=== PATIENT | male | born 1950 | race Caucasian/White ===

== ENCOUNTER → 2017-06-02 15:33 | Outpatient (CLI) | payer OTHER, SELFPAY ==
--- NOTE | 2017-06-02 15:41 | XR_ITS ---
XR shoulder LT min 2V HISTORY: ITS.REASON: LEFT SHOULDER PAIN ORDERING PHYSICIAN: Maurilio Hi MD PATIENT AGE: 66 years COMPARISON: None FINDINGS: Moderate osteoarthritic changes of the acromioclavicular joint bony hypertrophy and subacromial stenosis. Osteoarthritic changes also involve the glenohumeral joint. Subcortical lucency and sclerosis noted at the greater tuberosity which may be seen with rotator cuff disease. No fracture or dislocation. There is a well-circumscribed lucency along the superior glenoid and could be due to an old injury or accessory center of ossification. 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
--- NOTE | 2017-06-02 15:41 | XR_ITS ---
EXAM: XR cervical spine 4V HISTORY: ITS.REASON: NECK PAIN ORDERING PHYSICIAN: Maurilio Hi MD PATIENT AGE: 66 years COMPARISON: None FINDINGS: There is normal alignment. There is slight decrease in the disc spaces from C2 to C7 worse at the C6-C7 level. Small anterior osteophytes are present and are more prominent at C5-C6 and C6-C7. There is mild foraminal narrowing on the right at C6-C7 and on the left at 4 and C4-C5. Facet hypertrophic changes are present C4-C7. No lytic or blastic change. IMPRESSION: Cervical spondylosis with multilevel degenerative disc disease worse at C5-C6 and C6-C7 with mild facet arthritic changes and mild bilateral foraminal narrowing as described above
== END ==
PROVIDERS: PCP Internal Medicine Adolescent Medicine; Visit Provider Internal Medicine Adolescent Medicine
DX: M54.2 Cervicalgia (principal); M25.512 Pain in left shoulder
CPT/HCPCS: 72050; 73030

== ENCOUNTER 2017-06-10 11:20 | Outpatient (RCR) | payer OTHER, SELFPAY | END 2017-06-10 11:21 | disposition home or self-care (01) | LOC: PT 11:20 | PROVIDERS: PCP Internal Medicine Adolescent Medicine; Visit Provider Internal Medicine Adolescent Medicine | DX: M54.2 Cervicalgia (principal); M25.512 Pain in left shoulder ==

== ENCOUNTER → 2017-06-22 14:33 | Outpatient (POV) | payer OTHER, SELFPAY | PROVIDERS: PCP Internal Medicine Adolescent Medicine; Visit Provider Internal Medicine | DX: Z00.00 Encounter for general adult medical examination without abnormal findings (principal) ==

== ENCOUNTER → 2017-07-06 07:44 | Outpatient (CLI) | payer OTHER, SELFPAY ==
--- NOTE | 2017-07-06 07:48 | CT_ITS ---
CT chest wo con HISTORY: ITS.REASON: MULTIPLE LUNG NODULES ORDERING PHYSICIAN: Naresh Kidd MD PATIENT AGE: 66 years Technique: Axial images obtained. Sagittal and coronal reformatted images are also generated and reviewed. All CT scans at the facility use one or more dose reduction, viz: automated exposure control; ma/kV adjustment per patient size (including targeted exams where dose is matched to indication; i.e. head); or iterative reconstruction technique. CONTRAST: None COMPARISON: FINDINGS: There is moderate enlargement of the right lobe of the thyroid gland which may be better evaluated with ultrasound if clinically warranted to exclude an underlying thyroid nodule. There are few scattered small lymph nodes within the mediastinum which are 1 cm or less in short axis. No dominant adenopathy evident. Small hilar lymph nodes are present as well. There are coronary artery calcifications. There is normal heart size. No obvious pericardial effusion. No evidence of aortic aneurysm. 5 mm noncalcified nodule right upper lobe laterally. 3 mm nodule right upper lobe laterally which may contain a small focus of calcification. 8 mm noncalcified nodule in the mid aspect of the major fissure on the right. 4 mm noncalcified nodule left upper lobe centrally. 5 mm noncalcified nodule left lung base medially. No lobar consolidation or collapse. No effusions apparent. There is ankylosis of the thoracic spine. There are old left rib fractures. Upper abdominal images show a large calcified gallstone 2.7 cm. IMPRESSION: 1. Multiple small bilateral pulmonary nodules largest of which is 8 mm in the right lower lung zone. Probably benign nodules. Recommend 6 month follow-up to confirm stability. 2. Cholelithiasis
--- NOTE | 2017-07-06 08:00 | CI_ITS ---
Cerebrovascular Exam Indications: 785.9 Bruit. IMPRESSIONS 1. The bilateral vertebral arteries are patent with normal antegrade flow. 2. Study suggests less than 20% stenosis involving the right internal carotid artery. 3. Study suggests 20-49%(lower end of scale)stenosis involving the left internal carotid artery. Technically difficult exam secondary to body habitus History: Risk factors: Hypertension. Carotid duplex study. Complete study and Doppler flow study including spectral analysis, color and brown scale imaging. Height: Height: 170.2cm. Height: 67in. Weight: Weight: 104.3kg. Weight: 229.5lb. Body mass index: BMI: 36kg/m^2. Body surface area: BSA: 2.26m^2. Location: Vascular laboratory. Patient status: Outpatient. Tables: Arterial flow: + +--------+--------+ Location V sys V ed + +--------+--------+ Right CCA - proximal 99cm/s 22cm/s + +--------+--------+ Right CCA - distal 70.7cm/s 21.2cm/s + +--------+--------+ Right ECA 66cm/s -------- + +--------+--------+ Right ICA - proximal 70.7cm/s 21.2cm/s + +--------+--------+ Right ICA - mid 63.2cm/s 21.7cm/s + +--------+--------+ Right ICA - distal 79.8cm/s 22.3cm/s + +--------+--------+ Right vertebral 18.1cm/s -------- + +--------+--------+ Left CCA - proximal 105cm/s 29.9cm/s + +--------+--------+ Left CCA - distal 88cm/s 21.2cm/s + +--------+--------+ Left ECA 88.8cm/s -------- + +--------+--------+ Left ICA - proximal 71.5cm/s 25.9cm/s + +--------+--------+ Left ICA - mid 53.5cm/s 16cm/s + +--------+--------+ Left ICA - distal 70.8cm/s 21.4cm/s + +--------+--------+ Left vertebral 46.4cm/s -------- + +--------+--------+ Velocity ratios: + + + + + + Right, V sys Right, V ed Left, V sys Left, V ed + + + + + + Max ICA/dist CCA 1.13 1.05 0.81 1.22 + + + + + + (Report amended ) Electronically signed by: Kermit Conway [id number]
--- NOTE | 2017-07-06 08:00 | CA_ITS ---
PROCEDURE: 2-D M-mode and color Doppler study INDICATIONS FOR THE TEST: Chest painX COPD Heart Murmur Tobacco SmokingEX Palpitations Fatigue Syncope Edema HypertensionXDiabetes Mellitus Rheumatic Fever SOBXDOEXObesityXHyperlipidemia Family History HD Additional History PATIENT INFORMATION HEIGHT: 67 WEIGHT:230 GENDER: Male B/P:141/88 2-D/M-MODE INTERPRETATION: 2-D MEASUREMENTS OBSERVED VALUES IN CMS Right Ventricular Dimension (RVDd) 2.8 Interventricular Septum (Thickness)(IVsd) 1.2 Left Ventricular Internal Dimensions(LVIDd) 5.7 Left Ventricular Posterior Wall (Thickness)(LVPWd) 1.1 Aortic Root 3.6 Aortic Cusp Separation 1.2 Left Atrial Dimensions (LAD) 4.1 2D 1. Left atrium is mildly enlarged, left ventricle is normal size, mild concentric left ventricular hypertrophy, visually estimated ejection fraction 55% with no obvious regional wall motion abnormality. 2. The right atrium and right ventricle are normal size and contractility. 3. The aortic valve is thickened and calcified with mild restriction the leaflet mobility. 4. The mitral and tricuspid valve are grossly normal. 5. The pulmonic valve is poorly visualized. 6. No significant pericardial effusion noted. DOPPLER INTERROGATION: 1. The maximum aortic out flow velocity recorded study is 2.7 m/s, resulting in a mean gradient across valve of 16 mmHg, this represents mild aortic stenosis, there is mild aortic insufficiency present. 2. The mitral inflow velocity within normal range, there is no mitral stenosis, there is mild mitral regurgitation, grade 1 diastolic dysfunction seen without tissue Doppler evidence of raised left atrial pressure. 3. Mild tricuspid regurgitation, tricuspid and jet velocity insufficient for calculation of the right ventricular systolic pressure. CONCLUSION: 1. Mildly enlarged left atrium, normal left ventricular size, mild concentric left ventricular hypertrophy, visually estimated ejection fraction 55% with no obvious regional wall motion abnormality, grade 1 diastolic dysfunction seen without tissue Doppler evidence of raised left atrial pressure. 2. Thickened and calcified aortic valve with mean gradient across valve of 16 mmHg represents mild aortic stenosis, there is mild aortic insufficiency. 3. Mild mitral and tricuspid addition 4. No significant pericardial effusion noted.
== END ==
PROVIDERS: PCP Internal Medicine Adolescent Medicine; Visit Provider Internal Medicine
DX: R91.8 Other nonspecific abnormal finding of lung field (principal); R06.09 Other forms of dyspnea; R09.89 Other specified symptoms and signs involving the circulatory and respiratory systems; I51.9 Heart disease, unspecified
CPT/HCPCS: 71250; 93306; 93880

== ENCOUNTER → 2017-07-10 09:58 | Outpatient (CLI) | payer OTHER, SELFPAY ==
[2017-07-10 10:12] LABS: Basophils # 0.2 K/mm3 (0-0.2); Basophils % 1.7 % (0.1-2.0); Eosinophils # 0.4 K/mm3 (0.0-0.4); Eosinophils % 4.6 % (0.1-12.0); Hematocrit 45.8 % (42.0-52.0); Hemoglobin 16.1 g/dL (14.1-18.0); Lymphocytes # 3.9 K/mm3 (0.7-4.5); Lymphocytes % 41.7 K/mm3 (10-50); Mean Corpuscular HGB Conc 35.1 g/dL (31.8-35.4); Mean Corpuscular Hemoglobin 34.6 pg (27.0-31.2); Mean Corpuscular Volume 98.7 fl (80-94); Mean Platelet Volume 8.8 fl (7.4-10.4); Monocytes # 0.8 K/mm3 (0.1-1.0); Monocytes % 8.7 % (1.7-9.3); Neutrophils # 4.1 K/mm3 (1.8-7.8); Neutrophils % 43.4 % (37.0-80.0); Platelet Count 487 K/mm3 (142-424); Red Blood Count 4.64 M/mm3 (4.60-6.20); Red Cell Distribution Width 13.9 % (11.5-17.5); White Blood Count 9.5 K/mm3 (4.8-10.8)
[2017-07-10 11:03] LABS: Alanine Aminotransferase 28 U/L (12-78); Albumin Level 4.4 gm/dL (3.4-5.0); Albumin/Globulin Ratio 1.3 (1.1-1.8); Alkaline Phosphatase 99 U/L (46-116); Aspartate Amino Transferase 23 U/L (15-37); Bilirubin,Total 1.1 mg/dL (0.2-1.0); Blood Urea Nitrogen 12 mg/dL (7-18); Calcium 9.8 mg/dL (8.5-10.1); Carbon Dioxide 27 mmol/L (21.0-32.0); Chloride 104 mmol/L (98-107); Chol/HDL Ratio 3.6 (1-3.5); Cholesterol 196 mg/dL (140-200); Creatinine,Serum 1.25 mg/dL (0.70-1.30); Estimated Glomerular Filt Rate 58 ml/min (>60); Free Thyroxine Index 2.1 ug/dL (5.93-13.13); GFR (African American) 70 ML/MIN (>60); Globulin 3.4 gm/dl (1.3-3.2); Glucose 94 mg/dL (74-106); HDL Cholesterol 54 mg/dL (27-67); LDL Cholesterol 123 mg/dL (0-130); Sodium 141 mmol/L (136-145); T4 (Thyroxine) 6.6 ug/dl (4.7-13.3); Thyroid Stimulating Hormone 3.36 uIU/ml (0.358-3.740); Total Protein,Serum 7.8 gm/dL (6.4-8.2); Triglycerides 95 mg/dL (30-200); Triiodothryronine (T3) Uptake 32 % (31-39); VLDL Cholesterol 19 mg/dL (0-40)
== END ==
PROVIDERS: PCP Internal Medicine Adolescent Medicine; Visit Provider Internal Medicine Adolescent Medicine
DX: E04.9 Nontoxic goiter, unspecified (principal); R53.83 Other fatigue; R53.81 Other malaise
CPT/HCPCS: 36415; 80053; 80061; 84436; 84443; 84479; 85025

== ENCOUNTER → 2017-07-22 09:57 | Outpatient (CLI) | payer OTHER, SELFPAY ==
--- NOTE | 2017-07-22 | XR_ITS ---
XR chest 2V HISTORY: ITS.REASON: SOB..NATI ORDERING PHYSICIAN: Naresh Kidd MD PATIENT AGE: 66 years COMPARISON: 01/02/2016 FINDINGS: There is cardiomegaly with mild pulmonary venous redistribution suggesting mild CHF. No lobar consolidation collapse or pulmonary edema evident. No lobar consolidation or collapse. There is ankylosis of the thoracic spine. IMPRESSION: Mild CHF
--- NOTE | 2017-07-22 10:04 | NM_ITS ---
NM pul vent and perfuse CLINICAL INDICATION: ITS.REASON: DYSPNEA ON EXERTION,MASSIVE PULMONARY EMBOLISM,FATIGUE ORDERING PHYSICIAN: Naresh Kidd MD PATIENT AGE: 66 years DOSE: 35.6 mCi technetium DTPA inhaled. 7.9 mCi technetium MAA IV COMPARISON is made to chest x-ray of the same day FINDINGS: Mismatching defect present involving the lateral segment of the right middle lobe. No other mismatches defects are evident. No radiographic abnormality evident in this region. IMPRESSION: Intermediate probability for pulmonary embolus. This requires correlation with clinical findings
== END ==
PROVIDERS: PCP Internal Medicine Adolescent Medicine; Visit Provider Internal Medicine
DX: R06.02 Shortness of breath (principal); R53.83 Other fatigue; I26.99 Other pulmonary embolism without acute cor pulmonale
CPT/HCPCS: 71046; 78582; A9540; A9567

== ENCOUNTER → 2017-09-23 10:05 | Outpatient (POV) | payer MEDICARE, OTHER, SELFPAY | PROVIDERS: Visit Provider Dermatology | DX: Z00.00 Encounter for general adult medical examination without abnormal findings (principal) ==

== ENCOUNTER → 2017-10-19 14:13 | Outpatient (POV) | payer MEDICARE, OTHER, SELFPAY | PROVIDERS: Visit Provider Internal Medicine | DX: Z00.00 Encounter for general adult medical examination without abnormal findings (principal) ==

== ENCOUNTER → 2017-10-28 11:21 | Outpatient (CLI) | payer MEDICARE, OTHER, SELFPAY ==
--- NOTE | 2017-10-28 11:24 | NM_ITS ---
History and Indications: History of IN, obesity, hypertension, hyperlipidemia, chest pain, shortness of breath fatigued Procedure: Patient received a 0.4 mg of Lexiscan, resting heart rate was 63 beats resting blood pressure 145/82, with Lexiscan maximum heart rate achieved was 87 bpm which is less than 85% of the maximum predicted heart rate and a blood pressure was 151/79. With Lexiscan patient denied any complained of chest pain. Electrocardiogram: Resting electrocardiogram showed sinus bradycardia, nonspecific ST-T changes, with Lexiscan there is less than 1.[address] segment depression noted from the baseline EKG. The EKG portion of the Lexiscan Myoview is nondiagnostic. Cardiac stress and resting SPECT images: Cardiac stress and rest SPECT images were obtained using technetium 99 Myoview 30.7 mCi at stress than 10.1 mCi at rest. Gated SPECT further analysis of segmental wall motion and calculation of the ejection fraction also done. Cardiac stress and rest SPECT images show a fixed defect involving the inferior and posterobasal wall consistent with area of prior myocardial scarring, no significant jose r-infarct ischemia seen, computer derived ejection fraction is 38% with inferior and posterobasal wall hypokinesis. Conclusion: 1. The EKG portion of the Lexiscan Myoview is nondiagnostic. 2. Scintigraphic evidence of prior myocardial scarring involving the inferior and posterobasal wall, computer derived ejection fraction is 38% with segmental wall motion abnormality described above, right ventricle is normal size and contractility. 3. Abnormal Lexiscan Myoview study.
--- NOTE | 2017-10-28 13:38 | CA_ITS ---
PROCEDURE: 2-D M-mode and color Doppler study INDICATIONS FOR THE TEST: Chest pain X COPD Heart Murmur Tobacco SmokingEX Palpitations Fatigue Syncope Edema Hypertension Diabetes Mellitus Rheumatic Fever SOBXDOEXObesityXHyperlipidemia Family History HD Additional History ABN EKG PATIENT INFORMATION HEIGHT: 68 WEIGHT:235 GENDER: Male B/P:164/89 2-D/M-MODE INTERPRETATION: 2-D MEASUREMENTS OBSERVED VALUES IN CMS Right Ventricular Dimension (RVDd) 2.5 Interventricular Septum (Thickness)(IVsd) 1.6 Left Ventricular Internal Dimensions(LVIDd) 5.8 Left Ventricular Posterior Wall (Thickness)(LVPWd) .7 Aortic Root 3.7 Aortic Cusp Separation 1.1 Left Atrial Dimensions (LAD) 5.0 2D 1. Left atrium is moderately enlarged, left ventricle is normal size, mild concentric left ventricular hypertrophy, visually estimated ejection fraction 55% with no obvious regional wall motion abnormality. 2. The right atrium and right ventricle are normal size and contractility. 3. The aortic valve is thickened and calcified with restriction the leaflet mobility. 4. The mitral and tricuspid valve leaflets are minimally thickened. 5. The pulmonic valve is poorly visualized. 6. No significant pericardial effusion noted. DOPPLER INTERROGATION: 1. The maximum aortic out flow velocity contrast study 3 m/s, resulting in a mean gradient across valve of 17 mmHg, valve area is not accurately calculated, this represents mild aortic stenosis, there is mild aortic insufficiency present. 2. The mitral inflow velocity within normal range, there is no mitral stenosis, there is mild mitral regurgitation. Doppler evidence of impaired LV relaxation seen, there is no tissue Doppler performed. 3. Mild tricuspid regurgitation, tricuspid and enteric velocity insufficient for acquisition of the right ventricular systolic pressure. CONCLUSION: 1. Moderately enlarged left atrium, normal left ventricular size, mild concentric left ventricular hypertrophy, visually estimated ejection fraction 55% with no obvious regional wall motion abnormality, Doppler evidence of impaired LV relaxation seen, there is no tissue Doppler performed. 2. Thickened and calcified aortic valve, mean gradient across valve of 17 mmHg represents mild aortic stenosis, there is mild aortic insufficiency. 3. Mild mitral and tricuspid regurgitation 4. No significant pericardial effusion noted.
--- NOTE | 2017-10-28 14:21 | HMH.ITSHM ---
amlodipine asa bisoprolol citalopram loratadine memantine tiotropium
== END ==
PROVIDERS: PCP Internal Medicine; Visit Provider Internal Medicine
DX: R07.9 Chest pain, unspecified (principal); R94.31 Abnormal electrocardiogram [ECG] [EKG]
CPT/HCPCS: 78452; 93017; 93306; A9502; J2785

== ENCOUNTER → 2018-01-18 09:21 | Outpatient (CLI) | payer MEDICARE, OTHER, SELFPAY ==
[2018-01-18 10:02] LABS: Anion Gap 12.6 mEq/L (5-15); Blood Urea Nitrogen 22 mg/dL (7-18); Calcium 9.7 mg/dL (8.5-10.1); Carbon Dioxide 30 mmol/L (21.0-32.0); Chloride 101 mmol/L (98-107); Creatinine,Serum 1.32 mg/dL (0.70-1.30); Estimated Glomerular Filt Rate 54 ml/min (>60); GFR (African American) 66 ML/MIN (>60); Glucose 92 mg/dL (74-106); Potassium 4.6 mmoL/L (3.5-5.1); Sodium 139 mmol/L (136-145)
== END ==
PROVIDERS: Visit Provider Urology
DX: G47.33 Obstructive sleep apnea (adult) (pediatric) (principal); I10 Essential (primary) hypertension; I35.0 Nonrheumatic aortic (valve) stenosis; I82.409 Acute embolism and thrombosis of unspecified deep veins of unspecified lower extremity; R06.09 Other forms of dyspnea; R53.83 Other fatigue; R94.30 Abnormal result of cardiovascular function study, unspecified; Z86.711 Personal history of pulmonary embolism; Z99.89 Dependence on other enabling machines and devices
CPT/HCPCS: 36415; 80048

== ENCOUNTER → 2018-01-25 09:30 | Outpatient (CLI) | payer MEDICARE, OTHER, SELFPAY ==
--- NOTE | 2018-01-25 09:34 | XR_ITS ---
XR chest 2V HISTORY: Cough and congestion, ex-smoker ITS.REASON: z ORDERING PHYSICIAN: Edel Norman PATIENT AGE: 67 years COMPARISON: 07/22/2017 FINDINGS: There is cardiomegaly without failure. Patchy density is present in the left lower lobe overlying the left heart suspicious for an area of infiltrate. There are some chronic changes with some coarsening of the bronchovascular markings. No acute bony anomalies. IMPRESSION: Chronic changes with patchy infiltrate in the left lower lung zone
== END ==
PROVIDERS: PCP Internal Medicine Adolescent Medicine; Visit Provider Urology
DX: R06.00 Dyspnea, unspecified (principal)
CPT/HCPCS: 71046

== ENCOUNTER → 2018-01-28 10:14 | Outpatient (CLI) | payer MEDICARE, OTHER, SELFPAY ==
[2018-01-28 12:40] LABS: Blood Urea Nitrogen 27 mg/dL (7-18); Calcium 9.9 mg/dL (8.5-10.1); Carbon Dioxide 29 mmol/L (21.0-32.0); Chloride 102 mmol/L (98-107); Creatinine,Serum 1.33 mg/dL (0.70-1.30); Estimated Glomerular Filt Rate 54 ml/min (>60); GFR (African American) 65 ML/MIN (>60); Glucose 76 mg/dL (74-106); Sodium 142 mmol/L (136-145)
== END ==
PROVIDERS: Visit Provider Urology
DX: R06.00 Dyspnea, unspecified (principal)
CPT/HCPCS: 36415; 80048

== ENCOUNTER → 2018-02-15 11:36 | Outpatient (POV) | payer MEDICARE, OTHER, SELFPAY | PROVIDERS: Visit Provider Internal Medicine | DX: Z00.00 Encounter for general adult medical examination without abnormal findings (principal) ==

== ENCOUNTER → 2018-05-10 10:54 | Outpatient (POV) | payer MEDICARE, OTHER, SELFPAY | PROVIDERS: Visit Provider Internal Medicine | DX: Z00.00 Encounter for general adult medical examination without abnormal findings (principal) ==

== ENCOUNTER → 2018-06-08 10:06 | Outpatient (CLI) | payer MEDICARE, OTHER, SELFPAY ==
[2018-06-08 10:55] LABS: Basophils # 0.1 K/mm3 (0-0.2); Eosinophils # 0.4 K/mm3 (0.0-0.4); Eosinophils % 3.3 % (0.1-12.0); Hematocrit 44.2 % (42.0-52.0); Hemoglobin 15.3 g/dL (14.1-18.0); Lymphocytes # 4.2 K/mm3 (0.7-4.5); Lymphocytes % 31.6 % (10-50); Mean Corpuscular HGB Conc 34.7 g/dL (31.8-35.4); Mean Corpuscular Hemoglobin 34.2 pg (27.0-31.2); Mean Corpuscular Volume 98.6 fl (80-94); Mean Platelet Volume 8.2 fl (7.4-10.4); Monocytes # 0.8 K/mm3 (0.1-1.0); Monocytes % 6.1 % (1.7-9.3); Neutrophils # 7.8 K/mm3 (1.8-7.8); Platelet Count 576 K/mm3 (142-424); Red Blood Count 4.48 M/mm3 (4.60-6.20); White Blood Count 13.4 K/mm3 (4.8-10.8)
[2018-06-08 11:31] LABS: Alanine Aminotransferase 27 U/L (12-78); Alkaline Phosphatase 88 U/L (46-116); Aspartate Amino Transferase 14 U/L (15-37); Bilirubin,Direct 0.2 mg/dL (0.0-0.2); Bilirubin,Indirect 0.6 mg/dL (0.0-0.9); Bilirubin,Total 0.8 mg/dL (0.2-1.0); Chol/HDL Ratio 3.3 (1-3.5); Cholesterol 165 mg/dL (140-200); HDL Cholesterol 50 mg/dL (27-67); LDL Cholesterol 88 mg/dL (0-130); Total Protein,Serum 7.5 gm/dL (6.4-8.2); Triglycerides 134 mg/dL (30-200); VLDL Cholesterol 27 mg/dL (0-40)
== END ==
PROVIDERS: Internal Medicine Medical Oncology; Visit Provider Urology
DX: I25.10 Atherosclerotic heart disease of native coronary artery without angina pectoris (principal); I11.9 Hypertensive heart disease without heart failure
CPT/HCPCS: 36415; 80061; 80076; 85025

== ENCOUNTER → 2018-06-28 20:01 | Outpatient (CLI) | payer MEDICARE, OTHER, SELFPAY | PROVIDERS: PCP Internal Medicine Adolescent Medicine; Visit Provider Nurse Practitioner Family | DX: G47.33 Obstructive sleep apnea (adult) (pediatric) (principal) | CPT/HCPCS: 95811 ==

== ENCOUNTER → 2018-08-16 12:38 | Outpatient (POV) | payer MEDICARE, OTHER, SELFPAY | PROVIDERS: Visit Provider Internal Medicine | DX: Z00.00 Encounter for general adult medical examination without abnormal findings (principal) ==

== ENCOUNTER → 2018-09-13 11:09 | Outpatient (CLI) | payer MEDICARE, OTHER, SELFPAY ==
--- NOTE | 2018-09-13 11:13 | XR_ITS ---
XR knee LT 4V HISTORY: ITS.REASON: bilateral knee pain ORDERING PHYSICIAN: George Merrill MD PATIENT AGE: 67 years COMPARISON: None FINDINGS: No fracture or dislocation. No lytic or blastic change. Normal mineralization. There is a prosthesis at the medial femoral condyle medial tibial plateau. Alignment appears normal. There is at least mild narrowing of the medial aspect of the patellofemoral joint space and there is a 2 mm corticated ossific density adjacent to the medial posterior cortex of the patella on the sunrise view. There is also spur at the anterior superior patella at the quadriceps tendon attachment. There are some posterior vascular calcified plaques. No other significant findings IMPRESSION: No acute process. Mild degenerative change at the patellofemoral joint medially. Knee prosthesis. Possible small loose ossific body at the medial aspect of the patellofemoral joint. This could be sequela from an old injury or degenerative.
--- NOTE | 2018-09-13 11:13 | XR_ITS ---
XR knee RT 4V HISTORY: ITS.REASON: bilateral knee pain ORDERING PHYSICIAN: George Merrill MD PATIENT AGE: 67 years COMPARISON: None FINDINGS: No fracture or dislocation. No lytic or blastic change. Normal mineralization. There is moderate narrowing of the patellofemoral joint space. There is a knee prosthesis at the level of the medial femoral condyle and medial tibial plateau. There is thickening of the cortex at the proximal shaft of the fibula likely sequela from old healed fracture. There are soft tissue vascular calcified plaques. No other significant findings IMPRESSION: Knee prosthesis. No acute process. Arthritic change at the patellofemoral joint.
== END ==
PROVIDERS: PCP Internal Medicine Adolescent Medicine; Visit Provider Orthopaedic Surgery
DX: M25.562 Pain in left knee (principal); M25.561 Pain in right knee
CPT/HCPCS: 73564

== ENCOUNTER → 2018-09-20 08:25 | Outpatient (CLI) | payer MEDICARE, OTHER, SELFPAY ==
[2018-09-20 10:31] LABS: Anion Gap 14.5 mEq/L (5-15); Blood Urea Nitrogen 32 mg/dL (7-18); Calcium 10.1 mg/dL (8.5-10.1); Carbon Dioxide 29 mmol/L (21.0-32.0); Chloride 102 mmol/L (98-107); Creatinine,Serum 1.28 mg/dL (0.70-1.30); Estimated Glomerular Filt Rate 56 ml/min (>60); GFR (African American) 68 ML/MIN (>60); Glucose 93 mg/dL (74-106); Sodium 139 mmol/L (136-145)
[2018-09-20 10:36] LABS: Potassium 6.5 mmoL/L (3.5-5.1)
== END ==
PROVIDERS: Visit Provider Internal Medicine
DX: E66.9 Obesity, unspecified (principal); E78.5 Hyperlipidemia, unspecified; G47.33 Obstructive sleep apnea (adult) (pediatric); I10 Essential (primary) hypertension; I25.10 Atherosclerotic heart disease of native coronary artery without angina pectoris; I35.0 Nonrheumatic aortic (valve) stenosis; I50.9 Heart failure, unspecified; R06.00 Dyspnea, unspecified
CPT/HCPCS: 36415; 80048

== ENCOUNTER → 2018-09-28 14:25 | Outpatient (CLI) | payer MEDICARE, OTHER, SELFPAY ==
[2018-09-28 14:50] LABS: Basophils # 0.1 K/mm3 (0-0.2); Basophils % 0.5 % (0.1-2.0); Eosinophils # 0.3 K/mm3 (0.0-0.4); Eosinophils % 1.7 % (0.1-12.0); Hematocrit 47.9 % (42.0-52.0); Hemoglobin 15.8 g/dL (14.1-18.0); Lymphocytes # 3.4 K/mm3 (0.7-4.5); Lymphocytes % 18.8 % (10-50); Mean Corpuscular Hemoglobin 34.9 pg (27.0-31.2); Mean Corpuscular Volume 105.7 fl (80-94); Mean Platelet Volume 9.5 fl (7.4-10.4); Monocytes # 0.8 K/mm3 (0.1-1.0); Monocytes % 4.7 % (1.7-9.3); Neutrophils # 13.3 K/mm3 (1.8-7.8); Neutrophils % 74.3 % (37.0-80.0); Platelet Count 472 K/mm3 (142-424); Red Blood Count 4.53 M/mm3 (4.60-6.20); Red Cell Distribution Width 14.1 % (11.5-17.5); White Blood Count 17.9 K/mm3 (4.8-10.8)
[2018-09-28 14:58] LABS: MANUAL DIFFERENTIAL MANUAL DIFFERENTIAL (MANUAL DIFF)
[2018-09-28 15:53] LABS: C-Reactive Protein < 0.2 mg/L (0.0-0.9)
[2018-09-28 17:23] LABS: Erythrocyte Sedimentation Rate 20 mm/hr (0-20)
[2018-09-28 19:09] LABS: Lymphocytes % 23 % (10-50); Monocytes % 7 % (2-9); Neutrophils % 69 % (42-76); Total Cells Counted 100
[2018-09-28 19:11] LABS: Hypochromasia 2+; Platelet Estimate Clumped
[2018-10-07 17:43] LABS: Interleukin-6, Serum 2.2 pg/mL (0.0-15.5)
== END ==
PROVIDERS: Visit Provider Orthopaedic Surgery
DX: B99.9 Unspecified infectious disease (principal); Z96.651 Presence of right artificial knee joint; R20.8 Other disturbances of skin sensation; M25.561 Pain in right knee
CPT/HCPCS: 36415; 83520; 85007; 85025; 85651; 86140

== ENCOUNTER 2018-09-29 08:59 | Outpatient (RCR) | payer MEDICARE, OTHER, SELFPAY | END 2018-12-12 13:55 | disposition home or self-care (01) | LOC: PT 08:59 | PROVIDERS: Visit Provider Specialist | DX: I50.33 Acute on chronic diastolic (congestive) heart failure (principal); I35.0 Nonrheumatic aortic (valve) stenosis; R06.02 Shortness of breath | CPT/HCPCS: 93798 ==

== ENCOUNTER → 2018-12-27 14:09 | Outpatient (CLI) | payer MEDICARE, OTHER, SELFPAY ==
[2018-12-27 15:55] LABS: Anion Gap 13.6 mEq/L (5-15); Blood Urea Nitrogen 21 mg/dL (7-18); Calcium 9.5 mg/dL (8.5-10.1); Carbon Dioxide 30 mmol/L (21.0-32.0); Chloride 101 mmol/L (98-107); Creatinine,Serum 1.37 mg/dL (0.70-1.30); Estimated Glomerular Filt Rate 52 ml/min (>60); Free T4 (Free Thyroxine) 0.66 ng/dl (0.76-1.46); GFR (African American) 63 ML/MIN (>60); Glucose 91 mg/dL (74-106); Potassium 5.6 mmoL/L (3.5-5.1); Sodium 139 mmol/L (136-145); Thyroid Stimulating Hormone 3.13 uIU/ml (0.358-3.740)
== END ==
PROVIDERS: Visit Provider Nurse Practitioner Family
DX: E78.5 Hyperlipidemia, unspecified (principal); I11.9 Hypertensive heart disease without heart failure; I25.10 Atherosclerotic heart disease of native coronary artery without angina pectoris; I27.20 Pulmonary hypertension, unspecified; I50.9 Heart failure, unspecified
CPT/HCPCS: 36415; 80048; 84439; 84443

== ENCOUNTER → 2019-01-02 12:50 | Outpatient (CLI) | payer MEDICARE, OTHER, SELFPAY ==
--- NOTE | 2019-01-02 12:52 | CA_ITS ---
APPROVED REPORT EXAM: Comprehensive 2D, Doppler, and color-flow Echocardiogram Guest Service Host: Amanda Cavanaugh RVT Ht: 5 ft 7 in Wt: 247lbs BSA: 2.21 BP: 121/67 mmHg Indications: COPD, Shortness of Breath, CAD, Hyperlipidemia, Hypertension,ISAAC, MILD ,HOME O2 2D Dimensions LVOT 1.10 cm (M/F) 1.5-2.5 M-Mode Dimensions LA Diam 3.90 cm (1.9-4.0) LVDd 6.50 cm (3.5-5.7) Ao Diam 3.50 cm (2.0-3.7) LVDs 4.50 cm (3.5-5.7) AV Cusp 0.80 cm (1.5-2.6) IVSd 1.30 cm (0.6-1.1) PWd 1.70 cm (0.6-1.1) EF (Teich) 57.20% FS 30.80% EDV (Teich) 216.00 mL ESV (Teich) 92.40 mL LV Diastology E/A Ratio 0.7 MED E' 5.26 (< 7 cm/sec) E'/MED E' Ratio 9.70 (>14) LAT E' 7.02 (<10 cm/sec) E/LAT E' Ratio 7.20 (>14) Aortic Valve LVOT Max 254.00 (70-110 cm/s) LVOT VTI 58.50 cm AoV Peak Srinivas. 288.00 (50-130 cm/s) AI PHT 1235.00 ms AO Peak GR. 33.00 mmHg AO Mean GR. 16.00 (<5 mmHg) AO VTI 59.70 (18-25 cm) GUIDO (VTI) 0.93 (2.5-4.5 cm2) Mitral Valve MV E Max Srinivas. 50.80 (40-130 cm/s) MVA VTI 1.73 (4.0-6.0 cm2) MV A Velocity 74.00 (40-130 cm/s) E/A Ratio 0.70 MV Mean Gr. 1.00 (<2mmHg) MV PHT 73.00 ms MVA PHT 3.0 cm2 Pulmonary Valve PA Accel Time 134.00 (>120 msec) Left Ventricle Left atrium is mildly enlarged, left ventricle is normal size, mild concentric left ventricular hypertrophy, visually estimated ejection fraction of 55% with no regional wall motion abnormality. Grade 1 diastolic dysfunction seen without tissue Doppler evidence of raise left atrial pressure. Right Ventricle Right atrium and right ventricle mildly enlarged with normal contractility. Aortic Valve Aortic valve is thickened and calcified with restriction to leaflet mobility, the maximum aortic outflow velocity is 2.9 m/s, resulting in a mean gradient across valve of 16 mmHg, this represents mild aortic stenosis, there is mild aortic insufficiency. Mitral Valve Mitral inflow velocities within normal range, there is no mitral stenosis, there is mild mitral regurgitation. Tricuspid Valve Tricuspid valve leaflets are minimally thickened, there is mild tricuspid regurgitation, tricuspid regurgitation jet velocity is inadequate for calculation of the right ventricular systolic pressure. Pulmonic Valve Pulmonic valve is poorly visualized. Great Vessels Aortic root is normal size. Pericardium No significant pericardial effusion noted. Conclusion 1. Mildly enlarged left atrium, normal left ventricular size, mild concentric left ventricular hypertrophy, visually estimated ejection fraction 55% with no regional wall motion abnormality, grade 1 diastolic dysfunction seen without tissue Doppler evidence of raise left atrial pressure. 2. Mildly enlarged right ventricle with normal contractility. 3. Thickened and calcified aortic valve, however the mean gradient across valve is 16 mmHg, represents mild aortic stenosis, there is mild aortic insufficiency. 4. Mild mitral and tricuspid regurgitation 5. No significant pericardial effusion noted. Electronically signed by : John Wild, 01/03/2019 05:48:59
== END ==
PROVIDERS: PCP Internal Medicine Adolescent Medicine; Visit Provider Nurse Practitioner Family
DX: E78.5 Hyperlipidemia, unspecified (principal); I11.9 Hypertensive heart disease without heart failure; I25.10 Atherosclerotic heart disease of native coronary artery without angina pectoris; I26.99 Other pulmonary embolism without acute cor pulmonale; I27.20 Pulmonary hypertension, unspecified; I50.9 Heart failure, unspecified
CPT/HCPCS: 93306

== ENCOUNTER → 2019-01-10 09:34 | Outpatient (POV) | payer MEDICARE, OTHER, SELFPAY | PROVIDERS: Visit Provider Internal Medicine | DX: Z00.00 Encounter for general adult medical examination without abnormal findings (principal) ==

== ENCOUNTER → 2019-04-10 17:11 | Outpatient (CLI) | payer MEDICARE, OTHER, SELFPAY ==
[2019-04-10 17:25] LABS: Basophils # 0.2 K/mm3 (0-0.2); Basophils % 1.4 % (0.1-2.0); Eosinophils # 0.5 K/mm3 (0.0-0.4); Eosinophils % 3.7 % (0.1-12.0); Hematocrit 44.1 % (42.0-52.0); Hemoglobin 15.2 g/dL (14.1-18.0); Lymphocytes # 5.2 K/mm3 (0.7-4.5); Lymphocytes % 38.8 % (10-50); Mean Corpuscular HGB Conc 34.5 g/dL (31.8-35.4); Mean Corpuscular Hemoglobin 32.9 pg (27.0-31.2); Mean Corpuscular Volume 95.3 fl (80-94); Mean Platelet Volume 9.5 fl (7.4-10.4); Monocytes # 1.1 K/mm3 (0.1-1.0); Monocytes % 8.2 % (1.7-9.3); Neutrophils # 6.4 K/mm3 (1.8-7.8); Neutrophils % 47.9 % (37.0-80.0); Platelet Count 441 K/mm3 (142-424); Red Blood Count 4.62 M/mm3 (4.60-6.20); White Blood Count 13.3 K/mm3 (4.8-10.8)
[2019-04-10 18:51] LABS: Alanine Aminotransferase 31 U/L (12-78); Albumin Level 3.9 gm/dL (3.4-5.0); Albumin/Globulin Ratio 1.3 (1.1-1.8); Alkaline Phosphatase 88 U/L (46-116); Anion Gap 12.6 mEq/L (5-15); Aspartate Amino Transferase 15 U/L (15-37); Bilirubin,Total 0.6 mg/dL (0.2-1.0); Blood Urea Nitrogen 23 mg/dL (7-18); Calcium 9.4 mg/dL (8.5-10.1); Carbon Dioxide 29 mmol/L (21.0-32.0); Chloride 102 mmol/L (98-107); Creatinine,Serum 1.46 mg/dL (0.70-1.30); Estimated Glomerular Filt Rate 48 ml/min (>60); Free Thyroxine Index 2.3 ug/dL (5.93-13.13); GFR (African American) 58 ML/MIN (>60); Globulin 3.1 gm/dl (1.3-3.2); Glucose 90 mg/dL (74-106); Potassium 4.6 mmoL/L (3.5-5.1); Sodium 139 mmol/L (136-145); T4 (Thyroxine) 7.2 ug/dl (4.7-13.3); Thyroid Stimulating Hormone 5.14 uIU/ml (0.358-3.740); Triiodothryronine (T3) Uptake 32 % (31-39)
== END ==
PROVIDERS: Visit Provider Internal Medicine Adolescent Medicine
DX: I50.30 Unspecified diastolic (congestive) heart failure (principal)
CPT/HCPCS: 36415; 80053; 84436; 84443; 84479; 85025

== ENCOUNTER → 2019-07-10 15:38 | Outpatient (CLI) | payer MEDICARE, OTHER, SELFPAY ==
--- NOTE | 2019-07-10 15:43 | XR_ITS ---
PROCEDURE: XR CHEST 2V CLINICAL HISTORY: CHRONIC COUGH,COPD Cough, COPD COMPARISON: CXR2V XR chest 2V from 07/22/2017 CXR2V XR chest 2V from 01/25/2018 CXR2V XR chest 2V from 04/21/[address] angio chest from 04/21/2018 FINDINGS: There is cardiomegaly without failure. The lungs are clear without infiltrates, suspicious nodules, or pleural effusions. Degenerative changes thoracic spine IMPRESSION: Cardiomegaly otherwise negative Dictated by: Kermit Conway MD 07/10/2019 16:28 Electronically signed by Kermit Conway MD in [facility] 07/10/2019 16:28
[2019-07-10 16:49] LABS: Chloride 98 mmol/L (98-107); Potassium 4.8 mmoL/L (3.5-5.1); Sodium 138 mmol/L (136-145)
[2019-07-10 16:52] LABS: Anion Gap 14.8 mEq/L (5-15); Blood Urea Nitrogen 30 mg/dl (9-20); Calcium 10.2 mg/dl (8.4-10.2); Carbon Dioxide 30 mmol/L (22.0-30.0); Estimated Glomerular Filt Rate 43 ml/min (>60); GFR (African American) 53 ML/MIN (>60); Glucose 88 mg/dl (74-100)
[2019-07-10 17:01] LABS: NT Pro Brain Natriuretic Pep. 240 pg/mL (0-125)
== END ==
PROVIDERS: PCP Nurse Practitioner Family; Visit Provider Nurse Practitioner Family
DX: R06.02 Shortness of breath; R42 Dizziness and giddiness; R94.31 Abnormal electrocardiogram [ECG] [EKG]; E78.2 Mixed hyperlipidemia; I11.0 Hypertensive heart disease with heart failure; I25.10 Atherosclerotic heart disease of native coronary artery without angina pectoris; I27.20 Pulmonary hypertension, unspecified; I35.0 Nonrheumatic aortic (valve) stenosis; I50.32 Chronic diastolic (congestive) heart failure
CPT/HCPCS: 36415; 71046; 80048; 83880

== ENCOUNTER → 2019-10-16 12:12 | Outpatient (CLI) | payer MEDICARE, OTHER, SELFPAY ==
--- NOTE | 2019-10-16 12:32 | XR_ITS ---
PROCEDURE: XR KNEE LT 4V CLINICAL INDICATION: left knee pain COMPARISON: No exams were available for comparison FINDINGS: Prior medial hemiarthroplasty with good alignment of the prosthesis. Minimal osteoarthritic changes are present at the lateral compartment and patellofemoral joint with knee joint effusion noted. No acute fracture or dislocation. IMPRESSION: Postsurgical changes as described above Dictated by: Kermit Conway MD 10/16/2019 22:26 Electronically signed by Kermit Conway MD in [facility] 10/16/2019 22:26
[2019-10-16 13:08] LABS: Basophils # 0.3 K/mm3 (0-0.2); Basophils % 1.3 % (0.1-2.0); Eosinophils # 0.5 K/mm3 (0.0-0.4); Eosinophils % 2.4 % (0.1-12.0); Hematocrit 42.8 % (42.0-52.0); Lymphocytes # 7.2 K/mm3 (0.7-4.5); Lymphocytes % 35.3 % (10-50); Mean Corpuscular HGB Conc 37.3 g/dL (31.8-35.4); Mean Corpuscular Hemoglobin 35.9 pg (27.0-31.2); Mean Corpuscular Volume 96.2 fl (80-94); Mean Platelet Volume 9.3 fl (7.4-10.4); Monocytes # 1.1 K/mm3 (0.1-1.0); Monocytes % 5.5 % (1.7-9.3); Neutrophils # 11.4 K/mm3 (1.8-7.8); Neutrophils % 55.5 % (37.0-80.0); Platelet Count 520 K/mm3 (142-424); Red Blood Count 4.45 M/mm3 (4.60-6.20); Red Cell Distribution Width 15.1 % (11.5-17.5); White Blood Count 20.5 K/mm3 (4.8-10.8)
[2019-10-16 13:16] LABS: MANUAL DIFFERENTIAL MANUAL DIFFERENTIAL (MANUAL DIFF)
[2019-10-16 14:04] LABS: C-Reactive Protein 21.5 mg/L (0-4)
[2019-10-16 14:57] LABS: Erythrocyte Sedimentation Rate 35 mm/hr (0-20)
[2019-10-16 16:25] LABS: Lymphocytes % 39 % (10-50); Monocytes % 5 % (2-9); Neutrophils % 56 % (42-76); Platelet Estimate Slight Increase; RBC Morphology Normal; Total Cells Counted 100
== END ==
PROVIDERS: PCP Internal Medicine Adolescent Medicine; Visit Provider Orthopaedic Surgery
DX: M25.562 Pain in left knee (principal); M25.062 Hemarthrosis, left knee
CPT/HCPCS: 36415; 73564; 85007; 85025; 85651; 86140; 87070; 87205

== ENCOUNTER → 2019-10-17 14:13 | Outpatient (CLI) | payer MEDICARE, OTHER, SELFPAY | PROVIDERS: PCP Internal Medicine Adolescent Medicine; Visit Provider Specialist | DX: G47.33 Obstructive sleep apnea (adult) (pediatric) (principal); G47.34 Idiopathic sleep related nonobstructive alveolar hypoventilation; Z68.39 Body mass index [BMI] 39.0-39.9, adult | CPT/HCPCS: 94762 ==

== ENCOUNTER → 2019-10-20 12:49 | Outpatient (CLI) | payer MEDICARE, OTHER, SELFPAY ==
[2019-10-20 13:54] LABS: Chloride 97 mmol/L (98-107); Sodium 139 mmol/L (136-145)
[2019-10-20 13:55] LABS: Potassium 5.5 mmoL/L (3.5-5.1)
[2019-10-20 13:58] LABS: Anion Gap 17.5 mEq/L (5-15); Blood Urea Nitrogen 22 mg/dl (9-20); Calcium 10.2 mg/dl (8.4-10.2); Carbon Dioxide 30 mmol/L (22.0-30.0); Estimated Glomerular Filt Rate 43 ml/min (>60); GFR (African American) 52 ML/MIN (>60); Glucose 143 mg/dl (74-100)
[2019-10-20 14:03] LABS: NT Pro Brain Natriuretic Pep. 163 pg/mL (0-125)
== END ==
PROVIDERS: Visit Provider Nurse Practitioner Family
DX: E78.5 Hyperlipidemia, unspecified (principal); G47.33 Obstructive sleep apnea (adult) (pediatric); I25.10 Atherosclerotic heart disease of native coronary artery without angina pectoris; I27.20 Pulmonary hypertension, unspecified; I35.0 Nonrheumatic aortic (valve) stenosis; I50.9 Heart failure, unspecified; R06.02 Shortness of breath; Z86.718 Personal history of other venous thrombosis and embolism; Z99.89 Dependence on other enabling machines and devices; I11.0 Hypertensive heart disease with heart failure
CPT/HCPCS: 36415; 80048; 83880

== ENCOUNTER → 2019-11-23 10:24 | Outpatient (CLI) | payer MEDICARE, OTHER, SELFPAY ==
[2019-11-23 13:11] LABS: Coronavirus 19 IgG Antibody Negative (Negative); Coronavirus 19 IgM Antibody Negative (Negative)
== END ==
PROVIDERS: PCP Internal Medicine Adolescent Medicine; Visit Provider Nurse Practitioner Family
DX: Z01.818 Encounter for other preprocedural examination (principal); G47.33 Obstructive sleep apnea (adult) (pediatric); G47.36 Sleep related hypoventilation in conditions classified elsewhere; I10 Essential (primary) hypertension; R40.0 Somnolence
CPT/HCPCS: 36415; 86328; 95811

== ENCOUNTER → 2019-12-21 10:21 | Outpatient (POV) | payer MEDICARE, OTHER, SELFPAY | PROVIDERS: Visit Provider Audiologist | DX: Z00.00 Encounter for general adult medical examination without abnormal findings (principal) ==

== ENCOUNTER → 2019-12-28 09:40 | Outpatient (POV) | payer MEDICARE, OTHER, SELFPAY | PROVIDERS: Visit Provider Audiologist | DX: Z00.00 Encounter for general adult medical examination without abnormal findings (principal) ==

== ENCOUNTER → 2020-01-05 11:12 | Outpatient (CLI) | payer MEDICARE, OTHER, SELFPAY | PROVIDERS: PCP Internal Medicine Adolescent Medicine; Visit Provider Nurse Practitioner Family | DX: G47.33 Obstructive sleep apnea (adult) (pediatric) (principal); G47.34 Idiopathic sleep related nonobstructive alveolar hypoventilation; Z68.39 Body mass index [BMI] 39.0-39.9, adult | CPT/HCPCS: 94762 ==

== ENCOUNTER → 2020-01-11 09:05 | Outpatient (POV) | payer MEDICARE, OTHER, SELFPAY | PROVIDERS: Visit Provider Audiologist | DX: Z00.00 Encounter for general adult medical examination without abnormal findings (principal) ==

== ENCOUNTER → 2020-01-11 09:21 | Outpatient (CLI) | payer MEDICARE, OTHER, SELFPAY ==
[2020-01-11 09:37] LABS: ABG Base Excess -2.6 mmol/L (-2.4-2.3); ABG HCO3 21.7 mmhg (22.0-26.0); ABG Oxygen Saturation 95 % (90-100); ABG PCO2 33.8 mmhg (35.0-45.0); ABG PH 7.43 mmol/L (7.35-7.45); ABG PO2 73.9 mmhg (80-100); ABG TCO2 22.8 mmhg (23-27)
[2020-01-11 09:40] LABS: Allen's Test Acceptable; Oxygen 21% %; Source Right Radial
== END ==
PROVIDERS: PCP Internal Medicine Adolescent Medicine; Visit Provider Internal Medicine Pulmonary Disease
DX: I27.20 Pulmonary hypertension, unspecified (principal)
CPT/HCPCS: 82803

== ENCOUNTER → 2020-01-24 14:26 | Outpatient (CLI) | payer MEDICARE, OTHER, SELFPAY ==
[2020-01-24 15:25] VITALS: PULSE 74; PULSE 80
== END ==
PROVIDERS: PCP Internal Medicine Adolescent Medicine; Visit Provider Internal Medicine Pulmonary Disease
DX: J44.9 Chronic obstructive pulmonary disease, unspecified (principal)
CPT/HCPCS: 94060; 94618; 94640; 94726; 94729

== ENCOUNTER → 2020-02-05 13:32 | Outpatient (CLI) | payer MEDICARE, OTHER, SELFPAY | PROVIDERS: PCP Internal Medicine Adolescent Medicine; Visit Provider Specialist | DX: G47.33 Obstructive sleep apnea (adult) (pediatric) (principal); G47.34 Idiopathic sleep related nonobstructive alveolar hypoventilation; Z99.89 Dependence on other enabling machines and devices | CPT/HCPCS: 94762 ==

== ENCOUNTER → 2020-02-08 09:55 | Outpatient (POV) | payer MEDICARE, OTHER, SELFPAY | PROVIDERS: Visit Provider Audiologist | DX: Z00.00 Encounter for general adult medical examination without abnormal findings (principal) ==

== ENCOUNTER 2020-02-11 10:27 | Emergency (ER) | payer MEDICARE, OTHER, SELFPAY ==
[2020-02-11 10:28] VITALS: BP 125/50; PULSE 66; RESP 24; TEMP 36.6; O2SAT 92; BMI 39.4
--- NOTE | 2020-02-11 10:54 | XR_ITS ---
PROCEDURE: XR KNEE LT 3V Referring Doctor: Kareem Brown Patient Age:69Y CLINICAL INDICATION: PAIN, SWELLING knee pain swelling COMPARISON: CR XR KNEE LT 4V from 10/16/2019 FINDINGS: Left knee 3 view AP lateral and oblique nonweightbearing . No acute fracture nor dislocation evident. The patient has had a hemiarthroplasty of the medial compartment of the left knee. The components here appear stable and similar to the 10/16/2019exam exam with no no fracture or loosening evident.. Most evident on the oblique view today there is a subtle lucent area just beneath the medial tibial spine and just off the lateral margin of the prosthesis. This is of questionable and somewhat doubtful significance but but is noted as is it is a subtle change. Orthopedic follow-up suggested I would note on the lateral view there is a prominent ovoid density extending up into the suprapatellar bursa which likely does reflect a joint effusion although somewhat unusual appearing for such and. [place] that does not displace other structures more so The lateral compartment appears well maintained intact and stable. Stable flabella posterior aspect of knee I would also note the patient seems to have lost a significant decreased girth girth of the leg since October 15 on the AP view. In this projection the decreased girth is mainly is due to the early decreased amount of subcutaneous adipose. However the lateral view shows a similar size of the leg which is somewhat confusing. Thus clinical correlation required.. IMPRESSION: 1.. Appears to be a Large Joint Effusion at suprapatellar bursa 2...Hemiarthroplasty Medial Compartment. No fracture or loosening evident. Components evident appear stable since 10/16/2019. Otherwise note small small new area lucency in the proximal tibia-just beneath the medial tibial spine; and just lateral to the margin of the medial tibial plateau prosthesis.. May merely be a small subchondral cyst/degenerative cyst but noted 3. The AP view suggests significant decreased girth of the leg since 10/16/2019, suggesting interval weight loss-but this is not evident on the lateral view. Correlation required.. Dictated by: Cesar Jordan MD 02/11/2020 17:54 Cesar Jordan MD in [facility] 02/11/2020 17:54
--- NOTE | 2020-02-11 11:09 | HMH.EDGENADL ---
ED Disposition Clinical Impression: Hemarthrosis of knee Qualifiers: Laterality: left Qualified Code(s): M25.062 - Hemarthrosis, left knee Leukocytosis Qualifiers: Leukocytosis type: unspecified Qualified Code(s): D72.829 - Elevated white blood cell count, unspecified Disposition: Home, Self-Care Condition on Discharge: Good Additional Instructions: Continue current treatment of knee swelling. Call Dr. Hi tomorrow to arrange follow-up and to obtain luminary culture result. Call Dr. Hi if temperature greater than 100.4 degrees. Referrals: Maurilio Hi MD [Primary Care Provider] - - Critical Care Critical Care Time: No Attestation: On 02/11/20, the high probability of a clinically significant, sudden or life threatening deterioration of the following system(s) required my full and direct attention, intervention and personal management. The time I documented below is in addition to time spent performing reported procedures but includes the following listed in this critical care notation. Medical Decision Making - Medical Records Medical records reviewed: Yes: I reviewed the patient's medical records. MR Comment: Visit to Dr. Walter on 10/16/2019. Arthrocentesis was negative on culture, less than 10 WBCs, but gram-positive diplococci on Gram stain. White blood cell count was 20,000. - Win Inquiry Pt receiving controlled substance: No Vital Signs: 02/11/20 10:28 02/11/20 12:22 02/11/20 13:10 Temperature 98 F 98 F Temperature Source Oral Oral Pulse Rate 74 Pulse Rate [Radial] 66 63 Respiratory Rate 24 18 16 Blood Pressure 123/74 Blood Pressure [Right Arm] 125/50 L 110/52 L Blood Pressure Mean [Right Arm] 75 71 Blood Pressure Position Sitting Blood Pressure Position [Right Arm] Sitting Sitting 02 Sat by Pulse Oximetry 92 L 93 L Oxygen Delivery Method Room Air Room Air Room Air - Lab Data Lab results reviewed: Yes: I reviewed the patient's lab results. Lab Results 02/11/20 11:25: WBC 18.4 H, RBC 4.76, Hgb 16.7, Hct 45.7, MCV 96.1 H, MCH 35.0 H, MCHC 36.5 H, RDW 15.1, Plt Count 568 H, MPV 9.1, Neut % (Auto) 55.6, Lymph % (Auto) 33.9, Dubois % (Auto) 6.2, Eos % (Auto) 2.8, Baso % (Auto) 1.5, Neut # (Auto) 10.3 H, Lymph # (Auto) 6.3 H, Dubois # (Auto) 1.1 H, Eos # (Auto) 0.5 H, Baso # (Auto) 0.3 H, Total Counted 100, Neutrophils % (Manual) 50, Lymphocytes % (Manual) 45, Monocytes % (Manual) 3, Eosinophils % (Manual) 2, Platelet Estimate Moderate increase, RBC Morphology Normal 02/11/20 11:25: Sodium 141, Potassium 3.8, Chloride 101, Carbon Dioxide 31 H, Anion Gap 12.8, BUN 22 H, Creatinine 1.40 H, Estimated Creat Clear 85, Estimated GFR 51 L, Est GFR ( Amer) 61, Glucose 121 H, Calcium 9.9, Total Bilirubin 1.1, AST 29, ALT 25, Alkaline Phosphatase 107, Total Protein 8.2, Albumin 4.5, Globulin 3.7 H, Albumin/Globulin Ratio 1.2 02/11/20 12:00: Lactate 1.2 Result diagrams: 02/11/20 11:25 02/11/20 11:25 Orders (Tests/Meds): ED MEDICATIONS Discontinued Medications Generic Name Dose Route Start Last Admin Trade Name Marie PRN Reason Stop Dose Admin Lidocaine/Epinephrine 10 ml 02/11/20 11:26 02/11/20 11:34 Lidocaine 2% W/Epi 1:100,000 20ml Vial IJ 02/11/20 11:27 5 cc ONCE ONE Administration ORDERS Category Date Time Status Blood Culture Stat Micro 02/11/20 12:00 Received Body Fluid Cult & Gram Stain Stat Micro 02/11/20 11:50 Results - Physician Consults Physician Consulted: Dr. Hi Time: 12:20 Reason -: Pt condition Comment/Response: He states that arthrocentesis on Wednesday also yielded just a couple of cc of thick blood as did arthrocentesis here. He states that he will follow up the culture results and patient should call there tomorrow to his office to get results. I advised to call Dr. Hi if fever greater than 100.5. Discussed elevated white blood cell count on October 15 and today as well. He will follow-up. Medical Decision Matthew
[2020-02-11 11:35] LABS: Basophils # 0.3 K/mm3 (0-0.2); Basophils % 1.5 % (0.1-2.0); Chloride 101 mmol/L (98-107); Eosinophils # 0.5 K/mm3 (0.0-0.4); Eosinophils % 2.8 % (0.1-12.0); Hematocrit 45.7 % (42.0-52.0); Hemoglobin 16.7 g/dL (14.1-18.0); Lymphocytes # 6.3 K/mm3 (0.7-4.5); Lymphocytes % 33.9 % (10-50); Mean Corpuscular HGB Conc 36.5 g/dL (31.8-35.4); Mean Corpuscular Volume 96.1 fl (80-94); Mean Platelet Volume 9.1 fl (7.4-10.4); Monocytes # 1.1 K/mm3 (0.1-1.0); Monocytes % 6.2 % (1.7-9.3); Neutrophils # 10.3 K/mm3 (1.8-7.8); Neutrophils % 55.6 % (37.0-80.0); Platelet Count 568 K/mm3 (142-424); Red Blood Count 4.76 M/mm3 (4.60-6.20); Red Cell Distribution Width 15.1 % (11.5-17.5); Sodium 141 mmol/L (136-145); White Blood Count 18.4 K/mm3 (4.8-10.8)
[2020-02-11 11:37] LABS: Blood Urea Nitrogen 22 mg/dl (9-20); Creatinine Clearance Estimated 85 mL/min (50-200); Estimated Glomerular Filt Rate 51 ml/min (>60); GFR (African American) 61 ML/MIN (>60)
[2020-02-11 11:38] LABS: Alanine Aminotransferase 25 U/L (12-78); Albumin Level 4.5 g/dl (3.5-5.0); Albumin/Globulin Ratio 1.2 (1.1-1.8); Alkaline Phosphatase 107 U/L (38-126); Aspartate Amino Transferase 29 U/L (17-59); Bilirubin,Total 1.1 mg/dl (0.2-1.3); Calcium 9.9 mg/dl (8.4-10.2); Carbon Dioxide 31 mmol/L (22.0-30.0); Globulin 3.7 g/dL (1.3-3.2); Glucose 121 mg/dl (74-100); MANUAL DIFFERENTIAL MANUAL DIFFERENTIAL (MANUAL DIFF); Total Protein,Serum 8.2 g/dl (6.3-8.2)
[2020-02-11 11:41] LABS: Anion Gap 12.8 mEq/L (5-15); Potassium 3.8 mmoL/L (3.5-5.1)
[2020-02-11 11:45] LABS: Eosinophils % 2 % (0-3); Lymphocytes % 45 % (10-50); Monocytes % 3 % (2-9); Neutrophils % 50 % (42-76); Platelet Estimate Moderate Increase; RBC Morphology Normal; Total Cells Counted 100
[2020-02-11 12:22] VITALS: BP 110/52; PULSE 63; RESP 18; O2SAT 93
[2020-02-11 12:42] LABS: Lactic Acid 1.2 mmol/L (0.7-2.1)
[2020-02-11 13:10] VITALS: BP 123/74; PULSE 74; RESP 16; TEMP 36.6; O2SAT 98
== END 2020-02-11 13:14 | disposition home or self-care (01) ==
PROVIDERS: Emergency Provider Emergency Medicine; PCP Internal Medicine Adolescent Medicine
DX: M25.062 Hemarthrosis, left knee (principal); D72.829 Elevated white blood cell count, unspecified; I25.10 Atherosclerotic heart disease of native coronary artery without angina pectoris; F03.90 Unspecified dementia, unspecified severity, without behavioral disturbance, psychotic disturbance, mood disturbance, and anxiety; I10 Essential (primary) hypertension; E78.5 Hyperlipidemia, unspecified; F33.1 Major depressive disorder, recurrent, moderate; E03.9 Hypothyroidism, unspecified; Z87.891 Personal history of nicotine dependence
CPT/HCPCS: 20610; 73562; 80053; 83605; 85007; 85025; 87040; 87070; 87205; 99284

== ENCOUNTER → 2020-02-14 11:30 | Outpatient (CLI) | payer MEDICARE, OTHER, SELFPAY | PROVIDERS: PCP Internal Medicine Adolescent Medicine; Visit Provider Specialist | DX: G47.33 Obstructive sleep apnea (adult) (pediatric) (principal); G47.34 Idiopathic sleep related nonobstructive alveolar hypoventilation; Z99.89 Dependence on other enabling machines and devices | CPT/HCPCS: 94762 ==

== ENCOUNTER 2020-02-26 13:30 | Outpatient (CLI) | payer MEDICARE, OTHER, SELFPAY ==
[2020-02-26 14:22] LABS: PHA INR Fingerstick 1.2 (0.9-1.1)
== END 2020-02-26 14:24 | disposition home or self-care (01) ==
LOC: ACC 13:31
PROVIDERS: PCP Internal Medicine Adolescent Medicine; Visit Provider Internal Medicine Adolescent Medicine
DX: Z51.81 Encounter for therapeutic drug level monitoring (principal); Z79.01 Long term (current) use of anticoagulants
CPT/HCPCS: 85610; 99211; G0463

== ENCOUNTER 2020-03-04 10:33 | Outpatient (CLI) | payer MEDICARE, OTHER, SELFPAY ==
[2020-03-04 15:26] LABS: PHA INR Fingerstick 2.4 (0.9-1.1)
== END 2020-03-04 15:32 | disposition home or self-care (01) ==
LOC: ACC 10:35
PROVIDERS: PCP Internal Medicine Adolescent Medicine; Visit Provider Internal Medicine Adolescent Medicine
DX: Z79.01 Long term (current) use of anticoagulants (principal)
CPT/HCPCS: 85610; 99211; G0463

== ENCOUNTER → 2020-03-04 11:09 | Outpatient (CLI) | payer MEDICARE, OTHER, SELFPAY ==
[2020-03-04 11:36] LABS: Basophils # 0.2 K/mm3 (0-0.2); Basophils % 1.3 % (0.1-2.0); Eosinophils # 0.5 K/mm3 (0.0-0.4); Eosinophils % 2.8 % (0.1-12.0); Hematocrit 47.7 % (42.0-52.0); Hemoglobin 16.8 g/dL (14.1-18.0); Lymphocytes # 6.2 K/mm3 (0.7-4.5); Mean Corpuscular HGB Conc 35.1 g/dL (31.8-35.4); Mean Corpuscular Hemoglobin 34.2 pg (27.0-31.2); Mean Corpuscular Volume 97.3 fl (80-94); Mean Platelet Volume 9.7 fl (7.4-10.4); Monocytes # 1.3 K/mm3 (0.1-1.0); Monocytes % 7.4 % (1.7-9.3); Neutrophils # 8.7 K/mm3 (1.8-7.8); Neutrophils % 51.5 % (37.0-80.0); Platelet Count 496 K/mm3 (142-424); Red Cell Distribution Width 15.1 % (11.5-17.5); White Blood Count 16.8 K/mm3 (4.8-10.8)
[2020-03-04 11:41] LABS: MANUAL DIFFERENTIAL MANUAL DIFFERENTIAL (MANUAL DIFF)
[2020-03-04 12:10] LABS: Chloride 100 mmol/L (98-107); Potassium 5.1 mmoL/L (3.5-5.1); Sodium 141 mmol/L (136-145)
[2020-03-04 12:12] LABS: Blood Urea Nitrogen 26 mg/dl (9-20); Estimated Glomerular Filt Rate 47 ml/min (>60); GFR (African American) 56 ML/MIN (>60)
[2020-03-04 12:13] LABS: Alanine Aminotransferase 30 U/L (12-78); Albumin Level 4.9 g/dl (3.5-5.0); Albumin/Globulin Ratio 1.4 (1.1-1.8); Alkaline Phosphatase 119 U/L (38-126); Anion Gap 15.1 mEq/L (5-15); Aspartate Amino Transferase 32 U/L (17-59); Calcium 10.1 mg/dl (8.4-10.2); Carbon Dioxide 31 mmol/L (22.0-30.0); Globulin 3.6 g/dL (1.3-3.2); Glucose 101 mg/dl (74-100); Total Protein,Serum 8.5 g/dl (6.3-8.2)
[2020-03-04 12:43] LABS: Thyroid Stimulating Hormone 2.21 uIU/mL (0.465-4.68)
[2020-03-04 12:45] LABS: Prothrombin Time 23.7 seconds (9.4-11.8)
[2020-03-04 15:06] LABS: Eosinophils % 2 % (0-3); Lymphocytes % 17 % (10-50); Monocytes % 13 % (2-9); Neutrophils % 68 % (42-76); RBC Morphology Normal; Total Cells Counted 100
[2020-03-04 15:07] LABS: Platelet Estimate Slight Increase
== END ==
PROVIDERS: Visit Provider Internal Medicine Adolescent Medicine
DX: I35.0 Nonrheumatic aortic (valve) stenosis (principal); E03.9 Hypothyroidism, unspecified
CPT/HCPCS: 36415; 80053; 84443; 85007; 85025; 85610; 99211; G0463

== ENCOUNTER 2020-03-19 11:06 | Outpatient (CLI) | payer MEDICARE, OTHER, SELFPAY ==
[2020-03-19 12:01] LABS: PHA INR Fingerstick 2.3 (0.9-1.1)
== END 2020-03-19 12:03 | disposition home or self-care (01) ==
LOC: ACC 11:08
PROVIDERS: PCP Internal Medicine Adolescent Medicine; Visit Provider Internal Medicine Adolescent Medicine
DX: Z51.81 Encounter for therapeutic drug level monitoring (principal); Z79.01 Long term (current) use of anticoagulants
CPT/HCPCS: 85610; 99211; G0463

== ENCOUNTER 2020-04-04 10:00 | Outpatient (RCR) | payer MEDICARE, OTHER, SELFPAY | END 2020-04-04 10:05 | disposition home or self-care (01) | LOC: PT 10:00 | PROVIDERS: PCP Internal Medicine Adolescent Medicine; Visit Provider Orthopaedic Surgery | DX: M25.562 Pain in left knee (principal) | CPT/HCPCS: 97010; 97014; 97110; 97163; 97164; G0283 ==

== ENCOUNTER 2020-04-16 11:01 | Outpatient (CLI) | payer MEDICARE, OTHER, SELFPAY ==
[2020-04-16 13:28] LABS: PHA INR Fingerstick 1.8 (0.9-1.1)
== END 2020-04-16 15:20 | disposition home or self-care (01) ==
LOC: ACC 11:02
PROVIDERS: PCP Internal Medicine Adolescent Medicine; Visit Provider Internal Medicine Adolescent Medicine
DX: Z51.81 Encounter for therapeutic drug level monitoring (principal); Z79.01 Long term (current) use of anticoagulants
CPT/HCPCS: 85610; 99211; G0463

== ENCOUNTER 2020-05-03 10:11 | Outpatient (RCR) | payer MEDICARE, OTHER, SELFPAY | END 2020-06-06 08:10 | disposition home or self-care (01) | LOC: PT 10:11 | PROVIDERS: Visit Provider Internal Medicine Pulmonary Disease | DX: J44.9 Chronic obstructive pulmonary disease, unspecified (principal) | CPT/HCPCS: G0424 ==

== ENCOUNTER 2020-05-14 10:23 | Outpatient (CLI) | payer MEDICARE, OTHER, SELFPAY ==
[2020-05-14 16:34] LABS: PHA INR Fingerstick 1.9 (0.9-1.1)
== END 2020-05-14 16:35 | disposition home or self-care (01) ==
LOC: ACC 10:25
PROVIDERS: PCP Internal Medicine Adolescent Medicine; Visit Provider Internal Medicine Adolescent Medicine
DX: Z51.81 Encounter for therapeutic drug level monitoring (principal); Z79.01 Long term (current) use of anticoagulants
CPT/HCPCS: 85610; 99211; G0463

== ENCOUNTER → 2020-05-27 13:11 | Outpatient (CLI) | payer MEDICARE, OTHER, SELFPAY ==
[2020-05-27 13:40] VITALS: PULSE 60; PULSE 64
== END ==
PROVIDERS: PCP Internal Medicine Adolescent Medicine; Visit Provider Internal Medicine Pulmonary Disease
DX: R06.02 Shortness of breath (principal); R06.00 Dyspnea, unspecified; I27.20 Pulmonary hypertension, unspecified
CPT/HCPCS: 94060; 94618; 94640; 94727; 94729

== ENCOUNTER 2020-06-11 11:28 | Outpatient (CLI) | payer MEDICARE, OTHER, SELFPAY ==
[2020-06-11 13:17] LABS: PHA INR Fingerstick 1.7 (0.9-1.1)
== END 2020-06-11 13:29 | disposition home or self-care (01) ==
LOC: ACC 11:29
PROVIDERS: PCP Internal Medicine Adolescent Medicine; Visit Provider Internal Medicine Adolescent Medicine
DX: Z51.81 Encounter for therapeutic drug level monitoring (principal); Z79.01 Long term (current) use of anticoagulants
CPT/HCPCS: 85610; 99211; G0463

== ENCOUNTER 2020-06-18 10:00 | Outpatient (RCR) | payer MEDICARE, OTHER, SELFPAY | END 2020-10-02 14:47 | disposition home or self-care (01) | LOC: PT 10:00 | PROVIDERS: PCP Internal Medicine Adolescent Medicine; Visit Provider Orthopaedic Surgery | DX: M25.562 Pain in left knee | CPT/HCPCS: 97010; 97014; 97110; 97163; G0283 ==

== ENCOUNTER 2020-07-09 11:17 | Outpatient (CLI) | payer MEDICARE, OTHER, SELFPAY ==
[2020-07-09 16:07] LABS: PHA INR Fingerstick 1.5 (0.9-1.1)
== END 2020-07-09 16:10 | disposition home or self-care (01) ==
LOC: ACC 11:18
PROVIDERS: PCP Internal Medicine Adolescent Medicine; Visit Provider Internal Medicine Adolescent Medicine
DX: Z51.81 Encounter for therapeutic drug level monitoring (principal); Z79.01 Long term (current) use of anticoagulants
CPT/HCPCS: 85610; 99211; G0463

== ENCOUNTER 2020-07-30 10:49 | Outpatient (CLI) | payer MEDICARE, OTHER, SELFPAY ==
[2020-07-30 11:23] LABS: PHA INR Fingerstick 2.5 (0.9-1.1)
== END 2020-07-30 11:24 | disposition home or self-care (01) ==
LOC: ACC 10:50
PROVIDERS: PCP Internal Medicine Adolescent Medicine; Visit Provider Internal Medicine Adolescent Medicine
DX: Z51.81 Encounter for therapeutic drug level monitoring (principal); Z79.01 Long term (current) use of anticoagulants
CPT/HCPCS: 85610; 99211; G0463

== ENCOUNTER 2020-08-27 10:35 | Outpatient (CLI) | payer MEDICARE, OTHER, SELFPAY ==
[2020-08-27 11:18] LABS: Basophils # 0.2 K/mm3 (0-0.2); Basophils % 1.5 % (0.1-2.0); Eosinophils # 0.5 K/mm3 (0.0-0.4); Eosinophils % 3.6 % (0.1-12.0); Hematocrit 45.8 % (42.0-52.0); Hemoglobin 15.9 g/dL (14.1-18.0); Lymphocytes # 4.7 K/mm3 (0.7-4.5); Lymphocytes % 36.5 % (10-50); Mean Corpuscular HGB Conc 34.8 g/dL (31.8-35.4); Mean Corpuscular Hemoglobin 33.4 pg (27.0-31.2); Mean Corpuscular Volume 96.1 fl (80-94); Mean Platelet Volume 9.9 fl (7.4-10.4); Monocytes # 0.9 K/mm3 (0.1-1.0); Monocytes % 7.4 % (1.7-9.3); Neutrophils # 6.5 K/mm3 (1.8-7.8); Platelet Count 429 K/mm3 (142-424); Red Blood Count 4.76 M/mm3 (4.60-6.20); Red Cell Distribution Width 14.4 % (11.5-17.5); White Blood Count 12.8 K/mm3 (4.8-10.8)
[2020-08-27 11:24] LABS: Prothrombin Time 13.2 seconds (10.1-12.5)
[2020-08-27 11:26] LABS: INR 1.13 (0.9-1.1)
[2020-08-27 11:40] LABS: PHA INR Fingerstick 1.3 (0.9-1.1)
== END 2020-08-27 11:44 | disposition home or self-care (01) ==
PROVIDERS: Internal Medicine Medical Oncology; PCP Internal Medicine Adolescent Medicine; Visit Provider Internal Medicine Adolescent Medicine
DX: Z51.81 Encounter for therapeutic drug level monitoring (principal); Z79.01 Long term (current) use of anticoagulants
CPT/HCPCS: 36415; 85025; 85610; 99211; G0463

== ENCOUNTER 2020-09-10 10:36 | Outpatient (CLI) | payer MEDICARE, OTHER, SELFPAY ==
[2020-09-10 14:49] LABS: PHA INR Fingerstick 2.2 (0.9-1.1)
== END 2020-09-10 15:09 | disposition home or self-care (01) ==
LOC: ACC 10:38
PROVIDERS: PCP Internal Medicine Adolescent Medicine; Visit Provider Internal Medicine Adolescent Medicine
DX: Z51.81 Encounter for therapeutic drug level monitoring (principal); Z79.01 Long term (current) use of anticoagulants
CPT/HCPCS: 85610; 99211; G0463

== ENCOUNTER 2020-10-15 11:02 | Outpatient (CLI) | payer MEDICARE, OTHER, SELFPAY | END 2020-10-15 16:46 | disposition home or self-care (01) | LOC: ACC 11:03 | PROVIDERS: PCP Internal Medicine Adolescent Medicine; Visit Provider Internal Medicine Adolescent Medicine | DX: Z51.81 Encounter for therapeutic drug level monitoring (principal); Z79.01 Long term (current) use of anticoagulants | CPT/HCPCS: 85610; 99211; G0463 ==

== ENCOUNTER 2020-11-26 10:47 | Outpatient (CLI) | payer MEDICARE, OTHER, SELFPAY ==
[2020-11-26 16:06] LABS: PHA INR Fingerstick 1.7 (0.9-1.1)
== END 2020-11-26 16:18 | disposition home or self-care (01) ==
LOC: ACC 10:49
PROVIDERS: PCP Internal Medicine Adolescent Medicine; Visit Provider Internal Medicine Adolescent Medicine
DX: Z51.81 Encounter for therapeutic drug level monitoring (principal); Z79.01 Long term (current) use of anticoagulants
CPT/HCPCS: 85610; 99211; G0463

== ENCOUNTER → 2020-12-26 11:51 | Outpatient (CLI) | payer MEDICARE, OTHER, SELFPAY ==
[2020-12-26 12:06] LABS: Basophils # 0.2 K/mm3 (0-0.2); Basophils % 1.4 % (0.1-2.0); Eosinophils # 0.6 K/mm3 (0.0-0.4); Eosinophils % 4.4 % (0.1-12.0); Hematocrit 46.6 % (42.0-52.0); Hemoglobin 16.4 g/dL (14.1-18.0); Lymphocytes # 5.5 K/mm3 (0.7-4.5); Lymphocytes % 38.4 % (10-50); Mean Corpuscular HGB Conc 35.3 g/dL (31.8-35.4); Mean Corpuscular Hemoglobin 34.6 pg (27.0-31.2); Mean Platelet Volume 10.5 fl (7.4-10.4); Monocytes % 7.3 % (1.7-9.3); Neutrophils # 6.9 K/mm3 (1.8-7.8); Neutrophils % 48.5 % (37.0-80.0); Platelet Count 463 K/mm3 (142-424); Red Blood Count 4.75 M/mm3 (4.60-6.20); Red Cell Distribution Width 15.1 % (11.5-17.5); White Blood Count 14.3 K/mm3 (4.8-10.8)
[2020-12-26 12:50] LABS: Chloride 101 mmol/L (98-107); Sodium 140 mmol/L (136-145)
[2020-12-26 12:51] LABS: Potassium 4.7 mmoL/L (3.5-5.1)
[2020-12-26 12:53] LABS: Alanine Aminotransferase 17 U/L (12-78); Albumin Level 4.2 g/dl (3.5-5.0); Albumin/Globulin Ratio 1.5 (1.1-1.8); Alkaline Phosphatase 103 U/L (38-126); Anion Gap 11.7 mEq/L (5-15); Aspartate Amino Transferase 25 U/L (17-59); Bilirubin,Total 0.9 mg/dl (0.2-1.3); Blood Urea Nitrogen 18 mg/dl (9-20); Carbon Dioxide 32 mmol/L (22.0-30.0); Cholesterol 144 mg/dl (140-200); Estimated Glomerular Filt Rate 67 ml/min (>60); GFR (African American) 81 ML/MIN (>60); Globulin 2.8 g/dL (1.3-3.2); Triglycerides 133 mg/dl (30-150); VLDL Cholesterol 27 mg/dL (0-40)
[2020-12-26 12:54] LABS: Calcium 9.4 mg/dl (8.4-10.2); Chol/HDL Ratio 3.6 (1-3.5); Glucose 90 mg/dl (74-100); HDL Cholesterol 40 mg/dl (40-60)
[2020-12-26 13:05] LABS: Direct LDL Cholesterol 77.73 mg/dL (100-129)
== END ==
PROVIDERS: Visit Provider Internal Medicine Adolescent Medicine
DX: I50.30 Unspecified diastolic (congestive) heart failure (principal); I11.0 Hypertensive heart disease with heart failure; G47.33 Obstructive sleep apnea (adult) (pediatric)
CPT/HCPCS: 36415; 80053; 80061; 84443; 85025

== ENCOUNTER 2020-12-31 11:04 | Outpatient (CLI) | payer MEDICARE, OTHER, SELFPAY ==
[2020-12-31 15:54] LABS: PHA INR Fingerstick 2.5 (0.9-1.1)
== END 2020-12-31 16:06 | disposition home or self-care (01) ==
LOC: ACC 11:05
PROVIDERS: PCP Internal Medicine Adolescent Medicine; Visit Provider Internal Medicine Adolescent Medicine
DX: Z51.81 Encounter for therapeutic drug level monitoring (principal); Z79.01 Long term (current) use of anticoagulants
CPT/HCPCS: 85610; 99211; G0463

== ENCOUNTER 2021-01-01 10:00 | Outpatient (RCR) | payer MEDICARE, OTHER, SELFPAY | END 2021-01-01 10:05 | disposition home or self-care (01) | LOC: PT 10:00 | PROVIDERS: Visit Provider Orthopaedic Surgery | DX: M25.562 Pain in left knee (principal) | CPT/HCPCS: 97014; 97016; 97033; 97110; 97163; G0283 ==

== ENCOUNTER 2021-02-11 10:35 | Outpatient (CLI) | payer MEDICARE, OTHER, SELFPAY ==
[2021-02-11 11:18] LABS: PHA INR Fingerstick 1.7 (0.9-1.1)
== END 2021-02-11 12:01 | disposition home or self-care (01) ==
LOC: ACC 10:36
PROVIDERS: PCP Internal Medicine Adolescent Medicine; Visit Provider Internal Medicine Adolescent Medicine
DX: Z51.81 Encounter for therapeutic drug level monitoring (principal); Z79.01 Long term (current) use of anticoagulants
CPT/HCPCS: 85610; 99211; G0463

== ENCOUNTER → 2021-02-25 10:56 | Outpatient (CLI) | payer MEDICARE, OTHER, SELFPAY ==
[2021-02-25 11:48] LABS: Anion Gap 10.9 mEq/L (5-15); Blood Urea Nitrogen 23 mg/dl (9-20); Calcium 9.9 mg/dl (8.4-10.2); Carbon Dioxide 32 mmol/L (22.0-30.0); Chloride 101 mmol/L (98-107); Estimated Glomerular Filt Rate 50 ml/min (>60); GFR (African American) 61 ML/MIN (>60); Glucose 95 mg/dl (74-100); Potassium 4.9 mmoL/L (3.5-5.1); Sodium 139 mmol/L (136-145)
[2021-02-25 11:59] LABS: NT Pro Brain Natriuretic Pep. 356 pg/mL (0-125)
== END ==
PROVIDERS: Visit Provider Urology
DX: G47.33 Obstructive sleep apnea (adult) (pediatric) (principal); G47.34 Idiopathic sleep related nonobstructive alveolar hypoventilation; I25.10 Atherosclerotic heart disease of native coronary artery without angina pectoris; I27.20 Pulmonary hypertension, unspecified; I50.9 Heart failure, unspecified; J44.9 Chronic obstructive pulmonary disease, unspecified; R06.02 Shortness of breath; Z86.718 Personal history of other venous thrombosis and embolism
CPT/HCPCS: 36415; 80048; 83880

== ENCOUNTER → 2021-03-03 14:08 | Outpatient (CLI) | payer MEDICARE, OTHER, SELFPAY ==
[2021-03-03 16:44] LABS: Blood Urea Nitrogen 19 mg/dl (9-20); Calcium 9.8 mg/dl (8.4-10.2); Carbon Dioxide 30 mmol/L (22.0-30.0); Chloride 99 mmol/L (98-107); Estimated Glomerular Filt Rate 55 ml/min (>60); GFR (African American) 66 ML/MIN (>60); Glucose 87 mg/dl (74-100); Sodium 138 mmol/L (136-145)
== END ==
PROVIDERS: Visit Provider Urology
DX: E78.5 Hyperlipidemia, unspecified (principal); I25.10 Atherosclerotic heart disease of native coronary artery without angina pectoris; I27.20 Pulmonary hypertension, unspecified; I35.0 Nonrheumatic aortic (valve) stenosis; I50.9 Heart failure, unspecified; I65.29 Occlusion and stenosis of unspecified carotid artery; R06.00 Dyspnea, unspecified; Z86.711 Personal history of pulmonary embolism; Z86.718 Personal history of other venous thrombosis and embolism; I11.0 Hypertensive heart disease with heart failure
CPT/HCPCS: 36415; 80048

== ENCOUNTER → 2021-03-07 13:54 | Outpatient (CLI) | payer MEDICARE, OTHER, SELFPAY ==
--- NOTE | 2021-03-07 13:55 | CA_ITS ---
APPROVED REPORT Occupational Therapy Aides Teacher: Amanda Cavanaugh RVT Laterality: Bilateral Study Quality: Adequate Indications: alon Risk Factors Hypertension: Hyperlipidemia Doppler Spectral Velocity Analysis ECA (R) 144.40/8.60 cm/s ECA (L) 163.00/9.70 cm/s dICA (R) 55.60/9.60 cm/s dICA (L) 87.70/12.50 cm/s Jen (R) 73.80/10.70 cm/s Jen (L) 82.20/8.40 cm/s pICA (R) 132.60/13.90 cm/s pICA (L) 98.90/11.10 cm/s dCCA (R) 103.70/15.00 cm/s dCCA (L) 199.20/13.90 cm/s pCCA (R) 109.10/9.60 cm/s pCCA (L) 214.50/19.50 cm/s Vert (R) 43.40/6.00 cm/s Vert (L) 34.80/9.70 cm/s ICA/CCA 1.28 ICA/CCA 0.50 Findings Study suggests 20-49% stenosis of the right internal cartoid artery. Study suggests 20-49% stenosis of the left internal cartoid artery. Antegrade flow seen bilateral vertebral arteries. Conclusion Study suggests 20-49% stenosis of the right internal cartoid artery. Study suggests 20-49% stenosis of the left internal cartoid artery. Antegrade flow seen bilateral vertebral arteries. Electronically signed by : Kermit Conway MD 03/07/2021 16:59:00
--- NOTE | 2021-03-07 13:55 | CA_ITS ---
APPROVED REPORT EXAM: Comprehensive 2D, Doppler, and color-flow Echocardiogram Supervisor [place] Repair: Petrona Ravi CRT Ht: 5 ft 8 in Wt: 251lbs BSA: 2.25 BP: 124/84 mmHg Indications: COPD, Shortness of Breath, Obesity, CAD, Hyperlipidemia, Hypertension/HDD, ISAAC, CPAP, HOME O2, 2D Dimensions LVOT 2.13 cm (M/F) 1.5-2.5 LA Volume 61.70 mL LA Volume Index 27.40 mL/m2 (M/F) 16-34 M-Mode Dimensions RVDd 2.86 cm (0.9-2.6) LA Diam 5.16 cm (1.9-4.0) LVDd 5.57 cm (3.5-5.7) Ao Diam 3.91 cm (2.0-3.7) LVDs 3.26 cm (3.5-5.7) IVSd 1.99 cm (0.6-1.1) PWd 1.33 cm (0.6-1.1) EF (Teich) 71.80% FS 41.50% EDV (Teich) 151.80 mL TAPSE 2.53 (<1.7) ESV (Teich) 42.80 mL LV Diastology E Decel Time 233.00 (160-240 msec) E/A Ratio 0.69 MED E' 4.70 (< 7 cm/sec) MED A' 10.60 cm/s E'/MED E' Ratio 12.96 (>14) LAT E' 5.80 (<10 cm/sec) LAT A' 10.90 cm/s E/LAT E' Ratio 10.50 (>14) Aortic Valve LVOT Max 142.00 (70-110 cm/s) LVOT VTI 35.33 cm AoV Peak Srinivas. 333.00 (50-130 cm/s) AI PHT 455.00 ms AO Peak GR. 44.30 mmHg AO Mean GR. 28.70 (<5 mmHg) AO VTI 68.51 (18-25 cm) GUIDO (VTI) 1.84 (2.5-4.5 cm2) Mitral Valve MV E Max Srinivas. 61.00 (40-130 cm/s) MV A Velocity 88.00 (40-130 cm/s) E/A Ratio 0.69 MV Decel. Time 233.00 (160-240 ms) MV PHT 68.00 ms Pulmonary Valve PV Peak Velocity 83.00 (50-150 cm/s) Tricuspid Valve TR P. Velocity 232.00 cm/s RAP Estimate 10.00 mmHg RVSP 31.50 mmHg Left Ventricle Left atrium is mildly enlarged, left ventricle is normal size, mild concentric left ventricular hypertrophy, visually estimated ejection fraction 55% with no regional wall motion abnormality, grade 1 diastolic dysfunction seen without tissue Doppler evidence of raise left atrial pressure. Right Ventricle Right atrium and right ventricle are mildly enlarged with normal contractility. Aortic Valve Aortic valve is thickened and calcified, mean gradient across aortic valve is 28 mmHg which represents moderate aortic stenosis, there is mild aortic insufficiency, aortic valve area is not accurately calculated in the study. Mitral Valve Mitral valve leaflets are minimally thickened, there is mild mitral regurgitation. Tricuspid Valve Tricuspid valve grossly normal, there is mild tricuspid regurgitation, tricuspid regurgitation jet velocity is inadequate for calculation of the right ventricular systolic pressure. Pulmonic Valve Pulmonic valve is poorly visualized. Great Vessels Aortic root is normal size. Inferior vena cava is normal size with normal inspiratory collapse. Pericardium No significant pericardial effusion noted. Conclusion 1. Mildly enlarged left atrium, normal left ventricular size, mild concentric left ventricular hypertrophy, visually estimated ejection fraction 55% with no regional wall motion abnormality, grade 1 diastolic dysfunction seen without tissue Doppler evidence of raise left atrial pressure. 2. Thickened and calcified aortic valve with at least moderate aortic stenosis, there is mild aortic insufficiency, the aortic valve area is not accurately calculated in the study. 3. Mild mitral and tricuspid regurgitation. 4. No significant pericardial effusion noted 5. Inferior vena cava normal size with normal inspiratory collapse. Electronically signed by : John Wild MD 03/10/2021 20:22:08
== END ==
PROVIDERS: PCP Internal Medicine Adolescent Medicine; Visit Provider Urology
DX: G47.33 Obstructive sleep apnea (adult) (pediatric) (principal); G47.34 Idiopathic sleep related nonobstructive alveolar hypoventilation; I25.10 Atherosclerotic heart disease of native coronary artery without angina pectoris; I27.20 Pulmonary hypertension, unspecified; I50.9 Heart failure, unspecified; J44.9 Chronic obstructive pulmonary disease, unspecified; Z86.718 Personal history of other venous thrombosis and embolism; I65.23 Occlusion and stenosis of bilateral carotid arteries
CPT/HCPCS: 93306; 93880

== ENCOUNTER 2021-03-25 10:29 | Outpatient (CLI) | payer MEDICARE, OTHER, SELFPAY ==
[2021-03-25 14:35] LABS: PHA INR Fingerstick 1.7 (0.9-1.1)
== END 2021-03-25 15:02 | disposition home or self-care (01) ==
LOC: ACC 10:31
PROVIDERS: PCP Internal Medicine Adolescent Medicine; Visit Provider Internal Medicine Adolescent Medicine
DX: Z51.81 Encounter for therapeutic drug level monitoring (principal); Z79.01 Long term (current) use of anticoagulants
CPT/HCPCS: 85610; 99211; G0463

== ENCOUNTER 2021-04-16 14:00 | Outpatient (RCR) | payer MEDICARE, OTHER, SELFPAY | END 2021-04-16 14:05 | disposition home or self-care (01) | LOC: PT 14:00 | PROVIDERS: PCP Internal Medicine Adolescent Medicine; Visit Provider Physician Assistant | DX: M25.562 Pain in left knee (principal) | CPT/HCPCS: 97010; 97014; 97110; 97163; G0283 ==

== ENCOUNTER 2021-04-28 10:32 | Outpatient (CLI) | payer MEDICARE, OTHER, SELFPAY ==
[2021-04-28 11:08] LABS: PHA INR Fingerstick 1.6 (0.9-1.1)
== END 2021-04-28 11:35 | disposition home or self-care (01) ==
LOC: ACC 10:33
PROVIDERS: PCP Internal Medicine Adolescent Medicine; Visit Provider Internal Medicine Adolescent Medicine
DX: Z51.81 Encounter for therapeutic drug level monitoring (principal); Z79.01 Long term (current) use of anticoagulants
CPT/HCPCS: 85610; 99211; G0463

== ENCOUNTER 2021-05-19 10:42 | Outpatient (CLI) | payer MEDICARE, OTHER, SELFPAY ==
[2021-05-19 11:45] LABS: PHA INR Fingerstick 2.5 (0.9-1.1)
== END 2021-05-19 12:03 | disposition home or self-care (01) ==
LOC: ACC 10:43
PROVIDERS: PCP Internal Medicine Adolescent Medicine; Visit Provider Internal Medicine Adolescent Medicine
DX: Z51.81 Encounter for therapeutic drug level monitoring (principal); Z79.01 Long term (current) use of anticoagulants
CPT/HCPCS: 85610; 99211; G0463

== ENCOUNTER → 2021-05-27 10:57 | Outpatient (CLI) | payer MEDICARE, OTHER, SELFPAY | PROVIDERS: PCP Internal Medicine Adolescent Medicine; Visit Provider Physician Assistant | DX: E78.5 Hyperlipidemia, unspecified (principal); G47.33 Obstructive sleep apnea (adult) (pediatric); I25.10 Atherosclerotic heart disease of native coronary artery without angina pectoris; I27.20 Pulmonary hypertension, unspecified; I35.0 Nonrheumatic aortic (valve) stenosis; I50.9 Heart failure, unspecified; R06.02 Shortness of breath; R94.31 Abnormal electrocardiogram [ECG] [EKG]; Z86.718 Personal history of other venous thrombosis and embolism; Z99.89 Dependence on other enabling machines and devices; I11.0 Hypertensive heart disease with heart failure | CPT/HCPCS: 93306 ==

== ENCOUNTER → 2021-05-30 08:42 | Outpatient (CLI) | payer MEDICARE, OTHER, SELFPAY ==
[2021-05-30 10:00] LABS: Alanine Aminotransferase 22 U/L (12-78); Albumin Level 4.2 g/dl (3.5-5.0); Alkaline Phosphatase 82 U/L (38-126); Anion Gap 9.9 mEq/L (5-15); Aspartate Amino Transferase 23 U/L (17-59); Bilirubin,Direct 0.1 mg/dl (0.0-0.4); Bilirubin,Total 1.1 mg/dl (0.2-1.3); Blood Urea Nitrogen 21 mg/dl (9-20); Calcium 9.1 mg/dl (8.4-10.2); Carbon Dioxide 29 mmol/L (22.0-30.0); Chloride 102 mmol/L (98-107); Chol/HDL Ratio 4.4 (1-3.5); Cholesterol 144 mg/dl (140-200); Estimated Glomerular Filt Rate 55 ml/min (>60); GFR (African American) 66 ML/MIN (>60); Glucose 104 mg/dl (74-100); HDL Cholesterol 33 mg/dl (40-60); Potassium 4.9 mmoL/L (3.5-5.1); Sodium 136 mmol/L (136-145); Total Protein,Serum 6.9 g/dl (6.3-8.2); Triglycerides 132 mg/dl (30-150); VLDL Cholesterol 26 mg/dL (0-40)
[2021-05-30 10:11] LABS: Direct LDL Cholesterol 79.29 mg/dL (100-129)
== END ==
PROVIDERS: Visit Provider Physician Assistant
DX: E78.5 Hyperlipidemia, unspecified (principal); R06.00 Dyspnea, unspecified; I65.29 Occlusion and stenosis of unspecified carotid artery
CPT/HCPCS: 36415; 80048; 80061; 80076

== ENCOUNTER 2021-06-16 09:58 | Outpatient (CLI) | payer MEDICARE, OTHER, SELFPAY ==
[2021-06-16 13:43] LABS: PHA INR Fingerstick 2.6 (0.9-1.1)
== END 2021-06-16 13:45 | disposition home or self-care (01) ==
LOC: ACC 09:59
PROVIDERS: PCP Internal Medicine Adolescent Medicine; Visit Provider Internal Medicine Adolescent Medicine
DX: Z51.81 Encounter for therapeutic drug level monitoring (principal); Z79.01 Long term (current) use of anticoagulants
CPT/HCPCS: 85610; 99211; G0463

== ENCOUNTER → 2021-07-17 14:52 | Outpatient (CLI) | payer MEDICARE, OTHER, SELFPAY | PROVIDERS: PCP Internal Medicine Adolescent Medicine; Visit Provider Internal Medicine Adolescent Medicine | DX: Z51.81 Encounter for therapeutic drug level monitoring (principal); Z79.01 Long term (current) use of anticoagulants ==

== ENCOUNTER 2021-07-28 09:30 | Outpatient (CLI) | payer MEDICARE, OTHER, SELFPAY | END 2021-07-28 09:50 | disposition home or self-care (01) | LOC: ACC 09:32 | PROVIDERS: PCP Internal Medicine Adolescent Medicine; Visit Provider Internal Medicine Adolescent Medicine | DX: Z51.81 Encounter for therapeutic drug level monitoring (principal); Z79.01 Long term (current) use of anticoagulants | CPT/HCPCS: 85610; 99211; G0463 ==

== ENCOUNTER 2021-08-25 10:01 | Outpatient (CLI) | payer MEDICARE, OTHER, SELFPAY ==
[2021-08-25 13:58] LABS: PHA INR Fingerstick 2.6 (0.9-1.1)
== END 2021-08-25 14:42 | disposition home or self-care (01) ==
LOC: ACC 10:02
PROVIDERS: PCP Internal Medicine Adolescent Medicine; Visit Provider Internal Medicine Adolescent Medicine
DX: Z51.81 Encounter for therapeutic drug level monitoring (principal); Z79.01 Long term (current) use of anticoagulants
CPT/HCPCS: 85610; 99211; G0463

== ENCOUNTER → 2021-09-03 07:16 | Outpatient (CLI) | payer MEDICARE, OTHER, SELFPAY ==
--- NOTE | 2021-09-03 | CA_ITS ---
APPROVED REPORT Exam: Pharmacologic Technologist: Connie Mueller Ht: 5 ft 8 in Wt: 270 lbs BSA: 2.32 m2 HR: 51 bpm BP: 118/68 mmHg Medical History Medications: Amlodipine,,,,, Levothyroxine,,,,, Warfarin,,,,, Pantoprazole,,,,, Atorvastatin,,,,, Citalopram,,,,, FOLIC ACID,,,,, Albuterol,,,,, Vit C,,,,, LoraTADINE,,,,, BisOPROLOL,,,,, MeMANTINE,,,,, Stress Test Details Test: LEXISCAN HR Resting HR: 52 bpm Max Heart Rate (APMHR): 152.039019 bpm Max HR Achieved: 80 bpm Target HR (85% APMHR): 129.370044 bpm % of APMHR: 52.63 Recovery HR: 62 bpm BP Resting BP: 118.0/68.0 mmHg Max BP: 151.0/71.0 mmHg Recovery BP: 127.0/60.0 mmHg ECG Resting ECG: Sinus bradycardia PVCs, First degree AV block, NS T wave abnormalities inferiorly and laterally, slow R wave progression. Clinical Exercise duration: 04:04 min Highest Stage Achieved: Exercise capacity: 1.0 METs Stress ECG Conclusion Symptoms: None Arrhythmias/Ectopy: Occassional isolated PVC ST-T Changes: No significant changes. Conclusion: Unremarkable Lexiscan stress. Myoview images reported separately. Electronically signed by : John Wild MD 09/03/2021 17:06:07
--- NOTE | 2021-09-03 07:17 | NM_ITS ---
APPROVED REPORT Exam: Nuclear Stress Test Indication: SOB, Abnormal EKG, High cholesterol, Family history, CHF Patient Location: Outpatient Stress Tech: Connie Mueller PR Tech:Caterina Raymundo, ARRT, RT (R)(N) Ht: 5 ft 8 in Wt: 255 lbs HR: 52 bpm BP: 118/68 mmHg BSA: 2.27 m2 TID: 1.43 BMI: 38.7 History: SOB, Abnormal EKG, High cholesterol, Family history, CHF Procedure: Patient received a 0.4 mg of intravenous Lexiscan, resting heart rate 52 bpm, resting blood pressure 118/68 mmHg, with Lexiscan maximum heart rate achived was 80 bpm which is Less than 85 % of the maximum predicted heart rate and blood pressure was 151/71 mmHg. With Lexiscan, patient denied any complaint of chest pain. Electrocardiogram Resting electrocardiogram showed sinus rhythm right ventricular conduction delay, with Lexiscan there is less than 1.[address] segment depression noted from the baseline EKG. The EKG portion of the Lexiscan is nondiagnostic. Cardiac Stress and Resting SPECT Images: Cardiac Stress and Resting SPECT images were obtained using technetium 99m Myoview 29.6 mCi stress and 9.99 mCi at rest. Patient too SOB to do prone images. Gated SPECT for analysis of segmental wall motion and calculation of the ejection fraction also done. Cardiac stress and resting SPECT images show small area of fixed defect in the inferior wall consistent with area of transmural myocardial scarring, no significant reversible ischemia seen, however there is transient ischemic dilatation of the left ventricle seen, raising the concerns for presence of multivessel coronary artery disease. Computer generated ejection fraction is 51% with mild inferior wall hypokinesis. Right ventricle is mildly enlarged with normal contractility. Conclusion: 1. The EKG portion of the Lexiscan is nondiagnostic. 2. Scintigraphic evidence of small area of transmural myocardial scarring involving the inferior wall, there is transient ischemic dilatation of the left ventricle seen, raising the concerns for presence of multivessel coronary artery disease. Computer derived ejection fraction is 51% with segmental wall motion abnormality described above, right ventricle is mildly enlarged with normal contractility. 3. Abnormal Lexiscan Myoview study. Electronically signed by : John Wild MD 09/03/2021 17:10:03
--- NOTE | 2021-09-03 07:24 | CA_ITS ---
APPROVED REPORT EXAM: Comprehensive 2D, Doppler, and color-flow Echocardiogram Scraper Tender: Amanda Cavanaugh RVT Ht: 5 ft 8 in Wt: 270lbs BSA: 2.32 BP: 106/63 mmHg Indications: SOA,PHTN,MOD ,ABN EKG,CHF,ISAAC,CAD,HOME 02,HTN,COPD,EX SMOKER,HLD TDS-BODY HABITUS 2D Dimensions LVOT 2.62 cm (M/F) 1.5-2.5 LA Volume 95.60 mL LA Volume Index 41.20 mL/m2 (M/F) 16-34 M-Mode Dimensions RVDd 2.19 cm (0.9-2.6) LA Diam 5.76 cm (1.9-4.0) LVDd 7.73 cm (3.5-5.7) Ao Diam 3.60 cm (2.0-3.7) LVDs 4.91 cm (3.5-5.7) IVSd 0.73 cm (0.6-1.1) PWd 1.04 cm (0.6-1.1) EF (Teich) 64.50% FS 36.50% EDV (Teich) 319.20 mL TAPSE 2.64 (<1.7) ESV (Teich) 113.40 mL LV Diastology E Decel Time 223.00 (160-240 msec) E/A Ratio 1.0 MED E' 5.60 (< 7 cm/sec) E'/MED E' Ratio 11.71 (>14) LAT E' 7.80 (<10 cm/sec) E/LAT E' Ratio 8.41 (>14) Aortic Valve LVOT Max 95.00 (70-110 cm/s) LVOT VTI 23.33 cm AoV Peak Srinivas. 314.00 (50-130 cm/s) AI PHT 2095.00 ms AO Peak GR. 39.40 mmHg AO Mean GR. 22.30 (<5 mmHg) AO VTI 75.46 (18-25 cm) GUIDO (VTI) 1.67 (2.5-4.5 cm2) Mitral Valve MV E Max Srinivas. 66.00 (40-130 cm/s) MV A Velocity 65.00 (40-130 cm/s) E/A Ratio 1.01 MV Decel. Time 223.00 (160-240 ms) MV PHT 65.00 ms Pulmonary Valve PV Peak Velocity 85.00 (50-150 cm/s) Tricuspid Valve TR P. Velocity 192.00 cm/s RAP Estimate 10.00 mmHg RVSP 24.80 mmHg Left Ventricle Left atrium is mildly enlarged, left ventricle normal size, mild concentric left ventricular hypertrophy, estimated ejection fraction 55% with no regional wall motion abnormality, grade 1 diastolic dysfunction seen without tissue Doppler evidence of raise left atrial pressure. Right Ventricle Right atrium and right ventricle are qualitatively mildly enlarged with normal contractility. Aortic Valve Aortic valve is thickened and calcified with restriction to leaflet mobility, the mean gradient across aortic valve is 20 mmHg in this study, valve area is calculated to be at 1.6 cm represents mild aortic stenosis, morphologically there is at least moderate aortic stenosis, there is mild aortic insufficiency. Mitral Valve Mitral valve leaflets are minimally thickened, there is mild mitral regurgitation. Tricuspid Valve Tricuspid valve grossly normal, there is mild tricuspid regurgitation, tricuspid rotation jet velocity is inadequate for calculation of the right ventricular systolic pressure. Pulmonic Valve Pulmonic valve is poorly visualized. Great Vessels Aortic root is normal size. Inferior vena cava is poorly visualized. Pericardium No significant pericardial effusion noted. Conclusion 1. Mild biatrial enlargement, normal left ventricular size, mild concentric left ventricular hypertrophy, estimated ejection fraction 55% with no regional wall motion abnormality, grade 1 diastolic dysfunction seen without tissue Doppler evidence of raise left atrial pressure. 2. Mildly enlarged right ventricle with normal Contractility. 3. Thickened and calcified aortic valve mean gradient across aortic valve in the study only 20 mmHg, valve area is 1.6 cm??? which represents mild aortic stenosis, morphologically there is at least moderate aortic stenosis. There is mild aortic insufficiency. 4. Mild mitral and tricuspid regurgitation. 5. No significant pericardial effusion noted. 6. Inferior vena cava is poorly visualized. Electronically signed by : John Wild MD 09/03/2021 16:27:55
--- NOTE | 2021-09-03 08:56 | HMH.ITSHM ---
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 []WARFARIN SPIRONOLACTONE PANTOPRAZOLE MULTIVITAMIN MEMANTINE LORATADINE LEVOTHYROXINE FUROSEMIDE CITALOPRAM BISOPROLOL ATORVASTATIN VITAMIN C AMLODIPINE ALBUTEROL FOLIC ACID
== END ==
PROVIDERS: PCP Internal Medicine Adolescent Medicine; Visit Provider Nurse Practitioner
DX: E78.2 Mixed hyperlipidemia (principal); G47.33 Obstructive sleep apnea (adult) (pediatric); I11.0 Hypertensive heart disease with heart failure; I25.10 Atherosclerotic heart disease of native coronary artery without angina pectoris; I27.20 Pulmonary hypertension, unspecified; I35.0 Nonrheumatic aortic (valve) stenosis; I50.32 Chronic diastolic (congestive) heart failure; R06.02 Shortness of breath; R94.31 Abnormal electrocardiogram [ECG] [EKG]; Z86.718 Personal history of other venous thrombosis and embolism; Z99.89 Dependence on other enabling machines and devices
CPT/HCPCS: 78452; 93017; 93306; A9502; J2785

== ENCOUNTER → 2021-09-10 12:02 | Outpatient (CLI) | payer MEDICARE, OTHER, SELFPAY ==
[2021-09-10 12:31] LABS: Basophils # 0.5 K/mm3 (0-0.2); Eosinophils # 0.6 K/mm3 (0.0-0.4); Eosinophils % 4.1 % (0.1-12.0); Hematocrit 48.6 % (42.0-52.0); Hemoglobin 16.6 g/dL (14.1-18.0); Lymphocytes % 39.7 % (10-50); Mean Corpuscular HGB Conc 34.2 g/dL (31.8-35.4); Mean Corpuscular Hemoglobin 34.3 pg (27.0-31.2); Mean Corpuscular Volume 100.3 fl (80-94); Mean Platelet Volume 10.4 fl (7.4-10.4); Monocytes # 1.1 K/mm3 (0.1-1.0); Monocytes % 7.3 % (1.7-9.3); Neutrophils # 6.9 K/mm3 (1.8-7.8); Neutrophils % 45.9 % (37.0-80.0); Platelet Count 470 K/mm3 (142-424); Red Blood Count 4.84 M/mm3 (4.60-6.20); Red Cell Distribution Width 14.4 % (11.5-17.5)
[2021-09-10 12:33] LABS: MANUAL DIFFERENTIAL MANUAL DIFFERENTIAL (MANUAL DIFF)
[2021-09-10 13:26] LABS: Chloride 99 mmol/L (98-107); Potassium 5.1 mmoL/L (3.5-5.1); Sodium 137 mmol/L (136-145)
[2021-09-10 13:29] LABS: Anion Gap 13.1 mEq/L (5-15); Blood Urea Nitrogen 20 mg/dl (9-20); Carbon Dioxide 30 mmol/L (22.0-30.0); Estimated Glomerular Filt Rate 47 ml/min (>60); GFR (African American) 56 ML/MIN (>60); Glucose 112 mg/dl (74-100)
[2021-09-10 15:03] LABS: Eosinophils % 2 % (0-3); Lymphocytes % 41 % (10-50); Monocytes % 6 % (2-9); Neutrophils % 49 % (42-76); Total Cells Counted 100
[2021-09-10 15:04] LABS: Macrocytosis 1+; Platelet Estimate Slight Increase
== END ==
PROVIDERS: PCP Internal Medicine Adolescent Medicine; Visit Provider Nurse Practitioner
DX: E78.2 Mixed hyperlipidemia (principal); I11.0 Hypertensive heart disease with heart failure; I25.10 Atherosclerotic heart disease of native coronary artery without angina pectoris; I27.20 Pulmonary hypertension, unspecified; I35.0 Nonrheumatic aortic (valve) stenosis; I50.32 Chronic diastolic (congestive) heart failure; I65.23 Occlusion and stenosis of bilateral carotid arteries; R06.02 Shortness of breath; R55 Syncope and collapse; R94.30 Abnormal result of cardiovascular function study, unspecified; Z86.711 Personal history of pulmonary embolism; Z86.718 Personal history of other venous thrombosis and embolism; Z01.812 Encounter for preprocedural laboratory examination; Z20.822 Contact with and (suspected) exposure to COVID-19
CPT/HCPCS: 36415; 80048; 85007; 85025; C9803; U0003; U0005

== ENCOUNTER 2021-09-11 08:31 | Day surgery (SDC) | payer MEDICARE, OTHER, SELFPAY ==
[2021-09-11] VITALS (15 sets, daily range): BP systolic 108–140; BP diastolic 55–78; PULSE 50–58; RESP 18–19; TEMP 36.8; O2SAT 91–98; BMI 39.4
--- NOTE | 2021-09-11 07:07 | IR_ITS ---
APPROVED REPORT Patient Location: Outpatient Kitchen Helper: CARLEY Mcclure RT (R) PROCEDURES Left heart catheterization Left ventriculogram Selective coronary angiogram INDICATION Angina pectoris, Abnormal Myoview Informed consent was obtained prior to the procedure. COMPLICATIONS None Estimated Blood Loss: Less than 10 mls TECHNIQUE One percent lidocaine used to anesthetize the right anterior aspect of the wrist. The right radial artery was accessed via the Seldinger technique. A 6 Serbian sheath was placed in the right radial artery. 2.5 mg of verapamil, 800 mcg of nitroglycerin, 1mg Lidocaine were given through the arterial sheath. The papa catheter was also used to perform left heart catheterization, left ventriculogram and selective coronary angiogram. At the end of the procedure the sheath was removed good hemostasis was achieved using Traclet band, patient was transferred to the postop holding area in stable condition. ANGIOGRAPHIC RESULTS The left main artery Normal The left anterior descending artery Has a proximal concentric 30% stenosis with mild mid vessel 10 to 20% stenoses The circumflex artery Large dominant normal The right coronary artery Nondominant normal The WOODS ventriculogram reveals Slight left ventricular dilatation with ejection fraction of 50% The left ventricular end-diastolic pressure Moderate to severely elevated at 35 mmHg IMPRESSION Mild nonflow limiting coronary disease Dilated ventricle with ejection fraction of 50% accompanied by moderate to severely elevated LVEDP which is the etiology for patient's symptoms PLAN 1. Treat diastolic dysfunction 2. Risk factor modification 3. LDL less than 55 to be achieved with high intensity statin 4. Will liberalize loop diuretics Electronically signed by : Rodrigo Martinez MD 09/11/2021 11:21:24
[2021-09-11 09:26] LABS: INR 2.85 (0.9-1.1); Prothrombin Time 29.8 seconds (10.1-12.5)
== END 2021-09-11 14:54 | disposition home or self-care (01) ==
LOC: CATHLAB 08:32
PROVIDERS: PCP Internal Medicine Adolescent Medicine; Visit Provider Internal Medicine
DX: E78.2 Mixed hyperlipidemia (principal); I11.0 Hypertensive heart disease with heart failure; I25.10 Atherosclerotic heart disease of native coronary artery without angina pectoris; I27.20 Pulmonary hypertension, unspecified; I35.0 Nonrheumatic aortic (valve) stenosis; I50.33 Acute on chronic diastolic (congestive) heart failure; I65.23 Occlusion and stenosis of bilateral carotid arteries; R06.02 Shortness of breath; R55 Syncope and collapse; R94.30 Abnormal result of cardiovascular function study, unspecified; Z86.711 Personal history of pulmonary embolism; Z86.718 Personal history of other venous thrombosis and embolism; Z79.899 Other long term (current) drug therapy; Z99.81 Dependence on supplemental oxygen
CPT/HCPCS: 85610; 93458; 99152; C1725; C1760; C1769; J1644; Q9967

== ENCOUNTER 2021-10-06 11:50 | Outpatient (CLI) | payer MEDICARE, OTHER, SELFPAY ==
[2021-10-06 14:41] LABS: PHA INR Fingerstick 1.7 (0.9-1.1)
== END 2021-10-06 14:47 | disposition home or self-care (01) ==
LOC: ACC 11:52
PROVIDERS: PCP Internal Medicine Adolescent Medicine; Visit Provider Internal Medicine Adolescent Medicine
DX: Z51.81 Encounter for therapeutic drug level monitoring (principal); Z79.01 Long term (current) use of anticoagulants
CPT/HCPCS: 85610; 99211; G0463

== ENCOUNTER → 2021-10-08 09:49 | Outpatient (CLI) | payer MEDICARE, OTHER, SELFPAY ==
[2021-10-08 10:44] LABS: Basophils # 0.3 K/mm3 (0-0.2); Basophils % 1.8 % (0.1-2.0); Eosinophils # 0.7 K/mm3 (0.0-0.4); Eosinophils % 4.3 % (0.1-12.0); Hematocrit 43.7 % (42.0-52.0); Hemoglobin 15.9 g/dL (14.1-18.0); Lymphocytes % 32.6 % (10-50); Mean Corpuscular HGB Conc 36.2 g/dL (31.8-35.4); Mean Corpuscular Hemoglobin 34.2 pg (27.0-31.2); Mean Corpuscular Volume 94.5 fl (80-94); Mean Platelet Volume 9.6 fl (7.4-10.4); Monocytes # 1.2 K/mm3 (0.1-1.0); Monocytes % 7.4 % (1.7-9.3); Neutrophils # 8.3 K/mm3 (1.8-7.8); Neutrophils % 53.9 % (37.0-80.0); Platelet Count 472 K/mm3 (142-424); Red Blood Count 4.63 M/mm3 (4.60-6.20); Red Cell Distribution Width 14.5 % (11.5-17.5); White Blood Count 15.5 K/mm3 (4.8-10.8)
[2021-10-08 10:56] LABS: MANUAL DIFFERENTIAL MANUAL DIFFERENTIAL (MANUAL DIFF)
[2021-10-08 10:57] LABS: Alanine Aminotransferase 30 U/L (12-78); Albumin Level 4.2 g/dl (3.5-5.0); Albumin/Globulin Ratio 1.4 (1.1-1.8); Alkaline Phosphatase 108 U/L (38-126); Anion Gap 12.9 mEq/L (5-15); Aspartate Amino Transferase 34 U/L (17-59); Bilirubin,Total 0.6 mg/dl (0.2-1.3); Blood Urea Nitrogen 27 mg/dl (9-20); Calcium 9.7 mg/dl (8.4-10.2); Carbon Dioxide 28 mmol/L (22.0-30.0); Chloride 99 mmol/L (98-107); Estimated Glomerular Filt Rate 50 ml/min (>60); GFR (African American) 61 ML/MIN (>60); Glucose 101 mg/dl (74-100); Potassium 4.9 mmoL/L (3.5-5.1); Sodium 135 mmol/L (136-145); Total Protein,Serum 7.2 g/dl (6.3-8.2)
[2021-10-08 12:46] LABS: Eosinophils % 5 % (0-3); Lymphocytes % 38 % (10-50); Monocytes % 4 % (2-9); Neutrophils % 53 % (42-76); Platelet Estimate Slight Increase; RBC Morphology Normal; Total Cells Counted 100
== END ==
PROVIDERS: PCP Internal Medicine Adolescent Medicine; Visit Provider Internal Medicine Medical Oncology
DX: D61.9 Aplastic anemia, unspecified (principal)
CPT/HCPCS: 36415; 80053; 85007; 85025

== ENCOUNTER → 2021-10-14 14:00 | Outpatient (CLI) | payer MEDICARE, OTHER, SELFPAY ==
[2021-10-14 14:45] VITALS: BMI 39.5
== END ==
PROVIDERS: PCP Internal Medicine; Visit Provider Internal Medicine Pulmonary Disease
DX: Z71.3 Dietary counseling and surveillance (principal); E11.9 Type 2 diabetes mellitus without complications
CPT/HCPCS: 97802

== ENCOUNTER 2021-11-03 12:28 | Outpatient (CLI) | payer MEDICARE, OTHER, SELFPAY | END 2021-11-03 12:45 | disposition home or self-care (01) | LOC: ACC 12:28 | PROVIDERS: PCP Internal Medicine Adolescent Medicine; Visit Provider Internal Medicine Adolescent Medicine | DX: Z51.81 Encounter for therapeutic drug level monitoring (principal); Z79.01 Long term (current) use of anticoagulants | CPT/HCPCS: 85610; 99211; G0463 ==

== ENCOUNTER 2021-12-15 12:12 | Outpatient (CLI) | payer MEDICARE, OTHER, SELFPAY ==
[2021-12-15 13:33] LABS: PHA INR Fingerstick 1.8 (0.9-1.1)
== END 2021-12-15 13:37 ==
LOC: ACC 12:13
PROVIDERS: PCP Internal Medicine Adolescent Medicine; Visit Provider Internal Medicine Adolescent Medicine
DX: Z51.81 Encounter for therapeutic drug level monitoring (principal); Z79.01 Long term (current) use of anticoagulants
CPT/HCPCS: 85610; 99211; G0463

== ENCOUNTER 2022-01-07 11:22 | Outpatient (CLI) | payer MEDICARE, OTHER, SELFPAY ==
[2022-01-07 15:24] LABS: PHA INR Fingerstick 2.1 (0.9-1.1)
== END 2022-01-07 15:27 ==
LOC: ACC 11:23
PROVIDERS: PCP Internal Medicine Adolescent Medicine; Visit Provider Internal Medicine Adolescent Medicine
DX: Z51.81 Encounter for therapeutic drug level monitoring (principal); Z79.01 Long term (current) use of anticoagulants
CPT/HCPCS: 85610; 99211; G0463

== ENCOUNTER → 2022-02-17 11:16 | Outpatient (CLI) | payer MEDICARE, OTHER, SELFPAY ==
--- NOTE | 2022-02-17 11:21 | MR_ITS ---
FINAL REPORT TECHNIQUE: Multiplanar MR without contrast CLINICAL HISTORY: LUMBAR SPINE PAIN left leg pain COMPARISON: July 2016 FINDINGS: Sagittal images show normal vertebral height. Alignment is normal. Marrow signal pattern is unremarkable. T12-L1: Small central disc protrusion with mild facet overgrowth. L1-2: Moderate annular disc bulge with mild facet overgrowth. Moderate central canal stenosis. Stable since prior. L2-3: Moderate annular disc bulge with mild facet overgrowth. Moderate central canal stenosis. Stable since prior. L3-4: Moderate annular disc bulge asymmetric to the right. Severe facet overgrowth and ligamentum flavum hypertrophy. Advanced central canal stenosis with compression of the thecal sac, slightly worse. Presumed synovial cyst in the posterior epidural spinal canal has increased slightly to 10 mm and was 8 mm. L4-5: Laminectomy change. No central canal stenosis. Moderate right bony neural foraminal narrowing, unchanged. L5-S1: Postoperative change from fusion. Mild left bony neural foraminal narrowing, stable. IMPRESSION: Degenerative changes as above most pronounced at L3-L4 with advanced central canal stenosis, worse. Reviewed, Interpreted and Dictated by Juan Alberto Overton MD Transcribed by Johnnie Ashford Authenticated and [facility]
== END ==
PROVIDERS: PCP Internal Medicine Adolescent Medicine; Visit Provider Orthopaedic Surgery
DX: M54.50 Low back pain, unspecified (principal)
CPT/HCPCS: 72148; 76376

== ENCOUNTER 2022-02-18 11:13 | Outpatient (CLI) | payer MEDICARE, OTHER, SELFPAY ==
[2022-02-18 14:08] LABS: PHA INR Fingerstick 3.3 (0.9-1.1)
== END 2022-02-18 14:12 ==
LOC: ACC 11:14
PROVIDERS: PCP Internal Medicine Adolescent Medicine; Visit Provider Internal Medicine Adolescent Medicine
DX: Z51.81 Encounter for therapeutic drug level monitoring (principal); Z79.01 Long term (current) use of anticoagulants
CPT/HCPCS: 85610; 99211; G0463

== ENCOUNTER 2022-03-17 11:05 | Outpatient (CLI) | payer MEDICARE, OTHER, SELFPAY ==
[2022-03-17 12:37] LABS: PHA INR Fingerstick 4.2 (0.9-1.1)
== END 2022-03-17 12:54 ==
LOC: ACC 11:07
PROVIDERS: PCP Internal Medicine Adolescent Medicine; Visit Provider Internal Medicine Adolescent Medicine
DX: Z51.81 Encounter for therapeutic drug level monitoring (principal); Z79.01 Long term (current) use of anticoagulants
CPT/HCPCS: 85610; 99211; G0463

== ENCOUNTER 2022-04-01 10:54 | Outpatient (CLI) | payer MEDICARE, OTHER, SELFPAY | END 2022-04-01 14:07 | LOC: ACC 10:55 | PROVIDERS: PCP Internal Medicine Adolescent Medicine; Visit Provider Internal Medicine Adolescent Medicine | DX: Z51.81 Encounter for therapeutic drug level monitoring (principal); Z79.01 Long term (current) use of anticoagulants | CPT/HCPCS: 99211; G0463 ==

== ENCOUNTER → 2022-04-07 12:08 | Outpatient (CLI) | payer MEDICARE, OTHER, SELFPAY ==
--- NOTE | 2022-04-07 13:32 | PC.NURSE ---
PFT and 6 Minute Walk Test completed without incident. Albuterol 0.083% given via HHN, per protocol, Pt tolerated tx well.
== END ==
PROVIDERS: PCP Internal Medicine Adolescent Medicine; Visit Provider Internal Medicine Pulmonary Disease
DX: R06.09 Other forms of dyspnea
CPT/HCPCS: 94060; 94618

== ENCOUNTER → 2022-04-22 15:08 | Outpatient (CLI) | payer MEDICARE, OTHER, SELFPAY ==
--- NOTE | 2022-04-22 15:13 | XR_ITS ---
FINAL REPORT CLINICAL HISTORY: PAIN FINDINGS: Right shoulder Three views were obtained. There is no acute fracture or dislocation. The joint spaces appear normal. No soft tissue abnormality is identified. IMPRESSION: No acute process. Reviewed, Interpreted and Dictated by Elbert Blank III, MD Transcribed by Aleena Caruso Authenticated and . [facility]
== END ==
PROVIDERS: PCP Internal Medicine Adolescent Medicine; Visit Provider Internal Medicine Adolescent Medicine
DX: M25.511 Pain in right shoulder (principal)
CPT/HCPCS: 73030

== ENCOUNTER 2022-04-28 10:26 | Outpatient (CLI) | payer MEDICARE, OTHER, SELFPAY ==
[2022-04-28 15:05] LABS: PHA INR Fingerstick 2.2 (0.9-1.1)
== END 2022-04-28 15:16 ==
LOC: ACC 10:27
PROVIDERS: PCP Internal Medicine Adolescent Medicine; Visit Provider Internal Medicine Adolescent Medicine
DX: Z51.81 Encounter for therapeutic drug level monitoring (principal); Z79.01 Long term (current) use of anticoagulants
CPT/HCPCS: 85610; 99211; G0463

== ENCOUNTER 2022-05-19 09:12 | Outpatient (RCR) | payer MEDICARE, OTHER, SELFPAY | END 2022-07-09 11:00 | disposition home or self-care (01) | LOC: PT 09:12 | PROVIDERS: Visit Provider Internal Medicine Pulmonary Disease | DX: J44.9 Chronic obstructive pulmonary disease, unspecified (principal) | CPT/HCPCS: 94626 ==

== ENCOUNTER → 2022-05-22 13:38 | Outpatient (CLI) | payer MEDICARE, OTHER, SELFPAY ==
--- NOTE | 2022-05-22 13:39 | MR_ITS ---
FINAL REPORT TECHNIQUE: Multiplanar and multisequence imaging of the shoulder was obtained without contrast. CLINICAL HISTORY: right shoulder pain x 1 month limited rom best images possible due to patient moving and instructed patient not to move , both shoulders and back hurting during scan COMPARISON: none FINDINGS: Motion artifact limits exam. Bones and joints: There is no acute fracture, edema, or pathologic marrow replacement. Acromioclavicular joint degenerative disease is present and there is osteophytosis which narrows the supraspinatus outlet. There is fluid at the acromioclavicular joint as well. Rotator cuff: There is supraspinatus and infraspinatus tendinopathy with a partial-thickness articular sided tear of the posterior supraspinatus tendon. The subscapularis is intact. There is no fatty atrophy of the rotator cuff muscles. Labrum: The biceps labral complex is intact. There is irregularity of the superior labrum extending posteriorly, possibly related to SLAP tear but exam is limited. The inferior glenohumeral ligament is intact. The biceps tendon is within normal limits. No biceps tendon tear is identified. Other: There is a small joint effusion. There is fluid in the subdeltoid bursa. Remaining soft tissues are within normal limits. IMPRESSION: Partial thickness articular sided supraspinatus tear. Degenerative joint disease. Probable SLAP tear, exam limited due to motion. Reviewed, Interpreted and Dictated by Samina Matthews MD Transcribed by Danay Smith Authenticated and [facility]
== END ==
PROVIDERS: PCP Internal Medicine Adolescent Medicine; Visit Provider Orthopaedic Surgery
DX: M75.41 Impingement syndrome of right shoulder (principal); M25.511 Pain in right shoulder
CPT/HCPCS: 73221

== ENCOUNTER 2022-06-09 10:11 | Outpatient (CLI) | payer MEDICARE, OTHER, SELFPAY ==
[2022-06-09 12:01] LABS: PHA INR Fingerstick 2.4 (0.9-1.1)
== END 2022-06-09 12:07 ==
LOC: ACC 10:11
PROVIDERS: PCP Internal Medicine Adolescent Medicine; Visit Provider Internal Medicine Adolescent Medicine
DX: Z51.81 Encounter for therapeutic drug level monitoring (principal); Z79.01 Long term (current) use of anticoagulants
CPT/HCPCS: 85610; 99211; G0463

== ENCOUNTER → 2022-06-16 13:56 | Outpatient (CLI) | payer MEDICARE, OTHER, SELFPAY ==
[2022-06-16 14:35] LABS: Basophils # 0.2 K/mm3 (0-0.2); Basophils % 1.2 % (0.1-2.0); Eosinophils # 0.4 K/mm3 (0.0-0.4); Eosinophils % 2.7 % (0.1-12.0); Hematocrit 48.4 % (42.0-52.0); Hemoglobin 16.5 g/dL (14.1-18.0); Lymphocytes # 4.3 K/mm3 (0.7-4.5); Lymphocytes % 26.3 % (10-50); Mean Corpuscular HGB Conc 34.1 g/dL (31.8-35.4); Mean Corpuscular Hemoglobin 33.1 pg (27.0-31.2); Mean Corpuscular Volume 97.1 fl (80-94); Mean Platelet Volume 10.5 fl (7.4-10.4); Neutrophils # 10.3 K/mm3 (1.8-7.8); Neutrophils % 63.8 % (37.0-80.0); Platelet Count 341 K/mm3 (142-424); Red Blood Count 4.99 M/mm3 (4.60-6.20); Red Cell Distribution Width 14.7 % (11.5-17.5); White Blood Count 16.2 K/mm3 (4.8-10.8)
[2022-06-16 14:41] LABS: Chloride 103 mmol/L (98-107); Potassium 5.2 mmoL/L (3.5-5.1); Sodium 139 mmol/L (136-145)
[2022-06-16 14:43] LABS: Blood Urea Nitrogen 27 mg/dl (9-20); Estimated Glomerular Filt Rate 46 ml/min (>60); GFR (African American) 56 ML/MIN (>60)
[2022-06-16 14:44] LABS: Alanine Aminotransferase 24 U/L (12-78); Albumin Level 4.4 g/dl (3.5-5.0); Albumin/Globulin Ratio 1.5 (1.1-1.8); Alkaline Phosphatase 78 U/L (38-126); Anion Gap 8.2 mEq/L (5-15); Aspartate Amino Transferase 23 U/L (17-59); Bilirubin,Total 1.5 mg/dl (0.2-1.3); Carbon Dioxide 33 mmol/L (22.0-30.0); Total Protein,Serum 7.4 g/dl (6.3-8.2)
[2022-06-16 14:45] LABS: Calcium 9.2 mg/dl (8.4-10.2); Glucose 89 mg/dl (74-100)
[2022-06-16 14:47] LABS: MANUAL DIFFERENTIAL MANUAL DIFFERENTIAL (MANUAL DIFF)
[2022-06-16 15:34] LABS: Lymphocytes % 24 % (10-50); Monocytes % 7 % (2-9); Neutrophils % 69 % (42-76); Platelet Estimate Normal; RBC Morphology Normal; Total Cells Counted 100
== END ==
PROVIDERS: PCP Nurse Practitioner Family; Visit Provider Nurse Practitioner Family
DX: I10 Essential (primary) hypertension (principal); D72.829 Elevated white blood cell count, unspecified
CPT/HCPCS: 36415; 80053; 85007; 85025

== ENCOUNTER → 2022-07-16 12:32 | Outpatient (CLI) | payer MEDICARE, OTHER, SELFPAY ==
[2022-07-16 13:02] LABS: Basophils # 0.2 K/mm3 (0-0.2); Basophils % 1.1 % (0.1-2.0); Eosinophils # 0.4 K/mm3 (0.0-0.4); Eosinophils % 2.3 % (0.1-12.0); Hematocrit 45.7 % (42.0-52.0); Lymphocytes # 5.8 K/mm3 (0.7-4.5); Lymphocytes % 37.2 % (10-50); Mean Corpuscular Hemoglobin 33.6 pg (27.0-31.2); Mean Corpuscular Volume 96.1 fl (80-94); Mean Platelet Volume 10.4 fl (7.4-10.4); Monocytes % 6.5 % (1.7-9.3); Neutrophils # 8.3 K/mm3 (1.8-7.8); Neutrophils % 52.8 % (37.0-80.0); Platelet Count 360 K/mm3 (142-424); Red Blood Count 4.75 M/mm3 (4.60-6.20); Red Cell Distribution Width 14.8 % (11.5-17.5); White Blood Count 15.7 K/mm3 (4.8-10.8)
[2022-07-16 13:07] LABS: MANUAL DIFFERENTIAL MANUAL DIFFERENTIAL (MANUAL DIFF)
[2022-07-16 13:18] LABS: Lymphocytes % 35 % (10-50); Monocytes % 10 % (2-9); Neutrophils % 55 % (42-76); Platelet Estimate Normal; RBC Morphology Normal; Total Cells Counted 100
== END ==
PROVIDERS: PCP Internal Medicine Adolescent Medicine; Visit Provider Internal Medicine Medical Oncology
DX: D72.829 Elevated white blood cell count, unspecified (principal)
CPT/HCPCS: 36415; 85007; 85025

== ENCOUNTER 2022-07-21 10:21 | Outpatient (CLI) | payer MEDICARE, OTHER, SELFPAY ==
[2022-07-21 11:09] LABS: PHA INR Fingerstick 2.1 (0.9-1.1)
== END 2022-07-21 12:03 ==
LOC: ACC 10:22
PROVIDERS: PCP Internal Medicine Adolescent Medicine; Visit Provider Internal Medicine Adolescent Medicine
DX: Z51.81 Encounter for therapeutic drug level monitoring (principal); Z79.01 Long term (current) use of anticoagulants
CPT/HCPCS: 85610; 99211; G0463

== ENCOUNTER 2022-09-08 10:31 | Outpatient (CLI) | payer MEDICARE, OTHER, SELFPAY ==
[2022-09-08 12:47] LABS: PHA INR Fingerstick 2.6 (0.9-1.1)
== END 2022-09-08 13:32 ==
LOC: ACC 10:32
PROVIDERS: PCP Internal Medicine Adolescent Medicine; Visit Provider Internal Medicine Adolescent Medicine
DX: Z51.81 Encounter for therapeutic drug level monitoring (principal); Z79.01 Long term (current) use of anticoagulants
CPT/HCPCS: 85610; 99211; G0463

== ENCOUNTER → 2022-10-08 11:33 | Outpatient (CLI) | payer MEDICARE, OTHER, SELFPAY ==
[2022-10-08 13:28] LABS: Alanine Aminotransferase 33 U/L (12-78); Albumin Level 4.3 g/dl (3.5-5.0); Alkaline Phosphatase 102 U/L (38-126); Anion Gap 14.3 mEq/L (5-15); Aspartate Amino Transferase 27 U/L (17-59); Bilirubin,Indirect 1.3 mg/dL (0.0-0.9); Bilirubin,Total 1.3 mg/dl (0.2-1.3); Bilirubin,Unconjugated 1.3 mg/dL (0.0-1.1); Blood Urea Nitrogen 28 mg/dl (9-20); Calcium 9.6 mg/dl (8.4-10.2); Carbon Dioxide 30 mmol/L (22.0-30.0); Chloride 101 mmol/L (98-107); Chol/HDL Ratio 3.6 (1-3.5); Cholesterol 204 mg/dl (140-200); Estimated Glomerular Filt Rate 50 ml/min (>60); GFR (African American) 61 ML/MIN (>60); Glucose 89 mg/dl (74-100); HDL Cholesterol 56 mg/dl (40-60); Potassium 5.3 mmoL/L (3.5-5.1); Sodium 140 mmol/L (136-145); Total Protein,Serum 7.1 g/dl (6.3-8.2); Triglycerides 168 mg/dl (30-150); VLDL Cholesterol 34 mg/dL (0-40)
[2022-10-08 13:46] LABS: Free T4 (Free Thyroxine) 1.13 ng/dl (0.78-2.19)
[2022-10-08 13:51] LABS: Direct LDL Cholesterol 119.95 mg/dL (100-129)
[2022-10-08 14:02] LABS: Thyroid Stimulating Hormone 2.09 uIU/mL (0.465-4.68)
[2022-10-08 16:28] LABS: Basophils # 0.1 K/mm3 (0-0.2); Basophils % 0.6 % (0.1-2.0); Eosinophils # 0.4 K/mm3 (0.0-0.4); Eosinophils % 2.7 % (0.1-12.0); Hemoglobin 16.1 g/dL (14.1-18.0); Lymphocytes # 3.9 K/mm3 (0.7-4.5); Mean Corpuscular HGB Conc 34.3 g/dL (31.8-35.4); Mean Corpuscular Hemoglobin 34.1 pg (27.0-31.2); Mean Corpuscular Volume 99.3 fl (80-94); Mean Platelet Volume 10.5 fl (7.4-10.4); Monocytes # 0.9 K/mm3 (0.1-1.0); Monocytes % 5.7 % (1.7-9.3); Neutrophils # 9.7 K/mm3 (1.8-7.8); Platelet Count 405 K/mm3 (142-424); Red Blood Count 4.74 M/mm3 (4.60-6.20); Red Cell Distribution Width 14.7 % (11.5-17.5); White Blood Count 14.9 K/mm3 (4.8-10.8)
== END ==
PROVIDERS: PCP Internal Medicine Adolescent Medicine; Visit Provider Nurse Practitioner Family
DX: E78.5 Hyperlipidemia, unspecified (principal); I11.9 Hypertensive heart disease without heart failure; I25.10 Atherosclerotic heart disease of native coronary artery without angina pectoris; I27.20 Pulmonary hypertension, unspecified; I35.0 Nonrheumatic aortic (valve) stenosis; I50.9 Heart failure, unspecified; I65.29 Occlusion and stenosis of unspecified carotid artery; R06.00 Dyspnea, unspecified; R53.83 Other fatigue; R94.31 Abnormal electrocardiogram [ECG] [EKG]; Z86.711 Personal history of pulmonary embolism; Z86.718 Personal history of other venous thrombosis and embolism; I63.9 Cerebral infarction, unspecified; E11.9 Type 2 diabetes mellitus without complications
CPT/HCPCS: 36415; 80048; 80061; 80076; 84439; 84443; 85025

== ENCOUNTER → 2022-10-19 08:46 | Outpatient (CLI) | payer MEDICARE, OTHER, SELFPAY ==
[2022-10-19 11:08] LABS: Blood Urea Nitrogen 25 mg/dl (9-20); Calcium 9.7 mg/dl (8.4-10.2); Carbon Dioxide 29 mmol/L (22.0-30.0); Chloride 102 mmol/L (98-107); Estimated Glomerular Filt Rate 55 ml/min (>60); GFR (African American) 66 ML/MIN (>60); Glucose 102 mg/dl (74-100); Sodium 138 mmol/L (136-145)
== END ==
PROVIDERS: PCP Internal Medicine Adolescent Medicine; Visit Provider Nurse Practitioner Family
DX: I10 Essential (primary) hypertension (principal); R06.02 Shortness of breath; R94.31 Abnormal electrocardiogram [ECG] [EKG]
CPT/HCPCS: 36415; 80048

== ENCOUNTER 2022-10-20 10:12 | Outpatient (CLI) | payer MEDICARE, OTHER, SELFPAY ==
[2022-10-20 11:53] LABS: Prothrombin Time 74.5 seconds (10.1-12.5)
[2022-10-20 13:52] LABS: PHA INR Fingerstick 5.9 (0.9-1.1)
== END 2022-10-20 13:53 ==
PROVIDERS: PCP Internal Medicine Adolescent Medicine; Visit Provider Internal Medicine Adolescent Medicine
DX: Z79.01 Long term (current) use of anticoagulants (principal); Z51.81 Encounter for therapeutic drug level monitoring
CPT/HCPCS: 36415; 85610; 99211; G0463

== ENCOUNTER → 2022-10-22 07:48 | Outpatient (CLI) | payer MEDICARE, OTHER, SELFPAY ==
--- NOTE | 2022-10-22 07:50 | CA_ITS ---
APPROVED REPORT EXAM: Comprehensive 2D, Doppler, and color-flow Echocardiogram Paralegals: Petrona Ravi CRT Ht: 5 ft 8 in Wt: 265lbs BSA: 2.30 BP: 112/81 mmHg Indications: ISAAC, PHTN, MOD , CAD, CHF, COPD, HOME O2, HTN, HLD, TDE D/T BODY HABITUS AND SOB 2D Dimensions LVOT 1.60 cm (M/F) 1.5-2.5 LA Volume 60.50 mL LA Volume Index 25.60 mL/m2 (M/F) 16-34 M-Mode Dimensions RVDd 2.81 cm (0.9-2.6) LA Diam 4.05 cm (1.9-4.0) LVDd 5.53 cm (3.5-5.7) Ao Diam 4.26 cm (2.0-3.7) LVDs 3.32 cm (3.5-5.7) IVSd 1.87 cm (0.6-1.1) PWd 1.87 cm (0.6-1.1) EF (Teich) 70.00% FS 40.00% EDV (Teich) 149.30 mL TAPSE 1.65 (<1.7) ESV (Teich) 44.80 mL LV Diastology E Decel Time 280.00 (160-240 msec) E/A Ratio 0.49 MED E' 5.30 (< 7 cm/sec) MED A' 11.00 cm/s E'/MED E' Ratio 7.49 (>14) LAT E' 5.10 (<10 cm/sec) LAT A' 8.40 cm/s E/LAT E' Ratio 7.78 (>14) Aortic Valve LVOT Max 121.00 (70-110 cm/s) LVOT VTI 29.24 cm AoV Peak Srinivas. 312.00 (50-130 cm/s) AI PHT 492.00 ms AO Peak GR. 39.10 mmHg AO Mean GR. 24.20 (<5 mmHg) AO VTI 60.37 (18-25 cm) GUIDO (VTI) 0.97 (2.5-4.5 cm2) Mitral Valve MV E Max Srinivas. 40.00 (40-130 cm/s) MV A Velocity 81.00 (40-130 cm/s) E/A Ratio 0.49 MV Decel. Time 280.00 (160-240 ms) MV PHT 82.00 ms Pulmonary Valve PV Peak Velocity 150.00 (50-150 cm/s) Tricuspid Valve TR P. Velocity 174.00 cm/s RAP Estimate 10.00 mmHg RVSP 22.20 mmHg Left Ventricle The left ventricle is normal size. The left ventricular systolic function is normal. The left ventricular ejection fraction is within the normal range. There is increased LV wall thickness. There is normal LV segmental wall motion. Transmitral Doppler flow pattern suggests impaired LV relaxation. LVEF is 60%. Right Ventricle The right ventricle is normal size. The right ventricular systolic function is normal. Atria The left atrium size is normal. The right atrium size is normal. Aortic Valve The aortic valve is moderately thickened. There is moderate to severe aortic stenosis. AV area by continuity equation is 0.8 cm2. Peak velocity 3.1 m/s. Mean AV gradient 24 mmHg. Peak AV gradient is 39 mmHg. Mild aortic regurgitation. Mitral Valve The mitral valve is mildly thickened. No evidence of mitral valve stenosis. Trace mitral regurgitation. Tricuspid Valve The tricuspid valve leaflets are thin and pliable. Trace tricuspid regurgitation. RVSP = 10 mmHg + RA pressure Pulmonic Valve The pulmonary valve is normal in structure. Trace pulmonic regurgitation. Great Vessels The aortic root is normal in size. The IVC is not well visualized. Pericardium There is no pericardial effusion. Other Information Study Quality: Fair Conclusion Normal biventricular systolic function. Moderate to severe aortic stenosis Mild AI Electronically signed by : Yara Delatorre, 10/23/2022 11:10:21
== END ==
PROVIDERS: PCP Internal Medicine Adolescent Medicine; Visit Provider Nurse Practitioner Family
DX: E78.5 Hyperlipidemia, unspecified (principal); I11.9 Hypertensive heart disease without heart failure; I25.10 Atherosclerotic heart disease of native coronary artery without angina pectoris; I27.20 Pulmonary hypertension, unspecified; I35.0 Nonrheumatic aortic (valve) stenosis; R06.00 Dyspnea, unspecified; R53.83 Other fatigue; R94.31 Abnormal electrocardiogram [ECG] [EKG]; Z86.711 Personal history of pulmonary embolism; Z86.718 Personal history of other venous thrombosis and embolism; I65.23 Occlusion and stenosis of bilateral carotid arteries
CPT/HCPCS: 93306

== ENCOUNTER 2022-10-23 10:14 | Outpatient (CLI) | payer MEDICARE, OTHER, SELFPAY ==
[2022-10-23 13:58] LABS: PHA INR Fingerstick 1.5 (0.9-1.1)
== END 2022-10-23 14:03 ==
LOC: ACC 10:15
PROVIDERS: PCP Internal Medicine Adolescent Medicine; Visit Provider Internal Medicine Adolescent Medicine
DX: Z79.01 Long term (current) use of anticoagulants (principal); Z51.81 Encounter for therapeutic drug level monitoring
CPT/HCPCS: 85610; 99211; G0463

== ENCOUNTER 2022-11-11 10:40 | Outpatient (CLI) | payer MEDICARE, OTHER, SELFPAY ==
[2022-11-11 11:00] LABS: PHA INR Fingerstick 3.8 (0.9-1.1)
== END 2022-11-11 11:06 ==
PROVIDERS: PCP Internal Medicine Adolescent Medicine; Visit Provider Internal Medicine Adolescent Medicine
DX: Z79.01 Long term (current) use of anticoagulants (principal); Z51.81 Encounter for therapeutic drug level monitoring
CPT/HCPCS: 85610; 99211; G0463

== ENCOUNTER 2022-11-25 11:28 | Outpatient (CLI) | payer MEDICARE, OTHER, SELFPAY ==
[2022-11-25 14:05] LABS: PHA INR Fingerstick 2.8 (0.9-1.1)
== END 2022-11-25 15:51 ==
PROVIDERS: PCP Internal Medicine Adolescent Medicine; Visit Provider Internal Medicine Adolescent Medicine
DX: Z79.01 Long term (current) use of anticoagulants (principal); Z51.81 Encounter for therapeutic drug level monitoring
CPT/HCPCS: 85610; 99211; G0463

== ENCOUNTER → 2022-12-14 11:10 | Outpatient (CLI) | payer MEDICARE, OTHER, SELFPAY ==
[2022-12-14 18:39] LABS: Basophils # 0.2 K/mm3 (0-0.2); Basophils % 1.2 % (0.1-2.0); Eosinophils # 0.3 K/mm3 (0.0-0.4); Eosinophils % 2.2 % (0.1-12.0); Hematocrit 52.2 % (42.0-52.0); Hemoglobin 17.2 g/dL (14.1-18.0); Mean Corpuscular Hemoglobin 34.3 pg (27.0-31.2); Mean Platelet Volume 12.7 fl (7.4-10.4); Monocytes % 6.2 % (1.7-9.3); Neutrophils # 9.1 K/mm3 (1.8-7.8); Neutrophils % 58.5 % (37.0-80.0); Platelet Count 509 K/mm3 (142-424); Red Blood Count 5.02 M/mm3 (4.60-6.20); Red Cell Distribution Width 15.2 % (11.5-17.5); White Blood Count 15.6 K/mm3 (4.8-10.8)
[2022-12-14 18:47] LABS: MANUAL DIFFERENTIAL MANUAL DIFFERENTIAL (MANUAL DIFF)
[2022-12-14 18:55] LABS: Alanine Aminotransferase 34 U/L (12-78); Albumin Level 4.6 g/dl (3.5-5.0); Albumin/Globulin Ratio 1.4 (1.1-1.8); Alkaline Phosphatase 100 U/L (38-126); Anion Gap 13.9 mEq/L (5-15); Aspartate Amino Transferase 36 U/L (17-59); Bilirubin,Total 1.3 mg/dl (0.2-1.3); Blood Urea Nitrogen 25 mg/dl (9-20); Calcium 9.8 mg/dl (8.4-10.2); Carbon Dioxide 31 mmol/L (22.0-30.0); Chloride 101 mmol/L (98-107); Chol/HDL Ratio 3.4 (1-3.5); Cholesterol 145 mg/dl (140-200); Estimated Glomerular Filt Rate 55 ml/min (>60); GFR (African American) 66 ML/MIN (>60); Globulin 3.3 g/dL (1.3-3.2); Glucose 106 mg/dl (74-100); HDL Cholesterol 43 mg/dl (40-60); Potassium 4.9 mmoL/L (3.5-5.1); Sodium 141 mmol/L (136-145); Total Protein,Serum 7.9 g/dl (6.3-8.2); Triglycerides 132 mg/dl (30-150); VLDL Cholesterol 26 mg/dL (0-40)
[2022-12-14 19:06] LABS: Direct LDL Cholesterol 76.13 mg/dL (100-129)
[2022-12-14 19:09] LABS: Eosinophils % 1 % (0-3); Lymphocytes % 24 % (10-50); Monocytes % 13 % (2-9); Neutrophils % 59 % (42-76); Total Cells Counted 100
[2022-12-14 19:12] LABS: Howell-Jolly Bodies 1+; Macrocytosis 1+
[2022-12-14 19:13] LABS: Platelet Estimate Slight Increase
[2022-12-14 19:14] LABS: 25-OH Vitamin D, Total 30.8 ng/mL (30-100); Free T4 (Free Thyroxine) 1.25 ng/dl (0.78-2.19)
[2022-12-14 19:25] LABS: Thyroid Stimulating Hormone 1.62 uIU/mL (0.465-4.68)
[2022-12-14 20:01] LABS: Vitamin B12 582 pg/mL (239-931)
== END ==
PROVIDERS: PCP Student in an Organized Health Care Education/Training Program; Visit Provider Student in an Organized Health Care Education/Training Program
DX: I10 Essential (primary) hypertension (principal); R53.83 Other fatigue; I25.10 Atherosclerotic heart disease of native coronary artery without angina pectoris; E03.9 Hypothyroidism, unspecified; E66.9 Obesity, unspecified; Z68.41 Body mass index [BMI] 40.0-44.9, adult
CPT/HCPCS: 80053; 80061; 82306; 82607; 82746; 84439; 84443; 85007; 85025

== ENCOUNTER → 2022-12-16 12:31 | Outpatient (CLI) | payer MEDICARE, OTHER, SELFPAY ==
[2022-12-16 12:40] LABS: Microscopic, Urine URINE MICROSCOPIC (MICROSCOPIC)
[2022-12-16 13:21] LABS: Appearance,Urine CLEAR (Clear); Bilirubin,Urine Negative (Negative); Blood, Urine Negative (Negative); Color,Urine YELLOW (Yellow); Glucose,Urine (UA) Negative (Negative); Ketones,Urine Negative (Negative); Leukocyte Esterase,Urine Negative (Negative); Nitrate,Urine Negative (Negative); Protein,Urine Negative (Negative); Urobilinogen,Urine 0.2 EU/dl (0.2)
[2022-12-16 13:32] LABS: Creatinine,Urine Random 112 mg/dL (Not Estab.)
[2022-12-16 13:33] LABS: Microalbumin/Creatinine Ratio 24.2
[2022-12-16 13:38] LABS: Squamous Epithelial Cell,Urine Occasional #/hpf (0-5); WBC,Urine Occasional #/hpf (0-3)
[2022-12-16 13:39] LABS: Bacteria,Urine Trace /lpf
== END ==
PROVIDERS: PCP Student in an Organized Health Care Education/Training Program; Visit Provider Student in an Organized Health Care Education/Training Program
DX: N18.30 Chronic kidney disease, stage 3 unspecified (principal)
CPT/HCPCS: 81001; 82043; 82570

== ENCOUNTER 2022-12-23 09:59 | Outpatient (CLI) | payer MEDICARE, OTHER, SELFPAY | END 2022-12-23 14:51 | LOC: ACC 10:00 | PROVIDERS: Visit Provider Internal Medicine Adolescent Medicine | DX: Z79.01 Long term (current) use of anticoagulants (principal); Z51.81 Encounter for therapeutic drug level monitoring | CPT/HCPCS: 85610; 99211; G0463 ==

== ENCOUNTER → 2022-12-25 08:25 | Outpatient (CLI) | payer MEDICARE, OTHER, SELFPAY ==
[2022-12-25 13:52] LABS: Microscopic, Urine URINE MICROSCOPIC (MICROSCOPIC)
[2022-12-25 14:36] LABS: Appearance,Urine CLEAR (Clear); Bilirubin,Urine Negative (Negative); Blood, Urine Negative (Negative); Color,Urine YELLOW (Yellow); Glucose,Urine (UA) 3+ (Negative); Ketones,Urine Negative (Negative); Leukocyte Esterase,Urine Negative (Negative); Nitrate,Urine Negative (Negative); Protein,Urine Negative (Negative); Urobilinogen,Urine 0.2 EU/dl (0.2)
[2022-12-25 15:05] LABS: Squamous Epithelial Cell,Urine Occasional #/hpf (0-5)
== END ==
PROVIDERS: PCP Internal Medicine; Visit Provider Internal Medicine
DX: N18.30 Chronic kidney disease, stage 3 unspecified (principal)
CPT/HCPCS: 81001

== ENCOUNTER → 2022-12-31 09:15 | Outpatient (CLI) | payer MEDICARE, OTHER, SELFPAY ==
--- NOTE | 2022-12-31 09:16 | US_ITS ---
FINAL REPORT TECHNIQUE: Ultrasound images of the kidneys and bladder were obtained. CLINICAL HISTORY: .dec renal function FINDINGS: The right kidney measures 8.9 cm in length. It is normal in echogenicity. There is no hydronephrosis. The left kidney measures 10.8 cm in length. It is normal in echogenicity. There is no hydronephrosis. The urinary bladder is unremarkable. IMPRESSION: No hydronephrosis. Reviewed, Interpreted and Dictated by Elbert Blank III, MD Transcribed by Hannah Bhat Authenticated and [facility]
== END ==
PROVIDERS: PCP Student in an Organized Health Care Education/Training Program; Visit Provider Student in an Organized Health Care Education/Training Program
DX: N18.30 Chronic kidney disease, stage 3 unspecified (principal)
CPT/HCPCS: 76770

== ENCOUNTER 2023-01-11 14:54 | Outpatient (RCR) | payer MEDICARE, OTHER, SELFPAY ==
--- NOTE | 2023-01-11 16:16 | HMH.PTOPEV ---
PT Outpatient Evaluation Rehab PT Outpatient Evaluation Start: 01/11/23 14:57 Freq: Status: Active Protocol: Document 01/11/23 14:57 AILIN (Rec: 01/11/23 16:14 AILIN [id number]) E-signed By Alix Fox, PT Outpatient Therapy Subjective History Subjective History Pt is a 72 y/o male who reports chronic low back pain that has led to balance deficits. Pt denies recent falls or injuries. Pt reports history of 2 back surgeries in 1978 including a laminectomy of L4-5 and a fusion of L5-S1. Pt reports worsening of left- sided low back pain and LLE numbness/tingling from his posterior hip to the knee ~2-3 years ago. Pt reports occasionally n/t extends to his ankle and foot. Pt reports since increased back pain, he has noticed unsteadiness on his feet and incontinence with urination. Pt denies saddle anesthesia. Pt denies LUE symptoms. Pt reports he leans forward when he walks due to inability to stand up straight because of low back pain. Pt also reports he feels unsteady on his feet when he over exerts himself. Pt states he does not have an AD to use. Pt reports he gets SOA with activity easily and does use 3L of oxygen only at night time. Pt reports he gets dizzy when he changes positions such as with supine to sit or sit to stand but denies dizziness while walking . Medical History: COPD, Restrictive Lung Disease, Pulmonary Hypertension, HTN, HLD, CHF, CAD, allerginic rhinitis, sleep apnea, aortic valve stenosis, dyspnea on exertion, laminectomy L4-5 and fusion of L5-S1, [facility] testing: negative myoclonus, negative tromners Slump test: positive on L 5x sit to stand: 26 from elevated table height, no UE support New diagnosis of cancer in past 12 No months? Chief Complaint Pain,Paresthesia,Weakness, Decreased Coordination Symptom Type Ache,Sharp,Dull,Numbness, Tingling Symptoms Relieved By Rest/Positioning Symptoms Aggravated By Standing,Bending/Stooping, Physical Activity,Walking, Sneeze/Coughing Prior Functional Limitations None Symptom Description Constant but Variable Level of pain today (0-10) 5 Pain scale - at its best (0-10) 3 Pain scale - at its worst (0-10) 9 Lumbopelvic Eval Posture Lumbar Spine Posture Standing Position Decreased Lordosis,Flexed Assistive device Assistive Devices None / NA Gait Observation General Gait Pattern Observation Wide Based Gait,Shuffling Step ,Hips Posterior to NARINDER Palapation tenderness bilateral lumbar spinal tenderness Yes paraspinal tenderness Yes buttock tenderness Yes Lumbar/Sacral Palpation Findings Tenderness Accessory Movement L-spine Vertebrae Accessory Movements Central P/A [place] that Elicit Symptoms L2 bilateral L3 bilateral L5 bilateral S1 bilateral Range of Motion Lumbar Spine Active Flexion Range of 25 Motion (degrees) Lumbar Spine Active Extension Range of 5 Motion (degrees) Left Lumbar Spine Lateral Flexion Active 12 Range of Motion (degrees) Right Lumbar Spine Lateral Flexion 8 Active Range of Motion (degrees) Manual Muscle Test Right Knee Extension Strength Grade 5 Normal Knee Flexion Strength Grade 5 Normal Hip Flexion Strength Grade 4 Good Hip Abduction Strength Grade 4 Good Hip Adduction Strength Grade 4 Good Ankle Dorsiflexion Strength Grade 5 Normal Left Knee Extension Strength Grade 4 Good Knee Flexion Strength Grade 4 Good Hip Flexion Strength Grade 4- Good- Hip Abduction Strength Grade 4- Good- Hip Adduction Strength Grade 4- Good- Gastronemius/Soleus Strength Grade 5 Normal DTR Rt Patellar 0 Lt Patellar 2+ Altered Sensation Bilateral Comment equal and intact to light touch sensation bilaterally Special Tests Unilateral Straight Leg Raise (Lasegue) Positive Left Test Balance Eval Oculomotor Gaze Oculomotor Gaze Nml: Vergence Smooth Pursuit Saccades VOR Cancellation Cover/Uncover Cross Cover [place] Feet Together/Eyes open/Stable Surface pass Feet Together/Eyes Closed/Stable Surface pass Feet Together/Eyes open/Unstable Surface fail Feet Together/Eyes Closed/Unstable fail Surface Outpatient Therapy Assessment Impairments Problems/Impairmments Palpation Tenderness,Impaired Range of Motion,Impaired Strength,Impaired Gait Pattern ,Impaired Walking,Impaired Standing,Impaired Sitting, Impaired Household Care, Impaired Bending,Impaired Balance,Subjective C/O Pain, Impaired Self Care/Self Management Prognosis Rehab Potential Good Comment barriers to progress include chronicity of LBP with surgical history as well as an extensive medical history Clinical Impression Consistent with Diagnosis Yes Consistent with also lumbar radiculopathy, rec MRI Short Term Goals Number of Weeks 3 Increase Range of Motion Yes: Improve lumbar flexion AROM to at least 40 Increase Strength Yes: Improve LLE MMT by half grade to assist with functional activities Improve Gait Pattern with Assistive Yes: demonstrate proper gait Device mechanics with SPC to decrease fall risk Improve Balance Yes: FT EC on unstable surface 30 without LOB to dec fall risk Decrease Subjective C/O Pain Yes: Improve pain at worst to 7/10 to improve overall QOL Improve Self Care/Self Management Yes Senior Living Goals Number of Weeks 6 Increase Range of Motion Yes: Improve lumbar flexion AROM to at least 50-60 and ext to 10 Increase Strength Yes: Improve LLE MMT to 4+/5 to assist with functional activities Increase Endurance Yes: NuStep x5-10' with RPE 5/ 10 or less Improve Transfers Yes: 5x sit to stand 15 or less to decrease fall risk Decrease Subjective C/O Pain Yes: Improve pain at worst to 5/10 to improve overall QOL Patient to be Ind w/ HEP Yes Outpatient Therapy Plan of Care Treatment Plan May Include Therapeutic Exercise Including Home Yes Exercise Program Manual Therapy Techniques Yes Neuromuscular Re-education Yes Therapeutic Activities to Return to Yes Previous Functional/Work Level Gait Training Yes ADL/Self Care Education Yes Dry Needling Yes Thermal Modalities Yes Electrical Stimulation Yes Ultrasound/Phonophoresis Yes Iontophoresis Yes Massage Yes Group Therapy for Medicare Yes Eval/Re-Eval Yes Frequency Times per week 2 Duration Number of Weeks 4-6 Addendums This patient is a candidate for social No or vocational rehab? Patient/Guardian verbally acknowledges Yes understanding of treatment program and consents to further treatment? Patient/Guardian verbally acknowledges Yes understanding of diagnosis, prognosis and goals for treatment? Eval Complexity PT Charges 16610 - Moderate Complexity Shoulder/Elbow Eval Shoulder Objective Measurements Elbow Objective Measurements PHYSICIAN CERTIFICATION: I certify the specified therapy services for Reji Carrillo are required, authorized, and reviewed every 30 days.
== END 2023-01-11 15:55 | disposition home or self-care (01) ==
LOC: PT 14:54
PROVIDERS: PCP Student in an Organized Health Care Education/Training Program; Visit Provider Student in an Organized Health Care Education/Training Program
DX: R27.8 Other lack of coordination (principal); R26.89 Other abnormalities of gait and mobility
CPT/HCPCS: 97163

== ENCOUNTER 2023-01-20 10:46 | Outpatient (CLI) | payer MEDICARE, OTHER, SELFPAY ==
[2023-01-20 11:44] LABS: PHA INR Fingerstick 1.6 (0.9-1.1)
== END 2023-01-20 11:48 ==
LOC: ACC 10:48
PROVIDERS: PCP Student in an Organized Health Care Education/Training Program; Visit Provider Student in an Organized Health Care Education/Training Program
DX: Z79.01 Long term (current) use of anticoagulants (principal); Z51.81 Encounter for therapeutic drug level monitoring
CPT/HCPCS: 85610; 99211; G0463

== ENCOUNTER → 2023-01-28 08:05 | Outpatient (CLI) | payer MEDICARE, OTHER, SELFPAY ==
--- NOTE | 2023-01-28 08:05 | US_ITS ---
FINAL REPORT CLINICAL HISTORY: h/o tobacco use, screen for AAA FINDINGS: ULTRASOUND ABDOMINAL AORTA, SCREENING Limited sonographic images were obtained of the abdomen to evaluate the abdominal aorta and iliac arteries. The abdominal aorta measures up to 2.0 cm in greatest dimension. The iliac arteries are within normal limits. IMPRESSION: No evidence of abdominal aortic aneurysm. Reviewed, Interpreted and Dictated by Samina Matthews MD Transcribed by Mariella Johnston Authenticated and [facility]
== END ==
PROVIDERS: PCP Student in an Organized Health Care Education/Training Program; Visit Provider Student in an Organized Health Care Education/Training Program
DX: Z13.6 Encounter for screening for cardiovascular disorders (principal)
CPT/HCPCS: 76705

== ENCOUNTER 2023-02-10 13:37 | Outpatient (CLI) | payer MEDICARE, OTHER, SELFPAY ==
[2023-02-10 14:31] LABS: PHA INR Fingerstick 1.4 (0.9-1.1)
== END 2023-02-10 14:45 ==
LOC: ACC 13:39
PROVIDERS: PCP Student in an Organized Health Care Education/Training Program; Visit Provider Student in an Organized Health Care Education/Training Program
DX: Z79.01 Long term (current) use of anticoagulants (principal); Z51.81 Encounter for therapeutic drug level monitoring
CPT/HCPCS: 85610; 99211; G0463

== ENCOUNTER 2023-03-10 12:30 | Outpatient (CLI) | payer MEDICARE, OTHER, SELFPAY ==
[2023-03-10 13:51] LABS: PHA INR Fingerstick 1.7 (0.9-1.1)
== END 2023-03-10 14:12 ==
LOC: ACC 12:31
PROVIDERS: PCP Student in an Organized Health Care Education/Training Program; Visit Provider Student in an Organized Health Care Education/Training Program
DX: Z79.01 Long term (current) use of anticoagulants (principal); Z51.81 Encounter for therapeutic drug level monitoring
CPT/HCPCS: 85610; 99211; G0463

== ENCOUNTER → 2023-03-18 14:02 | Outpatient (CLI) | payer MEDICARE, OTHER, SELFPAY ==
[2023-03-18 14:47] LABS: Hemoglobin A1C 4.9 % (4.0-6.0)
[2023-03-18 14:58] LABS: NT Pro Brain Natriuretic Pep. 279 pg/mL (0-125)
== END ==
LOC: LAB 14:04
PROVIDERS: PCP Student in an Organized Health Care Education/Training Program; Visit Provider Family Medicine
DX: I11.0 Hypertensive heart disease with heart failure (principal); I50.33 Acute on chronic diastolic (congestive) heart failure; Z00.00 Encounter for general adult medical examination without abnormal findings; E11.9 Type 2 diabetes mellitus without complications; Z79.84 Long term (current) use of oral hypoglycemic drugs; Z87.891 Personal history of nicotine dependence
CPT/HCPCS: 36415; 83036; 83880

== ENCOUNTER 2023-04-07 11:20 | Outpatient (CLI) | payer MEDICARE, OTHER, SELFPAY ==
[2023-04-07 12:54] LABS: PHA INR Fingerstick 1.9 (0.9-1.1)
== END 2023-04-07 12:57 ==
LOC: ACC 11:21
PROVIDERS: PCP Student in an Organized Health Care Education/Training Program; Visit Provider Student in an Organized Health Care Education/Training Program
DX: Z79.01 Long term (current) use of anticoagulants (principal); Z51.81 Encounter for therapeutic drug level monitoring
CPT/HCPCS: 85610; 99211; G0463

== ENCOUNTER 2023-04-12 11:50 | Outpatient (CLI) | payer MEDICARE, OTHER, SELFPAY ==
--- NOTE | 2023-04-12 12:12 | CT_ITS ---
FINAL REPORT TECHNIQUE: Multiple axial CT sections were performed from the foramen magnum to the vertex. Coronal reformatted images were also obtained. Precontrast and postcontrast injection images were obtained. This study was performed with technique to keep radiation doses as low as reasonably achievable, (ALARA). Individualized dose reduction techniques using automated exposure control or adjustment of mA and/or kV according to the patient size were employed. CLINICAL HISTORY: double vision FINDINGS: There is moderate cortical atrophy. The ventricles are normal in size for degree of atrophy. There is decreased attenuation throughout the deep white matter consistent with chronic microvascular ischemic change. There is no evidence of hemorrhage. No masses are identified. No extra-axial fluid collection is seen. The sinuses are normal. No osseous abnormality is seen on the bone window images. Postcontrast images demonstrate no abnormal enhancement. IMPRESSION: Atrophy and chronic microvascular ischemic change. Otherwise, unremarkable CT of the head with and without contrast. Reviewed, Interpreted and Dictated by Juan F Posadas MD Transcribed by Hannah Bhat Authenticated and [facility]
[2023-04-12 12:33] LABS: Blood Urea Nitrogen 24 mg/dl (9-20); Estimated Glomerular Filt Rate 50 ml/min (>60); GFR (African American) 61 ML/MIN (>60)
[2023-04-12] MEDS: IOPAMIDOL-300 (61%) 100ML VIAL 100 ML IV (13:02)
== END 2023-04-12 23:59 ==
LOC: RAD 11:50
PROVIDERS: PCP Student in an Organized Health Care Education/Training Program; Visit Provider Family Medicine
DX: H53.2 Diplopia (principal)
CPT/HCPCS: 36415; 70470; 82565; 84520; Q9967

== ENCOUNTER 2023-04-22 14:25 | Outpatient (CLI) | payer MEDICARE, OTHER, SELFPAY ==
--- NOTE | 2023-04-22 14:38 | CT_ITS ---
FINAL REPORT CLINICAL HISTORY: R06.09 - Other forms of dyspnea, shortness of breath FINDINGS: CT CHEST without contrast , high resolution protocol COMPARISON: None . TECHNIQUE: Axial CT without IV contrast administration. Study included routine imaging as well as high-resolution images. FINDINGS: There is no evidence of diffuse interstitial lung disease. No bronchiectasis is seen.. No pleural or pericardial effusion is seen . Multifocal mild mediastinal adenopathy is present. Favor reactive. Images of the upper abdomen show a dominant large gallstone.. IMPRESSION: 1. No evidence of interstitial lung disease 2. No evidence of edema or pneumonia 3. Mild nonspecific mediastinal adenopathy 4. Dominant large gallstone This study was performed using automated techniques to achieve radiation exposure as low as reasonably achievable Authenticated and [facility]
[2023-04-22 15:50] VITALS: PULSE 81
[2023-04-22] MEDS: ALBUTEROL 0.083% 2.5 MG/3 ML NEB IH (15:50)
== END 2023-04-22 23:59 ==
LOC: RAD 14:26
PROVIDERS: PCP Student in an Organized Health Care Education/Training Program; Visit Provider Internal Medicine Pulmonary Disease
DX: R06.09 Other forms of dyspnea (principal)
CPT/HCPCS: 71250; 94060; 94618; 94640; 94726; 94729

== ENCOUNTER 2023-04-23 13:25 | Outpatient (CLI) | payer MEDICARE, OTHER, SELFPAY ==
--- NOTE | 2023-04-23 13:26 | CA_ITS ---
APPROVED REPORT EXAM: Comprehensive 2D, Doppler, and color-flow Echocardiogram Linoleum Tile Floor Layer: PARESH Larry, RVS Ht: 5 ft 6 in Wt: 265lbs BSA: 2.25 BP: 112/81 mmHg Indications: COPD, ex-smoker, SOA, O2 dependent at night, , PHTN,CHF, CAD Echo Enhancing Agent Comments: Extremely limited windows with poor acoustics throughout exam 2D Dimensions Left Atrium 4.32 cm M: 3.0 - 4.0 LA Volume 40.20 mL LA Volume Index 17.79 mL/m2 (M/F) 16-34 EF AP4 38.60 % GL Strain 0.6 % M-Mode Dimensions RVDd 2.06 cm (0.9-2.6) LA Diam 4.52 cm (1.9-4.0) LVDd 6.28 cm (3.5-5.7) LVDs 3.89 cm (3.5-5.7) IVSd 1.31 cm (0.6-1.1) PWd 1.41 cm (0.6-1.1) EF (Teich) 67.20% EPSs 0.75 cm FS 38.10% EDV (Teich) 199.70 mL TAPSE 1.65 (<1.7) ESV (Teich) 65.50 mL LV Diastology E Decel Time 77 (160-240 msec) E/A Ratio 0.55 MED A' 11.10 cm/s LAT A' 10.00 cm/s Aortic Valve GUIDO Index 0.43 cm2/m2 AoV Peak Srinivas. 249.0 (50-130 cm/s) AI PHT 418.00 ms AO Peak GR. 24.90 mmHg AO Mean GR. 12.30 (<5 mmHg) AO VTI 46.1 (18-25 cm) GUIDO (VTI) 1.02 (2.5-4.5 cm2) Mitral Valve MV A Velocity 78.0 (40-130 cm/s) E/A Ratio 0.55 Tricuspid Valve TR P. Velocity 199.00 cm/s RAP Estimate 10.00 mmHg RVSP 25.90 mmHg Left Ventricle The left ventricle is normal size. The left ventricular systolic function is normal. The left ventricular ejection fraction is within the normal range. There is increased LV wall thickness. There is normal LV segmental wall motion. The left ventricular diastolic function is normal. LVEF is 60%. Right Ventricle The right ventricle is normal size. The right ventricular systolic function is normal. Atria The left atrium size is normal. The right atrium size is normal. Color Doppler demonstrates possible left to right interatrial shunt. Lipomatous hypertrophy of the interatrial septum is present. Aortic Valve The aortic valve is moderately thickened. Moderate aortic stenosis. GUIDO by continuity equation is 1.2 cm2. Peak velocity 2.7 m/s. Mean AV gradient is 12 mmHg. Max AV gradient is 25 mmHg. DI=0.32. Mild aortic regurgitation. Mitral Valve The mitral valve leaflets are mildly thickened. No evidence of mitral valve stenosis. Trace mitral regurgitation. Tricuspid Valve The tricuspid valve leaflets are thin and pliable. Mild tricuspid regurgitation. RVSP is 20-25 mmHg. Pulmonic Valve The pulmonary valve is normal in structure. Trace pulmonic regurgitation. Great Vessels The aortic root is normal in size. The ascending aorta is not well visualized. IVC is normal in size and collapses >50% with inspiration. Pericardium There is no pericardial effusion. Other Information Study Quality: Technically Difficult Conclusion Technically difficult study due to poor accoustic windows. Normal biventricular systolic function. Moderate (GUIDO by continuity equation is 1.2 cm2. Peak velocity 2.7 m/s. Mean AV gradient is 12 mmHg. Max AV gradient is 25 mmHg. DI=0.32). Mild TR. Color Doppler demonstrates possible left to right interatrial shunt. Lipomatous hypertrophy of the interatrial septum is present. In the setting of absence hemodynamic consequences, age, and normal RV size/function, no additional assessemt for the interatrial shunt is needed. Serial assessment of the moderate is recommended. Electronically signed by : Yara Delatorre MD 04/30/2023 17:51:49
== END 2023-04-23 23:59 ==
LOC: RT 13:26
PROVIDERS: PCP Student in an Organized Health Care Education/Training Program; Visit Provider Physician Assistant
DX: I35.0 Nonrheumatic aortic (valve) stenosis (principal); I65.29 Occlusion and stenosis of unspecified carotid artery; R06.09 Other forms of dyspnea; R94.31 Abnormal electrocardiogram [ECG] [EKG]
CPT/HCPCS: 93306

== ENCOUNTER 2023-04-28 11:17 | Outpatient (CLI) | payer MEDICARE, OTHER, SELFPAY ==
[2023-04-28 12:11] LABS: PHA INR Fingerstick 2.3 (0.9-1.1)
== END 2023-04-28 12:13 ==
PROVIDERS: PCP Student in an Organized Health Care Education/Training Program; Visit Provider Student in an Organized Health Care Education/Training Program
DX: Z79.01 Long term (current) use of anticoagulants (principal); I82.409 Acute embolism and thrombosis of unspecified deep veins of unspecified lower extremity
CPT/HCPCS: 85610; 99211; G0463

== ENCOUNTER 2023-05-12 15:39 | Outpatient (CLI) | payer MEDICARE, OTHER, SELFPAY ==
[2023-05-12 17:26] LABS: Free T4 (Free Thyroxine) 0.88 ng/dl (0.78-2.19)
[2023-05-12 17:39] LABS: Thyroid Stimulating Hormone 3.22 uIU/mL (0.465-4.68)
[2023-05-12 17:58] LABS: Vitamin B12 372 pg/mL (239-931)
[2023-05-13 09:47] LABS: Triiodothyronine (T3) Free 1.9 pg/mL (2.0-4.4)
[2023-05-14 07:51] LABS: Thyroid Stimulating Immunoglob <0.10 IU/L (0.00-0.55)
[2023-05-17 09:10] LABS: AChR Modulating Ab 0 % (0-45)
[2023-05-18 18:09] LABS: Voltage-gated Ca Antibody <1.0 pmol/L (0.0-30.0)
[2023-05-18 22:12] LABS: MuSK Antibodies <1.0
[2023-05-18 22:13] LABS: AChR Binding Abs 0.04
[2023-05-18 22:15] LABS: AChR Blocking Abs 13
== END 2023-05-12 23:59 ==
LOC: LAB 15:40
PROVIDERS: PCP Student in an Organized Health Care Education/Training Program; Visit Provider Specialist
DX: H53.2 Diplopia (principal); E03.8 Other specified hypothyroidism
CPT/HCPCS: 36415; 82607; 83519; 84439; 84443; 84445; 84481; 86255; 86596

== ENCOUNTER 2023-05-26 12:01 | Outpatient (CLI) | payer MEDICARE, OTHER, SELFPAY ==
[2023-05-26 13:56] LABS: PHA INR Fingerstick 1.1 (0.9-1.1)
== END 2023-05-26 14:32 ==
LOC: ACC 12:02
PROVIDERS: PCP Student in an Organized Health Care Education/Training Program; Visit Provider Student in an Organized Health Care Education/Training Program
DX: Z79.01 Long term (current) use of anticoagulants (principal); Z51.81 Encounter for therapeutic drug level monitoring
CPT/HCPCS: 85610; 99211; G0463

== ENCOUNTER 2023-05-27 10:20 | Outpatient (CLI) | payer MEDICARE, OTHER, SELFPAY ==
[2023-05-27 10:44] LABS: Basophils # 0.2 K/mm3 (0-0.2); Basophils % 1.3 % (0.1-2.0); Eosinophils # 0.3 K/mm3 (0.0-0.4); Eosinophils % 1.7 % (0.1-12.0); Hematocrit 52.9 % (42.0-52.0); Lymphocytes # 4.2 K/mm3 (0.7-4.5); Lymphocytes % 26.3 % (10-50); Mean Corpuscular HGB Conc 35.2 g/dL (31.8-35.4); Mean Corpuscular Hemoglobin 34.2 pg (27.0-31.2); Mean Corpuscular Volume 97.1 fl (80-94); Mean Platelet Volume 9.4 fl (7.4-10.4); Monocytes % 6.3 % (1.7-9.3); Neutrophils # 10.2 K/mm3 (1.8-7.8); Neutrophils % 64.4 % (37.0-80.0); Platelet Count 340 K/mm3 (142-424); Red Blood Count 5.45 M/mm3 (4.60-6.20); Red Cell Distribution Width 15.2 % (11.5-17.5); White Blood Count 15.9 K/mm3 (4.8-10.8)
[2023-05-27 10:50] LABS: MANUAL DIFFERENTIAL MANUAL DIFFERENTIAL (MANUAL DIFF)
[2023-05-27 11:01] LABS: Alanine Aminotransferase 29 U/L (12-78); Albumin Level 4.5 g/dl (3.5-5.0); Albumin/Globulin Ratio 1.7 (1.1-1.8); Alkaline Phosphatase 97 U/L (38-126); Anion Gap 10.9 mEq/L (5-15); Aspartate Amino Transferase 28 U/L (17-59); Bilirubin,Total 1.4 mg/dl (0.2-1.3); Blood Urea Nitrogen 30 mg/dl (9-20); Calcium 9.7 mg/dl (8.4-10.2); Carbon Dioxide 34 mmol/L (22.0-30.0); Chloride 99 mmol/L (98-107); Estimated Glomerular Filt Rate 60 ml/min (>60); GFR (African American) 72 ML/MIN (>60); Globulin 2.6 g/dL (1.3-3.2); Glucose 98 mg/dl (74-100); Potassium 3.9 mmoL/L (3.5-5.1); Sodium 140 mmol/L (136-145); Total Protein,Serum 7.1 g/dl (6.3-8.2)
[2023-05-27 11:06] LABS: D-Dimer 0.41 ug/mL (0.0-0.5)
[2023-05-27 11:11] LABS: NT Pro Brain Natriuretic Pep. 373 pg/mL (0-125)
[2023-05-27 11:17] LABS: Lymphocytes % 25 % (10-50); Monocytes % 10 % (2-9); Neutrophils % 65 % (42-76); RBC Morphology Normal; Total Cells Counted 100
[2023-05-27 11:18] LABS: Platelet Estimate Normal
[2023-05-27 11:21] LABS: Hemoglobin 18.6 g/dL (14.1-18.0)
== END 2023-05-27 23:59 ==
LOC: LAB 10:21
PROVIDERS: PCP Student in an Organized Health Care Education/Training Program; Visit Provider Student in an Organized Health Care Education/Training Program
DX: R06.00 Dyspnea, unspecified (principal); Z86.718 Personal history of other venous thrombosis and embolism; R79.1 Abnormal coagulation profile
CPT/HCPCS: 36415; 80053; 83880; 85007; 85025; 85378

== ENCOUNTER 2023-06-03 08:03 | Outpatient (CLI) | payer MEDICARE, OTHER, SELFPAY ==
--- NOTE | 2023-06-03 08:12 | US_ITS ---
FINAL REPORT CLINICAL HISTORY: gallstone FINDINGS: RIGHT UPPER QUADRANT ULTRASOUND Sonographic images of the right upper quadrant were obtained. The pancreas is partially obscured.The liver has an unremarkable appearance. There is a 27 mm gallstone in the gallbladder. Probable other gallstones are identified. The common duct measures 3 mm. Limited images of the right kidney are normal. IMPRESSION: Cholelithiasis. Reviewed, Interpreted and Dictated by Elbert Blank III, MD Transcribed by Aleena Caruso Authenticated and [facility][1]
--- NOTE | 2023-06-03 12:38 | MR_ITS ---
FINAL REPORT CLINICAL HISTORY: Diplopia, memory loss COMPARISON: Prior CT 04/12/2023 FINDINGS: Multiplanar MR imaging of the brain was performed without and with contrast. There is moderate to severe age-appropriate atrophy. Scattered foci of increased T2 signal are seen in the cerebral white matter that have a nonspecific appearance but likely represent moderate to severe chronic ischemic/gliotic changes. There is no evidence of intracranial hemorrhage or mass. No abnormal ventricular dilatation is identified. There is no evidence of shift of the midline structures. No abnormal extra-axial fluid collection is seen. No area of abnormal restricted diffusion is identified. 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 No abnormal contrast enhancement is seen. Normal major vessel vascular flow voids are seen. IMPRESSION: Moderate to severe atrophy and chronic ischemic/gliotic changes. No acute intracranial abnormality. Reviewed, Interpreted and Dictated by Elbert Blank III, MD Transcribed by Martha Calzada Authenticated and [facility]
[2023-06-03] MEDS: GADOTERIDOL INJ 17ML SYRINGE 22 ML IV (13:48)
[2023-06-03] MEDS: SODIUM CHLORIDE 0.9% 10ML SYR (RAD ONLY) 10 ML IV (13:48)
== END 2023-06-03 23:59 ==
LOC: RAD 08:04
PROVIDERS: PCP Student in an Organized Health Care Education/Training Program; Visit Provider Specialist
DX: K80.20 Calculus of gallbladder without cholecystitis without obstruction (principal); H53.2 Diplopia; R41.3 Other amnesia
CPT/HCPCS: 70553; 76705; A9576

== ENCOUNTER 2023-06-09 13:20 | Outpatient (CLI) | payer MEDICARE, OTHER, SELFPAY ==
[2023-06-09 14:44] LABS: PHA INR Fingerstick 1.5 (0.9-1.1)
== END 2023-06-09 14:52 ==
LOC: ACC 13:21
PROVIDERS: PCP Student in an Organized Health Care Education/Training Program; Visit Provider Student in an Organized Health Care Education/Training Program
DX: Z51.81 Encounter for therapeutic drug level monitoring (principal); Z79.01 Long term (current) use of anticoagulants
CPT/HCPCS: 85610; 99211; G0463

== ENCOUNTER 2023-06-17 11:32 | Outpatient (CLI) | payer MEDICARE, OTHER, SELFPAY ==
--- NOTE | 2023-06-17 11:37 | XR_ITS ---
FINAL REPORT CLINICAL HISTORY: LUE pain after fall COMPARISON: None FINDINGS: LEFT WRIST Three views demonstrate no acute fracture or dislocation. The visualized joint spaces are normally aligned. The soft tissues are unremarkable. There is mild heterotrophic change of the basilar joint. There is a degenerative cyst present in the distal radius, lateral aspect. IMPRESSION: No acute bony abnormality. Reviewed, Interpreted and Dictated by Juan F Posadas MD Transcribed by Martha Calzada Authenticated and . [facility]
--- NOTE | 2023-06-17 11:37 | XR_ITS ---
FINAL REPORT CLINICAL HISTORY: LUE pain after fall COMPARISON: None FINDINGS: 2 views of the left forearm were obtained. There is no acute fracture or dislocation. The joints are intact. There are no soft tissue abnormalities. IMPRESSION: No acute process. Reviewed, Interpreted and Dictated by Juan F Posadas MD Transcribed by Martha Calzada Authenticated and [facility]
--- NOTE | 2023-06-17 11:37 | XR_ITS ---
FINAL REPORT CLINICAL HISTORY: LUE pain after fall COMPARISON: None FINDINGS: LEFT HAND Three views demonstrate no acute fracture or dislocation. The visualized joint spaces are normally aligned. The soft tissues are unremarkable. There is mild heterotrophic change of the basilar joint. There is joint space narrowing consistent with osteoarthritis primarily involving the third DIP and second PIP joints. There are tendon anchors on either side of the second PIP joint. IMPRESSION: No acute process. 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 Reviewed, Interpreted and Dictated by Juan F Posadas MD Transcribed by Martha Calzada Authenticated and [facility]
== END 2023-06-17 23:59 | disposition home or self-care (01) ==
PROVIDERS: PCP Student in an Organized Health Care Education/Training Program; Visit Provider Student in an Organized Health Care Education/Training Program
DX: M25.532 Pain in left wrist; M79.642 Pain in left hand; W19.XXXA Unspecified fall, initial encounter
CPT/HCPCS: 73090; 73110; 73130

== ENCOUNTER 2023-06-18 12:31 | Outpatient (CLI) | payer MEDICARE, OTHER, SELFPAY ==
[2023-06-18 13:08] LABS: Basophils # 0.3 K/mm3 (0-0.2); Basophils % 1.8 % (0.1-2.0); Eosinophils # 0.2 K/mm3 (0.0-0.4); Eosinophils % 1.4 % (0.1-12.0); Hematocrit 49.2 % (42.0-52.0); Hemoglobin 17.2 g/dL (14.1-18.0); Lymphocytes # 3.8 K/mm3 (0.7-4.5); Lymphocytes % 24.5 % (10-50); Mean Corpuscular Hemoglobin 33.7 pg (27.0-31.2); Mean Corpuscular Volume 96.5 fl (80-94); Mean Platelet Volume 9.8 fl (7.4-10.4); Monocytes # 1.2 K/mm3 (0.1-1.0); Monocytes % 7.8 % (1.7-9.3); Neutrophils % 64.5 % (37.0-80.0); Platelet Count 430 K/mm3 (142-424); Red Cell Distribution Width 15.7 % (11.5-17.5); White Blood Count 15.5 K/mm3 (4.8-10.8)
[2023-06-18 13:16] LABS: Hemoglobin A1C 5.4 % (4.0-6.0)
[2023-06-18 13:21] LABS: MANUAL DIFFERENTIAL MANUAL DIFFERENTIAL (MANUAL DIFF)
[2023-06-18 13:25] LABS: Alanine Aminotransferase 28 U/L (12-78); Albumin Level 4.1 g/dl (3.5-5.0); Albumin/Globulin Ratio 1.5 (1.1-1.8); Alkaline Phosphatase 82 U/L (38-126); Anion Gap 8.8 mEq/L (5-15); Aspartate Amino Transferase 27 U/L (17-59); Bilirubin,Total 1.2 mg/dl (0.2-1.3); Blood Urea Nitrogen 23 mg/dl (9-20); Calcium 9.5 mg/dl (8.4-10.2); Carbon Dioxide 34 mmol/L (22.0-30.0); Chloride 99 mmol/L (98-107); Estimated Glomerular Filt Rate 66 ml/min (>60); GFR (African American) 80 ML/MIN (>60); Globulin 2.7 g/dL (1.3-3.2); Glucose 112 mg/dl (74-100); Potassium 3.8 mmoL/L (3.5-5.1); Sodium 138 mmol/L (136-145); Total Protein,Serum 6.8 g/dl (6.3-8.2)
[2023-06-18 13:56] LABS: Prostate Specific Ag Screen 3.7 ng/ml (0.0-4.0)
[2023-06-18 14:07] LABS: Lymphocytes % 26 % (10-50); Monocytes % 7 % (2-9); Neutrophils % 61 % (42-76); Promyelocytes % 1 %; Total Cells Counted 100
[2023-06-18 14:17] LABS: RBC Morphology Normal
[2023-06-18 14:18] LABS: Platelet Estimate Slight Increase
[2023-06-18 15:51] LABS: Vitamin B12 385 pg/mL (239-931)
== END 2023-06-18 23:59 ==
PROVIDERS: PCP Student in an Organized Health Care Education/Training Program; Visit Provider Family Medicine
DX: E11.9 Type 2 diabetes mellitus without complications (principal); Z12.5 Encounter for screening for malignant neoplasm of prostate; N18.30 Chronic kidney disease, stage 3 unspecified; E66.01 Morbid (severe) obesity due to excess calories; Z68.41 Body mass index [BMI] 40.0-44.9, adult; D75.89 Other specified diseases of blood and blood-forming organs
CPT/HCPCS: 36415; 80053; 82607; 83036; 85007; 85025; G0103

== ENCOUNTER 2023-06-24 16:34 | Emergency (ER) | payer MEDICARE, OTHER, SELFPAY ==
[2023-06-24 16:34] VITALS: BP 143/66; PULSE 104; RESP 18; TEMP 36.7; O2SAT 98; BMI 39.4
--- NOTE | 2023-06-24 16:36 | CT_ITS ---
PROCEDURE INFORMATION: Exam: CT Cervical Spine Without Contrast Exam date and time: 06/24/2023 5:13 PM Age: 72 years old Clinical indication: Injury or trauma; Fall; Blunt trauma; Additional info: Head trauma TECHNIQUE: Imaging protocol: Computed tomography of the cervical spine without contrast. Radiation optimization: All CT scans at this facility use at least one of these dose optimization techniques: automated exposure control; mA and/or kV adjustment per patient size (includes targeted exams where dose is matched to clinical indication); or iterative reconstruction. COMPARISON: CT HEAD/BRAIN WO CON 06/24/2023 5:07 PM FINDINGS: Bones/joints: There is ossification of the nuchal ligament. The cervical spine shows relatively preserved alignment of the vertebral bodies with no evidence of acute fractures or dislocations. However, age-related degenerative changes are observed, including mild disc space narrowing and osteophyte formation at multiple levels. These findings are consistent with age related degenerative disease. Lungs: Lung apices are normal. Vasculature: There are atherosclerotic calcifications of the carotid bulbs bilaterally. Soft tissues: See Bones/joints finding. IMPRESSION: Multilevel degenerative change without acute injury identified.
--- NOTE | 2023-06-24 16:36 | ED_ITS ---
Discharge Plan Disposition Patient Disposition: Home, Self-Care Condition: Good Prescriptions Prescriptions: No Action warfarin 5 mg tablet 5 mg PO MOWEFR ipratropium-albuterol 0.5 mg-3 mg(2.5 mg base)/3 mL solution for nebulization 3 ml IH QID PRN (Reason: shortness of breath or wheezing) 90 Days Qty: 270 3RF thiamine HCl (vitamin B1) 100 mg tablet 100 mg PO DAILY ascorbic acid (vitamin C) 500 mg capsule, extended release 500 mg PO Q12H azelastine 137 mcg (0.1 %) aerosol,spray 1 spray intranasal BID 90 Days Qty: 90 3RF Rx Instructions: administer into each nostril Anoro Ellipta 62.5-25 mcg/actuation blister with device 1 inh inhalation DAILY 90 Days Qty: 180 2RF fluticasone propionate [Flonase Allergy Relief] 50 mcg/actuation spray,suspension 2 spray intranasal DAILY 90 Days Qty: 16 3RF Rx Instructions: administer into each nostril albuterol sulfate [ProAir HFA] 90 mcg/actuation HFA aerosol inhaler 1 inh IH QID PRN (Reason: shortness of breath or wheezing) 90 Days Qty: 8.5 3RF atorvastatin 80 mg tablet See Rx Instructions .ROUTE .COMPLEX Qty: 90 1RF Dose Instruction: Take 1 tablet by mouth once daily Rx Instructions: Take 1 tablet by mouth once daily citalopram 20 mg tablet 20 mg PO DAILY 30 Days Qty: 90 3RF levothyroxine 50 mcg tablet 50 mcg PO DAILY Qty: 90 3RF bumetanide 1 mg tablet 2 mg PO DAILY Qty: 180 3RF amlodipine 5 mg tablet 5 mg PO DAILY Qty: 30 1RF memantine 10 mg tablet 10 mg PO BID 30 Days Qty: 60 1RF Jardiance 10 mg tablet See Rx Instructions .ROUTE .COMPLEX Qty: 30 5RF Dose Instruction: Take 1 tablet by mouth once daily Rx Instructions: Take 1 tablet by mouth once daily warfarin 5 mg Tablet 7.5 mg PO ROSENDO Referrals Follow up/Referrals: Lidya Douglas PA [Primary Care Provider] - See instructions Activity Restrictions/Add. Instructions Additional Instructions/Restrictions: Please return to PCP or emergency department in 5 days for staple removal. Sooner if any redness drainage or any other change in your condition as needed. Clinical Impressions Clinical Impression: Laceration Discharge ED Provider: Johnnie Cope General Adult HPI <TIARRA Carmona - Last Filed: 06/24/23 17:09> General Chief complaint: Fall Stated complaint: Fall Time Seen by Provider: 06/24/23 16:35 History of Present Illness HPI narrative: Patient presents for evaluation of a head laceration. 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 Patient struck the vertex of his head on the corner of a cabinet causing a small laceration and bleeding. Patient did not lose consciousness. Patient denies any other injury or pain. He denies neurologic symptoms nausea vomiting change in sense of taste or smell. Related Data Home Medications Medication Instructions Recorded Confirmed ascorbic acid (vitamin C) 500 mg 500 mg PO Q12H . 09/26/19 06/17/23 capsule,extended release warfarin 5 mg tablet 5 mg PO MOWEFR Blood thinner 06/25/21 06/17/23 warfarin 5 mg tablet 7.5 mg PO SUTUTHSA Blood thinner 12/01/21 06/17/23 thiamine HCl (vitamin B1) 100 mg 100 mg PO DAILY 12/21/22 06/17/23 tablet Previous Rx's Medication Instructions Recorded azelastine 137 mcg (0.1 %) nasal 1 spray intranasal BID 90 days #90 02/17/22 spray aerosol mL albuterol sulfate 90 mcg/actuation 1 inh inhalation QID PRN shortness 08/20/22 aerosol inhaler (ProAir HFA) of breath or wheezing 90 days #8.5 grams fluticasone propionate 50 2 spray intranasal DAILY 90 days 08/20/22 mcg/actuation nasal #16 grams spray,suspension (Flonase Allergy Relief) atorvastatin 80 mg tablet See Rx Instructions .Route 10/29/22 .COMPLEX #90 tabs citalopram 20 mg tablet 20 mg PO DAILY dementia 30 days 12/22/22 #90 tabs levothyroxine 50 mcg tablet 50 mcg PO DAILY . #90 tabs 12/22/22 ipratropium 0.5 mg-albuterol 3 mg 3 ml inhalation QID PRN shortness 02/15/23 (2.5 mg base)/3 mL nebulization of breath or wheezing 90 days #270 soln mL bumetanide 1 mg tablet 2 mg (2 x 1 mg) PO DAILY #180 tabs 04/13/23 amlodipine 5 mg tablet 5 mg PO DAILY . #30 tabs 04/26/23 memantine 10 mg tablet 10 mg PO BID dementia 30 days #60 05/11/23 tabs empagliflozin 10 mg tablet See Rx Instructions .Route 05/31/23 (Jardiance) .COMPLEX #30 tabs umeclidinium 62.5 mcg-vilanterol 1 inh inhalation DAILY 90 days 05/31/23 25 mcg/actuation powdr for #180 ea inhalation (Anoro Ellipta) Allergies Allergy/AdvReac Type Severity Reaction Status Date / Time No Known Allergies Allergy Verified 06/17/23 10:30 PFS <TIARRA Carmona - Last Filed: 06/24/23 17:09> PFS Disclaimer: The information contained in this section may have been updated after the patient was seen, as this information can be updated by other users. Medical History Sleep apnea Gall stone History of sleep apnea COPD exacerbation Allergic rhinitis Restrictive lung disease Allergic rhinitis History of smoking 30 or more pack years Dyspnea on exertion COPD (chronic obstructive pulmonary disease) Dyspnea on exertion Moderate aortic stenosis Mild aortic stenosis Pre-op evaluation HLD (hyperlipidemia) Pulmonary embolism CHF (congestive heart failure) Pulmonary hypertension HHD (hypertensive heart disease) CAD (coronary artery disease) DVT (deep venous thrombosis) Fatigue HTN (hypertension) Aortic valve stenosis Surgical History Status post arthroscopy of hip History of arthroscopic knee surgery Family History Other Stroke Social History Smoking Status: Former smoker tobacco type: cigarettes second hand exposure: No alcohol intake: never substance use type: denies use current occupational status: retired Travel in the last 8 weeks: None household members: significant other housing: house current occupational exposures/hazards: No caffeine: Yes <TIARRA Carmona - Last Filed: 06/24/23 17:09> ROS Obtained: Yes Systems reviewed as appropriate & no additional complaints except as documented Physical Exam <TIARRA Carmona - Last Filed: 06/24/23 17:09> General General appearance: alert and in no apparent distress Head Head exam: other (Patient has a small approximately 2 cm laceration at the vertex of his head that currently is hemostatic. Patient has no bony deformity on palpation.) Eye Eye exam: Present normal appearance, PERRL and EOMI ENT ENT exam: Present normal exam, normal oropharynx and mucous membranes moist Neck Neck exam: Present normal inspection, full ROM and trachea midline; Absent tenderness or meningismus Respiratory Respiratory exam: Present normal lung sounds bilaterally Cardiovascular Cardiovascular exam: Present regular rate and normal rhythm Extremities Exam Extremities exam: Present normal inspection and full ROM Back Exam Back exam: Present normal inspection and full ROM; Absent tenderness Neurological Exam Neurological exam: Present alert, oriented X3 and CN II-XII intact Skin Skin exam: Present warm, dry, normal color and other (2 cm laceration at the vertex of the scalp) Medical Decision Making <TIARRA Carmona - Last Filed: 06/24/23 17:09> Medical Records Medical records reviewed: Yes I reviewed the patient's medical records. Win Inquiry Pt receiving controlled substance: No Vital Signs: 06/24/23 16:34 06/24/23 17:34 Temperature 98.0 F 98 F Temperature Source Oral Pulse Rate 108 H Pulse Rate [Right Radial] 104 H Respiratory Rate 18 20 Blood Pressure 127/79 Blood Pressure [Right Arm] 143/66 H Blood Pressure Mean [Right Arm] 91 Blood Pressure Source [Right Arm] Automatic Cuff Blood Pressure Position [Right Arm] Sitting 02 Sat by Pulse Oximetry 98 Oxygen Delivery Method Room Air Room Air Orders (Tests/Meds): ORDERS Category Date Time Status CT cervical spine wo con Stat Cat Scan 06/24/23 16:[address] head/brain wo con Stat Cat Scan 06/24/23 16:37 Completed Medical Decision Narrative: In summary patient is a 72-year-old male who presents to the emergency department for evaluation of a scalp Laceration. Patient is hemodynamically stable upon arrival, afebrile. Physical exam is remarkable for 2 cm laceration at the vertex of the head that is only minimally tender. There is no bony deformity. Palpation of the C-spine T-spine L-spine shows no acute process no acute bony deformity. Pupils are equal round reactive to light accommodation. Patient has no neurologic deficits.. Differential diagnosis includes simple superficial laceration versus occult bleed versus fracture etc. Initial workup will be conducted with CT scan of the head and neck without contrast. Skin closed with 3 neil. My informal interpretation of his CT scan of the neck and head shows no acute processes or bleed fracture etc. Given this patient is appropriate for discharge home with instructions to return for any change in symptoms redness increasing pain drainage etc. Neil can be removed in 5 days. <Johnnie Cope MD - Last Filed: 06/24/23 20:52> Vital Signs: 06/24/23 16:34 06/24/23 17:34 Temperature 98.0 F 98 F Temperature Source Oral Pulse Rate 108 H Pulse Rate [Right Radial] 104 H Respiratory Rate 18 20 Blood Pressure 127/79 Blood Pressure [Right Arm] 143/66 H Blood Pressure Mean [Right Arm] 91 Blood Pressure Source [Right Arm] Automatic Cuff Blood Pressure Position [Right Arm] Sitting 02 Sat by Pulse Oximetry 98 Oxygen Delivery Method Room Air Room Air Orders (Tests/Meds): ORDERS Category Date Time Status CT cervical spine wo con Stat Cat Scan 06/24/23 16:[address] head/brain wo con Stat Cat Scan 06/24/23 16:37 Completed Medical Decision Narrative: In summary patient is a 72-year-old male who presents to the emergency department for evaluation of a scalp Laceration. Patient is hemodynamically stable upon arrival, afebrile. Physical exam is remarkable for 2 cm laceration at the vertex of the head that is only minimally tender. There is no bony deformity. Palpation of the C-spine T-spine L-spine shows no acute process no acute bony deformity. Pupils are equal round reactive to light accommodation. Patient has no neurologic deficits.. Differential diagnosis includes simple superficial laceration versus occult bleed versus fracture etc. Initial workup will be conducted with CT scan of the head and neck without contrast. Skin dominique sed with 3 enil. My informal interpretation of his CT scan of the neck and head shows no acute processes or bleed fracture etc. Given this patient is appropriate for discharge home with instructions to return for any change in symptoms redness increasing pain drainage etc. Neil can be removed in 5 days. I was consulted by the WANDA, and we discussed the complexity of the problems being addressed. I approved the treatment and management plan for this patient?s care in the Emergency Department, thus performing a substantive portion of the medical decision making. Johnnie Cope MD Procedures <TIARRA Carmona - Last Filed: 06/24/23 17:09> Laceration Laceration 1: Site: scalp Size (cm): 2 Description: linear Depth: simple, single layer Pre-repair: wound explored, irrigated extensively and deep structures intact Skin layer closed with: other ([place]) Number of sutures: 3 Critical Care <TIARRA Carmona - Last Filed: 06/24/23 17:09> Critical Care Time Critical Care Time: No
--- NOTE | 2023-06-24 16:37 | CT_ITS ---
PROCEDURE INFORMATION: Exam: CT Head Without Contrast Exam date and time: 06/24/2023 5:07 PM Age: 72 years old Clinical indication: Injury or trauma; Fall; Blunt trauma (contusions or hematomas); Additional info: Head trauma TECHNIQUE: Imaging protocol: Computed tomography of the head without contrast. Radiation optimization: All CT scans at this facility use at least one of these dose optimization techniques: automated exposure control; mA and/or kV adjustment per patient size (includes targeted exams where dose is matched to clinical indication); or iterative reconstruction. COMPARISON: No relevant prior studies available. FINDINGS: Brain: Central and peripheral atrophy noted. Old infarcts noted in the bilateral cerebellar hemispheres. No acute hemorrhage or obvious acute arterial territorial infarct. Multiple confluent and scattered hypodensities noted in the bilateral deep and periventricular white matter. Atherosclerosis noted in the bilateral cavernous carotid and vertebral arteries. No midline shift. Basal cisterns are patent. Cerebral ventricles: Ventricles are prominent in size, most likely secondary to central atrophy. Paranasal sinuses: Visualized sinuses are unremarkable. No fluid levels. Mastoid air cells: Visualized mastoid air cells are well aerated. Bones/joints: Unremarkable. No acute fracture. Soft tissues: Unremarkable. IMPRESSION: 1. No acute intracranial disease or hemorrhage. 2. No obvious acute infarct. Please note if the patient's symptoms do not improve, or worsen, consider MRI with diffusion imaging. 3. Chronic deep white matter ischemic and atrophic changes noted. Please see above. 4. Chronic bilateral cerebellar infarcts noted
[2023-06-24 17:34] VITALS: BP 127/79; PULSE 108; RESP 20; TEMP 36.6; O2SAT 93
== END 2023-06-24 17:35 | disposition home or self-care (01) ==
PROVIDERS: Emergency Provider Emergency Medicine; PCP Student in an Organized Health Care Education/Training Program
DX: S01.01XA Laceration without foreign body of scalp, initial encounter (principal); J44.9 Chronic obstructive pulmonary disease, unspecified; I11.0 Hypertensive heart disease with heart failure; I50.9 Heart failure, unspecified; I25.10 Atherosclerotic heart disease of native coronary artery without angina pectoris; E78.5 Hyperlipidemia, unspecified; Z79.01 Long term (current) use of anticoagulants; W01.198A Fall on same level from slipping, tripping and stumbling with subsequent striking against other object, initial encounter
CPT/HCPCS: 12001; 70450; 72125; 99285

== ENCOUNTER 2023-07-13 13:23 | Outpatient (CLI) | payer MEDICARE, OTHER, SELFPAY ==
[2023-07-13 13:56] LABS: Basophils # 0.2 K/mm3 (0-0.2); Basophils % 1.3 % (0.1-2.0); Eosinophils # 0.3 K/mm3 (0.0-0.4); Eosinophils % 1.4 % (0.1-12.0); Hematocrit 49.2 % (42.0-52.0); Hemoglobin 17.1 g/dL (14.1-18.0); Lymphocytes # 5.5 K/mm3 (0.7-4.5); Lymphocytes % 30.1 % (10-50); Mean Corpuscular HGB Conc 34.7 g/dL (31.8-35.4); Mean Corpuscular Hemoglobin 33.8 pg (27.0-31.2); Mean Corpuscular Volume 97.4 fl (80-94); Mean Platelet Volume 10.1 fl (7.4-10.4); Monocytes # 1.2 K/mm3 (0.1-1.0); Monocytes % 6.4 % (1.7-9.3); Neutrophils # 11.1 K/mm3 (1.8-7.8); Neutrophils % 60.8 % (37.0-80.0); Platelet Count 391 K/mm3 (142-424); Red Blood Count 5.05 M/mm3 (4.60-6.20); Red Cell Distribution Width 16.2 % (11.5-17.5); White Blood Count 18.2 K/mm3 (4.8-10.8)
[2023-07-13 14:22] LABS: MANUAL DIFFERENTIAL MANUAL DIFFERENTIAL (MANUAL DIFF)
[2023-07-13 15:53] LABS: Eosinophils % 1 % (0-3); Lymphocytes % 41 % (10-50); Monocytes % 4 % (2-9); Neutrophils % 54 % (42-76); Platelet Estimate Normal; RBC Morphology Normal; Total Cells Counted 100
== END 2023-07-13 23:59 | disposition home or self-care (01) ==
LOC: LAB 13:27
PROVIDERS: PCP Student in an Organized Health Care Education/Training Program; Visit Provider Internal Medicine Medical Oncology
DX: Z79.899 Other long term (current) drug therapy (principal)
CPT/HCPCS: 36415; 85007; 85025

== ENCOUNTER 2023-07-14 12:20 | Outpatient (CLI) | payer MEDICARE, OTHER, SELFPAY ==
[2023-07-14 12:48] LABS: PHA INR Fingerstick 1.8 (0.9-1.1)
== END 2023-07-14 12:51 ==
LOC: ACC 12:22
PROVIDERS: PCP Student in an Organized Health Care Education/Training Program; Visit Provider Student in an Organized Health Care Education/Training Program
DX: Z79.01 Long term (current) use of anticoagulants (principal); Z86.711 Personal history of pulmonary embolism; Z51.81 Encounter for therapeutic drug level monitoring
CPT/HCPCS: 85610; 99211; G0463

== ENCOUNTER 2023-08-19 09:40 | Outpatient (CLI) | payer MEDICARE, OTHER, SELFPAY ==
[2023-08-19 14:03] LABS: PHA INR Fingerstick 1.9 (0.9-1.1)
== END 2023-08-19 14:04 ==
LOC: ACC 09:41
PROVIDERS: PCP Student in an Organized Health Care Education/Training Program; Visit Provider Student in an Organized Health Care Education/Training Program
DX: Z79.01 Long term (current) use of anticoagulants (principal); Z51.81 Encounter for therapeutic drug level monitoring
CPT/HCPCS: 85610; 99211; G0463

== ENCOUNTER 2023-09-04 11:20 | Emergency (ER) | payer MEDICARE, SELFPAY ==
[2023-09-04 11:30] VITALS: BP 148/69; PULSE 61; RESP 18; TEMP 36.8; O2SAT 96; BMI 37.8
--- NOTE | 2023-09-04 11:56 | ED_ITS ---
Discharge Plan Disposition Patient Disposition: Home, Self-Care Condition: Good Prescriptions Prescriptions: New methylprednisolone 4 mg Tablets,Dose Pack 4 mg PO DIRECTED 6 Days Qty: 21 0RF Rx Instructions: Take 1 pack as directed for 6 days No Action warfarin 5 mg tablet 5 mg PO MOWEFR ipratropium-albuterol 0.5 mg-3 mg(2.5 mg base)/3 mL solution for nebulization 3 ml IH QID PRN (Reason: shortness of breath or wheezing) 90 Days Qty: 270 3RF thiamine HCl (vitamin B1) 100 mg tablet 100 mg PO DAILY triamcinolone acetonide 0.1 % ointment 1 applic topical BID Qty: 30 0RF azelastine 137 mcg (0.1 %) aerosol,spray 1 spray intranasal BID 90 Days Qty: 90 3RF Rx Instructions: administer into each nostril Anoro Ellipta 62.5-25 mcg/actuation blister with device 1 inh inhalation DAILY 90 Days Qty: 180 2RF clotrimazole 1 % cream 1 applic topical BID 28 Days Qty: 30 0RF fluticasone propionate [Flonase Allergy Relief] 50 mcg/actuation spray,suspension 2 spray intranasal DAILY 90 Days Qty: 16 3RF Rx Instructions: administer into each nostril albuterol sulfate [ProAir HFA] 90 mcg/actuation HFA aerosol inhaler 1 inh IH QID PRN (Reason: shortness of breath or wheezing) 90 Days Qty: 8.5 3RF citalopram 20 mg tablet 20 mg PO DAILY 30 Days Qty: 90 3RF levothyroxine 50 mcg tablet 50 mcg PO DAILY Qty: 90 3RF bumetanide 1 mg tablet 2 mg PO DAILY Qty: 180 3RF amlodipine 5 mg tablet 5 mg PO DAILY Qty: 30 1RF Jardiance 10 mg tablet See Rx Instructions .ROUTE .COMPLEX Qty: 30 5RF Dose Instruction: Take 1 tablet by mouth once daily Rx Instructions: Take 1 tablet by mouth once daily atorvastatin 80 mg tablet See Rx Instructions .ROUTE .COMPLEX Qty: 90 3RF Dose Instruction: Take 1 tablet by mouth once daily Rx Instructions: Take 1 tablet by mouth once daily memantine 10 mg tablet 10 mg PO BID 30 Days Qty: 60 1RF warfarin 5 mg Tablet 7.5 mg PO [facility] Referrals Follow up/Referrals: Lidya Duoglas PA [Primary Care Provider] - See instructions Activity Restrictions/Add. Instructions Additional Instructions/Restrictions: Try to identify and avoid contact with the offending substance. Try to rest with your legs elevated as much time as possible for the next few days. Continue the antibiotics and the topical steroid cream that your primary care physician prescribed. Follow up with your regular doctor. GO TO THE ER FOR ANY WORSENING SYMPTOMS OR CONCERNS Clinical Impressions Clinical Impression: Contact dermatitis, Varicose vein of leg Instructions Patient Instructions: DI for Varicose Veins, DI for Contact Dermatitis [place] [facility] [place] General Stated complaint: bulging vein on R uriostegui Mode of Arrival: Ambulatory Source of Information: Patient Limitations: No Limitations Time Seen by Provider: 09/04/23 11:50 Description of Symptoms (Recalled from Triage Doc. by RN): Pt's symptoms are bulging vein on right lower uriostegui . HEENT Symptoms (Recalled from RN notes): No Resp Symptoms (Recalled from RN notes): No Skin Symptoms (Recalled from RN notes): Yes MS Symptoms (Recalled from RN notes): No Functional Status (Recalled from RN notes): n/a History of Present Illness Provider Complaint: He is here with complaints of having a red rash on his right lower leg and having a varicose vessel that seems to be bulging there. He denies pain or tenderness at the site. He was started on antibiotics and triamcinolone topical cream by his pcp 2 days ago for the leg redness. Related Data Home Medications Medication Instructions Recorded Confirmed warfarin 5 mg tablet 5 mg PO MOWEFR Blood thinner 06/25/21 09/02/23 warfarin 5 mg tablet 7.5 mg PO SUTUTHSA Blood thinner 12/01/21 09/02/23 thiamine HCl (vitamin B1) 100 mg 100 mg PO DAILY 12/21/22 09/02/23 tablet Previous Rx's Medication Instructions Recorded azelastine 137 mcg (0.1 %) nasal 1 spray intranasal BID 90 days #90 02/17/22 spray aerosol mL albuterol sulfate 90 mcg/actuation 1 inh inhalation QID PRN shortness 08/20/22 aerosol inhaler (ProAir HFA) of breath or wheezing 90 days #8.5 grams fluticasone propionate 50 2 spray intranasal DAILY 90 days 08/20/22 mcg/actuation nasal #16 grams spray,suspension (Flonase Allergy Relief) citalopram 20 mg tablet 20 mg PO DAILY dementia 30 days 12/22/22 #90 tabs levothyroxine 50 mcg tablet 50 mcg PO DAILY . #90 tabs 12/22/22 ipratropium 0.5 mg-albuterol 3 mg 3 ml inhalation QID PRN shortness 02/15/23 (2.5 mg base)/3 mL nebulization of breath or wheezing 90 days #270 soln mL bumetanide 1 mg tablet 2 mg (2 x 1 mg) PO DAILY #180 tabs 04/13/23 amlodipine 5 mg tablet 5 mg PO DAILY . #30 tabs 04/26/23 empagliflozin 10 mg tablet See Rx Instructions .Route 05/31/23 (Jardiance) .COMPLEX #30 tabs umeclidinium 62.5 mcg-vilanterol 1 inh inhalation DAILY 90 days 05/31/23 25 mcg/actuation powdr for #180 ea inhalation (Anoro Ellipta) atorvastatin 80 mg tablet See Rx Instructions .Route 07/01/23 .COMPLEX #90 tabs clotrimazole 1 % topical cream 1 applic topical BID 4 weeks #30 08/10/23 grams memantine 10 mg tablet 10 mg PO BID dementia 30 days #60 08/25/23 tabs triamcinolone acetonide 0.1 % 1 applic topical BID #30 grams 09/02/23 topical ointment methylprednisolone 4 mg tablets in 4 mg PO DIRECTED 6 days #21 tabs 09/04/23 a dose pack Allergies Allergy/AdvReac Type Severity Reaction Status Date / Time No Known Allergies Allergy Verified 09/04/23 11:47 Worker's Comp Is this a Worker's Comp case?: No [facility] Disclaimer: The information contained in this section may have been updated after the patient was seen, as this information can be updated by other users. Medical History Sleep apnea Gall stone History of sleep apnea COPD exacerbation Allergic rhinitis Restrictive lung disease Allergic rhinitis History of smoking 30 or more pack years Dyspnea on exertion COPD (chronic obstructive pulmonary disease) Dyspnea on exertion Moderate aortic stenosis Mild aortic stenosis Pre-op evaluation HLD (hyperlipidemia) Pulmonary embolism CHF (congestive heart failure) Pulmonary hypertension HHD (hypertensive heart disease) CAD (coronary artery disease) DVT (deep venous thrombosis) Fatigue HTN (hypertension) Aortic valve stenosis Surgical History Status post arthroscopy of hip History of arthroscopic knee surgery Family History Other Stroke Social History Smoking Status: Former smoker tobacco type: cigarettes second hand exposure: No alcohol intake: never substance use type: denies use current occupational status: retired Travel in the last 8 weeks: None household members: significant other housing: house current occupational exposures/hazards: No caffeine: Yes ROS Obtained: Yes All systems reviewed & no additional complaints except as documented Constitutional Constitutional: Denies chills and Denies fever(s) Eyes Eyes: Denies eye discharge ENT Ears, Nose, Mouth, and Throat: Denies dizziness, Denies otalgia and Denies sore throat Cardiovascular Cardiovascular: Denies chest pain Respiratory Respiratory: Denies shortness of breath, Denies chest congestion, Denies cough, Denies stridor and Denies wheezing Gastrointestinal Gastrointestingal: Denies nausea or vomiting Musculoskeletal Musculoskeletal: Reports system reviewed and no additional complaints, except as documented and Denies arthralgias Integumentary/Breasts Skin/Breast: Denies rash Neurologic Neurologic: Denies dizziness and Denies paresthesias Allergic/Immunologic Allergic/Immunologic: Denies wheezing Physical Exam General General appearance: alert and in no apparent distress Head Head exam: atraumatic, normocephalic and normal inspection Eye Eye exam: Present normal appearance, PERRL and EOMI ENT ENT exam: Present normal exam, normal oropharynx, mucous membranes moist, TM's normal bilaterally and normal external ear exam Neck Neck exam: Present normal inspection, full ROM and trachea midline; Absent meningismus or lymphadenopathy Chest Chest inspection: Present normal inspection and symmetric chest wall rise; Absent tenderness Respiratory Respiratory exam: Present normal lung sounds bilaterally; Absent respiratory distress Cardiovascular Cardiovascular exam: Present regular rate and normal rhythm; Absent JVD Abdominal Exam Abdominal exam: Present soft and normal bowel sounds; Absent distention, tenderness or guarding Extremities Exam Extremities exam: Present normal inspection, full ROM and normal capillary refill; Absent calf tenderness Back Exam Back exam: Present normal inspection; Absent tenderness Neurological Exam Neurological exam: Present alert and oriented X3 Psychiatric Psychiatric exam: Present normal affect and normal mood Skin Skin exam: Present rash (there are maculopapular lesions on the front of his right uriostegui area. no open wound, no drainage, no swelling, no bulging veins noted but there is a varicose vein noted in this area. ) Lymphatic Lymphatic Findings: no adenopathy Medical Decision Making Medical Records Medical records reviewed: No I reviewed the patient's medical records. Win Inquiry Pt receiving controlled substance: No Vital Signs: 09/04/23 11:30 Temperature 98.2 F Temperature Source Oral Pulse Rate [Right Radial] 61 Respiratory Rate 18 Blood Pressure [Right Arm] 148/69 H Blood Pressure Mean [Right Arm] 95 Blood Pressure Source [Right Arm] Automatic Cuff Blood Pressure Position [Right Arm] Sitting 02 Sat by Pulse Oximetry 96 Oxygen Delivery Method Room Air
[2023-09-04 12:28] VITALS: BP 148/69; PULSE 61; RESP 18; TEMP 36.8; O2SAT 95
== END 2023-09-04 12:28 | disposition home or self-care (01) ==
PROVIDERS: Emergency Provider Nurse Practitioner Family; PCP Student in an Organized Health Care Education/Training Program
DX: I83.91 Asymptomatic varicose veins of right lower extremity (principal); L25.9 Unspecified contact dermatitis, unspecified cause
CPT/HCPCS: 99204; 99212; G0463

== ENCOUNTER 2023-09-09 10:33 | Outpatient (CLI) | payer MEDICARE, SELFPAY ==
[2023-09-09 11:33] LABS: PHA INR Fingerstick 2.5 (0.9-1.1)
== END 2023-09-09 11:34 ==
LOC: ACC 10:35
PROVIDERS: PCP Student in an Organized Health Care Education/Training Program; Visit Provider Student in an Organized Health Care Education/Training Program
DX: Z79.01 Long term (current) use of anticoagulants (principal); Z51.81 Encounter for therapeutic drug level monitoring; Z86.711 Personal history of pulmonary embolism
CPT/HCPCS: 85610; 99211; G0463

== ENCOUNTER 2023-09-20 09:51 | Outpatient (CLI) | payer MEDICARE, SELFPAY ==
[2023-09-20 18:48] LABS: Basophils # 0.2 K/mm3 (0-0.2); Basophils % 1.3 % (0.1-2.0); Eosinophils # 0.3 K/mm3 (0.0-0.4); Eosinophils % 2.9 % (0.1-12.0); Hematocrit 49.9 % (42.0-52.0); Hemoglobin 17.2 g/dL (14.1-18.0); Lymphocytes # 3.2 K/mm3 (0.7-4.5); Lymphocytes % 26.7 % (10-50); Mean Corpuscular HGB Conc 34.6 g/dL (31.8-35.4); Mean Corpuscular Volume 98.3 fl (80-94); Mean Platelet Volume 10.5 fl (7.4-10.4); Monocytes # 0.8 K/mm3 (0.1-1.0); Monocytes % 6.8 % (1.7-9.3); Neutrophils # 7.5 K/mm3 (1.8-7.8); Neutrophils % 62.4 % (37.0-80.0); Platelet Count 333 K/mm3 (142-424); Red Blood Count 5.07 M/mm3 (4.60-6.20); Red Cell Distribution Width 15.1 % (11.5-17.5); White Blood Count 11.9 K/mm3 (4.8-10.8)
[2023-09-20 18:56] LABS: Alanine Aminotransferase 30 U/L (12-78); Albumin/Globulin Ratio 1.5 (1.1-1.8); Alkaline Phosphatase 104 U/L (38-126); Anion Gap 13.8 mEq/L (5-15); Aspartate Amino Transferase 33 U/L (17-59); Bilirubin,Total 1.2 mg/dl (0.2-1.3); Blood Urea Nitrogen 27 mg/dl (9-20); Calcium 9.5 mg/dl (8.4-10.2); Carbon Dioxide 30 mmol/L (22.0-30.0); Chloride 99 mmol/L (98-107); Estimated Glomerular Filt Rate 60 ml/min (>60); GFR (African American) 72 ML/MIN (>60); Globulin 2.6 g/dL (1.3-3.2); Glucose 91 mg/dl (74-100); Potassium 3.8 mmoL/L (3.5-5.1); Sodium 139 mmol/L (136-145); Total Protein,Serum 6.6 g/dl (6.3-8.2)
[2023-09-20 19:02] LABS: C-Reactive Protein 10.5 mg/L (0-4)
[2023-09-20 20:04] LABS: Erythrocyte Sedimentation Rate 14 mm/hr (0-20)
[2023-09-22 15:22] LABS: Anti-Centromere B Antibodies <0.2 AI (0.0-0.9); Anti-DNA (DS) Ab Qn 2 IU/mL (0-9); Anti-Jo-1 <0.2 AI (0.0-0.9); Anti-Smith Antibody <0.2 AI (0.0-0.9); Antichromatin Antibodies <0.2 AI (0.0-0.9); Antiscleroderma-70 Antibodies <0.2 AI (0.0-0.9); Sjogren's Anti-SS-A <0.2 AI (0.0-0.9); Sjogren's Anti-SS-B <0.2 AI (0.0-0.9)
== END 2023-09-20 23:59 | disposition home or self-care (01) ==
LOC: LAB.DROPOF 09-21 09:51
PROVIDERS: PCP Student in an Organized Health Care Education/Training Program; Visit Provider Student in an Organized Health Care Education/Training Program
DX: R21 Rash and other nonspecific skin eruption (principal)
CPT/HCPCS: 80053; 85025; 85651; 86140; 86225; 86235

== ENCOUNTER 2023-09-28 13:06 | Outpatient (CLI) | payer MEDICARE, SELFPAY ==
--- NOTE | 2023-09-28 13:06 | US_ITS ---
FINAL REPORT CLINICAL HISTORY: diminished pulses rash x2 weeks FINDINGS: Ankle brachial indices were obtained. The right ARTUR is 1.4. The left ARTUR is 1.4. IMPRESSION: ABIs within normal limits. Reviewed, Interpreted and Dictated by Elbert Blank III, MD Transcribed by Aleena Caruso Authenticated and [facility]
== END 2023-09-28 23:59 | disposition home or self-care (01) ==
LOC: RT 13:06
PROVIDERS: PCP Student in an Organized Health Care Education/Training Program; Visit Provider Student in an Organized Health Care Education/Training Program
DX: R09.89 Other specified symptoms and signs involving the circulatory and respiratory systems (principal)
CPT/HCPCS: 93923

== ENCOUNTER 2023-10-01 11:30 | Outpatient (CLI) | payer MEDICARE, SELFPAY ==
[2023-10-04 14:10] LABS: Anti-Centromere B Antibodies <0.2 AI (0.0-0.9); Anti-DNA (DS) Ab Qn 3 IU/mL (0-9); Anti-Jo-1 <0.2 AI (0.0-0.9); Anti-Smith Antibody <0.2 AI (0.0-0.9); Antichromatin Antibodies <0.2 AI (0.0-0.9); Antiscleroderma-70 Antibodies 0.2 AI (0.0-0.9); Sjogren's Anti-SS-A <0.2 AI (0.0-0.9); Sjogren's Anti-SS-B <0.2 AI (0.0-0.9)
== END 2023-10-01 23:59 | disposition home or self-care (01) ==
LOC: LAB.DROPOF 10-04 11:31
PROVIDERS: PCP Student in an Organized Health Care Education/Training Program; Visit Provider Student in an Organized Health Care Education/Training Program
DX: R76.8 Other specified abnormal immunological findings in serum (principal)
CPT/HCPCS: 86225; 86235

== ENCOUNTER 2023-10-07 11:16 | Outpatient (CLI) | payer MEDICARE, OTHER, SELFPAY ==
[2023-10-07 12:33] LABS: Erythrocyte Sedimentation Rate 20 mm/hr (0-20)
[2023-10-07 12:54] LABS: C-Reactive Protein 7.7 mg/L (0-4)
[2023-10-13 16:43] LABS: Strongyloides IgG Antibody Negative (Negative)
== END 2023-10-07 23:59 | disposition home or self-care (01) ==
LOC: LAB 11:19
PROVIDERS: PCP Student in an Organized Health Care Education/Training Program; Visit Provider Internal Medicine Pulmonary Disease
DX: R06.09 Other forms of dyspnea (principal); D72.10 Eosinophilia, unspecified; J84.9 Interstitial pulmonary disease, unspecified
CPT/HCPCS: 36415; 85651; 86140; 86682

== ENCOUNTER 2023-10-08 06:54 | Outpatient (CLI) | payer MEDICARE, OTHER, SELFPAY ==
--- NOTE | 2023-10-08 07:01 | CT_ITS ---
FINAL REPORT CLINICAL HISTORY: SOB HIGH RESOLUTION CHEST X 3 COMPARISON: April 22, 2023 FINDINGS: HIGH-RESOLUTION CT CHEST TECHNIQUE: Thin section axial CT using high resolution technique. Images were performed prone and supine with inspiration and expiration. Routine imaging was also supplemented with the high-resolution images. FINDINGS: No acute lung disease is present . No bronchiectasis is present. There is no evidence of interstitial lung disease. Atelectasis is seen involving the posterior aspect of the lingula. No pleural or pericardial effusion is seen . Right posterior paratracheal lymphadenopathy measures 15 mm, unchanged. There is azygoesophageal recess lymphadenopathy measuring up to 18 mm, unchanged. Upper abdomen shows a dominant large gallstone. There is significant gynecomastia. IMPRESSION: No evidence of diffuse interstitial lung disease or acute lung disease. This study was performed using automated techniques to achieve radiation exposure as low as reasonably achievable Authenticated and [facility]
== END 2023-10-08 23:59 | disposition home or self-care (01) ==
LOC: RAD 06:55
PROVIDERS: Visit Provider Internal Medicine Pulmonary Disease
DX: J84.9 Interstitial pulmonary disease, unspecified (principal); Z87.891 Personal history of nicotine dependence
CPT/HCPCS: 71250

== ENCOUNTER 2023-10-15 09:55 | Outpatient (CLI) | payer MEDICARE, OTHER, SELFPAY ==
--- NOTE | 2023-10-15 10:00 | CA_ITS ---
APPROVED REPORT EXAM: Comprehensive 2D, Doppler, and color-flow Echocardiogram Communications Equipment Installer: Melissa Paez RDCS Ht: 5 ft 6 in Wt: 265lbs BSA: 2.25 BP: 137/76 mmHg Indications: SOA,,CHF,ABN EKG,CAD 2D Dimensions Left Atrium 4.90 cm M: 3.0 - 4.0 LA Volume 123.50 mL LVOT 2.99 cm (M/F) 1.5-2.5 LA Volume Index 54.65 mL/m2 (M/F) 16-34 M-Mode Dimensions RVDd 1.55 cm (0.9-2.6) LVDd 6.76 cm (3.5-5.7) Ao Diam 3.86 cm (2.0-3.7) LVDs 4.60 cm (3.5-5.7) IVSd 1.41 cm (0.6-1.1) PWd 1.55 cm (0.6-1.1) EF (Teich) 58.80% FS 32.00% EDV (Teich) 236.10 mL TAPSE 1.63 (<1.7) ESV (Teich) 97.30 mL LV Diastology E Decel Time 328 (160-240 msec) E/A Ratio 0.6 MED E' 4.3 (>= 7 cm/sec) E'/MED E' Ratio 9.63 (<= 14) LAT E' 4.5 (>= 10 cm/sec) E/LAT E' Ratio 9.20 (<= 14) Aortic Valve LVOT Max 85.0 (70-110 cm/s) GUIDO Index 0.97 cm2/m2 LVOT VTI 18.00 cm AoV Peak Srinivas. 302.0 (50-130 cm/s) AI PHT 496.00 ms AO Mean GR. 17.90 (<5 mmHg) AO VTI 57.9 (18-25 cm) GUIDO (VTI) 2.18 (2.5-4.5 cm2) Mitral Valve MV E Max Srinivas. 41.0 (40-130 cm/s) MV A Velocity 67.0 (40-130 cm/s) E/A Ratio 0.62 MV Decel. Time 328 (160-240 ms) Left Ventricle The left ventricle is normal size. The left ventricular systolic function is normal. The left ventricular ejection fraction is within the normal range. There is increased LV wall thickness. There is normal LV segmental wall motion. Diastolic function is indeterminate. LVEF is 55%. Right Ventricle The right ventricle is normal size. The right ventricular systolic function is normal. Atria Left atrium is moderately dilated. Right atrium is moderately dilated. There is no Doppler evidence of interatrial shunt. Aortic Valve The aortic valve is moderately thickened. Moderate aortic stenosis. GUIDO by continuity equation is 1.2 cm???. Peak velocity 3.1 m/s. Mean AV gradient 18 mmHg. Max AV gradient 37 mmHg. Mild aortic regurgitation. Mitral Valve The mitral valve leaflets are mildly thickened. Trace mitral regurgitation. No evidence of mitral valve stenosis. Tricuspid Valve The tricuspid valve leaflets are thin and pliable. Trace tricuspid regurgitation. There is insufficient TR jet to estimate RVSP. Pulmonic Valve The pulmonary valve is normal in structure. Trace pulmonic regurgitation. The ascending aorta is not well-visualized. Great Vessels The aortic root is normal in size. IVC is normal in size and collapses >50% with inspiration. Pericardium There is no pericardial effusion. Epicardial fat pad is noted. Other Information Study Quality: Fair Conclusion Normal biventricular systolic function. Biatrial dilation. Moderate (GUIDO by continuity equation is 1.2 cm???. Peak velocity 3.1 m/s. Mean AV gradient 18 mmHg. Max AV gradient 37 mmHg). Mild AI. Compared to prior study from 04/2023, there are overall no significant changes to the severity of AI or . Serial TTE evaluations are recommended. Electronically signed by : Yara Delatorre MD 10/17/2023 23:37:25
== END 2023-10-15 23:59 | disposition home or self-care (01) ==
LOC: RT 09:56
PROVIDERS: Visit Provider Physician Assistant
DX: R06.02 Shortness of breath (principal); J84.9 Interstitial pulmonary disease, unspecified
CPT/HCPCS: 93306

== ENCOUNTER 2023-10-18 09:02 | Outpatient (CLI) | payer MEDICARE, OTHER, SELFPAY ==
--- NOTE | 2023-10-18 09:07 | XR_ITS ---
FINAL REPORT CLINICAL HISTORY: left shoulder pain COMPARISON: None FINDINGS: 2 views of the left shoulder were obtained. There is no prior exam for comparison. There is no fracture or dislocation. Degenerative joint disease is present involving both the acromioclavicular and glenohumeral joints. Soft tissues are normal. IMPRESSION: No acute osseous abnormality of the left shoulder. Degenerative joint disease as described. Reviewed, Interpreted and Dictated by Samina Matthews MD Transcribed by Martha Calzada Authenticated and [facility]
== END 2023-10-18 23:59 | disposition home or self-care (01) ==
LOC: RAD 09:03
PROVIDERS: PCP Student in an Organized Health Care Education/Training Program; Visit Provider Physician Assistant Surgical
DX: M25.512 Pain in left shoulder (principal)
CPT/HCPCS: 73030

== ENCOUNTER 2023-10-21 10:38 | Outpatient (CLI) | payer MEDICARE, SELFPAY ==
[2023-10-21 12:13] LABS: PHA INR Fingerstick 7.7 (0.9-1.1)
== END 2023-10-21 12:16 ==
LOC: ACC 10:41
PROVIDERS: PCP Student in an Organized Health Care Education/Training Program; Visit Provider Student in an Organized Health Care Education/Training Program
DX: Z79.01 Long term (current) use of anticoagulants (principal); Z86.718 Personal history of other venous thrombosis and embolism
CPT/HCPCS: 36415; 85610; 99211; G0463

== ENCOUNTER 2023-10-25 11:22 | Outpatient (CLI) | payer MEDICARE, SELFPAY ==
[2023-10-25 12:38] LABS: PHA INR Fingerstick 1.4 (0.9-1.1)
== END 2023-10-25 12:45 ==
LOC: ACC 11:23
PROVIDERS: PCP Student in an Organized Health Care Education/Training Program; Visit Provider Student in an Organized Health Care Education/Training Program
DX: Z79.01 Long term (current) use of anticoagulants (principal); I48.91 Unspecified atrial fibrillation
CPT/HCPCS: 85610; 99211; G0463

== ENCOUNTER 2023-11-02 09:44 | Outpatient (CLI) | payer MEDICARE, SELFPAY ==
[2023-11-02] MEDS: ALBUTEROL 0.083% 2.5 MG/3 ML NEB IH (10:22)
[2023-11-02 11:00] LABS: 25-OH Vitamin D, Total 22.8 ng/mL (30-100)
--- NOTE | 2023-11-02 15:21 | MR_ITS ---
FINAL REPORT CLINICAL HISTORY: Lt Shoulder Pain COMPARISON: None FINDINGS: Multiplanar MR imaging of the left shoulder was performed without contrast. There is motion on all sequences which severely limits overall image quality. Postoperative changes are noted in the humeral head. There are complete tears of the distal supraspinatus and infraspinatus tendons with retraction to the medial humeral head. There is a moderate full-thickness tear of the superior distal subscapularis tendon. There is superior subluxation of the humeral head, moderate degenerative change of the acromioclavicular joint, and a moderate amount of fluid in the glenohumeral joint and the subacromial/subdeltoid bursa. Mild glenohumeral degenerative changes present. The glenoid labrum is not well-visualized. A posterior labral tear is not excluded. The LHBT is not well-seen but may be torn. There is no evidence of fracture or dislocation. There is severe supraspinatus and moderate infraspinatus and subscapularis muscular atrophy. There is no evidence of soft tissue mass. IMPRESSION: Exam severely limited by motion. Complete tears of the distal supraspinatus and infraspinatus tendons with retraction to the medial humeral head. There is severe supraspinatus and moderate infraspinatus muscular atrophy. There is also a partial full-thickness tear of the superior distal subscapularis tendon, with moderate subscapularis muscular atrophy. Posterior labrum is not well-seen but a posterior labral tear is not excluded. Reviewed, Interpreted and Dictated by Elbert Blank III, MD Transcribed by Martha Calzada Authenticated and [facility]
[2023-11-09 04:41] LABS: PTH Related Peptide < 2.0 pmol/L (.)
== END 2023-11-02 23:59 | disposition home or self-care (01) ==
LOC: RT 09:46
PROVIDERS: Internal Medicine Nephrology; PCP Student in an Organized Health Care Education/Training Program; Visit Provider Internal Medicine Pulmonary Disease
DX: I12.9 Hypertensive chronic kidney disease with stage 1 through stage 4 chronic kidney disease, or unspecified chronic kidney disease (principal); N18.31 Chronic kidney disease, stage 3a; M75.121 Complete rotator cuff tear or rupture of right shoulder, not specified as traumatic; R06.09 Other forms of dyspnea; E66.9 Obesity, unspecified; Z68.37 Body mass index [BMI] 37.0-37.9, adult; Z87.891 Personal history of nicotine dependence
CPT/HCPCS: 36415; 73221; 82306; 82397; 84156; 94060; 94618; J7613

== ENCOUNTER 2023-11-08 09:47 | Outpatient (CLI) | payer MEDICARE, SELFPAY ==
[2023-11-08 10:57] LABS: PHA INR Fingerstick 2.8 (0.9-1.1)
== END 2023-11-08 11:04 ==
LOC: ACC 09:47
PROVIDERS: PCP Student in an Organized Health Care Education/Training Program; Visit Provider Student in an Organized Health Care Education/Training Program
DX: Z79.01 Long term (current) use of anticoagulants (principal); I48.91 Unspecified atrial fibrillation
CPT/HCPCS: 85610; 99211; G0463

== ENCOUNTER 2023-11-10 12:16 | Emergency (ER) | payer MEDICARE, SELFPAY ==
[2023-11-10 12:30] VITALS: BP 157/77; PULSE 71; RESP 20; TEMP 37.1; O2SAT 94; BMI 38.5
--- NOTE | 2023-11-10 12:45 | EXP.UTC ---
Discharge Plan Disposition Patient Disposition: Home, Self-Care Condition: Good Prescriptions Prescriptions: No Action warfarin 5 mg tablet 5 mg PO MOWEFR ipratropium-albuterol 0.5 mg-3 mg(2.5 mg base)/3 mL solution for nebulization 3 ml IH QID PRN (Reason: shortness of breath or wheezing) 90 Days Qty: 270 3RF thiamine HCl (vitamin B1) 100 mg tablet 100 mg PO DAILY Trelegy Ellipta 100-62.5-25 mcg blister with device 1 inh inhalation DAILY 90 Days Qty: 90 2RF prednisone 20 mg tablet See Rx Instructions .Route .COMPLEX Qty: 45 0RF Rx Instructions: Take 40mg (2 tab) oral once daily for 10 days followed by 20mg (1 tabs) oral once daily for 10 days followed by 10mg(half tab) oral once daily for 10 days then stop taking prednisone. triamcinolone acetonide 0.1 % ointment 1 applic topical BID Qty: 30 0RF azelastine 137 mcg (0.1 %) aerosol,spray 1 spray intranasal BID 90 Days Qty: 90 3RF Rx Instructions: administer into each nostril mupirocin 2 % ointment topical Patient Comments: APPLY A SMALL AMOUNT OF OINTMENT TOPICALLY TO AFFECTED AREA TWICE DAILY FOR 10 DAYS levocetirizine 5 mg tablet 5 mg PO DAILY Patient Comments: TAKE 1 TABLET BY MOUTH ONCE DAILY DIRECTED FOR ALLERGIES fluticasone propionate [Flonase Allergy Relief] 50 mcg/actuation spray,suspension 2 spray intranasal DAILY 90 Days Qty: 16 3RF Rx Instructions: administer into each nostril albuterol sulfate [ProAir HFA] 90 mcg/actuation HFA aerosol inhaler 1 inh IH QID PRN (Reason: shortness of breath or wheezing) 90 Days Qty: 8.5 3RF citalopram 20 mg tablet 20 mg PO DAILY 30 Days Qty: 90 3RF levothyroxine 50 mcg tablet 50 mcg PO DAILY Qty: 90 3RF bumetanide 1 mg tablet 2 mg PO DAILY Qty: 180 3RF Jardiance 10 mg tablet See Rx Instructions .ROUTE .COMPLEX Qty: 30 5RF Dose Instruction: Take 1 tablet by mouth once daily Rx Instructions: Take 1 tablet by mouth once daily atorvastatin 80 mg tablet See Rx Instructions .ROUTE .COMPLEX Qty: 90 3RF Dose Instruction: Take 1 tablet by mouth once daily Rx Instructions: Take 1 tablet by mouth once daily nystatin 100,000 unit/gram ointment 1 applic topical BID Qty: 30 1RF clotrimazole 1 % cream 1 applic topical BID 28 Days Qty: 30 0RF memantine 10 mg tablet 10 mg PO BID 30 Days Qty: 60 1RF warfarin 5 mg Tablet 7.5 mg PO BERTHAUTH Referrals Follow up/Referrals: Lidya Douglas PA [Primary Care Provider] - See instructions Activity Restrictions/Add. Instructions Additional Instructions/Restrictions: *Monitor Temp, Over the counter Motrin or Tylenol as directed/as needed Tylenol every 4 hours and Motrin every 6 hours (as long as your family doctor has told you that you can take it) for fever or pain. and straight to ER if unable to lower temp less than 101.0 after medication given *Warm fluids like tea with honey may help to soothe the throat? *Sleep elevated *Humidifier/Vaporizer Follow up IMMEDIATELY for new or worsening symptoms or no Noticeable improvement over the next 48-72 hours. 911 for difficulty breathing or swallowing You were tested for today for COVID19 your test result should be back in the next 24 hours, you may check your results on the [facility] later today and they should be on there Clinical Impressions Clinical Impression: Exposure to COVID-19 virus Instructions Patient Instructions: COVID-19 Viral Test, DI for COVID-19 (Suspected or Confirmed ) Print Language Print Language: Citizen Of [place] Discharge ED Provider: Paradise Aviles [facility] [place] HPI General Stated complaint: covid test/no symptoms Mode of Arrival: Ambulatory Source of Information: Patient Limitations: No Limitations Time Seen by Provider: 11/10/23 12:45 Description of Symptoms (Recalled from Triage Doc. by RN): PATIENT REQUESTING COVID TEST, DENIES SYMPTOMS HEENT Symptoms (Recalled from RN notes): No Resp Symptoms (Recalled from RN notes): No Skin Symptoms (Recalled from RN notes): No MS Symptoms (Recalled from RN notes): No Functional Status (Recalled from RN notes): WNL History of Present Illness Provider Complaint: Patient states that he has been around family member that tested positive for COVID states he isnt having any symptoms but he wanted to get tested Related Data Home Medications ?Medication ?Instructions ?Recorded ?Confirmed warfarin 5 mg tablet 5 mg PO MOWEFR Blood thinner 06/25/21 10/18/23 warfarin 5 mg tablet 7.5 mg PO BERTHAUTHSA Blood thinner 12/01/21 10/18/23 thiamine HCl (vitamin B1) 100 mg 100 mg PO DAILY 12/21/22 10/18/23 tablet levocetirizine 5 mg tablet 5 mg PO DAILY 10/11/23 10/18/23 mupirocin 2 % topical ointment topical 10/11/23 10/18/23 Previous Rx's ?Medication ?Instructions ?Recorded azelastine 137 mcg (0.1 %) nasal 1 spray intranasal BID 90 days #90 02/17/22 spray mL albuterol sulfate 90 mcg/actuation 1 inh inhalation QID PRN shortness 08/20/22 aerosol inhaler (ProAir HFA) of breath or wheezing 90 days #8.5 grams fluticasone propionate 50 2 spray intranasal DAILY 90 days 08/20/22 mcg/actuation nasal #16 grams spray,suspension (Flonase Allergy Relief) citalopram 20 mg tablet 20 mg PO DAILY dementia 30 days 12/22/22 #90 tabs levothyroxine 50 mcg tablet 50 mcg PO DAILY . #90 tabs 12/22/22 ipratropium 0.5 mg-albuterol 3 mg 3 ml inhalation QID PRN shortness 02/15/23 (2.5 mg base)/3 mL nebulization of breath or wheezing 90 days #270 soln mL bumetanide 1 mg tablet 2 mg (2 x 1 mg) PO DAILY #180 tabs 04/13/23 empagliflozin 10 mg tablet See Rx Instructions .Route 05/31/23 (Jardiance) .COMPLEX #30 tabs atorvastatin 80 mg tablet See Rx Instructions .Route 07/01/23 .COMPLEX #90 tabs triamcinolone acetonide 0.1 % 1 applic topical BID #30 grams 09/02/23 topical ointment nystatin 100,000 unit/gram topical 1 applic topical BID #30 grams 09/27/23 ointment fluticasone fur. 100 mcg-umeclid 1 inh inhalation DAILY 90 days #90 10/07/23 62.5 mcg-vilant 25 mcg ea inhalat.powder (Trelegy Ellipta) prednisone 20 mg tablet See Rx Instructions .Route 10/07/23 .COMPLEX #45 tabs clotrimazole 1 % topical cream 1 applic topical BID 4 weeks #30 10/11/23 grams memantine 10 mg tablet 10 mg PO BID dementia 30 days #60 10/29/23 tabs Allergies Allergy/AdvReac Type Severity Reaction Status Date / Time No Known Allergies Allergy Verified 10/18/23 10:01 Worker's Comp Is this a Worker's Comp case?: No [facility] Disclaimer: The information contained in this section may have been updated after the patient was seen, as this information can be updated by other users. Medical History ILD (interstitial lung disease) Sleep apnea Gall stone History of sleep apnea COPD exacerbation Allergic rhinitis Restrictive lung disease Allergic rhinitis History of smoking 30 or more pack years Dyspnea on exertion COPD (chronic obstructive pulmonary disease) Dyspnea on exertion Moderate aortic stenosis Mild aortic stenosis Pre-op evaluation HLD (hyperlipidemia) Pulmonary embolism CHF (congestive heart failure) Pulmonary hypertension HHD (hypertensive heart disease) CAD (coronary artery disease) DVT (deep venous thrombosis) Fatigue HTN (hypertension) Aortic valve stenosis Surgical History Status post arthroscopy of hip History of arthroscopic knee surgery Family History Other Stroke Social History Smoking Status: Former smoker tobacco type: cigarettes second hand exposure: No alcohol intake: never substance use type: denies use current occupational status: retired Travel in the last 8 weeks: None household members: significant other housing: house current occupational exposures/hazards: No caffeine: Yes ROS Obtained: Yes All systems reviewed & no additional complaints except as documented and Yes Systems reviewed as appropriate & no additional complaints except as documented Constitutional Constitutional: Reports system reviewed and no additional complaints, except as documented and Reports as per HPI ENT Ears, Nose, Mouth, and Throat: Reports system reviewed and no additional complaints, except as documented and Reports as per HPI Cardiovascular Cardiovascular: Reports system reviewed and no additional complaints, except as documented and Reports as per HPI Respiratory Respiratory: Reports system reviewed and no additional complaints, except as documented and Reports as per HPI Physical Exam General General appearance: alert and in no apparent distress ENT ENT exam: Present mucous membranes moist Respiratory Respiratory exam: Present normal lung sounds bilaterally; Absent respiratory distress or wheezes Cardiovascular Cardiovascular exam: Present regular rate, normal rhythm and normal heart sounds Neurological Exam Neurological exam: Present alert, oriented X3 and normal gait Medical Decision Making Win Inquiry Pt receiving controlled substance: No Win was queried for this patient: No Vital Signs: 11/10/23 12:30 Temperature 98.7 F Temperature Source Oral Pulse Rate [Left Brachial] 71 Respiratory Rate 20 Blood Pressure [Left Arm] 157/77 H Blood Pressure Mean [Left Arm] 103 02 Sat by Pulse Oximetry 94 L Oxygen Delivery Method Room Air Orders (Tests/Meds): ORDERS Category Date Time Status Covid-19 Nasal PCR ([facility]) Routine Lab 11/10/23 12:29 Received
[2023-11-10 12:55] VITALS: BP 157/77; PULSE 71; RESP 20; TEMP 37.1; O2SAT 94
== END 2023-11-10 12:58 | disposition home or self-care (01) ==
PROVIDERS: Emergency Provider Nurse Practitioner; PCP Student in an Organized Health Care Education/Training Program
DX: Z20.822 Contact with and (suspected) exposure to COVID-19 (principal)
CPT/HCPCS: 87635; 99212; G0463

== ENCOUNTER 2023-11-15 12:34 | Outpatient (CLI) | payer MEDICARE, SELFPAY ==
[2023-11-15 12:43] LABS: Microscopic, Urine URINE MICROSCOPIC (MICROSCOPIC)
[2023-11-15 12:59] LABS: Hematocrit 47.5 % (42.0-52.0); Mean Corpuscular HGB Conc 33.7 g/dL (31.8-35.4); Mean Corpuscular Hemoglobin 33.9 pg (27.0-31.2); Mean Corpuscular Volume 100.5 fl (80-94); Platelet Count 392 K/mm3 (142-424); Red Blood Count 4.72 M/mm3 (4.60-6.20); Red Cell Distribution Width 15.9 % (11.5-17.5); White Blood Count 13.3 K/mm3 (4.8-10.8)
[2023-11-15 13:06] LABS: Albumin Level 4.3 g/dl (3.5-5.0); Appearance,Urine CLEAR (Clear); Bilirubin,Urine Negative (Negative); Blood, Urine Negative (Negative); Chloride 102 mmol/L (98-107); Color,Urine YELLOW (Yellow); Glucose,Urine (UA) Negative (Negative); Ketones,Urine Negative (Negative); Leukocyte Esterase,Urine Negative (Negative); Nitrate,Urine Negative (Negative); Potassium 3.7 mmoL/L (3.5-5.1); Protein,Urine Negative (Negative); Sodium 138 mmol/L (136-145)
[2023-11-15 13:08] LABS: Blood Urea Nitrogen 17 mg/dl (9-20)
[2023-11-15 13:09] LABS: Alanine Aminotransferase 31 U/L (12-78); Albumin/Globulin Ratio 1.4 (1.1-1.8); Alkaline Phosphatase 105 U/L (38-126); Anion Gap 8.7 mEq/L (5-15); Aspartate Amino Transferase 35 U/L (17-59); Bilirubin,Total 1.6 mg/dl (0.2-1.3); Calcium 9.1 mg/dl (8.4-10.2); Carbon Dioxide 31 mmol/L (22.0-30.0); Estimated Glomerular Filt Rate 66 ml/min (>60); GFR (African American) 80 ML/MIN (>60); Globulin 3.1 g/dL (1.3-3.2); Glucose 95 mg/dl (74-100); Total Protein,Serum 7.4 g/dl (6.3-8.2)
[2023-11-15 13:32] LABS: Squamous Epithelial Cell,Urine Occasional #/hpf (0-5)
[2023-11-15 13:40] LABS: Thyroid Stimulating Hormone 1.76 uIU/mL (0.465-4.68)
[2023-11-15 13:44] LABS: Uric Acid 7.9 mg/dl (3.5-8.5)
== END 2023-11-15 23:59 | disposition home or self-care (01) ==
LOC: LAB 12:35
PROVIDERS: PCP Student in an Organized Health Care Education/Training Program; Visit Provider Internal Medicine Nephrology
DX: N18.31 Chronic kidney disease, stage 3a (principal); I12.9 Hypertensive chronic kidney disease with stage 1 through stage 4 chronic kidney disease, or unspecified chronic kidney disease
CPT/HCPCS: 36415; 80053; 81001; 84443; 84550; 85014; 85018; 85048; 85049

== ENCOUNTER 2023-12-01 11:08 | Outpatient (CLI) | payer MEDICARE, SELFPAY ==
[2023-12-01 13:15] LABS: PHA INR Fingerstick 2.5 (0.9-1.1)
== END 2023-12-01 14:07 ==
LOC: ACC 11:09
PROVIDERS: PCP Student in an Organized Health Care Education/Training Program; Visit Provider Student in an Organized Health Care Education/Training Program
DX: Z79.01 Long term (current) use of anticoagulants (principal); Z86.718 Personal history of other venous thrombosis and embolism
CPT/HCPCS: 85610; 99211; G0463

== ENCOUNTER 2023-12-27 08:09 | Day surgery (SDC) | payer MEDICARE, SELFPAY ==
[2023-12-27] VITALS (10 sets, daily range): BP systolic 101–174; BP diastolic 61–81; PULSE 60–80; RESP 18–20; TEMP 36.6; O2SAT 91–99; BMI 39.4
--- NOTE | 2023-12-27 07:06 | IR_ITS ---
APPROVED REPORT Patient Location: Outpatient Laundry Operator Wash Room: CARLEY Mcclure RT (R) PROCEDURES Left heart catheterization Left ventriculogram Selective coronary angiogram INDICATION Abnormal stress test, Preoperative evaluation, Informed consent was obtained prior to the procedure. COMPLICATIONS none Estimated Blood Loss: less than 10ml TECHNIQUE One percent lidocaine used to anesthetize the right anterior aspect of the wrist. The right radial artery was accessed via the Seldinger technique. A 6 Yoruba sheath was placed in the right radial artery. 2.5 mg of Verapamil, 800 mcg of nitroglycerin, 1mg Lidocaine and 5000 U Heparin were given through the arterial sheath. The papa catheter was also used to perform left heart catheterization, left ventriculogram and selective coronary angiogram. At the end of the procedure the sheath was removed good hemostasis was achieved using Traclet band, patient was transferred to the postop holding area in stable condition. ANGIOGRAPHIC RESULTS The left main artery Normal The left anterior descending artery Has proximal tandem 30% stenoses with a mid vessel 10 to 20% stenosis The circumflex artery Is dominant and has diffuse 10% luminal irregularities The right coronary artery Vestigial and normal The WOODS ventriculogram reveals Normal 65% The left ventricular end-diastolic pressure Severely elevated at 35 to 40 mmHg There is a peak to peak 40 mm trans aortic valve gradient IMPRESSION Mild to moderate proximal LAD disease as described above Normal ejection fraction Elevated LVEDP consistent with HFpEF Moderate aortic stenosis PLAN 1. LDL less than 55 to proceed with high intensity statin 2. Patient is an acceptable risk to proceed with shoulder surgery. I would caution the use of heavy perioperative IV fluids 3. Recommend formal echocardiogram to better evaluate aortic stenosis 4. Continue treatment of hypertension and diastolic dysfunction 5. Medical management for coronary disease Electronically signed by : Rodrigo Martinez MD 12/27/2023 12:58:33
[2023-12-27 09:13] LABS: Chloride 101 mmol/L (98-107)
[2023-12-27 09:14] LABS: Basophils # 0.2 K/mm3 (0-0.2); Basophils % 2.3 % (0.1-2.0); Eosinophils # 0.4 K/mm3 (0.0-0.4); Eosinophils % 3.6 % (0.1-12.0); Hematocrit 48.7 % (42.0-52.0); Hemoglobin 17.4 g/dL (14.1-18.0); Lymphocytes # 3.7 K/mm3 (0.7-4.5); Lymphocytes % 34.6 % (10-50); Mean Corpuscular HGB Conc 35.7 g/dL (31.8-35.4); Mean Corpuscular Hemoglobin 34.4 pg (27.0-31.2); Mean Corpuscular Volume 96.4 fl (80-94); Mean Platelet Volume 10.3 fl (7.4-10.4); Monocytes # 0.9 K/mm3 (0.1-1.0); Neutrophils # 5.5 K/mm3 (1.8-7.8); Neutrophils % 51.5 % (37.0-80.0); Platelet Count 368 K/mm3 (142-424); Potassium 3.6 mmoL/L (3.5-5.1); Red Blood Count 5.05 M/mm3 (4.60-6.20); Red Cell Distribution Width 15.7 % (11.5-17.5); Sodium 137 mmol/L (136-145); White Blood Count 10.6 K/mm3 (4.8-10.8)
[2023-12-27 09:16] LABS: Blood Urea Nitrogen 15 mg/dl (9-20); Creatinine Clearance Estimated 87 mL/min (50-200); Estimated Glomerular Filt Rate 54 ml/min (>60); GFR (African American) 66 ML/MIN (>60)
[2023-12-27 09:17] LABS: Anion Gap 10.6 mEq/L (5-15); Calcium 9.7 mg/dl (8.4-10.2); Carbon Dioxide 29 mmol/L (22.0-30.0); Glucose 101 mg/dl (74-100)
[2023-12-27 09:32] LABS: INR 1.61 (0.9-1.1); Prothrombin Time 17.2 seconds (10.1-12.5)
[2023-12-27] MEDS: 0.9 % SODIUM CHLORIDE 500 ML 25 ML IV (12:16)
[2023-12-27] MEDS: HEPARIN 1,000 UNITS/500ML NS (CATH LAB) 3000 UNIT IV (12:16)
[2023-12-27] MEDS: HEPARIN 1,000 UNITS/ML 10ML VIAL (CATH LAB) 10000 UNIT IV (12:17)
[2023-12-27] MEDS: diphenhydrAMINE 50MG/ML VIAL 50 MG IV (12:17)
[2023-12-27] MEDS: NITROGLYCERIN 800MCG/8ML SYR (CATH LAB) 800 MCG IA (12:18)
[2023-12-27] MEDS: VERAPAMIL 2.5MG/ML 2ML VIAL 2.5 MG IV (12:18)
[2023-12-27] MEDS: MIDAZOLAM HCL 1MG/1ML 5ML VIAL 1 MG IV (12:19)
[2023-12-27] MEDS: LIDOCAINE 1% 10ML MDV 20 ML IJ (12:19)
[2023-12-27] MEDS: FENTANYL 100MCG/2ML VIAL 50 MCG IV (12:19)
[2023-12-27] MEDS: IOPAMIDOL-370 (76%);100ML BOTTLE 80 ML IV (15:45)
== END 2023-12-27 15:05 | disposition home or self-care (01) ==
PROVIDERS: PCP Student in an Organized Health Care Education/Training Program; Visit Provider Internal Medicine
DX: R53.83 Other fatigue; I25.10 Atherosclerotic heart disease of native coronary artery without angina pectoris; I11.0 Hypertensive heart disease with heart failure; I50.33 Acute on chronic diastolic (congestive) heart failure; E78.2 Mixed hyperlipidemia; I65.23 Occlusion and stenosis of bilateral carotid arteries; Z79.01 Long term (current) use of anticoagulants; Z79.899 Other long term (current) drug therapy
CPT/HCPCS: 80048; 85025; 85610; 93458; 99152; C1725; C1769; J1200; J1644; J2250; J3010; Q9967

== ENCOUNTER 2024-01-12 11:34 | Outpatient (CLI) | payer MEDICARE, SELFPAY ==
[2024-01-12 14:39] LABS: PHA INR Fingerstick 2.3 (0.9-1.1)
== END 2024-01-12 14:45 ==
LOC: ACC 11:35
PROVIDERS: PCP Student in an Organized Health Care Education/Training Program; Visit Provider Student in an Organized Health Care Education/Training Program
DX: Z79.01 Long term (current) use of anticoagulants (principal); Z86.718 Personal history of other venous thrombosis and embolism
CPT/HCPCS: 85610; 99211; G0463

== ENCOUNTER 2024-02-29 11:18 | Outpatient (CLI) | payer MEDICARE, SELFPAY ==
[2024-02-29 16:00] LABS: PHA INR Fingerstick 1.9 (0.9-1.1)
== END 2024-02-29 16:20 ==
LOC: ACC 11:19
PROVIDERS: PCP Student in an Organized Health Care Education/Training Program; Visit Provider Student in an Organized Health Care Education/Training Program
DX: Z79.01 Long term (current) use of anticoagulants (principal); I48.91 Unspecified atrial fibrillation
CPT/HCPCS: 85610; 99211; G0463

== ENCOUNTER 2024-03-02 13:04 | Outpatient (CLI) | payer MEDICARE, SELFPAY ==
[2024-03-02 18:03] LABS: Coronavirus 19, PCR Not Detected (NotDetected); Influenza A, PCR Not Detected (NotDetected); Influenza B, PCR Not Detected (NotDetected)
== END 2024-03-02 23:59 | disposition home or self-care (01) ==
LOC: LAB.DROPOF 03-03 11:11
PROVIDERS: PCP Student in an Organized Health Care Education/Training Program; Visit Provider Student in an Organized Health Care Education/Training Program
DX: R50.9 Fever, unspecified (principal)
CPT/HCPCS: 87636

== ENCOUNTER 2024-03-07 13:31 | Inpatient (IN) | payer MEDICARE, SELFPAY ==
[2024-03-07] VITALS (13 sets, daily range): BP systolic 129–183; BP diastolic 72–120; PULSE 78–130; RESP 20–22; TEMP 36.6–36.8; O2SAT 85–95; BMI 39.5; BMI 40.6
--- NOTE | 2024-03-07 13:39 | ECG_ITS ---
APPROVED REPORT Exam: Resting ECG HR:88 bpm ECG Measurements Heart Rate 88 AXES IN 172 P 41 QRSd 106 QRS 33 QT 357 T 50 QTc 402 Conclusion SINUS RHYTHM NORMAL ECG Electronically signed by : KALEB TURCIOS, 03/07/2024 15:30:44
--- NOTE | 2024-03-07 13:44 | XR_ITS ---
FINAL REPORT CLINICAL HISTORY: SOA COMPARISON: 07/10/2019 FINDINGS: No acute pulmonary opacity is present. There is no evidence of effusion or pneumothorax. Mediastinum is unremarkable. There is moderate cardiomegaly. IMPRESSION: Cardiomegaly without acute findings. Reviewed, Interpreted and Dictated by Juan Alberto Overton MD Transcribed by Aleena Caruso Authenticated and [facility]
--- NOTE | 2024-03-07 13:55 | [facility].EDCP ---
Discharge Plan Disposition Patient Disposition: Admitted Prescriptions Prescriptions: No Action warfarin 5 mg tablet 5 mg PO MOWEFR ipratropium-albuterol 0.5 mg-3 mg(2.5 mg base)/3 mL solution for nebulization 3 ml IH QID PRN (Reason: shortness of breath or wheezing) 90 Days Qty: 270 3RF Trelegy Ellipta 100-62.5-25 mcg blister with device 1 inh inhalation DAILY 90 Days Qty: 90 2RF ergocalciferol (vitamin D2) 1,250 mcg (50,000 unit) capsule 1,250 mcg PO Q2W Patient Comments: TAKE 1 CAPSULE BY MOUTH EVERY TWO WEEKS Jardiance 10 mg tablet 10 mg PO DAILY mupirocin 2 % ointment 1 ea topical DAILY Patient Comments: APPLY A SMALL AMOUNT OF OINTMENT TOPICALLY TO AFFECTED AREA TWICE DAILY FOR 10 DAYS levocetirizine 5 mg tablet 5 mg PO DAILY Patient Comments: TAKE 1 TABLET BY MOUTH ONCE DAILY DIRECTED FOR ALLERGIES memantine 10 mg tablet 10 mg PO BID 30 Days Qty: 60 5RF thiamine HCl (vitamin B1) 100 mg tablet 100 mg PO DAILY Qty: 30 5RF albuterol sulfate 90 mcg/actuation HFA aerosol inhaler 1 inh IH QID PRN (Reason: shortness of breath or wheezing) 90 Days Qty: 8.5 3RF azelastine 137 mcg (0.1 %) spray,non-aerosol 1 spray intranasal BID 90 Days Qty: 90 3RF Rx Instructions: administer into each nostril fluticasone propionate [Flonase Allergy Relief] 50 mcg/actuation spray,suspension 2 spray intranasal DAILY 90 Days Qty: 16 3RF Rx Instructions: administer into each nostril carvedilol 3.125 mg tablet 3.125 mg PO BID Patient Comments: TAKE 1 TABLET BY MOUTH TWICE DAILY benzonatate 100 mg capsule 100 mg PO BID PRN (Reason: cough) Qty: 20 0RF citalopram 20 mg tablet 20 mg PO DAILY 30 Days Qty: 90 3RF bumetanide 1 mg tablet 2 mg PO DAILY Qty: 180 3RF atorvastatin 80 mg tablet See Rx Instructions .ROUTE .COMPLEX Qty: 90 3RF Dose Instruction: Take 1 tablet by mouth once daily Rx Instructions: Take 1 tablet by mouth once daily levothyroxine 50 mcg tablet 50 mcg PO DAILY Qty: 90 3RF enoxaparin 120 mg/0.8 mL syringe 120 mg SQ Q12H Qty: 16 0RF Rx Instructions: Start one injection every 12 hours 5 days prior to surgery. No injection on the morning of surgery. Resume both lovenox and warfarin after surgery until INR >2.0 then stop lovenox. prednisone 20 mg tablet 20 mg PO BID Qty: 8 0RF cephalexin 500 mg capsule 500 mg PO BID Qty: 20 0RF warfarin 5 mg Tablet 7.5 mg PO SUTUTHSA Referrals Follow up/Referrals: Lidya Douglas PA [Primary Care Provider] - See instructions Clinical Impressions Clinical Impression: Acute hypoxemic respiratory failure, CHF exacerbation, Sepsis, MIGUEL A (acute kidney injury), Neutropenia Print Language Print Language: Tuvaluan Discharge ED Provider: Johnnie Cope HPI <Alix Suresh DO - Last Filed: 03/07/24 15:27> General Chief Complaint: Shortness of Breath/Dyspnea Stated Complaint: soa Time Seen by Provider: 03/07/24 13:32 Mode of Arrival: Ambulatory Source of Information: Patient and Spouse Limitations: No Limitations Description of Symptoms (Recalled from ER Triage Doc. by RN): SOB pt on steriods and ABT tx started on 03/03 no chest pain. productive cough with yellow/green sputum History of Present Illness HPI narrative: This patient is a 73-year-old male with a history of interstitial lung disease, ISAAC with CPAP/home oxygen only at night, hypertension, hyperlipidemia, PE on Coumadin, CHF, pulmonary hypertension, CAD, and aortic valve stenosis presenting to the emergency department for evaluation with concern for cough and shortness of breath. Patient reports over a week of symptoms. He was evaluated in his PCPs office 03/02/2024 for cough, increased butyrin production, and shortness of breath and prescribed steroids and antibiotics. He has been using nebulizer treatments at home, but his symptoms have progressively worsened since then. No associated chest pain, abdominal pain, vomiting, diarrhea, or other concerns. He does have some mild leg swelling with symmetric and bilateral. Related Data Home Medications ?Medication ?Instructions ?Recorded ?Confirmed warfarin 5 mg tablet 5 mg PO MOWEFR Blood thinner 06/25/21 03/02/24 warfarin 5 mg tablet 7.5 mg PO SUTUTHSA Blood thinner 12/01/21 03/02/24 levocetirizine 5 mg tablet 5 mg PO DAILY 10/11/23 03/02/24 mupirocin 2 % topical ointment 1 ea topical DAILY 10/11/23 03/02/24 empagliflozin 10 mg tablet 10 mg PO DAILY 12/20/23 03/02/24 (Jardiance) ergocalciferol (vitamin D2) 1,250 1,250 mcg PO Q2W 12/20/23 03/02/24 mcg (50,000 unit) capsule carvedilol 3.125 mg tablet 3.125 mg PO BID 01/10/24 03/02/24 Previous Rx's ?Medication ?Instructions ?Recorded citalopram 20 mg tablet 20 mg PO DAILY dementia 30 days 12/22/22 #90 tabs ipratropium 0.5 mg-albuterol 3 mg 3 ml inhalation QID PRN shortness 02/15/23 (2.5 mg base)/3 mL nebulization of breath or wheezing 90 days #270 soln mL bumetanide 1 mg tablet 2 mg (2 x 1 mg) PO DAILY #180 tabs 04/13/23 atorvastatin 80 mg tablet See Rx Instructions .Route 07/01/23 .COMPLEX #90 tabs fluticasone fur. 100 mcg-umeclid 1 inh inhalation DAILY 90 days #90 10/07/23 62.5 mcg-vilant 25 mcg ea inhalat.powder (Trelegy Ellipta) albuterol sulfate 90 mcg/actuation 1 inh inhalation QID PRN shortness 12/01/23 aerosol inhaler of breath or wheezing 90 days #8.5 grams azelastine 137 mcg (0.1 %) nasal 1 spray intranasal BID 90 days #90 12/01/23 spray mL fluticasone propionate 50 2 spray intranasal DAILY 90 days 12/01/23 mcg/actuation nasal #16 grams spray,suspension (Flonase Allergy Relief) memantine 10 mg tablet 10 mg PO BID dementia 30 days #60 12/29/23 tabs thiamine HCl (vitamin B1) 100 mg 100 mg PO DAILY #30 tabs 12/29/23 tablet levothyroxine 50 mcg tablet 50 mcg PO DAILY . #90 tabs 01/10/24 enoxaparin 120 mg/0.8 mL 120 mg (0.8 mL) SQ Q12H #16 mL 02/09/24 subcutaneous syringe benzonatate 100 mg capsule 100 mg PO BID PRN cough #20 caps 03/02/24 cephalexin 500 mg capsule 500 mg PO BID #20 caps 03/03/24 prednisone 20 mg tablet 20 mg PO BID #8 tabs 03/03/24 Allergies Allergy/AdvReac Type Severity Reaction Status Date / Time No Known Allergies Allergy Verified 03/02/24 11:09 [facility] <Alix Suresh DO - Last Filed: 03/07/24 15:27> [facility] Disclaimer: The information contained in this section may have been updated after the patient was seen, as this information can be updated by other users. Medical History SNHL (sensorineural hearing loss) ILD (interstitial lung disease) Sleep apnea Gall stone History of sleep apnea COPD exacerbation Allergic rhinitis Restrictive lung disease Allergic rhinitis History of smoking 30 or more pack years Dyspnea on exertion COPD (chronic obstructive pulmonary disease) Dyspnea on exertion Moderate aortic stenosis Mild aortic stenosis Pre-op evaluation HLD (hyperlipidemia) Pulmonary embolism CHF (congestive heart failure) Pulmonary hypertension HHD (hypertensive heart disease) CAD (coronary artery disease) DVT (deep venous thrombosis) Fatigue HTN (hypertension) Aortic valve stenosis Surgical History Status post arthroscopy of hip History of arthroscopic knee surgery Family History Other Stroke Social History Smoking Status: Former smoker tobacco type: cigarettes second hand exposure: No alcohol intake: never substance use type: denies use current occupational status: retired Travel in the last 8 weeks: Inside the [place] household members: significant other housing: house current occupational exposures/hazards: No caffeine: Yes Have you lived/traveled outside [place] in past 30 days?: No Contact w/someone who lives/traveled outside [place] past 30 days?: No Exposure to someone with infectious disease in past 14 days?: No Do you have a fever (greater than 100.4 F or 38 C)?: No Have you tested positive for COVID-19: No Exposed to someone with COVID-19 in past 14 days?: No Do you have a sore throat?: No Do you have a cough?: No Do you have any weakness?: No Do you have any diarrhea?: No Are you experiencing any unusual bleeding?: No Do you have any muscle aches/pain?: No Do you have any abdominal pain?: No Are you experiencing loss of taste or smell?: No Other Medical History Have you received the Flu Vaccine for this season: Yes Have you received the Pneumonia Vaccine: Yes <Alix Suresh DO - Last Filed: 03/07/24 15:27> ROS Obtained: Yes All systems reviewed & no additional complaints except as documented Physical Exam <Alix Suresh DO - Last Filed: 03/07/24 15:27> General General appearance: alert, in distress and obese Comment: Mild respiratory distress Head Head exam: atraumatic and normocephalic Eye Eye exam: Present normal appearance, PERRL and EOMI ENT ENT exam: Present normal exam, normal oropharynx, mucous membranes moist and normal external ear exam Neck Neck exam: Present normal inspection, full ROM and trachea midline; Absent tenderness Chest Chest inspection: Present normal inspection and symmetric chest wall rise; Absent tenderness Respiratory Respiratory exam: Present respiratory distress, wheezes, accessory muscle use, prolonged expiratory phase and other (Diminished breath sounds bilaterally within expiratory wheezing noted. Pursed lip breathing with prolonged expiratory phase. Tachypneic with accessory muscle use. O2 saturation 90% on 2 L); Absent stridor Cardiovascular Cardiovascular exam: Present regular rate and normal rhythm Abdominal Exam Abdominal exam: Present soft, distention and hernia (umbilical, soft and reducible); Absent tenderness or guarding Extremities Exam Extremities exam: Present full ROM, normal capillary refill and edema (symmetric BLE edema); Absent tenderness Back Exam Back exam: Present normal inspection and full ROM; Absent tenderness Neurological Exam Neurological exam: Present alert, oriented X3, CN II-XII intact and normal gait; Absent motor sensory deficit Psychiatric Psychiatric exam: Present normal affect and normal mood Skin Skin exam: Present warm and dry HEART Score <Alix Suresh DO - Last Filed: 03/07/24 15:27> HEART Score HEART Score assessment performed?: Yes History (anamnesis): Moderately suspicious ECG: Non-specific disturbance Age: >65 years Risk factors: Atherosclerosis history Troponin: 1-3x normal limit HEART Score: 7 <Johnnie Cope MD - Last Filed: 03/07/24 16:05> HEART Score HEART Score: 7 Critical Care <Alix Suresh DO - Last Filed: 03/07/24 15:27> Critical Care Time Critical Care Time: Yes Attestation: On 03/07/24, the high probability of a clinically significant, sudden or life threatening deterioration of the following system(s) required my full and direct attention, intervention and personal management. The time I documented below is in addition to time spent performing reported procedures but includes the following listed in this critical care notation. Total Time Total Critical Care Time: 30 <Johnnie Cope MD - Last Filed: 03/07/24 16:05> Critical Care Time Critical Care Time: Yes (respiratory) Total Time Total Critical Care Time: 45 Medical Decision Making <Alix Suresh DO - Last Filed: 03/07/24 15:27> Win Inquiry Pt receiving controlled substance: No Vital Signs Vital Signs: 03/07/24 13:43 03/07/24 14:03 03/07/24 14:30 Temperature 98.3 F Temperature Source Oral Pulse Rate 87 81 Pulse Rate [Right Radial] 96 H Respiratory Rate 22 Blood Pressure 148/92 H 130/73 Blood Pressure [Right Arm] 183/99 H Blood Pressure Mean [Right Arm] 127 02 Sat by Pulse Oximetry 85 L 90 L 91 L Oxygen Delivery Method Room Air Nasal Cannula Nasal Cannula 03/07/24 14:45 03/07/24 15:00 03/07/24 15:31 Temperature Temperature Source Pulse Rate 86 82 130 H Pulse Rate [Right Radial] Respiratory Rate 20 Blood Pressure 136/74 178/95 H Blood Pressure [Right Arm] Blood Pressure Mean [Right Arm] 02 Sat by Pulse Oximetry 92 L 86 L Oxygen Delivery Method Nasal Cannula Nasal Cannula Lab Data Labs: Lab Results 03/07/24 13:35: Urine Color Yellow, Urine Appearance Clear, Urine pH 6.0, Ur Specific [place] 1.010, Urine Protein Trace, Urine Glucose (UA) 3+, Urine Ketones Negative, Urine Blood Negative, Urine Nitrate Negative, Urine Bilirubin Negative, Urine Urobilinogen 0.2, Ur Leukocyte Esterase 1+ A, Urine RBC None, Urine WBC 10-20, Ur Squamous Epith Cells Occasional, Urine Bacteria Trace 03/07/24 13:44: WBC 7.7, RBC 5.25, Hgb 18.0, Hct 50.6, MCV 96.4 H, MCH 34.2 H, MCHC 35.5 H, RDW 15.3, Plt Count 432 H, MPV 10.1, Neut % (Auto) 1.3 L, Lymph % (Auto) 98.4 H, [place] % (Auto) 0.2 L, Eos % (Auto) 0.1, Baso % (Auto) 6.4 H, Neut # (Auto) 0.1 L*, Lymph # (Auto) 7.6 H, [place] # (Auto) 0.0 L, Eos # (Auto) 0.0, Baso # (Auto) 0.5 H, Total Counted 100, Neutrophils % (Manual) 55, Lymphocytes % (Manual) 33, Monocytes % (Manual) 12 H, Platelet Estimate Slight increase, RBC Morphology Normal, Anisocytosis 1+, PT 16.1 H, INR 1.50 H, D-Dimer 0.96 H, Sodium 142, Potassium 3.5, Chloride 105, Carbon Dioxide 27, Anion Gap 13.5, BUN 24 H, Creatinine 1.30 H, Estimated Creat Clear 87, Estimated GFR 54 L, Est GFR ( Amer) 66, Glucose 91, Calcium 9.1, Magnesium 2.1, Total Bilirubin 0.9, AST 47, ALT 56, Alkaline Phosphatase 102, Troponin I 0.03, C-Reactive Protein 2.8, NT-Pro-B Natriuret Pep 1070 H, Total Protein 7.4, Albumin 4.4, Globulin 3.0, Albumin/Globulin Ratio 1.5, Procalcitonin 0.057 03/07/24 13:45: HIV Ag/Ab Combo Qual Negative 03/07/24 13:56: VBG pH 7.34, VBG pCO2 46.3, VBG pO2 46.9 H, VBG HCO3 24.3, VBG Total CO2 25.7, VBG O2 Saturation 82.9 H, VBG Base Excess -1.5, VBG Lactic Acid 4.5 H 03/07/24 13:59: Chlamy pneumoniae PCR Not detected, Adenovirus (PCR) Not detected, B. pertussis DNA (PCR) Not detected, Coronavirus OC43 (PCR) Not detected, Coronavirus HKU1 (PCR) Not detected, Coronavirus 229E (PCR) Not detected, SARS-CoV-2 (PCR) Not detected, Coronavirus NL63 (PCR) Not detected, Human Metapneumovir PCR Not detected, Influenza A (H1) PCR Not detected, Influ A (H1N1/09) PCR Not detected, Influenza A (H3) PCR Not detected, Influenza Type A (PCR) Not detected, Influenza Type B (PCR) Not detected, M. pneumoniae (PCR) Not detected, Parainfluenza 1 (PCR) Not detected, Parainfluenza 2 (PCR) Not detected, Parainfluenza 3 (PCR) Not detected, Parainfluenza 4 (PCR) Not detected, RSV (PCR) Detected A, Entero/Rhino (PCR) Not detected 03/07/24 13:44 03/07/24 13:44 Response Orders (Tests/Meds): ED MEDICATIONS Generic Name Dose Route Start Last Admin Trade Name Freq PRN Reason Stop Dose Admin Vancomycin HCl 2,000 mg/ 250 mls @ 125 mls/hr 03/07/24 14:45 03/07/24 15:13 Sodium Chloride IV 03/07/24 16:44 125 mls/hr ONCE ONE Administration Miscellaneous 1 each 03/07/24 14:45 03/07/24 15:16 Vancomycin Consult Request NOTAPPLIC 04/06/24 14:44 1 each [facility] Administration Sodium Chloride 3 ml 03/07/24 13:44 03/07/24 14:42 Sodium Chloride 3% 15ml [facility] 04/06/24 13:43 3 ml ONCE PRN Administration INDUCE SPUTUM COLLECTION Discontinued Medications Generic Name Dose Route Start Last Admin Trade Name Freq PRN Reason Stop Dose Admin Albuterol/Ipratropium 9 ml 03/07/24 13:44 03/07/24 14:05 Ipratropium/Albuterol 3 Ml Neb 03/07/24 13:45 9 ml ONCE ONE Administration Bumetanide 2 mg 03/07/24 14:36 03/07/24 15:12 Bumetanide 1mg/4ml Vial IV 03/07/24 14:37 2 mg ONCE ONE Administration Magnesium Sulfate 2 gm in 50 mls @ 50 mls/hr 03/07/24 13:44 03/07/24 14:05 Magnesium Sulfate 2gm/50ml Premix IV 03/07/24 14:43 50 mls/hr ONCE ONE Administration Cefepime HCl 2 gm/ Sodium 100 mls @ 200 mls/hr 03/07/24 14:36 03/07/24 15:12 Chloride IV 03/07/24 15:05 200 mls/hr ONCE ONE Administration Iopamidol 80 ml 03/07/24 15:18 03/07/24 15:19 Iopamidol-370 (76%);100ml Bottle IV 03/07/24 15:19 80 ml ONCE ONE Administration Methylprednisolone Sodium Succinate 125 mg 03/07/24 13:44 03/07/24 14:04 Methylprednisolone Sod Succ 125mg Vial IV 03/07/24 13:45 125 mg ONCE ONE Administration Sodium Chloride 10 ml 03/07/24 15:18 03/07/24 15:19 Sodium Chloride 0.9% 10ml Syr (Rad Only) IV 03/07/24 15:19 10 ml ONCE ONE Administration Sodium Chloride 50 ml 03/07/24 15:18 03/07/24 15:19 0.9 % Sodium Chloride 50 Ml Vial IV 03/07/24 15:19 50 ml ONCE ONE Administration ORDERS Category Date Time Status CT angio chest PE protocol Stat Cat Scan 03/07/24 14:36 Completed CXR --portable [XR chest portable] Stat Exams 03/07/24 13:44 Completed BNP [NT Pro Brain Natriuretic Pep.] Stat Lab 03/07/24 13:44 Completed CRP [C-Reactive Protein] Stat Lab 03/07/24 13:44 Completed Complete Blood Count Auto Diff Stat Lab 03/07/24 13:44 Completed Comprehensive Metabolic Panel Stat Lab 03/07/24 13:44 Completed D-Dimer Stat Lab 03/07/24 13:44 Completed Full Resp Panel w/COVID ([facility]) Routine Lab 03/07/24 13:59 Completed HIV Combo Stat Lab 03/07/24 13:45 Completed Hep C Ab with Reflex to RNA Stat Lab 03/07/24 13:45 Received INR [Prothrombin Time INR] Stat Lab 03/07/24 13:44 Completed Magnesium Stat Lab 03/07/24 13:44 Completed Procalcitonin Stat Lab 03/07/24 13:44 Completed Trop I [Troponin I] Stat Lab 03/07/24 13:44 Completed Troponin I Q3H Lab 03/07/24 16:45 Ordered Troponin I Q3H Lab 03/07/24 19:45 Ordered UA [Urinalysis and Microscopic] Stat Lab 03/07/24 13:35 Completed Blood Culture Stat Micro 03/07/24 14:13 Received Sputum Culture & Gram Stain Stat Micro 03/07/24 14:44 Ordered Urine Culture Stat Micro 03/07/24 13:35 Received VBG [Venous Blood Gas] Stat RT 03/07/24 13:56 Completed ECG Data Tracing #1: Attestation: I reviewed this ECG and interpreted as documented below: ECG Narrative: Normal sinus rhythm with a ventricular rate of [address] changes concerning for STEMI. Normal axis and intervals. ECG initial impression date: 03/07/24 ECG initial impression time: 13:40 MDM Narrative Medical Decision Narrative: In summary, this patient is a 73-year-old male presenting to the Emergency Department for evaluation of cough and shortness of breath. Differential diagnoses considered include but are not limited to pneumonia, respiratory failure, COPD exacerbation, CHF exacerbation, sepsis. Ruling out the most morbid conditions drove assessment. It should be noted patient's history includes COPD, obesity, PE, CHF, pulmonary hypertension which are not at goal therapy. This complicates all aspects of care by increasing patient's risk for morbidity. I reviewed patient's past medical records and noted to be evaluated 2 days ago for similar issues and prescriptions for Tessalon Perles, Keflex, prednisone. On exam, the patient is in mild respiratory distress with tachypnea, pursed lip breathing, accessory muscle use. He has diminished breath sounds bilaterally. He is requiring 2 L nasal cannula to maintain O2 saturation of 90% and he does not typically wear oxygen at home. Workup included broad lab evaluation to evaluate for infectious, metabolic, cardiac causes as well as chest x-ray and EKG. EKG is nonischemic. Patient was given DuoNebs x 3, IV methylprednisolone, IV magnesium to assess for improvement in respiratory status. I independently interpreted chest x-ray prior to the radiologist read and noted cardiomegaly, no obvious large pneumonia. Please see their read for final interpretation. Labs were obtained that demonstrated neutropenia. He is subtherapeutic on INR at 1.5. Lactic acid is elevated at 4.5. Kidney function is around the patient's baseline. Urine is concerning for possible infection with white blood cells and bacteria. On reassessment, patient had some improvement after administration of interventions above, but he continues to have increased work of breathing with prolonged expiratory phase and pursed lip breathing. He continues to require nasal cannula to maintain O2 saturation greater than 90% while awake. He was found to have mildly elevated D-dimer in the setting of subtherapeutic anticoagulation with Coumadin. Given this, CT PE protocol was ordered. I also started the patient on broad-spectrum antibiotics given neutropenia and respiratory failure. I ordered vancomycin and cefepime. For cardiomegaly and concerns for volume overload with elevated BNP, I did give him 2 mg of IV Bumex. At this time, patient care signed out to the oncoming provider, Dr. Cope, pending CT and admission for multifactorial respiratory failure. <Johnnie Cope MD - Last Filed: 03/07/24 16:05> Vital Signs Vital Signs: 03/07/24 13:43 03/07/24 14:03 03/07/24 14:30 Temperature 98.3 F Temperature Source Oral Pulse Rate 87 81 Pulse Rate [Right Radial] 96 H Respiratory Rate 22 Blood Pressure 148/92 H 130/73 Blood Pressure [Right Arm] 183/99 H Blood Pressure Mean [Right Arm] 127 02 Sat by Pulse Oximetry 85 L 90 L 91 L Oxygen Delivery Method Room Air Nasal Cannula Nasal Cannula 03/07/24 14:45 03/07/24 15:00 03/07/24 15:31 Temperature Temperature Source Pulse Rate 86 82 130 H Pulse Rate [Right Radial] Respiratory Rate 20 Blood Pressure 136/74 178/95 H Blood Pressure [Right Arm] Blood Pressure Mean [Right Arm] 02 Sat by Pulse Oximetry 92 L 86 L Oxygen Delivery Method Nasal Cannula Nasal Cannula Lab Data Labs: Lab Results 03/07/24 13:35: Urine Color Yellow, Urine Appearance Clear, Urine pH 6.0, Ur Specific [place] 1.010, Urine Protein Trace, Urine Glucose (UA) 3+, Urine Ketones Negative, Urine Blood Negative, Urine Nitrate Negative, Urine Bilirubin Negative, Urine Urobilinogen 0.2, Ur Leukocyte Esterase 1+ A, Urine RBC None, Urine WBC 10-20, Ur Squamous Epith Cells Occasional, Urine Bacteria Trace 03/07/24 13:44: WBC 7.7, RBC 5.25, Hgb 18.0, Hct 50.6, MCV 96.4 H, MCH 34.2 H, MCHC 35.5 H, RDW 15.3, Plt Count 432 H, MPV 10.1, Neut % (Auto) 1.3 L, Lymph % (Auto) 98.4 H, [place] % (Auto) 0.2 L, Eos % (Auto) 0.1, Baso % (Auto) 6.4 H, Neut # (Auto) 0.1 L*, Lymph # (Auto) 7.6 H, [place] # (Auto) 0.0 L, Eos # (Auto) 0.0, Baso # (Auto) 0.5 H, Total Counted 100, Neutrophils % (Manual) 55, Lymphocytes % (Manual) 33, Monocytes % (Manual) 12 H, Platelet Estimate Slight increase, RBC Morphology Normal, Anisocytosis 1+, PT 16.1 H, INR 1.50 H, D-Dimer 0.96 H, Sodium 142, Potassium 3.5, Chloride 105, Carbon Dioxide 27, Anion Gap 13.5, BUN 24 H, Creatinine 1.30 H, Estimated Creat Clear 87, Estimated GFR 54 L, Est GFR ( Amer) 66, Glucose 91, Calcium 9.1, Magnesium 2.1, Total Bilirubin 0.9, AST 47, ALT 56, Alkaline Phosphatase 102, Troponin I 0.03, C-Reactive Protein 2.8, NT-Pro-B Natriuret Pep 1070 H, Total Protein 7.4, Albumin 4.4, Globulin 3.0, Albumin/Globulin Ratio 1.5, Procalcitonin 0.057 03/07/24 13:45: HIV Ag/Ab Combo Qual Negative 03/07/24 13:56: VBG pH 7.34, VBG pCO2 46.3, VBG pO2 46.9 H, VBG HCO3 24.3, VBG Total CO2 25.7, VBG O2 Saturation 82.9 H, VBG Base Excess -1.5, VBG Lactic Acid 4.5 H 03/07/24 13:59: Chlamy pneumoniae PCR Not detected, Adenovirus (PCR) Not detected, B. pertussis DNA (PCR) Not detected, Coronavirus OC43 (PCR) Not detected, Coronavirus HKU1 (PCR) Not detected, Coronavirus 229E (PCR) Not detected, SARS-CoV-2 (PCR) Not detected, Coronavirus NL63 (PCR) Not detected, Human Metapneumovir PCR Not detected, Influenza A (H1) PCR Not detected, Influ A (H1N1/09) PCR Not detected, Influenza A (H3) PCR Not detected, Influenza Type A (PCR) Not detected, Influenza Type B (PCR) Not detected, M. pneumoniae (PCR) Not detected, Parainfluenza 1 (PCR) Not detected, Parainfluenza 2 (PCR) Not detected, Parainfluenza 3 (PCR) Not detected, Parainfluenza 4 (PCR) Not detected, RSV (PCR) Detected A, Entero/Rhino (PCR) Not detected Response Orders (Tests/Meds): ED MEDICATIONS Generic Name Dose Route Start Last Admin Trade Name Freq PRN Reason Stop Dose Admin Vancomycin HCl 2,000 mg/ 250 mls @ 125 mls/hr 03/07/24 14:45 03/07/24 15:13 Sodium Chloride IV 03/07/24 16:44 125 mls/hr ONCE ONE Administration Miscellaneous 1 each 03/07/24 14:45 03/07/24 15:16 Vancomycin Consult Request NOTAPPLIC 04/06/24 14:44 1 each CONSULT [facility]Y [facility] Administration Sodium Chloride 3 ml 03/07/24 13:44 03/07/24 14:42 Sodium Chloride 3% 15ml Neb 04/06/24 13:43 3 ml ONCE PRN Administration INDUCE SPUTUM COLLECTION Discontinued Medications Generic Name Dose Route Start Last Admin Trade Name Freq PRN Reason Stop Dose Admin Albuterol/Ipratropium 9 ml 03/07/24 13:44 03/07/24 14:05 Ipratropium/Albuterol 3 Ml Neb 03/07/24 13:45 9 ml ONCE ONE Administration Bumetanide 2 mg 03/07/24 14:36 03/07/24 15:12 Bumetanide 1mg/4ml Vial IV 03/07/24 14:37 2 mg ONCE ONE Administration Magnesium Sulfate 2 gm in 50 mls @ 50 mls/hr 03/07/24 13:44 03/07/24 14:05 Magnesium Sulfate 2gm/50ml Premix IV 03/07/24 14:43 50 mls/hr ONCE ONE Administration Cefepime HCl 2 gm/ Sodium 100 mls @ 200 mls/hr 03/07/24 14:36 03/07/24 15:12 Chloride IV 03/07/24 15:05 200 mls/hr ONCE ONE Administration Iopamidol 80 ml 03/07/24 15:18 03/07/24 15:19 Iopamidol-370 (76%);100ml Bottle IV 03/07/24 15:19 80 ml ONCE ONE Administration Methylprednisolone Sodium Succinate 125 mg 03/07/24 13:44 03/07/24 14:04 Methylprednisolone Sod Succ 125mg Vial IV 03/07/24 13:45 125 mg ONCE ONE Administration Sodium Chloride 10 ml 03/07/24 15:18 03/07/24 15:19 Sodium Chloride 0.9% 10ml Syr (Rad Only) IV 03/07/24 15:19 10 ml ONCE ONE Administration Sodium Chloride 50 ml 03/07/24 15:18 03/07/24 15:19 0.9 % Sodium Chloride 50 Ml Vial IV 03/07/24 15:19 50 ml ONCE ONE Administration ORDERS Category Date Time Status CT angio chest PE protocol Stat Cat Scan 03/07/24 14:36 Completed CXR --portable [XR chest portable] Stat Exams 03/07/24 13:44 Completed BNP [NT Pro Brain Natriuretic Pep.] Stat Lab 03/07/24 13:44 Completed CRP [C-Reactive Protein] Stat Lab 03/07/24 13:44 Completed Complete Blood Count Auto Diff Stat Lab 03/07/24 13:44 Completed Comprehensive Metabolic Panel Stat Lab 03/07/24 13:44 Completed D-Dimer Stat Lab 03/07/24 13:44 Completed Full Resp Panel w/COVID ([facility]) Routine Lab 03/07/24 13:59 Completed HIV Combo Stat Lab 03/07/24 13:45 Completed Hep C Ab with Reflex to RNA Stat Lab 03/07/24 13:45 Received INR [Prothrombin Time INR] Stat Lab 03/07/24 13:44 Completed Magnesium Stat Lab 03/07/24 13:44 Completed Procalcitonin Stat Lab 03/07/24 13:44 Completed Trop I [Troponin I] Stat Lab 03/07/24 13:44 Completed Troponin I Q3H Lab 03/07/24 16:45 Ordered Troponin I Q3H Lab 03/07/24 19:45 Ordered UA [Urinalysis and Microscopic] Stat Lab 03/07/24 13:35 Completed Blood Culture Stat Micro 03/07/24 14:13 Received Sputum Culture & Gram Stain Stat Micro 03/07/24 14:44 Ordered Urine Culture Stat Micro 03/07/24 13:35 Received VBG [Venous Blood Gas] Stat RT 03/07/24 13:56 Completed MDM Narrative Medical Decision Narrative: In summary, this patient is a 73-year-old male presenting to the Emergency Department for evaluation of cough and shortness of breath. Differential diagnoses considered include but are not limited to pneumonia, respiratory failure, COPD exacerbation, CHF exacerbation, sepsis. Ruling out the most morbid conditions drove assessment. It should be noted patient's history includes COPD, obesity, PE, CHF, pulmonary hypertension which are not at goal therapy. This complicates all aspects of care by increasing patient's risk for morbidity. I reviewed patient's past medical records and noted to be evaluated 2 days ago for similar issues and prescriptions for Tessalon Perles, Keflex, prednisone. On exam, the patient is in mild respiratory distress with tachypnea, pursed lip breathing, accessory muscle use. He has diminished breath sounds bilaterally. He is requiring 2 L nasal cannula to maintain O2 saturation of 90% and he does not typically wear oxygen at home. Workup included broad lab evaluation to evaluate for infectious, metabolic, cardiac causes as well as chest x-ray and EKG. EKG is nonischemic. Patient was given DuoNebs x 3, IV methylprednisolone, IV magnesium to assess for improvement in respiratory status. I independently interpreted chest x-ray prior to the radiologist read and noted cardiomegaly, no obvious large pneumonia. Please see their read for final interpretation. Labs were obtained that demonstrated neutropenia. He is subtherapeutic on INR at 1.5. Lactic acid is elevated at 4.5. Kidney function is around the patient's baseline. Urine is concerning for possible infection with white blood cells and bacteria. On reassessment, patient had some improvement after administration of interventions above, but he continues to have increased work of breathing with prolonged expiratory phase and pursed lip breathing. He continues to require nasal cannula to maintain O2 saturation greater than 90% while awake. He was found to have mildly elevated D-dimer in the setting of subtherapeutic anticoagulation with Coumadin. Given this, CT PE protocol was ordered. I also started the patient on broad-spectrum antibiotics given neutropenia and respiratory failure. I ordered vancomycin and cefepime. For cardiomegaly and concerns for volume overload with elevated BNP, I did give him 2 mg of IV Bumex. At this time, patient care signed out to the oncoming provider, Dr. Cope, pending CT and admission for multifactorial respiratory failure. Anatoliy: I assumed primary responsibility for this patient after signout from previous physician. This is an acutely on chronically ill male with history of COPD, CHF, pulmonary hypertension, ISAAC, PEs despite anticoagulation presenting with concern for acute on chronic respiratory failure. On my evaluation, no acute distress. Patient workup prior to my arrival independently interpreted, normal white count, but severely neutropenic with neutrophils at about 100. Hemoglobin normal at 18, platelets nonactionable 432. Regarding coags, INR 1.5, subtherapeutic. D-dimer elevated nearly 1.0. VBG with lactate of 4.5, normal pH/CO2/oxygen/bicarb. Chemistry with MIGUEL A on CKD with creatinine 1.3/BUN 24. LFTs normal. Patient's initial troponin 0.03 within realm of normal. BNP elevated at 1070. Chest x-ray independently interpreted, cardiomegaly, and left-sided pleural effusion bilateral pulmonary infiltratesConsistent with CHF. CT PE ordered. Patient was taken back to CT. When laying flat, patient desaturated around 80%. Scan was obtained with application of oxygen. On independent interpretation of CT, patient has small left-sided pleural effusion with associated pneumonia. No PE. Cardiomegaly. On reevaluation, patient requiring 5-1/2 L nasal cannula, in no acute respiratory distress. He does have wheezes, but no increased work of breathing. Hospital medicine was contacted and case was discussed for acute respiratory failure in the setting of COPD, CHF, neutropenia and pneumonia. To be admitted.
[2024-03-07 13:58] LABS: VBG Base Excess -1.5 mmol/L (-2.4-2.3); VBG HCO3 24.3 mmol/L (23-30); VBG Oxygen Saturation 82.9 % (50-70); VBG PCO2 46.3 mmol/L (35-51); VBG PH 7.34 mmol/L (7.31-7.41); VBG PO2 46.9 mmol/L (28-40); VBG Total CO2 25.7 mmol/L (23-27)
--- NOTE | 2024-03-07 14:00 | PC.NURSE ---
VBG RESULTS RECEIVED FROM RESPIRATORY, PT NAME AND R/V. DR TURCIOS NOTIFIED
[2024-03-07 14:01] LABS: Basophils # 0.5 K/mm3 (0-0.2); Basophils % 6.4 % (0.1-2.0); Eosinophils % 0.1 % (0.1-12.0); Hematocrit 50.6 % (42.0-52.0); Lymphocytes # 7.6 K/mm3 (0.7-4.5); Lymphocytes % 98.4 % (10-50); Mean Corpuscular HGB Conc 35.5 g/dL (31.8-35.4); Mean Corpuscular Hemoglobin 34.2 pg (27.0-31.2); Mean Corpuscular Volume 96.4 fl (80-94); Mean Platelet Volume 10.1 fl (7.4-10.4); Monocytes % 0.2 % (1.7-9.3); Neutrophils # 0.1 K/mm3 (1.8-7.8); Platelet Count 432 K/mm3 (142-424); Red Blood Count 5.25 M/mm3 (4.60-6.20); Red Cell Distribution Width 15.3 % (11.5-17.5); White Blood Count 7.7 K/mm3 (4.8-10.8)
[2024-03-07 14:02] LABS: Lactate Venous 4.5 mmol/L (0.4-2.0)
[2024-03-07 14:03] LABS: Neutrophils % 1.3 % (37.0-80.0)
[2024-03-07 14:04] LABS: Adenovirus,PCR Not Detected (NotDetected); Bordetella Pertussis Not Detected (NotDetected); Chlamydophila Pneumoniae, PCR Not Detected (NotDetected); Coronavirus 19, PCR Not Detected (NotDetected); Coronavirus 229E Not Detected (NotDetected); Coronavirus NL63 Not Detected (NotDetected); Coronavirus OC43 Not Detected (NotDetected); Coronovirus HKU1,PCR Not Detected (NotDetected); Human Metapneumovirus Not Detected (NotDetected); Influenza A, PCR Not Detected (NotDetected); Influenza AH1, 2009 Not Detected (NotDetected); Influenza AH1, PCR Not Detected (NotDetected); Influenza AH3,PCR Not Detected (NotDetected); Influenza B, PCR Not Detected (NotDetected); Mycoplasma Pneumoniae, PCR Not Detected (NotDetected); Parainfluenza 1, PCR Not Detected (NotDetected); Parainfluenza 2, PCR Not Detected (NotDetected); Parainfluenza 3, PCR Not Detected (NotDetected); Parainfluenza 4, PCR Not Detected (NotDetected); Rhinovirus/Enterovirus Not Detected (NotDetected)
[2024-03-07] MEDS: METHYLPREDNISOLONE SOD SUCC 125MG VIAL 125 MG IV (14:04)
[2024-03-07] MEDS: IPRATROPIUM/ALBUTEROL 3 ML NEB 9 ML IH (14:05)
[2024-03-07] MEDS: MAGNESIUM SULFATE IN WATER 2 GM/50 ML PIGGYBACK IV (14:05)
[2024-03-07 14:06] LABS: Microscopic, Urine URINE MICROSCOPIC (MICROSCOPIC)
[2024-03-07 14:08] LABS: Alanine Aminotransferase 56 U/L (12-78); Albumin Level 4.4 g/dl (3.5-5.0); Albumin/Globulin Ratio 1.5 (1.1-1.8); Alkaline Phosphatase 102 U/L (38-126); Anion Gap 13.5 mEq/L (5-15); Aspartate Amino Transferase 47 U/L (17-59); Bilirubin,Total 0.9 mg/dl (0.2-1.3); Blood Urea Nitrogen 24 mg/dl (9-20); Calcium 9.1 mg/dl (8.4-10.2); Carbon Dioxide 27 mmol/L (22.0-30.0); Chloride 105 mmol/L (98-107); Creatinine Clearance Estimated 87 mL/min (50-200); Estimated Glomerular Filt Rate 54 ml/min (>60); GFR (African American) 66 ML/MIN (>60); Glucose 91 mg/dl (74-100); Magnesium 2.1 mg/dl (1.6-2.3); Potassium 3.5 mmoL/L (3.5-5.1); Sodium 142 mmol/L (136-145); Total Protein,Serum 7.4 g/dl (6.3-8.2)
[2024-03-07 14:09] LABS: Appearance,Urine CLEAR (Clear); Bilirubin,Urine Negative (Negative); Blood, Urine Negative (Negative); Color,Urine YELLOW (Yellow); Glucose,Urine (UA) 3+ (Negative); Ketones,Urine Negative (Negative); Leukocyte Esterase,Urine 1+ (Negative); Nitrate,Urine Negative (Negative); Protein,Urine TRACE (Negative); Urobilinogen,Urine 0.2 EU/dl (0.2)
[2024-03-07 14:09] LABS: Prothrombin Time 16.1 seconds (10.1-12.5)
[2024-03-07 14:10] LABS: MANUAL DIFFERENTIAL MANUAL DIFFERENTIAL (MANUAL DIFF)
[2024-03-07 14:14] LABS: C-Reactive Protein 2.8 mg/L (0-4)
[2024-03-07 14:16] LABS: Lymphocytes % 33 % (10-50); Monocytes % 12 % (2-9); Neutrophils % 55 % (42-76); Total Cells Counted 100
[2024-03-07 14:17] LABS: Anisocytosis 1+; Platelet Estimate Slight Increase; RBC Morphology Normal
[2024-03-07 14:20] LABS: NT Pro Brain Natriuretic Pep. 1070 pg/mL (0-125); Troponin I 0.03 ng/ml (0.00-0.034)
[2024-03-07 14:24] LABS: Procalcitonin 0.057 ng/mL (0.0-2.0)
[2024-03-07 14:27] LABS: D-Dimer 0.96 ug/mL (0.0-0.5)
--- NOTE | 2024-03-07 14:36 | CT_ITS ---
FINAL REPORT TECHNIQUE: Postcontrast axial images of the chest were performed in a CTA protocol. This study was performed with techniques to keep radiation doses as low as reasonably achievable, (ALARA). Individualized dose reduction technique using automated exposure control or adjustment of mA and/or kV according to the patient's size were employed. CLINICAL HISTORY: SOA, h/o PE, elevated dimer FINDINGS: The heart is normal in size. No pleural or pericardial effusion is identified. The thoracic aorta is normal in caliber with no focal aneurysm or dissection identified. There is no filling defect to suggest pulmonary embolism. There are increased markings in the left lower lobe consistent with pneumonia. There are a few scattered sites of adenopathy. There is right paratracheal adenopathy measuring 15 mm, unchanged, borderline prevascular lymph nodes measuring up to 9 mm, unchanged, and stable right hilar adenopathy. There is gynecomastia. Limited imaging of the upper abdomen demonstrates cholelithiasis. IMPRESSION: 1. No evidence for PE on this exam. 2. Mild scattered adenopathy, likely benign reactive. 3. Left lower lobe pneumonia. Reviewed, Interpreted and Dictated by Juan Alberto Overton MD Transcribed by Hannah Bhat Authenticated and [facility]
[2024-03-07] MEDS: SODIUM CHLORIDE 3% 15ML NEB 3 ML IH (14:42)
[2024-03-07 14:47] LABS: Bacteria,Urine Trace /lpf; Squamous Epithelial Cell,Urine Occasional #/hpf (0-5)
[2024-03-07] MEDS: CEFEPIME HCL 2 GM in 0.9 % SODIUM CHLORIDE 100 ML IV (15:12)
[2024-03-07] MEDS: BUMETANIDE 1MG/4ML VIAL 2 MG IV (15:12)
[2024-03-07] MEDS: VANCOMYCIN HCL 2,000 MG in 0.9 % SODIUM CHLORIDE 250 ML 125 MG IV (15:13)
[2024-03-07] MEDS: VANCOMYCIN CONSULT REQUEST 1 EACH NOTAPPLIC (15:16)
[2024-03-07] MEDS: SODIUM CHLORIDE 0.9% 10ML SYR (RAD ONLY) 10 ML IV (15:19)
[2024-03-07] MEDS: IOPAMIDOL-370 (76%);100ML BOTTLE 80 ML IV (15:19)
[2024-03-07] MEDS: 0.9 % SODIUM CHLORIDE 50 ML VIAL IV (15:19)
[2024-03-07 15:23] LABS: HIV Combo NEGATIVE (Negative)
--- NOTE | 2024-03-07 15:23 | PC.NURSE ---
PT ARRIVED BACK TO ROOM VIA WHEELCHAIR FROM CT
[2024-03-07 15:44] LABS: Respiratory Syncytial Virus Detected (NotDetected)
--- NOTE | 2024-03-07 16:03 | PC.NURSE ---
DR ARMSTRONG SPEAKING WITH DR MORA FOR ADMISSION
--- NOTE | 2024-03-07 17:04 | PC.NURSE ---
Patient in room. Needs nothing at this time.
[2024-03-07 18:00] LABS: Reflex Lactic Add Lactic Reflex
--- NOTE | 2024-03-07 18:00 | PC.NURSE ---
report called to benjamin kaye rn
--- NOTE | 2024-03-07 18:17 | PC.NURSE ---
critical troponin of 0.20 reported to Elvia TIRADO 2nd floor, Elvia states that she will notify of results
--- NOTE | 2024-03-07 18:49 | EXP.HP ---
History of Present Illness *Admission Date: 03/07/24 *Reason for visit:: Short of breath, orthopnea *History of present illness: 73-year-old male with significant past medical history of interstitial lung disease, ISAAC on CPAP, home O2 at night, hypertension, hyperlipidemia, chronic anticoagulation with Coumadin, CHF, pulmonary hypertension, and aortic valve stenosis. He presented to the ER with worsening cough and shortness of breath over the past 3 to 4 days. Symptoms have progressed. His primary care prescribed antibiotics 4 days ago for bronchitis/pneumonia. Symptoms are just not improved. He has been using his nebulizer at home. Having a hard time laying flat to sleep. Denies any chest pain, syncope, increased confusion, nausea or vomiting. Has had some increased swelling in his legs. Workup in the ER concerning for increased/worsening respiratory failure and increased volume. Found to have left lower lobe pneumonia on chest imaging. Comprehensive respiratory panel positive for RSV. Necessitating 5 to 6 L to maintain sats above 90%. Medicine was consulted for admission and further management of acute on chronic respiratory failure and CHF exacerbation in the setting of RSV pneumonia. On arrival to the floor, patient is more comfortable on 5 L. Denies any chest pain. History obtained from patient and his ex- who is his caregiver. Alert and oriented on exam. [facility] Disclaimer: The information contained in this section may have been updated after the patient was seen, as this information can be updated by other users. Medical History SNHL (sensorineural hearing loss) ILD (interstitial lung disease) Sleep apnea Gall stone History of sleep apnea COPD exacerbation Allergic rhinitis Restrictive lung disease Allergic rhinitis History of smoking 30 or more pack years Dyspnea on exertion COPD (chronic obstructive pulmonary disease) Dyspnea on exertion Moderate aortic stenosis Mild aortic stenosis Pre-op evaluation HLD (hyperlipidemia) Pulmonary embolism CHF (congestive heart failure) Pulmonary hypertension HHD (hypertensive heart disease) CAD (coronary artery disease) DVT (deep venous thrombosis) Fatigue HTN (hypertension) Aortic valve stenosis Surgical History Status post arthroscopy of hip History of arthroscopic knee surgery Family History Stroke Social History Smoking Status: Former smoker tobacco type: cigarettes second hand exposure: No alcohol intake: never substance use type: denies use current occupational status: retired Travel in the last 8 weeks: Inside the [place] household members: significant other housing: house current occupational exposures/hazards: No caffeine: Yes Have you lived/traveled outside [place] in past 30 days?: No Contact w/someone who lives/traveled outside US past 30 days?: No Exposure to someone with infectious disease in past 14 days?: No Do you have a fever (greater than 100.4 F or 38 C)?: No Have you tested positive for COVID-19: No Exposed to someone with COVID-19 in past 14 days?: No Do you have a sore throat?: No Do you have a cough?: No Do you have any weakness?: No Do you have any diarrhea?: No Are you experiencing any unusual bleeding?: No Do you have any muscle aches/pain?: No Do you have any abdominal pain?: No Are you experiencing loss of taste or smell?: No Other Medical History Have you received the Flu Vaccine for this season: Yes Have you received the Pneumonia Vaccine: Yes Review of Systems Review of Systems Review of systems (narrative): 14 point review of systems performed, pertinent positives and negatives as per HPI Meds Home Medications and Allergies Home Medications ?Medication ?Instructions ?Recorded ?Confirmed ?Type warfarin 5 mg tablet 5 mg PO MOWEFR Blood thinner 06/25/21 03/02/24 History warfarin 5 mg tablet 7.5 mg PO SUTUTHSA Blood thinner 12/01/21 03/02/24 History citalopram 20 mg tablet 20 mg PO DAILY dementia 30 days 12/22/22 03/02/24 Rx #90 tabs ipratropium 0.5 mg-albuterol 3 mg 3 ml inhalation QID PRN shortness 02/15/23 03/02/24 Rx (2.5 mg base)/3 mL nebulization of breath or wheezing 90 days #270 soln mL bumetanide 1 mg tablet 2 mg (2 x 1 mg) PO DAILY #180 tabs 04/13/23 03/02/24 Rx atorvastatin 80 mg tablet See Rx Instructions .Route 07/01/23 03/02/24 Rx .COMPLEX #90 tabs fluticasone fur. 100 mcg-umeclid 1 inh inhalation DAILY 90 days #90 10/07/23 03/02/24 Rx 62.5 mcg-vilant 25 mcg ea inhalat.powder (Trelegy Ellipta) levocetirizine 5 mg tablet 5 mg PO DAILY 10/11/23 03/02/24 History mupirocin 2 % topical ointment 1 ea topical DAILY 10/11/23 03/02/24 History albuterol sulfate 90 mcg/actuation 1 inh inhalation QID PRN shortness 12/01/23 03/02/24 Rx aerosol inhaler of breath or wheezing 90 days #8.5 grams azelastine 137 mcg (0.1 %) nasal 1 spray intranasal BID 90 days #90 12/01/23 03/02/24 Rx spray mL fluticasone propionate 50 2 spray intranasal DAILY 90 days 12/01/23 03/02/24 Rx mcg/actuation nasal #16 grams spray,suspension (Flonase Allergy Relief) empagliflozin 10 mg tablet 10 mg PO DAILY 12/20/23 03/02/24 History (Jardiance) ergocalciferol (vitamin D2) 1,250 1,250 mcg PO Q2W 12/20/23 03/02/24 History mcg (50,000 unit) capsule memantine 10 mg tablet 10 mg PO BID dementia 30 days #60 12/29/23 03/02/24 Rx tabs thiamine HCl (vitamin B1) 100 mg 100 mg PO DAILY #30 tabs 12/29/23 03/02/24 Rx tablet carvedilol 3.125 mg tablet 3.125 mg PO BID 01/10/24 03/02/24 History levothyroxine 50 mcg tablet 50 mcg PO DAILY . #90 tabs 01/10/24 03/02/24 Rx enoxaparin 120 mg/0.8 mL 120 mg (0.8 mL) SQ Q12H #16 mL 02/09/24 03/02/24 Rx subcutaneous syringe benzonatate 100 mg capsule 100 mg PO BID PRN cough #20 caps 03/02/24 03/02/24 Rx cephalexin 500 mg capsule 500 mg PO BID #20 caps 03/03/24 Rx prednisone 20 mg tablet 20 mg PO BID #8 tabs 03/03/24 Rx New Prescriptions to Start Prescriptions: Allergies Allergy/AdvReac Type Severity Reaction Status Date / Time No Known Allergies Allergy Verified 03/02/24 11:09 Exam Data for Last 24 hours Vital signs and Labs for Last 24 Hours: Temp Pulse Resp BP Pulse Ox O2 Del Method O2 Flow Rate 97.9 F 78 22 133/75 94 L Nasal Cannula 5 03/07/24 18:00 03/07/24 18:00 03/07/24 18:00 03/07/24 18:00 03/07/24 18:00 03/07/24 18:00 03/07/24 18:00 Laboratory Results - last 24 hr 03/07/24 13:35: Urine Color Yellow, Urine Appearance Clear, Urine pH 6.0, Ur Specific [place] 1.010, Urine Protein Trace, Urine Glucose (UA) 3+, Urine Ketones Negative, Urine Blood Negative, Urine Nitrate Negative, Urine Bilirubin Negative, Urine Urobilinogen 0.2, Ur Leukocyte Esterase 1+ A, Urine RBC None, Urine WBC 10-20, Ur Squamous Epith Cells Occasional, Urine Bacteria Trace 03/07/24 13:44: WBC 7.7, RBC 5.25, Hgb 18.0, Hct 50.6, MCV 96.4 H, MCH 34.2 H, MCHC 35.5 H, RDW 15.3, Plt Count 432 H, MPV 10.1, Neut % (Auto) 1.3 L, Lymph % (Auto) 98.4 H, [place] % (Auto) 0.2 L, Eos % (Auto) 0.1, Baso % (Auto) 6.4 H, Neut # (Auto) 0.1 L*, Lymph # (Auto) 7.6 H, [place] # (Auto) 0.0 L, Eos # (Auto) 0.0, Baso # (Auto) 0.5 H, Total Counted 100, Neutrophils % (Manual) 55, Lymphocytes % (Manual) 33, Monocytes % (Manual) 12 H, Platelet Estimate Slight increase, RBC Morphology Normal, Anisocytosis 1+, PT 16.1 H, INR 1.50 H, D-Dimer 0.96 H, Sodium 142, Potassium 3.5, Chloride 105, Carbon Dioxide 27, Anion Gap 13.5, BUN 24 H, Creatinine 1.30 H, Estimated Creat Clear 87, Estimated GFR 54 L, Est GFR ( Amer) 66, Glucose 91, Calcium 9.1, Magnesium 2.1, Total Bilirubin 0.9, AST 47, ALT 56, Alkaline Phosphatase 102, Troponin I 0.03, C-Reactive Protein 2.8, NT-Pro-B Natriuret Pep 1070 H, Total Protein 7.4, Albumin 4.4, Globulin 3.0, Albumin/Globulin Ratio 1.5, Procalcitonin 0.057 03/07/24 13:45: HIV Ag/Ab Combo Qual Negative 03/07/24 13:56: VBG pH 7.34, VBG pCO2 46.3, VBG pO2 46.9 H, VBG HCO3 24.3, VBG Total CO2 25.7, VBG O2 Saturation 82.9 H, VBG Base Excess -1.5, VBG Lactic Acid 4.5 H 03/07/24 13:59: Chlamy pneumoniae PCR Not detected, Adenovirus (PCR) Not detected, B. pertussis DNA (PCR) Not detected, Coronavirus OC43 (PCR) Not detected, Coronavirus HKU1 (PCR) Not detected, Coronavirus 229E (PCR) Not detected, SARS-CoV-2 (PCR) Not detected, Coronavirus NL63 (PCR) Not detected, Human Metapneumovir PCR Not detected, Influenza A (H1) PCR Not detected, Influ A (H1N1/09) PCR Not detected, Influenza A (H3) PCR Not detected, Influenza Type A (PCR) Not detected, Influenza Type B (PCR) Not detected, M. pneumoniae (PCR) Not detected, Parainfluenza 1 (PCR) Not detected, Parainfluenza 2 (PCR) Not detected, Parainfluenza 3 (PCR) Not detected, Parainfluenza 4 (PCR) Not detected, RSV (PCR) Detected A, Entero/Rhino (PCR) Not detected 03/07/24 17:48: Troponin I 0.20 H I & O for Last 24 hours: Intake & Output 03/04/24 03/05/24 03/06/24 03/07/24 23:59 23:59 23:59 23:59 Weight 117.934 kg Constitutional Constitutional: no acute distress, obese, chronically ill appearing and cooperative *Routine HEENT Exam Head: Present normocephalic and cushingoid faces Eye: Present EOMI and PERRL ENT: Present mucous membranes moist *Routine Neck Exam Neck: Present supple; Absent lymphadenopathy *Routine Respiratory Exam Respiratory: Present prolonged expiratory phase, wheezes, crackles and diminished air movement; Absent respiratory distress or rhonchi *Routine Cardiovascular Exam Cardiovascular: Present RRR *Routine Abdominal Exam Abdominal: Present soft and normoactive bowel sounds; Absent tenderness *Routine Rectal Exam Rectal:: deferred *Routine Genitalia Exam Genitalia:: deferred *Routine Extremities Exam Extremities: Present edema (2+ to knees); Absent cyanosis or clubbing *Routine Skin Exam Skin: Present warm; Absent rash *Routine Neurological Exam Neurological: Present alert and oriented X3; Absent altered mental status Comments: hard of hearing Assessment and Plan *Assessment and plan (1) Sepsis: Status: Acute Category: Medical Code(s): A41.9 - Sepsis, unspecified organism (2) CHF exacerbation: Status: Acute Category: Medical Code(s): I50.9 - Heart failure, unspecified (3) Acute hypoxemic respiratory failure: Status: Acute Category: Medical Code(s): J96.01 - Acute respiratory failure with hypoxia (4) RSV (respiratory syncytial virus pneumonia): Status: Acute Category: Medical Code(s): J12.1 - Respiratory syncytial virus pneumonia (5) NSTEMI (non-ST elevated myocardial infarction): Status: Acute Category: Medical Code(s): I21.4 - Non-ST elevation (NSTEMI) myocardial infarction (6) Neutropenia: Status: Acute Category: Medical Code(s): D70.9 - Neutropenia, unspecified (7) MIGUEL A (acute kidney injury): Status: Acute Category: Medical Code(s): N17.9 - Acute kidney failure, unspecified (8) Chronic respiratory failure: Problem Comment: On Astral and O2 at night Status: Chronic Qualifiers: Respiratory failure complication: hypoxia Qualified Code(s): J96.11 - Chronic respiratory failure with hypoxia Category: Medical Code(s): J96.10 - Chronic respiratory failure, unspecified whether with hypoxia or hypercapnia (9) ISAAC (obstructive sleep apnea): Problem Comment: Stable Status: Chronic Category: Medical Code(s): G47.33 - Obstructive sleep apnea (adult) (pediatric) (10) Memory loss or impairment: Problem Comment: He was started on Namenda by Dr. Hi, previous PCP. 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 06/2023 brain MRI, B12, folate, TSH: No significant abnormalities. 12/29/2023: Stable Status: Chronic Category: Medical Code(s): R41.3 - Other amnesia (11) Obesity: Status: Acute Qualifiers: Body mass index: BMI 40.0-44.9 Obesity classification: adult class 3 (BMI >= 40) Obesity type: due to excess calories Serious obesity comorbidity presence: with serious comorbidity Qualified Code(s): E66.01 - Morbid (severe) obesity due to excess calories; Z68.41 - Body mass index [BMI] 40.0-44.9, adult Category: Medical Code(s): E66.9 - Obesity, unspecified (12) CKD (chronic kidney disease) stage 3, GFR 30-59 ml/min: Status: Chronic Qualifiers: Chronic kidney disease stage 3 subtype: stage 3a (GFR 45-59) Qualified Code(s): N18.31 - Chronic kidney disease, stage 3a Category: Medical Code(s): N18.30 - Chronic kidney disease, stage 3 unspecified (13) COPD exacerbation: Status: Chronic Category: Medical Code(s): J44.1 - Chronic obstructive pulmonary disease with (acute) exacerbation (14) DVT (deep venous thrombosis): Status: Resolved Category: Medical Code(s): I82.409 - Acute embolism and thrombosis of unspecified deep veins of unspecified lower extremity (15) Aortic valve stenosis: Status: Chronic Qualifiers: Cardiac valve disease etiology: etiology unspecified Qualified Code(s): I35.0 - Nonrheumatic aortic (valve) stenosis Category: Medical Code(s): I35.0 - Nonrheumatic aortic (valve) stenosis (16) History of pulmonary embolism: Status: Chronic Category: Medical Code(s): Z86.711 - Personal history of pulmonary embolism (17) Pulmonary hypertension: Status: Chronic Category: Medical Code(s): I27.20 - Pulmonary hypertension, unspecified Plan 73-year-old male with multiple comorbidities. Presents with worsening shortness of breath over the past 3 to 4 days. Failed outpatient therapy with antibiotics. Workup in the ER concerning for pneumonia, acute on chronic hypoxemic respiratory failure, RSV, CHF exacerbation. Case discussed with ER physician, request admission for further management. I agreed to admit for further treatment including diuresis and antibiotic therapy. Will consult cardiology and pulmonology to assist with care. Problems addressed as follows: Acute on chronic hypoxic respiratory failure RSV pneumonia Neutropenia - White count normal at 7.7 however has neutropenia with neutrophils of 100 with 98% lymphocytes. -Procalcitonin normal at 0.057. -Continue empiric cefepime 2 g twice daily pending culture results. Respiratory panel positive for RSV. Likely culprit of patient's symptoms as he was on cefdinir prior to admission and symptoms were not improving - Blood gas showing hypoxia on VBG. -DuoNebs every 6 hours -Pulmonology consulted to assist with care -Continue Trelegy 100 inhaler daily - Per my review of chest CT, airspace disease in left lower lobe. No apparent PEs on CTA. Acute on chronic heart failure with preserved ejection fraction NSTEMI -BNP of 1000, Second troponin 0.2 up from 0.01. No chest pain. EKG with no ischemic changes. Likely supply/demand mismatch in the setting of hypoxia and pneumonia. Will have cardiology evaluate patient in the morning. -Continue carvedilol 3.125 mg twice daily, continue Jardiance 10 mg daily -Continue Bumex 2 mg IV twice daily, received 1 dose in the ER. Continue levothyroxine 50 g daily for hypothyroid Mild cognitive impairment: Continues citalopram 20 mg daily, memantine 10 mg twice daily. MIGUEL A on CKD. Baseline appears to be 1-1.1. Elevated 1.3 with BUN of 24. Electrolytes normal with magnesium 2.1, potassium 3.5, sodium 142. Caution with nephrotoxins. Repeat CBC, CMP, magnesium ordered for the morning. 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 Subtherapeutic with INR of 1.5. Will administer Lovenox 1 mg/kg subcu once. Increase warfarin to 7.5 daily. Repeat INR ordered for the morning. Full code Cardiac diet Warfarin, INR pending in the morning. INR 1.5 on admission
[2024-03-07 19:14] LABS: Lactic Acid Follow Up (RFLX 1) 2.1 mmol/L (0.7-2.1)
[2024-03-07] MEDS: IPRATROPIUM/ALBUTEROL 3 ML NEB IH (19:15)
[2024-03-07 20:32] LABS: Troponin I 0.19 ng/ml (0.00-0.034)
[2024-03-07 20:57] LABS: Reflex Lactic (2 hrs) Add Lactic Reflex
[2024-03-07] MEDS: ENOXAPARIN 100MG/ML SYRINGE 120 MG SUBCUT (21:11)
[2024-03-07] MEDS: MEMANTINE 10MG TABLET 10 MG PO (21:12)
[2024-03-07] MEDS: CARVEDILOL 3.125MG TABLET 3.125 MG PO (21:12)
[2024-03-07 21:46] LABS: Lactic Acid Follow up (RFLX 2) 4.2 mmol/L (0.7-2.1)
--- NOTE | 2024-03-07 23:10 | EXP.EVENT.NO ---
Patient's lactic acid increased from 2.1 to above 4 overnight. Patient not complaining of abdominal discomfort, and currently being treated for CHF exacerbation on IV antibiotics. Will continue IV antibiotics. See no current reason to start maintenance IV fluids given patient being diuresed for CHF exacerbation. Will follow lactic acid trends closely and repeat in AM. If patient develops abdominal pain, low threshold to perform CTA abdomen/pelvis looking for abdominal ischemia.
[2024-03-08] VITALS (10 sets, daily range): BP systolic 112–145; BP diastolic 60–90; PULSE 65–87; RESP 16–20; TEMP 36.3–37.1; O2SAT 90–98; BMI 40.6
[2024-03-08] MEDS: IPRATROPIUM/ALBUTEROL 3 ML NEB IH ×2 (00:08→06:15)
[2024-03-08] MEDS: CEFEPIME HCL 2 GM in 0.9 % SODIUM CHLORIDE 100 ML IV ×2 (03:59→10:55)
[2024-03-08 06:26] LABS: Hematocrit 46.8 % (42.0-52.0); Hemoglobin 16.4 g/dL (14.1-18.0); Lactic Acid 1.9 mmol/L (0.7-2.1); Mean Corpuscular Volume 97.3 fl (80-94); Red Blood Count 4.81 M/mm3 (4.60-6.20); White Blood Count 17.9 K/mm3 (4.8-10.8)
[2024-03-08 06:27] LABS: Basophils # 0.1 K/mm3 (0-0.2); Basophils % 0.3 % (0.1-2.0); Eosinophils % 0.1 % (0.1-12.0); INR 1.55 (0.9-1.1); Lymphocytes # 3.3 K/mm3 (0.7-4.5); Lymphocytes % 18.5 % (10-50); Mean Corpuscular Hemoglobin 34.1 pg (27.0-31.2); Mean Platelet Volume 11.3 fl (7.4-10.4); Monocytes # 0.8 K/mm3 (0.1-1.0); Monocytes % 4.3 % (1.7-9.3); Neutrophils # 13.5 K/mm3 (1.8-7.8); Neutrophils % 75.6 % (37.0-80.0); Platelet Count 421 K/mm3 (142-424); Prothrombin Time 16.6 seconds (10.1-12.5); Red Cell Distribution Width 13.5 % (11.5-17.5)
[2024-03-08 06:28] LABS: Albumin Level 3.7 g/dl (3.5-5.0); Chloride 102 mmol/L (98-107)
[2024-03-08 06:29] LABS: MANUAL DIFFERENTIAL MANUAL DIFFERENTIAL (MANUAL DIFF); Potassium 3.9 mmoL/L (3.5-5.1); Sodium 133 mmol/L (136-145)
[2024-03-08 06:31] LABS: Alanine Aminotransferase 44 U/L (12-78); Albumin/Globulin Ratio 1.4 (1.1-1.8); Anion Gap 7.9 mEq/L (5-15); Aspartate Amino Transferase 39 U/L (17-59); Blood Urea Nitrogen 29 mg/dl (9-20); Carbon Dioxide 27 mmol/L (22.0-30.0); Creatinine Clearance Estimated 47 mL/min (50-200); Estimated Glomerular Filt Rate 54 ml/min (>60); GFR (African American) 66 ML/MIN (>60); Globulin 2.6 g/dL (1.3-3.2); Total Protein,Serum 6.3 g/dl (6.3-8.2)
[2024-03-08 06:32] LABS: Alkaline Phosphatase 93 U/L (38-126); Bilirubin,Total 0.9 mg/dl (0.2-1.3); Calcium 8.3 mg/dl (8.4-10.2); Glucose 140 mg/dl (74-100); Magnesium 2.5 mg/dl (1.6-2.3)
[2024-03-08 08:48] LABS: HCV Ab Non Reactive (Non Reactive)
[2024-03-08] MEDS: ENOXAPARIN 120MG/0.8ML SYRINGE 120 MG SUBCUT ×2 (09:21→20:32)
[2024-03-08] MEDS: BUMETANIDE 1MG/4ML VIAL 2 MG IV ×2 (09:21→17:19)
[2024-03-08] MEDS: CARVEDILOL 3.125MG TABLET 3.125 MG PO ×2 (09:22→20:32)
[2024-03-08] MEDS: LEVOTHYROXINE 50MCG (0.05MG) TAB 50 MCG PO (09:23)
[2024-03-08] MEDS: EMPAGLIFLOZIN 10MG TABLET 10 MG PO (09:23)
[2024-03-08] MEDS: CITALOPRAM 20MG TABLET 20 MG PO (09:23)
[2024-03-08] MEDS: MEMANTINE 10MG TABLET 10 MG PO ×2 (09:23→20:32)
--- NOTE | 2024-03-08 09:35 | HMH.PHAINT1 ---
Pharmacy Intervention Comments: MEDICATION RECONCILIATION COMPLETED ON PATIENT USING EXTERNAL FILL HISTORY FROM PHARMACY. -ALYSIA GRACIA, MANOJD
[2024-03-08 09:50] LABS: Lymphocytes % 18 % (10-50); Monocytes % 2 % (2-9); Neutrophils % 80 % (42-76); Platelet Estimate Normal; RBC Morphology Normal; Total Cells Counted 100
--- NOTE | 2024-03-08 09:51 | EXP.PULM.CON ---
History of Present Illness History of present illness: Mr. Carrillo is a 73-year-old male no significant smoking history exertional dyspnea and restrictive lung disease lung volumes with imaging did not show any obvious interstitial lung disease and negative autoimmune workup, COPD, exertional hypoxia, moderate aortic stenosis possible diastolic dysfunction, most recent echo from September 2011 with normal RV size and function, prior history of pulmonary embolism currently on warfarin presented to the ER with worsening respiratory distress and pulmonary was called for further evaluation and management. Upon further questioning patient admits worsening respiratory distress and hypoxic episodes prior to admission. Denies any known sick contacts. [facility] Disclaimer: The information contained in this section may have been updated after the patient was seen, as this information can be updated by other users. Medical History (Updated 03/08/24 @ 11:47 by Skyler Guerra MD) Acute and chronic respiratory failure with hypoxia SNHL (sensorineural hearing loss) ILD (interstitial lung disease) Sleep apnea [place] History of sleep apnea COPD exacerbation Allergic rhinitis Restrictive lung disease Allergic rhinitis History of smoking 30 or more pack years Dyspnea on exertion COPD (chronic obstructive pulmonary disease) Dyspnea on exertion Moderate aortic stenosis Mild aortic stenosis Pre-op evaluation HLD (hyperlipidemia) Pulmonary embolism CHF (congestive heart failure) Pulmonary hypertension HHD (hypertensive heart disease) CAD (coronary artery disease) DVT (deep venous thrombosis) Fatigue HTN (hypertension) Aortic valve stenosis Surgical History Status post arthroscopy of hip History of arthroscopic knee surgery Family History Stroke Social History Smoking Status: Former smoker tobacco type: cigarettes second hand exposure: No alcohol intake: never substance use type: denies use current occupational status: retired Travel in the last 8 weeks: Inside the [place] household members: significant other housing: house current occupational exposures/hazards: No caffeine: Yes Have you lived/traveled outside [place] in past 30 days?: No Contact w/someone who lives/traveled outside [place] past 30 days?: No Exposure to someone with infectious disease in past 14 days?: No Do you have a fever (greater than 100.4 F or 38 C)?: No Have you tested positive for COVID-19: No Exposed to someone with COVID-19 in past 14 days?: No Do you have a sore throat?: No Do you have a cough?: No Do you have any weakness?: No Do you have any diarrhea?: No Are you experiencing any unusual bleeding?: No Do you have any muscle aches/pain?: No Do you have any abdominal pain?: No Are you experiencing loss of taste or smell?: No Review of Systems Constitutional Constitutional: Reports anorexia, Reports body ache(s), Reports fatigue and Reports snoring Eyes Eyes: Denies eye discharge, Denies dry eyes, Denies irritation and Denies itchy eyes ENT Ears, Nose, Mouth, and Throat: Denies epistaxis, Denies facial pain, Denies lip swelling and Denies throat swelling *Cardiovascular Cardiovascular: Reports dyspnea, Reports dyspnea on exertion, Reports leg edema and Reports orthopnea *Respiratory Respiratory: Denies change in phlegm color, Reports chest congestion, Reports cough, Reports dyspnea, Reports dyspnea on exertion, Denies excessive phlegm production, Reports snoring and Reports wheezing *Gastrointestinal Gastrointestinal: Denies abdominal pain, Denies belching and Denies cramping *Musculoskeletal Musculoskeletal: Reports back pain, Reports myalgias and Reports other (No small joint swelling or Pain) Psychiatric Psychiatric: Denies homicidal ideation and Denies suicidal ideation Endocrine Endocrine: Reports fatigue and Denies heat intolerance Hematologic/Lymphatic Hematologic/Lymphatic: Denies easy bleeding and Denies lymphadenopathy Allergic/Immunologic Allergic/Immunologic: Denies itchy eyes, Denies lip swelling, Denies throat swelling and Reports wheezing Pulmonology Exam Inpatient Vital signs and Labs for Last 24 Hours: Temp Pulse Resp BP Pulse Ox O2 Del Method O2 Flow Rate 97.5 F L 78 17 112/68 95 Nasal Cannula 5 03/08/24 08:00 03/08/24 08:00 03/08/24 08:00 03/08/24 08:00 03/08/24 08:00 03/08/24 08:00 03/08/24 08:00 Laboratory Results - last 24 hr 03/07/24 13:35: Urine Color Yellow, Urine Appearance Clear, Urine pH 6.0, Ur Specific [place] 1.010, Urine Protein Trace, Urine Glucose (UA) 3+, Urine Ketones Negative, Urine Blood Negative, Urine Nitrate Negative, Urine Bilirubin Negative, Urine Urobilinogen 0.2, Ur Leukocyte Esterase 1+ A, Urine RBC None, Urine WBC 10-20, Ur Squamous Epith Cells Occasional, Urine Bacteria Trace 03/07/24 13:44: WBC 7.7, RBC 5.25, Hgb 18.0, Hct 50.6, MCV 96.4 H, MCH 34.2 H, MCHC 35.5 H, RDW 15.3, Plt Count 432 H, MPV 10.1, Neut % (Auto) 1.3 L, Lymph % (Auto) 98.4 H, [place] % (Auto) 0.2 L, Eos % (Auto) 0.1, Baso % (Auto) 6.4 H, Neut # (Auto) 0.1 L*, Lymph # (Auto) 7.6 H, [place] # (Auto) 0.0 L, Eos # (Auto) 0.0, Baso # (Auto) 0.5 H, Total Counted 100, Neutrophils % (Manual) 55, Lymphocytes % (Manual) 33, Monocytes % (Manual) 12 H, Platelet Estimate Slight increase, RBC Morphology Normal, Anisocytosis 1+, PT 16.1 H, INR 1.50 H, D-Dimer 0.96 H, Sodium 142, Potassium 3.5, Chloride 105, Carbon Dioxide 27, Anion Gap 13.5, BUN 24 H, Creatinine 1.30 H, Estimated Creat Clear 87, Estimated GFR 54 L, Est GFR ( Amer) 66, Glucose 91, Calcium 9.1, Magnesium 2.1, Total Bilirubin 0.9, AST 47, ALT 56, Alkaline Phosphatase 102, Troponin I 0.03, C-Reactive Protein 2.8, NT-Pro-B Natriuret Pep 1070 H, Total Protein 7.4, Albumin 4.4, Globulin 3.0, Albumin/Globulin Ratio 1.5, Procalcitonin 0.057 03/07/24 13:45: Hepatitis C Antibody Non reactive, HIV Ag/Ab Combo Qual Negative 03/07/24 13:56: VBG pH 7.34, VBG pCO2 46.3, VBG pO2 46.9 H, VBG HCO3 24.3, VBG Total CO2 25.7, VBG O2 Saturation 82.9 H, VBG Base Excess -1.5, VBG Lactic Acid 4.5 H 03/07/24 13:59: Chlamy pneumoniae PCR Not detected, Adenovirus (PCR) Not detected, B. pertussis DNA (PCR) Not detected, Coronavirus OC43 (PCR) Not detected, Coronavirus HKU1 (PCR) Not detected, Coronavirus 229E (PCR) Not detected, SARS-CoV-2 (PCR) Not detected, Coronavirus NL63 (PCR) Not detected, Human Metapneumovir PCR Not detected, Influenza A (H1) PCR Not detected, Influ A (H1N1/09) PCR Not detected, Influenza A (H3) PCR Not detected, Influenza Type A (PCR) Not detected, Influenza Type B (PCR) Not detected, M. pneumoniae (PCR) Not detected, Parainfluenza 1 (PCR) Not detected, Parainfluenza 2 (PCR) Not detected, Parainfluenza 3 (PCR) Not detected, Parainfluenza 4 (PCR) Not detected, RSV (PCR) Detected A, Entero/Rhino (PCR) Not detected 03/07/24 17:48: Troponin I 0.20 H 03/07/24 18:49: Lactate 2.1 03/07/24 20:00: Troponin I 0.19 H 03/07/24 21:14: Lactate 4.2 H 03/08/24 06:03: WBC 17.9 H D, RBC 4.81, Hgb 16.4, Hct 46.8, MCV 97.3 H, MCH 34.1 H, MCHC 35.0, RDW 13.5, Plt Count 421, MPV 11.3 H, Neut % (Auto) 75.6, Lymph % (Auto) 18.5, [place] % (Auto) 4.3, Eos % (Auto) 0.1, Baso % (Auto) 0.3, Neut # (Auto) 13.5 H, Lymph # (Auto) 3.3, [place] # (Auto) 0.8, Eos # (Auto) 0.0, Baso # (Auto) 0.1, Total Counted 100, Neutrophils % (Manual) 80 H, Lymphocytes % (Manual) 18, Monocytes % (Manual) 2, Platelet Estimate Normal, RBC Morphology Normal, PT 16.6 H, INR 1.55 H, Sodium 133 L, Potassium 3.9, Chloride 102, Carbon Dioxide 27, Anion Gap 7.9, BUN 29 H, Creatinine 1.30 H, Estimated Creat Clear 47, Estimated GFR 54 L, Est GFR ( Amer) 66, Glucose 140 H D, Lactate 1.9, Calcium 8.3 L, Magnesium 2.5 H D, Total Bilirubin 0.9, AST 39, ALT 44, Alkaline Phosphatase 93, Total Protein 6.3, Albumin 3.7 D, Globulin 2.6, Albumin/Globulin Ratio 1.4 I & O for Labs for Last 24 Hours: Intake & Output 03/05/24 03/06/24 03/07/24 03/08/24 23:59 23:59 23:59 23:59 Intake Total 720 / 720 Output Total 0 / 0 0 / 0 Balance 0 / 0 720 / 720 Weight 259 lb 4 oz 259 lb 4.006 oz Microbiology Reports for the Last 24 Hours: Microbiology 03/07/24 Unknown Sputum - Expectorated Sputum Gram Stain - Final Constitutional: Present moderate distress Head: Present normocephalic and atraumatic ENT: Present normal exam, normal oropharynx and mucous membranes moist Neck: Present normal inspection and full ROM Respiratory: Present respiratory distress, wheezes and crackles; Absent able to speak in complete sentences Cardiac: Present S1/S2, Tachycardia and radial pulses present GI: Present soft and distention; Absent tenderness or guarding Skin: Present intact; Absent cyanosis or jaundice Neuro: Present alert, awake and oriented x 3 Extremities: Present normal inspection; Absent clubbing or cyanosis Psychiatric: Present normal affect and cooperative Meds Home Medications and Allergies Home Medications ?Medication ?Instructions ?Recorded ?Confirmed ?Type warfarin 5 mg tablet 5 mg PO SUTUWETHSA 06/25/21 03/08/24 History warfarin 5 mg tablet 7.5 mg PO MOFR 12/01/21 03/08/24 History citalopram 20 mg tablet 20 mg PO DAILY dementia 30 days 12/22/22 03/08/24 Rx #90 tabs bumetanide 1 mg tablet 2 mg (2 x 1 mg) PO DAILY #180 tabs 04/13/23 03/08/24 Rx fluticasone fur. 100 mcg-umeclid 1 inh inhalation DAILY 90 days #90 10/07/23 03/08/24 Rx 62.5 mcg-vilant 25 mcg ea inhalat.powder (Trelegy Ellipta) levocetirizine 5 mg tablet 5 mg PO DAILY 10/11/23 03/08/24 History albuterol sulfate 90 mcg/actuation 1 inh inhalation QID PRN shortness 12/01/23 03/08/24 Rx aerosol inhaler of breath or wheezing 90 days #8.5 grams azelastine 137 mcg (0.1 %) nasal 1 spray intranasal BID 90 days #90 12/01/23 03/08/24 Rx spray mL fluticasone propionate 50 2 spray intranasal DAILY 90 days 12/01/23 03/08/24 Rx mcg/actuation nasal #16 grams spray,suspension (Flonase Allergy Relief) empagliflozin 10 mg tablet 10 mg PO DAILY 12/20/23 03/08/24 History (Jardiance) ergocalciferol (vitamin D2) 1,250 1,250 mcg PO Q2W 12/20/23 03/08/24 History mcg (50,000 unit) capsule memantine 10 mg tablet 10 mg PO BID dementia 30 days #60 12/29/23 03/08/24 Rx tabs thiamine HCl (vitamin B1) 100 mg 100 mg PO DAILY #30 tabs 12/29/23 03/08/24 Rx tablet carvedilol 3.125 mg tablet 3.125 mg PO BID 01/10/24 03/08/24 History enoxaparin 120 mg/0.8 mL 120 mg (0.8 mL) SQ Q12H #16 mL 02/09/24 03/08/24 Rx subcutaneous syringe benzonatate 100 mg capsule 100 mg PO BID PRN cough #20 caps 03/02/24 03/08/24 Rx atorvastatin 80 mg tablet 80 mg PO DAILY 03/08/24 03/08/24 History levothyroxine 50 mcg tablet 50 mcg PO DAILY 03/08/24 03/08/24 History New Prescriptions to Start Prescriptions: Allergies Allergy/AdvReac Type Severity Reaction Status Date / Time No Known Allergies Allergy Verified 03/02/24 11:09 Results Laboratory Findings 03/08/24 06:03 03/08/24 06:03 PT/INR, D-dimer PT 16.6 seconds (10.1-12.5) H 03/08/24 06:03 INR 1.55 (0.9-1.1) H 03/08/24 06:03 D-Dimer 0.96 ug/mL (0.0-0.5) H 03/07/24 13:44 Abnormal lab findings: Abnormal Labs 03/07/24 03/07/24 03/07/24 13:35 13:44 13:56 WBC MCV 96.4 H MCH 34.2 H MCHC 35.5 H Plt Count 432 H MPV Neut % (Auto) 1.3 L Lymph % (Auto) 98.4 H [place] % (Auto) 0.2 L Baso % (Auto) 6.4 H Neut # (Auto) 0.1 L* Lymph # (Auto) 7.6 H [place] # (Auto) 0.0 L Baso # (Auto) 0.5 H Neutrophils % (Manual) Monocytes % (Manual) 12 H PT 16.1 H INR 1.50 H D-Dimer 0.96 H VBG pO2 46.9 H VBG O2 Saturation 82.9 H VBG Lactic Acid 4.5 H Sodium BUN 24 H Creatinine 1.30 H Estimated GFR 54 L Glucose Lactate Calcium Magnesium Troponin I NT-Pro-B Natriuret Pep 1070 H Ur Leukocyte Esterase 1+ A RSV (PCR) 03/07/24 03/07/24 03/07/24 13:59 17:48 20:00 WBC MCV MCH MCHC Plt Count MPV Neut % (Auto) Lymph % (Auto) [place] % (Auto) Baso % (Auto) Neut # (Auto) Lymph # (Auto) [place] # (Auto) Baso # (Auto) Neutrophils % (Manual) Monocytes % (Manual) PT INR D-Dimer VBG pO2 VBG O2 Saturation VBG Lactic Acid Sodium BUN Creatinine Estimated GFR Glucose Lactate Calcium Magnesium Troponin I 0.20 H 0.19 H NT-Pro-B Natriuret Pep Ur Leukocyte Esterase RSV (PCR) Detected A 03/07/24 03/08/24 21:14 06:03 WBC 17.9 H D MCV 97.3 H MCH 34.1 H MCHC Plt Count MPV 11.3 H Neut % (Auto) Lymph % (Auto) [place] % (Auto) Baso % (Auto) Neut # (Auto) 13.5 H Lymph # (Auto) [place] # (Auto) Baso # (Auto) Neutrophils % (Manual) 80 H Monocytes % (Manual) PT 16.6 H INR 1.55 H D-Dimer VBG pO2 VBG O2 Saturation VBG Lactic Acid Sodium 133 L BUN 29 H Creatinine 1.30 H Estimated GFR 54 L Glucose 140 H D Lactate 4.2 H Calcium 8.3 L Magnesium 2.5 H D Troponin I NT-Pro-B Natriuret Pep Ur Leukocyte Esterase RSV (PCR) Assessment and Plan *Assessment and plan (1) RSV (respiratory syncytial virus pneumonia): Status: Acute Category: Medical Code(s): J12.1 - Respiratory syncytial virus pneumonia (2) Acute and chronic respiratory failure with hypoxia: Status: Acute Category: Medical Code(s): J96.21 - Acute and chronic respiratory failure with hypoxia Plan Mr. Carrillo is a 73-year-old male no significant smoking history exertional dyspnea and restrictive lung disease lung volumes with imaging did not show any obvious interstitial lung disease and negative autoimmune workup, COPD, exertional hypoxia, moderate aortic stenosis possible diastolic dysfunction, most recent echo from September 2011 with normal RV size and function, prior history of pulmonary embolism currently on warfarin presented to the ER with worsening respiratory distress and pulmonary was called for further evaluation and management. Upon further questioning patient admits worsening respiratory distress and hypoxic episodes prior to admission. Denies any known sick contacts. CT chest upon admission no dense consolidative/airspace changes noted. Lower lobe predominant greater than right groundglass opacities noted. Respiratory viral PCR positive for RSV. Blood gas upon admission did not show any evidence of hypercarbic respiratory failure. Neutrophilic predominant leukocytosis. Plan: -Continue oxygen supplementation to maintain O2 saturation goal of 90% and above. -Continue CPAP therapy at night for his sleep apnea -Antibiotics can be weaned to levofloxacin from pulmonary standpoint -Trelegy 100 inhaler along with DuoNebs 4 times daily as needed -No need for steroids from pulmonary standpoint # Thank you for involving pulmonary in this patient care. Will continue to follow.
[2024-03-08] MEDS: WARFARIN 5MG TABLET 7.5 MG PO (11:03)
[2024-03-08] MEDS: FLUTICASONE/UMECLIDIN/VILANTER 100/62.5/25MCG INHALER 1 PUFF IH (11:27)
--- NOTE | 2024-03-08 11:32 | P.CONCA_ITS ---
Documented by User: [email or web address] Stephenson 03/08/24 11:58 History of Present Illness History of Present Illness Consult date: 03/08/24 Requesting physician: Naresh Moura Consult reason: shortness of breath Chief complaint: SOA, weakness Additional Medical History:: 73-year-old office patient with history of nonobstructive CAD, moderate to severe aortic stenosis left to medical therapy per CT surgery consult in April of this year. He also has history of PE and DVT managed on warfarin as well as microvascular disease of the brain resulting in blurred vision and falls. He suffers with chronic pain and has severe deconditioning, ambulates with a cane. Also has COPD obstructive sleep apnea and interstitial lung disease. Patient had worsening weakness and shortness of breath for greater than 1 week and came to the emergency room yesterday where he was diagnosed with RSV pneumonia. We are consulted due to elevated proBNP of 1070 as well as troponin elevation at 0.[address] of the chest and chest x-ray revealed no acute CHF. I am seeing patient on the floor the next morning, he is using CPAP in the bed. States breathing is somewhat better, has no specific cardiac questions or concerns [facility] Disclaimer: The information contained in this section may have been updated after the patient was seen, as this information can be updated by other users. Medical History Acute and chronic respiratory failure with hypoxia SNHL (sensorineural hearing loss) ILD (interstitial lung disease) Sleep apnea Gall stone History of sleep apnea COPD exacerbation Allergic rhinitis Restrictive lung disease Allergic rhinitis History of smoking 30 or more pack years Dyspnea on exertion COPD (chronic obstructive pulmonary disease) Dyspnea on exertion Moderate aortic stenosis Mild aortic stenosis Pre-op evaluation HLD (hyperlipidemia) Pulmonary embolism CHF (congestive heart failure) Pulmonary hypertension HHD (hypertensive heart disease) CAD (coronary artery disease) DVT (deep venous thrombosis) Fatigue HTN (hypertension) Aortic valve stenosis Surgical History Status post arthroscopy of hip History of arthroscopic knee surgery Family History Other Stroke Social History Smoking Status: Former smoker tobacco type: cigarettes second hand exposure: No alcohol intake: never substance use type: denies use current occupational status: retired Travel in the last 8 weeks: Inside the [place] household members: significant other housing: house current occupational exposures/hazards: No caffeine: Yes Have you lived/traveled outside US in past 30 days?: No Contact w/someone who lives/traveled outside US past 30 days?: No Exposure to someone with infectious disease in past 14 days?: No Do you have a fever (greater than 100.4 F or 38 C)?: No Have you tested positive for COVID-19: No Exposed to someone with COVID-19 in past 14 days?: No Do you have a sore throat?: No Do you have a cough?: No Do you have any weakness?: No Do you have any diarrhea?: No Are you experiencing any unusual bleeding?: No Do you have any muscle aches/pain?: No Do you have any abdominal pain?: No Are you experiencing loss of taste or smell?: No Review of Systems Constitutional Constitutional: Denies fatigue and Denies weakness Eyes Eyes: Denies loss of vision ENT Ears, Nose, Mouth, and Throat: Denies hearing loss and Denies vertigo *Cardiovascular Cardiovascular: Denies chest pain, Denies dyspnea and Denies syncope *Respiratory Respiratory: Denies cough and Denies dyspnea *Gastrointestinal Gastrointestinal: Denies change in stool character, Denies nausea and Denies vomiting *Genitourinary Genitourinary: Denies difficulty urinating *Musculoskeletal Musculoskeletal: Denies muscle weakness Integumentary/Breasts Skin/Breast: Denies changing lesions *Neurologic Neurologic: Denies loss of vision, Denies syncope, Denies vertigo and Denies weakness Endocrine Endocrine: Denies fatigue Exam Data for Last 24 hours Vital signs and Labs for Last 24 Hours: Temp Pulse Resp BP Pulse Ox O2 Del Method O2 Flow Rate 97.5 F L 78 17 112/68 95 Nasal Cannula 5 03/08/24 08:00 03/08/24 08:00 03/08/24 08:00 03/08/24 08:00 03/08/24 08:00 03/08/24 08:00 03/08/24 08:00 Laboratory Results - last 24 hr 03/07/24 13:35: Urine Color Yellow, Urine Appearance Clear, Urine pH 6.0, Ur Specific [place] 1.010, Urine Protein Trace, Urine Glucose (UA) 3+, Urine Ketones Negative, Urine Blood Negative, Urine Nitrate Negative, Urine Bilirubin Negative, Urine Urobilinogen 0.2, Ur Leukocyte Esterase 1+ A, Urine RBC None, Urine WBC 10-20, Ur Squamous Epith Cells Occasional, Urine Bacteria Trace 03/07/24 13:44: WBC 7.7, RBC 5.25, Hgb 18.0, Hct 50.6, MCV 96.4 H, MCH 34.2 H, MCHC 35.5 H, RDW 15.3, Plt Count 432 H, MPV 10.1, Neut % (Auto) 1.3 L, Lymph % (Auto) 98.4 H, Forest % (Auto) 0.2 L, Eos % (Auto) 0.1, Baso % (Auto) 6.4 H, Neut # (Auto) 0.1 L*, Lymph # (Auto) 7.6 H, Forest # (Auto) 0.0 L, Eos # (Auto) 0.0, Baso # (Auto) 0.5 H, Total Counted 100, Neutrophils % (Manual) 55, Lymphocytes % (Manual) 33, Monocytes % (Manual) 12 H, Platelet Estimate Slight increase, RBC Morphology Normal, Anisocytosis 1+, PT 16.1 H, INR 1.50 H, D-Dimer 0.96 H, Sodium 142, Potassium 3.5, Chloride 105, Carbon Dioxide 27, Anion Gap 13.5, BUN 24 H, Creatinine 1.30 H, Estimated Creat Clear 87, Estimated GFR 54 L, Est GFR ( Amer) 66, Glucose 91, Calcium 9.1, Magnesium 2.1, Total Bilirubin 0.9, AST 47, ALT 56, Alkaline Phosphatase 102, Troponin I 0.03, C-Reactive Protein 2.8, NT-Pro-B Natriuret Pep 1070 H, Total Protein 7.4, Albumin 4.4, Globulin 3.0, Albumin/Globulin Ratio 1.5, Procalcitonin 0.057 03/07/24 13:45: Hepatitis C Antibody Non reactive, HIV Ag/Ab Combo Qual Negative 03/07/24 13:56: VBG pH 7.34, VBG pCO2 46.3, VBG pO2 46.9 H, VBG HCO3 24.3, VBG Total CO2 25.7, VBG O2 Saturation 82.9 H, VBG Base Excess -1.5, VBG Lactic Acid 4.5 H 03/07/24 13:59: Chlamy pneumoniae PCR Not detected, Adenovirus (PCR) Not detected, B. pertussis DNA (PCR) Not detected, Coronavirus OC43 (PCR) Not detected, Coronavirus HKU1 (PCR) Not detected, Coronavirus 229E (PCR) Not detected, SARS-CoV-2 (PCR) Not detected, Coronavirus NL63 (PCR) Not detected, Human Metapneumovir PCR Not detected, Influenza A (H1) PCR Not detected, Influ A (H1N1/09) PCR Not detected, Influenza A (H3) PCR Not detected, Influenza Type A (PCR) Not detected, Influenza Type B (PCR) Not detected, M. pneumoniae (PCR) Not detected, Parainfluenza 1 (PCR) Not detected, Parainfluenza 2 (PCR) Not detected, Parainfluenza 3 (PCR) Not detected, Parainfluenza 4 (PCR) Not detected, RSV (PCR) Detected A, Entero/Rhino (PCR) Not detected 03/07/24 17:48: Troponin I 0.20 H 03/07/24 18:49: Lactate 2.1 03/07/24 20:00: Troponin I 0.19 H 03/07/24 21:14: Lactate 4.2 H 03/08/24 06:03: WBC 17.9 H D, RBC 4.81, Hgb 16.4, Hct 46.8, MCV 97.3 H, MCH 34.1 H, MCHC 35.0, RDW 13.5, Plt Count 421, MPV 11.3 H, Neut % (Auto) 75.6, Lymph % (Auto) 18.5, Forest % (Auto) 4.3, Eos % (Auto) 0.1, Baso % (Auto) 0.3, Neut # (Auto) 13.5 H, Lymph # (Auto) 3.3, Forest # (Auto) 0.8, Eos # (Auto) 0.0, Baso # (Auto) 0.1, Total Counted 100, Neutrophils % (Manual) 80 H, Lymphocytes % (Manual) 18, Monocytes % (Manual) 2, Platelet Estimate Normal, RBC Morphology Normal, PT 16.6 H, INR 1.55 H, Sodium 133 L, Potassium 3.9, Chloride 102, Carbon Dioxide 27, Anion Gap 7.9, BUN 29 H, Creatinine 1.30 H, Estimated Creat Clear 47, Estimated GFR 54 L, Est GFR ( Amer) 66, Glucose 140 H D, Lactate 1.9, Calcium 8.3 L, Magnesium 2.5 H D, Total Bilirubin 0.9, AST 39, ALT 44, Alkaline Phosphatase 93, Total Protein 6.3, Albumin 3.7 D, Globulin 2.6, Albumin/Globulin Ratio 1.4 I & O for Last 24 hours: Intake & Output 03/05/24 03/06/24 03/07/24 03/08/24 23:59 23:59 23:59 23:59 Intake Total 720 / 720 Output Total 0 / 0 0 / 0 Balance 0 / 0 720 / 720 Weight 259 lb 4 oz 259 lb 4.006 oz Microbiology Reports for the Last 24 Hours: Microbiology 03/07/24 Unknown Sputum - Expectorated Sputum Gram Stain - Final Constitutional Constitutional: no acute distress, obese and cooperative *Routine HEENT Exam Eye: Present PERRL *Routine Respiratory Exam Respiratory: Present CTA bilaterally; Absent accessory muscle use, wheezes or crackles Comments: reduced airflow throughout *Routine Cardiovascular Exam Cardiovascular: Present RRR, Normal S1 and Normal S2; Absent murmur, gallop or rubs *Routine Abdominal Exam Abdominal: Present soft; Absent tenderness *Routine Extremities Exam Extremities: Present pulses intact; Absent cyanosis or edema *Routine Skin Exam Skin: Present intact; Absent erythema or wounds *Routine Neurological Exam Neurological: Present alert and oriented X3 Routine Psychiatric Exam Psychiatric: Present cooperative [facility] Home Medications and Allergies Home Medications ?Medication ?Instructions ?Recorded ?Confirmed ?Type warfarin 5 mg tablet 5 mg PO SUTUWETHSA 06/25/21 03/08/24 History warfarin 5 mg tablet 7.5 mg PO MOFR 12/01/21 03/08/24 History citalopram 20 mg tablet 20 mg PO DAILY dementia 30 days 12/22/22 03/08/24 Rx #90 tabs bumetanide 1 mg tablet 2 mg (2 x 1 mg) PO DAILY #180 tabs 04/13/23 03/08/24 Rx fluticasone fur. 100 mcg-umeclid 1 inh inhalation DAILY 90 days #90 10/07/23 03/08/24 Rx 62.5 mcg-vilant 25 mcg ea inhalat.powder (Trelegy Ellipta) levocetirizine 5 mg tablet 5 mg PO DAILY 10/11/23 03/08/24 History albuterol sulfate 90 mcg/actuation 1 inh inhalation QID PRN shortness 12/01/23 03/08/24 Rx aerosol inhaler of breath or wheezing 90 days #8.5 grams azelastine 137 mcg (0.1 %) nasal 1 spray intranasal BID 90 days #90 12/01/23 03/08/24 Rx spray mL fluticasone propionate 50 2 spray intranasal DAILY 90 days 12/01/23 03/08/24 Rx mcg/actuation nasal #16 grams spray,suspension (Flonase Allergy Relief) empagliflozin 10 mg tablet 10 mg PO DAILY 12/20/23 03/08/24 History (Jardiance) ergocalciferol (vitamin D2) 1,250 1,250 mcg PO Q2W 12/20/23 03/08/24 History mcg (50,000 unit) capsule memantine 10 mg tablet 10 mg PO BID dementia 30 days #60 12/29/23 03/08/24 Rx tabs thiamine HCl (vitamin B1) 100 mg 100 mg PO DAILY #30 tabs 12/29/23 03/08/24 Rx tablet carvedilol 3.125 mg tablet 3.125 mg PO BID 01/10/24 03/08/24 History enoxaparin 120 mg/0.8 mL 120 mg (0.8 mL) SQ Q12H #16 mL 02/09/24 03/08/24 Rx subcutaneous syringe benzonatate 100 mg capsule 100 mg PO BID PRN cough #20 caps 03/02/24 03/08/24 Rx atorvastatin 80 mg tablet 80 mg PO DAILY 03/08/24 03/08/24 History levothyroxine 50 mcg tablet 50 mcg PO DAILY 03/08/24 03/08/24 History New Prescriptions to Start Prescriptions: Allergies Allergy/AdvReac Type Severity Reaction Status Date / Time No Known Allergies Allergy Verified 03/02/24 11:09 Assessment and Plan *Assessment and plan (1) RSV (respiratory syncytial virus pneumonia): Status: Acute Category: Medical Code(s): J12.1 - Respiratory syncytial virus pneumonia (2) Acute and chronic respiratory failure with hypoxia: Status: Acute Category: Medical Code(s): J96.21 - Acute and chronic respiratory failure with hypoxia (3) NSTEMI (non-ST elevated myocardial infarction): Status: Acute Category: Medical Code(s): I21.4 - Non-ST elevation (NSTEMI) myocardial infarction (4) Sepsis: Status: Acute Category: Medical Code(s): A41.9 - Sepsis, unspecified organism (5) ILD (interstitial lung disease): Status: Acute Category: Medical Code(s): J84.9 - Interstitial pulmonary disease, unspecified Plan Acute on chronic hypoxic respiratory failure -Multifactorial secondary to HFpEF, COPD, obstructive sleep apnea, interstitial lung disease, morbid obesity -Supportive care, pulmonology following -No pulmonary edema noted on imaging HFpEF - ProBNP 1070, no edema on imaging or exam - ECHO 09/2023 - normal Bi-V function, biatrial dioation, moderate - will repeat ECHO here Non obstructive CAD - cont coreg, statin, warfarin Hx of DVT/PE - chronic OAC with Warfarin - on Lovenox here Morbid Obesity, BMI 40 - needs aggressive weight loss via diet and exercise CV stable, will repeat 2D ECHO to look for changes but his is primarly a resp issue. Documented by User: Adan Delatorre MD 03/09/24 23:14 History of Present Illness History of Present Illness History of present illness: 73-year-old office patient with history of nonobstructive CAD, moderate to severe aortic stenosis left to medical therapy per CT surgery consult in April of this year. He also has history of PE and DVT managed on warfarin as well as microvascular disease of the brain resulting in blurred vision and falls. He suffers with chronic pain and has severe deconditioning, ambulates with a cane. Also has COPD obstructive sleep apnea and interstitial lung disease. Patient had worsening weakness and shortness of breath for greater than 1 week and came to the emergency room yesterday where he was diagnosed with RSV pneumonia. We are consulted due to elevated proBNP of 1070 as well as troponin elevation at 0.[address] of the chest and chest x-ray revealed no acute CHF. I am seeing patient on the floor the next morning, he is using CPAP in the bed. States breathing is somewhat better, has no specific cardiac questions or concerns [facility] Medical History Acute and chronic respiratory failure with hypoxia SNHL (sensorineural hearing loss) ILD (interstitial lung disease) Sleep apnea Gall stone History of sleep apnea COPD exacerbation Allergic rhinitis Restrictive lung disease Allergic rhinitis History of smoking 30 or more pack years Dyspnea on exertion COPD (chronic obstructive pulmonary disease) Dyspnea on exertion Moderate aortic stenosis Mild aortic stenosis Pre-op evaluation HLD (hyperlipidemia) Pulmonary embolism CHF (congestive heart failure) Pulmonary hypertension HHD (hypertensive heart disease) CAD (coronary artery disease) DVT (deep venous thrombosis) Fatigue HTN (hypertension) Aortic valve stenosis Surgical History Status post arthroscopy of hip History of arthroscopic knee surgery Family History Other Stroke Social History Smoking Status: Former smoker tobacco type: cigarettes second hand exposure: No alcohol intake: never substance use type: denies use current occupational status: retired Travel in the last 8 weeks: Inside the [place] household members: significant other housing: house current occupational exposures/hazards: No caffeine: Yes Have you lived/traveled outside [place] in past 30 days?: No Contact w/someone who lives/traveled outside US past 30 days?: No Exposure to someone with infectious disease in past 14 days?: No Do you have a fever (greater than 100.4 F or 38 C)?: No Have you tested positive for COVID-19: No Exposed to someone with COVID-19 in past 14 days?: No Do you have a sore throat?: No Do you have a cough?: No Do you have any weakness?: No Do you have any diarrhea?: No Are you experiencing any unusual bleeding?: No Do you have any muscle aches/pain?: No Do you have any abdominal pain?: No Are you experiencing loss of taste or smell?: No Meds Home Medications and Allergies Home Medications ?Medication ?Instructions ?Recorded ?Confirmed ?Type warfarin 5 mg tablet 5 mg PO SUTUWETHSA 06/25/21 03/08/24 History warfarin 5 mg tablet 7.5 mg PO MOFR 12/01/21 03/08/24 History citalopram 20 mg tablet 20 mg PO DAILY dementia 30 days 12/22/22 03/08/24 Rx #90 tabs bumetanide 1 mg tablet 2 mg (2 x 1 mg) PO DAILY #180 tabs 04/13/23 03/08/24 Rx fluticasone fur. 100 mcg-umeclid 1 inh inhalation DAILY 90 days #90 10/07/23 03/08/24 Rx 62.5 mcg-vilant 25 mcg ea inhalat.powder (Trelegy Ellipta) levocetirizine 5 mg tablet 5 mg PO DAILY 10/11/23 03/08/24 History albuterol sulfate 90 mcg/actuation 1 inh inhalation QID PRN shortness 12/01/23 03/08/24 Rx aerosol inhaler of breath or wheezing 90 days #8.5 grams azelastine 137 mcg (0.1 %) nasal 1 spray intranasal BID 90 days #90 12/01/23 03/08/24 Rx spray mL fluticasone propionate 50 2 spray intranasal DAILY 90 days 12/01/23 03/08/24 Rx mcg/actuation nasal #16 grams spray,suspension (Flonase Allergy Relief) empagliflozin 10 mg tablet 10 mg PO DAILY 12/20/23 03/08/24 History (Jardiance) ergocalciferol (vitamin D2) 1,250 1,250 mcg PO Q2W 12/20/23 03/08/24 History mcg (50,000 unit) capsule memantine 10 mg tablet 10 mg PO BID dementia 30 days #60 12/29/23 03/08/24 Rx tabs thiamine HCl (vitamin B1) 100 mg 100 mg PO DAILY #30 tabs 12/29/23 03/08/24 Rx tablet carvedilol 3.125 mg tablet 3.125 mg PO BID 01/10/24 03/08/24 History enoxaparin 120 mg/0.8 mL 120 mg (0.8 mL) SQ Q12H #16 mL 02/09/24 03/08/24 Rx subcutaneous syringe benzonatate 100 mg capsule 100 mg PO BID PRN cough #20 caps 03/02/24 03/08/24 Rx atorvastatin 80 mg tablet 80 mg PO DAILY 03/08/24 03/08/24 History levothyroxine 50 mcg tablet 50 mcg PO DAILY 03/08/24 03/08/24 History New Prescriptions to Start Prescriptions: Allergies Allergy/AdvReac Type Severity Reaction Status Date / Time No Known Allergies Allergy Verified 03/02/24 11:09 Assessment and Plan *Assessment and plan (1) RSV (respiratory syncytial virus pneumonia): Status: Acute Category: Medical Code(s): J12.1 - Respiratory syncytial virus pneumonia (2) Acute and chronic respiratory failure with hypoxia: Status: Acute Category: Medical Code(s): J96.21 - Acute and chronic respiratory failure with hypoxia (3) NSTEMI (non-ST elevated myocardial infarction): Status: Acute Category: Medical Code(s): I21.4 - Non-ST elevation (NSTEMI) myocardial infarction (4) Sepsis: Status: Acute Category: Medical Code(s): A41.9 - Sepsis, unspecified organism (5) ILD (interstitial lung disease): Status: Acute Category: Medical Code(s): J84.9 - Interstitial pulmonary disease, unspecified
[2024-03-08] MEDS: AZELASTINE NASAL SPRAY 30ML BOTTLE NS (20:32)
--- NOTE | 2024-03-08 22:45 | EXP.ACUTE.PN ---
Subjective *Date: 03/08/24 *Time: 23:15 Interval history: Patient still feeling ill, did not wear CPAP as he did not have his tube. Afebrile. Wanting to wear his CPAP all the time. Informed him that it is best only while asleep or napping. Medical Exam Vital signs and Labs for Last 24 Hours: Vital Signs Temp Pulse Pulse Resp BP Pulse Ox O2 Del Method 03/08/24 21:00 Nasal Cannula 03/08/24 20:00 93 L Nasal Cannula 03/08/24 19:47 97.5 F L 74 18 135/73 94 L Nasal Cannula 03/08/24 16:00 97.9 F 69 19 141/72 H 92 L Nasal Cannula 03/08/24 11:57 97.4 F L 75 19 122/60 91 L Nasal Cannula 03/08/24 08:00 97.5 F L 78 17 112/68 95 Nasal Cannula 03/08/24 06:48 Nasal Cannula 03/08/24 06:16 74 03/08/24 06:16 74 03/08/24 06:16 98 Nasal Cannula 03/08/24 05:00 Nasal Cannula 03/08/24 04:00 98.1 F 70 16 141/87 H 94 L Nasal Cannula 03/08/24 03:00 Nasal Cannula 03/08/24 01:00 Nasal Cannula 03/08/24 00:08 85 03/08/24 00:08 87 03/08/24 00:00 98.7 F 65 20 145/90 H 95 Nasal Cannula 03/07/24 23:00 Nasal Cannula O2 Flow Rate 03/08/24 21:00 2 03/08/24 20:00 2 03/08/24 19:47 2 03/08/24 16:00 2 03/08/24 11:57 2 03/08/24 08:00 5 03/08/24 06:48 5 03/08/24 06:16 03/08/24 06:16 03/08/24 06:16 5 03/08/24 05:00 5 03/08/24 04:00 3 03/08/24 03:00 5 03/08/24 01:00 5 03/08/24 00:08 03/08/24 00:08 03/08/24 00:00 5 03/07/24 23:00 5 Intake and Output 03/08/24 03/08/24 03/08/24 07:59 15:59 23:59 Intake Total 1080 / 1560 480 / 1560 Output Total 0 / 600 150 / 600 450 / 600 Balance 0 / 960 930 / 960 30 / 960 Intake: Intake, Oral Amount 1080 / 1560 480 / 1560 Output: Output, Urine Amount 0 / 600 150 / 600 450 / 600 Other: Number of Unmeasured Voids 1 0 1 Weight 117.594 kg Patient Weight 03/08/24 23:59 Weight 117.594 kg Laboratory Results - last 24 hr 03/07/24 13:45: Hepatitis C Antibody Non reactive 03/08/24 06:03: WBC 17.9 H D, RBC 4.81, Hgb 16.4, Hct 46.8, MCV 97.3 H, MCH 34.1 H, MCHC 35.0, RDW 13.5, Plt Count 421, MPV 11.3 H, Neut % (Auto) 75.6, Lymph % (Auto) 18.5, [place] % (Auto) 4.3, Eos % (Auto) 0.1, Baso % (Auto) 0.3, Neut # (Auto) 13.5 H, Lymph # (Auto) 3.3, [place] # (Auto) 0.8, Eos # (Auto) 0.0, Baso # (Auto) 0.1, Total Counted 100, Neutrophils % (Manual) 80 H, Lymphocytes % (Manual) 18, Monocytes % (Manual) 2, Platelet Estimate Normal, RBC Morphology Normal, PT 16.6 H, INR 1.55 H, Sodium 133 L, Potassium 3.9, Chloride 102, Carbon Dioxide 27, Anion Gap 7.9, BUN 29 H, Creatinine 1.30 H, Estimated Creat Clear 47, Estimated GFR 54 L, Est GFR ( Amer) 66, Glucose 140 H D, Lactate 1.9, Calcium 8.3 L, Magnesium 2.5 H D, Total Bilirubin 0.9, AST 39, ALT 44, Alkaline Phosphatase 93, Total Protein 6.3, Albumin 3.7 D, Globulin 2.6, Albumin/Globulin Ratio 1.4 I & O for Labs for Last 24 Hours: Intake & Output 03/05/24 03/06/24 03/07/24 03/08/24 23:59 23:59 23:59 23:59 Intake Total 1560 / 1560 Output Total 0 / 0 600 / 600 Balance 0 / 0 960 / 960 Weight 117.594 kg 117.594 kg Microbiology Reports for the Last 24 Hours: Microbiology 03/07/24 14:13 Blood Blood Culture - Preliminary NO GROWTH AFTER 24 HOURS 03/07/24 14:09 Blood Blood Culture - Preliminary NO GROWTH AFTER 24 HOURS 03/07/24 Unknown Sputum - Expectorated Sputum Gram Stain - Final Constitutional: Present no acute distress, morbidly obese, chronically ill appearing and cooperative Head: Present atraumatic and normocephalic ENT: Present normal exam Respiratory: Present prolonged expiratory phase, rhonchi and wheezes; Absent crackles Cardiac: Present Reg Rate and Rhythm GI: Present soft and normal bowel sounds; Absent distention or tenderness Extremities: Present normal inspection, full ROM and edema (1+ to knees) Skin: Present intact; Absent erythema Neuro: Present Grossly Intact, alert, awake, oriented x 3 and moves all extremities Comment:: Hard of hearing Assessment and Plan *Assessment and plan (1) Sepsis: Status: Acute Category: Medical Code(s): A41.9 - Sepsis, unspecified organism (2) CHF exacerbation: Status: Acute Category: Medical Code(s): I50.9 - Heart failure, unspecified (3) Acute hypoxemic respiratory failure: Status: Acute Category: Medical Code(s): J96.01 - Acute respiratory failure with hypoxia (4) RSV (respiratory syncytial virus pneumonia): Status: Acute Category: Medical Code(s): J12.1 - Respiratory syncytial virus pneumonia (5) NSTEMI (non-ST elevated myocardial infarction): Status: Acute Category: Medical Code(s): I21.4 - Non-ST elevation (NSTEMI) myocardial infarction (6) Neutropenia: Status: Acute Category: Medical Code(s): D70.9 - Neutropenia, unspecified (7) MIGUEL A (acute kidney injury): Status: Acute Category: Medical Code(s): N17.9 - Acute kidney failure, unspecified (8) Chronic respiratory failure: Problem Comment: On Astral and O2 at night Status: Chronic Qualifiers: Respiratory failure complication: hypoxia Qualified Code(s): J96.11 - Chronic respiratory failure with hypoxia Category: Medical Code(s): J96.10 - Chronic respiratory failure, unspecified whether with hypoxia or hypercapnia (9) ISAAC (obstructive sleep apnea): Problem Comment: Stable Status: Chronic Category: Medical Code(s): G47.33 - Obstructive sleep apnea (adult) (pediatric) (10) Memory loss or impairment: Problem Comment: He was started on Namenda by Dr. Hi, previous PCP. 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 06/2023 brain MRI, B12, folate, TSH: No significant abnormalities. 12/29/2023: Stable Status: Chronic Category: Medical Code(s): R41.3 - Other amnesia (11) Obesity: Status: Acute Qualifiers: Body mass index: BMI 40.0-44.9 Obesity classification: adult class 3 (BMI >= 40) Obesity type: due to excess calories Serious obesity comorbidity presence: with serious comorbidity Qualified Code(s): E66.01 - Morbid (severe) obesity due to excess calories; Z68.41 - Body mass index [BMI] 40.0-44.9, adult Category: Medical Code(s): E66.9 - Obesity, unspecified (12) CKD (chronic kidney disease) stage 3, GFR 30-59 ml/min: Status: Chronic Qualifiers: Chronic kidney disease stage 3 subtype: stage 3a (GFR 45-59) Qualified Code(s): N18.31 - Chronic kidney disease, stage 3a Category: Medical Code(s): N18.30 - Chronic kidney disease, stage 3 unspecified (13) COPD exacerbation: Status: Chronic Category: Medical Code(s): J44.1 - Chronic obstructive pulmonary disease with (acute) exacerbation (14) DVT (deep venous thrombosis): Status: Resolved Category: Medical Code(s): I82.409 - Acute embolism and thrombosis of unspecified deep veins of unspecified lower extremity (15) Aortic valve stenosis: Status: Chronic Qualifiers: Cardiac valve disease etiology: etiology unspecified Qualified Code(s): I35.0 - Nonrheumatic aortic (valve) stenosis Category: Medical Code(s): I35.0 - Nonrheumatic aortic (valve) stenosis (16) History of pulmonary embolism: Status: Chronic Category: Medical Code(s): Z86.711 - Personal history of pulmonary embolism (17) Pulmonary hypertension: Status: Chronic Category: Medical Code(s): I27.20 - Pulmonary hypertension, unspecified Plan 73-year-old male with multiple comorbidities. Presents with worsening shortness of breath over the past 3 to 4 days. Failed outpatient therapy with antibiotics. Workup in the ER concerning for pneumonia, acute on chronic hypoxemic respiratory failure, RSV, CHF exacerbation. Case discussed with ER physician, request admission for further management. I agreed to admit for further treatment including diuresis and antibiotic therapy. Cardiology and pulmonology seeing patient today. Continues to require inpatient management. Showing some improvement with symptomatic treatment. Problems addressed as follows: Acute on chronic hypoxic respiratory failure RSV pneumonia Neutropenia -White count bumped today to 17.9. Suspect secondary to steroid effect. Neutropenia resolved. - Procalcitonin normal at 0.057. -Discontinue cefepime. Transition to Levaquin at the recommendation of pulmonology per discussion. Continue CPAP at night or while asleep. Continue Trelegy 100 inhaler along with DuoNebs every 6 hours. - Continue supplemental oxygen as needed for goal sats greater than 90%. On 2 L on rounds. Wears 3-1/2 at night through his CPAP. Normally on room air at home during the day. No need for steroids. Acute on chronic heart failure with preserved ejection fraction NSTEMI -BNP of 1000 on admission. No chest pain. EKG with no ischemic changes. Likely supply/demand mismatch in the setting of hypoxia and pneumonia. - Cardiology evaluated patient today, discussed case, recommend continuing carvedilol, statin, warfarin. Repeat echo. -Continue carvedilol 3.125 mg twice daily, continue Jardiance 10 mg daily -Continue Bumex 2 mg IV twice daily, received 1 dose in the ER. Continue levothyroxine 50 g daily for hypothyroid Mild cognitive impairment: Continues citalopram 20 mg daily, memantine 10 mg twice daily. MIGUEL A on CKD. BUN 29, creatinine 1.3. Potassium 3.9, magnesium 2.5. Baseline appears to be 1-1.1. Caution with nephrotoxins. Repeat CBC, CMP, magnesium ordered for the morning. 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 Subtherapeutic with INR of 1.55. Continue Lovenox 1 mg/kg subcu twice daily. Continue warfarin 7.5 mg daily. Repeat INR ordered for the morning. Full code Cardiac diet Warfarin, INR pending in the morning. INR 1.5 on admission
[2024-03-09 03:55] VITALS: BP 137/80; PULSE 79; RESP 20; TEMP 36.5; O2SAT 91
[2024-03-09 04:00] VITALS: BMI 40.5
[2024-03-09] MEDS: FLUTICASONE/UMECLIDIN/VILANTER 100/62.5/25MCG INHALER 1 PUFF IH (06:01)
[2024-03-09] MEDS: LEVOTHYROXINE 50MCG (0.05MG) TAB 50 MCG PO (06:42)
[2024-03-09 06:55] LABS: Albumin Level 3.5 g/dl (3.5-5.0); Chloride 102 mmol/L (98-107); Potassium 3.6 mmoL/L (3.5-5.1); Sodium 134 mmol/L (136-145)
[2024-03-09 06:58] LABS: Alanine Aminotransferase 37 U/L (12-78); Albumin/Globulin Ratio 1.3 (1.1-1.8); Alkaline Phosphatase 89 U/L (38-126); Anion Gap 4.6 mEq/L (5-15); Aspartate Amino Transferase 39 U/L (17-59); Blood Urea Nitrogen 34 mg/dl (9-20); Carbon Dioxide 31 mmol/L (22.0-30.0); Creatinine Clearance Estimated 47 mL/min (50-200); Estimated Glomerular Filt Rate 54 ml/min (>60); GFR (African American) 66 ML/MIN (>60); Globulin 2.8 g/dL (1.3-3.2); Total Protein,Serum 6.3 g/dl (6.3-8.2)
[2024-03-09 06:59] LABS: Calcium 8.4 mg/dl (8.4-10.2); Glucose 89 mg/dl (74-100); Magnesium 2.4 mg/dl (1.6-2.3)
[2024-03-09 07:02] LABS: Hematocrit 48.5 % (42.0-52.0); Hemoglobin 16.9 g/dL (14.1-18.0); Red Blood Count 4.88 M/mm3 (4.60-6.20); White Blood Count 17.9 K/mm3 (4.8-10.8)
[2024-03-09 07:03] LABS: Mean Corpuscular HGB Conc 34.8 g/dL (31.8-35.4); Mean Corpuscular Hemoglobin 34.6 pg (27.0-31.2); Mean Corpuscular Volume 99.4 fl (80-94); Mean Platelet Volume 11.5 fl (7.4-10.4); Neutrophils % 53.1 % (37.0-80.0); Platelet Count 417 K/mm3 (142-424); Red Cell Distribution Width 13.9 % (11.5-17.5)
[2024-03-09 07:04] LABS: Basophils # 0.1 K/mm3 (0-0.2); Basophils % 0.6 % (0.1-2.0); Eosinophils # 0.2 K/mm3 (0.0-0.4); Eosinophils % 0.9 % (0.1-12.0); Lymphocytes # 6.2 K/mm3 (0.7-4.5); Lymphocytes % 34.7 % (10-50); Monocytes # 1.7 K/mm3 (0.1-1.0); Monocytes % 9.5 % (1.7-9.3); Neutrophils # 9.5 K/mm3 (1.8-7.8)
[2024-03-09 07:05] LABS: MANUAL DIFFERENTIAL MANUAL DIFFERENTIAL (MANUAL DIFF)
[2024-03-09 07:52] VITALS: BP 138/77; PULSE 72; RESP 20; TEMP 36.6; O2SAT 92
[2024-03-09] MEDS: BUMETANIDE 1MG/4ML VIAL 2 MG IV ×2 (09:01→15:37)
[2024-03-09] MEDS: CITALOPRAM 20MG TABLET 20 MG PO (09:02)
[2024-03-09] MEDS: EMPAGLIFLOZIN 10MG TABLET 10 MG PO (09:02)
[2024-03-09] MEDS: AZELASTINE NASAL SPRAY 30ML BOTTLE NS ×2 (09:02→20:58)
[2024-03-09] MEDS: CARVEDILOL 3.125MG TABLET 3.125 MG PO ×2 (09:02→20:59)
[2024-03-09] MEDS: LEVOFLOXACIN/D5W 750 MG/150 ML 750 MG/150 ML PIGGYBACK 100 MG IV (09:02)
[2024-03-09] MEDS: ENOXAPARIN 120MG/0.8ML SYRINGE 115 MG SUBCUT ×2 (09:02→20:59)
[2024-03-09] MEDS: MEMANTINE 10MG TABLET 10 MG PO ×2 (09:02→20:59)
--- NOTE | 2024-03-09 09:43 | EXP.PULM.PN ---
Subjective *Date: 03/09/24 *Time: 12:35 Interval history: No acute respiratory vents overnight. Patient denies any new respiratory complaints. Pulmonology Exam Inpatient Vital signs and Labs for Last 24 Hours: Temp Pulse Resp BP Pulse Ox O2 Del Method O2 Flow Rate 97.8 F 72 20 138/77 92 L CPAP 2 03/09/24 07:52 03/09/24 07:52 03/09/24 07:52 03/09/24 07:52 03/09/24 07:52 03/09/24 09:00 03/09/24 03:55 Laboratory Results - last 24 hr 03/08/24 06:03: Total Counted 100, Neutrophils % (Manual) 80 H, Lymphocytes % (Manual) 18, Monocytes % (Manual) 2, Platelet Estimate Normal, RBC Morphology Normal 03/09/24 06:04: WBC 17.9 H, RBC 4.88, Hgb 16.9, Hct 48.5, MCV 99.4 H, MCH 34.6 H, MCHC 34.8, RDW 13.9, Plt Count 417, MPV 11.5 H, Neut % (Auto) 53.1, Lymph % (Auto) 34.7, [place] % (Auto) 9.5 H, Eos % (Auto) 0.9, Baso % (Auto) 0.6, Neut # (Auto) 9.5 H, Lymph # (Auto) 6.2 H, [place] # (Auto) 1.7 H, Eos # (Auto) 0.2, Baso # (Auto) 0.1, PT 19.0 H, INR 1.80 H, Sodium 134 L, Potassium 3.6, Chloride 102, Carbon Dioxide 31 H, Anion Gap 4.6 L, BUN 34 H, Creatinine 1.30 H, Estimated Creat Clear 47, Estimated GFR 54 L, Est GFR ( Amer) 66, Glucose 89, Calcium 8.4, Magnesium 2.4 H, Total Bilirubin 1.0, AST 39, ALT 37, Alkaline Phosphatase 89, Total Protein 6.3, Albumin 3.5, Globulin 2.8, Albumin/Globulin Ratio 1.3 Temp Pulse Resp BP Pulse Ox O2 Del Method O2 Flow Rate 97.5 F L 78 17 112/68 95 Nasal Cannula 5 03/08/24 08:00 03/08/24 08:00 03/08/24 08:00 03/08/24 08:00 03/08/24 08:00 03/08/24 08:00 03/08/24 08:00 Laboratory Results - last 24 hr 03/07/24 13:35: Urine Color Yellow, Urine Appearance Clear, Urine pH 6.0, Ur Specific [place] 1.010, Urine Protein Trace, Urine Glucose (UA) 3+, Urine Ketones Negative, Urine Blood Negative, Urine Nitrate Negative, Urine Bilirubin Negative, Urine Urobilinogen 0.2, Ur Leukocyte Esterase 1+ A, Urine RBC None, Urine WBC 10-20, Ur Squamous Epith Cells Occasional, Urine Bacteria Trace 03/07/24 13:44: WBC 7.7, RBC 5.25, Hgb 18.0, Hct 50.6, MCV 96.4 H, MCH 34.2 H, MCHC 35.5 H, RDW 15.3, Plt Count 432 H, MPV 10.1, Neut % (Auto) 1.3 L, Lymph % (Auto) 98.4 H, [place] % (Auto) 0.2 L, Eos % (Auto) 0.1, Baso % (Auto) 6.4 H, Neut # (Auto) 0.1 L*, Lymph # (Auto) 7.6 H, [place] # (Auto) 0.0 L, Eos # (Auto) 0.0, Baso # (Auto) 0.5 H, Total Counted 100, Neutrophils % (Manual) 55, Lymphocytes % (Manual) 33, Monocytes % (Manual) 12 H, Platelet Estimate Slight increase, RBC Morphology Normal, Anisocytosis 1+, PT 16.1 H, INR 1.50 H, D-Dimer 0.96 H, Sodium 142, Potassium 3.5, Chloride 105, Carbon Dioxide 27, Anion Gap 13.5, BUN 24 H, Creatinine 1.30 H, Estimated Creat Clear 87, Estimated GFR 54 L, Est GFR ( Amer) 66, Glucose 91, Calcium 9.1, Magnesium 2.1, Total Bilirubin 0.9, AST 47, ALT 56, Alkaline Phosphatase 102, Troponin I 0.03, C-Reactive Protein 2.8, NT-Pro-B Natriuret Pep 1070 H, Total Protein 7.4, Albumin 4.4, Globulin 3.0, Albumin/Globulin Ratio 1.5, Procalcitonin 0.057 03/07/24 13:45: Hepatitis C Antibody Non reactive, HIV Ag/Ab Combo Qual Negative 03/07/24 13:56: VBG pH 7.34, VBG pCO2 46.3, VBG pO2 46.9 H, VBG HCO3 24.3, VBG Total CO2 25.7, VBG O2 Saturation 82.9 H, VBG Base Excess -1.5, VBG Lactic Acid 4.5 H 03/07/24 13:59: Chlamy pneumoniae PCR Not detected, Adenovirus (PCR) Not detected, B. pertussis DNA (PCR) Not detected, Coronavirus OC43 (PCR) Not detected, Coronavirus HKU1 (PCR) Not detected, Coronavirus 229E (PCR) Not detected, SARS-CoV-2 (PCR) Not detected, Coronavirus NL63 (PCR) Not detected, Human Metapneumovir PCR Not detected, Influenza A (H1) PCR Not detected, Influ A (H1N1/09) PCR Not detected, Influenza A (H3) PCR Not detected, Influenza Type A (PCR) Not detected, Influenza Type B (PCR) Not detected, M. pneumoniae (PCR) Not detected, Parainfluenza 1 (PCR) Not detected, Parainfluenza 2 (PCR) Not detected, Parainfluenza 3 (PCR) Not detected, Parainfluenza 4 (PCR) Not detected, RSV (PCR) Detected A, Entero/Rhino (PCR) Not detected 03/07/24 17:48: Troponin I 0.20 H 03/07/24 18:49: Lactate 2.1 03/07/24 20:00: Troponin I 0.19 H 03/07/24 21:14: Lactate 4.2 H 03/08/24 06:03: WBC 17.9 H D, RBC 4.81, Hgb 16.4, Hct 46.8, MCV 97.3 H, MCH 34.1 H, MCHC 35.0, RDW 13.5, Plt Count 421, MPV 11.3 H, Neut % (Auto) 75.6, Lymph % (Auto) 18.5, [place] % (Auto) 4.3, Eos % (Auto) 0.1, Baso % (Auto) 0.3, Neut # (Auto) 13.5 H, Lymph # (Auto) 3.3, [place] # (Auto) 0.8, Eos # (Auto) 0.0, Baso # (Auto) 0.1, Total Counted 100, Neutrophils % (Manual) 80 H, Lymphocytes % (Manual) 18, Monocytes % (Manual) 2, Platelet Estimate Normal, RBC Morphology Normal, PT 16.6 H, INR 1.55 H, Sodium 133 L, Potassium 3.9, Chloride 102, Carbon Dioxide 27, Anion Gap 7.9, BUN 29 H, Creatinine 1.30 H, Estimated Creat Clear 47, Estimated GFR 54 L, Est GFR ( Amer) 66, Glucose 140 H D, Lactate 1.9, Calcium 8.3 L, Magnesium 2.5 H D, Total Bilirubin 0.9, AST 39, ALT 44, Alkaline Phosphatase 93, Total Protein 6.3, Albumin 3.7 D, Globulin 2.6, Albumin/Globulin Ratio 1.4 I & O for Labs for Last 24 Hours: Intake & Output 03/06/24 03/07/24 03/08/24 03/09/24 23:59 23:59 23:59 23:59 Intake Total 1560 / 1560 150 / 150 Output Total 0 / 0 600 / 1240 1100 / 1100 Balance 0 / 0 960 / 320 -950 / -950 Weight 259 lb 4 oz 259 lb 4.006 oz 258 lb 4 oz Intake & Output 03/05/24 03/06/24 03/07/24 03/08/24 23:59 23:59 23:59 23:59 Intake Total 720 / 720 Output Total 0 / 0 0 / 0 Balance 0 / 0 720 / 720 Weight 259 lb 4 oz 259 lb 4.006 oz Microbiology Reports for the Last 24 Hours: Microbiology 03/07/24 14:13 Blood Blood Culture - Preliminary NO GROWTH AFTER 24 HOURS 03/07/24 14:09 Blood Blood Culture - Preliminary NO GROWTH AFTER 24 HOURS Microbiology 03/07/24 Unknown Sputum - Expectorated Sputum Gram Stain - Final Constitutional: Present moderate distress Head: Present normocephalic and atraumatic ENT: Present normal exam, normal oropharynx and mucous membranes moist Neck: Present normal inspection and full ROM Respiratory: Present respiratory distress, rhonchi, crackles and able to speak in complete sentences; Absent wheezes Cardiac: Present S1/S2, Tachycardia and radial pulses present GI: Present soft and distention; Absent tenderness or guarding Skin: Present intact; Absent cyanosis or jaundice Neuro: Present alert, awake and oriented x 3 Extremities: Present normal inspection; Absent clubbing or cyanosis Psychiatric: Present normal affect and cooperative Assessment and Plan *Assessment and plan (1) RSV (respiratory syncytial virus pneumonia): Status: Acute Category: Medical Code(s): J12.1 - Respiratory syncytial virus pneumonia (2) Acute and chronic respiratory failure with hypoxia: Status: Acute Category: Medical Code(s): J96.21 - Acute and chronic respiratory failure with hypoxia Plan Mr. Carrillo is a 73-year-old male no significant smoking history exertional dyspnea and restrictive lung disease lung volumes with imaging did not show any obvious interstitial lung disease and negative autoimmune workup, COPD, exertional hypoxia, moderate aortic stenosis possible diastolic dysfunction, most recent echo from September 2011 with normal RV size and function, prior history of pulmonary embolism currently on warfarin presented to the ER with worsening respiratory distress and pulmonary was called for further evaluation and management. Upon further questioning patient admits worsening respiratory distress and hypoxic episodes prior to admission. Denies any known sick contacts. CT chest upon admission no dense consolidative/airspace changes noted. Lower lobe predominant greater than right groundglass opacities noted. Respiratory viral PCR positive for RSV. Blood gas upon admission did not show any evidence of hypercarbic respiratory failure. Neutrophilic predominant leukocytosis. Interval update: Stable leukocytosis. Antibiotics weaned to levofloxacin. Improving respiratory distress and wheezing. Plan: -Continue oxygen supplementation to maintain O2 saturation goal of 90% and above. -Continue CPAP therapy at night for his sleep apnea -Continue levofloxacin to complete a total of 5-day course -Trelegy 100 inhaler along with DuoNebs 4 times daily as needed -No need for steroids from pulmonary standpoint # Thank you for involving pulmonary in this patient care. Will continue to follow.
[2024-03-09] MEDS: WARFARIN 5MG TABLET 7.5 MG PO (10:37)
[2024-03-09 11:50] VITALS: BP 133/77; PULSE 78; RESP 22; TEMP 36.6; O2SAT 93
[2024-03-09 12:01] LABS: Eosinophils % 1 % (0-3); Lymphocytes % 24 % (10-50); Monocytes % 8 % (2-9); Neutrophils % 67 % (42-76); Platelet Estimate Normal; RBC Morphology Normal; Total Cells Counted 100
--- NOTE | 2024-03-09 12:49 | CA_ITS ---
APPROVED REPORT EXAM: Comprehensive 2D, Doppler, and color-flow Echocardiogram [employer]: Eva Escalona RT(R) Ht: 5 ft 7 in Wt: 262lbs BSA: 2.27 BP: 114/68 mmHg Indications: mod , Pulmonary Hypertension, COPD, Shortness of Breath, Fatigue, CAD, Hypertension/HDD, SMOKER, TDE D/T BODY HABITUS AND SOB 2D Dimensions EF AP4 58.40 % GL Strain -14.0 % M-Mode Dimensions RVDd 3.18 cm (0.9-2.6) LVDd 6.20 cm (3.5-5.7) LVDs 4.61 cm (3.5-5.7) IVSd 1.23 cm (0.6-1.1) PWd 1.23 cm (0.6-1.1) EF (Teich) 49.60% FS 25.60% EDV (Teich) 194.00 mL ESV (Teich) 97.80 mL LV Diastology E Decel Time 150 (160-240 msec) E/A Ratio 0.72 Aortic Valve GUIDO Index 0.48 cm2/m2 AoV Peak Srinivas. 300.0 (50-130 cm/s) AO Peak GR. 36.20 mmHg AO Mean GR. 17.80 (<5 mmHg) AO VTI 47.1 (18-25 cm) GUIDO (VTI) 1.11 (2.5-4.5 cm2) Mitral Valve MV E Max Srinivas. 64.0 (40-130 cm/s) MV A Velocity 90.0 (40-130 cm/s) E/A Ratio 0.72 MV PHT 44.0 ms Left Ventricle The left ventricle is normal size. The left ventricular systolic function is normal. The left ventricular ejection fraction is within the normal range. There is increased LV wall thickness. Diastolic function is indeterminate. There is normal LV segmental wall motion. LVEF is 60%. Right Ventricle The right ventricle is not very well-visualized, but grossly appears normal in size and function. Atria The left atrium size is normal. The right atrium size is normal. There is no Doppler evidence of interatrial shunt. Aortic Valve The aortic valve is moderately thickened. Moderate aortic stenosis is present. GUIDO by continuity equation is 1.1 cm???. Peak velocity is 3.2 m/s. Mean AV gradient 21 mmHg. Max AV gradient 42 mmHg. Trace aortic regurgitation. Mitral Valve The mitral valve leaflets are mildly thickened. No evidence of mitral valve stenosis. Trace mitral regurgitation. Tricuspid Valve The tricuspid valve leaflets are thin and pliable. Mild tricuspid regurgitation. RVSP is 20-25 mmHg. Pulmonic Valve The pulmonary valve is grossly normal in structure. Trace pulmonic regurgitation. Great Vessels The aortic root is normal in size. The ascending aorta is not well-visualized. IVC is normal in size and collapses >50% with inspiration. Pericardium There is no pericardial effusion. Other Information Study Quality: Fair Conclusion Normal biventricular systolic function. Moderate (GUIDO by continuity equation is 1.1 cm???. Peak velocity is 3.2 m/s. Mean AV gradient 21 mmHg. Max AV gradient 42 mmHg). Mild TR. Electronically signed by : Yara Delatorre MD 03/09/2024 23:21:39
--- NOTE | 2024-03-09 15:11 | PC.NURSE ---
Pt. is aox 4, very [place], up ad paula, cpap most of the day with a break to go to the restroom, pt. aware that he should not be wearing it all day and was given some teaching, 18g L AC SL, followed by Pulmonary and Cardiology.
[2024-03-09 15:45] VITALS: BP 119/73; PULSE 88; RESP 22; TEMP 36.6; O2SAT 90
[2024-03-09 20:00] VITALS: BP 126/82; PULSE 84; RESP 19; TEMP 37.3; O2SAT 93
--- NOTE | 2024-03-09 21:41 | P.PN_ITS ---
Subjective *Date: 03/09/24 *Time: 21:41 Exam Data for Last 24 hours Vital signs and Labs for Last 24 Hours: Temp Pulse Resp BP Pulse Ox O2 Del Method O2 Flow Rate 99.2 F 84 19 126/82 93 L CPAP 2 03/09/24 20:00 03/09/24 20:00 03/09/24 20:00 03/09/24 20:00 03/09/24 20:00 03/09/24 21:00 03/09/24 11:50 Laboratory Results - last 24 hr 03/09/24 06:04: WBC 17.9 H, RBC 4.88, Hgb 16.9, Hct 48.5, MCV 99.4 H, MCH 34.6 H , MCHC 34.8, RDW 13.9, Plt Count 417, MPV 11.5 H, Neut % (Auto) 53.1, Lymph % (Auto) 34.7, [place] % (Auto) 9.5 H, Eos % (Auto) 0.9, Baso % (Auto) 0.6, Neut # (Auto) 9.5 H, Lymph # (Auto) 6.2 H, [place] # (Auto) 1.7 H, Eos # (Auto) 0.2, Baso # (Auto) 0.1, Total Counted 100, Neutrophils % (Manual) 67, Lymphocytes % (Manual) 24, Monocytes % (Manual) 8, Eosinophils % (Manual) 1, Platelet Estimate Normal, RBC Morphology Normal, PT 19.0 H, INR 1.80 H, Sodium 134 L, Potassium 3.6, Chloride 102, Carbon Dioxide 31 H, Anion Gap 4.6 L, BUN 34 H, Creatinine 1.30 H, Estimated Creat Clear 47, Estimated GFR 54 L, Est GFR ( Amer) 66, Glucose 89, Calcium 8.4, Magnesium 2.4 H, Total Bilirubin 1.0, AST 39, ALT 37, Alkaline Phosphatase 89, Total Protein 6.3, Albumin 3.5, Globulin 2.8, Albumin/Globulin Ratio 1.3 I & O for Last 24 hours: Intake & Output 03/06/24 03/07/24 03/08/24 03/09/24 23:59 23:59 23:59 23:59 Intake Total 1560 / 1560 1350 / 1350 Output Total 0 / 0 600 / 1240 3575 / 3575 Balance 0 / 0 960 / 320 -2225 / -2225 Weight 117.594 kg 117.594 kg 117.14 kg Microbiology Reports for the Last 24 Hours: Microbiology 03/07/24 14:13 Blood Blood Culture - Preliminary NO GROWTH AFTER 48 HOURS 03/07/24 14:09 Blood Blood Culture - Preliminary NO GROWTH AFTER 48 HOURS 03/07/24 13:35 Urine,Clean Catch Urine Culture - Final Multiple organisms, suggests contamination. 03/07/24 Unknown Sputum - Expectorated Sputum Gram Stain - Final 03/07/24 Unknown Sputum - Expectorated Sputum Sputum Culture - Preliminary Constitutional Constitutional: no acute distress and obese *Routine HEENT Exam Head: Present normocephalic Eye: Present EOMI and PERRL ENT: Present mucous membranes moist *Routine Neck Exam Neck: Present supple; Absent lymphadenopathy *Routine Respiratory Exam Respiratory: Present CTA bilaterally *Routine Cardiovascular Exam Cardiovascular: Present RRR *Routine Abdominal Exam Abdominal: Present soft and normoactive bowel sounds; Absent tenderness *Routine Extremities Exam Extremities: Absent cyanosis, clubbing or edema *Routine Skin Exam Skin: Present warm; Absent rash *Routine Neurological Exam Neurological: Present alert and oriented X3 Assessment and Plan *Assessment and plan (1) Sepsis: Status: Acute Category: Medical Code(s): A41.9 - Sepsis, unspecified organism (2) CHF exacerbation: Status: Acute Category: Medical Code(s): I50.9 - Heart failure, unspecified (3) Acute hypoxemic respiratory failure: Status: Acute Category: Medical Code(s): J96.01 - Acute respiratory failure with hypoxia (4) RSV (respiratory syncytial virus pneumonia): Status: Acute Category: Medical Code(s): J12.1 - Respiratory syncytial virus pneumonia (5) NSTEMI (non-ST elevated myocardial infarction): Status: Acute Category: Medical Code(s): I21.4 - Non-ST elevation (NSTEMI) myocardial infarction (6) Neutropenia: Status: Acute Category: Medical Code(s): D70.9 - Neutropenia, unspecified (7) MIGUEL A (acute kidney injury): Status: Acute Category: Medical Code(s): N17.9 - Acute kidney failure, unspecified (8) Chronic respiratory failure: Problem Comment: On Astral and O2 at night Status: Chronic Qualifiers: Respiratory failure complication: hypoxia Qualified Code(s): J96.11 - Chronic respiratory failure with hypoxia Category: Medical Code(s): J96.10 - Chronic respiratory failure, unspecified whether with hypoxia or hypercapnia (9) ISAAC (obstructive sleep apnea): Problem Comment: Stable Status: Chronic Category: Medical Code(s): G47.33 - Obstructive sleep apnea (adult) (pediatric) (10) Memory loss or impairment: Problem Comment: He was started on Namenda by Dr. Hi, previous PCP. 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 06/2023 brain MRI, B12, folate, TSH: No significant abnormalities. 12/29/2023: Stable Status: Chronic Category: Medical Code(s): R41.3 - Other amnesia (11) Obesity: Status: Acute Qualifiers: Obesity type: due to excess calories Obesity classification: adult class 3 (BMI >= 40) Serious obesity comorbidity presence: with serious comorbidity Body mass index: BMI 40.0-44.9 Qualified Code(s): E66.01 - Morbid (severe) obesity due to excess calories; Z68.41 - Body mass index [BMI] 40.0- 44.9, adult Category: Medical Code(s): E66.9 - Obesity, unspecified (12) CKD (chronic kidney disease) stage 3, GFR 30-59 ml/min: Status: Chronic Qualifiers: Chronic kidney disease stage 3 subtype: stage 3a (GFR 45-59) Qualified Code(s): N18.31 - Chronic kidney disease, stage 3a Category: Medical Code(s): N18.30 - Chronic kidney disease, stage 3 unspecified (13) COPD exacerbation: Status: Chronic Category: Medical Code(s): J44.1 - Chronic obstructive pulmonary disease with (acute) exacerbation (14) DVT (deep venous thrombosis): Status: Resolved Category: Medical Code(s): I82.409 - Acute embolism and thrombosis of unspecified deep veins of unspecified lower extremity (15) Aortic valve stenosis: Status: Chronic Qualifiers: Cardiac valve disease etiology: etiology unspecified Qualified Code(s): I35.0 - Nonrheumatic aortic (valve) stenosis Category: Medical Code(s): I35.0 - Nonrheumatic aortic (valve) stenosis (16) History of pulmonary embolism: Status: Chronic Category: Medical Code(s): Z86.711 - Personal history of pulmonary embolism (17) Pulmonary hypertension: Status: Chronic Category: Medical Code(s): I27.20 - Pulmonary hypertension, unspecified Plan 73-year-old male with multiple comorbidities. Presents with worsening shortness of breath over the past 3 to 4 days. Failed outpatient therapy with antibiotics. Workup in the ER concerning for pneumonia, acute on chronic hypoxemic respiratory failure, RSV, CHF exacerbation. Case discussed with ER physician, request admission for further management. I agreed to admit for further treatment including diuresis and antibiotic therapy. Cardiology and pulmonology seeing patient today. Continues to require inpatient management. Showing some improvement with symptomatic treatment. Problems addressed as follows: Acute on chronic hypoxic respiratory failure Left lower lobe pneumonia RSV Neutropenia - White count remained at 17.9. Suspect secondary to steroid effect. Neutropenia resolved. - Procalcitonin normal at 0.057. - CTA does show LLL pneumonia. - Continue Levaquin at the recommendation of pulmonology per discussion. Continue CPAP at night or while asleep. Continue Trelegy 100 inhaler along with DuoNebs every 6 hours. - Continue supplemental oxygen as needed for goal sats greater than 90%. On 2 L on rounds. Wears 3-1/2 at night through his CPAP. Normally on room air at home during the day. No need for steroids. Acute on chronic heart failure with preserved ejection fraction NSTEMI type 2 -BNP of 1000 on admission. No chest pain. EKG with no ischemic changes. Likely supply/demand mismatch in the setting of hypoxia and pneumonia. - Cardiology evaluated patient today, discussed case, recommend continuing carvedilol, statin, warfarin. Repeat echo. - Continue carvedilol 3.125 mg twice daily, continue Jardiance 10 mg daily - Continue Bumex 2 mg IV twice daily, Renal function stable Cr 1.3. - Follow-up ECHO Continue levothyroxine 50 g daily for hypothyroid Mild cognitive impairment: Continues citalopram 20 mg daily, memantine 10 mg twice daily. MIGUEL A on CKD. BUN 29, creatinine 1.3. Potassium 3.9, magnesium 2.5. Baseline appears to be 1-1.1. Caution with nephrotoxins. Repeat CBC, CMP, magnesium ordered for the morning. 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 Subtherapeutic with INR of 1.8. Continue Lovenox 1 mg/kg subcu twice daily. Continue warfarin 7.5 mg daily. Repeat INR ordered for the morning. Full code Cardiac diet Warfarin, INR pending in the morning. INR 1.5 on admission
[2024-03-10] VITALS (7 sets, daily range): BP systolic 111–142; BP diastolic 57–78; PULSE 79–114; RESP 19–22; TEMP 36.5–37.3; O2SAT 90–94; BMI 40.3
[2024-03-10] MEDS: FLUTICASONE/UMECLIDIN/VILANTER 100/62.5/25MCG INHALER 1 PUFF IH (05:53)
[2024-03-10] MEDS: LEVOTHYROXINE 50MCG (0.05MG) TAB 50 MCG PO (06:52)
[2024-03-10 07:24] LABS: Albumin Level 3.7 g/dl (3.5-5.0); Chloride 100 mmol/L (98-107); Potassium 3.1 mmoL/L (3.5-5.1); Sodium 134 mmol/L (136-145)
[2024-03-10 07:26] LABS: Blood Urea Nitrogen 27 mg/dl (9-20); Creatinine Clearance Estimated 47 mL/min (50-200); Estimated Glomerular Filt Rate 54 ml/min (>60); GFR (African American) 66 ML/MIN (>60)
[2024-03-10 07:27] LABS: Alanine Aminotransferase 36 U/L (12-78); Albumin/Globulin Ratio 1.3 (1.1-1.8); Alkaline Phosphatase 95 U/L (38-126); Anion Gap 4.1 mEq/L (5-15); Aspartate Amino Transferase 43 U/L (17-59); Bilirubin,Total 1.3 mg/dl (0.2-1.3); Calcium 8.6 mg/dl (8.4-10.2); Carbon Dioxide 33 mmol/L (22.0-30.0); Globulin 2.8 g/dL (1.3-3.2); Glucose 92 mg/dl (74-100); Total Protein,Serum 6.5 g/dl (6.3-8.2)
[2024-03-10 07:39] LABS: INR 1.82 (0.9-1.1); Prothrombin Time 19.2 seconds (10.1-12.5)
[2024-03-10 08:00] LABS: Hemoglobin 17.5 g/dL (14.1-18.0); Red Blood Count 5.06 M/mm3 (4.60-6.20)
[2024-03-10 08:01] LABS: Basophils # 0.2 K/mm3 (0-0.2); Basophils % 1.1 % (0.1-2.0); Eosinophils # 0.3 K/mm3 (0.0-0.4); Eosinophils % 1.7 % (0.1-12.0); Hematocrit 49.7 % (42.0-52.0); Lymphocytes # 5.6 K/mm3 (0.7-4.5); Lymphocytes % 34.9 % (10-50); Magnesium 2.3 mg/dl (1.6-2.3); Mean Corpuscular HGB Conc 35.2 g/dL (31.8-35.4); Mean Corpuscular Hemoglobin 34.6 pg (27.0-31.2); Mean Corpuscular Volume 98.2 fl (80-94); Mean Platelet Volume 11.5 fl (7.4-10.4); Monocytes # 1.5 K/mm3 (0.1-1.0); Monocytes % 9.1 % (1.7-9.3); Neutrophils # 8.3 K/mm3 (1.8-7.8); Neutrophils % 51.6 % (37.0-80.0); Platelet Count 399 K/mm3 (142-424); Red Cell Distribution Width 13.9 % (11.5-17.5)
[2024-03-10 08:02] LABS: MANUAL DIFFERENTIAL MANUAL DIFFERENTIAL (MANUAL DIFF)
[2024-03-10] MEDS: MEMANTINE 10MG TABLET 10 MG PO ×2 (09:04→20:12)
[2024-03-10] MEDS: CARVEDILOL 3.125MG TABLET 3.125 MG PO ×2 (09:04→20:12)
[2024-03-10] MEDS: CITALOPRAM 20MG TABLET 20 MG PO (09:04)
[2024-03-10] MEDS: EMPAGLIFLOZIN 10MG TABLET 10 MG PO (09:05)
[2024-03-10] MEDS: BUMETANIDE 1MG/4ML VIAL 2 MG IV ×2 (09:06→17:45)
[2024-03-10] MEDS: ENOXAPARIN 120MG/0.8ML SYRINGE 115 MG SUBCUT ×2 (09:06→20:12)
--- NOTE | 2024-03-10 09:52 | P.PN_ITS ---
Subjective *Date: 03/10/24 *Time: 12:05 Interval history: No acute respiratory vents overnight. Patient denies any new complaints. Pulmonology Exam Inpatient Vital signs and Labs for Last 24 Hours: Temp Pulse Resp BP Pulse Ox O2 Del Method O2 Flow Rate 98.3 F 114 H 22 142/74 H 90 L Room Air 2 03/10/24 08:00 03/10/24 08:00 03/10/24 08:00 03/10/24 08:00 03/10/24 08:00 03/10/24 08:00 03/10/24 00:00 Laboratory Results - last 24 hr 03/09/24 06:04: Total Counted 100, Neutrophils % (Manual) 67, Lymphocytes % (Manual) 24, Monocytes % (Manual) 8, Eosinophils % (Manual) 1, Platelet Estimate Normal, RBC Morphology Normal 03/10/24 06:04: WBC 16.0 H, RBC 5.06, Hgb 17.5, Hct 49.7, MCV 98.2 H, MCH 34.6 H , MCHC 35.2, RDW 13.9, Plt Count 399, MPV 11.5 H, Neut % (Auto) 51.6, Lymph % (Auto) 34.9, [place] % (Auto) 9.1, Eos % (Auto) 1.7, Baso % (Auto) 1.1, Neut # (Auto) 8.3 H, Lymph # (Auto) 5.6 H, [place] # (Auto) 1.5 H, Eos # (Auto) 0.3, Baso # (Auto) 0.2, PT 19.2 H, INR 1.82 H, Sodium 134 L, Potassium 3.1 L, Chloride 100, Carbon Dioxide 33 H, Anion Gap 4.1 L, BUN 27 H, Creatinine 1.30 H, Estimated Creat Clear 47, Estimated GFR 54 L, Est GFR ( Amer) 66, Glucose 92, Calcium 8.6, Magnesium 2.3, Total Bilirubin 1.3, AST 43, ALT 36, Alkaline Phosphatase 95, Total Protein 6.5, Albumin 3.7, Globulin 2.8, Albumin/Globulin Ratio 1.3 Temp Pulse Resp BP Pulse Ox O2 Del Method O2 Flow Rate 97.5 F L 78 17 112/68 95 Nasal Cannula 5 03/08/24 08:00 03/08/24 08:00 03/08/24 08:00 03/08/24 08:00 03/08/24 08:00 03/08/24 08:00 03/08/24 08:00 Laboratory Results - last 24 hr 03/07/24 13:35: Urine Color Yellow, Urine Appearance Clear, Urine pH 6.0, Ur Specific [place] 1.010, Urine Protein Trace, Urine Glucose (UA) 3+, Urine Ketones Negative, Urine Blood Negative, Urine Nitrate Negative, Urine Bilirubin Negative, Urine Urobilinogen 0.2, Ur Leukocyte Esterase 1+ A, Urine RBC None, Urine WBC 10-20, Ur Squamous Epith Cells Occasional, Urine Bacteria Trace 03/07/24 13:44: WBC 7.7, RBC 5.25, Hgb 18.0, Hct 50.6, MCV 96.4 H, MCH 34.2 H, MCHC 35.5 H, RDW 15.3, Plt Count 432 H, MPV 10.1, Neut % (Auto) 1.3 L, Lymph % (Auto) 98.4 H, [place] % (Auto) 0.2 L, Eos % (Auto) 0.1, Baso % (Auto) 6.4 H, Neut # (Auto) 0.1 L*, Lymph # (Auto) 7.6 H, [place] # (Auto) 0.0 L, Eos # (Auto) 0.0, Baso # (Auto) 0.5 H, Total Counted 100, Neutrophils % (Manual) 55, Lymphocytes % (Manual) 33, Monocytes % (Manual) 12 H, Platelet Estimate Slight increase, RBC Morphology Normal, Anisocytosis 1+, PT 16.1 H, INR 1.50 H, D-Dimer 0.96 H, Sodium 142, Potassium 3.5, Chloride 105, Carbon Dioxide 27, Anion Gap 13.5, BUN 24 H, Creatinine 1.30 H, Estimated Creat Clear 87, Estimated GFR 54 L, Est GFR ( Amer) 66, Glucose 91, Calcium 9.1, Magnesium 2.1, Total Bilirubin 0.9, AST 47, ALT 56, Alkaline Phosphatase 102, Troponin I 0.03, C-Reactive Protein 2.8, NT-Pro-B Natriuret Pep 1070 H, Total Protein 7.4, Albumin 4.4, Globulin 3.0, Albumin/Globulin Ratio 1.5, Procalcitonin 0.057 03/07/24 13:45: Hepatitis C Antibody Non reactive, HIV Ag/Ab Combo Qual Negative 03/07/24 13:56: VBG pH 7.34, VBG pCO2 46.3, VBG pO2 46.9 H, VBG HCO3 24.3, VBG Total CO2 25.7, VBG O2 Saturation 82.9 H, VBG Base Excess -1.5, VBG Lactic Acid 4.5 H 03/07/24 13:59: Chlamy pneumoniae PCR Not detected, Adenovirus (PCR) Not detected, B. pertussis DNA (PCR) Not detected, Coronavirus OC43 (PCR) Not detected, Coronavirus HKU1 (PCR) Not detected, Coronavirus 229E (PCR) Not detected, SARS-CoV-2 (PCR) Not detected, Coronavirus NL63 (PCR) Not detected, Human Metapneumovir PCR Not detected, Influenza A (H1) PCR Not detected, Influ A (H1N1/09) PCR Not detected, Influenza A (H3) PCR Not detected, Influenza Type A (PCR) Not detected, Influenza Type B (PCR) Not detected, M. pneumoniae (PCR) Not detected, Parainfluenza 1 (PCR) Not detected, Parainfluenza 2 (PCR) Not dete cted, Parainfluenza 3 (PCR) Not detected, Parainfluenza 4 (PCR) Not detected, RSV (PCR) Detected A, Entero/Rhino (PCR) Not detected 03/07/24 17:48: Troponin I 0.20 H 03/07/24 18:49: Lactate 2.1 03/07/24 20:00: Troponin I 0.19 H 03/07/24 21:14: Lactate 4.2 H 03/08/24 06:03: WBC 17.9 H D, RBC 4.81, Hgb 16.4, Hct 46.8, MCV 97.3 H, MCH 34.1 H, MCHC 35.0, RDW 13.5, Plt Count 421, MPV 11.3 H, Neut % (Auto) 75.6, Lymph % (Auto) 18.5, [place] % (Auto) 4.3, Eos % (Auto) 0.1, Baso % (Auto) 0.3, Neut # (Auto) 13.5 H, Lymph # (Auto) 3.3, [place] # (Auto) 0.8, Eos # (Auto) 0.0, Baso # (Auto) 0.1, Total Counted 100, Neutrophils % (Manual) 80 H, Lymphocytes % (Manual) 18, Monocytes % (Manual) 2, Platelet Estimate Normal, RBC Morphology Normal, PT 16.6 H, INR 1.55 H, Sodium 133 L, Potassium 3.9, Chloride 102, Carbon Dioxide 27, Anion Gap 7.9, BUN 29 H, Creatinine 1.30 H, Estimated Creat Clear 47, Estimated GFR 54 L, Est GFR ( Amer) 66, Glucose 140 H D, Lactate 1.9, Calcium 8.3 L, Magnesium 2.5 H D, Total Bilirubin 0.9, AST 39, ALT 44, Alkaline Phosphatase 93, Total Protein 6.3, Albumin 3.7 D, Globulin 2.6, Albumin/Globulin Ratio 1.4 I & O for Labs for Last 24 Hours: Intake & Output 03/07/24 03/08/24 03/09/24 03/10/24 23:59 23:59 23:59 23:59 Intake Total 1560 / 1560 1350 / 1590 600 / 600 Output Total 0 / 0 600 / 1240 3575 / 3575 600 / 600 Balance 0 / 0 960 / 320 -2225 / -1985 0 / 0 Weight 259 lb 4 oz 259 lb 4.006 oz 258 lb 4 oz 257 lb 1.6 oz Intake & Output 03/05/24 03/06/24 03/07/24 03/08/24 23:59 23:59 23:59 23:59 Intake Total 720 / 720 Output Total 0 / 0 0 / 0 Balance 0 / 0 720 / 720 Weight 259 lb 4 oz 259 lb 4.006 oz Microbiology Reports for the Last 24 Hours: Microbiology 03/07/24 14:13 Blood Blood Culture - Preliminary NO GROWTH AFTER 48 HOURS 03/07/24 14:09 Blood Blood Culture - Preliminary NO GROWTH AFTER 48 HOURS 03/07/24 13:35 Urine,Clean Catch Urine Culture - Final Multiple organisms, suggests contamination. 03/07/24 Unknown Sputum - Expectorated Sputum Gram Stain - Final 03/07/24 Unknown Sputum - Expectorated Sputum Sputum Culture - Preliminary Microbiology 03/07/24 Unknown Sputum - Expectorated Sputum Gram Stain - Final Constitutional: Present moderate distress Head: Present normocephalic and atraumatic ENT: Present normal exam, normal oropharynx and mucous membranes moist Neck: Present normal inspection and full ROM Respiratory: Present respiratory distress, rhonchi, crackles and able to speak in complete sentences; Absent wheezes Cardiac: Present S1/S2, Tachycardia and radial pulses present GI: Present soft and distention; Absent tenderness or guarding Skin: Present intact; Absent cyanosis or jaundice Neuro: Present alert, awake and oriented x 3 Extremities: Present normal inspection; Absent clubbing or cyanosis Psychiatric: Present normal affect and cooperative Assessment and Plan *Assessment and plan (1) RSV (respiratory syncytial virus pneumonia): Status: Acute Category: Medical Code(s): J12.1 - Respiratory syncytial virus pneumonia (2) Acute and chronic respiratory failure with hypoxia: Status: Acute Category: Medical Code(s): J96.21 - Acute and chronic respiratory failure with hypoxia Plan Mr. Carrillo is a 73-year-old male no significant smoking history exertional dyspnea and restrictive lung disease lung volumes with imaging did not show any obvious interstitial lung disease and negative autoimmune workup, COPD, exertional hypoxia, moderate aortic stenosis possible diastolic dysfunction, most recent echo from September 2011 with normal RV size and function, prior history of pulmonary embolism currently on warfarin presented to the ER with worsening respiratory distress and pulmonary was called for further evaluation and management. Upon further questioning patient admits worsening respiratory distress and hypoxic episodes prior to admission. Denies any known sick contacts. CT chest upon admission no dense consolidative/airspace changes noted. Lower lobe predominant greater than right groundglass opacities noted. Respiratory viral PCR positive for RSV. Blood gas upon admission did not show any evidence of hypercarbic respiratory failure. Neutrophilic predominant leukocytosis. Interval update: Stable leukocytosis. Continue to receive levofloxacin. Improving oxygen requirements. Echocardiogram normal biventricular systolic function. Plan: -Follow with chest x-ray -Continue oxygen supplementation to maintain O2 saturation goal of 90% and above. -Continue CPAP therapy at night for his sleep apnea -Continue levofloxacin to complete a total of 5-day course -Trelegy 100 inhaler along with DuoNebs 4 times daily as needed -No need for steroids from pulmonary standpoint # Thank you for involving pulmonary in this patient care.
--- NOTE | 2024-03-10 10:07 | P.PN_ITS ---
Subjective Subjective Date: 03/10/24 Time: 09:00 Interval history: Echo is unchanged from previous. Patient continues to have wheezing congestion and cough. Exam Data for Last 24 hours Vital signs and Labs for Last 24 Hours: Temp Pulse Resp BP Pulse Ox O2 Del Method O2 Flow Rate 98.3 F 114 H 22 142/74 H 90 L Room Air 2 03/10/24 08:00 03/10/24 08:00 03/10/24 08:00 03/10/24 08:00 03/10/24 08:00 03/10/24 08:00 03/10/24 00:00 Laboratory Results - last 24 hr 03/09/24 06:04: Total Counted 100, Neutrophils % (Manual) 67, Lymphocytes % (Manual) 24, Monocytes % (Manual) 8, Eosinophils % (Manual) 1, Platelet Estimate Normal, RBC Morphology Normal 03/10/24 06:04: WBC 16.0 H, RBC 5.06, Hgb 17.5, Hct 49.7, MCV 98.2 H, MCH 34.6 H , MCHC 35.2, RDW 13.9, Plt Count 399, MPV 11.5 H, Neut % (Auto) 51.6, Lymph % (Auto) 34.9, [place] % (Auto) 9.1, Eos % (Auto) 1.7, Baso % (Auto) 1.1, Neut # (Auto) 8.3 H, Lymph # (Auto) 5.6 H, [place] # (Auto) 1.5 H, Eos # (Auto) 0.3, Baso # (Auto) 0.2, PT 19.2 H, INR 1.82 H, Sodium 134 L, Potassium 3.1 L, Chloride 100, Carbon Dioxide 33 H, Anion Gap 4.1 L, BUN 27 H, Creatinine 1.30 H, Estimated Creat Clear 47, Estimated GFR 54 L, Est GFR ( Amer) 66, Glucose 92, Calcium 8.6, Magnesium 2.3, Total Bilirubin 1.3, AST 43, ALT 36, Alkaline Phosphatase 95, Total Protein 6.5, Albumin 3.7, Globulin 2.8, Albumin/Globulin Ratio 1.3 I & O for Last 24 hours: Intake & Output 03/07/24 03/08/24 03/09/24 03/10/24 23:59 23:59 23:59 23:59 Intake Total 1560 / 1560 1350 / 1590 600 / 600 Output Total 0 / 0 600 / 1240 3575 / 3575 600 / 600 Balance 0 / 0 960 / 320 -2225 / -1985 0 / 0 Weight 259 lb 4 oz 259 lb 4.006 oz 258 lb 4 oz 257 lb 1.6 oz Microbiology Reports for the Last 24 Hours: Microbiology 03/07/24 14:13 Blood Blood Culture - Preliminary NO GROWTH AFTER 48 HOURS 03/07/24 14:09 Blood Blood Culture - Preliminary NO GROWTH AFTER 48 HOURS 03/07/24 13:35 Urine,Clean Catch Urine Culture - Final Multiple organisms, suggests contamination. 03/07/24 Unknown Sputum - Expectorated Sputum Gram Stain - Final 03/07/24 Unknown Sputum - Expectorated Sputum Sputum Culture - Preliminary Constitutional Constitutional: no acute distress, obese and cooperative *Routine HEENT Exam Eye: Present PERRL *Routine Respiratory Exam Respiratory: Present CTA bilaterally; Absent accessory muscle use, wheezes or crackles Comments: Mild diffuse wheezing and productive cough *Routine Cardiovascular Exam Cardiovascular: Present RRR, Normal S1 and Normal S2; Absent murmur, gallop or rubs *Routine Abdominal Exam Abdominal: Present soft and distended; Absent tenderness *Routine Extremities Exam Extremities: Present pulses intact; Absent cyanosis or edema *Routine Skin Exam Skin: Present intact; Absent erythema or wounds *Routine Neurological Exam Neurological: Present alert and oriented X3 Routine Psychiatric Exam Psychiatric: Present cooperative Progress Note: A&P Assessment and plan (1) RSV (respiratory syncytial virus pneumonia): Status: Acute (2) Acute and chronic respiratory failure with hypoxia: Status: Acute Assessment and Plan Assessment and Plan for All Diagnoses:: COPD/ILD with acute RSV pneumonia -Per pulmonology Moderate aortic stenosis -Unchanged on echo here, no evidence of acute CHF Nonobstructive CAD -Patient denies anginal symptoms *No acute CV changes noted this admission. Recommend continue treatment for RSV pneumonia. Please advise if we can be of further assistance while admitted otherwise patient can follow-up with us 2 weeks post discharge
[2024-03-10] MEDS: POTASSIUM CHLORIDE 20MEQ TAB 40 MEQ PO (12:06)
--- NOTE | 2024-03-10 12:06 | XR_ITS ---
FINAL REPORT CLINICAL HISTORY: PNM COMPARISON: 03/07/2024 FINDINGS: No acute pulmonary opacity is present. There is no evidence of effusion or pneumothorax. Mediastinum is unremarkable. Cardiomegaly appears stable. IMPRESSION: Cardiomegaly without interval change. Reviewed, Interpreted and Dictated by Juan Alberto Overton MD Transcribed by Belinda Dan Authenticated and [facility]
[2024-03-10] MEDS: WARFARIN 5MG TABLET 7.5 MG PO (12:07)
[2024-03-10 14:35] LABS: Eosinophils % 1 % (0-3); Lymphocytes % 37 % (10-50); Monocytes % 4 % (2-9); Neutrophils % 58 % (42-76); Platelet Estimate Normal; RBC Morphology Normal; Total Cells Counted 100
--- NOTE | 2024-03-10 15:54 | P.DS_ITS ---
General Admission date:: 03/07/24 HPI HPI HPI: 73-year-old male with significant past medical history of interstitial lung disease, ISAAC on CPAP, home O2 at night, hypertension, hyperlipidemia, chronic anticoagulation with Coumadin, CHF, pulmonary hypertension, and aortic valve stenosis. He presented to the ER with worsening cough and shortness of breath over the past 3 to 4 days. Symptoms have progressed. His primary care prescrib ed antibiotics 4 days ago for bronchitis/pneumonia. Symptoms are just not improved. He has been using his nebulizer at home. Having a hard time laying flat to sleep. Denies any chest pain, syncope, increased confusion, nausea or vomiting. Has had some increased swelling in his legs. Workup in the ER concerning for increased/worsening respiratory failure and increased volume. Found to have left lower lobe pneumonia on chest imaging. Comprehensive respiratory panel positive for RSV. Necessitating 5 to 6 L to maintain sats above 90%. Medicine was consulted for admission and further management of acute on chronic respiratory failure and CHF exacerbation in the setting of RSV pneumonia. On arrival to the floor, patient is more comfortable on 5 L. Denies any chest pain. History obtained from patient and his ex- who is his caregiver. Alert and oriented on exam. Exam Data for Last 24 hours Vital signs and Labs for Last 24 Hours: Temp Pulse Resp BP Pulse Ox O2 Del Method O2 Flow Rate 98.8 F 97 H 22 118/75 92 L Nasal Cannula 2 03/10/24 12:00 03/10/24 12:00 03/10/24 12:00 03/10/24 12:00 03/10/24 12:00 03/10/24 15:00 03/10/24 15:00 Laboratory Results - last 24 hr 03/10/24 06:04: WBC 16.0 H, RBC 5.06, Hgb 17.5, Hct 49.7, MCV 98.2 H, MCH 34.6 H , MCHC 35.2, RDW 13.9, Plt Count 399, MPV 11.5 H, Neut % (Auto) 51.6, Lymph % (Auto) 34.9, Crockett % (Auto) 9.1, Eos % (Auto) 1.7, Baso % (Auto) 1.1, Neut # (Auto) 8.3 H, Lymph # (Auto) 5.6 H, Crockett # (Auto) 1.5 H, Eos # (Auto) 0.3, Baso # (Auto) 0.2, Total Counted 100, Neutrophils % (Manual) 58, Lymphocytes % (Manual) 37, Monocytes % (Manual) 4, Eosinophils % (Manual) 1, Platelet Estimate Normal, RBC Morphology Normal, PT 19.2 H, INR 1.82 H, Sodium 134 L, Potassium 3.1 L, Chloride 100, Carbon Dioxide 33 H, Anion Gap 4.1 L, BUN 27 H, Creatinine 1.30 H, Estimated Creat Clear 47, Estimated GFR 54 L, Est GFR ( Amer) 66, Glucose 92, Calcium 8.6, Magnesium 2.3, Total Bilirubin 1.3, AST 43, ALT 36, Alkaline Phosphatase 95, Total Protein 6.5, Albumin 3.7, Globulin 2.8, Albumin/ Globulin Ratio 1.3 I & O for Last 24 hours: Intake & Output 03/07/24 03/08/24 03/09/24 03/10/24 23:59 23:59 23:59 23:59 Intake Total 1560 / 1560 1350 / 1590 960 / 960 Output Total 0 / 0 600 / 1240 3575 / 3575 600 / 600 Balance 0 / 0 960 / 320 -2225 / -1985 360 / 360 Weight 117.594 kg 117.594 kg 117.14 kg 116.6 kg Microbiology Reports for the Last 24 Hours: Microbiology 03/07/24 Unknown Sputum - Expectorated Sputum Gram Stain - Final 03/07/24 Unknown Sputum - Expectorated Sputum Sputum Culture - Final 03/07/24 14:13 Blood Blood Culture - Preliminary NO GROWTH AFTER 48 HOURS 03/07/24 14:09 Blood Blood Culture - Preliminary NO GROWTH AFTER 48 HOURS 03/07/24 13:35 Urine,Clean Catch Urine Culture - Final Multiple organisms, suggests contamination. Results Data Completed and Pending Labs on day of discharge: Labs from last 24 hours 03/10/24 06:04 WBC 16.0 H RBC 5.06 Hgb 17.5 Hct 49.7 MCV 98.2 H MCH 34.6 H MCHC 35.2 RDW 13.9 Plt Count 399 MPV 11.5 H Neut % (Auto) 51.6 Lymph % (Auto) 34.9 Crockett % (Auto) 9.1 Eos % (Auto) 1.7 Baso % (Auto) 1.1 Neut # (Auto) 8.3 H Lymph # (Auto) 5.6 H Crockett # (Auto) 1.5 H Eos # (Auto) 0.3 Baso # (Auto) 0.2 Total Counted 100 Neutrophils % (Manual) 58 Lymphocytes % (Manual) 37 Monocytes % (Manual) 4 Eosinophils % (Manual) 1 Platelet Estimate Normal RBC Morphology Normal PT 19.2 H INR 1.82 H Sodium 134 L Potassium 3.1 L Chloride 100 Carbon Dioxide 33 H Anion Gap 4.1 L BUN 27 H Creatinine 1.30 H Estimated Creat Clear 47 Estimated GFR 54 L Est GFR ( Amer) 66 Glucose 92 Calcium 8.6 Magnesium 2.3 Total Bilirubin 1.3 AST 43 ALT 36 Alkaline Phosphatase 95 Total Protein 6.5 Albumin 3.7 Globulin 2.8 Albumin/Globulin Ratio 1.3 Preliminary micro results at discharge 03/07/24 14:13 Blood Culture - Preliminary Blood NO GROWTH AFTER 48 HOURS 03/07/24 14:09 Blood Culture - Preliminary Blood NO GROWTH AFTER 48 HOURS DS: Diagnosis Discharge Diagnosis (1) RSV (respiratory syncytial virus pneumonia): Status: Acute Code(s): J12.1 - Respiratory syncytial virus pneumonia (2) Acute and chronic respiratory failure with hypoxia: Status: Acute Code(s): J96.21 - Acute and chronic respiratory failure with hypoxia Meds Home Medications and Allergies Home Medications ?Medication ?Instructions ?Recorded ?Confirmed ?Type warfarin 5 mg tablet 5 mg PO SUTUWETHSA 06/25/21 03/08/24 History warfarin 5 mg tablet 7.5 mg PO MOFR 12/01/21 03/08/24 History citalopram 20 mg tablet 20 mg PO DAILY dementia 30 days 12/22/22 03/08/24 Rx #90 tabs bumetanide 1 mg tablet 2 mg (2 x 1 mg) PO DAILY #180 tabs 04/13/23 03/08/24 Rx fluticasone fur. 100 mcg-umeclid 1 inh inhalation DAILY 90 days #90 10/07/23 03/08/24 Rx 62.5 mcg-vilant 25 mcg ea inhalat.powder (Trelegy Ellipta) levocetirizine 5 mg tablet 5 mg PO DAILY 10/11/23 03/08/24 History albuterol sulfate 90 mcg/actuation 1 inh inhalation QID PRN shortness 12/01/23 03/08/24 Rx aerosol inhaler of breath or wheezing 90 days #8.5 grams azelastine 137 mcg (0.1 %) nasal 1 spray intranasal BID 90 days #90 12/01/23 03/08/24 Rx spray mL fluticasone propionate 50 2 spray intranasal DAILY 90 days 12/01/23 03/08/24 Rx mcg/actuation nasal #16 grams spray,suspension (Flonase Allergy Relief) empagliflozin 10 mg tablet 10 mg PO DAILY 12/20/23 03/08/24 History (Jardiance) ergocalciferol (vitamin D2) 1,250 1,250 mcg PO Q2W 12/20/23 03/08/24 History mcg (50,000 unit) capsule memantine 10 mg tablet 10 mg PO BID dementia 30 days #60 12/29/23 03/08/24 Rx tabs thiamine HCl (vitamin B1) 100 mg 100 mg PO DAILY #30 tabs 12/29/23 03/08/24 Rx tablet carvedilol 3.125 mg tablet 3.125 mg PO BID 01/10/24 03/08/24 History enoxaparin 120 mg/0.8 mL 120 mg (0.8 mL) SQ Q12H #16 mL 02/09/24 03/08/24 Rx subcutaneous syringe benzonatate 100 mg capsule 100 mg PO BID PRN cough #20 caps 03/02/24 03/08/24 Rx atorvastatin 80 mg tablet 80 mg PO DAILY 03/08/24 03/08/24 History levothyroxine 50 mcg tablet 50 mcg PO DAILY 03/08/24 03/08/24 History levofloxacin 750 mg tablet 750 mg PO DAILY 3 days #3 tabs 03/10/24 Rx New Prescriptions to Start Prescriptions: levofloxacin Salbador Townsend Allergies Allergy/AdvReac Type Severity Reaction Status Date / Time No Known Allergies Allergy Verified 03/02/24 11:09 Discharge Plan Disposition Patient Disposition: Home, Self-Care Discharge Order Discharge Orders: Discharge Order (Routine); Ordered 03/10/24 Ordered By: Salbador Townsend Follow up Plan Follow up with: Skyler Guerra MD [Physician] - 03/17/24 Prescriptions/Medication Reconciliation: New levofloxacin 750 mg tablet 750 mg PO DAILY 3 Days Qty: 3 0RF Continued warfarin 5 mg tablet 5 mg PO RITA Garcíalegy Ellipta 100-62.5-25 mcg blister with device 1 inh inhalation DAILY 90 Days Qty: 90 2RF ergocalciferol (vitamin D2) 1,250 mcg (50,000 unit) capsule 1,250 mcg PO Q2W Patient Comments: TAKE 1 CAPSULE BY MOUTH EVERY TWO WEEKS Jardiance 10 mg tablet 10 mg PO DAILY levocetirizine 5 mg tablet 5 mg PO DAILY Patient Comments: TAKE 1 TABLET BY MOUTH ONCE DAILY DIRECTED FOR ALLERGIES memantine 10 mg tablet 10 mg PO BID 30 Days Qty: 60 5RF thiamine HCl (vitamin B1) 100 mg tablet 100 mg PO DAILY Qty: 30 5RF albuterol sulfate 90 mcg/actuation HFA aerosol inhaler 1 inh IH QID PRN (Reason: shortness of breath or wheezing) 90 Days Qty: 8.5 3RF azelastine 137 mcg (0.1 %) spray,non-aerosol 1 spray intranasal BID 90 Days Qty: 90 3RF Rx Instructions: administer into each nostril fluticasone propionate [Flonase Allergy Relief] 50 mcg/actuation sp ray,suspension 2 spray intranasal DAILY 90 Days Qty: 16 3RF Rx Instructions: administer into each nostril carvedilol 3.125 mg tablet 3.125 mg PO BID Patient Comments: TAKE 1 TABLET BY MOUTH TWICE DAILY benzonatate 100 mg capsule 100 mg PO BID PRN (Reason: cough) Qty: 20 0RF citalopram 20 mg tablet 20 mg PO DAILY 30 Days Qty: 90 3RF bumetanide 1 mg tablet 2 mg PO DAILY Qty: 180 3RF enoxaparin 120 mg/0.8 mL syringe 120 mg SQ Q12H Qty: 16 0RF Rx Instructions: Start one injection every 12 hours 5 days prior to surgery. No injection on the morning of surgery. Resume both lovenox and warfarin after surgery until INR >2.0 then stop lovenox. atorvastatin 80 mg tablet 80 mg PO DAILY Patient Comments: TAKE 1 TABLET BY MOUTH ONCE DAILY levothyroxine 50 mcg tablet 50 mcg PO DAILY warfarin 5 mg Tablet 7.5 mg PO MOFR Problem Reconciliation Problems Reviewed?: Yes Patient Discharge Instructions Patient Instructions: DI for Heart Attack, Heart Attack, DI for Pneumonia -- Adult, Coumadin Vitamin K/ Diet Print Language: Tongan Providers Primary Care Provider: Lidya Douglas Admit Provider: Naresh Moura Attending Provider: Naresh Moura
--- NOTE | 2024-03-10 18:08 | P.PN_ITS ---
Subjective *Date: 03/12/24 *Time: 21:54 Exam Data for Last 24 hours Vital signs and Labs for Last 24 Hours: Temp Pulse Resp BP Pulse Ox O2 Del Method O2 Flow Rate 98.1 F 95 H 22 111/57 L 94 L Nasal Cannula 2 03/10/24 16:00 03/10/24 16:00 03/10/24 16:00 03/10/24 16:00 03/10/24 16:00 03/10/24 16:00 03/10/24 16:00 Laboratory Results - last 24 hr 03/10/24 06:04: WBC 16.0 H, RBC 5.06, Hgb 17.5, Hct 49.7, MCV 98.2 H, MCH 34.6 H , MCHC 35.2, RDW 13.9, Plt Count 399, MPV 11.5 H, Neut % (Auto) 51.6, Lymph % (Auto) 34.9, Saunders % (Auto) 9.1, Eos % (Auto) 1.7, Baso % (Auto) 1.1, Neut # (Auto) 8.3 H, Lymph # (Auto) 5.6 H, Saunders # (Auto) 1.5 H, Eos # (Auto) 0.3, Baso # (Auto) 0.2, Total Counted 100, Neutrophils % (Manual) 58, Lymphocytes % (Manual) 37, Monocytes % (Manual) 4, Eosinophils % (Manual) 1, Platelet Estimate Normal, RBC Morphology Normal, PT 19.2 H, INR 1.82 H, Sodium 134 L, Potassium 3.1 L, Chloride 100, Carbon Dioxide 33 H, Anion Gap 4.1 L, BUN 27 H, Creatinine 1.30 H, Estimated Creat Clear 47, Estimated GFR 54 L, Est GFR ( Amer) 66, Glucose 92, Calcium 8.6, Magnesium 2.3, Total Bilirubin 1.3, AST 43, ALT 36, Alkaline Phosphatase 95, Total Protein 6.5, Albumin 3.7, Globulin 2.8, Albumin/Globulin Ratio 1.3 I & O for Last 24 hours: Intake & Output 03/07/24 03/08/24 03/09/24 03/10/24 23:59 23:59 23:59 23:59 Intake Total 1560 / 1560 1350 / 1590 960 / 960 Output Total 0 / 0 600 / 1240 3575 / 3575 600 / 600 Balance 0 / 0 960 / 320 -2225 / -1985 360 / 360 Weight 117.594 kg 117.594 kg 117.14 kg 116.6 kg Microbiology Reports for the Last 24 Hours: Microbiology 03/07/24 Unknown Sputum - Expectorated Sputum Gram Stain - Final 03/07/24 Unknown Sputum - Expectorated Sputum Sputum Culture - Final 03/07/24 14:13 Blood Blood Culture - Preliminary NO GROWTH AFTER 48 HOURS 03/07/24 14:09 Blood Blood Culture - Preliminary NO GROWTH AFTER 48 HOURS Constitutional Constitutional: no acute distress, obese and cooperative *Routine HEENT Exam Eye: Present PERRL *Routine Respiratory Exam Respiratory: Present CTA bilaterally; Absent accessory muscle use, wheezes or crackles Comments: Mild diffuse wheezing and productive cough *Routine Cardiovascular Exam Cardiovascular: Present RRR, Normal S1 and Normal S2; Absent murmur, gallop or rubs *Routine Abdominal Exam Abdominal: Present soft and distended; Absent tenderness *Routine Extremities Exam Extremities: Present pulses intact; Absent cyanosis or edema *Routine Skin Exam Skin: Present intact; Absent erythema or wounds *Routine Neurological Exam Neurological: Present alert and oriented X3 Routine Psychiatric Exam Psychiatric: Present cooperative Assessment and Plan *Assessment and plan (1) Sepsis: Status: Acute Category: Medical Code(s): A41.9 - Sepsis, unspecified organism (2) CHF exacerbation: Status: Acute Category: Medical Code(s): I50.9 - Heart failure, unspecified (3) Acute hypoxemic respiratory failure: Status: Acute Category: Medical Code(s): J96.01 - Acute respiratory failure with hypoxia (4) RSV (respiratory syncytial virus pneumonia): Status: Acute Category: Medical Code(s): J12.1 - Respiratory syncytial virus pneumonia (5) NSTEMI (non-ST elevated myocardial infarction): Status: Acute Category: Medical Code(s): I21.4 - Non-ST elevation (NSTEMI) myocardial infarction (6) Neutropenia: Status: Acute Category: Medical Code(s): D70.9 - Neutropenia, unspecified (7) MIGUEL A (acute kidney injury): Status: Acute Category: Medical Code(s): N17.9 - Acute kidney failure, unspecified (8) Chronic respiratory failure: Problem Comment: On Astral and O2 at night Status: Chronic Qualifiers: Respiratory failure complication: hypoxia Qualified Code(s): J96.11 - Chronic respiratory failure with hypoxia Category: Medical Code(s): J96.10 - Chronic respiratory failure, unspecified whether with hypoxia or hypercapnia (9) ISAAC (obstructive sleep apnea): Problem Comment: Stable Status: Chronic Category: Medical Code(s): G47.33 - Obstructive sleep apnea (adult) (pediatric) (10) Memory loss or impairment: Problem Comment: He was started on Namenda by Dr. Hi, previous PCP. Baseline MMSE MCI with memory loss, at risk for vascular dementia. 06/2023 brain MRI, B12, folate, TSH: No significant abnormalities. 12/29/2023: Stable Status: Chronic Category: Medical Code(s): R41.3 - Other amnesia (11) Obesity: Status: Acute Qualifiers: Body mass index: BMI 40.0-44.9 Obesity classification: adult class 3 (BMI >= 40) Obesity type: due to excess calories Serious obesity comorbidity presence: with serious comorbidity Qualified Code(s): E66.01 - Morbid (severe) obesity due to excess calories; Z68.41 - Body mass index [BMI] 40.0-44.9, adult Category: Medical Code(s): E66.9 - Obesity, unspecified (12) CKD (chronic kidney disease) stage 3, GFR 30-59 ml/min: Status: Chronic Qualifiers: Chronic kidney disease stage 3 subtype: stage 3a (GFR 45-59) Qualified Code(s): N18.31 - Chronic kidney disease, stage 3a Category: Medical Code(s): N18.30 - Chronic kidney disease, stage 3 unspecified (13) COPD exacerbation: Status: Chronic Category: Medical Code(s): J44.1 - Chronic obstructive pulmonary disease with (acute) exacerbation (14) DVT (deep venous thrombosis): Status: Resolved Category: Medical Code(s): I82.409 - Acute embolism and thrombosis of unspecified deep veins of unspecified lower extremity (15) Aortic valve stenosis: Status: Chronic Qualifiers: Cardiac valve disease etiology: etiology unspecified Qualified Code(s): I35.0 - Nonrheumatic aortic (valve) stenosis Category: Medical Code(s): I35.0 - Nonrheumatic aortic (valve) stenosis (16) History of pulmonary embolism: Status: Chronic Category: Medical Code(s): Z86.711 - Personal history of pulmonary embolism (17) Pulmonary hypertension: Status: Chronic Category: Medical Code(s): I27.20 - Pulmonary hypertension, unspecified Plan Reji Carrillo is a 73-year-old male with multiple comorbidities. Presents with worsening shortness of breath over the past 3 to 4 days. Failed outpatient therapy with antibiotics. Workup in the ER concerning for pneumonia, acute on chronic hypoxemic respiratory failure, RSV, CHF exacerbation. Case discussed with ER physician, request admission for further management. I agreed to admit for further treatment including diuresis and antibiotic therapy. Cardiology and pulmonology seeing patient today. Continues to require inpatient management. Showing some improvement with symptomatic treatment. Problems addressed as follows: Acute on chronic hypoxic respiratory failure Left lower lobe pneumonia RSV - CTA does show LLL pneumonia. - Procalcitonin normal at 0.057. - WBC improving to 16 from 17 yesterday. - However, patient states he is still having some trouble breathing compared to baseline. Will continue to treat inpatient given high risk of decompensation. - Continue Levaquin at the recommendation of pulmonology per discussion. Continue CPAP at night or while asleep. Continue Trelegy 100 inhaler along with DuoNebs every 6 hours. - Continue supplemental oxygen as needed for goal sats greater than 90%. On 2 L on rounds. Wears 3-1/2 at night through his CPAP. Normally on room air at home during the day. No need for steroids. Acute on chronic heart failure with preserved ejection fraction NSTEMI type 2 -BNP of 1000 on admission. No chest pain. EKG with no ischemic changes. Likely supply/demand mismatch in the setting of hypoxia and pneumonia. - Cardiology evaluated patient today, discussed case, recommend continuing carvedilol, statin, warfarin. Repeat echo. - Continue carvedilol 3.125 mg twice daily, continue Jardiance 10 mg daily - Continue Bumex 2 mg IV twice daily, Renal function stable Cr 1.3. - Follow-up ECHO Continue levothyroxine 50 g daily for hypothyroid Mild cognitive impairment: Continues citalopram 20 mg daily, memantine 10 mg twice daily. MIGUEL A on CKD. BUN 29, creatinine 1.3. Potassium 3.9, magnesium 2.5. Baseline appears to be 1-1.1. Caution with nephrotoxins. Repeat CBC, CMP, magnesium ordered for the morning. 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 Subtherapeutic with INR of 1.8. Continue Lovenox 1 mg/kg subcu twice daily. Continue warfarin 7.5 mg daily. Repeat INR ordered for the morning. Full code Cardiac diet Warfarin, INR pending in the morning. INR 1.5 on admission
[2024-03-10] MEDS: AZELASTINE NASAL SPRAY 30ML BOTTLE NS (20:12)
[2024-03-11] VITALS (7 sets, daily range): BP systolic 128–142; BP diastolic 72–78; PULSE 78–100; RESP 19–22; TEMP 36.6–37.3; O2SAT 89–96; BMI 40.1
--- NOTE | 2024-03-11 03:56 | PC.NURSE ---
Patient is alert and oriented x4. He is hard of hearing and wears a hearing aid. Patient was observed to have eyes closed, respirations even and unlabored on 1 L of oxygen via nasal cannula, and no apparent distress throughout the night. While awake, purse lipped breathing was noticed from the patient. Patient has been tolerating 1 L of oxygen this shift with oxygen saturations > 90%, and patient has been using his personal CPAP at the bedside for sleep. Incentive spirometer is at the bedside for use. Upon auscultation of his lungs, expiratory wheezing could be heard. Patient continues to have an intermittent, productive cough. Patient's heart rate has been slightly elevated this shift (90s to 100s); bowel sounds were active. He reports having large bowel movements during his stay. Patient has been ambulating with a cane to the bathroom this shift; he tolerates ambulation fairly. Patient has been drinking adequate ice water this shift. Scheduled medications were administered as appropriately per MAY, including nasal spray. At this time, the patient is resting in bed on his right side with no further complaints. No acute changes noted thus far. Call light within reach. Contact precautions sign on door for RSV.
[2024-03-11] MEDS: LEVOTHYROXINE 50MCG (0.05MG) TAB 50 MCG PO (06:20)
[2024-03-11] MEDS: FLUTICASONE/UMECLIDIN/VILANTER 100/62.5/25MCG INHALER 1 PUFF IH (06:47)
[2024-03-11 07:32] LABS: Chloride 100 mmol/L (98-107); Sodium 134 mmol/L (136-145)
[2024-03-11 07:33] LABS: INR 1.71 (0.9-1.1); Potassium 3.9 mmoL/L (3.5-5.1); Prothrombin Time 18.2 seconds (10.1-12.5)
[2024-03-11 07:35] LABS: Alanine Aminotransferase 55 U/L (12-78); Albumin/Globulin Ratio 1.3 (1.1-1.8); Alkaline Phosphatase 92 U/L (38-126); Anion Gap 5.9 mEq/L (5-15); Aspartate Amino Transferase 59 U/L (17-59); Bilirubin,Total 1.6 mg/dl (0.2-1.3); Blood Urea Nitrogen 28 mg/dl (9-20); Carbon Dioxide 32 mmol/L (22.0-30.0); Creatinine Clearance Estimated 44 mL/min (50-200); Estimated Glomerular Filt Rate 50 ml/min (>60); GFR (African American) 60 ML/MIN (>60)
[2024-03-11 07:36] LABS: Calcium 8.8 mg/dl (8.4-10.2); Glucose 105 mg/dl (74-100)
[2024-03-11 07:45] LABS: Hematocrit 50.4 % (42.0-52.0); Hemoglobin 17.5 g/dL (14.1-18.0); Lymphocytes % 33.4 % (10-50); Mean Corpuscular HGB Conc 34.7 g/dL (31.8-35.4); Mean Corpuscular Volume 97.9 fl (80-94); Mean Platelet Volume 11.4 fl (7.4-10.4); Monocytes % 8.7 % (1.7-9.3); Neutrophils % 53.4 % (37.0-80.0); Platelet Count 381 K/mm3 (142-424); Red Blood Count 5.15 M/mm3 (4.60-6.20); Red Cell Distribution Width 13.8 % (11.5-17.5); White Blood Count 19.1 K/mm3 (4.8-10.8)
[2024-03-11 07:46] LABS: Basophils # 0.2 K/mm3 (0-0.2); Basophils % 0.8 % (0.1-2.0); Eosinophils # 0.3 K/mm3 (0.0-0.4); Eosinophils % 1.8 % (0.1-12.0); Lymphocytes # 6.4 K/mm3 (0.7-4.5); Monocytes # 1.7 K/mm3 (0.1-1.0); Neutrophils # 10.2 K/mm3 (1.8-7.8)
[2024-03-11 07:47] LABS: MANUAL DIFFERENTIAL MANUAL DIFFERENTIAL (MANUAL DIFF)
[2024-03-11 07:48] LABS: Magnesium 2.3 mg/dl (1.6-2.3)
[2024-03-11] MEDS: CARVEDILOL 3.125MG TABLET 3.125 MG PO ×2 (08:37→21:35)
[2024-03-11] MEDS: MEMANTINE 10MG TABLET 10 MG PO ×2 (08:37→21:35)
[2024-03-11] MEDS: DOXYCYCLINE HYCLATE 100 MG in 0.9 % SODIUM CHLORIDE 250 ML 166.667 MG IV (08:37)
[2024-03-11] MEDS: EMPAGLIFLOZIN 10MG TABLET 10 MG PO (08:37)
[2024-03-11] MEDS: CITALOPRAM 20MG TABLET 20 MG PO (08:37)
[2024-03-11] MEDS: ENOXAPARIN 120MG/0.8ML SYRINGE 115 MG SUBCUT ×2 (08:37→21:30)
[2024-03-11] MEDS: BUMETANIDE 1MG/4ML VIAL 2 MG IV ×2 (08:37→16:48)
[2024-03-11] MEDS: AZELASTINE NASAL SPRAY 30ML BOTTLE NS ×2 (08:38→21:35)
[2024-03-11 09:12] LABS: Procalcitonin 0.108 ng/mL (0.0-2.0)
[2024-03-11 09:26] LABS: Thyroid Stimulating Hormone 6.73 uIU/mL (0.465-4.68)
[2024-03-11] MEDS: WARFARIN 5MG TABLET 10 MG PO (11:19)
--- NOTE | 2024-03-11 11:59 | HMH.PTEV ---
Physical Therapy Evaluation Rehab PT IP Evaluation Start: 03/10/24 16:53 Freq: ONCE Status: Active Protocol: Document 03/11/24 11:55 MICHEL (Rec: 03/11/24 11:59 MICHEL [id number]) Subjective/History History History 73-year-old male with significant past medical history of interstitial lung disease, ISAAC on CPAP, home O2 at night, hypertension, hyperlipidemia, chronic anticoagulation with Coumadin, CHF, pulmonary hypertension, and aortic valve stenosis. Found to be RSV positive. He reports he lives alone, 3-4 JOE the home, and he is generally independent with all mobility at baseline using a SC. Subjective Subjective Currently he reports pain in his L hip and feeling rough due to generalized fatigue. He does agree to mobility assessment. A&O x 3, mild delay in answering questions, but pt is hard of hearing also . Rehab PT IP Eval Objective Appearance Patient Behavior Appropriate Patient Orientation Person,Place,Time Difficulty following instructions none Speech Pattern Clear Ambulation Patient Able to Ambulate Yes Ambulation Observation IP General Gait Pattern Observation Wide Based Gait Ambulation Distance (feet) 5 Ambulation Assistive Device Straight Cane Ambulation Ability Contact Guard/Hand Hold Balance Ability to Arise Able, uses arms to help Sitting Balance Steady, safe Standing Balance Steady, wide stance Dynamic Sitting Balance Ability Good Dynamic Standing Balance Ability Fair Transfers Bed Transfer Ability Contact Guard/Hand Hold Chair Transfer Ability Contact Guard/Hand Hold Sit to Stand Bed Transfer Ability Contact Guard/Hand Hold Sit to Stand Chair Transfer Ability Contact Guard/Hand Hold Rehab PT IP prob,goals,plan Problems Date of Evaluation: 03/11/24 PT IP Problems Bed Mobility,Transfers,Gait Rehab Potential Rehab Potential Good Plan PT Intervention Plan Bed Mobility,Transfers,Gait, Therapeutic Exercise PT Plan Frequency Daily Duration LOS Discharge Goals Bed Transfer Ability Supervision/Stand by Sit to Stand Chair Transfer Ability Supervision/Stand by Ambulation Assistive Device Straight Cane Ambulation Distance (feet) 30 Discharge Plan PT Discharge Plan Pt is currently most appropriate to return home if he has assistance available to help with ADLs. Skilled therapy is indicate to improve overall strength and endurance to activity to aid pt return to PLOF. Eval Complexity Eval Charge Codes 85564 - High Complexity PHYSICIAN CERTIFICATION: I certify the specified therapy services for Reji Blas Lorena are required, authorized, and reviewed every 30 days.
[2024-03-11 12:12] LABS: Anisocytosis 2+; Eosinophils % 1 % (0-3); Giant Platelets 1+; Lymphocytes % 39 % (10-50); Monocytes % 11 % (2-9); Neutrophils % 48 % (42-76); Platelet Estimate Normal; Total Cells Counted 100
[2024-03-11 12:13] LABS: Burr Cells 1+; Macrocytosis 2+; Microcytosis 1+; Polychromasia 1+
[2024-03-11 14:29] LABS: Hematocrit 48.8 % (42.0-52.0); Hemoglobin 17.5 g/dL (14.1-18.0); Lymphocytes % 25.7 % (10-50); Mean Corpuscular HGB Conc 35.9 g/dL (31.8-35.4); Mean Corpuscular Hemoglobin 35.7 pg (27.0-31.2); Mean Corpuscular Volume 99.6 fl (80-94); Mean Platelet Volume 11.4 fl (7.4-10.4); Monocytes % 9.4 % (1.7-9.3); Neutrophils % 60.3 % (37.0-80.0); Platelet Count 359 K/mm3 (142-424); Red Cell Distribution Width 13.8 % (11.5-17.5); White Blood Count 20.3 K/mm3 (4.8-10.8)
[2024-03-11 14:33] LABS: Basophils # 0.2 K/mm3 (0-0.2); Basophils % 0.7 % (0.1-2.0); Eosinophils # 0.4 K/mm3 (0.0-0.4); Lymphocytes # 5.2 K/mm3 (0.7-4.5); Monocytes # 1.9 K/mm3 (0.1-1.0); Neutrophils # 12.3 K/mm3 (1.8-7.8)
[2024-03-11] MEDS: ACETAMINOPHEN 325MG TAB 650 MG PO (16:48)
[2024-03-11 17:25] LABS: Microscopic, Urine URINE MICROSCOPIC (MICROSCOPIC)
[2024-03-11 17:28] LABS: Appearance,Urine CLEAR (Clear); Bilirubin,Urine Negative (Negative); Blood, Urine Negative (Negative); Color,Urine YELLOW (Yellow); Glucose,Urine (UA) 3+ (Negative); Ketones,Urine Negative (Negative); Leukocyte Esterase,Urine Negative (Negative); Nitrate,Urine Negative (Negative); Protein,Urine Negative (Negative); Urobilinogen,Urine 0.2 EU/dl (0.2)
[2024-03-11] MEDS: VANCOMYCIN HCL 2,000 MG in 0.9 % SODIUM CHLORIDE 500 ML 166 MG IV (17:57)
--- NOTE | 2024-03-11 18:48 | PC.NURSE ---
pt a&ox4. Resting supine in bed with CPAP in place. tolerating well with sats >90%. pt ambulates to and from the bathroom independently using cane. hopeful discharge home after morning labs. abx given per may. no complaints at this time. call light within reach.
--- NOTE | 2024-03-11 22:19 | PC.NURSE ---
Late Entry (for around 21:30): patient's IV access (22 in right forearm) started to leak, and he was complaining of a burning sensation. Current infusion (vancomycin from previous shift) was stopped and IV site was assessed. Site was removed. I attempted to insert an IV on the patient's left upper extremity and was unsuccessful the first time. Vancomycin infusion and following antibiotic (IV doxycycline) will be resumed as appropriately as soon as IV access is regained.
[2024-03-11] MEDS: TRAMADOL 50MG TABLET 50 MG PO (23:02)
--- NOTE | 2024-03-11 23:35 | PC.NURSE ---
Pt IV infiltrated earlier in shift during vanc administration, new IV placed in Left forearm, resumed vanc. Patient needed to use urinal, vanc was done, unhooked and flushed. Switched antibiotic to doxy, when flushing IV, patient stated it was painful, I dont want to do this shit anymore , told patient I would have to take IV out, he agreed, patient stated he did not want to be stuck anymore and said maybe tomorrow he would agree, but he stated I want to sleep and I cant get it with you guys . This RN took out IV, called [facility] to notify, stated to document refusal.
--- NOTE | 2024-03-12 00:15 | PC.NURSE ---
Addendum entered by Carol Fischer RN 03/12/24 00:18: A one time order for tramadol 100 mg PO was obtained. Original Note: At this time, Seda TREJO was paged for additional pain medication orders. Patient reported (around 00:12) that the tramadol dose (50 mg) did help him, but it did not last very long. He stated that he was still having severe pain (rated as a level 7) in his lower back and left hip.
[2024-03-12] MEDS: TRAMADOL 50MG TABLET 100 MG PO (00:24)
[2024-03-12 04:00] VITALS: BP 122/65; PULSE 94; RESP 18; TEMP 36.6; O2SAT 96; BMI 40.4
--- NOTE | 2024-03-12 04:23 | PC.NURSE ---
Patient is alert and oriented x4 and hard of hearing. Patient was found to be more awake this shift compared to last night. Patient has started to complain of significant pain in his lower back and hips this shift; he has been given one time doses of tramadol per MAR. Pillows were also placed underneath the patient's left hip and knee for additional attempts to relieve his pain. Patient has been without IV access for the majority of the shift per his refusal (see prior note). Scheduled PO medications and nasal spray were administered as appropriately per MAY. During wakeful periods, patient was noticed to continue purse-lipped breathing. His personal CPAP has remained in place, as patient favored, this shift; oxygen saturations have remained > 90%. Upon auscultation of his lungs, expiratory wheezing could be heard. He reports having a dry cough. Auscultation of his heart and bowels were within normal findings. Umbilical hernia protrusion remains unchanged compared with previous assessments. Patient has been using his urinal at the bedside. At this time, the patient is resting in bed with eyes closed and even respirations. Patient does not have any further complaints. No acute changes noted thus far. Call light within reach.
--- NOTE | 2024-03-12 05:30 | PC.NURSE ---
Addendum entered by Carol Fischer RN 03/12/24 06:23: Patient stated this morning that the [place] helped ease his pain better than the previous tramadol. Original Note: Patient reported having significant pain again this morning in his lower back and hip. Patient has got up to the side of the bed to attempt to relieve his pain. Seda TREJO was paged at this time for additional pain interventions.
[2024-03-12] MEDS: HYDROCODONE/APAP 5/325 MG TABLET 1 TAB PO (05:35)
[2024-03-12] MEDS: LEVOTHYROXINE 50MCG (0.05MG) TAB 50 MCG PO (06:17)
[2024-03-12 06:33] VITALS: O2SAT 90
[2024-03-12] MEDS: FLUTICASONE/UMECLIDIN/VILANTER 100/62.5/25MCG INHALER 1 PUFF IH (06:33)
[2024-03-12 08:00] VITALS: BP 125/76; PULSE 95; RESP 20; TEMP 36.8; O2SAT 90
--- NOTE | 2024-03-12 08:05 | P.CONPHA_ITS ---
Pharmacy Consult Date: 03/12/24 Time: 08:05 Referring provider: DR. BANGURA Reason for Consult:: VANCOMYCIN DOSING Allergies Allergy/AdvReac Type Severity Reaction Status Date / Time No Known Allergies Allergy Verified 03/02/24 11:09 Home Medications ?Medication ?Instructions ?Recorded ?Confirmed ?Type warfarin 5 mg tablet 5 mg PO SUTUWETHSA 06/25/21 03/08/24 History warfarin 5 mg tablet 7.5 mg PO MOFR 12/01/21 03/08/24 History citalopram 20 mg tablet 20 mg PO DAILY dementia 30 days 12/22/22 03/08/24 Rx #90 tabs bumetanide 1 mg tablet 2 mg (2 x 1 mg) PO DAILY #180 tabs 04/13/23 03/08/24 Rx fluticasone fur. 100 mcg-umeclid 1 inh inhalation DAILY 90 days #90 10/07/23 03/08/24 Rx 62.5 mcg-vilant 25 mcg ea inhalat.powder (Trelegy Ellipta) levocetirizine 5 mg tablet 5 mg PO DAILY 10/11/23 03/08/24 History albuterol sulfate 90 mcg/actuation 1 inh inhalation QID PRN shortness 12/01/23 03/08/24 Rx aerosol inhaler of breath or wheezing 90 days #8.5 grams azelastine 137 mcg (0.1 %) nasal 1 spray intranasal BID 90 days #90 12/01/23 03/08/24 Rx spray mL fluticasone propionate 50 2 spray intranasal DAILY 90 days 12/01/23 03/08/24 Rx mcg/actuation nasal #16 grams spray,suspension (Flonase Allergy Relief) empagliflozin 10 mg tablet 10 mg PO DAILY 12/20/23 03/08/24 History (Jardiance) ergocalciferol (vitamin D2) 1,250 1,250 mcg PO Q2W 12/20/23 03/08/24 History mcg (50,000 unit) capsule memantine 10 mg tablet 10 mg PO BID dementia 30 days #60 12/29/23 03/08/24 Rx tabs thiamine HCl (vitamin B1) 100 mg 100 mg PO DAILY #30 tabs 12/29/23 03/08/24 Rx tablet carvedilol 3.125 mg tablet 3.125 mg PO BID 01/10/24 03/08/24 History enoxaparin 120 mg/0.8 mL 120 mg (0.8 mL) SQ Q12H #16 mL 02/09/24 03/08/24 Rx subcutaneous syringe benzonatate 100 mg capsule 100 mg PO BID PRN cough #20 caps 03/02/24 03/08/24 Rx atorvastatin 80 mg tablet 80 mg PO DAILY 03/08/24 03/08/24 History levothyroxine 50 mcg tablet 50 mcg PO DAILY 03/08/24 03/08/24 History levofloxacin 750 mg tablet 750 mg PO DAILY 3 days #3 tabs 03/10/24 Rx New Prescriptions to Start Prescriptions: levofloxacin Salbador Bangura Height: 1.7 m Weight: 116.709 kg Laboratory Results:: Laboratory Results - last 24 hr 03/11/24 06:58: Total Counted 100, Neutrophils % (Manual) 48, Band Neutrophils % 1.0, Lymphocytes % (Manual) 39, Monocytes % (Manual) 11 H, Eosinophils % (Manual) 1, Platelet Estimate Normal, Giant Platelets 1+, Polychromasia 1+, Anisocytosis 2+, Microcytosis 1+, Macrocytosis 2+, Angella Cells 1+, Magnesium 2.3, Procalcitonin 0.108, TSH 6.73 H 03/11/24 14:05: WBC 20.3 H*, RBC 4.90, Hgb 17.5, Hct 48.8, MCV 99.6 H, MCH 35.7 H, MCHC 35.9 H, RDW 13.8, Plt Count 359, MPV 11.4 H, Neut % (Auto) 60.3, Lymph % (Auto) 25.7, [place] % (Auto) 9.4 H, Eos % (Auto) 2.0, Baso % (Auto) 0.7, Neut # (Auto) 12.3 H, Lymph # (Auto) 5.2 H, [place] # (Auto) 1.9 H, Eos # (Auto) 0.4, Baso # (Auto) 0.2 03/11/24 15:15: Urine Color Yellow, Urine Appearance Clear, Urine pH 6.0, Ur Specific [place] 1.010, Urine Protein Negative, Urine Glucose (UA) 3+, Urine Ketones Negative, Urine Blood Negative, Urine Nitrate Negative, Urine Bilirubin Negative, Urine Urobilinogen 0.2, Ur Leukocyte Esterase Negative, Urine RBC None, Urine WBC 3-5 Medical History: Medical History (Updated 03/08/24 @ 11:47 by Skyler Guerra MD) Acute and chronic respiratory failure with hypoxia SNHL (sensorineural hearing loss) ILD (interstitial lung disease) Sleep apnea Gall stone History of sleep apnea COPD exacerbation Allergic rhinitis Restrictive lung disease Allergic rhinitis History of smoking 30 or more pack years Dyspnea on exertion COPD (chronic obstructive pulmonary disease) Dyspnea on exertion Moderate aortic stenosis Mild aortic stenosis Pre-op evaluation HLD (hyperlipidemia) Pulmonary embolism CHF (congestive heart failure) Pulmonary hypertension HHD (hypertensive heart disease) CAD (coronary artery disease) DVT (deep venous thrombosis) Fatigue HTN (hypertension) Aortic valve stenosis Assessment and Plan Assessment and plan all Dx Assessment and Plan for all problems:: Pharmacokinetic dosing service Objective: Patient: Floor: Age: 73 yo Serum creatinine: 1.40 mg/dL Height: 66.9 Inches Weight (kg): 116.7 Assessment: IBW (kg): 65.87 Dosing wt(kg): 116.7 Estimated Creatinine clearance (ml/min): 45.1 CRCL method: Cockcroft and Gault using ibw(default). Drug selected: Vancomycin Loading dose (mg): Vd (liters): 93.4 (factor used: 0.8 L/kg) Jonh (hr-1): 0.042 Half life (hrs): 16.50 CLvanco=?? 3.923 L/hr Recommended dose: 2000 mg Interval: 24 hrs Infusion time (hrs): 2.0 Predicted peak (mcg/mL): 32.3 Predicted trough (mcg/mL): 12.82 Total body weight is being used for vancomycin dosing. Recommendations: Give Vancomycin 2000 mg q 24 hrs with an expected Cpeak of 32.3 mcg/ml and an expected Ctrough of 12.82 mcg/ml AUC 0-24 /DWYANE Data: DWAYNE 0.5 mcg/mL:?? AUC/DWAYNE:? 1019.6 DWAYNE 1.0 mcg/mL:?? AUC/DWAYNE:? 509.8 --------- DWAYNE 1.5 mcg/mL:?? AUC/DWAYNE:? 339.9 DWAYNE 2.0 mcg/mL:?? AUC/DWAYNE:? 254.9 Thank you for the consult, will continue to follow. -MANOJ CANTRELLD
[2024-03-12 08:21] LABS: INR 2.15 (0.9-1.1); Prothrombin Time 22.3 seconds (10.1-12.5)
[2024-03-12 08:27] LABS: Albumin Level 3.7 g/dl (3.5-5.0); Chloride 99 mmol/L (98-107); Potassium 3.6 mmoL/L (3.5-5.1); Sodium 129 mmol/L (136-145)
[2024-03-12 08:30] LABS: Alanine Aminotransferase 61 U/L (12-78); Albumin/Globulin Ratio 1.3 (1.1-1.8); Alkaline Phosphatase 85 U/L (38-126); Anion Gap 3.6 mEq/L (5-15); Aspartate Amino Transferase 111 U/L (17-59); Bilirubin,Total 1.8 mg/dl (0.2-1.3); Blood Urea Nitrogen 27 mg/dl (9-20); Calcium 8.6 mg/dl (8.4-10.2); Carbon Dioxide 30 mmol/L (22.0-30.0); Creatinine Clearance Estimated 47 mL/min (50-200); Estimated Glomerular Filt Rate 54 ml/min (>60); GFR (African American) 66 ML/MIN (>60); Globulin 2.8 g/dL (1.3-3.2); Glucose 120 mg/dl (74-100); Magnesium 2.2 mg/dl (1.6-2.3); Total Protein,Serum 6.5 g/dl (6.3-8.2)
[2024-03-12 08:32] LABS: Hematocrit 44.1 % (42.0-52.0); Mean Corpuscular Hemoglobin 34.7 pg (27.0-31.2); Mean Corpuscular Volume 98.7 fl (80-94); Red Blood Count 4.47 M/mm3 (4.60-6.20); White Blood Count 22.8 K/mm3 (4.8-10.8)
[2024-03-12 08:33] LABS: Basophils # 0.2 K/mm3 (0-0.2); Basophils % 0.7 % (0.1-2.0); Eosinophils # 0.2 K/mm3 (0.0-0.4); Eosinophils % 1.1 % (0.1-12.0); Lymphocytes # 5.5 K/mm3 (0.7-4.5); Lymphocytes % 24.2 % (10-50); MANUAL DIFFERENTIAL MANUAL DIFFERENTIAL (MANUAL DIFF); Mean Corpuscular HGB Conc 35.1 g/dL (31.8-35.4); Mean Platelet Volume 11.7 fl (7.4-10.4); Monocytes # 2.1 K/mm3 (0.1-1.0); Monocytes % 9.3 % (1.7-9.3); Neutrophils # 14.3 K/mm3 (1.8-7.8); Neutrophils % 62.8 % (37.0-80.0); Platelet Count 319 K/mm3 (142-424); Red Cell Distribution Width 13.9 % (11.5-17.5)
--- NOTE | 2024-03-12 08:40 | CT_ITS ---
PROCEDURE INFORMATION: Exam: CT Abdomen And Pelvis With Contrast Exam date and time: 03/12/2024 10:31 AM Age: 73 years old Clinical indication: Other: Worsening sepsis TECHNIQUE: Imaging protocol: Computed tomography of the abdomen and pelvis with contrast. Radiation optimization: All CT scans at this facility use at least one of these dose optimization techniques: automated exposure control; mA and/or kV adjustment per patient size (includes targeted exams where dose is matched to clinical indication); or iterative reconstruction. Contrast material: ISOVUE; Contrast volume: 75 ml; Contrast route: IV; COMPARISON: CT CHEST W CON 03/12/2024 10:31 AM FINDINGS: Liver: Normal. No mass. Gallbladder and biliary ducts: Large gallstone in the gallbladder lumen. No gallbladder wall thickening. Pancreas: Normal. No ductal dilation. Spleen: Previous splenectomy. Adrenal glands: Normal. No mass. Kidneys and ureters: Normal. No hydronephrosis. Stomach and bowel: Unremarkable. No obstruction. No mucosal thickening. Appendix: No evidence of appendicitis. Intraperitoneal space: Unremarkable. No free air. No significant fluid collection. Vasculature: Unremarkable. No abdominal aortic aneurysm. Lymph nodes: Unremarkable. No enlarged lymph nodes. Urinary bladder: Unremarkable as visualized. Reproductive: Unremarkable as visualized. Bones/joints: See Soft tissues finding. Soft tissues: Right hip prosthesis with atrophic changes of adjacent musculature. No acute fracture. Small fat containing umbilical hernia. Enlargement and heterogeneity within the left gluteus medius muscle, with scattered hyperdensities anteriorly. Question early phlegmon formation, best visualized on coronal imaging. No adjacent inflammatory changes. Other findings: Limited by patient body habitus. Right abdomen not fully included on examination. IMPRESSION: 1. Limited by patient body habitus. Right abdomen not fully included on examination. 2. Enlargement and heterogeneity within the left gluteus medius muscle, with scattered hyperdensities anteriorly. Question early phlegmon formation, best visualized on coronal imaging. No adjacent inflammatory changes. Clinical correlation recommended.
--- NOTE | 2024-03-12 08:40 | CT_ITS ---
PROCEDURE INFORMATION: Exam: CT Chest With Contrast; Diagnostic Exam date and time: 03/12/2024 10:31 AM Age: 73 years old Clinical indication: Other: Worsening sepsis TECHNIQUE: Imaging protocol: Diagnostic computed tomography of the chest with contrast. Radiation optimization: All CT scans at this facility use at least one of these dose optimization techniques: automated exposure control; mA and/or kV adjustment per patient size (includes targeted exams where dose is matched to clinical indication); or iterative reconstruction. Contrast material: ISOVUE; Contrast volume: 75 ml; Contrast route: IV; COMPARISON: CT ANGIO CHEST PE PROTOCOL 03/07/2024 3:17 PM FINDINGS: Lungs: Improving aeration in the left lower lobe. No new focal consolidation. Pleural spaces: Unremarkable. No pneumothorax. No pleural effusion. Heart: Unremarkable. No cardiomegaly. No pericardial effusion. Lymph nodes: Stable mediastinal and mild right hilar lymphadenopathy. Vasculature: Unremarkable. No aortic aneurysm. Bones/joints: Unremarkable. No acute fracture. Soft tissues: Gynecomastia. IMPRESSION: 1. Stable mediastinal and mild right hilar lymphadenopathy. 2. Improving aeration in the left lower lobe. No new focal consolidation.
[2024-03-12] MEDS: CARVEDILOL 3.125MG TABLET 3.125 MG PO ×2 (08:57→20:39)
[2024-03-12] MEDS: CITALOPRAM 20MG TABLET 20 MG PO (08:57)
[2024-03-12] MEDS: MEMANTINE 10MG TABLET 10 MG PO ×2 (08:57→20:39)
[2024-03-12] MEDS: BUMETANIDE 1 MG TABLET 2 MG PO (08:57)
[2024-03-12] MEDS: ENOXAPARIN 120MG/0.8ML SYRINGE 115 MG SUBCUT (08:57)
[2024-03-12] MEDS: AZELASTINE NASAL SPRAY 30ML BOTTLE NS ×2 (08:58→20:39)
[2024-03-12] MEDS: MEROPENEM 1 GM in 0.9 % SODIUM CHLORIDE 100 ML IV ×2 (09:00→20:39)
[2024-03-12 09:11] LABS: Hemoglobin 15.5 g/dL (14.1-18.0)
[2024-03-12] MEDS: DOXYCYCLINE HYCLATE 100 MG in 0.9 % SODIUM CHLORIDE 250 ML 166.667 MG IV ×2 (10:07→22:18)
[2024-03-12] MEDS: ACETAMINOPHEN 325MG TAB 650 MG PO ×2 (10:09→16:04)
[2024-03-12] MEDS: WARFARIN 5MG TABLET 7.5 MG PO (10:19)
[2024-03-12] MEDS: IOPAMIDOL-370 (76%);100ML BOTTLE 75 ML IV (10:33)
[2024-03-12] MEDS: SODIUM CHLORIDE 0.9% 10ML SYR (RAD ONLY) 10 ML IV (10:33)
[2024-03-12 10:46] LABS: Lymphocytes % 39 % (10-50); Monocytes % 5 % (2-9); Neutrophils % 56 % (42-76); Platelet Estimate Normal; RBC Morphology Normal; Total Cells Counted 100
[2024-03-12] MEDS: SODIUM CHLORIDE 3% 15ML NEB 3 ML IH (13:16)
[2024-03-12 13:34] VITALS: PULSE 96
[2024-03-12] MEDS: MORPHINE 2MG/ML SYRINGE 2 MG IV ×3 (13:40→22:32)
[2024-03-12 15:59] VITALS: BP 121/62; PULSE 97; RESP 21; TEMP 36.6; O2SAT 95
--- NOTE | 2024-03-12 16:41 | P.CONS_ITS ---
History of Present Illness *Admission Date: 03/07/24 *Reason for visit:: Possible left buttock/hip abscess *History of present illness: This is a 73-year-old gentleman seen in consultation from the primary service for evaluation regarding possible left hip/buttock abscess. He is currently being treated for pneumonia/RSV and was found to have worsening leukocytosis. Over the past 24 to 48 hours he has seemingly developed tenderness/swelling along the left hip/buttock. A CT scan revealed questionable phlegmonous changes. [facility] Disclaimer: The information contained in this section may have been updated after the patient was seen, as this information can be updated by other users. Medical History Acute and chronic respiratory failure with hypoxia SNHL (sensorineural hearing loss) ILD (interstitial lung disease) Sleep apnea Gall stone History of sleep apnea COPD exacerbation Allergic rhinitis Restrictive lung disease Allergic rhinitis History of smoking 30 or more pack years Dyspnea on exertion COPD (chronic obstructive pulmonary disease) Dyspnea on exertion Moderate aortic stenosis Mild aortic stenosis Pre-op evaluation HLD (hyperlipidemia) Pulmonary embolism CHF (congestive heart failure) Pulmonary hypertension HHD (hypertensive heart disease) CAD (coronary artery disease) DVT (deep venous thrombosis) Fatigue HTN (hypertension) Aortic valve stenosis Surgical History Status post arthroscopy of hip History of arthroscopic knee surgery Family History Other Stroke Social History Smoking Status: Former smoker tobacco type: cigarettes second hand exposure: No alcohol intake: never substance use type: denies use current occupational status: retired Travel in the last 8 weeks: Inside the [place] household members: significant other housing: house current occupational exposures/hazards: No caffeine: Yes Review of Systems Constitutional Constitutional: Denies weakness Eyes Eyes: Denies loss of vision ENT Ears, Nose, Mouth, and Throat: Denies vertigo *Cardiovascular Cardiovascular: Denies syncope *Neurologic Neurologic: Denies loss of vision, Denies syncope, Denies vertigo and Denies weakness Meds Home Medications and Allergies Home Medications ?Medication ?Instructions ?Recorded ?Confirmed ?Type warfarin 5 mg tablet 5 mg PO SUTUWETHSA 06/25/21 03/08/24 History warfarin 5 mg tablet 7.5 mg PO MOFR 12/01/21 03/08/24 History citalopram 20 mg tablet 20 mg PO DAILY dementia 30 days 12/22/22 03/08/24 Rx #90 tabs bumetanide 1 mg tablet 2 mg (2 x 1 mg) PO DAILY #180 tabs 04/13/23 03/08/24 Rx fluticasone fur. 100 mcg-umeclid 1 inh inhalation DAILY 90 days #90 10/07/23 03/08/24 Rx 62.5 mcg-vilant 25 mcg ea inhalat.powder (Trelegy Ellipta) levocetirizine 5 mg tablet 5 mg PO DAILY 10/11/23 03/08/24 History albuterol sulfate 90 mcg/actuation 1 inh inhalation QID PRN shortness 12/01/23 03/08/24 Rx aerosol inhaler of breath or wheezing 90 days #8.5 grams azelastine 137 mcg (0.1 %) nasal 1 spray intranasal BID 90 days #90 12/01/23 03/08/24 Rx spray mL fluticasone propionate 50 2 spray intranasal DAILY 90 days 12/01/23 03/08/24 Rx mcg/actuation nasal #16 grams spray,suspension (Flonase Allergy Relief) empagliflozin 10 mg tablet 10 mg PO DAILY 12/20/23 03/08/24 History (Jardiance) ergocalciferol (vitamin D2) 1,250 1,250 mcg PO Q2W 12/20/23 03/08/24 History mcg (50,000 unit) capsule memantine 10 mg tablet 10 mg PO BID dementia 30 days #60 12/29/23 03/08/24 Rx tabs thiamine HCl (vitamin B1) 100 mg 100 mg PO DAILY #30 tabs 12/29/23 03/08/24 Rx tablet carvedilol 3.125 mg tablet 3.125 mg PO BID 01/10/24 03/08/24 History enoxaparin 120 mg/0.8 mL 120 mg (0.8 mL) SQ Q12H #16 mL 02/09/24 03/08/24 Rx subcutaneous syringe benzonatate 100 mg capsule 100 mg PO BID PRN cough #20 caps 03/02/24 03/08/24 Rx atorvastatin 80 mg tablet 80 mg PO DAILY 03/08/24 03/08/24 History levothyroxine 50 mcg tablet 50 mcg PO DAILY 03/08/24 03/08/24 History levofloxacin 750 mg tablet 750 mg PO DAILY 3 days #3 tabs 03/10/24 Rx New Prescriptions to Start Prescriptions: levofloxacin Salbador Townsend Allergies Allergy/AdvReac Type Severity Reaction Status Date / Time No Known Allergies Allergy Verified 03/02/24 11:09 Exam (Inpt) Vital signs and Labs for Last 24 Hours: Temp Pulse Resp BP Pulse Ox O2 Del Method O2 Flow Rate 97.8 F 97 H 21 121/62 95 Nasal Cannula 1 03/12/24 15:59 03/12/24 15:59 03/12/24 15:59 03/12/24 15:59 03/12/24 15:59 03/12/24 15:59 03/12/24 15:59 Laboratory Results - last 24 hr 03/11/24 15:15: Urine Color Yellow, Urine Appearance Clear, Urine pH 6.0, Ur Specific [place] 1.010, Urine Protein Negative, Urine Glucose (UA) 3+, Urine Ketones Negative, Urine Blood Negative, Urine Nitrate Negative, Urine Bilirubin Negative, Urine Urobilinogen 0.2, Ur Leukocyte Esterase Negative, Urine RBC None, Urine WBC 3-5 03/12/24 07:15: WBC 22.8 H*, RBC 4.47 L, Hgb 15.5 D, Hct 44.1, MCV 98.7 H, MCH 34.7 H, MCHC 35.1, RDW 13.9, Plt Count 319, MPV 11.7 H, Neut % (Auto) 62.8, Lymph % (Auto) 24.2, [place] % (Auto) 9.3, Eos % (Auto) 1.1, Baso % (Auto) 0.7, N eut # (Auto) 14.3 H, Lymph # (Auto) 5.5 H, [place] # (Auto) 2.1 H, Eos # (Auto) 0.2, Baso # (Auto) 0.2, Total Counted 100, Neutrophils % (Manual) 56, Lymphocytes % (Manual) 39, Monocytes % (Manual) 5, Platelet Estimate Normal, RBC Morphology Normal, PT 22.3 H, INR 2.15 H, Sodium 129 L, Potassium 3.6, Chloride 99, Carbon Dioxide 30, Anion Gap 3.6 L, BUN 27 H, Creatinine 1.30 H, Estimated Creat Clear 47, Estimated GFR 54 L, Est GFR ( Amer) 66, Glucose 120 H, Calcium 8.6, Magnesium 2.2, Total Bilirubin 1.8 H, AST 111 H D, ALT 61, Alkaline Phosphatase 85, Total Protein 6.5, Albumin 3.7, Globulin 2.8, Albumin/Globulin Ratio 1.3 I & O for Labs for Last 24 Hours: Intake & Output 03/10/24 03/11/24 03/12/24 03/13/24 11:59 11:59 11:59 11:59 Intake Total 1440 / 1440 1335 / 1335 3188 / 3188 300 / 300 Output Total 1300 / 1300 2550 / 2550 1800 / 1950 750 / 750 Balance 140 / 140 -1215 / -1215 1388 / 1238 -450 / -450 Weight 257 lb 1.6 oz 256 lb 1.6 oz 257 lb 4.8 oz Microbiology Reports for the Last 24 Hours: Microbiology 03/11/24 16:00 Blood Blood Culture - Preliminary NO GROWTH AFTER 24 HOURS 03/11/24 15:55 Blood Blood Culture - Preliminary NO GROWTH AFTER 24 HOURS 03/07/24 14:13 Blood Blood Culture - Final NO GROWTH AFTER 5 DAYS 03/07/24 14:09 Blood Blood Culture - Final NO GROWTH AFTER 5 DAYS Constitutional: chronically ill appearing Cardiac: Absent Tachycardia Comment:: No obvious cellulitis along left hip/buttock region. Medial buttock/perianal mild petechial changes noted. Overall soft tissue swelling and tenderness throughout this region noted. Results Labs 03/12/24 07:15 03/12/24 07:15 Labs: Laboratory Results - last 24 hr 03/11/24 15:15: Urine Color Yellow, Urine Appearance Clear, Urine pH 6.0, Ur Specific [place] 1.010, Urine Protein Negative, Urine Glucose (UA) 3+, Urine Ketones Negative, Urine Blood Negative, Urine Nitrate Negative, Urine Bilirubin Negative, Urine Urobilinogen 0.2, Ur Leukocyte Esterase Negative, Urine RBC None, Urine WBC 3-5 03/12/24 07:15: WBC 22.8 H*, RBC 4.47 L, Hgb 15.5 D, Hct 44.1, MCV 98.7 H, MCH 34.7 H, MCHC 35.1, RDW 13.9, Plt Count 319, MPV 11.7 H, Neut % (Auto) 62.8, Lymph % (Auto) 24.2, [place] % (Auto) 9.3, Eos % (Auto) 1.1, Baso % (Auto) 0.7, N eut # (Auto) 14.3 H, Lymph # (Auto) 5.5 H, [place] # (Auto) 2.1 H, Eos # (Auto) 0.2, Baso # (Auto) 0.2, Total Counted 100, Neutrophils % (Manual) 56, Lymphocytes % (Manual) 39, Monocytes % (Manual) 5, Platelet Estimate Normal, RBC Morphology Normal, PT 22.3 H, INR 2.15 H, Sodium 129 L, Potassium 3.6, Chloride 99, Carbon Dioxide 30, Anion Gap 3.6 L, BUN 27 H, Creatinine 1.30 H, Estimated Creat Clear 47, Estimated GFR 54 L, Est GFR ( Amer) 66, Glucose 120 H, Calcium 8.6, Magnesium 2.2, Total Bilirubin 1.8 H, AST 111 H D, ALT 61, Alkaline Phosphatase 85, Total Protein 6.5, Albumin 3.7, Globulin 2.8, Albumin/Globulin Ratio 1.3 Assessment and Plan *Assessment and plan (1) Soft tissue swelling: Status: Acute Category: Medical Code(s): R22.9 - Localized swelling, mass and lump, unspecified Plan: Left buttock/hip soft tissue swelling without obvious cellulitis. Radiographic evidence of possible phlegmonous changes noted. Overall findings remain equivocal with regard to this diagnosis as a source of the patient's leukocytosis/sepsis. Continue broad spectrum antibiotic coverage Repeat CBC Potential incision and drainage tomorrow morning pending repeat physical exam and follow-up labs
[2024-03-12] MEDS: VANCOMYCIN HCL 2,000 MG in 0.9 % SODIUM CHLORIDE 250 ML 125 MG IV (17:42)
[2024-03-12] MEDS: HYDROMORPHONE 2MG/ML SYRINGE 2 MG IV ×2 (18:21→23:25)
--- NOTE | 2024-03-12 18:26 | PC.NURSE ---
pt lying supine in bed. a&ox4. pt has complained of pain throughout the entire shift. pt has been treated with morphine and tylenol for majority of the shift with little relief. new orders for lidocaine patch, dilaudid and increased dosage of morphine. orders to be carried out. abscess to left hip/buttocks noted. general surgery consulted and possible surgery tomorrow. consent signed and on the chart. pt has had decreased appetite. uses CPAP @ night. call light within reach.
[2024-03-12] MEDS: LIDOCAINE 5% TRANSDERMAL PATCH 1 EACH TP (18:37)
[2024-03-12 20:00] VITALS: BP 137/74; PULSE 112; RESP 19; TEMP 36.5; O2SAT 94
[2024-03-12 20:13] LABS: Hematocrit 36.7 % (42.0-52.0); Mean Corpuscular HGB Conc 34.9 g/dL (31.8-35.4); Mean Corpuscular Hemoglobin 34.5 pg (27.0-31.2); Mean Corpuscular Volume 98.9 fl (80-94); Red Blood Count 3.71 M/mm3 (4.60-6.20); Red Cell Distribution Width 13.8 % (11.5-17.5); White Blood Count 26.3 K/mm3 (4.8-10.8)
[2024-03-12 20:14] LABS: Basophils # 0.2 K/mm3 (0-0.2); Basophils % 0.8 % (0.1-2.0); Eosinophils # 0.1 K/mm3 (0.0-0.4); Eosinophils % 0.3 % (0.1-12.0); Lymphocytes % 15.3 % (10-50); Mean Platelet Volume 12.1 fl (7.4-10.4); Monocytes # 2.2 K/mm3 (0.1-1.0); Monocytes % 8.4 % (1.7-9.3); Neutrophils # 19.2 K/mm3 (1.8-7.8); Neutrophils % 72.8 % (37.0-80.0); Platelet Count 275 K/mm3 (142-424)
[2024-03-12 20:16] LABS: Hemoglobin 12.8 g/dL (14.1-18.0)
[2024-03-12 20:18] LABS: MANUAL DIFFERENTIAL MANUAL DIFFERENTIAL (MANUAL DIFF)
--- NOTE | 2024-03-12 21:44 | PC.NURSE ---
Patient's family member (Zuly St. Aguilar) called to check in on the patient at this time.
[2024-03-12 21:52] LABS: Lymphocytes % 20 % (10-50); Monocytes % 5 % (2-9); Neutrophils % 75 % (42-76); Total Cells Counted 100
--- NOTE | 2024-03-12 21:52 | PC.NURSE ---
Addendum entered by Carol Fischer RN 03/12/24 22:30: An additional new 20G IV was inserted into the right AC by Abdiaziz Griffiths RN. Addendum entered by Carol Fischer RN 03/12/24 22:17: At this time, a new 18G IV was inserted into the left AC by Abdiaziz Griffiths RN. Original Note: Patient's IV site (20G in left hand) infiltrated at this time after meropenem infusion. IV site removed. Patient is agreeable to start another IV line. Doxycycline infusion will be started once IV access is regained.
[2024-03-12 21:53] LABS: Platelet Estimate Normal; RBC Morphology Normal
[2024-03-12 21:54] LABS: Giant Platelets 2+
--- NOTE | 2024-03-12 21:57 | P.PN_ITS ---
Subjective *Date: 03/12/24 *Time: 21:57 Exam Data for Last 24 hours Vital signs and Labs for Last 24 Hours: Temp Pulse Resp BP Pulse Ox O2 Del Method O2 Flow Rate 97.7 F 112 H 19 137/74 94 L Nasal Cannula 1 03/12/24 20:00 03/12/24 20:00 03/12/24 20:00 03/12/24 20:00 03/12/24 20:00 03/12/24 20:00 03/12/24 20:00 Laboratory Results - last 24 hr 03/12/24 07:15: WBC 22.8 H*, RBC 4.47 L, Hgb 15.5 D, Hct 44.1, MCV 98.7 H, MCH 34.7 H, MCHC 35.1, RDW 13.9, Plt Count 319, MPV 11.7 H, Neut % (Auto) 62.8, Lymph % (Auto) 24.2, [place] % (Auto) 9.3, Eos % (Auto) 1.1, Baso % (Auto) 0.7, Neut # (Auto) 14.3 H, Lymph # (Auto) 5.5 H, [place] # (Auto) 2.1 H, Eos # (Auto) 0.2, Baso # (Auto) 0.2, Total Counted 100, Neutrophils % (Manual) 56, Lymphocytes % (Manual) 39, Monocytes % (Manual) 5, Platelet Estimate Normal, RBC Morphology Normal, PT 22.3 H, INR 2.15 H, Sodium 129 L, Potassium 3.6, Chloride 99, Carbon Dioxide 30, Anion Gap 3.6 L, BUN 27 H, Creatinine 1.30 H, Estimated Creat Clear 47, Estimated GFR 54 L, Est GFR ( Amer) 66, Glucose 120 H, Calcium 8.6, Magnesium 2.2, Total Bilirubin 1.8 H, AST 111 H D, ALT 61, Alkaline Phosphatase 85, Total Protein 6.5, Albumin 3.7, Globulin 2.8, Albumin/Globulin Ratio 1.3 03/12/24 20:00: WBC 26.3 H*, RBC 3.71 L, Hgb 12.8 L D, Hct 36.7 L, MCV 98.9 H, MCH 34.5 H, MCHC 34.9, RDW 13.8, Plt Count 275, MPV 12.1 H, Neut % (Auto) 72.8, Lymph % (Auto) 15.3, [place] % (Auto) 8.4, Eos % (Auto) 0.3, Baso % (Auto) 0.8, Neut # (Auto) 19.2 H, Lymph # (Auto) 4.0, [place] # (Auto) 2.2 H, Eos # (Auto) 0.1, Baso # (Auto) 0.2, Total Counted 100, Neutrophils % (Manual) 75, Lymphocytes % (Manual) 20, Monocytes % (Manual) 5, Platelet Estimate Normal, Giant Platelets 2+, RBC Morphology Normal I & O for Last 24 hours: Intake & Output 03/09/24 03/10/24 03/11/24 03/12/24 23:59 23:59 23:59 23:59 Intake Total 1350 / 1590 1500 / 1500 1295 / 2757 2628 / 2628 Output Total 3575 / 3575 2350 / 2350 2100 / 2100 1250 / 1250 Balance -2225 / -1985 -850 / -850 -805 / 657 1378 / 1378 Weight 117.14 kg 116.6 kg 116.165 kg 116.709 kg Microbiology Reports for the Last 24 Hours: Microbiology 03/11/24 16:00 Blood Blood Culture - Preliminary NO GROWTH AFTER 24 HOURS 03/11/24 15:55 Blood Blood Culture - Preliminary NO GROWTH AFTER 24 HOURS 03/07/24 14:13 Blood Blood Culture - Final NO GROWTH AFTER 5 DAYS 03/07/24 14:09 Blood Blood Culture - Final NO GROWTH AFTER 5 DAYS Constitutional Constitutional: no acute distress, obese and cooperative *Routine HEENT Exam Eye: Present PERRL *Routine Respiratory Exam Respiratory: Present CTA bilaterally; Absent accessory muscle use, wheezes or crackles Comments: Mild diffuse wheezing and productive cough *Routine Cardiovascular Exam Cardiovascular: Present RRR, Normal S1 and Normal S2; Absent murmur, gallop or rubs *Routine Abdominal Exam Abdominal: Present soft and distended; Absent tenderness *Routine Extremities Exam Extremities: Present pulses intact; Absent cyanosis or edema *Routine Skin Exam Skin: Present intact; Absent erythema or wounds *Routine Neurological Exam Neurological: Present alert and oriented X3 Routine Psychiatric Exam Psychiatric: Present cooperative Assessment and Plan *Assessment and plan (1) Sepsis: Status: Acute Category: Medical Code(s): A41.9 - Sepsis, unspecified organism (2) CHF exacerbation: Status: Acute Category: Medical Code(s): I50.9 - Heart failure, unspecified (3) Acute hypoxemic respiratory failure: Status: Acute Category: Medical Code(s): J96.01 - Acute respiratory failure with hypoxia (4) RSV (respiratory syncytial virus pneumonia): Status: Acute Category: Medical Code(s): J12.1 - Respiratory syncytial virus pneumonia (5) NSTEMI (non-ST elevated myocardial infarction): Status: Acute Category: Medical Code(s): I21.4 - Non-ST elevation (NSTEMI) myocardial infarction (6) Neutropenia: Status: Acute Category: Medical Code(s): D70.9 - Neutropenia, unspecified (7) MIGUEL A (acute kidney injury): Status: Acute Category: Medical Code(s): N17.9 - Acute kidney failure, unspecified (8) Chronic respiratory failure: Problem Comment: On Astral and O2 at night Status: Chronic Qualifiers: Respiratory failure complication: hypoxia Qualified Code(s): J96.11 - Chronic respiratory failure with hypoxia Category: Medical Code(s): J96.10 - Chronic respiratory failure, unspecified whether with hypoxia or hypercapnia (9) ISAAC (obstructive sleep apnea): Problem Comment: Stable Status: Chronic Category: Medical Code(s): G47.33 - Obstructive sleep apnea (adult) (pediatric) (10) Memory loss or impairment: Problem Comment: He was started on Namenda by Dr. Hi, previous PCP. 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 06/2023 brain MRI, B12, folate, TSH: No significant abnormalities. 12/29/2023: Stable Status: Chronic Category: Medical Code(s): R41.3 - Other amnesia (11) Obesity: Status: Acute Qualifiers: Obesity type: due to excess calories Obesity classification: adult class 3 (BMI >= 40) Serious obesity comorbidity presence: with serious comorbidity Body mass index: BMI 40.0-44.9 Qualified Code(s): E66.01 - Morbid (severe) obesity due to excess calories; Z68.41 - Body mass index [BMI] 40.0- 44.9, adult Category: Medical Code(s): E66.9 - Obesity, unspecified (12) CKD (chronic kidney disease) stage 3, GFR 30-59 ml/min: Status: Chronic Qualifiers: Chronic kidney disease stage 3 subtype: stage 3a (GFR 45-59) Qualified Code(s): N18.31 - Chronic kidney disease, stage 3a Category: Medical Code(s): N18.30 - Chronic kidney disease, stage 3 unspecified (13) COPD exacerbation: Status: Chronic Category: Medical Code(s): J44.1 - Chronic obstructive pulmonary disease with (acute) exacerbation (14) DVT (deep venous thrombosis): Status: Resolved Category: Medical Code(s): I82.409 - Acute embolism and thrombosis of unspecified deep veins of unspecified lower extremity (15) Aortic valve stenosis: Status: Chronic Qualifiers: Cardiac valve disease etiology: etiology unspecified Qualified Code(s): I35.0 - Nonrheumatic aortic (valve) stenosis Category: Medical Code(s): I35.0 - Nonrheumatic aortic (valve) stenosis (16) History of pulmonary embolism: Status: Chronic Category: Medical Code(s): Z86.711 - Personal history of pulmonary embolism (17) Pulmonary hypertension: Status: Chronic Category: Medical Code(s): I27.20 - Pulmonary hypertension, unspecified Plan Reji Carrillo is a 73-year-old male with multiple comorbidities. Presents with worsening shortness of breath over the past 3 to 4 days. Failed outpatient therapy with antibiotics. Workup in the ER concerning for pneumonia, acute on chronic hypoxemic respiratory failure, RSV, CHF exacerbation. Case discussed with ER physician, request admission for further management. I agreed to admit for further treatment including diuresis and antibiotic therapy. Cardiology and pulmonology seeing patient today. Continues to require inpatient management. Showing some improvement with symptomatic treatment. Problems addressed as follows: #Acute on chronic hypoxic respiratory failure #Left lower lobe pneumonia #RSV - CTA does show LLL pneumonia. - WBC wrosening to 19 today from 17. - Started Vancomycin, continue levaquin. - Continue CPAP at night or while asleep. Continue Trelegy 100 inhaler along with DuoNebs every 6 hours. - Continue supplemental oxygen as needed for goal sats greater than 90%. On 2 L on rounds. Wears 3-1/2 at night through his CPAP. Normally on room air at home during the day. No need for steroids. Acute on chronic heart failure with preserved ejection fraction NSTEMI type 2 -BNP of 1000 on admission. No chest pain. EKG with no ischemic changes. Likely supply/demand mismatch in the setting of hypoxia and pneumonia. - Cardiology evaluated patient today, discussed case, recommend continuing carvedilol, statin, warfarin. Repeat echo. - Continue carvedilol 3.125 mg twice daily, continue Jardiance 10 mg daily - Continue Bumex 2 mg IV twice daily, Renal function stable Cr 1.3. - Follow-up ECHO Continue levothyroxine 50 g daily for hypothyroid Mild cognitive impairment: Continues citalopram 20 mg daily, memantine 10 mg twice daily. MIGUEL A on CKD. BUN 29, creatinine 1.3. Potassium 3.9, magnesium 2.5. Baseline appears to be 1-1.1. Caution with nephrotoxins. Repeat CBC, CMP, magnesium ordered for the morning. 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 Subtherapeutic with INR of 1.8. Continue Lovenox 1 mg/kg subcu twice daily. Continue warfarin 7.5 mg daily. Repeat INR ordered for the morning. Full code Cardiac diet Warfarin, INR pending in the morning. INR 1.5 on admission
--- NOTE | 2024-03-12 22:00 | P.PN_ITS ---
Subjective *Date: 03/12/24 *Time: 22:00 Interval history: Complained of left hip pain, exam and CT suggests underlying phlegmon/abscess. General surgery tentatively planning for I&D tomorrow, npo at midnight. Exam Data for Last 24 hours Vital signs and Labs for Last 24 Hours: Temp Pulse Resp BP Pulse Ox O2 Del Method O2 Flow Rate 97.7 F 112 H 19 137/74 94 L Nasal Cannula 1 03/12/24 20:00 03/12/24 20:00 03/12/24 20:00 03/12/24 20:00 03/12/24 20:00 03/12/24 20:00 03/12/24 20:00 Laboratory Results - last 24 hr 03/12/24 07:15: WBC 22.8 H*, RBC 4.47 L, Hgb 15.5 D, Hct 44.1, MCV 98.7 H, MCH 34.7 H, MCHC 35.1, RDW 13.9, Plt Count 319, MPV 11.7 H, Neut % (Auto) 62.8, Lymph % (Auto) 24.2, [place] % (Auto) 9.3, Eos % (Auto) 1.1, Baso % (Auto) 0.7, Neut # (Auto) 14.3 H, Lymph # (Auto) 5.5 H, [place] # (Auto) 2.1 H, Eos # (Auto) 0.2, Baso # (Auto) 0.2, Total Counted 100, Neutrophils % (Manual) 56, Lymph[place] % (Manual) 39, Monocytes % (Manual) 5, Platelet Estimate Normal, RBC Morphology Normal, PT 22.3 H, INR 2.15 H, Sodium 129 L, Potassium 3.6, Chloride 99, Carbon Dioxide 30, Anion Gap 3.6 L, BUN 27 H, Creatinine 1.30 H, Estimated Creat Clear 47, Estimated GFR 54 L, Est GFR ( Amer) 66, Glucose 120 H, Calcium 8.6, Magnesium 2.2, Total Bilirubin 1.8 H, AST 111 H D, ALT 61, Alkaline Phosphatase 85, Total Protein 6.5, Albumin 3.7, Globulin 2.8, Albumin/Globulin Ratio 1.3 03/12/24 20:00: WBC 26.3 H*, RBC 3.71 L, Hgb 12.8 L D, Hct 36.7 L, MCV 98.9 H, MCH 34.5 H, MCHC 34.9, RDW 13.8, Plt Count 275, MPV 12.1 H, Neut % (Auto) 72.8, Lymph % (Auto) 15.3, [place] % (Auto) 8.4, Eos % (Auto) 0.3, Baso % (Auto) 0.8, Neut # (Auto) 19.2 H, Lymph # (Auto) 4.0, [place] # (Auto) 2.2 H, Eos # (Auto) 0.1, Baso # (Auto) 0.2, Total Counted 100, Neutrophils % (Manual) 75, Lymphocytes % (Manual) 20, Monocytes % (Manual) 5, Platelet Estimate Normal, Giant Platelets 2+, RBC Morphology Normal I & O for Last 24 hours: Intake & Output 03/09/24 03/10/24 03/11/24 03/12/24 23:59 23:59 23:59 23:59 Intake Total 1350 / 1590 1500 / 1500 1295 / 2757 2628 / 2628 Output Total 3575 / 3575 2350 / 2350 2100 / 2100 1250 / 1250 Balance -2225 / -1985 -850 / -850 -805 / 657 1378 / 1378 Weight 117.14 kg 116.6 kg 116.165 kg 116.709 kg Microbiology Reports for the Last 24 Hours: Microbiology 03/11/24 16:00 Blood Blood Culture - Preliminary NO GROWTH AFTER 24 HOURS 03/11/24 15:55 Blood Blood Culture - Preliminary NO GROWTH AFTER 24 HOURS 03/07/24 14:13 Blood Blood Culture - Final NO GROWTH AFTER 5 DAYS 03/07/24 14:09 Blood Blood Culture - Final NO GROWTH AFTER 5 DAYS Constitutional Constitutional: no acute distress, obese and cooperative *Routine HEENT Exam Eye: Present PERRL *Routine Respiratory Exam Respiratory: Present CTA bilaterally; Absent accessory muscle use, wheezes or crackles Comments: Mild diffuse wheezing and productive cough *Routine Cardiovascular Exam Cardiovascular: Present RRR, Normal S1 and Normal S2; Absent murmur, gallop or rubs *Routine Abdominal Exam Abdominal: Present soft and distended; Absent tenderness *Routine Extremities Exam Extremities: Present pulses intact; Absent cyanosis or edema Comments: Swelling and induration over left lateral buttock with tenderness, without overlying erythema. *Routine Skin Exam Skin: Present intact; Absent erythema or wounds *Routine Neurological Exam Neurological: Present alert and oriented X3 Routine Psychiatric Exam Psychiatric: Present cooperative Assessment and Plan *Assessment and plan (1) Sepsis: Status: Acute Category: Medical Code(s): A41.9 - Sepsis, unspecified organism (2) CHF exacerbation: Status: Acute Category: Medical Code(s): I50.9 - Heart failure, unspecified (3) Acute hypoxemic respiratory failure: Status: Acute Category: Medical Code(s): J96.01 - Acute respiratory failure with hypoxia (4) RSV (respiratory syncytial virus pneumonia): Status: Acute Category: Medical Code(s): J12.1 - Respiratory syncytial virus pneumonia (5) NSTEMI (non-ST elevated myocardial infarction): Status: Acute Category: Medical Code(s): I21.4 - Non-ST elevation (NSTEMI) myocardial infarction (6) Neutropenia: Status: Acute Category: Medical Code(s): D70.9 - Neutropenia, unspecified (7) MIGUEL A (acute kidney injury): Status: Acute Category: Medical Code(s): N17.9 - Acute kidney failure, unspecified (8) Chronic respiratory failure: Problem Comment: On Astral and O2 at night Status: Chronic Qualifiers: Respiratory failure complication: hypoxia Qualified Code(s): J96.11 - Chronic respiratory failure with hypoxia Category: Medical Code(s): J96.10 - Chronic respiratory failure, unspecified whether with hypoxia or hyp ercapnia (9) ISAAC (obstructive sleep apnea): Problem Comment: Stable Status: Chronic Category: Medical Code(s): G47.33 - Obstructive sleep apnea (adult) (pediatric) (10) Memory loss or impairment: Problem Comment: He was started on Namenda by Dr. Hi, previous PCP. 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 06/2023 brain MRI, B12, folate, TSH: No significant abnormalities. 12/29/2023: Stable Status: Chronic Category: Medical Code(s): R41.3 - Other amnesia (11) Obesity: Status: Acute Qualifiers: Obesity type: due to excess calories Obesity classification: adult class 3 (BMI >= 40) Serious obesity comorbidity presence: with serious comorbidity Body mass index: BMI 40.0-44.9 Qualified Code(s): E66.01 - Morbid (severe) obesity due to excess calories; Z68.41 - Body mass index [BMI] 40.0- 44.9, adult Category: Medical Code(s): E66.9 - Obesity, unspecified (12) CKD (chronic kidney disease) stage 3, GFR 30-59 ml/min: Status: Chronic Qualifiers: Chronic kidney disease stage 3 subtype: stage 3a (GFR 45-59) Qualified Code(s): N18.31 - Chronic kidney disease, stage 3a Category: Medical Code(s): N18.30 - Chronic kidney disease, stage 3 unspecified (13) COPD exacerbation: Status: Chronic Category: Medical Code(s): J44.1 - Chronic obstructive pulmonary disease with (acute) exacerbation (14) DVT (deep venous thrombosis): Status: Resolved Category: Medical Code(s): I82.409 - Acute embolism and thrombosis of unspecified deep veins of unspecified lower extremity (15) Aortic valve stenosis: Status: Chronic Qualifiers: Cardiac valve disease etiology: etiology unspecified Qualified Code(s): I35.0 - Nonrheumatic aortic (valve) stenosis Category: Medical Code(s): I35.0 - Nonrheumatic aortic (valve) stenosis (16) History of pulmonary embolism: Status: Chronic Category: Medical Code(s): Z86.711 - Personal history of pulmonary embolism (17) Pulmonary hypertension: Status: Chronic Category: Medical Code(s): I27.20 - Pulmonary hypertension, unspecified Plan Reji Carrillo is a 73-year-old male with multiple comorbidities. Presents with worsening shortness of breath over the past 3 to 4 days. Failed outpatient therapy with antibiotics. Workup in the ER concerning for pneumonia, acute on chronic hypoxemic respiratory failure, RSV, CHF exacerbation. Case discussed with ER physician, request admission for further management. #Sepsis #Suspected left gluteal phlegmon/abscess - WBC worsened to 20.3 today. - Patient complained of left hip today, and more difficulty walking. - Exam shows left lateral swelling with induration of left buttock with tenderness, but no overlying cellulitis. - CT abdomen/pelvis suggested phlegmon. - Started meropenem. - General surgery consulted, planning for I&D tomorrow if condition not responsive to broadened antibiotics as above. - Continue to monitor. - NPO at midnight. #Acute on chronic hypoxic respiratory failure #Left lower lobe pneumonia #RSV - CTA does show LLL pneumonia. - Continue CPAP at night or while asleep. Continue Trelegy 100 inhaler along with DuoNebs every 6 hours. - Continue supplemental oxygen as needed for goal sats greater than 90%. On 2 L on rounds. Wears 3-1/2 at night through his CPAP. Normally on room air at home during the day. No need for steroids. - CT chest shows improving pneumonia. #Acute on chronic heart failure with preserved ejection fraction #NSTEMI type 2 - BNP of 1000 on admission. No chest pain. EKG with no ischemic changes. Likely supply/demand mismatch in the setting of hypoxia and pneumonia. - Cardiology evaluated patient today, discussed case, recommend continuing carvedilol, statin, warfarin. Repeat echo. - Continue carvedilol 3.125 mg twice daily, continue Jardiance 10 mg daily - Transitioned to PO Bumex 2mg BID. - ECHO shows normal biventricular function. #Chronic DVT/PE #Subtherapeutic INR, resolved - On warfarin therapy daily. Intial Subtherapeutic with INR of 1.8. - Warfain increased to 10mg nightly. - INR 2.15 today. Discontinue Lovenox bridge. Continue levothyroxine 50 g daily for hypothyroid Mild cognitive impairment: Continues citalopram 20 mg daily, memantine 10 mg twice daily. Full code Cardiac diet Warfarin
--- NOTE | 2024-03-12 23:57 | PC.NURSE ---
Late Entry (for interval 21:00 to 23:00): Patient's mobility was noticed to have declined compared with the previous shifts. During a transfer to the chair/back to bed due to complications with pain and a bed change, patient reported not being able to bear weight on his left leg. He has been complaining of increased, consistent pain since the start of the shift; pain medication is being administered per MAR. Patient noticed to be a max-assist (greater than x2) during transfers with the available staff ability.
[2024-03-13] VITALS (23 sets, daily range): BP systolic 112–155; BP diastolic 58–93; PULSE 90–110; RESP 16–21; TEMP 36.5–36.8; O2SAT 90–99; BMI 40.2
--- NOTE | 2024-03-13 04:25 | PC.NURSE ---
Addendum entered by Carol Fischer RN 03/13/24 05:03: Blood pressures and heart rate remain elevated. Oxygen saturations remain 90% and greater. Original Note: Patient is alert and oriented x4. Patient was observed to have eyes closed, respirations even and unlabored, and no apparent distress throughout the majority of the night. Patient had 1 L of oxygen via nasal cannula in place yesterday evening and favored his CPAP during sleep. Purse-lipped breathing is still noted during wakeful periods. Patient has complained of significant pain in his lower back and left hip, as well as complaints of decreased mobility and difficulty bearing weight on his left leg this shift. Patient has needed vast assist from staff to sit up in bed/pivot this shift. Morphine and dilautid pain medications were administered per MAR this shift. Pulses were present in bilateral lower extremities; patient did complain of numbness in his left leg when in a dependent position. Patient's WBC remains very elevated (26.3; drawn on 03/12, resulted 20:00). Patient has remained NPO since midnight pending general surgery consult. Upon auscultation of his lungs, sounds were free of wheezing this shift, compared with previous shifts, but has diminished air movement. Patient continues to have a dry, intermittent cough. Abdomen is large and soft with palpation. Umbilical hernia unchanged. Scheduled medications were administered per MAR. Lovenox discontinued. At this time, the patient is resting supine in bed without further complaints. Call light within reach.
[2024-03-13] MEDS: LEVOTHYROXINE 50MCG (0.05MG) TAB 50 MCG PO (06:12)
--- NOTE | 2024-03-13 06:20 | P.PN_ITS ---
Subjective Patient reports: no new complaints and still having pain Exam Data for Last 24 hours Vital signs and Labs for Last 24 Hours: Temp Pulse Resp BP Pulse Ox O2 Del Method O2 Flow Rate 97.7 F 102 H 20 153/83 H 90 L CPAP 1 03/13/24 04:00 03/13/24 04:00 03/13/24 04:00 03/13/24 04:00 03/13/24 04:00 03/13/24 05:00 03/12/24 21:00 Laboratory Results - last 24 hr 03/12/24 07:15: WBC 22.8 H*, RBC 4.47 L, Hgb 15.5 D, Hct 44.1, MCV 98.7 H, MCH 34.7 H, MCHC 35.1, RDW 13.9, Plt Count 319, MPV 11.7 H, Neut % (Auto) 62.8, Lymph % (Auto) 24.2, [place] % (Auto) 9.3, Eos % (Auto) 1.1, Baso % (Auto) 0.7, Neut # (Auto) 14.3 H, Lymph # (Auto) 5.5 H, [place] # (Auto) 2.1 H, Eos # (Auto) 0.2, Baso # (Auto) 0.2, Total Counted 100, Neutrophils % (Manual) 56, Lymphocytes % (Manual) 39, Monocytes % (Manual) 5, Platelet Estimate Normal, RBC Morphology Normal, PT 22.3 H, INR 2.15 H, Sodium 129 L, Potassium 3.6, Chloride 99, Carbon Dioxide 30, Anion Gap 3.6 L, BUN 27 H, Creatinine 1.30 H, Estimated Creat Clear 47, Estimated GFR 54 L, Est GFR ( Amer) 66, Glucose 120 H, Calcium 8.6, Magnesium 2.2, Total Bilirubin 1.8 H, AST 111 H D, ALT 61, Alkaline Phosphatase 85, Total Protein 6.5, Albumin 3.7, Globulin 2.8, Albumin/Globulin Ratio 1.3 03/12/24 20:00: WBC 26.3 H*, RBC 3.71 L, Hgb 12.8 L D, Hct 36.7 L, MCV 98.9 H, MCH 34.5 H, MCHC 34.9, RDW 13.8, Plt Count 275, MPV 12.1 H, Neut % (Auto) 72.8, Lymph % (Auto) 15.3, [place] % (Auto) 8.4, Eos % (Auto) 0.3, Baso % (Auto) 0.8, Neut # (Auto) 19.2 H, Lymph # (Auto) 4.0, [place] # (Auto) 2.2 H, Eos # (Auto) 0.1, Baso # (Auto) 0.2, Total Counted 100, Neutrophils % (Manual) 75, Lymphocytes % (Manual) 20, Monocytes % (Manual) 5, Platelet Estimate Normal, Giant Platelets 2+, RBC Morphology Normal I & O for Last 24 hours: Intake & Output 03/10/24 03/11/24 03/12/24 03/13/24 11:59 11:59 11:59 11:59 Intake Total 1440 / 1440 1335 / 1335 3188 / 3188 1631 / 1631 Output Total 1300 / 1300 2550 / 2550 1800 / 1950 900 / 900 Balance 140 / 140 -1215 / -1215 1388 / 1238 731 / 731 Weight 257 lb 1.6 oz 256 lb 1.6 oz 257 lb 4.8 oz 256 lb 6.4 oz Microbiology Reports for the Last 24 Hours: Microbiology 03/11/24 16:00 Blood Blood Culture - Preliminary NO GROWTH AFTER 24 HOURS 03/11/24 15:55 Blood Blood Culture - Preliminary NO GROWTH AFTER 24 HOURS 03/07/24 14:13 Blood Blood Culture - Final NO GROWTH AFTER 5 DAYS 03/07/24 14:09 Blood Blood Culture - Final NO GROWTH AFTER 5 DAYS Constitutional Constitutional: chronically ill appearing *Routine Skin Exam Comments: Unchanged soft tissue swelling and tenderness throughout left buttock/hip region Progress Note: A&P Assessment and plan (1) Soft tissue swelling: Status: Acute (2) Sepsis: Status: Acute Assessment and Plan Assessment and Plan for All Diagnoses:: Leukocytosis worsened on last evening's labs (a.m. labs pending). Unchanged symptomatology. Incision and drainage this morning I have discussed the risks and benefits including, but not limited to: Bleeding Infection Damage to surrounding tissue Inherent risks of sedation The patient agrees to proceed.
--- NOTE | 2024-03-13 06:29 | PC.NURSE ---
Patient wheeled down to surgery suite at this time.
--- NOTE | 2024-03-13 06:29 | PC.NURSE ---
Pt left floor with surgery @06:29
[2024-03-13 07:01] LABS: INR 3.08 (0.9-1.1); Prothrombin Time 30.9 seconds (10.1-12.5)
[2024-03-13] MEDS: LIDOCAINE 1% 20ML MDV 20 ML (07:10)
--- NOTE | 2024-03-13 07:27 | EXP.OP.NOTE ---
Date of procedure: 03/13/24 Pre-op Diagnosis:: Left buttock/hip soft tissue swelling/possible abscess Leukocytosis Post-op Diagnosis:: Complex left lower extremity hematoma with projection at least to the knee Procedure performed:: Incision and drainage/partial evacuation of left buttock/hip/thigh hematoma Surgeon:: Enrique Joshi MD [employer]KER:: Eric Mckeon Anesthesia: local and LMA Estimated blood loss (mL): 15 Operative findings:: Large complex deep hematoma projecting from left buttock/hip/thigh region Operative note:: After informed consent was obtained the patient was taken to the operating room and placed in the right lateral decubitus position. General anesthesia with laryngeal mask airway was achieved. Obvious soft tissue swelling/ecchymosis was noted to project from the hip/buttock region throughout the thigh (to at least just above the knee). Electrocautery was utilized to remove an ellipse of skin and underlying adipose tissue along the lateral buttock/thigh region. A deep complex hematoma throughout the underlying musculature was encountered. A large volume of hematoma fluid was evacuated after a specimen was sent for Gram stain/culture. A second incision was made along the distal lateral/posterior thigh. Underlying soft tissue/muscular hematoma was evacuated. Both wounds were packed with Kerlix. Dressings were applied and the patient was transferred to recovery in stable condition. Condition: stable Disposition: PACU Specimens:: Fluid for Gram stain/culture Complications:: No immediate
--- NOTE | 2024-03-13 07:34 | EXP.ANES.I ---
[facility] Anesthesia Record Part I Anesthesia Record I Intake, IV Amount: 200 Hydration: Adequate Estimated blood loss (mL): 50 Urine output (mL): 0 Blood Pressure: 118/75 SaO2: 93 Pulse Rate: 100 Airway Patency: Patent Respiratory Rate: 16 Temperature: 98.3 F Patient is:: Awake and Stable Stable to PACU at:: 08:00
[2024-03-13 07:55] LABS: Alanine Aminotransferase 47 U/L (12-78); Albumin Level 3.5 g/dl (3.5-5.0); Albumin/Globulin Ratio 1.3 (1.1-1.8); Alkaline Phosphatase 75 U/L (38-126); Anion Gap 14.6 mEq/L (5-15); Aspartate Amino Transferase 62 U/L (17-59); Bilirubin,Total 1.4 mg/dl (0.2-1.3); Blood Urea Nitrogen 37 mg/dl (9-20); Calcium 8.8 mg/dl (8.4-10.2); Carbon Dioxide 25 mmol/L (22.0-30.0); Chloride 95 mmol/L (98-107); Creatinine Clearance Estimated 38 mL/min (50-200); Estimated Glomerular Filt Rate 43 ml/min (>60); GFR (African American) 52 ML/MIN (>60); Globulin 2.6 g/dL (1.3-3.2); Glucose 139 mg/dl (74-100); Potassium 4.6 mmoL/L (3.5-5.1); Sodium 130 mmol/L (136-145); Total Protein,Serum 6.1 g/dl (6.3-8.2)
[2024-03-13 08:00] LABS: C-Reactive Protein 171.9 mg/L (0-4)
--- NOTE | 2024-03-13 08:13 | CT_ITS ---
FINAL REPORT CLINICAL HISTORY: Subfascial hematoma on I D today. To below knee COMPARISON: None FINDINGS: CT ABDOMEN, CT PELVIS, CTA ABDOMEN, CTA PELVIS AND CTA LOWER EXTREMITY RUNOFF TECHNIQUE: Thin section axial CT with IV contrast supplemented with 3D MIP reconstruction under CT Angiogram protocol were obtained. Images of the lower calf are not available at this time. This study was performed with techniques to keep radiation doses as low as reasonably achievable, (ALARA). Individualized dose reduction techniques using automated exposure control or adjustment of mA and/or kV according to the patient's size were employed. FINDINGS: CT ANGIOGRAM ABDOMEN AND PELVIS: There is moderate diffuse plaque disease. There is no evidence of dissection, significant stenosis, or aneurysm of the aorta. Distal aortic ectasia is noted. There is mild ectasia of the iliac vessels without stenosis. Mild stenosis is noted of the renal arteries. There is mild stenosis of the mesenteric vessels. CTA RIGHT LOWER EXTREMITY: The common femoral artery is widely patent. There is mild plaque disease of the distal SFA without stenosis. The popliteal artery is widely patent. There is three-vessel runoff to the proximal calf. The distal calf is not assessed. CTA LEFT LOWER EXTREMITY: Common femoral and superficial femoral arteries are widely patent. The popliteal artery is widely patent. There is three-vessel runoff to the proximal calf. Hemorrhage is noted within the left gluteal musculature as well as in the left posterior thigh. There is no CT findings of active hemorrhage or pseudoaneurysm. Abdomen: Mild bibasilar atelectasis is noted. Solid abdominal organs are unremarkable aside from previous splenectomy. There is a dominant large gallstone measuring up to 6.3 cm without acute gallbladder disease. No bowel obstruction is seen. No retroperitoneal hemorrhage. Pelvis: Pelvic bowel loops are unremarkable. No free fluid. Small bilateral inguinal hernias are noted containing fat. IMPRESSION: No significant obstructive peripheral vascular disease to the level of the proximal calves. Images of the lower calves were not available at time of interpretation. Left gluteal and posterior thigh intramuscular hemorrhage without CT findings of acute bleeding or pseudoaneurysm. Reviewed, Interpreted and Dictated by Juan Alberto Overton MD Transcribed by Danay Smith Authenticated and . [facility]
[2024-03-13 08:32] LABS: Procalcitonin 0.333 ng/mL (0.0-2.0)
--- NOTE | 2024-03-13 09:25 | PC.NURSE ---
pt underwent an I&D of left hip hematoma this morning. physical therapy was trying to ambulate pt when they called this RN to inform me that the pt's dsg was saturated with blood and the patient was bleeding. This RN changed pt dsg and notified . Kristian came to bedside to assess pt and ordered this RN to change dsg again around 1100 today and to hold all blood thinners. pt vital signs showed no change from baseline and pt is still being monitored w/ post op vitals. call light within reach. This RN instructed pt to not get out of bed until cleared by .
[2024-03-13 09:32] LABS: Hematocrit 35.8 % (42.0-52.0); Hemoglobin 12.3 g/dL (14.1-18.0); Mean Corpuscular HGB Conc 34.4 g/dL (31.8-35.4); Mean Corpuscular Hemoglobin 35.1 pg (27.0-31.2); Mean Corpuscular Volume 102.3 fl (80-94); Mean Platelet Volume 11.9 fl (7.4-10.4); Platelet Count 203 K/mm3 (142-424); Red Cell Distribution Width 14.3 % (11.5-17.5); White Blood Count 27.6 K/mm3 (4.8-10.8)
[2024-03-13 09:33] LABS: Basophils # 0.2 K/mm3 (0-0.2); Basophils % 0.8 % (0.1-2.0); Eosinophils % 0.1 % (0.1-12.0); Lymphocytes # 4.6 K/mm3 (0.7-4.5); Lymphocytes % 16.6 % (10-50); Monocytes # 2.7 K/mm3 (0.1-1.0); Monocytes % 9.7 % (1.7-9.3); Neutrophils # 19.4 K/mm3 (1.8-7.8); Neutrophils % 70.3 % (37.0-80.0)
[2024-03-13 09:34] LABS: MANUAL DIFFERENTIAL MANUAL DIFFERENTIAL (MANUAL DIFF)
[2024-03-13] MEDS: MEMANTINE 10MG TABLET 10 MG PO ×2 (09:40→21:10)
[2024-03-13] MEDS: MEROPENEM 1 GM in 0.9 % SODIUM CHLORIDE 100 ML IV ×2 (09:40→23:04)
[2024-03-13] MEDS: CARVEDILOL 3.125MG TABLET 3.125 MG PO ×2 (09:40→21:10)
[2024-03-13] MEDS: CITALOPRAM 20MG TABLET 20 MG PO (09:40)
[2024-03-13] MEDS: BUMETANIDE 1 MG TABLET 2 MG PO ×2 (09:40→16:25)
--- NOTE | 2024-03-13 09:53 | HMH.OTEV ---
OT Inpatient Evaluation Rehab OT IP Evaluation Start: 03/10/24 16:53 Freq: ONCE Status: Active Protocol: Document 03/13/24 09:40 [facility] (Rec: 03/13/24 09:53 [facility] [id number]) Rehab OT IP Assessment Subjective History Pt oriented x 2 on arrival. Pt is very YOMBA SHOSHONE. Pt admitted on 03/07/24 due to CHF and COPD. On 03/13/24 pt required an incision and drainage/ partial evacuation of left buttock/hip/thigh hematoma. History and physical: 73-year-old male with significant past medical history of interstitial lung disease, ISAAC on CPAP, home O2 at night, hypertension, hyperlipidemia, chronic anticoagulation with Coumadin, CHF, pulmonary hypertension, and aortic valve stenosis. He presented to the ER with worsening cough and shortness of breath over the past 3 to 4 days. Symptoms have progressed. His primary care prescribed antibiotics 4 days ago for bronchitis/pneumonia. Symptoms are just not improved. He has been using his nebulizer at home. Having a hard time laying flat to sleep. Denies any chest pain, syncope, increased confusion, nausea or vomiting. Has had some increased swelling in his legs. Workup in the ER concerning for increased/ worsening respiratory failure and increased volume. Found to have left lower lobe pneumonia on chest imaging. Comprehensive respiratory panel positive for RSV. Necessitating 5 to 6 L to maintain sats above 90%. Medicine was consulted for admission and further management of acute on chronic respiratory failure and CHF exacerbation in the setting of RSV pneumonia Subjective I can't hear anything. Pt resting in bed on arrival. Pt reports prior to being in the hospital he lived at home alone. Pt claims he was independent with all ADLs and IADLs. Pt used a cane during functional transfers. Pt also still drove. Pt requesting to use urinal at eob. Therapist instructed patient on bed mobility to go from supine to sitting at eob with max assist x 2. Pt able to sit at eob for ~5-6 minutes in order to attempt to urinate in urinal. Pt able to sit at eob with good static sitting balance and cga. Min assist required for appropriate urinal placement. After sitting at eob for several minutes pt began bleeding from both incisions on left leg. Max assist x 2 required to go from sitting to supine. Therapist told nurse who came in and changed bandages. Pt was left resting in bed with call zhou and all other needs in reach. Objective Patient Orientation Person,Birthday Right Upper Extremity Gross ROM WFL Left Upper Extremity Gross ROM WFL Bed Mobility bed mobility-scooting,bed mobility - supine/sit Assist Level Maximum x 2 (75% assist) Performing Toilet Hygiene Ability Minimal Assistance Rehab OT IP prob,goals,plan Problems Date of Evaluation: 03/13/24 OT IP Problems Bed Mobility,Transfers,Balance ,Self care,Safety Rehab Potential Rehab Potential Good Equipment Needs Assistive Devices Rolling / Wheeled Walker Plan OT intervention Plan Bed Mobility,Transfers,Balance ,Self care,Safety,Therapeutic Exercise OT Plan Frequency Daily Duration LOS Discharge Goals Bed Mobility Ability Assistance x1 Sit to Stand Chair Transfer Ability Maximum x 1 (75% assist) Chair Transfer Ability Maximum x 1 (75% assist) Chair Transfer Technique Sit to/from Ambulatory Chair Transfer Assistive Devices Rolling Walker Feeding Ability Assist with Tray Set Up Lower Body Dressing Ability Maximum Assistance Upper Body Dressing Ability Minimal Assistance Bathing Ability Maximum Assistance Performing Toilet Hygiene Ability Maximum Assistance Overall Commode/Toilet Transfer Ability Maximum Assistance Commode/Toilet Transfer Technique Sit to/from Ambulatory Commode/Toilet Transfer Assistive Grab Bars Devices Oral Care Assist Standby Assistance Decrease in Endurance No Discharge Plan OT Discharge Plan Pt will continue to be seen for OT services while at [facility]. Pt would benefit most from short term rehab at [facility] following discharge from therapy. Continued skilled therapy is important in order for patient to improve strength, safety, endurance, ADL independence, and functional transfers to reach [facility]. Eval Complexity Eval Charge Codes 41222 - Moderate Complexity PHYSICIAN CERTIFICATION: I certify the specified therapy services for Reji Carrillo are required, authorized, and reviewed every 30 days.
--- NOTE | 2024-03-13 10:22 | SW/DCPLANNER ---
Addendum entered by Felecia Howell 03/13/24 11:46: [facility] is following this patient and is interested. Shaista w/ [facility] stated that she can accept this patient once medically stable for discharge. Discharge date is unknown at this time. I will continue to follow up. Original Note: I spoke w/ this patient regarding plans once medically stable for discharge. PT/OT originally stated that patient could return home w/ home health services. However, due to decline therapy is now suggesting placement. Patient and ex (Zuly) present in the room at time of my visit. Patient is agreeable to placement and prefers to stay in [place]. Patient information has been faxed to [facility] and [facility]. I will continue to follow up w/ facilities. Tona shearer/ [facility] stated no short term male beds available at this time. I will continue to follow up. Discharge date is unknown at this time.
[2024-03-13] MEDS: IOPAMIDOL-370 (76%);100ML BOTTLE 120 ML IV (11:05)
[2024-03-13] MEDS: 0.9 % SODIUM CHLORIDE 50 ML VIAL IV ×4 (11:05→20:45)
[2024-03-13] MEDS: SODIUM CHLORIDE 0.9% 10ML SYR (RAD ONLY) 10 ML IV ×2 (11:05→20:45)
[2024-03-13 11:11] LABS: Erythrocyte Sedimentation Rate 85 mm/hr (0-20)
--- NOTE | 2024-03-13 11:34 | EXP.ANES.II ---
[facility] Anesthesia Record Part II Anesthesia Record Part II Discharge Time: 08:00 Destination: Medical Surgical Department PACU nurse assessment reviewed?: Yes Patient Condition:: Good Anesthesia Complications:: None Swallowing reflex intact?: Yes Airway Patency: Patent Cyanosis?: No Blood Pressure: 140/74 SaO2: 92 Respiratory Rate: 16 Pulse Rate: 91 Temperature: 98.3 F Mental Status: Alert & Oriented Pain level:: 0 Nausea and/or vomitting:: None Intake, IV Amount: 0 Hydration: Adequate
[2024-03-13] MEDS: MORPHINE 2MG/ML SYRINGE 2 MG IV (12:36)
[2024-03-13 14:07] LABS: Anisocytosis 2+; Giant Platelets 2+; Lymphocytes % 10 % (10-50); Monocytes % 13 % (2-9); Neutrophils % 75 % (42-76); Platelet Estimate Normal; Total Cells Counted 100
[2024-03-13 14:08] LABS: Burr Cells 2+; Macrocytosis 2+; Microcytosis 1+
[2024-03-13] MEDS: FLUTICASONE/UMECLIDIN/VILANTER 100/62.5/25MCG INHALER 1 PUFF IH (14:47)
[2024-03-13] MEDS: IPRATROPIUM/ALBUTEROL 3 ML NEB IH (14:53)
[2024-03-13] MEDS: HYDROMORPHONE 2MG/ML SYRINGE 2 MG IV ×2 (16:25→23:04)
[2024-03-13 18:00] LABS: Vancomycin,Trough 11.9 ug/mL (5.0-10.0)
--- NOTE | 2024-03-13 18:30 | PC.NURSE ---
overnight pharmacy called w/ vanc. trough results. okayed to hang ordered vanc per pharmacy
[2024-03-13] MEDS: VANCOMYCIN HCL 2,000 MG in 0.9 % SODIUM CHLORIDE 250 ML 125 MG IV (18:31)
--- NOTE | 2024-03-13 19:03 | PC.NURSE ---
dsg changed again d/t it being saturated w/ blood. pt had x1 chux pad saturated as well. alice notified and believes it is the hematoma releasing. no new orders at this time. call light within reach.
--- NOTE | 2024-03-13 19:21 | PC.NURSE ---
pt c/o some numbness and tingling in lower extremity that had I&D performed today. hospitalist was made aware and she recommended to call surgeon. was paged and this RN spoke to him about pt complaints. Letty suggested possible transfer d/t s/s of compartment syndrome. hospitalist was called back and made aware of situation. no new orders at this time. call light within reach.
--- NOTE | 2024-03-13 19:27 | CT_ITS ---
PROCEDURE INFORMATION: Exam: CTA Left Lower Extremity With Contrast Exam date and time: 03/13/2024 8:25 PM Age: 73 years old Clinical indication: Other: S/s of compartment syndrome TECHNIQUE: Imaging protocol: Computed tomographic angiography of the left lower extremity with contrast. 3D rendering (Not supervised by radiologist): MIP and/or 3D reconstructed images were created by the technologist. Radiation optimization: All CT scans at this facility use at least one of these dose optimization techniques: automated exposure control; mA and/or kV adjustment per patient size (includes targeted exams where dose is matched to clinical indication); or iterative reconstruction. Contrast material: ISOVUE 370; Contrast volume: 120 ml; Contrast route: INTRAVENOUS (IV); COMPARISON: CT ABDOMEN PELVIS W CON 03/12/2024 10:31 AM FINDINGS: Aorta: Distal aorta is patent. Left iliac arteries: Left internal iliac artery is patent. Left common iliac artery is patent. Left external iliac artery is patent. Left femoral/popliteal arteries: Left common femoral artery is patent. Left profunda femoris artery is patent. Left superficial femoral artery is patent. Left popliteal artery is patent. Left infrapopliteal arteries: Left tibioperoneal trunk is patent. Left anterior tibial artery, posterior tibial artery, and peroneal artery segments are patent. Bones/joints: No acute fracture. No dislocation. Soft tissues: Focal low-density lesion in the quadriceps muscle measuring 5.2 x 3.2 cm image 5/155. The lesion extends superior to inferior for 10 cm. This lesion has mild rim enhancement. There is marked swelling of the quadriceps musculature in this region with perifocal hyperemia and possible edema. Other findings: Extensive edema left lower extremity. IMPRESSION: 1. Extensive edema left lower extremity. 2. Focal low-density lesion in the quadriceps muscle measuring 5.2 x 3.2 cm image 5/155. The lesion extends superior to inferior for 10 cm. This lesion has mild rim enhancement. 3. There is marked swelling of the quadriceps musculature in this region with perifocal hyperemia and possible edema. 4. The constellation of findings may reflect a intramuscular abscess. Clinical correlation recommended. 5. Patent left lower extremity vessels.
[2024-03-13 19:48] LABS: Hematocrit 27.3 % (42.0-52.0); Mean Corpuscular HGB Conc 35.5 g/dL (31.8-35.4); Mean Corpuscular Hemoglobin 34.9 pg (27.0-31.2); Mean Corpuscular Volume 98.2 fl (80-94); Red Blood Count 2.78 M/mm3 (4.60-6.20); Red Cell Distribution Width 13.9 % (11.5-17.5); White Blood Count 28.6 K/mm3 (4.8-10.8)
[2024-03-13 19:49] LABS: Basophils # 0.2 K/mm3 (0-0.2); Basophils % 0.1 % (0.1-2.0); Eosinophils # 0.1 K/mm3 (0.0-0.4); Lymphocytes # 4.9 K/mm3 (0.7-4.5); Mean Platelet Volume 12.3 fl (7.4-10.4); Monocytes # 3.2 K/mm3 (0.1-1.0); Monocytes % 11.1 % (1.7-9.3); Neutrophils # 19.8 K/mm3 (1.8-7.8); Neutrophils % 69.1 % (37.0-80.0); Platelet Count 272 K/mm3 (142-424)
[2024-03-13 19:50] LABS: MANUAL DIFFERENTIAL MANUAL DIFFERENTIAL (MANUAL DIFF)
[2024-03-13] MEDS: IOPAMIDOL-370 (76%);100ML BOTTLE 100 ML IV (20:45)
[2024-03-13] MEDS: IOPAMIDOL-370 (76%);100ML BOTTLE 20 ML IV (20:45)
[2024-03-13 21:11] LABS: Burr Cells 1+; Lymphocytes % 14 % (10-50); Monocytes % 9 % (2-9); Neutrophils % 77 % (42-76); Platelet Estimate Normal; Total Cells Counted 100
--- NOTE | 2024-03-13 21:22 | P.PN_ITS ---
Subjective *Date: 03/13/24 *Time: 21:22 Interval history: Patient was initially doing well after I&D for left lower extremity hematoma. Around 5 PM patient began complaining of slight numbness and tingling in the left thigh with somewhat increased pain. These signs were concerning for c ompartment syndrome. ? General Surgery consulted, recommended transferring to tertiary center for fasciotomy. Currently waiting on callback from [facility]. Exam Data for Last 24 hours Vital signs and Labs for Last 24 Hours: Temp Pulse Resp BP Pulse Ox O2 Del Method O2 Flow Rate 98.2 F 102 H 18 120/93 H 92 L CPAP 3 03/13/24 19:51 03/13/24 19:51 03/13/24 19:51 03/13/24 19:51 03/13/24 19:51 03/13/24 19:51 03/13/24 13:00 Laboratory Results - last 24 hr 03/12/24 20:00: Total Counted 100, Neutrophils % (Manual) 75, Lymphocytes % (Manual) 20, Monocytes % (Manual) 5, Platelet Estimate Normal, Giant Platelets 2+, RBC Morphology Normal 03/13/24 06:12: WBC 27.6 H*, RBC 3.50 L, Hgb 12.3 L, Hct 35.8 L, MCV 102.3 H, MCH 35.1 H, MCHC 34.4, RDW 14.3, Plt Count 203 D, MPV 11.9 H, Neut % (Auto) 70.3, Lymph % (Auto) 16.6, [place] % (Auto) 9.7 H, Eos % (Auto) 0.1, Baso % (Auto) 0.8, Neut # (Auto) 19.4 H, Lymph # (Auto) 4.6 H, [place] # (Auto) 2.7 H, Eos # (Auto) 0.0, Baso # (Auto) 0.2, Total Counted 100, Neutrophils % (Manual) 75, Band Neutrophils % 2.0, Lymphocytes % (Manual) 10, Monocytes % (Manual) 13 H, Platelet Estimate Normal, Giant Platelets 2+, RBC Morphology Not Reportable, Anisocytosis 2+, Microcytosis 1+, Macrocytosis 2+, Mohler Cells 2+, ESR Cancelled, PT 30.9 H, INR 3.08 H, Sodium 130 L, Potassium 4.6 D, Chloride 95 L, Carbon Dioxide 25, Anion Gap 14.6, BUN 37 H D, Creatinine 1.60 H D, Estimated Creat Clear 38, Estimated GFR 43 L, Est GFR ( Amer) 52 L D, Glucose 139 H, Calcium 8.8, Total Bilirubin 1.4 H, AST 62 H D, ALT 47, Alkaline Phosphatase 75, C-Reactive Protein 171.9 H, Total Protein 6.1 L, Albumin 3.5, Globulin 2.6, Albumin/Globulin Ratio 1.3, Procalcitonin 0.333 03/13/24 10:02: ESR 85 H 03/13/24 17:15: Vancomycin Trough 11.9 H 03/13/24 19:26: WBC 28.6 H*, RBC 2.78 L, Hct 27.3 L, MCV 98.2 H, MCH 34.9 H, MCHC 35.5 H, RDW 13.9, Plt Count 272 D, MPV 12.3 H, Neut % (Auto) 69.1, Lymph % (Auto) 17.0, [place] % (Auto) 11.1 H, Eos % (Auto) 0.0 L, Baso % (Auto) 0.1, Neut # (Auto) 19.8 H, Lymph # (Auto) 4.9 H, [place] # (Auto) 3.2 H, Eos # (Auto) 0.1, Baso # (Auto) 0.2, Total Counted 100, Neutrophils % (Manual) 77 H, Lymphocytes % (Manual) 14, Monocytes % (Manual) 9, Platelet Estimate Normal, Angella Cells 1+ I & O for Last 24 hours: Intake & Output 03/10/24 03/11/24 03/12/24 03/13/24 23:59 23:59 23:59 23:59 Intake Total 1500 / 1500 1295 / 2757 2628 / 3959 2461 / 2461 Output Total 2350 / 2350 2100 / 2100 1400 / 1400 800 / 800 Balance -850 / -850 -664 / 351 1228 / 2550 1661 / 1661 Weight 116.6 kg 116.165 kg 116.709 kg 116.301 kg Microbiology Reports for the Last 24 Hours: Microbiology 03/11/24 16:00 Blood Blood Culture - Preliminary NO GROWTH AFTER 48 HOURS 03/11/24 15:55 Blood Blood Culture - Preliminary NO GROWTH AFTER 48 HOURS 03/11/24 08:46 Nose MRSA Culture - Final Constitutional Constitutional: no acute distress, obese and cooperative *Routine HEENT Exam Eye: Present PERRL *Routine Respiratory Exam Respiratory: Present CTA bilaterally; Absent accessory muscle use, wheezes or crackles Comments: Mild diffuse wheezing and productive cough *Routine Cardiovascular Exam Cardiovascular: Present RRR, Normal S1 and Normal S2; Absent murmur, gallop or rubs *Routine Abdominal Exam Abdominal: Present soft and distended; Absent tenderness *Routine Extremities Exam Extremities: Present pulses intact; Absent cyanosis or edema Comments: Swelling, tightness of left lower extremity. Pedal pulses are palpable. *Routine Skin Exam Skin: Present intact; Absent erythema or wounds *Routine Neurological Exam Neurological: Present alert and oriented X3 Routine Psychiatric Exam Psychiatric: Present cooperative Assessment and Plan *Assessment and plan (1) Sepsis: Status: Acute Category: Medical Code(s): A41.9 - Sepsis, unspecified organism (2) CHF exacerbation: Status: Acute Category: Medical Code(s): I50.9 - Heart failure, unspecified (3) Acute hypoxemic respiratory failure: Status: Acute Category: Medical Code(s): J96.01 - Acute respiratory failure with hypoxia (4) RSV (respiratory syncytial virus pneumonia): Status: Acute Category: Medical Code(s): J12.1 - Respiratory syncytial virus pneumonia (5) NSTEMI (non-ST elevated myocardial infarction): Status: Acute Category: Medical Code(s): I21.4 - Non-ST elevation (NSTEMI) myocardial infarction (6) Neutropenia: Status: Acute Category: Medical Code(s): D70.9 - Neutropenia, unspecified (7) MIGUEL A (acute kidney injury): Status: Acute Category: Medical Code(s): N17.9 - Acute kidney failure, unspecified (8) Chronic respiratory failure: Problem Comment: On Astral and O2 at night Status: Chronic Qualifiers: Respiratory failure complication: hypoxia Qualified Code(s): J96.11 - Chronic respiratory failure with hypoxia Category: Medical Code(s): J96.10 - Chronic respiratory failure, unspecified whether with hypoxia or hypercapnia (9) ISAAC (obstructive sleep apnea): Problem Comment: Stable Status: Chronic Category: Medical Code(s): G47.33 - Obstructive sleep apnea (adult) (pediatric) (10) Memory loss or impairment: Problem Comment: He was started on Namenda by Dr. Hi, previous PCP. 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 06/2023 brain MRI, B12, folate, TSH: No significant abnormalities. 12/29/2023: Stable Status: Chronic Category: Medical Code(s): R41.3 - Other amnesia (11) Obesity: Status: Acute Qualifiers: Obesity type: due to excess calories Obesity classification: adult class 3 (BMI >= 40) Serious obesity comorbidity presence: with serious comorbidity Body mass index: BMI 40.0-44.9 Qualified Code(s): E66.01 - Morbid (severe) obesity due to excess calories; Z68.41 - Body mass index [BMI] 40.0- 44.9, adult Category: Medical Code(s): E66.9 - Obesity, unspecified (12) CKD (chronic kidney disease) stage 3, GFR 30-59 ml/min: Status: Chronic Qualifiers: Chronic kidney disease stage 3 subtype: stage 3a (GFR 45-59) Qualified Code(s): N18.31 - Chronic kidney disease, stage 3a Category: Medical Code(s): N18.30 - Chronic kidney disease, stage 3 unspecified (13) COPD exacerbation: Status: Chronic Category: Medical Code(s): J44.1 - Chronic obstructive pulmonary disease with (acute) exacerbation (14) DVT (deep venous thrombosis): Status: Resolved Category: Medical Code(s): I82.409 - Acute embolism and thrombosis of unspecified deep veins of unspecified lower extremity (15) Aortic valve stenosis: Status: Chronic Qualifiers: Cardiac valve disease etiology: etiology unspecified Qualified Code(s): I35.0 - Nonrheumatic aortic (valve) stenosis Category: Medical Code(s): I35.0 - Nonrheumatic aortic (valve) stenosis (16) History of pulmonary embolism: Status: Chronic Category: Medical Code(s): Z86.711 - Personal history of pulmonary embolism (17) Pulmonary hypertension: Status: Chronic Category: Medical Code(s): I27.20 - Pulmonary hypertension, unspecified Plan Reji Carrillo is a 73-year-old male with multiple comorbidities. Presents with worsening shortness of breath over the past 3 to 4 days. Failed outpatient therapy with antibiotics. Workup in the ER concerning for pneumonia, acute on chronic hypoxemic respiratory failure, RSV, CHF exacerbation. Case discussed with ER physician, request admission for further management. #Sepsis #Suspected left lower extremity infected hematoma #Suspected compartment syndrome - Patient complained of left hip today, and more difficulty walking. - Exam shows left lateral swelling with induration of left buttock with tenderness, but no overlying cellulitis. - Initial CT abdomen/pelvis suggested phlegmon. ? S/p I&D with discovery and evacuation of about 100 cc hematoma. Per discussi on with general surgery, only part of the hematoma was drained. ? There was intermittent drainage of blood through incision sites since surgery, thought to be hematoma. Patient was also getting relief since I&D this morning. ? However, around 5 PM patient began complaining of slight numbness and tingling in the left thigh with somewhat increased pain. These signs were concerning for compartment syndrome. ? General Surgery consulted, recommended transferring to tertiary center for fasciotomy. Currently waiting on callback from [facility]. - WBC worsened to 28.6, from 20 yesterday. - Continue vancomycin, meropenem. ? Discontinued warfarin. Of note, patient was being bridged with Lovenox for subtherapeutic INR during admission. #Acute on chronic hypoxic respiratory failure #Left lower lobe pneumonia #RSV - CTA does show LLL pneumonia. - Continue CPAP at night or while asleep. Continue Trelegy 100 inhaler along with DuoNebs every 6 hours. - Continue supplemental oxygen as needed for goal sats greater than 90%. On 2 L on rounds. Wears 3-1/2 at night through his CPAP. Normally on room air at home during the day. No need for steroids. - CT chest shows improving pneumonia. ? Treated with antibiotics as above. #Acute on chronic heart failure with preserved ejection fraction #NSTEMI type 2 - BNP of 1000 on admission. No chest pain. EKG with no ischemic changes. Likely supply/demand mismatch in the setting of hypoxia and pneumonia. - Cardiology evaluated patient today, discussed case, recommend continuing carvedilol, statin, warfarin. - Continue carvedilol 3.125 mg twice daily, continue Jardiance 10 mg daily - Transitioned to PO Bumex 2mg BID. - ECHO shows normal biventricular function. #Chronic DVT/PE #Subtherapeutic INR, resolved - On warfarin therapy daily. Intial Subtherapeutic with INR of 1.8. - INR 3.08. ?Discontinued warfarin in the setting of hematoma as above. Continue levothyroxine 50 g daily for hypothyroid Mild cognitive impairment: Continues citalopram 20 mg daily, memantine 10 mg twice daily. Full code Cardiac diet Holding anticoagulation in the setting of hematoma as above
[2024-03-13 21:48] LABS: Hemoglobin 9.7 g/dL (14.1-18.0)
[2024-03-13 21:56] LABS: Creatine Kinase 750 U/L (55-170)
[2024-03-13 22:33] LABS: Lactic Acid 1.7 mmol/L (0.7-2.1)
--- NOTE | 2024-03-13 23:22 | EXP.DC.SUM ---
General Admission date:: 03/07/24 Discharge date: 03/13/24 HPI HPI HPI: Taken from H/P 03/07/24: 73-year-old male with significant past medical history of interstitial lung disease, ISAAC on CPAP, home O2 at night, hypertension, hyperlipidemia, chronic anticoagulation with Coumadin, CHF, pulmonary hypertension, and aortic valve stenosis. He presented to the ER with worsening cough and shortness of breath over the past 3 to 4 days. Symptoms have progressed. His primary care prescribed antibiotics 4 days ago for bronchitis/pneumonia. Symptoms are just not improved. He has been using his nebulizer at home. Having a hard time laying flat to sleep. Denies any chest pain, syncope, increased confusion, nausea or vomiting. Has had some increased swelling in his legs. Workup in the ER concerning for increased/worsening respiratory failure and increased volume. Found to have left lower lobe pneumonia on chest imaging. Comprehensive respiratory panel positive for RSV. Necessitating 5 to 6 L to maintain sats above 90%. Medicine was consulted for admission and further management of acute on chronic respiratory failure and CHF exacerbation in the setting of RSV pneumonia. On arrival to the floor, patient is more comfortable on 5 L. Denies any chest pain. History obtained from patient and his ex- who is his caregiver. Alert and oriented on exam. This is a 73-year-old gentleman seen in consultation from the primary service for evaluation regarding possible left hip/buttock abscess. He is currently being treated for pneumonia/RSV and was found to have worsening leukocytosis. Over the past 24 to 48 hours he has seemingly developed tenderness/swelling along the left hip/buttock. A CT scan revealed questionable phlegmonous changes. Hospital Course Hospital Course Hospital Course: Reji Carrillo is a 73-year-old male with multiple comorbidities. Presented with worsening shortness of breath over the past 3 to 4 days. Failed outpatient therapy with antibiotics. Admitted to [facility] on 03/07 Workup in the ER concerning for pneumonia, acute on chronic hypoxemic respiratory failure, RSV, CHF exacerbation and Sepsis. Also complained of falls, found to have a left lower extremity infected hematoma. Had evacuation of the hematoma on 03/13/24, following had symptoms of compartment syndrome. Seen by General Surgery and assessed following ID on 03/13/24. General Laguerre spoke with Trauma Surgery at . Transferring to for higher level of care. #Sepsis #Suspected left lower extremity infected hematoma #Suspected compartment syndrome - Patient complained of left hip today, and more difficulty walking. - Exam shows left lateral swelling with induration of left buttock with tenderness, but no overlying cellulitis. - Initial CT abdomen/pelvis suggested phlegmon. ? S/p I&D with discovery and evacuation of about 100 cc hematoma. Per discussion with general surgery, only part of the hematoma was drained. ? There was intermittent drainage of blood through incision sites since surgery, thought to be hematoma. Patient was also getting relief since I&D this morning. ? However, around 5 PM patient began complaining of slight numbness and tingling in the left thigh with somewhat increased pain. These signs were concerning for compartment syndrome. ? General Surgery consulted, recommended transferring to tertiary center for fasciotomy. Currently waiting on callback from [facility]. - WBC worsened to 28.6, from 20 yesterday. - Continue vancomycin, meropenem. ? Discontinued warfarin. Of note, patient was being bridged with Lovenox for subtherapeutic INR during admission. #Acute on chronic hypoxic respiratory failure #Left lower lobe pneumonia #RSV - CTA does show LLL pneumonia. - Continue CPAP at night or while asleep. Continue Trelegy 100 inhaler along with DuoNebs every 6 hours. - Continue supplemental oxygen as needed for goal sats greater than 90%. On 2 L on rounds. Wears 3-1/2 at night through his CPAP. Normally on room air at home during the day. No need for steroids. - CT chest shows improving pneumonia. ? Treated with antibiotics as above. #Acute on chronic heart failure with preserved ejection fraction #NSTEMI type 2 - BNP of 1000 on admission. No chest pain. EKG with no ischemic changes. Likely supply/demand mismatch in the setting of hypoxia and pneumonia. - Cardiology evaluated patient today, discussed case, recommend continuing carvedilol, statin, warfarin. - Continue carvedilol 3.125 mg twice daily, continue Jardiance 10 mg daily - Transitioned to PO Bumex 2mg BID. - ECHO shows normal biventricular function. #Chronic DVT/PE #Subtherapeutic INR, resolved - On warfarin therapy daily. Intial Subtherapeutic with INR of 1.8. - INR 3.08. ?Discontinued warfarin in the setting of hematoma as above. Continue levothyroxine 50 g daily for hypothyroid Mild cognitive impairment: Continues citalopram 20 mg daily, memantine 10 mg twice daily. Discussed plan and exam findings as documented with [employer], agree with plan to transfer to higher level of care. Exam Data for Last 24 hours Vital signs and Labs for Last 24 Hours: Temp Pulse Resp BP Pulse Ox O2 Del Method O2 Flow Rate 98.2 F 102 H 18 120/93 H 92 L CPAP 3 03/13/24 19:51 03/13/24 19:51 03/13/24 19:51 03/13/24 19:51 03/13/24 19:51 03/13/24 19:51 03/13/24 13:00 Laboratory Results - last 24 hr 03/13/24 06:12: WBC 27.6 H*, RBC 3.50 L, Hgb 12.3 L, Hct 35.8 L, MCV 102.3 H, MCH 35.1 H, MCHC 34.4, RDW 14.3, Plt Count 203 D, MPV 11.9 H, Neut % (Auto) 70.3, Lymph % (Auto) 16.6, Cedar % (Auto) 9.7 H, Eos % (Auto) 0.1, Baso % (Auto) 0.8, Neut # (Auto) 19.4 H, Lymph # (Auto) 4.6 H, Cedar # (Auto) 2.7 H, Eos # (Auto) 0.0, Baso # (Auto) 0.2, Total Counted 100, Neutrophils % (Manual) 75, Band Neutrophils % 2.0, Lymphocytes % (Manual) 10, Monocytes % (Manual) 13 H, Platelet Estimate Normal, Giant Platelets 2+, RBC Morphology Not Reportable, Anisocytosis 2+, Microcytosis 1+, Macrocytosis 2+, Angella Cells 2+, ESR Cancelled, PT 30.9 H, INR 3.08 H, Sodium 130 L, Potassium 4.6 D, Chloride 95 L, Carbon Dioxide 25, Anion Gap 14.6, BUN 37 H D, Creatinine 1.60 H D, Estimated Creat Clear 38, Estimated GFR 43 L, Est GFR ( Amer) 52 L D, Glucose 139 H, Calcium 8.8, Total Bilirubin 1.4 H, AST 62 H D, ALT 47, Alkaline Phosphatase 75, C-Reactive Protein 171.9 H, Total Protein 6.1 L, Albumin 3.5, Globulin 2.6, Albumin/Globulin Ratio 1.3, Procalcitonin 0.333 03/13/24 10:02: ESR 85 H 03/13/24 17:15: Vancomycin Trough 11.9 H 03/13/24 17:16: Total Creatine Kinase 750 H* 03/13/24 19:26: WBC 28.6 H*, RBC 2.78 L, Hgb 9.7 L D, Hct 27.3 L, MCV 98.2 H, MCH 34.9 H, MCHC 35.5 H, RDW 13.9, Plt Count 272 D, MPV 12.3 H, Neut % (Auto) 69.1, Lymph % (Auto) 17.0, Cedar % (Auto) 11.1 H, Eos % (Auto) 0.0 L, Baso % (Auto) 0.1, Neut # (Auto) 19.8 H, Lymph # (Auto) 4.9 H, Cedar # (Auto) 3.2 H, Eos # (Auto) 0.1, Baso # (Auto) 0.2, Total Counted 100, Neutrophils % (Manual) 77 H, Lymphocytes % (Manual) 14, Monocytes % (Manual) 9, Platelet Estimate Normal, Patterson Cells 1+ 03/13/24 22:16: Lactate 1.7 I & O for Last 24 hours: Intake & Output 03/10/24 03/11/24 03/12/24 03/13/24 23:59 23:59 23:59 23:59 Intake Total 1500 / 1500 1295 / 2757 2628 / 3959 2461 / 2461 Output Total 2350 / 2350 2100 / 2100 1400 / 1400 800 / 800 Balance -850 / -850 -805 / 657 1228 / 2559 1661 / 1661 Weight 116.6 kg 116.165 kg 116.709 kg 116.301 kg Microbiology Reports for the Last 24 Hours: Microbiology 03/13/24 07:14 Hip,Left - Abscess Gram Stain - Final 03/11/24 16:00 Blood Blood Culture - Preliminary NO GROWTH AFTER 48 HOURS 03/11/24 15:55 Blood Blood Culture - Preliminary NO GROWTH AFTER 48 HOURS 03/11/24 08:46 Nose MRSA Culture - Final Constitutional Constitutional: no acute distress *Routine HEENT Exam Head: Present normocephalic Eye: Present EOMI and PERRL *Routine Neck Exam Neck: Present supple and full ROM *Routine Respiratory Exam Respiratory: Present CTA bilaterally *Routine Cardiovascular Exam Cardiovascular: Present RRR, Normal S1 and Normal S2 *Routine Abdominal Exam Abdominal: Present soft and normoactive bowel sounds *Routine Extremities Exam Comments: Left Lower Extremity with swelling that extends from thigh down to toes, decreased PP/DP, complains of tingling in extremity. Results Data Completed and Pending Labs on day of discharge: Labs from last 24 hours 03/13/24 03/13/24 03/13/24 22:16 19:26 17:16 WBC 28.6 H* RBC 2.78 L Hgb 9.7 L D Hct 27.3 L MCV 98.2 H MCH 34.9 H MCHC 35.5 H RDW 13.9 Plt Count 272 D MPV 12.3 H Neut % (Auto) 69.1 Lymph % (Auto) 17.0 Cedar % (Auto) 11.1 H Eos % (Auto) 0.0 L Baso % (Auto) 0.1 Neut # (Auto) 19.8 H Lymph # (Auto) 4.9 H Cedar # (Auto) 3.2 H Eos # (Auto) 0.1 Baso # (Auto) 0.2 Total Counted 100 Neutrophils % (Manual) 77 H Band Neutrophils % Lymphocytes % (Manual) 14 Monocytes % (Manual) 9 Platelet Estimate Normal Giant Platelets RBC Morphology Anisocytosis Microcytosis Macrocytosis Angella Cells 1+ ESR PT INR Sodium Potassium Chloride Carbon Dioxide Anion Gap BUN Creatinine Estimated Creat Clear Estimated GFR Est GFR ( Amer) Glucose Lactate 1.7 Calcium Total Bilirubin AST ALT Alkaline Phosphatase Total Creatine Kinase 750 H* C-Reactive Protein Total Protein Albumin Globulin Albumin/Globulin Ratio Procalcitonin Vancomycin Trough 03/13/24 03/13/24 03/13/24 17:15 10:02 06:12 WBC 27.6 H* RBC 3.50 L Hgb 12.3 L Hct 35.8 L MCV 102.3 H MCH 35.1 H MCHC 34.4 RDW 14.3 Plt Count 203 D MPV 11.9 H Neut % (Auto) 70.3 Lymph % (Auto) 16.6 Cedar % (Auto) 9.7 H Eos % (Auto) 0.1 Baso % (Auto) 0.8 Neut # (Auto) 19.4 H Lymph # (Auto) 4.6 H Cedar # (Auto) 2.7 H Eos # (Auto) 0.0 Baso # (Auto) 0.2 Total Counted 100 Neutrophils % (Manual) 75 Band Neutrophils % 2.0 Lymphocytes % (Manual) 10 Monocytes % (Manual) 13 H Platelet Estimate Normal Giant Platelets 2+ RBC Morphology Not Reportable Anisocytosis 2+ Microcytosis 1+ Macrocytosis 2+ Patterson Cells 2+ ESR 85 H Cancelled PT 30.9 H INR 3.08 H Sodium 130 L Potassium 4.6 D Chloride 95 L Carbon Dioxide 25 Anion Gap 14.6 BUN 37 H D Creatinine 1.60 H D Estimated Creat Clear 38 Estimated GFR 43 L Est GFR ( Amer) 52 L D Glucose 139 H Lactate Calcium 8.8 Total Bilirubin 1.4 H AST 62 H D ALT 47 Alkaline Phosphatase 75 Total Creatine Kinase C-Reactive Protein 171.9 H Total Protein 6.1 L Albumin 3.5 Globulin 2.6 Albumin/Globulin Ratio 1.3 Procalcitonin 0.333 Vancomycin Trough 11.9 H Preliminary micro results at discharge 03/11/24 16:00 Blood Culture - Preliminary Blood NO GROWTH AFTER 48 HOURS 03/11/24 15:55 Blood Culture - Preliminary Blood NO GROWTH AFTER 48 HOURS DS: Diagnosis Discharge Diagnosis (1) Sepsis: Start date: 03/07/24 Status: Acute Code(s): A41.9 - Sepsis, unspecified organism (2) CHF exacerbation: Status: Acute Code(s): I50.9 - Heart failure, unspecified (3) Acute hypoxemic respiratory failure: Status: Acute Code(s): J96.01 - Acute respiratory failure with hypoxia (4) RSV (respiratory syncytial virus pneumonia): Status: Acute Code(s): J12.1 - Respiratory syncytial virus pneumonia (5) NSTEMI (non-ST elevated myocardial infarction): Status: Acute Code(s): I21.4 - Non-ST elevation (NSTEMI) myocardial infarction (6) Neutropenia: Status: Acute Code(s): D70.9 - Neutropenia, unspecified (7) MIGUEL A (acute kidney injury): Status: Acute Code(s): N17.9 - Acute kidney failure, unspecified (8) Chronic respiratory failure: Status: Chronic Code(s): J96.10 - Chronic respiratory failure, unspecified whether with hypoxia or hypercapnia Qualifiers: Respiratory failure complication: hypoxia Qualified Code(s): J96.11 - Chronic respiratory failure with hypoxia Problem details: On Astral and O2 at night (9) ISAAC (obstructive sleep apnea): Status: Chronic Code(s): G47.33 - Obstructive sleep apnea (adult) (pediatric) Problem details: Stable (10) Memory loss or impairment: Status: Chronic Code(s): R41.3 - Other amnesia Problem details: He was started on Namenda by Dr. Hi, previous PCP. Baseline MMSE MCI with memory loss, at risk for vascular dementia. 06/2023 brain MRI, B12, folate, TSH: No significant abnormalities. 12/29/2023: Stable (11) Obesity: Status: Acute Code(s): E66.9 - Obesity, unspecified Qualifiers: Body mass index: BMI 40.0-44.9 Obesity classification: adult class 3 (BMI >= 40) Obesity type: due to excess calories Serious obesity comorbidity presence: with serious comorbidity Qualified Code(s): E66.01 - Morbid (severe) obesity due to excess calories; Z68.41 - Body mass index [BMI] 40.0-44.9, adult (12) CKD (chronic kidney disease) stage 3, GFR 30-59 ml/min: Status: Chronic Code(s): N18.30 - Chronic kidney disease, stage 3 unspecified Qualifiers: Chronic kidney disease stage 3 subtype: stage 3a (GFR 45-59) Qualified Code(s): N18.31 - Chronic kidney disease, stage 3a (13) COPD exacerbation: Status: Chronic Code(s): J44.1 - Chronic obstructive pulmonary disease with (acute) exacerbation (14) DVT (deep venous thrombosis): Status: Resolved Code(s): I82.409 - Acute embolism and thrombosis of unspecified deep veins of unspecified lower extremity (15) Aortic valve stenosis: Status: Chronic Code(s): I35.0 - Nonrheumatic aortic (valve) stenosis Qualifiers: Cardiac valve disease etiology: etiology unspecified Qualified Code(s): I35.0 - Nonrheumatic aortic (valve) stenosis (16) History of pulmonary embolism: Status: Chronic Code(s): Z86.711 - Personal history of pulmonary embolism (17) Pulmonary hypertension: Status: Chronic Code(s): I27.20 - Pulmonary hypertension, unspecified Meds Home Medications and Allergies Home Medications ?Medication ?Instructions ?Recorded ?Confirmed ?Type warfarin 5 mg tablet 5 mg PO SUTUWETHSA 06/25/21 03/08/24 History warfarin 5 mg tablet 7.5 mg PO MOFR 12/01/21 03/08/24 History citalopram 20 mg tablet 20 mg PO DAILY dementia 30 days 12/22/22 03/08/24 Rx #90 tabs bumetanide 1 mg tablet 2 mg (2 x 1 mg) PO DAILY #180 tabs 04/13/23 03/08/24 Rx fluticasone fur. 100 mcg-umeclid 1 inh inhalation DAILY 90 days #90 10/07/23 03/08/24 Rx 62.5 mcg-vilant 25 mcg ea inhalat.powder (Trelegy Ellipta) levocetirizine 5 mg tablet 5 mg PO DAILY 10/11/23 03/08/24 History albuterol sulfate 90 mcg/actuation 1 inh inhalation QID PRN shortness 12/01/23 03/08/24 Rx aerosol inhaler of breath or wheezing 90 days #8.5 grams azelastine 137 mcg (0.1 %) nasal 1 spray intranasal BID 90 days #90 12/01/23 03/08/24 Rx spray mL fluticasone propionate 50 2 spray intranasal DAILY 90 days 12/01/23 03/08/24 Rx mcg/actuation nasal #16 grams spray,suspension (Flonase Allergy Relief) empagliflozin 10 mg tablet 10 mg PO DAILY 12/20/23 03/08/24 History (Jardiance) ergocalciferol (vitamin D2) 1,250 1,250 mcg PO Q2W 12/20/23 03/08/24 History mcg (50,000 unit) capsule memantine 10 mg tablet 10 mg PO BID dementia 30 days #60 12/29/23 03/08/24 Rx tabs thiamine HCl (vitamin B1) 100 mg 100 mg PO DAILY #30 tabs 12/29/23 03/08/24 Rx tablet carvedilol 3.125 mg tablet 3.125 mg PO BID 01/10/24 03/08/24 History enoxaparin 120 mg/0.8 mL 120 mg (0.8 mL) SQ Q12H #16 mL 02/09/24 03/08/24 Rx subcutaneous syringe benzonatate 100 mg capsule 100 mg PO BID PRN cough #20 caps 03/02/24 03/08/24 Rx atorvastatin 80 mg tablet 80 mg PO DAILY 03/08/24 03/08/24 History levothyroxine 50 mcg tablet 50 mcg PO DAILY 03/08/24 03/08/24 History levofloxacin 750 mg tablet 750 mg PO DAILY 3 days #3 tabs 03/10/24 Rx Vancomycin HCl [Vancomycin 1000mg 125 mls/hr IV Q24H 03/13/24 Rx vial] 2,000 mg acetaminophen 325 mg tablet 650 mg (2 x 325 mg) PO Q6HP PRN 03/13/24 Rx fever or pain #0 tabs doxycycline hyclate 100 mg 100 mg IV Q12H #0 ea 03/13/24 Rx intravenous powder for solution (Doxy-100) lidocaine 5 % topical patch 1 patch topical Q24H #0 ea 03/13/24 Rx meropenem 1 gram intravenous 1 g IV Q12H #0 ea 03/13/24 Rx solution sodium chloride 3 % for 3 ml inhalation ONCE PRN INDUCE 03/13/24 Rx nebulization SPUTUM COLLECTION #0 mL New Prescriptions to Start Prescriptions: levofloxacin Salbador Townsend Vancomycin HCl [Vancomycin 1000mg vial] 2,000 mg 0.9 % Sodium Chloride [Sod Chlor 0.9% 250mL Bag] 250 ml 125 mls/hr IV Q24H Allergies Allergy/AdvReac Type Severity Reaction Status Date / Time No Known Allergies Allergy Verified 03/02/24 11:09 Discharge Plan Disposition Patient Disposition: Xfer Short-Term Hosp Condition: Fair Discharge Order Discharge Orders: Discharge Order (Routine); Ordered 03/13/24 Ordered By: Campbell Stack Follow up Plan Follow up with: Lidya Douglas PA [Primary Care Provider] - 03/17/24 11:00 am () Skyler Guerra MD [Physician] - 03/17/24 (please call for appointment) Prescriptions/Medication Reconciliation: New levofloxacin 750 mg tablet 750 mg PO DAILY 3 Days Qty: 3 0RF acetaminophen 325 mg Tablet 650 mg PO Q6HP PRN (Reason: fever or pain) Qty: 0 0RF doxycycline hyclate [Doxy-100] 100 mg Recon Soln 100 mg IV Q12H Qty: 0 0RF sodium chloride 3 % Solution For Nebulization 3 ml inhalation ONCE PRN (Reason: INDUCE SPUTUM COLLECTION) Qty: 0 0RF meropenem 1 gram Recon Soln 1 g IV Q12H Qty: 0 0RF lidocaine 5 % Adhesive Patch,Medicated 1 patch topical Q24H Qty: 0 0RF Vancomycin HCl [Vancomycin 1000mg vial] 2000 MG 0.9 % Sodium Chloride [Sod Chlor 0.9% 250mL Bag] 250 ML 125 mls/hr IV Q24H Ordered By: Campbell Stack DNP Last Taken: 03/13/24 18:31 125 mls/hr Continued warfarin 5 mg tablet 5 mg PO SUTUWETHSA Trelemarcel Ellipta 100-62.5-25 mcg blister with device 1 inh inhalation DAILY 90 Days Qty: 90 2RF ergocalciferol (vitamin D2) 1,250 mcg (50,000 unit) capsule 1,250 mcg PO Q2W Patient Comments: TAKE 1 CAPSULE BY MOUTH EVERY TWO WEEKS Jardiance 10 mg tablet 10 mg PO DAILY levocetirizine 5 mg tablet 5 mg PO DAILY Patient Comments: TAKE 1 TABLET BY MOUTH ONCE DAILY DIRECTED FOR ALLERGIES memantine 10 mg tablet 10 mg PO BID 30 Days Qty: 60 5RF thiamine HCl (vitamin B1) 100 mg tablet 100 mg PO DAILY Qty: 30 5RF albuterol sulfate 90 mcg/actuation HFA aerosol inhaler 1 inh IH QID PRN (Reason: shortness of breath or wheezing) 90 Days Qty: 8.5 3RF azelastine 137 mcg (0.1 %) spray,non-aerosol 1 spray intranasal BID 90 Days Qty: 90 3RF Rx Instructions: administer into each nostril fluticasone propionate [Flonase Allergy Relief] 50 mcg/actuation spray,suspension 2 spray intranasal DAILY 90 Days Qty: 16 3RF Rx Instructions: administer into each nostril carvedilol 3.125 mg tablet 3.125 mg PO BID Patient Comments: TAKE 1 TABLET BY MOUTH TWICE DAILY benzonatate 100 mg capsule 100 mg PO BID PRN (Reason: cough) Qty: 20 0RF citalopram 20 mg tablet 20 mg PO DAILY 30 Days Qty: 90 3RF bumetanide 1 mg tablet 2 mg PO DAILY Qty: 180 3RF enoxaparin 120 mg/0.8 mL syringe 120 mg SQ Q12H Qty: 16 0RF Rx Instructions: Start one injection every 12 hours 5 days prior to surgery. No injection on the morning of surgery. Resume both lovenox and warfarin after surgery until INR >2.0 then stop lovenox. atorvastatin 80 mg tablet 80 mg PO DAILY Patient Comments: TAKE 1 TABLET BY MOUTH ONCE DAILY levothyroxine 50 mcg tablet 50 mcg PO DAILY warfarin 5 mg Tablet 7.5 mg PO MOFR Problem Reconciliation Problems Reviewed?: Yes Patient Discharge Instructions ACTIVITY: Continue current activity DIET: NPO Stand Alone Forms: Transfer Record Patient Instructions: DI for Heart Attack, Heart Attack, DI for Pneumonia -- Adult, Coumadin Vitamin K/ Diet Print Language: French Providers Primary Care Provider: Lidya Douglas Admayaan Provider: Naresh Moura Attending Provider: Naresh Moura
--- NOTE | 2024-03-13 23:23 | EXP.EVENT.NO ---
Patient is a 73-year-old male with history of prior splenectomy and thrombophilia, CHF, coronary artery disease, prior non-STEMI, obstructive sleep apnea on CPAP, chronic renal failure, COPD, restrictive lung disease, history of pulmonary embolism on chronic warfarin anticoagulation therapy, moderate aortic stenosis, carotid artery stenosis, pulmonary hypertension. He had presented on 03/07/2024 with several days of progressive shortness of breath and was diagnosed with possible left lower lobe pneumonia on chest imaging and was positive for RSV as well. He was admitted for inpatient management. He was found to have worsening leukocytosis which prompted a CT scan to be done on 03/12/2024. This revealed enlargement and heterogeneity within the left gluteus medius muscle with scattered hyperdensities anteriorly which is felt to be possible phlegmon formation. Consultation was obtained with the general surgeon on-call, Dr. Joshi. He took the patient to the operating room earlier this morning on 03/13/2024 for presumed left gluteal abscess. Patient was found to have complex deep hematoma projecting from the left buttock onto the hip and thigh area which was evacuated to the best of his ability and packed open. I evaluated the patient this afternoon on afternoon rounds and he had some surgical site tenderness and some expected oozing onto the dressing. However, this evening the nursing staff contacted me as the patient had developed numbness and increasing pain with some swelling. Discussion was held with the hospitalist who immediately evaluated the patient. Given the clinical scenario and development of symptoms there was concern for possible developing compartment syndrome. I had recommended transfer to tertiary facility. Currently no orthopedic availability at this facility. He did undergo a CT angiogram which reveals extensive left lower extremity edema. There is a 5.2 x 3.2 x 10 cm low-density rim-enhancing lesion within the quadriceps muscle. This may reflect intramuscular abscess. Surgery at the [facility] asked for me to evaluate the patient prior to them accepting in transfer. Since I had evaluated earlier this afternoon he has shown progressive swelling of the left extremity particularly in the thigh which is now very tense. He does have pain with passive range of motion and gives symptoms of subjective paresthesias, which he describes as numbness , from the thigh distally. He is able to perform active, but limited, dorsiflexion of his foot. There does appear to be a faintly palpable posterior tibial pulse but I am unable to appreciate a definite dorsalis pedis. He does have more significant swelling down to his foot with edema. There is no pain or tenderness in the calf area. Given his clinical symptoms I am concerned for potentially developing compartment syndrome. I am currently unable to evaluate compartment pressures. Even if patient does not have compartment syndrome he does not appear to have source control of sepsis with remaining large intramuscular abscessed hematoma involving the gluteal medius and the quadriceps muscle (anterior compartment). Currently no orthopedic surgery availability at this facility. After clinically assessing the patient I held additional discussion with [facility] trauma service. Given the patient's potential developing compartment syndrome and lack of source control for sepsis [facility] have agreed to accept the patient as a surgical transfer.
--- NOTE | 2024-03-13 23:38 | PC.NURSE ---
Tried to call family to update about pts change in care. No answer.
[2024-03-13 23:49] LABS: Vancomycin,Peak 48.8 ug/ml (11-39)
--- NOTE | 2024-03-14 01:08 | PC.NURSE ---
Hospitalist was at bedside to assess pt. Dr. Saenz was called and came and assessed pt as well. Compartment syndrome suspected. Level of care unavailable at this facility. was called for transfer of pt. Report called to Julia at . EMS called for transfer. Pt left floor at 0050.
== END 2024-03-14 00:50 | disposition short-term general hospital (02) | DRG 987 ==
LOC: ER 16:04 → 2ND 03-08 05:32
PROVIDERS: Emergency Medicine; Internal Medicine; Student in an Organized Health Care Education/Training Program; Surgery; Admitting Provider Internal Medicine Adolescent Medicine; Emergency Provider Emergency Medicine; PCP Student in an Organized Health Care Education/Training Program; Visit Provider Internal Medicine Adolescent Medicine
PROC: 0K9P0ZZ Drainage of Left Hip Muscle, Open Approach (ICD-10-PCS; principal; 2024-03-13 07:00)
DX: J12.1 Respiratory syncytial virus pneumonia (principal); I21.4 Non-ST elevation (NSTEMI) myocardial infarction; I50.33 Acute on chronic diastolic (congestive) heart failure; J96.21 Acute and chronic respiratory failure with hypoxia; M79.A22 Nontraumatic compartment syndrome of left lower extremity; Z68.41 Body mass index [BMI] 40.0-44.9, adult; N17.9 Acute kidney failure, unspecified; J84.9 Interstitial pulmonary disease, unspecified; N18.31 Chronic kidney disease, stage 3a; E66.01 Morbid (severe) obesity due to excess calories; Z79.01 Long term (current) use of anticoagulants; Z79.899 Other long term (current) drug therapy; I35.0 Nonrheumatic aortic (valve) stenosis; I27.20 Pulmonary hypertension, unspecified; Z86.711 Personal history of pulmonary embolism
CPT/HCPCS: 36415; 71045; 71260; 71275; 73706; 74177; 75635; 80053; 80202; 81001; 82550; 82803; 83605; 83735; 83880; 84145; 84443; 84484; 85007; 85025; 85378; 85610; 85651; 86140; 86803; 87040; 87070; 87081; 87086; 87205; 87389; 87633; 93005; 93306; 94640; 94760; 94761; 97163; 97166; 97530; 99252; 99291; J1171; J1650; J1939; J1956; J2185; J2270; J2919; J3010; J3370; J3475; J7620; Q9967

== ENCOUNTER 2024-05-29 07:28 | Outpatient (CLI) | payer MEDICARE, SELFPAY ==
--- NOTE | 2024-05-29 07:39 | NM_ITS ---
FINAL REPORT CLINICAL HISTORY: SOB 7:45AM 35.3 MCI TC DTPA 8:25AM 8.20 MCI TC MAA HAS PRIOR CXR AND CT CHEST FINDINGS: NUCLEAR MEDICINE VENTILATION AND PERFUSION IMAGING TECHNIQUE: V/Q scan is performed utilizing 35.3 technetium 99 M DTPA aerosol and IV administration of 8.20 technetium 99 M MAA. Images were obtained in AP, PA, lateral, and oblique projections. FINDINGS Perfusion images demonstrate no evidence of segmental or subsegmental mismatch perfusion defects. There is congruent distribution of the radiopharmaceutical's on ventilation images. IMPRESSION: Low probability of pulmonary embolism. Reviewed, Interpreted and Dictated by Juan F Posadas MD Transcribed by Mariella Johnston Authenticated and [facility]
[2024-05-29] MEDS: ISOTOPE DTPA(AEROSOL);1 DOSE (UP TO 75 MCI) IV (08:47)
[2024-05-29] MEDS: SODIUM CHLORIDE 0.9% 10ML SYR (RAD ONLY) 10 ML IV (08:47)
[2024-05-29] MEDS: ISOTOPE TC MAA;1 DOE (UP TO 45 MCI) 1 DOSE IV (08:47)
== END 2024-05-29 23:59 | disposition home or self-care (01) ==
LOC: RAD 07:30
PROVIDERS: PCP Internal Medicine Adolescent Medicine; Visit Provider Internal Medicine Pulmonary Disease
DX: R06.09 Other forms of dyspnea (principal)
CPT/HCPCS: 78582; A9540; A9567

== ENCOUNTER 2024-05-31 07:59 | Outpatient (CLI) | payer MEDICARE, SELFPAY ==
[2024-05-31] MEDS: ALBUTEROL 0.083% 2.5 MG/3 ML NEB IH (08:34)
== END 2024-05-31 23:59 | disposition home or self-care (01) ==
LOC: RT 08:00
PROVIDERS: PCP Internal Medicine Adolescent Medicine; Visit Provider Internal Medicine Pulmonary Disease
DX: J44.9 Chronic obstructive pulmonary disease, unspecified (principal); R06.09 Other forms of dyspnea
CPT/HCPCS: 94010; J7613

== ENCOUNTER 2024-06-06 08:02 | Outpatient (CLI) | payer MEDICARE, SELFPAY ==
--- NOTE | 2024-06-06 08:06 | US_ITS ---
FINAL REPORT CLINICAL HISTORY: Right sided abdominal pain COMPARISON: CTA 03/13/2024 FINDINGS: ULTRASOUND ABDOMEN FINDINGS: The liver is unremarkable. The patient is status post splenectomy. There is a large dominant gallstone again noted measuring nearly 5 cm without acute gallbladder disease. No biliary ductal dilatation is identified. Kidneys show no evidence of mass or obstruction. Pancreas is not well visualized. IVC and aorta are grossly unremarkable. There is no obvious fluid collection. IMPRESSION: Unremarkable abdominal ultrasound. Reviewed, Interpreted and Dictated by Juan Alberto Overton MD Transcribed by Danay Smith Authenticated and [facility]
== END 2024-06-06 23:59 | disposition home or self-care (01) ==
LOC: RAD 08:03
PROVIDERS: PCP Internal Medicine Adolescent Medicine; Visit Provider Internal Medicine Adolescent Medicine
DX: R10.9 Unspecified abdominal pain (principal)
CPT/HCPCS: 76700

== ENCOUNTER 2024-06-29 14:17 | Outpatient (CLI) | payer MEDICARE, SELFPAY ==
[2024-06-29 15:11] LABS: Basophils # 0.1 K/mm3 (0-0.2); Basophils % 0.9 % (0.1-2.0); Eosinophils # 0.1 K/mm3 (0.0-0.4); Eosinophils % 0.5 % (0.1-12.0); Hematocrit 42.9 % (42.0-52.0); Hemoglobin 14.2 g/dL (14.1-18.0); Lymphocytes # 4.2 K/mm3 (0.7-4.5); Lymphocytes % 31.3 % (10-50); Mean Corpuscular HGB Conc 33.1 g/dL (31.8-35.4); Mean Corpuscular Hemoglobin 31.9 pg (27.0-31.2); Mean Corpuscular Volume 96.4 fl (80-94); Mean Platelet Volume 11.7 fl (7.4-10.4); Monocytes # 0.4 K/mm3 (0.1-1.0); Monocytes % 3.2 % (1.7-9.3); Neutrophils # 8.5 K/mm3 (1.8-7.8); Neutrophils % 63.7 % (37.0-80.0); Nucleated Red Blood Cells # 0 10^3/uL; Nucleated Red Blood Cells % 0 %; Platelet Count 380 K/mm3 (142-424); Red Blood Count 4.45 M/mm3 (4.60-6.20); Red Cell Distribution Width 14.2 % (11.5-17.5); Red Cell Distribution Width-SD 49.9 fL; White Blood Count 13.3 K/mm3 (4.8-10.8)
--- OUTSIDE RECORDS SUMMARY | 2024-06-29 23:33 | XMS_ITS | Clinical Summary ---
Author Organization [facility] Address [address] [place] [address] Phone Care Team Providers Care Finishing Area Operator Name Role Phone SANIYA WINTERS, MICHELLE Primary Care Provider [phone] Harjinder WINTERS, Yonas Padgett [phone] Reason for Referral Date Encounter Description Provider Reason for Referral 05/29/21 Follow Up Yonas rogers MD Referral To Physician - see pcp for bp Reason for Visit and Chief Complaint The Chief Complaint is: left knee pain Problems Includes: Problems addressed during this encounter and other active Problems All Visits Onset Date Resolved Date Provider Condition S tatus Joint Pain in the Left Knee 10/17/2019 Yonas Grande MD Active Last Documented On 0 10:58AM ; [facility], [facility] Joint Pain, Localized in the Hip 12/07/2016 Jordy Bridges MD Active Last Documented On 7 8:58AM ; [facility] Joint Pain in the Right Knee 12/31/2015 Adrienne Grande MD Active Last Documented On 6 11:28AM ; [facility], [facility] Plan of Treatment NON-SURGICAL PLAN: WEIGHT LOSS CONTINUE PHYSICAL THERAPY REFERRAL TO: - Last Documented On 06/06/2021 11:02AM ; [facility], [facility] DR. [place] FOR RECURRENT HEMARTHROSIS S/P LEFT UKA FOLLOW UP: [address] Sepulveda; AP PELVIS XOA - Last Documented On 06/06/2021 11:02AM ; [facility] Pending Tests Order Diagnosis Results Due Ordering P rovider Lab Orders - CC Aspirations Aerobic/Anaerobic Culture 05/10/21 Yonas Grande MD Last Documented On 1 11:58AM ; [facility], [facility] Lab Orders - CC Aspirations AFB 07/29/20 oYnas Grande MD Last Documented On 1 11:58AM ; [facility], [facility] Lab Orders - CC Aspirations Cell Count with DIFF 07/29/20 Yonas Grande MD Last Documented On 1 11:58AM ; [facility], [facility] Lab Orders - CC Aspirations Crystals 07/29/20 Yonas Grande MD Last Documented On 1 11:58AM ; [facility], [facility] Lab Orders - CC Aspirations Fungal Culture 07/20 Yonas Grande MD Last Documented On 1 11:58AM ; [facility], [facility] Lab Orders - CC Aspirations Aerobic/Anaerobic Culture 01/27/21 Roosevelt Grande MD Last Documented On 1 4:54PM ; [facility], [facility] Referrals To Diagnosis Consult with Vascular Last Documented On 2 11:02AM ; [facility], [facility] Instructions to patient Instructions for patient See PCP for weight management and elevated BP Last Documented On 2 11:13AM ; [facility], [facility] Lose weight Last Documented On 2 11:13AM ; [facility], [facility] Assessments Includes: Assessments from this encounter Findings LEFT KNEE ASPIRATE: WBC 4239, PMNS 6%, NO GROWTH - Last Documented On 06/06/2021 11:02AM ; [facility], [facility] LEFT UKA WITH RECURRENT HEMARTHROSIS. LEFT HIP MODERATE-SEVERE DJD WITH NO IMPROVEMENT OF KNEE PAIN WITH INJECTION. RIGHT UKA DOING WELL. PT NO BENEFIT. - Last Documented On 06/06/2021 11:02AM ; [facility], [facility] Instructions Includes: Instructions from this encounter Instructions to patient Instructions for patient See PCP for weight management and elevated BP Last Documented On 2 11:13AM ; [facility], [facility] Lose weight Last Documented On 2 11:13AM ; [facility], [facility] Medical Equipment - Implanted Devices Includes: Current Devices No Medical Equipment Recorded Medications Includes: Medications discussed during this encounter and other current Medications Current Medications (continue as prescribed) Albuterol Sulfate HFA 108 (9 0 Base) MCG/ACT Inhalation Aerosol Solution 02/08/2022 Provider: Diagnosis: Last Documented On 11:31AM By Alva Fuentes ; [facility], [facility] Warfarin Sodium 5 MG Oral Tablet 01/24/2022 Provider : MICHELLE KOTHARI MD Diagnosis: Last Documented On 11:31AM By Alva Fuentes ; [facility] Bumetanide 1 MG Oral Tablet 01/16/2022 Provider: Diagnosis: Last Documented On 11:31AM By Alva Fuentes ; [facility] Levothyroxine Sodium 50 MCG Oral Tablet 01/12/2022 P rovider: MICHELLE KOTHARI MD Diagnosis: Last Documented On 11:31AM By Alva Fuentes ; [facility], [facility] Memantine HCl 10 MG Oral Tablet 01/10/2022 Provider: MICHELLE KOTHARI MD Diagnosis: Last Documented On 11:31AM By Alva Fuetnes ; [facility], [facility] Fluticasone Propionate 50 MCG/ACT Nasal Suspension 01/2022 Provider: Diagnosis: Last Documented On 11:31AM By Alva Fuentes ; [facility], [facility] Citalopram Hydrobromide 20 MG Oral Tablet 12/25/2021 Provider: MICHELLE KOTHARI MD Diagnosis: Last Documented On 11:31AM By Alva Gonzalez [facility] Citalopram Hydrobromide 20 MG Oral Tablet 12/25/2021 Provider: MICHELLE KOTHARI MD Diagnosis: Last Documented On 11:31AM By Alva Fuentes ; [facility], [facility] Atorvastatin Calcium 40 MG Oral Tablet 12/03/2021 Pr ovider: Diagnosis: Last Documented On 11:31AM By Alva Fuentes ; [facility], [facility] amLODIPine Besylate 5 MG Oral Tablet 12/03/2021 Prov ider: Diagnosis: Last Documented On 11:31AM By Alva Fuentes ; [facility] Spironolactone 25 MG Oral Tablet 12/03/2021 Provider : Diagnosis: Last Documented On 2 11:31AM By Alva Fuentes ; [facility], [facility] Bisoprolol Fumarate 5 MG Oral Tablet 12/03/2021 Prov ider: Diagnosis: Last Documented On 2 11:31AM By Alva Fuentes ; [facility], [facility] Trelegy Ellipta 100-62.5-25 MCG/ACT Inhalation Aerosol Powder Breath Activated 11/28/2021 Provider: Diagnosis: Last Documented On 2 11:31AM By Alva Fuentes ; [facility], [facility] Ipratropium-Albuterol 0.5-2.5 (3) MG/3ML Inhalat ion Solution 11/09/2021 Provider: Diagnosis: Last Documented On 2 11:31AM By Alva Fuentes ; [facility], [facility] Euthyrox 50 MCG Oral Tablet 10/10/2021 Provider: Naresh Moura Diagnosis: Last Documented On 2 11:31AM By Alva Fuentes ; [facility], [facility] Past Medications on file ProAir HFA 108 (90 Base) MCG /ACT Inhalation Aerosol Solution 07/19/2020 - 08/04/2020 Provider: Diagnosis: Last Documented On 1 11:45AM By Kely Paul ; [facility], [facility] MS Contin 15 MG Tablet Extended Release 02/11/2016 - 02/18/2016 Provider: Yonas rogers MD Diagnosis: twice a day Last Documented On 6 10:11AM By Sybil Gage ; [facility] Colace 100 MG Capsule 02/11/2016 - 05/11/2016 Provider : Yonas Grande MD Diagnosis: 1-2 tabs daily NOT TO FILL TILL 02/19/16 Last Documented On 6 10:23AM By Sybil Gage ; [facility], [facility] Keflex 500 MG Capsule 02/11/2016 - 02/14/2016 Provider : Yonas Grande MD Diagnosis: 1 every 6 hours NOT TO FILL TILL 02/19/16 Last Documented On 6 10:23AM By Sybil Gage ; [facility] Mobic 15 MG Tablet 02/11/2016 - 04/11/2016 Provider: Yonas Grande MD Diagnosis: once a day NOT TO FILL TILL 02/19/16 Last Documented On 6 10:23AM By Sybil Gage ; [facility] Neurontin 300 MG Capsule 02/11/2016 - 05/11/2016 Provi bambi: Yonas Grande MD Diagnosis: 1 every bedtime NOT TO FILL TILL 02/19/16 Last Documented On 6 10:23AM By Sybil Gage ; [facility] Zofran 4 MG Tablet 02/11/2016 - 02/21/2016 Provider: Yonas Grande MD Diagnosis: [id number] prn nausea NOT TO FILL TILL 02/19/16 Last Documented On 6 10:23AM By Sybil Gage ; [facility] Percocet 5-325 MG Tablet 02/11/2016 - 02/21/2016 Provi bambi: Yonas Grande MD Diagnosis: 1-2 po q 4-6h PRN PAIN Last Documented On 6 10:11AM By Sybil Gage ; [facility] Percocet 5-325 MG Tablet 01/30/2016 - 02/09/2016 Provi bambi: Yonas Grande MD Diagnosis: 1-2 po q 4-6h PRN PAIN Last Documented On 6 9:13AM By Debo Drake ; [facility] Percocet 5-325 MG Tablet 01/07/2016 - 01/17/2016 Provi bambi: Yonas Grande MD Diagnosis: 1-2 po q 4-6h PRN PAIN Last Documented On 6 9:52AM By Sybil Gage ; [facility] MS Contin 15 MG Tablet, controlled-release 01/07/2016 - 01/14/2016 Provider: Yonas Grande MD Diagnosis: twice a day Last Documented On 6 9:52AM By Sybil Gage ; [facility] Colace 100 MG Capsule, conventional 01/07/2016 - 04/06/2016 Provider: Yonas Grande MD Diagnosis: 1-2 tabs dailyNOT TO FILL TILL 01/10/16 Last Documented On 6 9:55AM By Sybil Gage ; [facility], [facility] Keflex 500 MG Capsule, conventional 01/07/2016 - 01/10/2016 Provider: Yonas Grande MD Diagnosis: 1 every 6 hoursNOT TO FILL TILL 01/10/16 Last Documented On 6 9:55AM By Sybil Gage ; [facility], [facility] Mobic 15 MG Tablet 01/07/2016 - 03/10/2016 Provider: Yonas Grande MD Diagnosis: once a dayNOT TO FILL TILL 01/10/16 Last Documented On 6 9:55AM By Sybil Gage ; [facility], [facility] Neurontin 300 MG Capsule, conventional 01/07/2016 - 04/06/2016 Provider: Yonas Grande MD Diagnosis: 1 every bedtimeNOT TO FILL TILL 01/10/16 Last Documented On 6 9:55AM By Sybil Gage ; [facility], [facility] Zofran 4 MG Tablet 01/07/2016 - 01/17/2016 Provider: Yonas Grande MD Diagnosis: [id number] prn nauseaNOT TO FILL TILL 01/10/16 Last Documented On 6 9:56AM By Sybil Gage ; [facility], [facility] Medications Administered Includes: Administered Medications from this encounter No Administered Medications Recorded Vital Signs Includes: Vital Signs from this encounter Vital Name 05/29/2021 11:36A Blood Pressure Standing (mmHg) 135/66 Pulse Rate-Standing (bpm) 62 Height (in) 68 Weight (lb) 255 Body Mass Index (kg/m2) 38.8 Body Surface Area (m2) 2.3 Note: ALBERTA Last Documented: On 05/29/2021 11:39A M ; [facility], [facility] Results Includes: Results discussed during this encounter No Results Recorded For Specified Dates History of Present Illness Includes: History of Present Illness from this encounter DHAVAL Carrillo is a 70 year old male. - Allergy list reviewed - Problem list reviewed - Medication list reviewed Social History Description Last Updated Not using alcohol 11/28/2020 Last Documented On 2 11:13AM ; [facility] Not a current smoker. 02/06/2020 Last Documented On 2 11:13AM ; [facility] Non-smoker 11/14/2019 Last Documented On 2 11:13AM ; [facility] Caffeine use 08/15/2015 Last Documented On 2 11:13AM ; [facility] No recent change in diet 08/15/2015 Last Documented On 2 11:13AM ; [facility] No tobacco use 08/15/2015 Last Documented On 2 11:13AM ; [facility] Not a current smoker 08/15/2015 Last Documented On 2 11:13AM ; [facility] Not exercising regularly 08/15/2015 Last Documented On 2 11:13AM ; [facility] Not using drugs 08/15/2015 Last Documented On 2 11:13AM ; [facility] Smoking status : Never smoker 08/15/2015 Last Documented On 2 11:13AM ; [facility], [facility] Procedures and Surgical History Includes: Procedures from this encounter Procedures Code Diagnosis Performing Provider Service L ocation Service Date history of orthopedic options: physical therapy Last Documented On 2 11:13AM ; [facility] use of tobacco assessment performed 1000F Last Documented On 2 11:13AM ; [facility] referral to physician see pcp for bp Last Documented On 2 11:13AM ; [facility] Surgical History Last Updated History of appendectomy 08/15/2015 Last Documented On 2 11:13AM ; [facility] History of back surgery 08/15/2015 Last Documented On 2 11:13AM ; [facility] History of hernia repair 08/15/2015 Last Documented On 2 11:13AM ; [facility] History of total hip replacement 016 Last Documented On 2 11:13AM ; [facility] Medical History Includes: Medical History addressed during this encounter Description Last Updated Arthritis 02/06/2020 Last Documented On 2 11:13AM ; [facility] Heartburn / Acid Reflux 02/06/2020 Last Documented On 2 11:13AM ; [facility] History of Blood Clots 02/06/2020 Last Documented On 2 11:13AM ; [facility] History of diverticulitis of colon 02/05 Last Documented On 2 11:13AM ; [facility] History of Rheumatology 02/06/2020 Last Documented On 2 11:13AM ; [facility] Hypertension 02/06/2020 Last Documented On 2 11:13AM ; [facility] Sleep Apnea 02/06/2020 Last Documented On 2 11:13AM ; [facility] Thyroid Disease 02/06/2020 Last Documented On 2 11:13AM ; [facility] A recent immunization for flu 02/06/2020 Last Documented On 2 11:13AM ; [facility] A recent immunization for pneumococcal p neumonia 02/06/2020 Last Documented On 2 11:13AM ; [facility] Appendectomy 02/06/2020 Last Documented On 2 11:13AM ; [facility] Back surgery 02/06/2020 Last Documented On 2 11:13AM ; [facility] Hernia repair 02/06/2020 Last Documented On 2 11:13AM ; [facility] Total knee arthroplasty 02/06/2020 Last Documented On 2 11:13AM ; [facility] blood clots 01/19/2019 Last Documented On 2 11:13AM ; [facility] A recent injection 01/19/2019 Last Documented On 2 11:13AM ; [facility] History of heart disease 01/19/2019 Last Documented On 2 11:13AM ; [facility] Intermittent hypertension 01/19/2019 Last Documented On 2 11:13AM ; [facility] Arthritic joint problems 08/15/2015 Last Documented On 2 11:13AM ; [facility] History of hepatitis 08/15/2015 Last Documented On 2 11:13AM ; [facility] Family History Includes: Family History addressed during this encounter Description Last Updated Stroke / Seizures 02/06/2020 Last Documented On 2 11:13AM ; [facility] Family history of thromboembolic disease 01/19/2019 Last Documented On 2 11:13AM ; [facility] No significant family history 12/07/2016 Last Documented On 2 11:13AM ; [facility] Review of Systems Includes: Review of Systems from this encounter Systemic: Not feeling tired, no recent weight loss, and no recent weight gain. No edema. Head: No headache and no sinus pain. Eyes: No vision problems Lasix Sx, no vision problems, and no glaucomatous visual field defect. Otolaryngeal: No hearing loss and no tinnitus. No nasal symptoms. Cardiovascular: No chest pain or discomfort and no palpitations. Pulmonary: No daytime asthma symptoms, no cough, and no chronic cough. No wheezing. Gastrointestinal: No heartburn and no abdominal pain. Endocrine: No hot flashes and no muscle weakness. Hematologic: Easy bleeding. No tendency for easy bruising. Musculoskeletal: Lower back pain. No soft tissue swelling. Pain localized to one or more joints. Neurological: No dizziness, no convulsions, and no numbness. Psychological: No anxiety, no emotional lability, no depression, and no insomnia. Not crying for no reason. Skin: No dry skin, no rash, and no ulcers. Allergic and Immunologic: No complaint of seasonal allergic reaction. reviewed on 03/06/2021 Mental Status Includes: Mental Status from this encounter Description No anxiety Functional Status Includes: Functional Status from this encounter No Functional Status Recorded Physical Exam Includes: Physical Exam from this encounter Allergies Includes: Active Allergies No Known Allergies Encounters Encounter Provider Location Date Check-In Time Check-Out Time Diagnosis Follow Up Yonas Grande MD [facility] 03/10/20 22 10:51AM 12:16PM Insurance Includes: Active Insurance Policies Plan Name Member ID Group # Subscriber Relationship Effect brandy Dates 1 - Medicare Part B [facility] [id number] Reji Carrillo Self 09/19/2017 - Unknown 2 - [employer] Me [id number] Reji Carrillo Self 09/19/2017 - Unknown Clinical Notes Includes: Clinical Notes from this encounter No Clinical Notes Recorded
--- OUTSIDE RECORDS SUMMARY | 2024-06-29 23:33 | XMS_ITS ---
Author Organization [facility] Address [address] [place] [address] Phone Care Team Providers Care Edger Machine Helper Name Role Phone SANIYA WINTERS, MICHELLE Primary Care Provider [phone] Harjinder WINTERS, Yonas Padgett [phone] Reason for Referral Date Encounter Description Provider Reason for Referral 05/29/21 Follow Up Yonas rogers MD Referral To Physician - see pcp for bp 03/06/21 Follow Up Rodrigo Daniels PA-C Refer ral To Physician - see pcp for bp 01/02/21 Follow Up Yonas rogers MD Referral To Physician - see pcp for bp 11/28/20 Follow Up Yonas rogers MD Referral To Physician - see pcp for bp 08/01/20 Follow Up Trell Bridges MD Referral To Physician - see pcp for bp 07/19/20 NEW PROBLEM/EST PT Trell Bridges MD Refer ral To Physician - see pcp for bp 07/04/20 Follow Up Yonas rogers MD Referral To Physician - see pcp for bp 06/21/20 INJECTION Yonas rogers MD Referral To Physician - see pcp for bp 05/30/20 Follow Up Yonas rogers MD Referral To Physician - see pcp for bp 02/22/20 Follow Up Yonas rogers MD Referral To Physician - see pcp for bp 02/13/20 Follow Up Yonas rogers MD Referral To Physician - for low bp 02/06/20 Follow Up Yonas rogers MD Referral To Physician - for low bp Problems Includes: Active, inactive, and resolved Problems All Visits Onset Date Resolved Date Provider Condition S tatus Joint Pain in the Left Knee 10/17/2019 Yonas Grande MD Active Last Documented On 0 10:58AM ; [facility] Joint Pain, Localized in the Hip 12/07/2016 Jordy Bridges MD Active Last Documented On 7 8:58AM ; [facility] Joint Pain in the Right Knee 12/31/2015 Adrienne Grande MD Active Last Documented On 6 11:28AM ; [facility] Plan of Treatment Pending Tests Order Diagnosis Results Due Ordering P rovider Lab Orders - CC Aspirations Aerobic/Anaerobic Culture 07/29/20 Yonas Grande MD Last Documented On 1 11:58AM ; [facility] Lab Orders - CC Aspirations AFB 07/29/20 Yonas Grande MD Last Documented On 1 11:58AM ; [facility] Lab Orders - CC Aspirations Cell Count with DIFF 07/29/20 Yonas Grande MD Last Documented On 1 11:58AM ; [facility] Lab Orders - CC Aspirations Crystals 07/29/20 Yonas Grande MD Last Documented On 1 11:58AM ; [facility] Lab Orders - CC Aspirations Fungal Culture 07/20 Yonas Grande MD Last Documented On 1 11:58AM ; [facility] Lab Orders - CC Aspirations Aerobic/Anaerobic Culture 01/27/21 Roosevelt Grande MD Last Documented On 1 4:54PM ; [facility] Radiology - MRI MRI Lumbar Spine 02/23/22 Colten Figueroa PA-C Last Documented On 2 11:30AM ; [facility] Referrals To Diagnosis Consult with Vascular Last Documented On 2 11:02AM ; [facility] Instructions to patient Lose weight Last Documented On 2 10:07AM ; [facility] Lose weight Last Documented On 2 11:03AM ; [facility] Instructions for patient See PCP for weight management and elevated BP Last Documented On 2 11:13AM ; [facility] Lose weight Last Documented On 2 11:13AM ; [facility] Instructions for patient See PCP for weight management and elevated BP Last Documented On 1 11:06AM ; [facility] Lose weight Last Documented On 1 11:06AM ; [facility] Instructions for patient See PCP for weight management and elevated BP Last Documented On 1 10:14AM ; [facility] Lose weight Last Documented On 1 10:14AM ; [facility] Instructions for patient See PCP for weight management and elevated BP Last Documented On 1 10:53AM ; [facility] Lose weight Last Documented On 1 10:53AM ; [facility] Instructions for patient See PCP for weight management and elevated BP Last Documented On 1 8:58AM ; [facility] Lose weight Last Documented On 1 8:58AM ; [facility] Instructions for patient See PCP for weight management and elevated BP Last Documented On 1 9:11AM ; [facility] Lose weight Last Documented On 1 9:12AM ; [facility] Instructions for patient See PCP for weight management and elevated BP Last Documented On 1 10:47AM ; [facility] Lose weight Last Documented On 1 10:47AM ; [facility] Instructions for patient See PCP for weight management and elevated BP Last Documented On 1 7:58AM ; [facility] Lose weight Last Documented On 1 7:58AM ; [facility] Instructions for patient See PCP for weight management and elevated BP Last Documented On 1 10:48AM ; [facility] Lose weight Last Documented On 1 10:48AM ; [facility] Instructions for patient See PCP for weight management and elevated BP Last Documented On 0 11:22AM ; [facility] Lose weight Last Documented On 0 11:22AM ; [facility] Instructions for patient See PCP for weight management and elevated BP Last Documented On 0 10:23AM ; [facility] Lose weight Last Documented On 0 10:23AM ; [facility] Instructions for patient See PCP for weight management and elevated BP Last Documented On 0 10:42AM ; [facility] Lose weight Last Documented On 0 10:42AM ; [facility] Instructions for patient See PCP for weight management and elevated BP Last Documented On 0 12:12PM ; [facility] Instructions for patient See PCP for weight management and elevated BP Last Documented On 0 9:01AM ; [facility] Instructions for patient See PCP for weight management and elevated BP Last Documented On 0 8:36AM ; [facility] Instructions for patient See PCP for weight management and elevated BP Last Documented On 0 11:09AM ; [facility] Instructions for patient See PCP for weight management and elevated BP Last Documented On 9 3:08PM ; [facility] Instructions for patient See PCP for weight management and elevated BP Last Documented On 9 10:23AM ; [facility] Instructions for patient See PCP for weight management and elevated BP Last Documented On 7 1:47PM ; [facility] Instructions for patient See PCP for weight management and elevated BP Last Documented On 7 9:06AM ; [facility] Instructions for patient See PCP for weight management and elevated BP Last Documented On 7 1:42PM ; [facility] Instructions for patient See PCP for weight management and elevated BP Last Documented On 7 8:10AM ; [facility] Instructions for patient See PCP for weight management and elevated BP Last Documented On 7 8:29AM ; [facility] Instructions for patient See PCP for weight management and elevated BP Last Documented On 7 8:58AM ; [facility] Instructions for patient See PCP for weight management and elevated BP Last Documented On 6 8:54AM ; [facility] Instructions for patient see pcp for blood pressure & wt mgmt Last Documented On 6 8:43AM ; [facility] Lose weight Last Documented On 6 8:43AM ; [facility] Instructions for patient see pcp for blood pressure & wt mgmt Last Documented On 6 10:38AM ; [facility] Lose weight Last Documented On 6 10:39AM ; [facility] Instructions for patient see pcp for blood pressure & wt mgmt Last Documented On 6 8:39AM ; [facility] Instructions for patient see pcp for blood pressure & wt mgmt Last Documented On 6 8:01AM ; [facility] Instructions for patient see pcp for blood pressure & wt mgmt Last Documented On 6 8:59AM ; [facility] Assessments Includes: Assessments for all patient encounters No Assessments Recorded Instructions Includes: Instructions for all patient encounters Instructions to patient Lose weight Last Documented On 2 10:07AM ; [facility] Lose weight Last Documented On 2 11:03AM ; [facility] Instructions for patient See PCP for weight management and elevated BP Last Documented On 2 11:13AM ; [facility] Lose weight Last Documented On 2 11:13AM ; [facility] Instructions for patient See PCP for weight management and elevated BP Last Documented On 1 11:06AM ; [facility] Lose weight Last Documented On 1 11:06AM ; [facility] Instructions for patient See PCP for weight management and elevated BP Last Documented On 1 10:14AM ; [facility] Lose weight Last Documented On 1 10:14AM ; [facility] Instructions for patient See PCP for weight management and elevated BP Last Documented On 1 10:53AM ; [facility] Lose weight Last Documented On 1 10:53AM ; [facility] Instructions for patient See PCP for weight management and elevated BP Last Documented On 1 8:58AM ; [facility] Lose weight Last Documented On 1 8:58AM ; [facility] Instructions for patient See PCP for weight management and elevated BP Last Documented On 1 9:11AM ; [facility] Lose weight Last Documented On 1 9:12AM ; [facility] Instructions for patient See PCP for weight management and elevated BP Last Documented On 1 10:47AM ; [facility] Lose weight Last Documented On 1 10:47AM ; [facility] Instructions for patient See PCP for weight management and elevated BP Last Documented On 1 7:58AM ; [facility] Lose weight Last Documented On 1 7:58AM ; [facility] Instructions for patient See PCP for weight management and elevated BP Last Documented On 1 10:48AM ; [facility] Lose weight Last Documented On 1 10:48AM ; [facility] Instructions for patient See PCP for weight management and elevated BP Last Documented On 0 11:22AM ; [facility] Lose weight Last Documented On 0 11:22AM ; [facility] Instructions for patient See PCP for weight management and elevated BP Last Documented On 0 10:23AM ; [facility] Lose weight Last Documented On 0 10:23AM ; [facility] Instructions for patient See PCP for weight management and elevated BP Last Documented On 0 10:42AM ; [facility] Lose weight Last Documented On 0 10:42AM ; [facility] Instructions for patient See PCP for weight management and elevated BP Last Documented On 0 12:12PM ; [facility] Instructions for patient See PCP for weight management and elevated BP Last Documented On 0 9:01AM ; [facility] Instructions for patient See PCP for weight management and elevated BP Last Documented On 0 8:36AM ; [facility] Instructions for patient See PCP for weight management and elevated BP Last Documented On 0 11:09AM ; [facility] Instructions for patient See PCP for weight management and elevated BP Last Documented On 9 3:08PM ; [facility] Instructions for patient See PCP for weight management and elevated BP Last Documented On 9 10:23AM ; [facility] Instructions for patient See PCP for weight management and elevated BP Last Documented On 7 1:47PM ; [facility] Instructions for patient See PCP for weight management and elevated BP Last Documented On 7 9:06AM ; [facility] Instructions for patient See PCP for weight management and elevated BP Last Documented On 7 1:42PM ; [facility] Instructions for patient See PCP for weight management and elevated BP Last Documented On 7 8:10AM ; [facility] Instructions for patient See PCP for weight management and elevated BP Last Documented On 7 8:29AM ; [facility] Instructions for patient See PCP for weight management and elevated BP Last Documented On 7 8:58AM ; [facility] Instructions for patient See PCP for weight management and elevated BP Last Documented On 6 8:54AM ; [facility] Instructions for patient see pcp for blood pressure & wt mgmt Last Documented On 6 8:43AM ; [facility] Lose weight Last Documented On 6 8:43AM ; [facility] Instructions for patient see pcp for blood pressure & wt mgmt Last Documented On 6 10:38AM ; [facility] Lose weight Last Documented On 6 10:39AM ; [facility] Instructions for patient see pcp for blood pressure & wt mgmt Last Documented On 6 8:39AM ; [facility] Instructions for patient see pcp for blood pressure & wt mgmt Last Documented On 6 8:01AM ; [facility] Instructions for patient see pcp for blood pressure & wt mgmt Last Documented On 6 8:59AM ; [facility] Medical Equipment - Implanted Devices Includes: Current and historical Devices No Medical Equipment Recorded Medications Includes: Current and historical Medications Current Medications (continue as prescribed) Albuterol Sulfate HFA 108 (9 0 Base) MCG/ACT Inhalation Aerosol Solution 02/08/2022 Provider: Diagnosis: Last Documented On 2 11:31AM By Alva Fuentes ; [facility] Warfarin Sodium 5 MG Oral Tablet 01/24/2022 Provider : MICHELLE KOTHARI MD Diagnosis: Last Documented On 11:31AM By Alva Fuentes ; [facility] Bumetanide 1 MG Oral Tablet 01/16/2022 Provider: Diagnosis: Last Documented On 11:31AM By Alva Fuentes ; [facility] Levothyroxine Sodium 50 MCG Oral Tablet 01/12/2022 P rovider: MICHELLE KOTHARI MD Diagnosis: Last Documented On 2 11:31AM By Alva Fuentes ; [facility] Memantine HCl 10 MG Oral Tablet 01/10/2022 Provider: MICHELLE KOTHARI MD Diagnosis: Last Documented On 11:31AM By Alva Fuentes ; [facility] Fluticasone Propionate 50 MCG/ACT Nasal Suspension 01/2022 Provider: Diagnosis: Last Documented On 11:31AM By Alva Gonzalez [facility] Citalopram Hydrobromide 20 MG Oral Tablet 12/25/2021 Provider: MICHELLE KOTHARI MD Diagnosis: Last Documented On 2 11:31AM By Alva Gonzalez [facility] Citalopram Hydrobromide 20 MG Oral Tablet 12/25/2021 Provider: MICHELLE KOTHARI MD Diagnosis: Last Documented On 2 11:31AM By Alva Fuentes ; [facility] Atorvastatin Calcium 40 MG Oral Tablet 12/03/2021 Pr ovider: Diagnosis: Last Documented On 2 11:31AM By Alva Fuentes ; [facility] amLODIPine Besylate 5 MG Oral Tablet 12/03/2021 Prov ider: Diagnosis: Last Documented On 11:31AM By Alva Fuentes ; [facility] Spironolactone 25 MG Oral Tablet 12/03/2021 Provider : Diagnosis: Last Documented On 11:31AM By Alva Fuentes ; [facility] Bisoprolol Fumarate 5 MG Oral Tablet 12/03/2021 Prov ider: Diagnosis: Last Documented On 11:31AM By Alva Fuentes ; [facility] Trelegy Ellipta 100-62.5-25 MCG/ACT Inhalation Aerosol Powder Breath Activated 11/28/2021 Provider: Diagnosis: Last Documented On 11:31AM By Alva Fuentes ; [facility] Ipratropium-Albuterol 0.5-2.5 (3) MG/3ML Inhalat ion Solution 11/09/2021 Provider: Diagnosis: Last Documented On 11:31AM By Alva Fuentes ; [facility] Euthyrox 50 MCG Oral Tablet 10/10/2021 Provider: Naresh Moura Diagnosis: Last Documented On 11:31AM By Alva Fuentes ; [facility] Past Medications on file Mucinex DM 30-600 MG Oral Ta blet Extended Release 12 Hour 07/19/2020 - 02/09/2022 Provider: Diagnosis: Last Documented On 11:31AM By Alva Fuentes ; [facility] Omeprazole 40 MG Oral Capsule Delayed Release 07/20/19 - 02/09/2022 Provider: Diagnosis: Last Documented On 11:31AM By Alva Fuentes ; [facility] Propranolol HCl ER 80 MG Ora l Capsule Extended Release 24 Hour 07/19/2020 - 02/09/2022 Provider: Diagnosis: Last Documented On 11:31AM By Alva Fuentes ; [facility] Rosuvastatin Calcium 20 MG Oral Tablet 07/19/2020 - Provider: Diagnosis: Last Documented On 11/21/202 2 11:31AM By Alva Fuentes ; [facility] CVS Super B Complex/C Oral Tablet 07/19/2020 - 022 Provider: Diagnosis: Last Documented On 2 11:31AM By Alva Fuentes ; [facility] Folic Acid 400 MCG Oral Tablet 07/19/2020 - 02/09/2022 Provider: Diagnosis: Last Documented On 2 11:31AM By Alva Fuentes ; [facility] CVS Zinc 50 MG Oral Tablet 07/19/2020 - 02/09/2022 Pro vider: Diagnosis: Last Documented On 2 11:31AM By Alva Fuentes ; [facility] CVS Vitamin D3 25 MCG (1000 UT) Oral Tablet Chewable 07/19/2020 - 02/09/2022 Provider: Diagnosis: Last Documented On 2 11:31AM By Alva Fuentes ; [facility] Fluzone High-Dose Quadrivale nt 0.7 ML Intramuscular Suspension Prefilled Syringe 07/19/2020 - 02/09/2022 Provider: Diagnosis: Last Documented On 2 11:31AM By Alva Fuentes ; [facility] levoFLOXacin 500 MG Oral Tablet 07/19/2020 - Provider: Diagnosis: Last Documented On 2 11:31AM By Alva Fuentes ; [facility] ProAir HFA 108 (90 Base) MCG /ACT Inhalation Aerosol Solution 07/19/2020 - 08/04/2020 Provider: Diagnosis: Last Documented On 1 11:45AM By Kely Paul ; [facility] Aspirin 81 MG Oral Tablet Chewable 07/19/2020 - 2021 Provider: Diagnosis: Last Documented On 2 11:31AM By Alva Fuentes ; [facility] Breo Ellipta 200-25 MCG/INH Inhalation Aerosol Powder Breath Activated 07/19/2020 - 02/09/2022 Provider: Diagnosis: Last Documented On 2 11:31AM By Alva Fuentes ; [facility] hydroCHLOROthiazide 12.5 MG Oral Tablet 07/19/2020 - 1 04/11/2021 Provider: Diagnosis: Last Documented On 2 11:31AM By Alva Fuentes ; [facility] Folate 400 MCG Oral Tablet 02/06/2020 - 07/19/2020 Pro vider: Diagnosis: Last Documented On 11:47AM By Kely Paul ; [facility] Anoro Ellipta 62.5-25 MCG/IN H Inhalation Aerosol Powder Breath Activated 10/31/2019 - 07/19/2020 Provider: Diagnosis: Last Documented On 11:47AM By Kely Paul ; [facility] CVS Fluticasone Propionate 5 0 MCG/ACT Nasal Suspension 10/17/2019 - 11/14/2019 Provider: Diagnosis: Last Documented On 0 9:09AM By Tona Holdne ; [facility] Zolate 1-3775 MG-UNIT Oral Capsule 10/17/2019 - 2020 Provider: Diagnosis: Last Documented On 1 11:47AM By Kely Paul ; [facility] Daily Multivitamin Oral Capsule 10/17/2019 - Provider: Diagnosis: Last Documented On 11:47AM By Kely Paul ; [facility] Pantoprazole Sodium 40 MG Or al Tablet Delayed Release 10/17/2019 - 07/19/2020 Provider: Diagnosis: Last Documented On 11:47AM By Kely Paul ; [facility] Spironolactone 50 MG Oral Tablet 10/17/2019 - 07/20/19 21 Provider: Diagnosis: Last Documented On 11:47AM By Kely Paul ; [facility] Furosemide 80 MG Oral Tablet 10/17/2019 - 07/19/2020 P rovider: Diagnosis: Last Documented On 11:47AM By Kely Paul ; [facility] Euthyrox 50 MCG Oral Tablet 10/17/2019 - 07/19/2020 Pr ovider: Diagnosis: Last Documented On 11:47AM By Kely Paul ; [facility] Vitamin C 500 MG Oral Tablet 01/13/2019 - 07/19/2020 P rovider: Diagnosis: Last Documented On 11:46AM By Kely Paul ; [facility] Vitamin B1 100 MG Oral Tablet 01/13/2019 - 07/19/2020 Provider: Diagnosis: Last Documented On 1 11:47AM By Kely Paul ; [facility] Folic Acid 1 MG Oral Tablet 01/13/2019 - 10/17/2019 Pr ovider: Diagnosis: Last Documented On 0 11:07AM By Tona Holden ; [facility] Loratadine 10 MG Oral Tablet 01/13/2019 - 07/19/2020 P rovider: Diagnosis: Last Documented On 11:47AM By Kely Paul ; [facility] Xarelto 20 MG Oral Tablet 01/02/2019 - 07/19/2020 Prov ider: Diagnosis: Last Documented On 11:46AM By Kely Paul ; [facility] Spiriva HandiHaler 18 MCG Inhalation Capsule 9 - 07/19/2020 Provider: Diagnosis: Last Documented On 11:46AM By Kely Paul ; [facility] Breo Ellipta 100-25 MCG/INH Inhalation Aerosol Powder Breath Activated 12/30/2018 - 11/14/2019 Provider: MICHELLE Maxwell Diagnosis: Last Documented On 0 9:09AM By Tona Holden ; [facility] Bisoprolol Fumarate 5 MG Oral Tablet 12/30/2018 - 06/22 Provider: Diagnosis: Last Documented On 1 11:46AM By Kely Paul ; [facility] Atorvastatin Calcium 20 MG Oral Tablet 12/29/2018 - Provider: Diagnosis: Last Documented On 1 11:46AM By Kely Paul ; [facility] Spironolactone 25 MG Oral Tablet 12/05/2018 - 10/17/19 Provider: Diagnosis: Last Documented On 0 11:05AM By Tona Holden ; [facility] Furosemide 40 MG Oral Tablet 11/18/2018 - 10/17/2019 Hayley morales: Diagnosis: Last Documented On 0 11:05AM By Tona Holden ; [facility] ProAir HFA 108 (90 Base) MCG /ACT Inhalation Aerosol Solution 11/04/2018 - 07/19/2020 Provider: Diagnosis: Last Documented On 1 11:45AM By Kely Paul ; [facility] Citalopram Hydrobromide 20 M G Oral Tablet 10/31/2018 - 07/19/2020 Provider: MICHELLE Maxwell Diagnosis: Last Documented On 1 11:46AM By Kely Paul ; [facility] Memantine HCl 10 MG Oral Tablet 10/31/2018 - Provider: MICHELLE KOTHARI MD Diagnosis: Last Documented On 1 11:46AM By Kely Paul ; [facility] amLODIPine Besylate 5 MG Ora l Tablet 10/17/2018 - 07/19/2020 Provider: MICHELLE Maxwell Diagnosis: Last Documented On 1 11:46AM By Kely Paul ; [facility] MS Contin 15 MG Tablet Extended Release 02/11/2016 - 02/18/2016 Provider: Yonas rogers MD Diagnosis: twice a day Last Documented On 6 10:11AM By Sybil Gage ; [facility] Colace 100 MG Capsule 02/11/2016 - 05/11/2016 Provider : Yonas Grande MD Diagnosis: 1-2 tabs daily NOT TO FILL TILL 02/19/16 Last Documented On 6 10:23AM By Sybil Gage ; [facility] Keflex 500 MG Capsule 02/11/2016 - 02/14/2016 Provider : Yonas Grande MD Diagnosis: 1 every 6 hours NOT TO FILL TILL 02/19/16 Last Documented On 6 10:23AM By Sybil Gage ; [facility] Mobic 15 MG Tablet 02/11/2016 - 04/11/2016 Provider: Yonas Grande MD Diagnosis: once a day NOT TO FILL TILL 02/19/16 Last Documented On 6 10:23AM By Sybil Gage ; [facility] Neurontin 300 MG Capsule 02/11/2016 - 05/11/2016 Provi bambi: Yonas Grande MD Diagnosis: 1 every bedtime NOT TO FILL TILL 02/19/16 Last Documented On 6 10:23AM By Sybil Gage ; [facility] Zofran 4 MG Tablet 02/11/2016 - 02/21/2016 Provider: Yonas Grande MD Diagnosis: [id number] prn nausea NOT TO FILL TILL 02/19/16 Last Documented On 6 10:23AM By Sybil Gage ; [facility] Percocet 5-325 MG Tablet 02/11/2016 - 02/21/2016 Provi bambi: Yonas Grande MD Diagnosis: 1-2 po q 4-6h PRN PAIN Last Documented On 6 10:11AM By Sybil Gage ; [facility] Percocet 5-325 MG Tablet 01/30/2016 - 02/09/2016 Provi bambi: Yonas Grande MD Diagnosis: 1-2 po q 4-6h PRN PAIN Last Documented On 6 9:13AM By Debo Drake ; [facility] Percocet 5-325 MG Tablet 01/07/2016 - 01/17/2016 Provi bambi: Yonas Grande MD Diagnosis: 1-2 po q 4-6h PRN PAIN Last Documented On 6 9:52AM By Sybil Gage ; [facility] MS Contin 15 MG Tablet, controlled-release 01/07/2016 - 01/14/2016 Provider: Yonas Grande MD Diagnosis: twice a day Last Documented On 6 9:52AM By Sybil Gage ; [facility] Colace 100 MG Capsule, conventional 01/07/2016 - 04/06/2016 Provider: Yonas Grande MD Diagnosis: 1-2 tabs dailyNOT TO FILL TILL 10/21/16 Last Documented On 6 9:55AM By Sybil Gage ; [facility] Keflex 500 MG Capsule, conventional 01/07/2016 - 01/10/2016 Provider: Yonas Grande MD Diagnosis: 1 every 6 hoursNOT TO FILL TILL 01/10/16 Last Documented On 6 9:55AM By Sybil Gage ; [facility] Mobic 15 MG Tablet 01/07/2016 - 03/10/2016 Provider: Yonas Grande MD Diagnosis: once a dayNOT TO FILL TILL 01/10/16 Last Documented On 6 9:55AM By Sybil Gage ; [facility] Neurontin 300 MG Capsule, conventional 01/07/2016 - 04/06/2016 Provider: Yonas Grande MD Diagnosis: 1 every bedtimeNOT TO FILL TILL 01/10/16 Last Documented On 6 9:55AM By Sybil Gage ; [facility] Zofran 4 MG Tablet 01/07/2016 - 01/17/2016 Provider: Yonas Grande MD Diagnosis: [id number] prn nauseaNOT TO FILL TILL 01/10/16 Last Documented On 6 9:56AM By Sybil Gage ; [facility] AmLODIPine Besylate 5 MG Tablet 06/18/2015 - 9 Provider: Diagnosis: Last Documented On 9 4:23PM By Carol Veloz ; [facility] Oxycontin 15 Tablet Soluble 06/18/2015 - 01/13/2019 Pr ovider: Diagnosis: Last Documented On 9 4:23PM By Carol Veloz ; [facility] Diclofenac Sodium 75 MG Tablet Delayed Release 0 06/18/2015 - 01/13/2019 Provider: Diagnosis: Last Documented On 9 4:23PM By Carol Veloz ; [facility] Neurontin 800 MG Tablet 06/18/2015 - 01/13/2019 Provid er: Diagnosis: Last Documented On 9 4:23PM By Carol Veloz ; [facility] Methocarbamol 750 MG Tablet 06/18/2015 - 01/13/2019 Pr ovider: Diagnosis: Last Documented On 9 4:23PM By Carol Veloz ; [facility] Vitamin D3 1000 UNIT Capsule 06/18/2015 - 01/13/2019 P rojujuder: Diagnosis: Last Documented On 9 4:23PM By Carol Veloz ; [facility] Lisinopril 5 MG Tablet 06/18/2015 - 06/18/2015 Provide r: Diagnosis: Last Documented On 6 9:07AM By Laura Moreno ; [facility] Medications Administered Includes: Administered Medications in patient's chart No Administered Medications Recorded Results Includes: Results from 06/30/2023 through 06/29/2024 No Results Recorded For Specified Dates History of Present Illness History of Present Illness not supported for this document type No History of Present Illness Recorded Social History Description Last Updated Tobacco non-user 02/09/2022 Last Documented On 3 11:23AM ; [facility] No recent change in diet 02/09/2022 Last Documented On 3 11:23AM ; [facility] Not a current smoker. 02/09/2022 Last Documented On 3 11:23AM ; [facility] Not using alcohol 11/28/2020 Last Documented On 1 4:54PM ; [facility] Not a current smoker. 02/06/2020 Last Documented On 0 4:28PM ; [facility] Non-smoker 11/14/2019 Last Documented On 0 11:27AM ; [facility] Caffeine use 08/15/2015 Last Documented On 6 11:26AM ; [facility] No recent change in diet 08/15/2015 Last Documented On 6 11:26AM ; [facility] No tobacco use 08/15/2015 Last Documented On 6 11:26AM ; [facility] Not a current smoker 08/15/2015 Last Documented On 6 11:26AM ; [facility] Not exercising regularly 08/15/2015 Last Documented On 6 11:26AM ; [facility] Not using drugs 08/15/2015 Last Documented On 6 11:26AM ; [facility] Smoking status : Never smoker 08/15/2015 Last Documented On 6 11:26AM ; [facility] Procedures and Surgical History Surgical History Last Updated History of appendectomy 08/15/2015 Last Documented On 6 11:26AM ; [facility] History of back surgery 08/15/2015 Last Documented On 6 11:26AM ; [facility] History of hernia repair 08/15/2015 Last Documented On 6 11:26AM ; [facility] History of total hip replacement 016 Last Documented On 6 11:26AM ; [facility] Medical History Includes: Medical History in patient's chart Description Last Updated Arthritis 02/06/2020 Last Documented On 0 4:28PM ; [facility] Heartburn / Acid Reflux 02/06/2020 Last Documented On 0 4:28PM ; [facility] History of Blood Clots 02/06/2020 Last Documented On 0 4:28PM ; [facility] History of diverticulitis of colon 02/05 Last Documented On 0 4:28PM ; [facility] History of Rheumatology 02/06/2020 Last Documented On 0 4:28PM ; [facility] Hypertension 02/06/2020 Last Documented On 0 4:28PM ; [facility] Sleep Apnea 02/06/2020 Last Documented On 0 4:28PM ; [facility] Thyroid Disease 02/06/2020 Last Documented On 0 4:28PM ; [facility] A recent immunization for flu 02/06/2020 Last Documented On 0 4:28PM ; [facility] A recent immunization for pneumococcal p neumonia 02/06/2020 Last Documented On 0 4:28PM ; [facility] Appendectomy 02/06/2020 Last Documented On 0 4:28PM ; [facility] Back surgery 02/06/2020 Last Documented On 0 4:28PM ; [facility] Hernia repair 02/06/2020 Last Documented On 0 4:28PM ; [facility] Total knee arthroplasty 02/06/2020 Last Documented On 0 4:28PM ; [facility] blood clots 01/19/2019 Last Documented On 0 2:42PM ; [facility] A recent injection 01/19/2019 Last Documented On 0 2:42PM ; [facility] History of heart disease 01/19/2019 Last Documented On 0 2:42PM ; [facility] Intermittent hypertension 01/19/2019 Last Documented On 0 2:42PM ; [facility] Arthritic joint problems 08/15/2015 Last Documented On 6 11:26AM ; [facility] History of hepatitis 08/15/2015 Last Documented On 6 11:26AM ; [facility] Family History Includes: Family History in patient's chart Description Last Updated Stroke / Seizures 02/06/2020 Last Documented On 0 4:28PM ; [facility] Family history of thromboembolic disease 01/19/2019 Last Documented On 0 2:42PM ; [facility] No significant family history 12/07/2016 Last Documented On 7 2:40PM ; [facility] Review of Systems Review of Systems not supported for this document type No Review of Systems Recorded Mental Status Description No anxiety Functional Status No Functional Status Recorded Physical Exam Physical Exam not supported for this document type No Physical Exam Recorded Immunizations Includes: Immunizations in patient's chart Vaccine Dose # Date Site Reaction(s) Status Source Influenza 1 12/21/2019 Complete (Reported) Patient Last Documented On 0 11:33AM ; [facility] PCV (Pneumovax 23) 1 12/20/2018 Complete ( Reported) Patient Last Documented On 0 11:33AM ; [facility] Allergies Includes: Active, inactive, and resolved Allergies No Known Allergies Insurance Includes: Active Insurance Policies Plan Name Member ID Group # Subscriber Relationship Effect brandy Dates 1 - Medicare Part B [facility] [id number] Reji Carrillo Self 09/19/2017 - Unknown 2 - [employer] [id number] Reji Carrillo Self 09/19/2017 - Unknown Clinical Notes Includes: Signed Clinical Notes starting from 03/05/2022 No Clinical Notes Recorded
--- OUTSIDE RECORDS SUMMARY | 2024-06-29 23:33 | XMS_ITS | Clinical Summary ---
Author Organization [facility] Address [address] [place] [address] Phone Care Team Providers Care Supervisor Denture Department Name Role Phone SANIYA WINTERS, MICHELLE Primary Care Provider [phone] Harjinder WINTERS, Yonas Padgett [phone] Reason for Visit and Chief Complaint The Chief Complaint is: Lower back pain Problems Includes: Problems addressed during this encounter and other active Problems All Visits Onset Date Resolved Date Provider Condition S tatus Joint Pain in the Left Knee 10/17/2019 Yonas Grande MD Active Last Documented On 0 10:58AM ; [facility] Joint Pain, Localized in the Hip 12/07/2016 Jordy Bridges MD Active Last Documented On 7 8:58AM ; [facility], [facility] Joint Pain in the Right Knee 12/31/2015 Adrienne Grande MD Active Last Documented On 6 11:28AM ; [facility], [facility] Plan of Treatment Patient was seen by myself Darius Figueroa PA-C. Patient will follow up with Dr. Bridges after new MRI of the lumbar spine to possibly consider surgery he would obviously would need to have medical clearance prior to surgery - Last Documented On 04/06/2022 11:23AM ; [facility] Pending Tests Order Diagnosis Results Due Ordering P rovider Radiology - MRI MRI Lumbar Spine 02/23/22 Colten Figueroa PA-C Last Documented On 2 11:30AM ; [facility] Instructions to patient Lose weight Last Documented On 2 11:03AM ; [facility], [facility] Assessments Includes: Assessments from this encounter Findings Low back pain spinal stenosis - Last Documented On 04/06/2022 11:23AM ; [facility] Instructions Includes: Instructions from this encounter Instructions to patient Lose weight Last Documented On 2 11:03AM ; [facility], [facility] Medical Equipment - Implanted Devices Includes: Current Devices No Medical Equipment Recorded Medications Includes: Medications discussed during this encounter and other current Medications Discontinued / Stopped on this date on 07/19/2020 Mucinex DM 30-600 MG Oral Tablet Extended Release 12 H our Provider: Diagnosis: Last Documented On 11:31AM By Alva Fuentes ; [facility], [facility] Omeprazole 40 MG Oral Capsule Delayed Release Provider: Diagnosis: Last Documented On 11:31AM By Alva Fuentes ; [facility], [facility] Propranolol HCl ER 80 MG Oral Capsule Extended Release 24 Hour Provider: Diagnosis: Last Documented On 11:31AM By Alva GALLEGO [facility], [facility] Rosuvastatin Calcium 20 MG Oral Tablet Pr ovider: Diagnosis: Last Documented On 2 11:31AM By Alva Fuentes ; [facility], [facility] CVS Super B Complex/C Oral Tablet Provide r: Diagnosis: Last Documented On 11:31AM By Alva GALLEGO [facility], [facility] Folic Acid 400 MCG Oral Tablet Provider: Diagnosis: Last Documented On 2 11:31AM By Alva [facility] CVS Zinc 50 MG Oral Tablet Provider: Diagnosis: Last Documented On 2 11:31AM By [facility] Vitamin D3 25 MCG (1000 UT) Oral Tablet Chewable Provider: Diagnosis: Last Documented On 2 11:31AM By Alva [facility] Fluzone High-Dose Quadrivale nt 0.7 ML Intramuscular Suspension Prefilled Syringe Provider: Diagnosis: Last Documented On 2 11:31AM By Alva [facility] levoFLOXacin 500 MG Oral Tablet Provider: Diagnosis: Last Documented On 2 11:31AM By Alva [facility], [facility] Aspirin 81 MG Oral Tablet Chewable Provid er: Diagnosis: Last Documented On 2 11:31AM By Alva Fuentes ; [facility], [facility] Breo Ellipta 200-25 MCG/INH Inhalation Aerosol Powder Breath Activated Provider: Diagnosis: Last Documented On 2 11:31AM By Alva Fuentes ; [facility], [facility] hydroCHLOROthiazide 12.5 MG Oral Tablet P rovider: Diagnosis: Last Documented On 2 11:31AM By Alva Fuentes ; [facility], [facility] Current Medications (continue as prescribed) Albuterol Sulfate HFA 108 (9 0 Base) MCG/ACT Inhalation Aerosol Solution 02/08/2022 Provider: Diagnosis: Last Documented On 11:31AM By Alva Fuentes ; [facility], [facility] Warfarin Sodium 5 MG Oral Tablet 01/24/2022 Provider : MICHELLE KOTHARI MD Diagnosis: Last Documented On 11:31AM By Alva Fuentes ; [facility], [facility] Bumetanide 1 MG Oral Tablet 01/16/2022 Provider: Diagnosis: Last Documented On 11:31AM By Alva Fuentes ; [facility], [facility] Levothyroxine Sodium 50 MCG Oral Tablet 01/12/2022 P rovider: MICHELLE KOTHARI MD Diagnosis: Last Documented On 11:31AM By Alva Fuentes ; [facility], [facility] Memantine HCl 10 MG Oral Tablet 01/10/2022 Provider: MICHELLE KOTHARI MD Diagnosis: Last Documented On 2 11:31AM By Alva Fuentes ; [facility], [facility] Fluticasone Propionate 50 MCG/ACT Nasal Suspension 01/2022 Provider: Diagnosis: Last Documented On 11:31AM By Alva Fuentes ; [facility], [facility] Citalopram Hydrobromide 20 MG Oral Tablet 12/25/2021 Provider: MICHELLE KOTHARI MD Diagnosis: Last Documented On 11:31AM By Alva Fuentes ; [facility], [facility] Citalopram Hydrobromide 20 MG Oral Tablet 12/25/2021 Provider: MICHELLE KOTHARI MD Diagnosis: Last Documented On 2 11:31AM By Alva Fuentes ; [facility], [facility] Atorvastatin Calcium 40 MG Oral Tablet 12/03/2021 Pr ovider: Diagnosis: Last Documented On 2 11:31AM By Alva Fuentes ; [facility], [facility] amLODIPine Besylate 5 MG Oral Tablet 12/03/2021 Prov ider: Diagnosis: Last Documented On 11:31AM By Alva Fuentes ; [facility], [facility] Spironolactone 25 MG Oral Tablet 12/03/2021 Provider : Diagnosis: Last Documented On 2 11:31AM By Alva Fuentes ; [facility], [facility] Bisoprolol Fumarate 5 MG Oral Tablet 12/03/2021 Prov ider: Diagnosis: Last Documented On 11:31AM By Alva Fuentes ; [facility], [facility] Trelegy Ellipta 100-62.5-25 MCG/ACT Inhalation Aerosol Powder Breath Activated 11/28/2021 Provider: Diagnosis: Last Documented On 2 11:31AM By Alva Fuentes ; [facility], [facility] Ipratropium-Albuterol 0.5-2.5 (3) MG/3ML Inhalat ion Solution 11/09/2021 Provider: Diagnosis: Last Documented On 2 11:31AM By Alva Fuentes ; [facility], [facility] Euthyrox 50 MCG Oral Tablet 10/10/2021 Provider: Naresh Moura Diagnosis: Last Documented On 2 11:31AM By Alva Fuentes ; [facility], [facility] Past Medications on file ProAir HFA 108 (90 Base) MCG /ACT Inhalation Aerosol Solution 07/19/2020 - 08/04/2020 Provider: Diagnosis: Last Documented On 11:45AM By Kely Paul ; [facility], [facility] MS Contin 15 MG Tablet Extended Release 02/11/2016 - 02/18/2016 Provider: Yonas rogers MD Diagnosis: twice a day Last Documented On 6 10:11AM By Sybil Gage ; [facility], [facility] Colace 100 MG Capsule 02/11/2016 - 05/11/2016 Provider : Yonas Grande MD Diagnosis: 1-2 tabs daily NOT TO FILL TILL 02/19/16 Last Documented On 6 10:23AM By Sybil Gage ; [facility] Keflex 500 MG Capsule 02/11/2016 - 02/14/2016 Provider : Yonas Grande MD Diagnosis: 1 every 6 hours NOT TO FILL TILL 02/19/16 Last Documented On 6 10:23AM By Sybil Gage ; [facility] Mobic 15 MG Tablet 02/11/2016 - 04/11/2016 Provider: Yonas Grande MD Diagnosis: once a day NOT TO FILL TILL 02/19/16 Last Documented On 6 10:23AM By Sybil Gage ; [facility] Neurontin 300 MG Capsule 02/11/2016 - 05/11/2016 Provi bambi: Yonas Grande MD Diagnosis: 1 every bedtime NOT TO FILL TILL 02/19/16 Last Documented On 6 10:23AM By Sybil Gage ; [facility] Zofran 4 MG Tablet 02/11/2016 - 02/21/2016 Provider: Yonas Grande MD Diagnosis: [id number] prn nausea NOT TO FILL TILL 02/19/16 Last Documented On 6 10:23AM By Sybil Gage ; [facility] Percocet 5-325 MG Tablet 02/11/2016 - 02/21/2016 Provi bambi: Yonas Grande MD Diagnosis: 1-2 po q 4-6h PRN PAIN Last Documented On 6 10:11AM By Sybil Gage ; [facility] Percocet 5-325 MG Tablet 01/30/2016 - 02/09/2016 Provi bambi: Yonas Grande MD Diagnosis: 1-2 po q 4-6h PRN PAIN Last Documented On 6 9:13AM By Debo Drake ; [facility] Percocet 5-325 MG Tablet 01/07/2016 - 01/17/2016 Provi bambi: Yonas Grande MD Diagnosis: 1-2 po q 4-6h PRN PAIN Last Documented On 6 9:52AM By Sybil Gage ; [facility], [facility] MS Contin 15 MG Tablet, controlled-release 01/07/2016 - 01/14/2016 Provider: Yonas Grande MD Diagnosis: twice a day Last Documented On 6 9:52AM By Sybil Gage ; [facility], [facility] Colace 100 MG Capsule, conventional 01/07/2016 - 04/06/2016 Provider: Yonas Grande MD Diagnosis: 1-2 tabs dailyNOT TO FILL TILL 01/10/16 Last Documented On 6 9:55AM By Sybil Gage ; [facility], [facility] Keflex 500 MG Capsule, conventional 01/07/2016 - 01/10/2016 Provider: Yonas Grande MD Diagnosis: 1 every 6 hoursNOT TO FILL TILL 01/10/16 Last Documented On 6 9:55AM By Sybil Gage ; [facility], [facility] Mobic 15 MG Tablet 01/07/2016 - 03/10/2016 Provider: Yonas Grande MD Diagnosis: once a dayNOT TO FILL TILL 01/10/16 Last Documented On 6 9:55AM By Sybil Gage ; [facility], [facility] Neurontin 300 MG Capsule, conventional 01/07/2016 - 04/06/2016 Provider: Yonas Grande MD Diagnosis: 1 every bedtimeNOT TO FILL TILL 01/10/16 Last Documented On 6 9:55AM By Sybil Gage ; [facility], [facility] Zofran 4 MG Tablet 01/07/2016 - 01/17/2016 Provider: Yonas Grande MD Diagnosis: [id number] prn nauseaNOT TO FILL TILL 01/10/16 Last Documented On 6 9:56AM By Sybil Gage ; [facility], [facility] Medications Administered Includes: Administered Medications from this encounter No Administered Medications Recorded Vital Signs Includes: Vital Signs from this encounter Vital Name 02/09/2022 11:09A Blood Pressure Sitting R 120/60 Pulse Rate-Sitting (bpm) 59 Height (in) 68 Weight (lb) 230 Body Mass Index (kg/m2) 35.0 Body Surface Area (m2) 2.2 Note: bb Last Documented: On 02/09/2022 11:09A M ; [facility], [facility] Results Includes: Results discussed during this encounter No Results Recorded For Specified Dates History of Present Illness Includes: History of Present Illness from this encounter DHAVAL Carrillo is a 71 year old male. - Allergy list reviewed - Problem list reviewed - Medication list reviewed - Previous history of new onset pain Injury is not work related or an automotive accident - Patient pain level from 1-10: 6 - No previous treatment. Patient is here today complaints of back and left leg pain that radiates down to the top of the left uriostegui area. We saw him last year and was considering Lumbar fusion surgery with him from L2-L3 and L3-L4 But he states he was not able to have surgery he was told he was overweight. He says this was told to him by his family physician. He does have his still pain in the left leg when he tries to walk difficulties walking cannot walk very far rates pain 6 out of 10 he said prior to previous back surgeries. He denies any bowel or bladder issues with this. On Coumadin for history of DVTs Social History Description Last Updated Tobacco non-user 02/09/2022 Last Documented On 3 11:23AM ; [facility] No recent change in diet 02/09/2022 Last Documented On 3 11:23AM ; [facility] Not a current smoker. 02/09/2022 Last Documented On 3 11:23AM ; [facility] Not using alcohol 11/28/2020 Last Documented On 2 11:03AM ; [facility] Not a current smoker. 02/06/2020 Last Documented On 2 11:03AM ; [facility] Non-smoker 11/14/2019 Last Documented On 2 11:03AM ; [facility] Caffeine use 08/15/2015 Last Documented On 2 11:03AM ; [facility] No recent change in diet 08/15/2015 Last Documented On 2 11:03AM ; [facility], [facility] No tobacco use 08/15/2015 Last Documented On 2 11:03AM ; [facility], [facility] Not a current smoker 08/15/2015 Last Documented On 2 11:03AM ; [facility], [facility] Not exercising regularly 08/15/2015 Last Documented On 2 11:03AM ; [facility], [facility] Not using drugs 08/15/2015 Last Documented On 2 11:03AM ; [facility], [facility] Smoking status : Never smoker 08/15/2015 Last Documented On 2 11:03AM ; [facility], [facility] Procedures and Surgical History Includes: Procedures from this encounter Procedures Code Diagnosis Performing Provider Service L ocation Service Date history of orthopedic options: physical therapy Last Documented On 2 11:03AM ; [facility], [facility] use of tobacco assessment performed 1000F Last Documented On 2 11:03AM ; [facility], [facility] patient screened for future fall risk: documentation of any fall with injury in past year 1100F Last Documented On 2 11:10AM ; [facility], [facility] an X-ray was performed 98532 Last Documented On 2 11:10AM ; [facility], [facility] Surgical History Last Updated History of back surgery 08/15/2015 Last Documented On 2 11:03AM ; [facility], [facility] History of hernia repair 08/15/2015 Last Documented On 2 11:03AM ; [facility], [facility] History of total hip replacement 016 Last Documented On 2 11:03AM ; [facility], [facility] Medical History Includes: Medical History addressed during this encounter Description Last Updated Arthritis 02/06/2020 Last Documented On 2 11:03AM ; [facility], [facility] Heartburn / Acid Reflux 02/06/2020 Last Documented On 2 11:03AM ; [facility] History of Blood Clots 02/06/2020 Last Documented On 2 11:03AM ; [facility], [facility] History of diverticulitis of colon 02/05 Last Documented On 2 11:03AM ; [facility] History of Rheumatology 02/06/2020 Last Documented On 2 11:03AM ; [facility] Hypertension 02/06/2020 Last Documented On 2 11:03AM ; [facility] Sleep Apnea 02/06/2020 Last Documented On 2 11:03AM ; [facility] Thyroid Disease 02/06/2020 Last Documented On 2 11:03AM ; [facility] A recent immunization for flu 02/06/2020 Last Documented On 2 11:03AM ; [facility], [facility] A recent immunization for pneumococcal p neumonia 02/06/2020 Last Documented On 2 11:03AM ; [facility] Appendectomy 02/06/2020 Last Documented On 2 11:03AM ; [facility], [facility] Total knee arthroplasty 02/06/2020 Last Documented On 2 11:03AM ; [facility] blood clots 01/19/2019 Last Documented On 2 11:03AM ; [facility], [facility] A recent injection 01/19/2019 Last Documented On 2 11:03AM ; [facility] History of heart disease 01/19/2019 Last Documented On 2 11:03AM ; [facility], [facility] Intermittent hypertension 01/19/2019 Last Documented On 2 11:03AM ; [facility], [facility] Arthritic joint problems 08/15/2015 Last Documented On 2 11:03AM ; [facility], [facility] History of hepatitis 08/15/2015 Last Documented On 2 11:03AM ; [facility], [facility] Family History Includes: Family History addressed during this encounter Description Last Updated Stroke / Seizures 02/06/2020 Last Documented On 2 11:03AM ; [facility] Family history of thromboembolic disease 01/19/2019 Last Documented On 2 11:03AM ; [facility], [facility] No significant family history 12/07/2016 Last Documented On 2 11:03AM ; [facility], [facility] Review of Systems Includes: Review of Systems from this encounter Systemic: Not feeling tired, no recent weight loss, and no recent weight gain. No edema. Head: No headache and no sinus pain. Eyes: No vision problems Lasix Sx, no vision problems, and no glaucomatous visual field defect. No Cataracts, no Glasses/Contacts, and no Glaucoma. Otolaryngeal: No hearing loss and no tinnitus. No nasal symptoms. Cardiovascular: No chest pain or discomfort, no palpitations, no Hypertension, and no High Cholesterol. Pulmonary: No daytime asthma symptoms, no cough, and no chronic cough. No wheezing. Gastrointestinal: No heartburn and no abdominal pain. No Indigestion, no Acid Reflux, no Peptic Ulcer, no GI Stomach Bleed, and no Ulcers. Endocrine: No hot flashes, no muscle weakness, no Diabetes, no Hypothyroid, and no Hyperthyroid. Hematologic: Easy bleeding. No tendency for easy bruising and no Anemia. Musculoskeletal: No Arthritis. Lower back pain. No soft tissue swelling. Pain localized to one or more joints. Neurological: No dizziness, no convulsions, and no numbness. Psychological: No anxiety, no emotional lability, no depression, and no insomnia. Not crying for no reason. Skin: No dry skin. No Ulcers, no Scars, no rash, and no ulcers. Allergic and [...] Location Date Check-In Time Check-Out Time Diagnosis NEW PROBLEM/EST PT Darius Figueroa PA-C [facility] 02/10/20 22 11:02AM 11:26AM Insurance Includes: Active Insurance Policies Plan Name Member ID Group # Subscriber Relationship Effect brandy Dates 1 - Medicare Part B [facility] [id number] Reji Carrillo Self 09/19/2017 - Unknown 2 - [employer] [id number] Reji Carrillo Self 09/19/2017 - Unknown Clinical Notes Includes: Clinical Notes from this encounter * Progress note Date Encounter Last Documented by 02/09/2022 NEW PROBLEM/EST PT Last document ed on 04/06/2022; 11:23 AM, Darius Figueroa PA-C; [facility], [facility] Active Problems & Conditions - Joint Pain in the Left Knee - Joint Pain in the Right Knee - Joint Pain, Localized in the Hip Chief Complaint The Chief Complaint is: Lower back pain. Referred Here Referred by. History of Present Illness Reji Carrillo is a 71 year old male. - Allergy list reviewed - Problem list reviewed - Medication list reviewed - Previous history of new onset pain Injury is not work related or an automotive accident - Patient pain level from 1-10: 6 - No previous treatment. Patient is here today complaints of back and left leg pain that radiates down to the top of the left uriostegui area. We saw him last year and was considering Lumbar fusion surgery with him from L2-L3 and L3-L4 But he states he was not able to have surgery he was told he was overweight. He says this was told to him by his family physician. He does have his still pain in the left leg when he tries to walk difficulties walking cannot walk very far rates pain 6 out of 10 he said prior to previous back surgeries. He denies any bowel or bladder issues with this. On Coumadin for history of DVTs Current Medication - Albuterol Sulfate HFA 108 (90 Base) MCG/ACT Inhalation Aerosol Solution 50 days, 0 refills - amLODIPine Besylate 5 MG Oral Tablet 90 days, 0 refills - Atorvastatin Calcium 40 MG Oral Tablet 90 days, 0 refills - Bisoprolol Fumarate 5 MG Oral Tablet 90 days, 0 refills - Bumetanide 1 MG Oral Tablet 90 days, 0 refills - Citalopram Hydrobromide 20 MG Oral Tablet 90 days, 0 refills - Citalopram Hydrobromide 20 MG Oral Tablet 90 days, 0 refills - Euthyrox 50 MCG Oral Tablet 90 days, 0 refills - Fluticasone Propionate 50 MCG/ACT Nasal Suspension 30 days, 0 refills - Ipratropium-Albuterol 0.5-2.5 (3) MG/3ML Inhalation Solution 22 days, 0 refills - Levothyroxine Sodium 50 MCG Oral Tablet 90 days, 0 refills - Memantine HCl 10 MG Oral Tablet 90 days, 0 refills - Spironolactone 25 MG Oral Tablet 90 days, 0 refills - Trelegy Ellipta 100-62.5-25 MCG/ACT Inhalation Aerosol Powder Breath Activated 90 days, 0 refills - Warfarin Sodium 5 MG Oral Tablet 30 days, 0 refills Past Medical/Surgical History Reported: Medical: Arthritic joint problems. Intermittent hypertension. Medications: A recent injection. Immunization History: Recent immunization for flu and for pneumococcal pneumonia. Diagnoses: Heart disease. History of Blood Clots Sleep Apnea Heartburn / Acid Reflux Thyroid Disease Hypertension History of Rheumatology. Diverticulitis of colon Hepatitis. Arthritis Blood clots. Surgical: - Appendectomy - Hernia repair - Back surgery - Total hip replacement - Total knee arthroplasty Previous Therapy - History of orthopedic options: physical therapy Social History Not a current smoker. Not a current smoker. Current diet: No recent change in diet. No recent change in diet. Caffeine use: Caffeine use. Tobacco use: No tobacco use and not a current smoker. Tobacco non-user and non-smoker. Smoking status: Never smoker. Alcohol: Not using alcohol. Drug Use: Not using drugs. Habits: Not exercising regularly. Allergies - No Known Allergies Family History No significant family history Stroke / Seizures Thromboembolic disease Review Of Systems Systemic: Not feeling tired, no recent weight loss, and no recent weight gain. No edema. Head: No headache and no sinus pain. Eyes: No vision problems Lasix Sx, no vision problems, and no glaucomatous visual field defect. No Cataracts, no Glasses/Contacts, and no Glaucoma. Otolaryngeal: No hearing loss and no tinnitus. No nasal symptoms. Cardiovascular: No chest pain or discomfort, no palpitations, no Hypertension, and no High Cholesterol. Pulmonary: No daytime asthma symptoms, no cough, and no chronic cough. No wheezing. Gastrointestinal: No heartburn and no abdominal pain. No Indigestion, no Acid Reflux, no Peptic Ulcer, no GI Stomach Bleed, and no Ulcers. Endocrine: No hot flashes, no muscle weakness, no Diabetes, no Hypothyroid, and no Hyperthyroid. Hematologic: Easy bleeding. No tendency for easy bruising and no Anemia. Musculoskeletal: No Arthritis. Lower back pain. No soft tissue swelling. Pain localized to one or more joints. Neurological: No dizziness, no convulsions, and no numbness. Psychological: No anxiety, no emotional lability, no depression, and no insomnia. Not crying for no reason. Skin: No dry skin. No Ulcers, no Scars, no rash, and no ulcers. Allergic and Immunologic: No complaint of seasonal allergic reaction. reviewed on 03/06/2021 Physical Findings - Vitals taken 02/09/2022 11:09 am bb BP-Sitting R 120/60 mmHg Pulse Rate-Sitting 59 bpm Height 68 in Weight 230 lbs Body Mass Index 35.0 kg/m2 Body Surface Area 2.2 m2 Standard Measurements: - Patient was overweight see pcp for Bp//manny. Patient is pleasant alert or and oriented x3 some mild diffuse weakness bilaterally both lower extremities EHL tibialis anterior quadricep bilaterally 1+ patellar and Achilles reflexes bilaterally Tests 2 views lumbar spine shows degenerative changes above his previous uninstrumented fusion from L4-S1 February 09, 2022 Assessment Low back pain spinal stenosis Previous Tests Imaging: X-Ray: An X-ray was performed. Counseling/Education - Lose weight Plan StartCited - Other Radiology/MRI: MRI Lumbar Spine EndCited Patient was seen by myself Darius Figueroa PA-C. Patient will follow up with Dr. Bridges after new MRI of the lumbar spine to possibly consider surgery he would obviously would need to have medical clearance prior to surgery Notes This dictation was done with voice recognition software and may contain errors and omissions. Practice Management Use of tobacco assessment performed and patient screened for future fall risk documentation of any fall with injury in past year. Care Team - MICHELLE KOTHARI MD - POWDER LINE REPAIRER
--- OUTSIDE RECORDS SUMMARY | 2024-06-29 23:33 | XMS_ITS ---
Care Plan - [facility], [facility] Created on: June 29, 2024 Reji Carrillo : 1950 Sex: Male Author Organization [facility] Address [address] [place] [address] Phone Care Team Providers Care Contact Center Engineer Name Role Phone SANIYA WINTERS, MICHELLE Primary Care Provider [phone] Harjinder WINTERS, Yonas Padgett [phone]
--- OUTSIDE RECORDS SUMMARY | 2024-06-29 23:33 | XMS_ITS | Clinical Summary ---
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 Name Role Phone SANIYA WINTERS, MICHELLE Primary Care Provider [phone] Harjinder WINTERS, Yonas Padgett [phone] Reason for Referral Date Encounter Description Provider Reason for Referral 03/06/21 Follow Up Rodrigo Daniels PA-C Refer [...] Active Last Documented On 0 10:58AM ; [facility] Joint Pain, Localized in the Hip 12/07/2016 Jordy Bridges MD Active Last Documented On 7 8:58AM ; [facility] Joint Pain in the Right Knee 12/31/2015 Adrienne Grande MD Active Last Documented On 6 11:28AM ; [facility] Plan of Treatment The [left knee was prepped with 3 betadine swabs and an alcohol swab. 3cc 1% lidocaine plain was injected into the knee superficially. The knee was reprepped in the same fashion. An 18 gauge needle on 60cc syringe was then used to aspirate [15] cc of [blood] synovial fluid. 2 cc of Marcaine mixed with 2 cc lidocaine and 2 cc of 40 mg Kenalog mix were then injected through the same needle with good fill, patient tolerated procedure well. Hemostasis was obtained with a band-aid. Patient already scheduled to follow-up with Dr. Aleman May 29. patient is a bit of a poor historian unsure if he was able to save the therapy was beneficial but also at the same time said he felt better when doing therapy. States he only went for 5 times and that was it. 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 - Last Documented On 03/07/2021 7:57AM ; [facility] Instructions Includes: Instructions from this encounter Instructions to patient Instructions for patient See PCP for weight management and elevated BP Last Documented On 11:06AM ; [facility] Lose weight Last Documented On 11:06AM ; [facility] Medical Equipment - Implanted Devices Includes: Current Devices No Medical Equipment Recorded Medications Includes: Medications discussed during this encounter and other current Medications Current Medications (continue as prescribed) Albuterol Sulfate HFA 108 (9 0 Base) MCG/ACT Inhalation Aerosol Solution 02/08/2022 Provider: Diagnosis: Last Documented On 2 11:31AM By Alva GALLEGO [facility] Warfarin Sodium 5 MG Oral Tablet 01/24/2022 Provider : MICHELLE KOTHARI MD Diagnosis: Last Documented On 2 11:31AM By Alva GALLEGO [facility] Bumetanide 1 MG Oral Tablet 01/16/2022 Provider: Diagnosis: Last Documented On 2 11:31AM By Alva GALLEGO [facility] Levothyroxine Sodium 50 MCG Oral Tablet 01/12/2022 Hayley morales: MICHELLE KOTHARI MD Diagnosis: Last Documented On 2 11:31AM By Alva Fuentes ; [facility] Memantine HCl 10 MG Oral Tablet 01/10/2022 Provider: MICHELLE KOTHARI MD Diagnosis: Last Documented On 2 11:31AM By Alva Fuentes ; [facility] Fluticasone Propionate 50 MCG/ACT Nasal Suspension 01/2022 Provider: Diagnosis: Last Documented On 2 11:31AM By Alva Fuentes ; [facility] Citalopram Hydrobromide 20 MG Oral Tablet 12/25/2021 Provider: MICHELLE KOTHARI MD Diagnosis: Last Documented On 2 11:31AM By Alva Fuentes ; [facility] Citalopram Hydrobromide 20 MG Oral Tablet 12/25/2021 Provider: MICHELLE KOTHARI MD Diagnosis: Last Documented On 11:31AM By Alva Fuentes ; [facility] Atorvastatin Calcium 40 MG Oral Tablet 12/03/2021 Pr ovider: Diagnosis: Last Documented On 11:31AM By Alva Fuentes ; [facility] amLODIPine Besylate 5 MG Oral Tablet 12/03/2021 Prov ider: Diagnosis: Last Documented On 2 11:31AM By Alva Fuentes ; [facility] Spironolactone 25 MG Oral Tablet 12/03/2021 Provider : Diagnosis: Last Documented On 2 11:31AM By Alva Fuentes ; [facility] Bisoprolol Fumarate 5 MG Oral Tablet 12/03/2021 Prov ider: Diagnosis: Last Documented On 2 11:31AM By Alva Fuentes ; [facility] Trelegy Ellipta 100-62.5-25 MCG/ACT Inhalation Aerosol Powder Breath Activated 11/28/2021 Provider: Diagnosis: Last Documented On 2 11:31AM By Alva Fuentes ; [facility] Ipratropium-Albuterol 0.5-2.5 (3) MG/3ML Inhalat ion Solution 11/09/2021 Provider: Diagnosis: Last Documented On 2 11:31AM By Alva Fuentes ; [facility] Euthyrox 50 MCG Oral Tablet 10/10/2021 Provider: Naresh Moura Diagnosis: Last Documented On 2 11:31AM By Alva Fuentes ; [facility] Past Medications on file ProAir HFA 108 (90 Base) MCG /ACT Inhalation Aerosol Solution 07/19/2020 - 08/04/2020 Provider: Diagnosis: Last Documented On 1 11:45AM By Kely Paul ; [facility] MS Contin 15 MG Tablet Extended Release 02/11/2016 - 02/18/2016 Provider: Yonas rogers MD Diagnosis: twice a day Last Documented On 6 10:11AM By Sybil Gage ; [facility] Colace 100 MG Capsule 02/11/2016 - 05/11/2016 Provider : Yonas Grande MD Diagnosis: 1-2 tabs daily NOT TO FILL TILL 02/19/16 Last Documented On 6 10:23AM By Sybil Gage ; [facility] Keflex 500 MG Capsule 02/11/2016 - 02/14/2016 Provider : Yonas Grande MD Diagnosis: 1 every 6 hours NOT TO FILL TILL 02/19/16 Last Documented On 6 10:23AM By Sybil Gage ; [facility] Mobic 15 MG Tablet 02/11/2016 - 04/11/2016 Provider: Yonas Grande MD Diagnosis: once a day NOT TO FILL TILL 02/19/16 Last Documented On 6 10:23AM By Sybil Gage ; [facility] Neurontin 300 MG Capsule 02/11/2016 - 05/11/2016 Provi bambi: Yonas Grande MD Diagnosis: 1 every bedtime NOT TO FILL TILL 02/19/16 Last Documented On 6 10:23AM By Sybil Gage ; [facility] Zofran 4 MG Tablet 02/11/2016 - 02/21/2016 Provider: Yonas Grande MD Diagnosis: [id number] prn nausea NOT TO FILL TILL 02/19/16 Last Documented On 6 10:23AM By Sybil Gage ; [facility] Percocet 5-325 MG Tablet 02/11/2016 - 02/21/2016 Provi bambi: Yonas Grande MD Diagnosis: 1-2 po q 4-6h PRN PAIN Last Documented On 6 10:11AM By Sybil Gage ; [facility] Percocet 5-325 MG Tablet 01/30/2016 - 02/09/2016 Provi bambi: Yonas Grande MD Diagnosis: 1-2 po q 4-6h PRN PAIN Last Documented On 6 9:13AM By Debo Drake ; [facility] Percocet 5-325 MG Tablet 01/07/2016 - 01/17/2016 Provi bambi: Yonas Grande MD Diagnosis: 1-2 po q 4-6h PRN PAIN Last Documented On 6 9:52AM By Sybil Gage ; [facility] MS Contin 15 MG Tablet, controlled-release 01/07/2016 - 01/14/2016 Provider: Yonas Grande MD Diagnosis: twice a day Last Documented On 6 9:52AM By Sybil Gage ; [facility] Colace 100 MG Capsule, conventional 01/07/2016 - 04/06/2016 Provider: Yonas Grande MD Diagnosis: 1-2 tabs dailyNOT TO FILL TILL 01/10/16 Last Documented On 6 9:55AM By Sybil Gage ; [facility] Keflex 500 MG Capsule, conventional 01/07/2016 - 01/10/2016 Provider: Yonas Grande MD Diagnosis: 1 every 6 hoursNOT TO FILL TILL 01/10/16 Last Documented On 6 9:55AM By Sybil Gage ; [facility] Mobic 15 MG Tablet 01/07/2016 - 03/10/2016 Provider: Yonas Grande MD Diagnosis: once a dayNOT TO FILL TILL 01/10/16 Last Documented On 6 9:55AM By Sybil Gage ; [facility] Neurontin 300 MG Capsule, conventional 01/07/2016 - 04/06/2016 Provider: Yonas Grande MD Diagnosis: 1 every bedtimeNOT TO FILL TILL 01/10/16 Last Documented On 6 9:55AM By Sybil Gage ; [facility] Zofran 4 MG Tablet 01/07/2016 - 01/17/2016 Provider: Yonas Grande MD Diagnosis: [id number] prn nauseaNOT TO FILL TILL 01/10/16 Last Documented On 6 9:56AM By Sybil Gage ; [facility] Medications Administered Includes: Administered Medications from this encounter No Administered Medications Recorded Vital Signs Includes: Vital Signs from this encounter Vital Name 03/06/2021 11:07A Blood Pressure Sitting (mmHg) 143/65 Pulse Rate-Sitting (bpm) 55 Height (in) 68 Weight (lb) 245 Body Mass Index (kg/m2) 37.3 Body Surface Area (m2) 2.2 Note: ML Last Documented: On 03/06/2021 11:09A M ; [facility], [facility] Results Includes: Results discussed during this encounter No Results Recorded For Specified Dates History of Present Illness Includes: History of Present Illness from this encounter DHAVAL Carrillo is a 70 year old male. - Allergy list reviewed - Problem list reviewed - Medication reconciliation performed - Medication list reviewed Social History Description Last Updated Not using alcohol 11/28/2020 Last Documented On 1 11:06AM ; [facility] Not a current smoker. 02/06/2020 Last Documented On 1 11:06AM ; [facility] Non-smoker 11/14/2019 Last Documented On 1 11:06AM ; [facility] Caffeine use 08/15/2015 Last Documented On 1 11:06AM ; [facility] No recent change in diet 08/15/2015 Last Documented On 1 11:06AM ; [facility] No tobacco use 08/15/2015 Last Documented On 1 11:06AM ; [facility] Not a current smoker 08/15/2015 Last Documented On 1 11:06AM ; [facility] Not exercising regularly 08/15/2015 Last Documented On 11:06AM ; [facility] Not using drugs 08/15/2015 Last Documented On 1 11:06AM ; [facility] Smoking status : Never smoker 08/15/2015 Last Documented On 11:06AM ; [facility] Procedures and Surgical History Includes: Procedures from this encounter Procedures Code Diagnosis Performing Provider Service L ocation Service Date history of orthopedic options: physical therapy Last Documented On 1 11:06AM ; [facility] use of tobacco assessment performed 1000F Last Documented On 11:09AM ; [facility] referral to physician see pcp for bp Last Documented On 11:06AM ; [facility] Surgical History Last Updated History of appendectomy 08/15/2015 Last Documented On 11:06AM ; [facility] History of back surgery 08/15/2015 Last Documented On 11:06AM ; [facility] History of hernia repair 08/15/2015 Last Documented On 11:06AM ; [facility] History of total hip replacement 016 Last Documented On 1 11:06AM ; [facility] Medical History Includes: Medical History addressed during this encounter Description Last Updated Arthritis 02/06/2020 Last Documented On 1 11:06AM ; [facility] Heartburn / Acid Reflux 02/06/2020 Last Documented On 1 11:06AM ; [facility] History of Blood Clots 02/06/2020 Last Documented On 1 11:06AM ; [facility] History of diverticulitis of colon 02/05 Last Documented On 1 11:06AM ; [facility] History of Rheumatology 02/06/2020 Last Documented On 1 11:06AM ; [facility] Hypertension 02/06/2020 Last Documented On 1 11:06AM ; [facility] Sleep Apnea 02/06/2020 Last Documented On 1 11:06AM ; [facility] Thyroid Disease 02/06/2020 Last Documented On 1 11:06AM ; [facility] A recent immunization for flu 02/06/2020 Last Documented On 1 11:06AM ; [facility] A recent immunization for pneumococcal p neumonia 02/06/2020 Last Documented On 1 11:06AM ; [facility] Appendectomy 02/06/2020 Last Documented On 1 11:06AM ; [facility] Back surgery 02/06/2020 Last Documented On 1 11:06AM ; [facility] Hernia repair 02/06/2020 Last Documented On 1 11:06AM ; [facility] Total knee arthroplasty 02/06/2020 Last Documented On 1 11:06AM ; [facility] blood clots 01/19/2019 Last Documented On 1 11:06AM ; [facility] A recent injection 01/19/2019 Last Documented On 1 11:06AM ; [facility] History of heart disease 01/19/2019 Last Documented On 1 11:06AM ; [facility] Intermittent hypertension 01/19/2019 Last Documented On 1 11:06AM ; [facility] Arthritic joint problems 08/15/2015 Last Documented On 1 11:06AM ; [facility] History of hepatitis 08/15/2015 Last Documented On 1 11:06AM ; [facility] Family History Includes: Family History addressed during this encounter Description Last Updated Stroke / Seizures 02/06/2020 Last Documented On 1 11:06AM ; [facility] Family history of thromboembolic disease 01/19/2019 Last Documented On 1 11:06AM ; [facility] No significant family history 12/07/2016 Last Documented On 1 11:06AM ; [facility] Review of Systems Includes: Review of [...] Check-In Time Check-Out Time Diagnosis Follow Up Rodrigo Daniels PA-C [facility] 1 10:31AM 11:27AM Insurance Includes: Active Insurance Policies Plan Name Member ID Group # Subscriber Relationship Effect brandy Dates 1 - Medicare Part B [facility] [id number] Reji Brooks [place] Self 09/19/2017 - Unknown 2 - [employer] [place] [id number] Reji Brooks [place] Self 09/19/2017 - Unknown Clinical Notes Includes: Clinical Notes from this encounter No Clinical Notes Recorded
--- OUTSIDE RECORDS SUMMARY | 2024-06-29 23:33 | XMS_ITS | Clinical Summary ---
Author Organization [facility] , [facility] Address [address] [place] [address] Phone Care Team Providers Care Aed Trainer Name Role Phone SANIYA WINTERS, MICHELLE Primary Care Provider [phone] Harjinder WINTERS, Yonas Padgett [phone] Reason for Visit and Chief Complaint The Chief Complaint is: Lower back pain Problems Includes: Problems addressed during this encounter and other active Problems All Visits Onset Date Resolved Date Provider Condition S tatus Joint Pain in the Left Knee 10/17/2019 Yonas Grande MD Active Last Documented On 0 10:58AM ; [facility] Joint Pain, Localized in the Hip 12/07/2016 Jordy Bridges MD Active Last Documented On 7 8:58AM ; [facility] Joint Pain in the Right Knee 12/31/2015 Adrienne Grande MD Active Last Documented On 6 11:28AM ; [facility], [facility] Plan of Treatment Fall Risk Assessment: This patient has been identified as a fall risk. Balance/gait along with postural blood pressure, vision and home fall hazards have been assessed. Medications have been reviewed, and recommendations made with regard to contributing factors for future falls. Plan of care: Consideration of vitamin D supplementation along with balance and strength training with consideration for formal physical therapy has been discussed with the patient. - Last Documented On 04/06/2022 12:44PM ; [facility], [facility] Instructions to patient Lose weight Last Documented On 2 10:07AM ; [facility], [facility] Assessments Includes: Assessments from this encounter Findings Low back pain spinal stenosis - Last Documented On 04/06/2022 12:44PM ; [facility], [facility] Instructions Includes: Instructions from this encounter Instructions to patient Lose weight Last Documented On 2 10:07AM ; [facility], [facility] Medical Equipment - Implanted Devices Includes: Current Devices No Medical Equipment Recorded Medications Includes: Medications discussed during this encounter and other current Medications Current Medications (continue as prescribed) Albuterol Sulfate HFA 108 (9 0 Base) MCG/ACT Inhalation Aerosol Solution 02/08/2022 Provider: Diagnosis: Last Documented On 2 11:31AM By Alva Fuentes ; [facility], [facility] Warfarin Sodium 5 MG Oral Tablet 01/24/2022 Provider : MICHELLE KOTHARI MD Diagnosis: Last Documented On 11:31AM By Alva Fuentes ; [facility], [facility] Bumetanide 1 MG Oral Tablet 01/16/2022 Provider: Diagnosis: Last Documented On 11:31AM By Alva Fuentes ; [facility], [facility] Levothyroxine Sodium 50 MCG Oral Tablet 01/12/2022 P eugeniavider: MICHELLE KOTHARI MD Diagnosis: Last Documented On 11:31AM By Alva Fuentes ; [facility], [facility] Memantine HCl 10 MG Oral Tablet 01/10/2022 Provider: MICHELLE KOTHARI MD Diagnosis: Last Documented On 11:31AM By Alva Fuentes ; [facility], [facility] Fluticasone Propionate 50 MCG/ACT Nasal Suspension 01/2022 Provider: Diagnosis: Last Documented On 11:31AM By Alva Fuentes ; [facility], [facility] Citalopram Hydrobromide 20 MG Oral Tablet 12/25/2021 Provider: MICHELLE KOTHARI MD Diagnosis: Last Documented On 11:31AM By Alva Fuentes ; [facility], [facility] Citalopram Hydrobromide 20 MG Oral Tablet 12/25/2021 Provider: MICHELLE KOTHARI MD Diagnosis: Last Documented On 11:31AM By Alva Fuentes ; [facility], [facility] Atorvastatin Calcium 40 MG Oral Tablet 12/03/2021 Pr ovider: Diagnosis: Last Documented On 2 11:31AM By Alva Fuentes ; [facility], [facility] amLODIPine Besylate 5 MG Oral Tablet 12/03/2021 Prov ider: Diagnosis: Last Documented On 2 11:31AM By Alva Fuentes ; [facility], [facility] Spironolactone 25 MG Oral Tablet 12/03/2021 Provider : Diagnosis: Last Documented On 2 11:31AM By Alva Fuentes ; [facility], [facility] Bisoprolol Fumarate 5 MG Oral Tablet 12/03/2021 Prov ider: Diagnosis: Last Documented On 2 11:31AM By Alva Fuentes ; [facility], [facility] Trelegy Ellipta 100-62.5-25 MCG/ACT Inhalation Aerosol Powder Breath Activated 11/28/2021 Provider: Diagnosis: Last Documented On 2 11:31AM By Alva Fuentes ; [facility] Ipratropium-Albuterol 0.5-2.5 (3) MG/3ML Inhalat ion Solution 11/09/2021 Provider: Diagnosis: Last Documented On 2 11:31AM By Alva Fuentes ; [facility], [facility] Euthyrox 50 MCG Oral Tablet 10/10/2021 Provider: Naresh Moura Diagnosis: Last Documented On 2 11:31AM By Alva Fuentes ; [facility], [facility] Past Medications on file ProAir HFA 108 (90 Base) MCG /ACT Inhalation Aerosol Solution 07/19/2020 - 08/04/2020 Provider: Diagnosis: Last Documented On 1 11:45AM By Kely Paul ; [facility], [facility] MS Contin 15 MG Tablet Extended Release 02/11/2016 - 02/18/2016 Provider: Yonas rogers MD Diagnosis: twice a day Last Documented On 6 10:11AM By Sybil Gage ; [facility], [facility] Colace 100 MG Capsule 02/11/2016 - 05/11/2016 Provider : Yonas Grande MD Diagnosis: 1-2 tabs daily NOT TO FILL TILL 02/19/16 Last Documented On 6 10:23AM By Sybil Gage ; [facility] Keflex 500 MG Capsule 02/11/2016 [...] Gage ; [facility] Neurontin 300 MG Capsule 02/11/2016 - 05/11/2016 Provi bambi: Yonas Grande MD Diagnosis: 1 every bedtime NOT TO FILL TILL 02/19/16 Last Documented On 6 10:23AM By Sybil Gage ; [facility] Zofran 4 MG Tablet 02/11/2016 - 02/21/2016 Provider: Yonas Grande MD Diagnosis: [id number] prn nausea NOT TO FILL TILL 02/19/16 Last Documented On 6 10:23AM By Sybil Gage ; [facility] Percocet 5-325 MG Tablet 02/11/2016 - 02/21/2016 Provi bambi: Yonas Grande MD Diagnosis: 1-2 po q 4-6h PRN PAIN Last Documented On 6 10:11AM By Sybil Gage ; [facility] Percocet 5-325 MG Tablet 01/30/2016 - 02/09/2016 Provi bambi: Yonas Grande MD Diagnosis: 1-2 po q 4-6h PRN PAIN Last Documented On 6 9:13AM By Debo Drake ; [facility] Percocet 5-325 MG Tablet 01/07/2016 - 01/17/2016 Provi bambi: Yonas Grande MD Diagnosis: 1-2 po q 4-6h PRN PAIN Last Documented On 6 9:52AM By Sybil Gage ; [facility] MS Contin 15 MG Tablet, controlled-release 01/07/2016 - 01/14/2016 Provider: Yonas Grande MD Diagnosis: twice a day Last Documented On 6 9:52AM By Sybil Gage ; [facility] Colace 100 MG Capsule, conventional 01/07/2016 - 04/06/2016 Provider: Yonas Grande MD Diagnosis: 1-2 tabs dailyNOT TO FILL TILL 01/10/16 Last Documented On 6 9:55AM By Sybil Gage ; [facility] Keflex 500 MG Capsule, conventional 01/07/2016 - 01/10/2016 Provider: Yonas Grande MD Diagnosis: 1 every 6 hoursNOT TO FILL TILL 01/10/16 Last Documented On 6 9:55AM By Sybil Gage ; [facility], [facility] Mobic 15 MG Tablet 01/07/2016 - 03/10/2016 Provider: Yonas Grande MD Diagnosis: once a dayNOT TO FILL TILL 01/10/16 Last Documented On 6 9:55AM By Sybil Gage ; [facility] Neurontin 300 MG Capsule, conventional 01/07/2016 - 04/06/2016 Provider: Yonas Grande MD Diagnosis: 1 every bedtimeNOT TO FILL TILL 01/10/16 Last Documented On 6 9:55AM By Sybil Gage ; [facility], [facility] Zofran 4 MG Tablet 01/07/2016 - 01/17/2016 Provider: Yonas Grande MD Diagnosis: [id number] prn nauseaNOT TO FILL TILL 01/10/16 Last Documented On 6 9:56AM By Sybil Gage ; [facility], [facility] Medications Administered Includes: Administered Medications from this encounter No Administered Medications Recorded Vital Signs Includes: Vital Signs from this encounter Vital Name 03/05/2022 10:13A Blood Pressure Sitting (mmHg) 113/58 Pulse Rate-Sitting (bpm) 65 Height (in) 68 Weight (lb) 235 Body Mass Index 35.7 Body Surface Area 2.2 Note: mg Last Documented: On 03/05/2022 10:14A M ; [facility] Results Includes: Results discussed during this encounter No Results Recorded For Specified Dates History of Present Illness Includes: History of Present Illness from this encounter DHAVAL Carrillo is a 71 year old male. - Allergy list reviewed - Problem list reviewed - Medication list reviewed with patient Social History Description Last Updated Tobacco non-user 02/09/2022 Last Documented On 2 10:07AM ; [facility] No recent change in diet 02/09/2022 Last Documented On 2 10:07AM ; [facility] Not a current smoker. 02/09/2022 Last Documented On 2 10:07AM ; [facility] Not using alcohol 11/28/2020 Last Documented On 2 10:07AM ; [facility] Not a current smoker. 02/06/2020 Last Documented On 2 10:07AM ; [facility] Non-smoker 11/14/2019 Last Documented On 2 10:07AM ; [facility] Caffeine use 08/15/2015 Last Documented On 2 10:07AM ; [facility] No recent change in diet 08/15/2015 Last Documented On 2 10:07AM ; [facility] No tobacco use 08/15/2015 Last Documented On 2 10:07AM ; [facility] Not a current smoker 08/15/2015 Last Documented On 2 10:07AM ; [facility] Not exercising regularly 08/15/2015 Last Documented On 2 10:07AM ; [facility] Not using drugs 08/15/2015 Last Documented On 2 10:07AM ; [facility] Smoking status : Never smoker 08/15/2015 Last Documented On 2 10:07AM ; [facility] Procedures and Surgical History Includes: Procedures from this encounter Procedures Code Diagnosis Performing Provider Service L ocation Service Date history of orthopedic options: physical therapy Last Documented On 2 10:07AM ; [facility] use of tobacco assessment performed 1000F Last Documented On 2 10:07AM ; [facility], [facility] patient screened for future fall risk: documentation of any fall with injury in past year 1100F Last Documented On 2 10:07AM ; [facility], [facility] an X-ray was performed 93594 Last Documented On 2 10:07AM ; [facility], [facility] Surgical History Last Updated History of appendectomy 08/15/2015 Last Documented On 2 10:07AM ; [facility], [facility] History of hernia repair 08/15/2015 Last Documented On 2 10:07AM ; [facility], [facility] History of total hip replacement 016 Last Documented On 2 10:07AM ; [facility], [facility] Medical History Includes: Medical History addressed during this encounter Description Last Updated Arthritis 02/06/2020 Last Documented On 2 10:07AM ; [facility], [facility] Heartburn / Acid Reflux 02/06/2020 Last Documented On 2 10:07AM ; [facility], [facility] History of Blood Clots 02/06/2020 Last Documented On 2 10:07AM ; [facility], [facility] History of diverticulitis of colon 02/05 Last Documented On 2 10:07AM ; [facility], [facility] History of Rheumatology 02/06/2020 Last Documented On 2 10:07AM ; [facility], [facility] Hypertension 02/06/2020 Last Documented On 2 10:07AM ; [facility], [facility] Sleep Apnea 02/06/2020 Last Documented On 2 10:07AM ; [facility], [facility] Thyroid Disease 02/06/2020 Last Documented On 2 10:07AM ; [facility], [facility] A recent immunization for flu 02/06/2020 Last Documented On 2 10:07AM ; [facility], [facility] A recent immunization for pneumococcal p neumonia 02/06/2020 Last Documented On 2 10:07AM ; [facility], [facility] Back surgery 02/06/2020 Last Documented On 2 10:07AM ; [facility], [facility] Total knee arthroplasty 02/06/2020 Last Documented On 2 10:07AM ; [facility], [facility] blood clots 01/19/2019 Last Documented On 2 10:07AM ; [facility], [facility] A recent injection 01/19/2019 Last Documented On 2 10:07AM ; [facility], [facility] History of heart disease 01/19/2019 Last Documented On 2 10:07AM ; [facility], [facility] Intermittent hypertension 01/19/2019 Last Documented On 2 10:07AM ; [facility], [facility] Arthritic joint problems 08/15/2015 Last Documented On 2 10:07AM ; [facility], [facility] History of hepatitis 08/15/2015 Last Documented On 2 10:07AM ; [facility], [facility] Family History Includes: Family History addressed during this encounter Description Last Updated Stroke / Seizures 02/06/2020 Last Documented On 2 10:07AM ; [facility], [facility] Family history of thromboembolic disease 01/19/2019 Last Documented On 2 10:07AM ; [facility], [facility] No significant family history 12/07/2016 Last Documented On 2 10:07AM ; [facility], [facility] Review of Systems Includes: Review of [...] complaint of seasonal allergic reaction. reviewed on 03/05/22 Mental Status Includes: Mental Status from this encounter Description No anxiety Functional Status Includes: Functional Status from this encounter No Functional Status Recorded Physical Exam Includes: Physical Exam from this encounter Allergies Includes: Active Allergies No Known Allergies Encounters Encounter Provider Location Date Check-In Time Check- Out Time Diagnosis Follow Up Trell Bridges MD [facility] 2 9:35AM 10:46AM Insurance Includes: Active Insurance Policies Plan Name Member ID Group # Subscriber Relationship Effect brandy Dates 1 - Medicare Part B [facility] [id number] Reji Carrillo Self 09/19/2017 - Unknown 2 - [employer] [id number] Reji Carrillo Self 09/19/2017 - Unknown Clinical Notes Includes: Clinical Notes from this encounter * Progress note Date Encounter Last Documented by 03/05/2022 Follow Up Last documented on 04/06/2022; 12:44 PM, Trell Bridges MD; [facility], [facility] Active Problems & Conditions - Joint Pain in the Left Knee - Joint Pain in the Right Knee - Joint Pain, Localized in the Hip Chief Complaint The Chief Complaint is: Lower back pain. Referred Here Referred by Self. History of Present Illness Reji Carrillo is a 71 year old male. - Allergy list reviewed - Problem list reviewed - Medication list reviewed with patient Current Medication - Albuterol Sulfate HFA 108 [...] complaint of seasonal allergic reaction. reviewed on 03/05/22 Physical Findings - Vitals taken 03/05/2022 10:13 am mg BP-Sitting 113/58 mmHg Pulse Rate-Sitting 65 bpm Height 68 in Weight 235 lbs Body Mass Index 35.7 kg/m2 Body Surface Area 2.2 m2 Standard Measurements: - Patient was overweight. Assessment Low back pain spinal stenosis Previous Tests Imaging: X-Ray: An X-ray was performed. Available previous imaging studies were reviewed Available previous history reviewed Counseling/Education - Lose weight Plan Fall Risk Assessment: This patient has been identified as a fall risk. Balance/gait along with postural blood pressure, vision and home fall hazards have been assessed. Medications have been reviewed, and recommendations made with regard to contributing factors for future falls. Plan of care: Consideration of vitamin D supplementation along with balance and strength training with consideration for formal physical therapy has been discussed with the patient. Notes This dictation was done with voice recognition software and may contain errors and omissions. Patient is here for follow-up of his lumbar MRI. He has back and leg pain. His MRI shows severe stenosis at L3-4 above his previous laminectomy. I encouraged him to try to lose some weight. We will try an epidural injection. I will see him back in 6 to 8 weeks Practice Management Use of tobacco assessment performed and patient screened for future fall risk documentation of any fall with injury in past year. Care Team - MICHELLE KOTHARI MD - [employer] MACHINE OPERATOR
--- OUTSIDE RECORDS SUMMARY | 2024-06-29 23:33 | XMS_ITS | Clinical Summary ---
Author Organization [facility] , [facility] Address [address], [place] [address] Phone Care Team Providers Care Ophthalmic Assistant Name Role Phone SANIYA WINTERS, MICHELLE Primary Care Provider [phone] Harjinder WINTERS, Yonas Padgett [phone] Reason for Referral Date Encounter Description Provider Reason for Referral 01/02/21 Follow Up Yonas rogers MD Referral To Physician - see pcp for bp Reason for Visit and Chief Complaint The Chief Complaint is: left knee/ Left Hip Problems Includes: Problems addressed during this encounter and other active Problems All Visits Onset Date Resolved Date Provider Condition S tatus Joint Pain in the Left Knee 10/17/2019 Yonas Grande MD Active Last Documented On 0 10:58AM ; [facility], [facility] Joint Pain, Localized in the Hip 12/07/2016 Jordy Bridges MD Active Last Documented On 7 8:58AM ; [facility], [facility] Joint Pain in the Right Knee 12/31/2015 Adrienne Grande MD Active Last Documented On 6 11:28AM ; [facility], [facility] Plan of Treatment NON-SURGICAL PLAN: CONTINUE QUAD STRENGTHENING FOLLOW UP: [address] Sepulveda; LEFT KNEE XOA - Last Documented On 01/08/2021 8:40AM ; [facility], [facility] Pending Tests Order Diagnosis Results Due Ordering P rovider Lab Orders - CC Aspirations Aerobic/Anaerobic Culture 07/29/20 Yonas Grande MD Last Documented On 1 11:58AM ; [facility], [facility] Lab Orders - CC Aspirations AFB 07/29/20 Yonas Grande MD Last Documented On 1 11:58AM ; [facility], [facility] Lab Orders - CC Aspirations Cell Count with DIFF 07/29/20 Yonas Grande MD Last Documented On 1 11:58AM ; [facility], [facility] Lab Orders - CC Aspirations Crystals 07/29/20 Yonas Grande MD Last Documented On 1 11:58AM ; [facility], [facility] Lab Orders - CC Aspirations Fungal Culture 07/20 Yonas Grande MD Last Documented On 1 11:58AM ; [facility] Lab Orders - CC Aspirations Aerobic/Anaerobic Culture 01/27/21 Roosevelt Grande MD Last Documented On 1 4:54PM ; [facility], [facility] Instructions to patient Instructions for patient See PCP for weight management and elevated BP Last Documented On 1 10:14AM ; [facility], [facility] Lose weight Last Documented On 1 10:14AM ; [facility], [facility] Assessments Includes: Assessments from this encounter Findings LEFT KNEE ASPIRATE: NO GROWTH - Last Documented On 01/08/2021 8:40AM ; [facility], [facility] 5 YEARS S/P LEFT UKA WITH PERSISTENT PAIN SINCE HE DEVELOPED EFFUSION WHILE ON XARELTO. EFFUSION GONE SINCE SWITCHED TO COUMADIN. PAIN PERSISTS. SUSPECT PAIN IS DUE TO QUAD WEAKNESS FOLLOWING CHRONIC EFFUSION. LEFT HIP MODERATE DJD BUT NO IMPROVEMENT OF KNEE PAIN WITH INJECTION. NOT SURE HE WILL PARTICIPATE WITH PHYSICAL THERAPY FOLLOWING CONVERSION TO TKA. RIGHT UKA DOING GREAT. - Last Documented On 01/08/2021 8:40AM ; [facility], [facility] Instructions Includes: Instructions from this encounter Instructions to patient Instructions for patient See PCP for weight management and elevated BP Last Documented On 1 10:14AM ; [facility], [facility] Lose weight Last Documented On 1 10:14AM ; [facility], [facility] Medical Equipment - Implanted Devices Includes: Current Devices No Medical Equipment Recorded Medications Includes: Medications discussed during this encounter and other current Medications Current Medications (continue as prescribed) Albuterol Sulfate HFA 108 (9 0 Base) MCG/ACT Inhalation Aerosol Solution 02/08/2022 Provider: Diagnosis: Last Documented On 2 11:31AM By Alva Fuentes ; [facility] Warfarin Sodium 5 MG Oral Tablet 01/24/2022 Provider : MICHELLE KOTHARI MD Diagnosis: Last Documented On 2 11:31AM By Alva Fuentes ; [facility] Bumetanide 1 MG Oral Tablet 01/16/2022 Provider: Diagnosis: Last Documented On 2 11:31AM By Alva Fuentes ; [facility] Levothyroxine Sodium 50 MCG Oral Tablet 01/12/2022 P hansder: MICHELLE KOTHARI MD Diagnosis: Last Documented On 11:31AM By Alva Fuentes ; [facility] Memantine HCl 10 MG Oral Tablet 01/10/2022 Provider: MICHELLE KOTHARI MD Diagnosis: Last Documented On 11:31AM By Alva Fuentes ; [facility] Fluticasone Propionate 50 MCG/ACT Nasal Suspension 01/2022 Provider: Diagnosis: Last Documented On 2 11:31AM By Alva Fuentes ; [facility] Citalopram Hydrobromide 20 MG Oral Tablet 12/25/2021 Provider: MICHELLE KOTHARI MD Diagnosis: Last Documented On 2 11:31AM By Alva Fuentes ; [facility] Citalopram Hydrobromide 20 MG Oral Tablet 12/25/2021 Provider: MICHELLE KOTHARI MD Diagnosis: Last Documented On 2 11:31AM By Alva Fuentes ; [facility], [facility] Atorvastatin Calcium 40 MG Oral Tablet 12/03/2021 Pr ovider: Diagnosis: Last Documented On 2 11:31AM By Alva Fuentes ; [facility] amLODIPine Besylate 5 MG Oral Tablet 12/03/2021 Prov ider: Diagnosis: Last Documented On 2 11:31AM By Alva Fuentes ; [facility] Spironolactone 25 MG Oral Tablet 12/03/2021 Provider : Diagnosis: Last Documented On 2 11:31AM By Alva Fuentes ; [facility] Bisoprolol Fumarate 5 MG Oral Tablet 12/03/2021 Prov ider: Diagnosis: Last Documented On 2 11:31AM By Alva Fuentes ; [facility], [facility] Trelegy Ellipta 100-62.5-25 MCG/ACT Inhalation Aerosol Powder Breath Activated 11/28/2021 Provider: Diagnosis: Last Documented On 2 11:31AM By Alva Fuentes ; [facility], [facility] Ipratropium-Albuterol 0.5-2.5 (3) MG/3ML Inhalat ion Solution 11/09/2021 Provider: Diagnosis: Last Documented On 2 11:31AM By Alva Fuentes ; [facility], [facility] Euthyrox 50 MCG Oral Tablet 10/10/2021 Provider: Naresh Moura Diagnosis: Last Documented On 2 11:31AM By Alva Fuentes ; [facility], [facility] Past Medications on file ProAir HFA 108 (90 Base) MCG /ACT Inhalation Aerosol Solution 07/19/2020 - 08/04/2020 Provider: Diagnosis: Last Documented On 1 11:45AM By Kely Paul ; [facility], [facility] MS Contin 15 MG Tablet Extended Release 02/11/2016 - 02/18/2016 Provider: Yonas rogers MD Diagnosis: twice a day Last Documented On 6 10:11AM By Sybil Gage ; [facility], [facility] Colace 100 MG Capsule 02/11/2016 - 05/11/2016 Provider : Yonas Grande MD Diagnosis: 1-2 tabs daily NOT TO FILL TILL 02/19/16 Last Documented On 6 10:23AM By Sybil Gage ; [facility], [facility] Keflex 500 MG Capsule 02/11/2016 - 02/14/2016 Provider : Yonas Grande MD Diagnosis: 1 every 6 hours NOT TO FILL TILL 02/19/16 Last Documented On 6 10:23AM By Sybil Gage ; [facility], [facility] Mobic 15 MG Tablet 02/11/2016 - 04/11/2016 Provider: Yonas Grande MD Diagnosis: once a day NOT TO FILL TILL 02/19/16 Last Documented On 6 10:23AM By Sybil Gage ; [facility] Neurontin 300 MG Capsule 02/11/2016 - 05/11/2016 Provi bambi: Yonas Grande MD Diagnosis: 1 every bedtime NOT TO FILL TILL 02/19/16 Last Documented On 6 10:23AM By Sybil Gage ; [facility] Zofran 4 MG Tablet 02/11/2016 - 02/21/2016 Provider: Yonas Grande MD Diagnosis: [id number] prn nausea NOT TO FILL TILL 02/19/16 Last Documented On 6 10:23AM By Sybil Gage ; [facility] Percocet 5-325 MG Tablet 02/11/2016 - 02/21/2016 Provi bambi: Yonas Grande MD Diagnosis: 1-2 po q 4-6h PRN PAIN Last Documented On 6 10:11AM By Sybil Gage ; [facility] Percocet 5-325 MG Tablet 01/30/2016 - 02/09/2016 Provi bambi: Yonas Grande MD Diagnosis: 1-2 po q 4-6h PRN PAIN Last Documented On 6 9:13AM By Debo Drake ; [facility] Percocet 5-325 MG Tablet 01/07/2016 - 01/17/2016 Provi bambi: Yonas Grande MD Diagnosis: 1-2 po q 4-6h PRN PAIN Last Documented On 6 9:52AM By Sybil Gage ; [facility] MS Contin 15 MG Tablet, controlled-release 01/07/2016 - 01/14/2016 Provider: Yonas Grande MD Diagnosis: twice a day Last Documented On 6 9:52AM By Sybil Gage ; [facility] Colace 100 MG Capsule, conventional 01/07/2016 - 04/06/2016 Provider: Yonas Grande MD Diagnosis: 1-2 tabs dailyNOT TO FILL TILL 01/10/16 Last Documented On 6 9:55AM By Sybil Gage ; [facility] Keflex 500 MG Capsule, conventional 01/07/2016 - 01/10/2016 Provider: Yonas Grande MD Diagnosis: 1 every 6 hoursNOT TO FILL TILL 01/10/16 Last Documented On 6 9:55AM By Sybil Gage ; [facility] Mobic 15 MG Tablet 01/07/2016 - 03/10/2016 Provider: Yonas Grande MD Diagnosis: once a dayNOT TO FILL TILL 01/10/16 Last Documented On 6 9:55AM By Sybil Gage ; [facility] Neurontin 300 MG Capsule, conventional 01/07/2016 - 04/06/2016 Provider: Yonas Grande MD Diagnosis: 1 every bedtimeNOT TO FILL TILL 01/10/16 Last Documented On 6 9:55AM By Sybil Gage ; [facility] Zofran 4 MG Tablet 01/07/2016 - 01/17/2016 Provider: Yonas Grande MD Diagnosis: 6kns5-4bya prn nauseaNOT TO FILL TILL 01/10/16 Last Documented On 6 9:56AM By Sybil Gage ; [facility], [facility] Medications Administered Includes: Administered Medications from this encounter No Administered Medications Recorded Vital Signs Includes: Vital Signs from this encounter Vital Name 01/02/2021 10:39A Blood Pressure Sitting (mmHg) 120/65 Pulse Rate-Sitting (bpm) 55 Height (in) 68 Note: ALBERTA Last Documented: On 01/02/2021 10:41A M ; [facility] Results Includes: Results discussed during this encounter No Results Recorded For Specified Dates History of Present Illness Includes: History of Present Illness from this encounter DHAVAL Carrillo is a 70 year old male. - Allergy list reviewed - Problem list reviewed - Medication reconciliation performed Social History Description Last Updated Not using alcohol 11/28/2020 Last Documented On 1 10:14AM ; [facility] Not a current smoker. 02/06/2020 Last Documented On 1 10:14AM ; [facility] Non-smoker 11/14/2019 Last Documented On 10:14AM ; [facility] Caffeine use 08/15/2015 Last Documented On 10:14AM ; [facility] No recent change in diet 08/15/2015 Last Documented On 10:14AM ; [facility] No tobacco use 08/15/2015 Last Documented On 10:14AM ; [facility] Not a current smoker 08/15/2015 Last Documented On 10:14AM ; [facility] Not exercising regularly 08/15/2015 Last Documented On 10:14AM ; [facility] Not using drugs 08/15/2015 Last Documented On 10:14AM ; [facility] Smoking status : Never smoker 08/15/2015 Last Documented On 10:14AM ; [facility], [facility] Procedures and Surgical History Includes: Procedures from this encounter Procedures Code Diagnosis Performing Provider Service L ocation Service Date history of orthopedic options: physical therapy Last Documented On 1 10:14AM ; [facility], [facility] use of tobacco assessment performed 1000F Last Documented On 10:14AM ; [facility] referral to physician see pcp for bp Last Documented On 10:14AM ; [facility] Surgical History Last Updated History of appendectomy 08/15/2015 Last Documented On 10:14AM ; [facility], [facility] History of back surgery 08/15/2015 Last Documented On 10:14AM ; [facility] History of hernia repair 08/15/2015 Last Documented On 10:14AM ; [facility] History of total hip replacement 016 Last Documented On 10:14AM ; [facility] Medical History Includes: Medical History addressed during this encounter Description Last Updated Arthritis 02/06/2020 Last Documented On 10:14AM ; [facility] Heartburn / Acid Reflux 02/06/2020 Last Documented On 1 10:14AM ; [facility] History of Blood Clots 02/06/2020 Last Documented On 1 10:14AM ; [facility] History of diverticulitis of colon 02/05 Last Documented On 1 10:14AM ; [facility] History of Rheumatology 02/06/2020 Last Documented On 1 10:14AM ; [facility] Hypertension 02/06/2020 Last Documented On 1 10:14AM ; [facility] Sleep Apnea 02/06/2020 Last Documented On 1 10:14AM ; [facility] Thyroid Disease 02/06/2020 Last Documented On 1 10:14AM ; [facility] A recent immunization for flu 02/06/2020 Last Documented On 1 10:14AM ; [facility] A recent immunization for pneumococcal p neumonia 02/06/2020 Last Documented On 1 10:14AM ; [facility] Appendectomy 02/06/2020 Last Documented On 1 10:14AM ; [facility] Back surgery 02/06/2020 Last Documented On 1 10:14AM ; [facility] Hernia repair 02/06/2020 Last Documented On 1 10:14AM ; [facility] Total knee arthroplasty 02/06/2020 Last Documented On 1 10:14AM ; [facility] blood clots 01/19/2019 Last Documented On 1 10:14AM ; [facility] A recent injection 01/19/2019 Last Documented On 1 10:14AM ; [facility] History of heart disease 01/19/2019 Last Documented On 1 10:14AM ; [facility] Intermittent hypertension 01/19/2019 Last Documented On 1 10:14AM ; [facility] Arthritic joint problems 08/15/2015 Last Documented On 1 10:14AM ; [facility] History of hepatitis 08/15/2015 Last Documented On 1 10:14AM ; [facility] Family History Includes: Family History addressed during this encounter Description Last Updated Stroke / Seizures 02/06/2020 Last Documented On 1 10:14AM ; [facility] Family history of thromboembolic disease 01/19/2019 Last Documented On 1 10:14AM ; [facility] No significant family history 12/07/2016 Last Documented On 1 10:14AM ; [facility] Review of Systems Includes: Review of [...] complaint of seasonal allergic reaction. reviewed on 11/28/2020 Mental Status Includes: Mental Status from this encounter Description No anxiety Functional Status Includes: Functional Status from this encounter No Functional Status Recorded Physical Exam Includes: Physical Exam from this encounter Allergies Includes: Active Allergies No Known Allergies Encounters Encounter Provider Location Date Check-In Time Check-Out Time Diagnosis Follow Up Yonas Grande MD [facility] 01/03/20 21 10:09AM 11:30AM Insurance Includes: Active Insurance Policies Plan Name Member ID Group # Subscriber Relationship Effect brandy Dates 1 - Medicare Part B Psychiatric [id number] Reji Brooks [place] Self 09/19/2017 - Unknown 2 - [employer] [place] [id number] Reji Brooks [place] Self 09/19/2017 - Unknown Clinical Notes Includes: Clinical Notes from this encounter No Clinical Notes Recorded
== END 2024-06-29 23:59 | disposition home or self-care (01) ==
LOC: LAB 14:19
PROVIDERS: PCP Internal Medicine Adolescent Medicine; Visit Provider Internal Medicine Medical Oncology
DX: D68.59 Other primary thrombophilia (principal)
CPT/HCPCS: 36415; 85025

== ENCOUNTER 2024-09-11 09:28 | Outpatient (POV) | payer MEDICARE, SELFPAY ==
--- OUTSIDE RECORDS SUMMARY | 2024-08-09 11:45 | XMS_ITS ---
Author Organization [facility] D BASSEM Address [address] [place] [address] Care Team Providers Care Senior Technical Program Manager Name Role Phone Maurilio Hi Primary Care Provider Allergies No Known Allergies Results Component Value Reference Range Notes BASIC METABOLIC PANEL (98937 ) Reviewed date:08/11/2024 12:39:58 PM Interpretation: Performing Lab:CB, [facility] [address], [id number] Fredi Mendoza Notes/Report: NON-FASTING GLUCOSE 96 65-99 mg/dL Fasting reference interval UREA NITROGEN (BUN) 23 7-25 mg/dL CREATININE 1.35 0.70-1.28 mg/dL EGFR 56 > OR = 60 mL/min/1.73m2 BUN/CREATININE RATIO 17 6-22 (calc) SODIUM 142 135-146 mmol/L POTASSIUM 4.1 3.5-5.3 mmol/L CHLORIDE 102 98-110 mmol/L CARBON DIOXIDE 31 20-32 mmol/L CALCIUM 9.7 8.6-10.3 mg/dL REASON FOR VISIT 2 Week F/U, still having rashes on face Medications Medication SIG (Take, Route, Frequency, Duration) Notes Start Date End Date Status Clobetasol Propionate 0.05 % 1 vasyl applied topically 2 times a day for 14 days 05/22/2024 Active Senna 8.6 MG 1 tab(s) orally once a day (at bedtime) for 90 days Active metOLazone 5 MG 1 tab(s) orally once a day for 30 days 05/18/2024 Active Apixaban 5 MG as directed orally 2 times a day Active Citalopram Hydrobromide 20 MG 1 tab(s) orally once a day for 90 days Active PROAIR HFA 90 MCG/INH INHALE 2 PUFFS BY MOUTH EVERY 4 HOURS NEEDED for 50 *Please review for potential replacement for e-prescription and drug interaction check* Active Bumetanide 1 MG 2tabs orally in the morning for 30 days Active Atorvastatin Calcium 80 MG 1 tab(s) orally once a day for 30 days Active Euthyrox 50 MCG (0.05 MG) 1 TAB(S) ORALLY ONCE A DAY for 30 DAYS *Please review and pick correct strength-formulati on from AtheroNova options. If intended option is not shown, discontinue and re-order from Quick Search* Active Memantine HCl 10 MG 1 tab orally twice a day for 30 days Active OXYGEN CONSERVER DIRECTED DX: J44.9 DIRECTED 2L *Please review for potential replacement for e-prescription and drug interaction check* 08/09/2017 Active Vitamin B1 100 MG 1 tab(s) orally once a day for 7 day(s) Active Tylenol 325 MG 2 tab(s) orally every 6 hours Active Carvedilol 3.125 MG 1 tab(s) orally 2 times a day Active MiraLax - DIRECTED ORALLY ONCE A DAY prn *Please review and pick correct strength-formulati on from Athe[employer]Nova options. If intended option is not shown, discontinue and re-order from Quick Search* Active Xhance 93 MCG/ACT 2 sprays (1 spray in each nostril) Nasally Twice a day Active Vitamin D (Ergocalciferol) 1.25 MG (34309 UT) 1 cap(s) orally every 2 weeks Active CPAP MACHINE WITH ADULT SETUP *Please review for potential replacement for e-prescription and drug interaction check* Active Trelegy Ellipta 100 MCG-62.5 MCG-25 MCG/INH 1 INH INHALED ONCE A DAY *Please review and pick correct strength-formulati on from AtheroNova options. If intended option is not shown, discontinue and re-order from Quick Search* Active Levocetirizine Dihydrochloride 5 MG 1 tab(s) orally once a day (in the evening) Active Eliquis 5 MG as directed Orally Active Social History Tobacco Use: Social History Observation Description Date Details (start date - stop date) Former Smoker NA - NA Smoking: Question Answer Notes Are you a: former smoker How long has it been since you last smoked? > 10 years Vital Signs Temperature 97.8 degrees Fahrenheit 08/10/19 25 Heart Rate 96 /min 08/09/2024 Blood pressure systolic 114 mm Hg 08/10/19 25 Blood pressure diastolic 62 mm Hg 025 Height 66.5 in 08/09/2024 Weight 252 lbs 08/09/2024 BMI 40.06 kg/m2 08/09/2024 Encounters Encounter Location Date Provider Diagnosis [facility] PED [facility] [address] [place] [address] 08/09/2024 Maurilio Hi Diastolic CHF with preserved left ventricular function, NYHA class 2 I50.30 ; Seborrheic dermatitis L21.9 and Other seasonal allergic rhinitis J30.2 Assessments Encounter Date Diagnosis (ICD Code) Assessment Notes Treatment Notes Treatment Clinical Notes Section Notes 08/09/2024 Diastolic CHF with preserved left ventricular function, NYHA class 2 (ICD-10 - I50.30) -sx well controlled on kiko metolazone and bumex w/weight based PRN -BMP today to assess renal function on increased diuretic dosing, if stable OK for routine followup 08/09/2024 Seborrheic dermatitis (ICD-10 - L21.9) -cont clobetasol solution, reccs to use selenium sulfide shampoo as a facial wash + scalp wash considering dandruff improvement w/scalp use. 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 2 Week F/U. 2. Still having rashes on face. 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 Medical therapy recommended, Wound on Left Hip. 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 * Hospitalization/Major Diagno stic Procedure: a ll above surgeries , blood clot-lt leg and lung, kidney failure, lack of oxygen 02/2016, Lt leg surgery-[place] 02/2024, [facility] 03/2024. * Family History: F ather: . M other: , diagnosed with Stroke. P aternal Grand Father: . P aternal Grand Mother: . M aternal Grand Father: . M aternal Grand Mother: . P aternal uncle: alive, one . P aternal aunt: alive. M aternal uncle: . M aternal aunt: alive. S iblings: alive, mild diabetes and mild heart disease. C hildren: alive, one , other son is healthy. 3 sister(s) - healthy. 2 son(s) . . * Social History: S moking A re you a: f ormer smoker, H ow long has it been since you last smoked??> 10 years. R ecreational drug use: no. Exercise: no. Home smoke detector use: yes. Caffeine: yes, frequency: 1 cup coffee. Living Will: No. Alcohol: no. Sexually active: yes. Travel outside [place]: no. Occupation: Retired. * Medications: T aking Eliquis 5 MG Tablet as directed Orally , Taking Xhance 93 MCG/ACT Exhaler Suspension 2 sprays (1 spray in each nostril) Nasally Twice a day , Taking Vitamin D (Ergocalciferol) 1.25 MG (28309 UT) Capsule 1 cap(s) orally every 2 weeks , Taking CPAP MACHINE WITH ADULT SETUP , Notes to Pharmacist: *Please review for potential replacement for e-prescription and drug interaction check*, Taking Trelegy Ellipta 100 MCG-62.5 MCG-25 MCG/INH POWDER 1 INH INHALED ONCE A DAY , Notes to Pharmacist: *Please review and pick correct strength-formulation from [employer] options. If intended option is not shown, discontinue and re-order from Quick Search*, Taking Levocetirizine Dihydrochloride 5 MG Tablet 1 tab(s) orally once a day (in the evening) , Taking Tylenol 325 MG Tablet 2 tab(s) orally every 6 hours , Taking Carvedilol 3.125 MG Tablet 1 tab(s) orally 2 times a day , Taking MiraLax - POWDER FOR RECONSTITUTION DIRECTED ORALLY ONCE A DAY , Notes to Pharmacist: prn *Please review and pick correct strength-formulation from [employer] options. If intended option is not shown, discontinue and re-order from Quick Search*, Taking OXYGEN CONSERVER DIRECTED DX: J44.9 DIRECTED [...] *Please review and pick correct strength-formulation from [employer]ova options. If intended option is not shown, [...] vasyl applied topically 2 times a day , Medication List reviewed and reconciled with the patient * Allergies: N .K.D.A. Objective: * Vitals: N urse: jl, Pain: 7, Temp: 97.8, RR: 20, HR: 96, BP: 114/62, Ht: 66.5, Wt: 252, BMI:40.06. * Examination: G eneral Examination: General c hronically ill appearing elderly man, breathing through pursed lips but stable and c/w prior, asymptomatic. Heart: R egular Rate and Rhythm, no murmur, rubs or gallops. Lungs: L CTAB, No wheezes, crackles or rhonchi, Good air movement,. Abdomen: A Ox3 and carrying a can. Neurologic Exam: A Ox3 and carrying a cane. Skin: g reasy scaling lesions overlying light pink erythema of the penny and BL ears. Peripheral pulses: n ormal (2+) bilaterally. Psych N ormal Mood/Affect. Assessment: * Assessment: 1. D iastolic CHF with preserved left ventricular function, NYHA class 2 - I50.30 (Primary)? 2. S eborrheic dermatitis - L21.9 3 . O ther seasonal allergic rhinitis - J30.2 Plan: * Treatment: Value Reference Range G LUCOSE 96 65-99 - mg/dL * U JADE NITROGEN (BUN) 23 7-25 - mg/dL * C REATININE 1.35 H 0.70-1.28 - mg/dL * B UN/CREATININE RATIO 17 6-22 - (calc) * S ODIUM 142 135-146 - mmol/L * P OTASSIUM 4.1 3.5-5.3 - mmol/L * C HLORIDE 102 98-110 - mmol/L * C ARBON DIOXIDE 31 20-32 - mmol/L * C ALCIUM 9.7 8.6-10.3 - mg/dL * E GFR 56 L > OR = 60 - mL/min/1 .73m2 * This lab was reviewed by Arlene Ramos on 08/11/2024 at 12:39 PM EDT Notes: -sx well controlled on kiko metolazone and bumex w/weight based PRN -BMP today to assess renal function on increased diuretic dosing, if stable OK for routine followup ?2.?Seborrheic dermatitis? Notes: -cont clobetasol solution, reccs to use selenium sulfide shampoo as a facial wash + scalp wash considering dandruff improvement w/scalp use. -RTC if sx do not improve, can try ketoconazole shampoo at that time if needed?? 3.?Other seasonal allergic rhinitis? 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 * Follow Up: p rn * * Sign off status: Completed true * Provider: Abdiaziz Hi MD Date: 0 08/09/2024 Generated for [facility] ng/Fakedarg/eTransmitting on: 0 09/11/2024 09:44 AM EDT History and Physical Notes * HPI (History of Present Illness) Category Sub-Category Detail Notes Category Not es gen Pt and partner present, swelling in the LE imoproved and resp status stable w/PRN bumex Using PRN dosing abut every other day since starting to maintain dry weight Has a lot of dandruff, rash following the penny line and on the lower pinnae c/f daquan derm--imporved on scalp w/selenium shanpoo, reccs to expand use to face and ears and observe for improvement before escalating to ketoconazole shampoo Needs someone to write his Xhance Rx going forward, 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 Examination Category Sub-Category Detail Notes Category Not es General Examination Heart: Regular Rate and Rhythm, no murmur, rubs or gallops Lungs: LCTAB, No wheezes, c rackles or rhonchi, Good air movement, Abdomen: AOx3 and carrying a can Skin: greasy scaling lesio ns overlying light pink erythema of the penny and BL ears Neurologic Exam: AOx3 and carrying a cane Peripheral pulses: normal (2+) bilatera lly General chronically ill appe aring elderly man, breathing through pursed lips but stable and c/w prior, asymptomatic Psych Normal Mood/Affect
--- OUTSIDE RECORDS SUMMARY | 2024-08-28 11:00 | XMS_ITS ---
Author Organization [facility] Address [address] [place] [address] Care Team Providers Care Plant Tour Guide Name Role Phone Maurilio Hi Primary Care Provider [phone] Allergies No Known Allergies REASON FOR VISIT wound care has concerns about wound on leg Medications Medication SIG (Take, Route, Frequency, Duration) Notes Start Date End Date Status Senna 8.6 MG 1 tab(s) orally once a day (at bedtime) for 90 days Active Apixaban 5 MG as directed orally 2 times a day Active metOLazone 5 MG 1 tab(s) orally once a day for 30 days 05/18/2024 Active Citalopram Hydrobromide 20 MG 1 tab(s) orally once a day for 90 days Active Clobetasol Propionate 0.05 % 1 vasyl applied topically 2 times a day for 14 days 05/22/2024 Active Memantine HCl 10 MG 1 tab orally twice a day for 30 days Active Euthyrox 50 MCG (0.05 MG) 1 TAB(S) ORALLY ONCE A DAY for 30 DAYS *Please review and pick correct strength-formulati on from [employer] options. If intended option is not shown, discontinue and re-order from Quick Search* Active Bumetanide 1 MG 2tabs orally in the morning for 30 days Active PROAIR HFA 90 MCG/INH INHALE 2 PUFFS BY MOUTH EVERY 4 HOURS NEEDED for 50 *Please review for potential replacement for e-prescription and drug interaction check* Active Atorvastatin Calcium 80 MG 1 tab(s) orally once a day for 30 days Active MiraLax - DIRECTED ORALLY ONCE A DAY prn *Please review and pick correct strength-formulati on from [employer] options. If intended option is not shown, discontinue and re-order from Quick Search* Active Carvedilol 3.125 MG 1 tab(s) orally 2 times a day Active Tylenol 325 MG 2 tab(s) orally every 6 hours Active Vitamin B1 100 MG 1 tab(s) orally once a day for 7 day(s) Active OXYGEN CONSERVER DIRECTED DX: J44.9 DIRECTED 2L *Please review for potential replacement for e-prescription and drug interaction check* 08/09/2017 Active Trelegy Ellipta 100 MCG-62.5 MCG-25 MCG/INH 1 INH INHALED ONCE A DAY *Please review and pick correct strength-formulati on from [employer] options. If intended option is not shown, discontinue and re-order from Quick Search* Active Levocetirizine Dihydrochloride 5 MG 1 tab(s) orally once a day (in the evening) Active Xhance 93 MCG/ACT 2 sprays (1 spray in each nostril) Nasally Twice a day Active CPAP MACHINE WITH ADULT SETUP *Please review for potential replacement for e-prescription and drug interaction check* Active Vitamin D (Ergocalciferol) 1.25 MG (82560 UT) 1 cap(s) orally every 2 weeks Active Eliquis 5 MG as directed Orally Active Vital Signs Temperature 97.7 degrees Fahrenheit 08/29/19 25 Heart Rate 80 /min 08/28/2024 Blood pressure systolic 100 mm Hg 08/29/19 25 Blood pressure diastolic 50 mm Hg 025 Height 66.5 in 08/28/2024 Weight 258 lbs 08/28/2024 BMI 41.01 kg/m2 08/28/2024 Encounters Encounter Location Date Provider Diagnosis [facility] [address] [place] [address] 08/28/2024 Maurilio Hogueselina Wound of left lower extremity, sequela S81.802S Assessments Encounter Date Diagnosis (ICD Code) Assessment Notes Treatment Notes Treatment Clinical Notes Section Notes 08/28/2024 Wound of left lower extremity, sequela (ICD-10 - S81.802S) I do not see any concern for infection, poor wound healing, etc. I think the keloid will be there and possibly even developed larger. I think the girth increase in his leg is from this. The calf is not swollen, he has no pulse deficits. Reassured he and his . Recommended mild compression if it bothers him Plan Of Treatment Treatment Notes Assessment Notes Wound of left lower extremity, sequela I do not see any concern for infection, poor wound healing, etc. I think the keloid will be there and possibly even developed larger. I think the girth increase in his leg is from this. The calf is not swollen, he has no pulse deficits. Reassured he and his . Recommended mild compression if it bothers him Next Appt Details Follow Up: prn, Reason: Provider Name:Maurilio Hi, 10/30/2024 12:00:00 PM, [address] [facility] [address], [place], [address], Progress Notes * Reji WELLERDOB: [birth year] (73 yo M)Acc No.[id number]:08/28/2024 Progress Notes Patient: Reji UCADRA Provider: Abdiaziz Hi MD :1950 A ge:73 Y S ex:Male Date:08/28/2024 Address:[address], [id number] Subjective: * Chief Complaints: * 1 . Wound care has concerns about wound on leg. * HPI: g en: Here today at the request of wound care nurse. They have been doing wound VAC and other dressing changes. They are concerned about the girth of his leg as well as the appearance of the wound on his left thigh. 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 Medical therapy recommended, Wound on Left Hip. * Medications: T aking Eliquis 5 MG Tablet as directed Orally , Taking Xhance 93 MCG/ACT Exhaler Suspension 2 sprays (1 spray in each nostril) Nasally Twice a day , Taking Vitamin D (Ergocalciferol) 1.25 MG (75513 UT) Capsule 1 cap(s) orally every 2 weeks , Taking CPAP MACHINE WITH ADULT SETUP , Notes to Pharmacist: *Please review for potential replacement for e-prescription and drug interaction check*, Taking Trelegy Ellipta 100 MCG-62.5 MCG-25 MCG/INH POWDER 1 INH INHALED ONCE A DAY , Notes to Pharmacist: *Please review and pick correct strength-formulation from [facility] options. If intended option is not shown, [...] *Please review and pick correct strength-formulation from [facility] options. If intended option is not shown, [...] *Please review and pick correct strength-formulation from [facility] options. If intended option is not shown, [...] N .K.D.A. Objective: * Vitals: N urse: be, Pain: 6, Temp: 97.7, RR: 20, HR: 80, BP: 100/50, Ht: 66.5, Wt: 258, BMI:41.01. * Examination: G eneral Examination: Hayley cuellar has a long, 20 cm healed incision chang on the lateral aspect of the left thigh, ending before the trochanter and beginning about 2 inches above the knee joint. It is from his fasciotomy and actually looks really good. There is a keloid forming around the very long scar, and its approximately 4 cm wide. However, there is no seeping, fluctuance, crepitus, redness or heat. looks really good. Assessment: * Assessment: 1. W ound of left lower extremity, sequela - S81.802S (Primary) Plan: * Treatment: * Follow Up: p rn * * Sign off status: Completed true * Provider: Abdiaziz Hi MD Date: 08/28/2024 Generated for Tierney abad/Lisa/Ricardosmitting on: 09/11/2024 09:44 AM EDT History and Physical Notes * HPI (History of Present Illness) Category Sub-Category Detail Notes Category Not es gen Here today at t he request of wound care nurse. They have been doing wound VAC and other dressing changes. They are concerned about the girth of his leg as well as the appearance of the wound on his left thigh. Examination Category Sub-Category Detail Notes Category Not es General Examination Patient has a long, 20 cm healed incision chang on the lateral aspect of the left thigh, ending before the trochanter and beginning about 2 inches above the knee joint. It is from his fasciotomy and actually looks really good. There is a keloid forming around the very long scar, and its approximately 4 cm wide. However, there is no seeping, fluctuance, crepitus, redness or heat. looks really good.
--- OUTSIDE RECORDS SUMMARY | 2024-08-30 12:00 | XMS_ITS ---
Author Organization [facility] Address [address] [facility] [address] [facility] [address] [place] [address] Care Team Providers Care Furnace Builder Name Role Phone Maurilio Hi Primary Care Provider [phone] REASON FOR VISIT 4 week follow up Encounters Encounter Location Date Provider Diagnosis [facility] [address] [facility] [address] [place], [place] [address] 08/30/2024 Maurilio Hi Plan Of Treatment Next Appt Details Provider Name:Maurilio Hi, 10/30/2024 12:00:00 PM, [address] [facility] [address] [facility], [address], [place], [place], [address], Progress Notes * Reji WELLER CeciliaDOB: [birth year] (73 yo M)Acc No.[id number]:08/30/2024 Progress Notes Patient: Reji CUADRA Provider: Abdiaziz iH MD :1950 A ge:73 Y S ex:Male Date:08/30/2024 Address:[address] [id number] Subjective: * Chief Complaints: * 1 . 4 week follow up. * Medical History: Objective: * Vitals: Assessment: Plan: * Treatment: * * Electronic signature of Robert Hi MD FAAP on 09/11/2024 at 09:44 AM EDT Sign off status: Pending * Provider: Abdiaziz Hi MD Date: 0 08/30/2024 Generated for Tierney abad/Lisa/Kenyatta on: 0 09/11/2024 09:44 AM EDT
--- OUTSIDE RECORDS SUMMARY | 2024-09-11 09:45 | XMS_ITS | Data Portability ---
Author Organization [facility] AD[facility] Address [address] [place] [id number] Assessment No assessment recorded. Plan of Treatment Reminders Order Date Submit Date Provider Last Modified By Organization Details Last Modified Time Details Appointments None record ed. Lab None record ed. Referral None record ed. Procedures None record ed. Surgeries None record ed. Imaging None record ed. Medication Orders None record ed. Patient TargetsNo targets recorded. Patient InstructionsNo instructions recorded. Reason for Referral None Reported. Results Created Date Observation Date Name Description Value Unit Range Abnormal Flag Note LastModifiedBy Organization Detail LastModifiedTime 10/26/19 24 US, abdom en No observ ation record ed. Not Available 2023 15:51:53 Result Notes None recorded. Procedures Surgical History Date Name Laterality Status Provider Name and Address Organization Details Recorded Time 03/22/19 19 Joint Replacement completed Thierry HAMLIN - [facility] [place] [facility] [place] 10/28/2023 14:08:33 03/22/19 18 Colonoscopy completed Thierry HAMLIN - [facility] [place] 10/28/2023 14:08:33 03/22/19 18 Hip Surgery completed Thierry HAMLIN - [facility] [place] 10/28/2023 14:08:33 03/22/19 05 LASIK completed Thierry HAMLIN - [facility] [place] 10/28/2023 14:08:33 03/22/18 85 Back Surgery completed Thierry HAMLIN - [facility] [place] 10/28/2023 14:08:33 03/22/18 62 Other completed Thierry HAMLIN - [facility] [place] 10/28/2023 14:08:33 01/01/19 62 Appendectomy completed Thierry HAMLIN - [facility] [place] 10/28/2023 14:08:33 03/22/18 55 Tonsillectomy/Ad enoidectomy completed Thierry HAMLIN - [facility] [place] 10/28/2023 14:08:33 03/22/18 54 Splenectomy completed Thierry HAMLIN - [facility] [place] 10/28/2023 14:08:33 Imaging Results None recorded. Procedure Notes None recorded. Medical Equipment None Reported. Allergies No known drug allergies Medications Name Sig Start Date Stop Date Status Note LastModified by Organization Details LastModified Time atorvastati n 80 mg tablet TAKE 1 TABLET BY MOUTH ONCE DAILY active Not Available Not Available No t Available doxycycline hyclate 100 mg capsule 10/26 completed Not Available Not Available Not Available ipratropium 0.5 mg-albutero l 3 mg (2.5 mg base)/3 mL nebulizatio n soln USE 3 ML VIA NEBULIZER FOUR TIMES DAILY NEEDED FOR SHORTNESS OF BREATH OR WHEEZING 10/26 completed Not Available Not Available Not Available nystatin 100,000 unit/gram topical ointment active Not Available Not Available Not Available amlodipine 5 mg tablet TAKE 1 TABLET BY MOUTH ONCE DAILY 10/26 completed Not Available Not Available Not Available carvedilol 3.125 mg tablet TAKE 1 TABLET BY MOUTH TWICE DAILY active Not Available Not Available No t Available citalopram 20 mg tablet TAKE 1 TABLET BY MOUTH ONCE DAILY FOR DEMENTIA active Not Available Not Available No t Available levothyroxi ne 50 mcg tablet TAKE 1 TABLET BY MOUTH ONCE DAILY active Not Available Not Available No t Available triamcinolo ne acetonide 0.1 % topical ointment active Not Available Not Available Not Available warfarin 5 mg tablet TAKE 1 & 1/2 (ONE & ONE-HALF) TABLETS BY MOUTH ONCE DAILY OR DIRECTED active Not Available Not Available No t Available bumetanide 1 mg tablet TAKE 2 TABLETS BY MOUTH ONCE DAILY active Not Available Not Available No t Available mupirocin 2 % topical ointment APPLY A SMALL AMOUNT TOPICALLY TO THE AFFECTED AREA TWICE DAILY FOR 10 DAYS active Not Available Not Available No t Available cefuroxime axetil 500 mg tablet 10/26 completed Not Available Not Available Not Available methylpredn isolone 4 mg tablets in a dose pack TAKE BY MOUTH DIRECTED ON INSIDE OF PACKAGE 10/26 completed Not Available Not Available Not Available fluticasone propionate 50 mcg/actuati on nasal spray,suspe nsion USE 2 SPRAY(S) IN EACH NOSTRIL ONCE DAILY active Not Available Not Available No t Available clotrimazol e 1 % topical cream active Not Available Not Available Not Available memantine 10 mg tablet TAKE 1 TABLET BY MOUTH TWICE DAILY FOR DEMENTIA active Not Available Not Available No t Available levocetiriz ine 5 mg tablet TAKE 1 TABLET BY MOUTH ONCE DAILY DIRECTED FOR ALLERGIES active Not Available Not Available No t Available Anoro Ellipta 62.5 mcg-25 mcg/actuati on powder for inhalation INHALE 1 PUFF BY MOUTH ONCE DAILY 10/26 completed Not Available Not Available Not Available Jardiance 10 mg tablet TAKE 1 TABLET BY MOUTH ONCE DAILY 10/26 completed Not Available Not Available Not Available Trelegy Ellipta 100 mcg-62.5 mcg-25 mcg powder for inhalation INHALE 1 PUFF BY MOUTH ONCE DAILY FOR 90 DAYS active Not Available Not Available No t Available Vitals Date Recorded Body weight Body mass index (BMI) Body height Body temperature Oxygen saturation Oxygen saturation in Arterial blood by Pulse oximetry Heart rate Systolic blood pressure Diastolic blood pressure Provider Name and Address Organization Details Last Updated DateTime 296897. 65 g 42.6 kg/m2 165.1 cm 98.4 [degF] 88 % 88 % 98 /min 124 mm[Hg] 64 mm[Hg] [place] [facility] [place] 14:13:24 Social History Question Answer Notes LastModified by Organizat ion Details LastModified Time Tobacco Smoking Status Never Smoker [facility] [place] 10/28/2023 14:08:27 Do You Have An Advance Directive? No [email or web address] Information not available 10/28/2023 Are You Blind Or Do You Have Difficulty Seeing? No [email or web address] Information not available 10/28/2023 What Was The Date Of Your Most Recent Tobacco Screening? 10/27/2023 [email or web address] Information not available 10/28/2023 Are You Passively Exposed To Smoke? No [email or web address] Information not available 10/28/2023 How Much Tobacco Do You Smoke? No [email or web address] Information not available 10/28/2023 How Many Years Have You Smoked Tobacco? 0 [email or web address] Information not available 10/28/2023 Sex: Male Functional Status Question Answer Note LastModified by Organizat ion Details LastModified Time Do you use any illicit or recreational drugs? No [email or web address] Information not available 10/28/2023 What is your level of alcohol consumption? Moderate [email or web address] Information not available 10/28/2023 Do you or have you ever used smokeless tobacco? Never used smokeless tobacco [email or web address] Information not available 10/28/2023 What is your exercise level? Occasional Information not available 10/28/2023 Mental Status Question Answer Note LastModified by Organization D etails LastModified Time Do you feel stressed (tense, restless, nervous, or anxious, or unable to sleep at night)? [id number] Information not available 10/28/2023 Family History Nothing Reported. Medical History Condition Response Obesity Y Clotting Disorder Y Arthritis Y High Cholesterol Y Congestive Heart Failure (CHF) Y Back Problems Y Deep Vein Thrombosis Y Hypertension Y Obstructive Sleep Apnea Y COPD Y Past Encounters Encounter ID Performer Location Encounter Start Date Encounter Closed Date Diagnosis/Indication Diagnosis SNOMED-CT Code Diagnosis ICD10 Code Diagnosis Note [id number] Nanda Knox MD [facility] Gen Surg [facility] [address] [facility] [address] [place] [address] 10/28/2023 13:42:36 10/28/2023 14:42:05 [place] 425838951 K80.20 Occasional ly symptomati c cholelithi asis. Overall the patient is a poor operative candidate at present. At the very least he was recommende briana for heart catheteriz ation and this has not been completed. I have recommende briana that he contact his cardiologi st regarding this. We did discuss laparoscop ic cholecyste ctomy including risks of bleeding, infection, damage to surroundin g structures . Chronic ob structive pulmonary disease 96142100 J44.9 COPD, not oxygen dependent. Patient walked down the hallway x2 on the way to the appointmen t and is visibly short of air. Coronary arteriosclerosis 59135917 I25.10 Known coronary artery disease, currently maintained on warfarin. Patient has had recent chest pain and is being recommende d for heart catheteriz ation. Follow-up with me if gallbladde r symptoms worsen and if able to undergo surgical interventi on. Time spent in review of old records was 35 minutes. Time spent in discussion face-to-fa ce with patient of risk factors and pathology was 30 minutes Health Concerns Section Related Observation LastModified by Organization Detai ls LastModified Time None Recorded Concern Status LastModified by Organization Details LastModified Time None Recorded Advance Directives Directive N: Payers Insurance Date Sequence Insurance Name Policy Number Policy Hope Covered Member ID Hope Member ID Guarantor Name 10/28/2023 1 [place]ARE[place] (MEDICARE) [facility] [id number] [facility] 10/28/2023 2 [employer] SU[employer] - [employer] (MEDICARE SUPPLEMENT) [facility] [id number] [facility] Notes Date Note Type Note Provider Name and Address Organization Details Recorded Time 10/28/2023 text/html 73-year-old man referred for gallstones. He states that he rarely has right upper quadrant pain. It does seem to be postprandial, especially after eating fatty foods. The pain is mild to moderate and infrequent. He has occasional loose stools. Right upper quadrant ultrasound shows gallstones. I have reviewed the patient's records from his PCP as well as numerous recent visits with cardiology. He has COPD with shortness of air walking up a flight of stairs. Patient has also had recent chest pain with extensive workup with cardiology in [place]. 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 Patient states that he has not been contacted regarding this. Nanda Knox MD [address] [place] [address], [place], [address], [facility] [place] 10/28/2023 15:53:21
--- OUTSIDE RECORDS SUMMARY | 2024-09-11 09:45 | XMS_ITS | Patient Health Record ---
Author Organization [facility] Address [address] [place] [address] Care Team Providers Care Blasting Clay Miner Name Role Phone Maurilio Hi Primary Care Provider [phone] Migration, Provider Unavailable Unavailable Allergies No Known Allergies Results Component Value Reference Range Notes BASIC METABOLIC PANEL (41583 ) Reviewed date:08/11/2024 12:39:58 PM Interpretation: Performing Lab:[facility], [facility] [id number] [employer], Quantum [id number] Fredi Mendoza Notes/Report: NON-FASTING GLUCOSE 96 65-99 mg/dL Fasting reference interval UREA NITROGEN (BUN) 23 7-25 mg/dL CREATININE 1.35 0.70-1.28 mg/dL EGFR 56 > OR = 60 mL/min/1.73m2 BUN/CREATININE RATIO 17 6-22 (calc) SODIUM 142 135-146 mmol/L POTASSIUM 4.1 3.5-5.3 mmol/L CHLORIDE 102 98-110 mmol/L CARBON DIOXIDE 31 20-32 mmol/L CALCIUM 9.7 8.6-10.3 mg/dL Ultrasound : Abdomen Reviewed date:06/12/2024 11:42:24 AM Interpretation: Performing Lab: Notes/Report: THYROID PANEL WITH TSH (7444 ) Reviewed date:05/24/2024 11:17:01 AM Interpretation: Performing Lab:CB, [facility] [id number] Mittel [employer], [id number] Fredi Mendoza Notes/Report: NON-FASTING; NON-FASTING; NON-FASTING; NON-FASTING; NON-FAST T3 UPTAKE 27 22-35 % T4 (THYROXINE), TOTAL 6.6 4.9-10.5 mcg/dL FREE T4 INDEX (T7) 1.8 1.4-3.8 TSH 1.94 0.40-4.50 mIU/L COMPREHENSIVE METABOLIC PANE L (09403) Reviewed date:05/24/2024 11:17:01 AM Interpretation: Performing Lab:[facility] [id number] [employer], [facility] [id number] Fredi Mendoza Notes/Report: NON-FASTING; NON-FASTING; NON-FASTING; NON-FASTING; NON-FAST GLUCOSE 113 65-99 mg/dL Fasting reference interval For someone without known diabetes, a glucose value between 100 and 125 mg/dL is consistent with prediabetes and should be confirmed with a follow-up test. UREA NITROGEN (BUN) 29 7-25 mg/dL CREATININE 1.32 0.70-1.28 mg/dL EGFR 58 > OR = 60 mL/min/1.73m2 BUN/CREATININE RATIO 22 6-22 (calc) SODIUM 138 135-146 mmol/L POTASSIUM 3.8 3.5-5.3 mmol/L CHLORIDE 93 98-110 mmol/L CARBON DIOXIDE 31 20-32 mmol/L CALCIUM 9.9 8.6-10.3 mg/dL PROTEIN, TOTAL 7.5 6.1-8.1 g/dL ALBUMIN 4.3 3.6-5.1 g/dL GLOBULIN 3.2 1.9-3.7 g/dL (calc) ALBUMIN/GLOBULIN RATIO 1.3 1.0-2.5 (calc) BILIRUBIN, TOTAL 0.6 0.2-1.2 mg/dL ALKALINE PHOSPHATASE 107 35-144 U/L AST 20 10-35 U/L ALT 14 9-46 U/L MAGNESIUM (622) Reviewed date:05/24/2024 11:17:01 AM Interpretation: Performing Lab:[facility] [id number] [employer], [id number] Fredi Mendoza Notes/Report: NON-FASTING; NON-FASTING; NON-FASTING; NON-FASTING; NON-FAST MAGNESIUM 2.1 1.5-2.5 mg/dL CBC (INCLUDES DIFF/PLT) (639 9) Reviewed date:05/24/2024 11:17:02 AM Interpretation: Performing Lab:[facility] [id number] [employer], [facility] CenterAbleVT[address] Fredi Mendoza Notes/Report: NON-FASTING; NON-FASTING; NON-FASTING; NON-FASTING; NON-FAST WHITE BLOOD CELL COUNT 18.4 3.8-10.8 Thousand/ uL RED BLOOD CELL COUNT 4.75 4.20-5.80 Million/uL HEMOGLOBIN 15.3 13.2-17.1 g/dL HEMATOCRIT 45.5 38.5-50.0 % MCV 95.8 80.0-100.0 fL MCH 32.2 27.0-33.0 pg MCHC 33.6 32.0-36.0 g/dL For adults, a slight decrease in the calculated MCHC value (in the range of 30 to 32 g/dL) is most likely not clinically significant; however, it should be interpreted with caution in correlation with other red cell parameters and the patient's clinical condition. RDW 13.9 11.0-15.0 % PLATELET COUNT 399 140-400 Thousand/uL MPV 12.0 7.5-12.5 fL ABSOLUTE NEUTROPHILS [phone] cells/uL ABSOLUTE LYMPHOCYTES 7489 850-3900 cells/uL ABSOLUTE MONOCYTES 1858 200-950 cells/uL ABSOLUTE EOSINOPHILS 534 15-500 cells/uL ABSOLUTE BASOPHILS 129 0-200 cells/uL NEUTROPHILS 45.6 LYMPHOCYTES 40.7 MONOCYTES 10.1 EOSINOPHILS 2.9 BASOPHILS 0.7 PROTHROMBIN TIME-INR (8847) Reviewed date:05/24/2024 11:17:02 AM Interpretation: Performing Lab:[facility] [id number] [employer], [facility] [id number] Fredi Mendoza Notes/Report: NON-FASTING; NON-FASTING; NON-FASTING; NON-FASTING; NON-FAST INR 1.1 Reference Range 0.9-1.1 Moderate-intensity Warfarin Therapy 2.0-3.0 Higher-intensity Warfarin Therapy 3.0-4.0 PT 11.8 9.0-11.5 sec educational purposes only.) For additional information, please refer to http://education.[email or web address].zerobound/faq/[email or web address] (This link is being provided for informational/ Reason For Referral Reason Patient is having CT scan on Wednesday at [facility], see if they can do abdominal ultrasound on Wednesday morning Diagnosis 1 Right sided abdomina l pain (R10.9) Referral Organization [facility] Referring Provider First Name Maurilio Referring Provider Last Name Kolton Referring Provider Speciality Internal M edicine General Notes Jaime Powell 09/2024 10:11:51 AM > faxed to [facility] and they will add if they can Referral Priority Urgent Reason New PT - [facility]? See if they can pick him up Diagnosis 1 Age-related physical debility (R54) Referral Organization [facility] Referring Provider First Name Maurilio Referring Provider Last Name Kolton Referring Provider Speciality Internal edicine Referred Provider Specialty [facility] General Notes Iwona Flores 2024 04:15:51 PM >sent to [facility] Referral Priority Routine Reason Dr. Mendoza Currently being d/c from [facility] physical therapy but pain is still an 10/29. Please eval Diagnosis 1 Back pain (M54.9) Referral Organization [facility] Referring Provider First Name Maurilio Referring Provider Last Name Kolton Referring Provider Speciality Internal edicine Referred Organization [facility] Referred Address [address] [place] [address], [place], [place],[address], Referred Provider Specialty Pain Managem ent General Notes Iwona Flores 2024 12:48:34 PM >Sent to Dr. Mendoza Referral Priority Routine Medications Medication SIG (Take, Route, Frequency, Duration) Notes Start Date End Date Status Trelegy Ellipta 100 MCG-62.5 MCG-25 MCG/INH 1 [...] review and pick correct strength-formulati on from [employer] options. If intended option is not shown, discontinue and re-order from Quick Search* Active Senna 8.6 MG 1 tab(s) orally once a day (at bedtime) for 90 days Active Carvedilol 3.125 MG 1 tab(s) orally 2 times a day Active Apixaban 5 MG as directed orally 2 times a day Active Tylenol 325 MG 2 tab(s) orally every 6 hours Active metOLazone 5 MG 1 tab(s) orally once a day for 30 days 05/18/2024 Active Levocetirizine Dihydrochloride 5 MG 1 tab(s) orally once a day (in the evening) Active Citalopram Hydrobromide 20 MG 1 tab(s) orally once a day for 90 days Active Xhance 93 MCG/ACT 2 sprays (1 spray in each nostril) Nasally Twice a day Active Bumetanide 1 MG 2tabs orally in the morning for 30 days Active Eliquis 5 MG as directed Orally Active PROAIR HFA 90 MCG/INH INHALE 2 PUFFS BY MOUTH EVERY 4 HOURS NEEDED for 50 *Please review for potential replacement for e-prescription and drug interaction check* Active Vitamin B1 100 MG 1 tab(s) orally once a day for 7 day(s) Active OXYGEN CONSERVER DIRECTED DX: J44.9 DIRECTED 2L *Please review for potential replacement for e-prescription and drug interaction check* 08/09/2017 Active Clobetasol Propionate 0.05 % 1 vasyl applied topically 2 times a day for 14 days 05/22/2024 Active CPAP MACHINE WITH ADULT SETUP *Please review for potential replacement for e-prescription and drug interaction check* Active Vitamin D (Ergocalciferol) 1.25 MG (76050 UT) 1 cap(s) orally every 2 weeks Active Atorvastatin Calcium 80 MG 1 tab(s) orally once a day for 30 days Active Immunizations Vaccine Route Administration Date Status Comme nts Zostavax (Shingles) SC Subcutaneous 12/02/2016 Administere d SHINGRIX Unknown 03/18/2020 Administered SHINGRIX Unknown 05/17/2020 Administered Prevnar PCV-13 (Pneumococcal conjugate 13) IM Intramuscular 12/08/2017 Administered Pneumovax 23 IM Intramuscular 12/20/2018 Administered Pneumococcal Vaccine Unknown 12/04/2016 Administered Influenza-Fluzone 3+years (NON-MEDICARE) IM Intramuscular 12/02/2016 Administered Influenza-Fluzone 3+years (NON-MEDICARE) IM Intramuscular 12/08/2017 Administered Fluzone High Dose IM Intramuscular 12/20/2018 Administered Fluzone High Dose IM Intramuscular 01/05/2020 Administered Fluzone High Dose IM Intramuscular 12/26/2020 Administered Covid Moderna Unknown 06/05/2020 Administered Covid Moderna Unknown 07/03/2020 Administered Boostrix Unknown 03/18/2020 Administered Social History Tobacco Use: Social History Observation Description Date Details (start date - stop date) Former Smoker NA - NA Smoking: Question Answer Notes Are you a: former smoker How long has it been since you last smoked? > 10 years Problems Problem Type SNOMED Code ICD Code Onset Dates Problem Status W/U Status Risk Notes Problem [id number] Vascular demen tia 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) Active confirmed Problem 47582124 Other chronic pain (G89.29) Active confirmed Problem Chronic kidney disease due to hypertension (308963709927123) Hypertensive chronic kidney disease with stage 1 through stage 4 chronic kidney disease, or unspecified chronic kidney disease (I12.9) Active confirmed Problem 085048788 Other seasonal allergic rhinitis (J30.2) Active confirmed Problem 435090242 Other allergic rhinitis (J30.89) Active confirmed Problem 381641815 Lumbago with sciatica, unspecified side (M54.40) Active confirmed Problem 822752020 Lumbago with sciatica, left side (M54.42) Active confirmed Problem 16037335 Age-related physical debility (R54) Active confirmed Problem 507557813 Depression with anxiety (F41.8) Active confirmed Problem Hyperlipidemia (97490853) Hyperlipidemia (E78.5) Active confirmed Problem 88054408 Essential hypertension (I10) Active confirmed Problem 064946150 Erectile dysfunction, unspecified erectile dysfunction type (N52.9) Active confirmed Problem 05352102 Chronic obstructive pulmonary disease, unspecified COPD type (J44.9) Active confirmed Problem 958493001 Acquired hypothyroidism (E03.9) Active confirmed Problem 100090631 Non-rheumatic mitral regurgitation (I34.0) Active confirmed Problem 482862594910599 Other chronic pulmonary embolism (I27.82) Active confirmed Problem 31148913 Dysthymia (F34.1) Active confirmed Problem 530107534 Non-rheumatic tricuspid valve insufficiency (I36.1) Active confirmed Problem 49348839 ISAAC (obstructive sleep apnea) (G47.33) Active confirmed Problem Atherosclerotic heart disease of ambler coronary artery without angina pectoris (935601383196375) Atherosclerotic heart disease (I25.10) Active confirmed Problem 898204491 Dry eyes (H04.123) Active confirmed Problem 24558318 Multi-infarct dementia, 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) Active confirmed Problem 548245571 Diastolic CHF with preserved left ventricular function, NYHA class 2 (I50.30) Active confirmed Problem 036546314 Nonrheumatic aortic valve stenosis (I35.0) Active confirmed Problem 849721101 History of CVA (cerebrovascular accident) (Z86.73) Active confirmed Problem Chronic diastolic heart failure (372020996) CHF NYHA class II, chronic, diastolic (I50.32) Active confirmed Problem 653480750 Mild cognitive impairment with memory loss (G31.84) Active confirmed Problem 11184246 Mild single current episode of major depressive disorder (F32.0) Active confirmed Problem 924732014 Leukocytosis, unspecified type (D72.829) Active confirmed Problem Acute exacerbation of chronic obstructive airways disease (901494570) Acute exacerbation of chronic obstructive pulmonary disease (COPD) (J44.1) Active confirmed Problem 321154952 Other acute pulmonary embolism with acute cor pulmonale (I26.09) Active confirmed Problem Chronic renal failure syndrome (53256312) Chronic kidney disease, unspecified CKD stage (N18.9) Active confirmed Problem Myocardial infarction due to demand ischemia (disorder) (59369500890408290) Myocardial infarction type 2 (I21.A1) Active confirmed Problem 3467577 Thyroid enlargement (E04.9) Active confirmed Problem 717478092 Abnormal laboratory test result (R89.9) Active confirmed Problem Hypertensive heart failure (14760564) Hypertensive heart disease with congestive heart failure, unspecified heart failure type (I11.0) Active confirmed Vital Signs Heart Rate 80 /min 08/28/2024 Temperature 97.7 degrees Fahrenheit 08/28/2024 Oximetry 93 05/22/2024 93% RA Blood pressure diastolic 50 mm Hg 08/28/2024 Height 66.5 in 08/28/2024 Blood pressure systolic 100 mm Hg 08/28/2024 Weight 258 lbs 08/28/2024 BMI 41.01 kg/m2 08/28/2024 Encounters Encounter Location Date Provider Diagnosis [facility] [address] [place] [address] 06/24/2024 Provider Migration [facility] [address] [place] [address] 04/17/2024 Maurilio Hi Encounter for examination following treatment at hospital Z09 ; Nontraumatic compartment syndrome of left lower extremity M79.A22 ; Essential hypertension I10 ; Chronic kidney disease, unspecified CKD stage N18.9 and Hyperlipidemia E78.5 [facility] [address] [place], [place] [address] 05/22/2024 Maurilio Hi Acquired aplastic anemia D61.89 ; History of CVA (cerebrovascular accident) Z86.73 ; Diastolic CHF with preserved left ventricular function, NYHA class 2 I50.30 ; Acquired hypothyroidism E03.9 ; Compartment syndrome of left lower extremity, sequela T79.A22S ; Facial rash R21 and Routine medical exam Z00.00 [facility] [address] [place] [address] 05/26/2024 Maurilio Hi Right sided abdomina l pain R10.9 [facility] [address] [place], [place] [address] 07/26/2024 Maurilio Hi Other chronic pulmonary embolism I27.82 ; Chronic kidney disease, unspecified CKD stage N18.9 ; CHF NYHA class II, chronic, diastolic I50.32 ; History of CVA (cerebrovascular accident) Z86.73 ; Essential hypertension I10 ; Chronic obstructive pulmonary disease, unspecified COPD type J44.9 ; Mild cognitive impairment with memory loss G31.84 ; Hyperlipidemia E78.5 and Age-related physical debility R54 [facility] [address] [place] [address] 08/09/2024 Maurilio Hi Diastolic CHF with preserved left ventricular function, NYHA class 2 I50.30 ; Seborrheic dermatitis L21.9 and Other seasonal allergic rhinitis J30.2 [facility] [address] [place] [address] 08/28/2024 Maurilio Besson Wound of left lower extremity, sequela S81.802S [facility] [address] [place] [address] 03/29/2024 Maurilio Besson [facility] [address] [place] [address] 04/01/2024 Maurilio Besson [facility] [address] [place] [address] 04/13/2024 Maurilio Besson [facility] [address] [facility] [address] [place] [address] 04/14/2024 Maurilio Besson [facility] [address] [place] [address] 04/18/2024 Maurilio Besson [facility] [address] [place] [address] 04/24/2024 Maurilio Besson [facility] [address] [facility] [address] [place] [address] 04/25/2024 Maurilio Besson [facility] [address] [facility] [address] [place] [address] 05/01/2024 Maurilio Besson [facility] [address] [facility] [address] [place] [address] 05/15/2024 Maurilio Besson [facility] [address] [place] [address] 05/18/2024 Maurilio Besson [facility] [address] [facility] [address] [place] [address] 05/26/2024 Maurilio Besson [facility] [address] [place] [address] 06/12/2024 Maurilio Besson [facility] [address] [place] [address] 06/16/2024 Amurilio Besson [facility] [address] [facility] [address] [place] [address] 08/17/2024 Maurilio Besson [facility] [address] [place] [address] 08/17/2024 Maurilio Besson [facility] [address] [place] [address] 08/21/2024 Maurilio Besson [facility] [address] [place] [address] 08/23/2024 Maurilio Besson [facility] [address] [place] [address] 08/31/2024 Maurilio Besson [facility] [address] [place] [address] 09/04/2024 Maurilio Besson [facility] [address] [place] [address] 09/06/2024 Maurilio Besson [facility] [address] [place] [address] 05/18/2024 Maurilio Besson Assessments Encounter Date Diagnosis (ICD Code) Assessment Notes Treatment Notes Treatment Clinical Notes Section Notes 04/17/2024 Nontraumatic compartment syndrome of left lower extremity (ICD-10 - M79.A22) See notes below, wound seems to be progressing well. Patient's brings up other not he needs an extended care bed. She does not know that she is able to take care of at home. She specifically request the [facility] number and I gave this to her. She will investigate whether or not this is an option. Otherwise continue home health. Reviewed as noted 04/17/2024 Encounter for examination following treatment at hospital (ICD-10 - Z09) Patient developed RSV pneumonia and was transferred from [facility] to for higher acuity care. During his stay, he developed compartment syndrome and underwent fasciotomy. He was sent to [facility] for rehab. Since returning home, he is being seen by home health for wound care and dressing changes. His is interested in group home facility due to her struggling to take care of him. I gave them information for [facility]. 05/22/2024 History of CVA (cerebrovascular accident) (ICD-10 - Z86.73) Improving, continue PT/OT. Significant functional deficits but reducing his weight and swelling have helped drastically. 05/22/2024 Acquired aplastic anemia (ICD-10 - D61.89) History of severe aplastic anemia while in rehab after stroke. Will check blood counts today and clotting factors 05/26/2024 Right sided abdominal pain (ICD-10 - R10.9) Plan to get abdominal ultrasound. We hopefully can get this done when he is here for his lung scan. I will review these results personally. 07/26/2024 Other chronic pulmonary embolism (ICD-10 - I27.82) -Stable on eliquis BID 07/26/2024 Chronic kidney disease, unspecified CKD stage (ICD-10 - N18.9) -Latest Cr stable, will trend w/change in bumex dosing as below 08/09/2024 Seborrheic dermatitis (ICD-10 - L21.9) -cont clobetasol solution, reccs to use selenium sulfide shampoo as a facial wash + scalp wash considering dandruff improvement w/scalp use. 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 Stop metolazone, check labs and will reevaluate in a couple months 04/17/2024 Essential hypertension (ICD-10 - I10) Chronic. On carvedilol and well-controlled. Continue current regimen. 04/17/2024 Chronic kidney disease, unspecified CKD stage (ICD-10 - N18.9) Chronic. On bumetanide. Has lower extremity edema. Continue current regimen. 05/22/2024 Acquired hypothyroidism (ICD-10 - E03.9) 07/26/2024 History of CVA (cerebrovascular accident) (ICD-10 - Z86.73) -CVA, recent compartment syndrome, and multiple chronic med comorbids playing into Pt debility as below -Cont Lipitor/Eliquis, not currently on ASA 81 07/26/2024 Essential hypertension (ICD-10 - I10) -BP stabilized off of Coreg, no longer hypotensive -Cont current regimen 05/22/2024 Compartment syndrome of left lower extremity, sequela (ICD-10 - T79.A22S) Continues to have wound care at home. No change in plan 04/17/2024 Hyperlipidemia (ICD-10 - E78.5) Chronic. On atorvastatin. Continue current regimen 07/26/2024 Chronic obstructive pulmonary disease, unspecified COPD type (ICD-10 - J44.9) -Cont trelegy -Increased WOB at baseline, not requiring home O2 -Habitus c/f Pickwickian pathophysiology as well -Cont to follow w/ENT for sinusitis component, on Xhance now and pending improvement 05/22/2024 Facial rash (ICD-10 - R21) Patient dry shaved with a razor. Trial of clobetasol to help with irritation. Watched signs/symptoms of infection 05/22/2024 Routine medical exam (ICD-10 - Z00.00) Patient not a candidate for colonoscopy or other cancer screening at this point given his significant frailty and his dementia. Up-to-date with vaccines. Will give new Prevnar 21 type vaccine at next visit. Fall risk high, prevention plan in place. Functional care plan in place. is healthcare surrogate. 07/26/2024 Mild cognitive impairment with memory loss (ICD-10 - G31.84) 07/26/2024 Hyperlipidemia (ICD-10 - E78.5) 07/26/2024 Age-related physical debility (ICD-10 - R54) -Post hospitalization debility was improving w/HH and PTOT in home, Pt and caregiver noting that functional status/ADLs seem to be declining after PT was discontinued -Pt reporting that, secondary to his significant ambulatory difficulties, debility, exertional SOA, and frequency of urination on Bumex, reporting to PT outpatient daily would be a significant hardship -Will re-refer to in home PTOT I performed a [id number] evaluation on this patient today, and determined that this patient cannot leave home without significant difficulty based on pain, immobility and ataxia issues. They qualify for home health evaluation for PT/OT evaluation as well as nursing care, home safety and follow-up medical care. 04/17/2024 Other Follow up in 3 weeks. 07/26/2024 Other Please note I spent over 30minutes in [facility] patient care Plan Of Treatment Pending Test Test Name Order Date X ray : Chest 07/10/2019 X ray : Knee, Left 09/13/2018 X ray : Knee, Right 09/13/2018 Physical Therapy 06/09/2017 Occupational Therapy : Eval & Treatment 06/09/2017 H-CBC with AUTO DIFF 07/09/2017 H-CMP 07/09/2017 H-LIPID PANEL 07/09/2017 H-THYROID PANEL 2- (T3 Uptake, T4, Free Thyroxine Index, TSH) 07/09/2017 C-THYROID PROFILE 12/16/2016 C-BNP 07/04/2019 Next Appt Details Provider Name:Maurilio Hi, 10/30/2024 12:00:00 PM, [address] [facility] [address] [facility], [address], [place], [address], Insurance Providers Payer Name Payer Address Payer Phone Subscriber Number Group Number Insured Name Patient Relationship to Insured Coverage Start Date Coverage End Date [place] [address] [place] [place] [address] [phone] [id number] Reji Carrillo Self - patient is the insured [employer] [address] [address] [place] [address] [id number] Reji Carrillo Self - patient is the insured Medications Administered Medication Instructions Date of Administration Dosage Notes Dexamethasone 4mg Injection 02/11/2021 4 mg Dexamethasone 4mg Injection 03/03/2022 4 mg Triamcinolone Acetonide 40mg Injection 05/06/2018 1 mL Medical (General) History Medical History History ICD Code Pulmonary Embolism, blood clot LLE HTN Old cerebellar infarct seen on CT Memory loss since PE Chronic back and knee pain o n Percocet, MSO4 and gabapentin per Dr Jhonathan Howard Sleep apnea on CPAP - equipment through [facility] left heart catheter 2017 with 20-30% blockages. Medical therapy recommended Wound on Left Hip Surgical History Surgery Date(Month/Year) removal of spleen 1953 Appendectomy 1962 T & A 1953 back surgeries - back related injuries 1 987/1987 lt rotator cuff surgery 1994 rt hit replacement 12/2014 rt knee replacement 12/2015 lt knee replacement 02/19/2016 tooth-extractions 1998 bilateral eye-surgery 2009 colonoscopy with isolated hyperplastic p olyp 08/2014 Heart Cath 2018 Ear tube- left ear 06/09/2018 Compartment Syndrome- Dr. Joshi 02/2024 Lt leg surgery- 02/2024 Hospitalization History Reason Date(Month/Year) [facility] 03/2024 Lt leg surgery- 02/2024 blood clot-lt leg and lung, kidney failu re, lack of oxygen 02/2016 all above surgeries
--- OUTSIDE RECORDS SUMMARY | 2024-09-11 09:45 | XMS_ITS | Clinical Summary ---
Author Organization Healthcare Address [address] [place] [address] Care Team Providers Care Cvicu Nurse Name Role Phone Naresh Moura MD Primary Care Provider [phone] Allergies No known active allergies Medications albuterol 108 (90 Base) MCG/ACT inhaler Inhale 2 puffs 4 (four) times a day. Active atorvastatin (Lipitor) 80 MG tablet Take 1 tablet (80 mg) by mouth 1 (one) time each day. Active azelastine (Astelin) 0.1 % nasal spray Administer 1 spray into each nostril 2 (two) times a day. Use in each nostril as directed Active bumetanide (Bumex) 1 MG tablet Take 2 tablets (2 mg) by mouth 1 (one) time each day. Active carvedilol (Coreg) 3.125 MG tablet Take 1 tablet (3.125 mg) by mouth 2 (two) times a day with meals. Active citalopram (CeleXA) 20 MG tablet Take 1 tablet (20 mg) by mouth 1 (one) time each day. Active empagliflozin (Jardiance) 10 MG Take 1 tablet (10 mg) by mouth 1 (one) time each day. Active ergocalciferol (Vitamin D-2) 1.25 MG (60262 UT) capsule Take 1 capsule (50,000 Units) by mouth 1 (one) time per week. Tuesdays Active Fluticasone-Ume clidin-Vilant (Trelegy Ellipta) 100-62.5-25 MCG/ACT aerosol powder Inhale 1 puff 1 (one) time each day. Active levocetirizine (Xyzal) 5 MG tablet Take 1 tablet (5 mg) by mouth 1 (one) time each day in the evening. Active levothyroxine (Synthroid, Levoxyl) 50 MCG tablet Take 1 tablet (50 mcg) by mouth 1 (one) time each day before breakfast. Active memantine (Namenda) 10 MG tablet Take 1 tablet (10 mg) by mouth 2 (two) times a day. Active thiamine 100 MG tablet Take 1 tablet (100 mg) by mouth 1 (one) time each day. Active benzonatate (Tessalon) 100 MG capsule Take 1 capsule (100 mg) by mouth 3 (three) times a day if needed for cough. Do not crush or chew. 20 capsule 5 Active methocarbamol (Robaxin) 500 MG tablet Take 1 tablet (500 mg) by mouth 4 (four) times a day if needed for muscle spasms. 24 tablet 5 Active naloxone (Narcan) 4 mg/0.1 mL nasal spray 1. Give 1 spray in nostril for no/slow breathing or cannot wake after opioid use 2. Call 911 3. Repeat in other nostril if symptoms continue 1 each Active Additional Information Patient not taking.Reported on 04/11/2024 apixaban (Eliquis) 5 MG tablet Take 1 tablet (5 mg) by mouth 2 (two) times a day. First dose to be given 1/7 AM after lovenox is stopped. 5 Active oxyCODONE (Roxicodone) 10 MG immediate release tablet Take 1 tablet (10 mg) by mouth every 4 (four) hours if needed for moderate pain. 5 Active Active Problems Problem Noted Date Diagnosed Date Severe obesity (BMI 35.0-39.9) with comorbidity 04/11/2024 Traumatic hematoma 04/11/2024 Overview (04/11/2024): 03/15 anterior/posterior LLE fasciotomy Will plan for skin grafting with Dr. Thompson Class III obesity with body mass index (BMI) of 40.0 or higher 03/18/2024 Resolved Problems Problem Noted Date Diagnosed Date Resolved Date Thigh hematoma, left, initial encounter 03/14/2024 03/25/2024 Compartment syndrome of thigh 03/13/2024 03/25/2024 Immunizations Immunization Administration Dates Next Due Influenza, Unspecified 12/22/2016,12/04/2016 Pneumococcal, Unspecified 12/04/2016 Family History Medical History Relation Name Comments Diabetes Other 1 Hypertension Other 2 Relation Name Status Comments Other 1 Other 2 Social History Tobacco Use Types Packs/Day Years Used Date Smoking Tobacco: Former Smokeless Tobacco: Never Tobacco Cessation:Counseling Given: Not Answered Alcohol Use Standard Drinks/Week Comments Yes 0 (1 standard drink = 0.6 oz pur e alcohol) Humiliation, Afraid, Rape, a nd Kick questionnaire Answer Date Recorded Within the last year, have y ou been afraid of your partner or ex-partner? Patient unable to answer 03/16/2024 Within the last year, have y ou been humiliated or emotionally abused in other ways by your partner or ex-partner? Patient unable to answer 03/16/2024 Within the last year, have y ou been kicked, hit, slapped, or otherwise physically hurt by your partner or ex-partner? Patient unable to answer 03/16/2024 Within the last year, have y ou been raped or forced to have any kind of sexual activity by your partner or ex-partner? Patient unable to answer 03/16/2024 Hunger Vital Sign Answer Date Recorded Within the past 12 months, y ou worried that your food would run out before you got the money to buy more. Never true 03/16/20 24 Within the past 12 months, t he food you bought just didn't last and you didn't have money to get more. Never true 03/16/2024 PRAPARE - Transportation Answer Date Re corded In the past 12 months, has l ack of transportation kept you from medical appointments or from getting medications? No 02/20 In the past 12 months, has l ack of transportation kept you from meetings, work, or from getting things needed for daily living? No 03/16/2024 Housing Stability Vital Sign Answer Celso e Recorded In the last 12 months, was t here a time when you were not able to pay the mortgage or rent on time? No 03/16/2024 Number of Times Moved in the Last Year Not on fi le 03/16/2024 At any time in the past 12 m [facility], were you homeless or living in a correction (including now)? No 03/16/2024 Utilities Answer Date Recorded In the past 12 months has th e electric, gas, oil, or water company threatened to shut off services in your home? No 03/16/2024 Sex and Gender Information Value Date Recorded Sex Assigned at Not on file Legal Sex Male 8:32 PM EDT Gender Identity Not on file Sexual Orientation Straight 03/15/2024 1: 41 AM EST Last Filed Vital Signs Vital Sign Reading Time Taken Comments Blood Pressure 115/71 04/11/2024 8:10 AM EST Pulse 96 04/11/2024 8:10 AM EST Temperature 36.4 C (97.5 F) 04/11/2024 8:10 AM EST Respiratory Rate 20 03/25/2024 11:36 AM EST Oxygen Saturation 94% 03/25/2024 11:36 AM EST Inhaled Oxygen Concentration - - Weight 115 kg (253 lb) 04/11/2024 8:10 AM EST Height 172.7 cm (5' 7.99 ) 04/11/2024 8:10 AM ES T Body Mass Index 38.48 04/11/2024 8:10 AM EST Plan of Treatment Health Maintenance Due Date Last Done Comments [facility]-Depression Screening 1952 [facility]-Hepatitis C Screening 1952 [facility]-Medicare Annual Wellness (AWV) 1952 [facility]-/Child/Adol SDOH Screenings 1952 Diabetes: Dental Exam 1962 CT Colonography 1997 Colonoscopy 1997 FIT-DNA 1997 FIT 1997 FOBT 1997 Sigmoidoscopy 1997 [facility]-Colorectal Cancer Screening 1997 [facility]-RSV Vaccine: 60+ Years or (1 - Risk 60-74 years 1-dose series) 2012 [facility]-Abdominal Aortic Aneurysm (AAA) Screening 2017 [id number] Vaccine ( season) 2023 02/18/2021, 07/03/2020, 06/05/2020 [facility]-Diabetes: Hemoglobin A1C 08/21/2024 02/22/2024 [facility]- SDOH Screenings 09/14/2024 [facility]-Adult SDOH Screenings 09/14/2024 03/16/2024 [facility]-Influenza Vaccine (Season Ended) 2024 12/31/2022, 11/28/2021, 12/26/2020, Additional history exists [facility]-DTaP,Tdap,and Td Vaccines (2 - Td or Tdap) 03/18/2030 03/18/2020 [facility]-Pneumococcal Vaccine: 50+ Years Completed 12/20/2018, 12/08/2017, 12/04/2016 [facility]-Zoster Vaccines Completed 05/17/2020, 03/18/2020, 12/02/2016 [facility]-Obesity Intervention Completed 04/11/2024 HPV Vaccines Aged Out No longer eligi ble based on patient's age to complete this topic [facility]-HIB Vaccines Aged Out No longer e ligible based on patient's age to complete this topic [facility]-Hepatitis A Vaccines Aged Out No longer eligible based on patient's age to complete this topic [facility]-IPV Vaccines Aged Out No longer e ligible based on patient's age to complete this topic [facility]-Rotavirus Vaccines Aged Out No lo nger eligible based on patient's age to complete this topic Insurance MEDICARE COUNTS INCLUDE 234 BEDS AT [facility] [place] [id number] Advance Directives Documents on File Type Date Recorded Patient Director Broadcast Expl anation Advance Directives and Livin g Will 03/25/2024 10:29 AM * Full Code (Latest Code Status on File) Date Activated Date Inactivated Comments 03/25/2024 11:45 AM * Full Code Date Activated Date Inactivated Comments 03/14/2024 12:59 PM 03/25/2024 11:45 AM Question Answer Comments Patient has decision-making capacity? Yes Care Teams Cvicu Nurse Relationship Specialty Start Date End Date Naresh Moura MD [address] [place] [address] PCP - General 08/02/20
--- OUTSIDE RECORDS SUMMARY | 2024-09-11 09:45 | XMS_ITS | Clinical Summary ---
Author Organization [employer] Address [address] [place] [address] Care Team Providers Care House Carpenter Helper Name Role Phone Skyler Guerra MD Unavailable [phone] Randi Baumann MD Unavailable [phone] Humera Kelley Unavailable Provider, Not In System Unavailable Unavaila Niels Rivas MD Unavailable [phone] Giovanni Cerrato JEWELRY DESIGNER Unavailable [phone] Grady English MD Unavailable Lidya Douglas PA-C Primary Care Provider [phone] Hilda Jama JEWELRY DESIGNER Unavailable [phone] Allergies No known active allergies Medications albuterol HFA (VENTOLIN HFA) 90 mcg/actuation inhaler Inhale 1 puff by mouth via inhaler every 6 (six) hours as needed. Active azelastine (ASTELIN) 137 mcg (0.1 %) nasal spray 1 spray by Nasal route 2 (two) times daily Use in each nostril as directed. Active bumetanide (BUMEX) 1 MG tablet Take 2 tablets (2 mg total) by mouth daily. Active citalopram (CeleXA) 20 MG tablet Take 1 tablet (20 mg total) by mouth daily . Active fluticasone propionate (FLONASE) 50 mcg/actuation nasal spray 1 spray by Nasal route daily. Active ipratropium-alb uteroL (DUO-NEB) 0.5 mg-3 mg(2.5 mg base)/3 mL nebulizer solution Take 3 mLs by nebulization every 6 (six) hours as needed. Active levothyroxine (SYNTHROID, LEVOTHROID) 50 MCG tablet Take 1 tablet (50 mcg total) by mouth Every morning on an empty stomach. Active memantine (NAMENDA) 10 MG tablet Take 1 tablet (10 mg total) by mouth daily. Active warfarin (COUMADIN, JANTOVEN) 5 MG tablet Take 1 tablet (5 mg total) by mouth. Active warfarin (COUMADIN, JANTOVEN) 7.5 MG tablet Take 1 tablet (7.5 mg total) by mouth daily Take on Wed and Wednesday. Active Jardiance 10 mg tablet Take 1 tablet (10 mg total) by mouth daily. 4 Active Anoro Ellipta 62.5-25 mcg/actuation DsDv Take 1 puff by mouth daily. 4 Active atorvastatin (LIPITOR) 80 MG tablet Take 1 tablet (80 mg total) by mouth daily. 4 Active carvediloL (COREG) 3.125 MG tablet Take 1 tablet (3.125 mg total) by mouth 2 (two) times daily with breakfast and dinner. Active Active Problems Problem Noted Date Diagnosed Date Aortic valve stenosis 10/28/2022 CAD (coronary artery disease) 10/28/2022 CHF (congestive heart failure) 10/28/2022 COPD (chronic obstructive pulmonary disease) 11/2022 Family History Medical History Relation Name Comments Stroke Other Relation Name Status Comments Other Social History Tobacco Use Types Packs/Day Years Used Date Smoking Tobacco: Former Cigarettes Q uit: 1984 Passive Smoke Exposure: Never Smokeless Tobacco: Never Tobacco Cessation:Counseling Given: Not Answered Alcohol Use Standard Drinks/Week Comments Never 0 (1 standard drink = 0.6 oz pur e alcohol) Interpersonal Safety Answer Date Record ed Family or friends hurt you Not on file 04/03 Family or friends insult you Not on file Family or friends threaten you Not on file 0 04/03/2023 Family or friends scream or curse at you Not on file 04/03/2023 Housing Stability Answer Date Recorded Living situation today Not on file Living situation problems Not on file 2023 Food Insecurity Answer Date Recorded Food run out past 12 months Not on file 03/22 Food did not last past 12 months Not on file 04/03/2023 Employment Answer Date Recorded Help finding and keeping a job Not on file 0 04/03/2023 Family and Community Support Answer Celso e Recorded Help with Day to Day Activities Not on file 04/03/2023 Feeling Lonely or Isolated Not on file 04/03 Educational Attainment Answer Date Vahid rded Speak language other than Malay at home Not on file 04/03/2023 Want help with school or training Not on file 04/03/2023 Depression Answer Date Recorded PHQ-2 Risk Not on file 04/03/2023 Disabilities Answer Date Recorded Difficulty concentrating Not on file 024 Difficulty doing errands alone Not on file 0 04/03/2023 Substance Use Answer Date Recorded Used prescription meds for non-medical reasons N ot on file 04/03/2023 Used illegal drugs past 12 months Not on file 04/03/2023 Sex and Gender Information Value Date Recorded Sex Assigned at Male 09/16/2021 5:11 PM CDT Legal Sex Male 5:11 PM CDT Gender Identity Male 09/16/2021 5:11 PM CDT Sexual Orientation Not on file Last Filed Vital Signs Vital Sign Reading Time Taken Comments Blood Pressure 130/78 08/17/2023 1:20 PM EDT Pulse 66 08/17/2023 1:20 PM EDT Temperature 36.6 C (97.9 F) 06/14/2023 3:52 PM EDT Respiratory Rate 22 06/14/2023 8:23 PM EDT Oxygen Saturation 90% 06/14/2023 8:23 PM EDT Inhaled Oxygen Concentration - - Weight 112.5 kg (248 lb) 08/17/2023 1:20 PM EDT Height 172.7 cm (5' 8 ) 08/17/2023 1:20 PM EDT Body Mass Index 37.71 08/17/2023 1:20 PM EDT Plan of Treatment Health Maintenance Due Date Last Done Comments CT Colonography 1952 Colonoscopy 1952 Colorectal Cancer Screening 1952 FOBT/FIT 1952 Fit-DNA (Cologuard) 1952 Sigmoidoscopy 1952 Depression Screening (12+) 1964 Hepatitis C Screening 1970 Respiratory Syncytial Virus (RSV) Adult or (1 - Risk 60-74 years 1-dose series) 2012 Medicare Initial AWV [id number] 09/20/2018 COVID-19 VACCINE (4 - 2023-2 5 season) 2023 02/18/2021, 07/03/2020, 06/05/2020 Falls Risk Screening 03/22/2024 Tobacco Cessation Counseling and Screening (12+) 08/16/2024 08/17/2023 Influenza Vaccine (Season Ended) 2024 12/31/2022, 11/28/2021, 12/26/2020, Additional history exists DTAP/TDAP/TD VACCINES (2 - T d or Tdap) 03/18/2030 03/18/2020 Pneumococcal 50+ years Completed 12/20/2018, 2017 Shingles Vaccine (Zoster) Completed 2020, 03/18/2020, 12/02/2016 Insurance 2023 [facility] [place] [id number] MEDICARE PART A B Care Teams House Carpenter Helper Relationship Specialty Start Date End Date Lidya Douglas PA-C [address] [place] [address] PCP - General 08/12/23 Skyler Guerra MD [address] [place] [address] Retail Loss Prevention Investigator Pulmonary Disease 10/28/22 Randi Baumann MD [address] [place] [address] Consulting Physician General Internal Medicine 10/28/22 Humera Kelley [address] [place] [address] Neurologist Neurology 10/28/22 Provider, Not In System [place] Referring Physician Cardiology 10/28/22 Niels Dawn MD [address] [facility] [address] [place] [address] Surgeon Cardiothoracic Surgery 11/03/22 Giovanni Cerrato, JEWELRY DESIGNER [address] [facility] [address] [place] [address] Nurse Practitioner Cardiology 06/10/23 Grady English MD [address] [facility] [address] [place] [id number] Interventional Cardiology 06/15/23 Hilda Jama, JEWELRY DESIGNER [address] [facility] [address] [place] [address] Cardiology 08/17/23
--- OUTSIDE RECORDS SUMMARY | 2024-09-11 09:45 | XMS_ITS | Referral Summary ---
Author Organization [employer] Address [address] [place] [address] Care Team Providers Care Accounts Payable Specialist Name Role Phone Skyler Guerra MD Unavailable [phone] Randi Baumann MD Unavailable [phone] Humera Kelley Unavailable Provider, Not In System Unavailable Unavaila Niels Rivas MD Unavailable [phone] Giovanni Cerrato CANDY MIXER Unavailable [phone] Grady English MD Unavailable Lidya Douglas PA-C Primary Care Provider [phone] Hilda Jama CANDY MIXER Unavailable Allergies No known active allergies Medications albuterol [...] 10/28/2022 COPD (chronic obstructive pulmonary disease) 11/2022 Social History Tobacco Use Types Packs/Day Years [...] Date Vahid rded Speak language other than Danish at home Not on file 04/03/2023 Want [...] 08/17/2023 1:20 PM EDT Plan of Treatment Not on file Insurance 2023 [place] [id number] [address] [place] [address] Care Teams Accounts Payable Specialist Relationship Specialty Start Date End Date Lidya Douglas PA-C [address] [facility] [address] [place] [address] PCP - General 08/12/23 Skyler Guerra MD [address] [place] [address] Publications Sales Representative Pulmonary Disease 10/28/22 Randi Baumann MD [address] [place] [address] Consulting Physician General Internal Medicine 10/28/22 Humera Kelley [address] [place], [place] [id number] Neurologist Neurology 10/28/22 Provider, Not In System [place] Referring Physician Cardiology 10/28/22 Niels Dawn MD [address] [facility] [address] [place], [place] [id number] Surgeon Cardiothoracic Surgery 11/03/22 Giovanni Cerrato APRN [address] [facility] [address] [place] [address] Nurse Practitioner Cardiology 06/10/23 Grady English MD [address] [facility] [address] [place] [address] Interventional Cardiology 06/15/23 Hilda Jama, CANDY MIXER [address] [facility] [address] [place] [address] Cardiology 08/17/23
[2024-09-11 09:58] VITALS: BP 107/56; PULSE 88; RESP 18; O2SAT 93; BMI 39.0
--- NOTE | 2024-09-11 10:16 | A.OFFVIS_ITS ---
HPI Data of Consult Patient: new to practice Consult date: 09/11/24 Requesting Physician: Alix Bridges APRN Primary Care Provider: Maurilio Hi MD Reason for consult: Neck pain, shoulder pain, low back pain History of present illness: Mr. Carrillo is a 73 year old male who presents today as a new patient. He is a referral from Dr. Hi's office. Today he rates his pain as 8 out of 10. Patient states that he has had chronic pain in multiple areas including his low back that is gone on for years and did end up even having to back surgeries including a fusion in the 80s. Patient does also have bilateral shoulder pain with numbness that radiates down the entire left arm into his thumb and index fingers. 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 Patient states that he did see Dr. Jeremy Bridges here in [place] for the shoulder pain and was going to be scheduled for injections as well as left shoulder surgery however he ended up getting really sick and hospitalized. He states several things went on including getting compartment syndrome and he never got in for these procedures. Patient is on blood thinners and states he does believe that Dr. Hi writes these. Patient is interested in any help we may be able to provide. He states that she has constant and interferes with his activities of daily living such as cooking and cleaning. Patient does state that overall the neck, shoulders and numbness and tingling down into his entire left arm and hand is worse than the low back. Patient has tried and failed conservative measures including oral medication, heat and ice, topicals, previous physical therapy however he states he thinks it has been sometime ago. Patient denies any neck surgery. His Win has been reviewed and is appropriate. Pain at rest (0-10 scale): 8 Has patient had previous pain injection?: No Conservative treatment options previously tried: Home exercise plan (Longer than 12 weeks) cc:: CC: Alix Bridges APRN [facility] Disclaimer: The information contained in this section may have been updated after the patient was seen, as this information can be updated by other users. Medical History Compartment syndrome Non-functioning tympanostomy tube Debris in left ear canal Chronic sinusitis Acute and chronic respiratory failure with hypoxia SNHL (sensorineural hearing loss) ILD (interstitial lung disease) Sleep apnea Gall stone History of sleep apnea COPD exacerbation Allergic rhinitis Restrictive lung disease Allergic rhinitis History of smoking 30 or more pack years Dyspnea on exertion COPD (chronic obstructive pulmonary disease) Dyspnea on exertion Moderate aortic stenosis Active follow-up with cardiology at [facility] Mild aortic stenosis Pre-op evaluation HLD (hyperlipidemia) Pulmonary embolism CHF (congestive heart failure) Pulmonary hypertension HHD (hypertensive heart disease) CAD (coronary artery disease) DVT (deep venous thrombosis) Fatigue HTN (hypertension) Aortic valve stenosis Surgical History Status post arthroscopy of hip History of arthroscopic knee surgery Family History Other Stroke Social History (Updated 09/11/24 @ 09:59 by Ирина Chairez RN) Smoking Status: Former smoker tobacco type: cigarettes second hand exposure: No alcohol intake: never substance use type: denies use current occupational status: retired Travel in the last 8 weeks?: None household members: significant other housing: house current occupational exposures/hazards: No caffeine: Yes Review of Systems Review of Systems Review of systems:: pertinent systems reviewed and negative unless documented below Review of systems (narrative): Review of Systems: General: No recent weight changes, no fever, no sleep disturbances Respiratory: No cough, no shortness of air, no recurring pulmonary infections Cardiovascular/peripheral vascular: No chest pain, no palpitations, no edema, no shortness of breath Gastrointestinal: No new onset incontinence, normal bowel movements reported Genitourinary: No new onset incontinence Musculoskeletal: Neck pain, bilateral shoulder pain, left arm numbness tingling, low back pain Psychiatric: [Normal mood/affect] Neurological: [Denies weakness in extremities], [denies balance issues] Meds Home Medications and Allergies Home Medications ?Medication ?Instructions ?Recorded ?Confirmed ?Type citalopram 20 mg tablet 20 mg PO DAILY dementia 30 d ays 12/22/22 09/11/24 Rx #90 tabs levocetirizine 5 mg tablet 5 mg PO DAILY 10/11/2308/21 History azelastine 137 mcg (0.1 %) nasal 1 spray intranasal BI D 90 days #90 12/01/23 09/11/24 Rx spray mL fluticasone propionate 50 2 spray intranasal DAILY 90 days 12/01/23 09/11/24 Rx mcg/actuation nasal #16 grams spray,suspension (Flonase Allergy Relief) ergocalciferol (vitamin D2) 1,250 1,250 mcg PO Q2W 09/11/24 History mcg (50,000 unit) capsule levothyroxine 50 mcg tablet 50 mcg PO DAILY 03/08/24 0 09/11/24 History acetaminophen 325 mg tablet 650 mg (2 x 325 mg) PO Q6H P PRN 03/13/24 09/11/24 Rx fever or pain #0 tabs bumetanide 1 mg tablet 2 mg (2 x 1 mg) PO DAILY #18 0 tabs 03/30/24 09/11/24 Rx cholecalciferol (vitamin D3) 1,250 1,250 mcg PO .every two weeks #7 04/17/24 09/11/24 Rx mcg (50,000 unit) capsule caps collagenase clostridium histo. 250 250 unit topical DIRECTED Skin 04/17/24 09/11/24 History unit/gram topical ointment (Santyl) Condition ketoconazole 2 % topical cream 1 applic topical DIR ECTED Skin 04/17/24 09/11/24 History Condition polyethylene glycol 3350 17 17 g PO DAILY 04/17/24 History gram/dose oral powder (Miralax) sennosides 8.6 mg-docusate sodium 1 tab-cap PO HS 03/2309/11/24 History 50 mg tablet (Senna with Docusate Sodium) atorvastatin 80 mg tablet 80 mg PO DAILY #90 tabs 05/2009/11/24 Rx albuterol sulfate 90 mcg/actuation 1 inh inhalation QI D PRN shortness 06/08/24 09/11/24 Rx aerosol inhaler of breath or wheezing 90 day s #8.5 grams apixaban 5 mg tablet (Eliquis) 5 mg PO BID #180 tabs 0 06/19/24 09/11/24 Rx thiamine HCl (vitamin B1) 100 mg See Rx Instructions . Route 06/20/24 09/11/24 Rx tablet .COMPLEX #30 tabs methylprednisolone 4 mg tablets in See Rx Instructions PO PER PKG DIR 06/26/24 09/11/24 Rx a dose pack (Medrol ([place])) #21 tabs ciprofloxacin 0.3 %-dexamethasone 4 drp otic (ear) BID 06/28/24 09/11/24 History 0.1 % ear drops,suspension memantine 10 mg tablet See Rx Instructions .Route 0 07/24/24 09/11/24 Rx .COMPLEX #60 tabs fluticasone fur. 100 mcg-umeclid 1 inh inhalation JOSEFINA Y 90 days #90 08/24/24 09/11/24 Rx 62.5 mcg-vilant 25 mcg ea inhalat.powder (Trelegy Ellipta) New Prescriptions to Start Prescriptions: Allergies Allergy/AdvReac Type Severity Reaction Status Date / Time No Known Allergies Allergy Verified 07/13/24 13:19 Objective Vital signs: Pulse Resp BP Pulse Ox O2 Del Method 88 18 107/56 L 93 L Room Air 09/11/24 09:58 09/11/24 09:58 09/11/24 09:58 09/11/24 09:58 09/11/24 09:58 Narrative: Physical Exam: General: Alert and oriented x3, no acute distress, pleasant and cooperative Lungs: Respirations even and unlabored, symmetrical chest expansion Eyes: PERRL Musculoskeletal: Flexion and extension of cervical [spine] somewhat guarded secondary to pain, [antalgic gait noted] positive Spurling's test Neurological: Speech clear, no gross sensory deficit Additional findings Additional findings: FINDINGS: Bones/joints: There is ossification of the nuchal ligament. The cervical spine shows relatively preserved alignment of the vertebral bodies with no evidence of acute fractures or dislocations. However, age-related degenerative changes are observed, including mild disc space narrowing and osteophyte formation at multiple levels. These findings are consistent with age related degenerative disease. Lungs: Lung apices are normal. Vasculature: There are atherosclerotic calcifications of the carotid bulbs bilaterally. Soft tissues: See Bones/joints finding. IMPRESSION: Multilevel degenerative change without acute injury identified. Assessment and Plan *Assessment and plan (1) Degenerative disc disease, cervical: Status: Acute Category: Medical Code(s): M50.30 - Other cervical disc degeneration, unspecified cervical region (2) Cervical radiculopathy: Status: Acute Category: Medical Code(s): M54.12 - Radiculopathy, cervical region Plan Patient is experiencing worsening pain in their neck with radiating tingling and burning sensations into their left upper extremity. Patient did have limited range of motion of her cervical spine with a positive Spurling's test. I did discuss with the patient that I do believe they would benefit from a cervical epidural steroid injection. Risk and benefits were discussed with patient and they would like to proceed forward with this plan of care. Patient has tried and failed conservative therapy including oral medications, heat and ice, topicals, at home stretching exercise for longer than 12 weeks. Patient is un sure if he is ever had a cervical epidural. Patient's symptoms are consistent with the C6-C7 dermatome as he does have increased numbness into his thumb and index finger. Patient is on blood thinners and we will reach out to Dr. Hi's office and confirm he can stop this medication prior to this procedure. Patient will be ordered a compounded cream. Patient has had chronic neck pain that radiates out for longer than 6 months. Patient will be scheduled for a CASANDRA C6 or C7 under fluoroscopy. Patient has been instructed to contact the clinic with any concerns before the next appointment. Dr. Mendoza has reviewed this note and agrees with this plan of care. This note was dictated using voice recognition software and make contain errors or omissions. All injections are used with Lidocaine, Bupivacaine and dexamethasone unless otherwise stated as a diagnostic in which it has no steroid. Occasionally urine drug screen is needed to verify patient's compliance with our office pain contract. This is ordered based off specific treatments related to chronic pain with the potential to abuse certain medications.
== END 2024-09-11 23:59 | disposition home or self-care (01) ==
LOC: SC.PAIN 09:30
PROVIDERS: PCP Internal Medicine Adolescent Medicine; Visit Provider Nurse Practitioner Family
DX: M50.10 Cervical disc disorder with radiculopathy, unspecified cervical region (principal); Z79.891 Long term (current) use of opiate analgesic; Z79.01 Long term (current) use of anticoagulants
CPT/HCPCS: 99202; G0463

== ENCOUNTER 2024-09-20 15:15 | Outpatient (POV) | payer MEDICARE, SELFPAY ==
--- OUTSIDE RECORDS SUMMARY | 2024-08-09 11:45 | XMS_ITS ---
Author Organization [facility] D BASSEM Address [address] [place] [address] Care Team Providers Care Rad Tech Name Role Phone Maurilio Hi Primary Care Provider Allergies No Known Allergies Results Component Value Reference Range Notes BASIC METABOLIC PANEL (07440 ) Reviewed date:08/11/2024 12:39:58 PM Interpretation: Performing Lab:[facility], [facility] [address], [facility] Fredi Mendoza Notes/Report: NON-FASTING GLUCOSE 96 65-99 [...] a day; Duration: 14 days 05/22/2024 Active Senna 8.6 MG 1 tab(s) orally once a day (at bedtime); Duration: 90 days Active metOLazone 5 MG 1 tab(s) orally once a day; Duration: 30 days 05/18/2024 Active Apixaban 5 MG as directed orally 2 times a day Active Citalopram Hydrobromide 20 MG 1 tab(s) orally once a day; Duration: 90 days Active PROAIR HFA 90 MCG/INH INHALE 2 PUFFS BY MOUTH EVERY 4 HOURS NEEDED; Duration: 50 *Please review for potential replacement for e-prescription and drug interaction check* Active Bumetanide 1 MG 2tabs orally in the morning; Duration: 30 days Active Atorvastatin Calcium 80 MG 1 tab(s) orally once a day; Duration: 30 days Active Euthyrox 50 MCG (0.05 MG) 1 TAB(S) ORALLY ONCE A DAY; Duration: 30 DAYS *Please review and pick correct strength-formulati on from Veracode options. If intended option is not shown, discontinue and re-order from Quick Search* Active Memantine HCl 10 MG 1 tab orally twice a day; Duration: 30 days Active OXYGEN CONSERVER DIRECTED DX: J44.9 DIRECTED 2L *Please review for potential replacement for e-prescription and drug interaction check* 08/09/2017 Active Vitamin B1 100 MG 1 tab(s) orally once a day; Duration: 7 day(s) Active Tylenol 325 MG 2 tab(s) orally every 6 hours Active Carvedilol 3.125 MG 1 tab(s) orally 2 times a day Active MiraLax - DIRECTED ORALLY ONCE A DAY prn *Please review and pick correct strength-formulati on from [employer]ac[employer] options. If intended option is not shown, discontinue and re-order from Quick Search* Active Xhance 93 MCG/ACT 2 sprays (1 spray in each nostril) Nasally Twice a day Active Vitamin D (Ergocalciferol) 1.25 MG (34997 UT) 1 cap(s) orally every 2 weeks Active CPAP MACHINE WITH ADULT SETUP *Please review for potential replacement for e-prescription and drug interaction check* Active Trelegy Ellipta 100 MCG-62.5 MCG-25 MCG/INH 1 INH INHALED ONCE A DAY *Please review and pick correct strength-formulati on from [employer] options. 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, left heart catheter November 2017 with 20-30% [...] mild diabetes and mild heart disease. C nicole: alive, one , other son is healthy. [...] , Taking Vitamin D (Ergocalciferol) 1.25 MG (18485 UT) Capsule 1 cap(s) orally every 2 weeks , Taking CPAP MACHINE WITH ADULT SETUP , Notes to Pharmacist: *Please review for potential replacement for e-prescription and drug interaction check*, Taking Trelegy Ellipta 100 MCG-62.5 MCG-25 MCG/INH POWDER 1 INH INHALED ONCE A DAY , Notes to Pharmacist: *Please review and pick correct strength-formulation from Veracode options. If intended option is not shown, [...] *Please review and pick correct strength-formulation from Veracode options. If intended option is not shown, [...] *Please review and pick correct strength-formulation from Veracode options. 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 Examination Category Sub-Category Detail Notes Category Not [...]
--- OUTSIDE RECORDS SUMMARY | 2024-08-28 11:00 | XMS_ITS ---
Author Organization [facility] Address [address] [facility] [address] [place] [address] Care Team Providers Care Dried Fruit Washer Name Role Phone Maurilio Hi Primary Care Provider Allergies No Known Allergies REASON FOR VISIT [...] a day; Duration: 30 days 05/18/2024 Active Citalopram Hydrobromide 20 MG 1 tab(s) orally once a day; Duration: 90 days Active Clobetasol Propionate 0.05 % 1 vasyl applied topically 2 times a day; Duration: 14 days 05/22/2024 Active Memantine HCl 10 MG 1 tab orally twice a day; Duration: 30 days Active Euthyrox 50 MCG (0.05 MG) 1 TAB(S) ORALLY ONCE A DAY; Duration: 30 DAYS *Please review and pick correct strength-formulati on from [employer] options. If intended option is not shown, discontinue and re-order from Quick Search* Active Bumetanide 1 MG 2tabs orally in the morning; Duration: 30 days Active PROAIR HFA 90 MCG/INH INHALE 2 PUFFS BY MOUTH EVERY 4 HOURS NEEDED; Duration: 50 *Please review for potential replacement for e-prescription and drug interaction check* Active Atorvastatin Calcium 80 MG 1 tab(s) orally once a day; Duration: 30 days Active MiraLax - DIRECTED ORALLY ONCE A DAY prn *Please review and pick correct strength-formulati on from [employer] options. If intended option is not shown, [...] review and pick correct strength-formulati on from [employer] options. If intended option is not shown, [...] check* Active Vitamin D (Ergocalciferol) 1.25 MG (81670 UT) 1 cap(s) orally every 2 weeks Active Eliquis 5 MG as directed Orally Active Vital Signs Temperature 97.7 degrees Fahrenheit 08/29/19 25 Heart Rate 80 /min 08/28/2024 Blood pressure systolic 100 mm Hg 08/29/19 25 Blood pressure diastolic 50 mm Hg 025 Height 66.5 in 08/28/2024 Weight 258 lbs 08/28/2024 BMI 41.01 kg/m2 08/28/2024 Encounters Encounter Location Date Provider Diagnosis [facility] [address] [facility] [address] [place], [place] [address] 08/28/2024 Maurilio Hi Wound of left lower extremity, sequela S81.802S [...] Name:Maurilio Hi, 10/30/2024 12:00:00 PM, [address] [place] [facility] [address] [facility], [address], [place], [address], Progress Notes * Reji WELLERDOB: [birth year] (73 yo M)Acc No.[id number]:08/28/2024 Progress Notes Patient: Reij CUADRA Provider: Abdiaziz Hi MD :1950 A ge:73 Y S ex:Male Date:08/28/2024 [address] [id number] Subjective: * Chief Complaints: * 1 . [...] Sleep apnea on CPAP - equipment through [facility], left heart catheter November 2017 with 20-30% blockages. Medical therapy recommended, Wound on Left Hip. * Medications: T aking Eliquis 5 MG Tablet as directed Orally , Taking Xhance 93 MCG/ACT Exhaler Suspension 2 sprays (1 spray in each nostril) Nasally Twice a day , Taking Vitamin D (Ergocalciferol) 1.25 MG (91954 UT) Capsule 1 cap(s) orally every 2 weeks , Taking CPAP MACHINE WITH ADULT SETUP , Notes to Pharmacist: *Please review for potential replacement for e-prescription and drug interaction check*, Taking Trelegy Ellipta 100 MCG-62.5 MCG-25 MCG/INH POWDER 1 INH INHALED ONCE A DAY , Notes to Pharmacist: *Please review and pick correct strength-formulation from [employer] options. If intended option is not shown, [...] *Please review and pick correct strength-formulation from [employer] options. If intended option is not shown, [...] *Please review and pick correct strength-formulation from [employer] options. If intended option is not shown, [...] * Provider: Abdiaziz Hi MD Date: 0 08/28/2024 Generated for Tierney abad/Lisa/Amandoitting on: 09/20/2024 03:20 PM EDT History and Physical Notes * [...]
--- OUTSIDE RECORDS SUMMARY | 2024-08-30 12:00 | XMS_ITS ---
Author Organization [facility] Address [address] [facility] [address] [facility] [address] [place] [address] Care Team Providers Care Commercial Property Manager Name Role Phone Maurilio Hi Primary Care Provider [phone] REASON FOR VISIT 4 week follow up Encounters Encounter Location Date Provider Diagnosis [facility] [address] [place], [place] [address] 08/30/2024 Maurilio Hi Plan Of Treatment Next Appt Details Provider Name:Maurilio Hi, 10/30/2024 12:00:00 PM, [address], [address], [place], [place], [address], Progress Notes * Reji WELLER CeciliaDOB: [birth year] (73 yo M)Acc No.[id number]:08/30/2024 Progress Notes Patient: Reji CUADRA Provider: Abdiaziz Hi MD :1950 A ge:73 Y S ex:Male Date:08/30/2024 Address:[address] [id number] Subjective: * Chief Complaints: * 1 . 4 week follow up. * Medical History: Objective: * Vitals: Assessment: Plan: * Treatment: * * Electronic signature of Robert Hi MD FAAP on 09/20/2024 at 03:20 PM EDT Sign off status: Pending * Provider: Abdiaziz Hi MD Date: 0 08/30/2024 Generated for Tierney abad/Lisa/Kenyatta on: 0 09/20/2024 03:20 PM EDT
--- OUTSIDE RECORDS SUMMARY | 2024-09-20 15:22 | XMS_ITS | Clinical Summary ---
Author Organization Healthcare Address [address] [place] [address] Care Team Providers Care Director Packaging Name Role Phone Naresh Moura MD Primary Care Provider [phone] Allergies No known active allergies Medications albuterol [...] day. Active ergocalciferol (Vitamin D-2) 1.25 MG (03483 UT) capsule Take 1 capsule (50,000 Units) [...] any time in the past 12 m [facility], were you homeless or living in a halfway (including now)? No 03/16/2024 Utilities Answer Date [...] 2012 [facility]-Abdominal Aortic Aneurysm (AAA) Screening 2017 [id number] Vaccine ( season) 2023 02/18/2021, 07/03/2020, 06/05/2020 [...] age to complete this topic Insurance MEDICARE [facility] [place] [id number] Advance Directives Documents on File Type Date Recorded Patient Foreign Agent Expl anation Advance Directives and Livin g Will 03/25/2024 10:29 AM * Full Code (Latest Code Status on File) Date Activated Date Inactivated Comments 03/25/2024 11:45 AM * Full Code Date Activated Date Inactivated Comments 03/14/2024 12:59 PM 03/25/2024 11:45 AM Question Answer Comments Patient has decision-making capacity? Yes Care Teams Director Packaging Relationship Specialty Start Date End Date Naresh Moura MD [address] [place] [address] PCP - General 08/02/20
--- OUTSIDE RECORDS SUMMARY | 2024-09-20 15:22 | XMS_ITS | Patient Health Record ---
Author Organization [facility] Address [address] [facility] [address] [place] [address] Care Team Providers Care Learning Coordinator Name Role Phone Maurilio Hi Primary Care Provider [phone] Migration, Provider Unavailable Unavailable Allergies No Known Allergies Results Component Value Reference Range Notes BASIC METABOLIC PANEL (17849 ) Reviewed date:08/11/2024 12:39:58 PM Interpretation: Performing Lab:[facility] [address] [place], [place] Fredi Mendoza Notes/Report: NON-FASTING GLUCOSE 96 65-99 mg/dL Fasting reference interval UREA NITROGEN (BUN) 23 7-25 mg/dL CREATININE 1.35 0.70-1.28 mg/dL EGFR 56 > OR = 60 mL/min/1.73m2 BUN/CREATININE RATIO 17 6-22 (calc) SODIUM 142 135-146 mmol/L POTASSIUM 4.1 3.5-5.3 mmol/L CHLORIDE 102 98-110 mmol/L CARBON DIOXIDE 31 20-32 mmol/L CALCIUM 9.7 8.6-10.3 mg/dL PROTHROMBIN TIME-INR (8847) Reviewed date:05/24/2024 11:17:02 AM Interpretation: Performing Lab:[facility] [address], [place] Fredi Mendoza Notes/Report: NON-FASTING; NON-FASTING; NON-FASTING; NON-FASTING; NON-FAST INR 1.1 Reference Range 0.9-1.1 Moderate-intensity Warfarin Therapy 2.0-3.0 Higher-intensity Warfarin Therapy 3.0-4.0 PT 11.8 9.0-11.5 sec educational purposes only.) For additional information, please refer to [email or web address] (This link is being provided for informational/ CBC (INCLUDES DIFF/PLT) (727 5) Reviewed date:05/24/2024 11:17:02 AM Interpretation: Performing Lab:[facility] [address], [place] Fredi Mendoza Notes/Report: NON-FASTING; NON-FASTING; NON-FASTING; NON-FASTING; [...] MPV 12.0 7.5-12.5 fL ABSOLUTE NEUTROPHILS 8390 6224-0796 cells/uL ABSOLUTE LYMPHOCYTES 7489 850-3900 cells/uL ABSOLUTE MONOCYTES 1858 200-950 cells/uL ABSOLUTE EOSINOPHILS 534 15-500 cells/uL ABSOLUTE BASOPHILS 129 0-200 cells/uL NEUTROPHILS 45.6 LYMPHOCYTES 40.7 MONOCYTES 10.1 EOSINOPHILS 2.9 BASOPHILS 0.7 MAGNESIUM (622) Reviewed date:05/24/2024 11:17:01 AM Interpretation: Performing Lab:[facility] [address], [place] Fredi Mendoza Notes/Report: NON-FASTING; NON-FASTING; NON-FASTING; NON-FASTING; NON-FAST MAGNESIUM 2.1 1.5-2.5 mg/dL COMPREHENSIVE METABOLIC PANE L (11860) Reviewed date:05/24/2024 11:17:01 AM Interpretation: Performing Lab:[facility] [address] [place], [facility]gns[facility] Fredi Mendoza Notes/Report: NON-FASTING; NON-FASTING; NON-FASTING; NON-FASTING; [...] 20 10-35 U/L ALT 14 9-46 U/L THYROID PANEL WITH TSH (7444 ) Reviewed date:05/24/2024 11:17:01 AM Interpretation: Performing Lab:[facility] [address] [facility], [facility] CenterQolrKQ[address] Fredi Mendoza Notes/Report: NON-FASTING; NON-FASTING; NON-FASTING; NON-FASTING; NON-FAST T3 UPTAKE 27 22-35 % T4 (THYROXINE), TOTAL 6.6 4.9-10.5 mcg/dL FREE T4 INDEX (T7) 1.8 1.4-3.8 TSH 1.94 0.40-4.50 mIU/L Ultrasound : Abdomen Reviewed date:06/12/2024 11:42:24 AM Interpretation: Performing Lab: Notes/Report: Reason For Referral Reason Patient is having CT scan on Wednesday at [facility], see if they can do abdominal ultrasound on Wednesday morning Diagnosis 1 Right sided abdomina l pain (R10.9) Referral Organization [facility] Referring Provider First Name Maurilio Referring Provider Last Name Kolton Referring Provider Speciality Internal edicine General Notes Jaime oPwell 09/2024 10:11:51 AM > faxed to [facility] and they will add if they can Referral Priority Urgent Reason New PT - Yazidi? See if they can pick him up Diagnosis 1 Age-related physical debility (R54) Referral Organization [facility] Referring Provider First Name Maurilio Referring Provider Last Name Kolton Referring Provider Speciality Internal edicine Referred Provider Specialty Home Health General Notes Iwona Flores 2024 04:15:51 PM >sent to [facility] Referral Priority Routine Reason Dr. Mendoza Currently being d/c from [facility] physical therapy but pain is still an 10/29. Please eval Diagnosis 1 Back pain (M54.9) Referral Organization [facility] Referring Provider First Name Maurilio Referring Provider Last Name Kolton Referring Provider Speciality Internal edicine Referred Organization [facility] Referred Address [address] [place] [address], [place], [place],[address], Referred Provider Specialty Pain Managem ent General [...] review and pick correct strength-formulati on from [employer] options. If intended option is not shown, discontinue and re-order from Quick Search* Active Senna 8.6 MG 1 tab(s) orally once a day (at bedtime); Duration: 90 days Active Carvedilol 3.125 MG 1 tab(s) orally 2 times a day Active Apixaban 5 MG as directed orally 2 times a day Active Tylenol 325 MG 2 tab(s) orally every 6 hours Active metOLazone 5 MG 1 tab(s) orally once a day; Duration: 30 days 05/18/2024 Active Levocetirizine Dihydrochloride 5 MG 1 tab(s) orally once a day (in the evening) Active Citalopram Hydrobromide 20 MG 1 tab(s) orally once a day; Duration: 90 days Active Xhance 93 MCG/ACT 2 sprays (1 spray in each nostril) Nasally Twice a day Active Bumetanide 1 MG 2tabs orally in the morning; Duration: 30 days Active Eliquis 5 MG as [...] a day; Duration: 14 days 05/22/2024 Active CPAP MACHINE WITH ADULT SETUP *Please review for potential replacement for e-prescription and drug interaction check* Active Vitamin D (Ergocalciferol) 1.25 MG (94119 UT) 1 cap(s) orally every 2 weeks Active Atorvastatin Calcium 80 MG 1 tab(s) orally once a day; Duration: 30 days Active Immunizations Vaccine Route Administration Date Status Comme nts Boostrix Unknown 03/18/2020 Administered Covid Moderna Unknown 06/05/2020 Administered Covid Moderna Unknown 07/03/2020 Administered Fluzone High Dose IM Intramuscular 12/20/2018 Administered Fluzone High Dose IM Intramuscular 01/05/2020 Administered Fluzone High Dose IM Intramuscular 12/26/2020 Administered Influenza-Fluzone 3+years (NON-MEDICARE) IM Intramuscular 12/02/2016 Administered Influenza-Fluzone 3+years (NON-MEDICARE) IM Intramuscular 12/08/2017 Administered Pneumococcal Vaccine Unknown 12/04/2016 Administered Pneumovax 23 IM Intramuscular 12/20/2018 Administered Prevnar PCV-13 (Pneumococcal conjugate 13) IM Intramuscular 12/08/2017 Administered SHINGRIX Unknown 03/18/2020 Administered SHINGRIX Unknown 05/17/2020 Administered Zostavax (Shingles) SC Subcutaneous 12/02/2016 Administere d Social History Tobacco Use: Social History Observation Description Date Details (start date - stop date) Former Smoker NA - NA Smoking: Question Answer Notes Are you a: former smoker How long has it been since you last smoked? > 10 years Problems Problem Type SNOMED Code ICD Code Onset Dates Problem Status W/U Status Risk Notes Problem Vascular dementia without behavioral disturbance (31763274943332436 ) Vascular dementia 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) Active confirmed Problem Chronic pain (95620089) Other chronic pain (G89.29) Active confirmed Problem Chronic kidney disease due to hypertension (412202013582581) Hypertensive chronic kidney disease with stage 1 through stage 4 chronic kidney disease, or unspecified chronic kidney disease (I12.9) Active confirmed Problem Seasonal allergic rhinitis (153000094) Other seasonal allergic rhinitis (J30.2) Active confirmed Problem Allergic rhinitis (60379042) Other allergic rhinitis (J30.89) Active confirmed Problem Sciatica (99042930) Lumbago with sciatica, unspecified side (M54.40) Active confirmed Problem Sciatica (90178140) Lumbago with sciatica, left side (M54.42) Active confirmed Problem Age-related physical debility (R54) Active confirmed Problem Mixed anxiety and depressive disorder (258752976) Depression with anxiety (F41.8) Active confirmed Problem Hyperlipidemia (67847150) Hyperlipidemia (E78.5) Active confirmed Problem Essential hypertension (35228762) Essential hypertension (I10) Active confirmed Problem Erectile dysfunction (disorder) (070005501) Erectile dysfunction, unspecified erectile dysfunction type (N52.9) Active confirmed Problem COPD - Chronic obstructive pulmonary disease (73131053) Chronic obstructive pulmonary disease, unspecified COPD type (J44.9) Active confirmed Problem Acquired hypothyroidism (683955814) Acquired hypothyroidism (E03.9) Active confirmed Problem Non-rheumatic mitral regurgitation (913774124) Non-rheumatic mitral regurgitation (I34.0) Active confirmed Problem Chronic pulmonary embolism (795031095429327) Other chronic pulmonary embolism (I27.82) Active confirmed Problem Dysthymia (67228871) Dysthymia (F34.1) Active confirmed Problem Tricuspid valve disorder, non-rheumatic (477004506) Non-rheumatic tricuspid valve insufficiency (I36.1) Active confirmed Problem Obstructive sleep apnea syndrome (03840388) ISAAC (obstructive sleep apnea) (G47.33) Active confirmed Problem Atherosclerotic heart disease of [place] coronary artery without angina pectoris (764217785993024) Atherosclerotic heart disease (I25.10) Active confirmed Problem Dry eyes (659512057) Dry eyes (H04.123) Active confirmed Problem Multi-infarct dementia, uncomplicated (08064487) Multi-infarct dementia, 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) Active confirmed Problem Left ventricular diastolic dysfunction (698575909) Diastolic CHF with preserved left ventricular function, NYHA class 2 (I50.30) Active confirmed Problem Aortic stenosis, non-rheumatic (754044034) Nonrheumatic aortic valve stenosis (I35.0) Active confirmed Problem History of cerebrovascular accident without residual deficits (077184014) History of CVA (cerebrovascular accident) (Z86.73) Active confirmed Problem Chronic diastolic heart failure (458136710) CHF NYHA class II, chronic, diastolic (I50.32) Active confirmed Problem Mild cognitive disorder (021758668) Mild cognitive impairment with memory loss (G31.84) Active confirmed Problem Mild major depression, single episode (49534219) Mild single current episode of major depressive disorder (F32.0) Active confirmed Problem Leukocytosis (192137006) Leukocytosis, unspecified type (D72.829) Active confirmed Problem Acute exacerbation of chronic obstructive airways disease (020059609) Acute exacerbation of chronic obstructive pulmonary disease (COPD) (J44.1) Active confirmed Problem Other acute pulmonary embolism with acute cor pulmonale (I26.09) Active confirmed Problem Chronic renal failure syndrome (83455853) Chronic kidney disease, unspecified CKD stage (N18.9) Active confirmed Problem Myocardial infarction due to demand ischemia (disorder) (30312675139011123 ) Myocardial infarction type 2 (I21.A1) Active confirmed Problem Thyroid enlargement (7263689) Thyroid enlargement (E04.9) Active confirmed Problem Laboratory test result abnormal (069739839) Abnormal laboratory test result (R89.9) Active confirmed Problem Hypertensive heart failure (98211911) Hypertensive heart disease with congestive heart failure, unspecified heart failure type (I11.0) Active confirmed Vital Signs Heart Rate 80 /min 08/28/2024 Temperature 97.7 degrees Fahrenheit 08/28/2024 Oximetry 93 05/22/2024 93% RA Blood pressure diastolic 50 mm Hg 08/28/2024 Height 66.5 in 08/28/2024 Blood pressure systolic 100 mm Hg 08/28/2024 Weight 258 lbs 08/28/2024 BMI 41.01 kg/m2 08/28/2024 Encounters Encounter Location Date Provider Diagnosis [facility] [address] [place] [address] 06/24/2024 Provider Migration [facility] [address] [place] [address] 04/17/2024 Maurilio Hi Encounter for examination following treatment at hospital Z09 ; Nontraumatic compartment syndrome of left lower extremity M79.A22 ; Essential hypertension I10 ; Chronic kidney disease, unspecified CKD stage N18.9 and Hyperlipidemia E78.5 [facility] [address] [place] [address] 05/22/2024 Maurilio Hi Acquired aplastic anemia D61.89 ; History of CVA (cerebrovascular accident) Z86.73 ; Diastolic CHF with preserved left ventricular function, NYHA class 2 I50.30 ; Acquired hypothyroidism E03.9 ; Compartment syndrome of left lower extremity, sequela T79.A22S ; Facial rash R21 and Routine medical exam Z00.00 [facility] [address] [place], [place] [address] 05/26/2024 Maurilio Hi Right sided abdomina l pain R10.9 [facility] [address] [place] [address] 07/26/2024 Maurilio Besson Other chronic pulmonary embolism I27.82 ; Chronic kidney disease, unspecified CKD stage N18.9 ; CHF NYHA class II, chronic, diastolic I50.32 ; History of CVA (cerebrovascular accident) Z86.73 ; Essential hypertension I10 ; Chronic obstructive pulmonary disease, unspecified COPD type J44.9 ; Mild cognitive impairment with memory loss G31.84 ; Hyperlipidemia E78.5 and Age-related physical debility R54 [facility] [address] [place] [address] 08/09/2024 Maurilio Besson Diastolic CHF with preserved left ventricular function, NYHA class 2 I50.30 ; Seborrheic dermatitis L21.9 and Other seasonal allergic rhinitis J30.2 [facility] [address] [place] [address] 08/28/2024 Maurilio Besson Wound of left lower extremity, sequela S81.802S [facility] [address] [place] [address] 03/29/2024 Maurilio Besson [facility] [address] [place] [address] 04/01/2024 Maurilio Besson [facility] [address] [place] [address] 04/13/2024 Maurilio Besson [facility] [address] [place] [address] 04/14/2024 Maurilio Besson [facility] [address] [place] [address] 04/18/2024 Maurilio Besson [facility] [address] [place] [address] 04/24/2024 Maurilio Besson [facility] [address] [place] [address] 04/25/2024 Maurilio Besson [facility] [address] [place] [address] 05/01/2024 Maurilio Besson [facility] [address] [place] [address] 05/15/2024 Maurilio Besson [facility] [address] [place] [address] 05/18/2024 Maurilio Besson [facility] [place] [address] [facility] [place] [address] 05/26/2024 Maurilio Besson [facility] [address] [place] [address] 06/12/2024 Maurilio Besson [facility] [address] [place] [address] 06/16/2024 Maurilio Besson [facility] [place] [address] [facility] [place] [address] 08/17/2024 Maurilio Besson [facility] [address] [place] [address] 08/17/2024 Maurilio Besson [facility] [address] [place] [address] 08/21/2024 Maurilio Besson [facility] [address] [place] [address] 08/23/2024 Maurilio Besson [facility] [address] [place] [address] 08/31/2024 Maurilio Besson [facility] [address] [place] [address] 09/04/2024 Maurilio Besson [facility] [address] [place] [address] 09/06/2024 Maurilio Besson [facility] [address] [place] [address] 05/18/2024 Maurilio Besson Assessments Encounter Date Diagnosis [...] of at home. She specifically request the [facility] number and I gave this to her. She will investigate whether or not this is an option. Otherwise continue home health. Reviewed as noted 04/17/2024 Encounter for examination following treatment at hospital (ICD-10 - Z09) Patient developed RSV pneumonia and was transferred from [facility] to for higher acuity care. During his stay, he developed compartment syndrome and underwent fasciotomy. He was sent to [facility] for rehab. Since returning home, he is being seen by home health for wound care and dressing changes. His is interested in care home facility due to her struggling to take care of him. I gave them information for [facility]. 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 They qualify for home health evaluation for PT/OT evaluation as well as nursing care, home safety and follow-up medical care. 04/17/2024 Other Follow up in 3 weeks. 07/26/2024 Other Please note I spent over 30minutes in [facility] patient care Plan Of Treatment [...] [address], [place], [address], Insurance Providers Payer Name Payer Address Payer Phone Subscriber Number Group Number Insured Name Patient Relationship to Insured Coverage Start Date Coverage End Date [place] [address] [place] [place] [address] [id number] Reji Carrillo Self - patient is the insured [employer] [address] [address] [place] [address] [id number] Reji Carrillo Self - patient is the [...] back surgeries - back related injuries 1 98/1987 lt rotator cuff surgery 1994 rt hit replacement 12/2014 rt knee replacement 12/2015 lt knee replacement 02/19/2016 tooth-extractions 1998 bilateral eye-surgery 2009 colonoscopy with isolated hyperplastic p olyp 08/2014 Heart Cath 2017 Ear tube- left ear 06/09/2018 Compartment Syndrome- Dr. Joshi 02/2024 Lt leg surgery- 02/2024 Hospitalization History Reason Date(Month/Year) [facility] 03/2024 Lt leg surgery- 02/2024 blood clot-lt leg and lung, kidney failu re, lack of oxygen 02/2016 all above surgeries
--- OUTSIDE RECORDS SUMMARY | 2024-09-20 15:22 | XMS_ITS | Clinical Summary ---
Author Organization [facility] ([place], [place], [place], [place]) Address [address] [place] [address] Care Team Providers Care Internet Marketing Consultant Name Role Phone Skyler Guerra MD Unavailable [phone] Randi Baumann MD Unavailable [phone] Humera Kelley Unavailable Provider, Not In System Unavailable Unavaila Niels Rivas MD Unavailable [phone] Giovanni Cerrato STUNNER ANIMAL Unavailable [phone] Grady English MD Unavailable Lidya Douglas PA-C Primary Care Provider [phone] Hilda Jama STUNNER ANIMAL Unavailable Allergies No known active allergies Medications [...] drink = 0.6 oz pur e alcohol) Food Insecurity Answer Date Recorded Food run [...] Date Vahid rded Speak language other than Qatari at home Not on file 04/03/2023 Want help with school or training Not on file 04/03/2023 Substance Use Answer Date Recorded Used [...] Medicare Initial AWV [id number] 09/20/2018 COVID-19 VACCINE ( - 2023-2 5 season) 2023 02/18/2021, 07/03/2020, 06/05/2020 Falls Risk Screening 03/22/2024 Tobacco Cessation Counseling and Screening (12+) 08/16/2024 08/17/2023 Influenza Vaccine (Season Ended) 2024 12/31/2022, 11/28/2021, 12/26/2020, Additional history exists DTAP/TDAP/TD VACCINES (2 - T d or Tdap) 03/18/2030 03/18/2020 Pneumococcal 50+ years Completed 12/20/2018, 2017 Shingles Vaccine (Zoster) Completed 2020, 03/18/2020, 12/02/2016 Insurance 2023 [address] [place] [id number] [address] [place] [address] [place] [address] Care Teams Internet Marketing Consultant Relationship Specialty Start Date End Date Lidya Douglas PA-C [address] [place] [address] PCP - General 08/12/23 Skyler Guerra MD [address] [place] [address] Pediatric Licensed Practical Nurse Pulmonary Disease 10/28/22 Randi Baumann MD [address] [place] [address] Consulting Physician General Internal Medicine 10/28/22 Humera Kelley [address] [place], [place] [id number] Neurologist Neurology 10/28/22 Provider, Not In System [place] Referring Physician Cardiology 10/28/22 Niels Dawn MD [address] [facility] [address] [place], [place] [address] Surgeon Cardiothoracic Surgery 11/03/22 Giovanni Cerrato, STUNNER ANIMAL [address] [facility] [address] [place], [place] [id number] Nurse Practitioner Cardiology 06/10/23 Grady English MD [address] [facility] [place] [address] Interventional Cardiology 06/15/23 Hilda Jama, STUNNER ANIMAL [address] [facility] [address] [place], [place] [id number] Cardiology 08/17/23
--- OUTSIDE RECORDS SUMMARY | 2024-09-20 15:22 | XMS_ITS | Referral Summary ---
Author Organization [facility] ([place], [place], [place], [place]) Address [address] [place] [address] Care Team Providers Care Outdoor Recreation Specialist Name Role Phone Skyler Guerra MD Unavailable [phone] Randi Baumann MD Unavailable [phone] Humera Kelley Unavailable Provider, Not In System Unavailable Unavaila Niels Rivas MD Unavailable [phone] Giovanni Cerrato MACHINE OPERATOR GENERAL Unavailable [phone] Grady English MD Unavailable Lidya Douglas PA-C Primary Care Provider [phone] Hilda Jama MACHINE OPERATOR GENERAL Unavailable Allergies No known active allergies Medications [...] Date Vahid rded Speak language other than Dutch at home Not on file 04/03/2023 Want [...] Not on file Insurance 2023 [place] [id number] MEDICARE PART A B Care Teams Outdoor Recreation Specialist Relationship Specialty Start Date End Date Lidya Douglas PA-C [address] [place] [address] PCP - General 08/12/23 Skyler Guerra MD [address] [place] [address] Commercial Singer Pulmonary Disease 10/28/22 Randi Baumann MD [address] [place] [address] Consulting Physician General Internal Medicine 10/28/22 Humera Kelley [address] [place] [address] Neurologist Neurology 10/28/22 Provider, Not In System [place] Referring Physician Cardiology 10/28/22 Niels Dawn MD [address] [facility] [address] [place] [address] Surgeon Cardiothoracic Surgery 11/03/22 Giovanni Cerrato, MACHINE OPERATOR GENERAL [address] [facility] [address] [place] [address] Nurse Practitioner Cardiology 06/10/23 Grady English MD [address] [facility] [place] [address] Interventional Cardiology 06/15/23 Hilda Jama, MACHINE OPERATOR GENERAL [address] [facility] [address] [place] [address] Cardiology 08/17/23
--- OUTSIDE RECORDS SUMMARY | 2024-09-20 15:22 | XMS_ITS | Data Portability ---
Author Organization [facility] [place] [place] ADMIN Address [address] [place] [id number] Assessment No assessment recorded. Plan of Treatment [...] abdom en No observ ation record ed. [email or web address] Not Available 2023 15:51:53 Result Notes None recorded. Procedures Surgical History Date Name Laterality Status Provider Name and Address Organization Details Recorded Time 03/22/19 19 Joint Replacement completed Thierry HAMLIN - [facility] [place] 10/28/2023 14:08:33 03/22/19 18 Colonoscopy completed Thierry HAMLIN - [facility] [place] 10/28/2023 14:08:33 03/22/19 18 Hip Surgery completed Thierry HAMLIN - [facility] [place] 10/28/2023 14:08:33 03/22/19 05 LASIK completed Thierry HAMLIN - [facility] [place] 10/28/2023 14:08:33 03/22/18 85 Back Surgery completed Thierry HAMLIN - [facility] [place] 10/28/2023 14:08:33 03/22/18 62 Other completed Thierry HAMLIN - [facility] [place] 10/28/2023 14:08:33 01/01/19 62 Appendectomy completed Thierry HAMLIN - [facility] [place] 10/28/2023 14:08:33 03/22/18 55 Tonsillectomy/Ad enoidectomy completed Thierry HAMLIN - [facility] [place] 10/28/2023 14:08:33 03/22/18 54 Splenectomy completed Thierry HAMLIN - [facility] [place] 10/28/2023 14:08:33 Imaging Results None recorded. Procedure [...] and Address Organization Details Last Updated DateTime 051047. 65 g 42.6 kg/m2 165.1 cm 98.4 [degF] 88 % 88 % 98 /min 124 mm[Hg] 64 mm[Hg] Thierry [place] [facility] [place] 14:13:24 Social History Question Answer Notes LastModified by Organizat ion Details LastModified Time Tobacco Smoking Status Never Smoker YAKELIN Mackey [facility] [place] 10/28/2023 14:08:27 Do You Have An Advance Directive? No [email or web address] Information not available 10/28/2023 Are You Blind Or Do You Have Difficulty Seeing? No [email or web address] Information not available 10/28/2023 What Was The Date Of Your Most Recent Tobacco Screening? 10/27/2023 Information not available 10/28/2023 Are You Passively Exposed To Smoke? No [email or web address] Information not available 10/28/2023 How Much Tobacco Do You Smoke? No [email or web address] Information not available 10/28/2023 How Many Years Have You Smoked Tobacco? 0 Information not available 10/28/2023 Sex: Male Functional Status Question Answer Note LastModified by Organizat ion Details LastModified Time Do you use any illicit or recreational drugs? No [email or web address] Information not available 10/28/2023 What is your level of alcohol consumption? Moderate [email or web address] Information not available 10/28/2023 Do you or have you ever used smokeless tobacco? Never used smokeless tobacco [email or web address] Information not available 10/28/2023 What is your exercise level? Occasional Information not available 10/28/2023 Mental Status Question Answer Note LastModified by Organization D etails LastModified Time Do you feel stressed (tense, restless, nervous, or anxious, or unable to sleep at night)? [id number] [email or web address] Information not available 10/28/2023 Family History Nothing Reported. Medical History Condition Response Obesity Y Clotting Disorder Y Arthritis Y High Cholesterol Y Congestive Heart Failure (CHF) Y Back Problems Y Deep Vein Thrombosis Y Obstructive Sleep Apnea Y Hypertension Y COPD Y Past Encounters Encounter ID Performer Location Encounter Start Date Encounter Closed Date Diagnosis/Indication Diagnosis SNOMED-CT Code Diagnosis ICD10 Code Diagnosis Note [id number] Nanda Knox MD [facility] [address] [facility] [address] [place] [address] 10/28/2023 13:42:36 10/28/2023 14:42:05 [place] 268274858 K80.20 Occasional ly symptomati c cholelithi asis. [...] structures . Chronic ob structive pulmonary disease 95604368 J44.9 COPD, not oxygen dependent. Patient walked down the hallway x2 on the way to the appointmen t and is visibly short of air. Coronary arteriosclerosis [id number] I25.10 Known coronary artery disease, currently maintained [...] ID Guarantor Name 10/28/2023 1 [place]IC[place] ([place]ICARE[place] [facility] [id number] [facility] 10/28/2023 2 [employer] - [employer] (MEDICARE SUPPLEMENT) [facility] [id number] [facility] Notes Date Note Type Note Provider [...] pain with extensive workup with cardiology in [place]. 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 Patient states that he has not been contacted regarding this. Nanda Knox MD [address] [place] [address], [place], [address], [facility] [place] [facility] [place] 10/28/2023 15:53:21
[2024-09-20 15:49] VITALS: BP 109/50; PULSE 80; RESP 18; O2SAT 94; BMI 40.8
--- NOTE | 2024-09-20 16:04 | EXP.PAIN.SOA ---
[facility] Disclaimer: The information contained in this section may have been updated after the patient was seen, as this information can be updated by other users. Medical History Compartment syndrome Non-functioning tympanostomy tube Debris in left ear canal Chronic sinusitis Acute and chronic respiratory failure with hypoxia SNHL (sensorineural hearing loss) ILD (interstitial lung disease) Sleep apnea Gall stone History of sleep apnea COPD exacerbation Allergic rhinitis Restrictive lung disease Allergic rhinitis History of smoking 30 or more pack years Dyspnea on exertion COPD (chronic obstructive pulmonary disease) Dyspnea on exertion Moderate aortic stenosis Active follow-up with cardiology at [facility] Mild aortic stenosis Pre-op evaluation HLD (hyperlipidemia) Pulmonary embolism CHF (congestive heart failure) Pulmonary hypertension HHD (hypertensive heart disease) CAD (coronary artery disease) DVT (deep venous thrombosis) Fatigue HTN (hypertension) Aortic valve stenosis Surgical History Status post arthroscopy of hip History of arthroscopic knee surgery Family History Other Stroke Social History (Updated 09/11/24 @ 09:59 by Ирина Chairez RN) Smoking Status: Former smoker tobacco type: cigarettes second hand exposure: No alcohol intake: never substance use type: denies use current occupational status: retired Travel in the last 8 weeks?: None household members: significant other housing: house current occupational exposures/hazards: No caffeine: Yes Have you lived/traveled outside [place] in past 30 days?: No Contact w/someone who lives/traveled outside US past 30 days?: No Exposure to someone with infectious disease in past 14 days?: No Do you have a fever (greater than 100.4 F or 38 C)?: No Have you tested positive for COVID-19?: No Exposed to someone with COVID-19 in past 14 days?: No Do you have a sore throat?: No Do you have a cough?: No Do you have any weakness?: No Do you have any diarrhea?: No Are you experiencing any unusual bleeding?: No Do you have any muscle aches/pain?: No Do you have any abdominal pain?: No Are you experiencing loss of taste or smell?: No PM Subjective & Objective Subjective Subjective:: Patient is a pleasant 73-year-old male who presents today for follow-up. He rates his pain today a 8 out of 10. He denies any new changes. 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 We had submitted for cervical epidural of C6-C7 however patient is on blood thinner and would have to stop this medication prior to this injection. He states that one of the providers there at [facility] office did state that he could do the Lovenox bridge and to let them know if they would like to try that. Patient and spouse are agreeable to this option. Patient would really like to see if these would provide significant improvement of his symptoms. Patient did get the compounded cream and states it does help some however it is not an extreme difference. His Win has been reviewed and is appropriate. Review of Systems: General: No recent weight changes, no fever, no sleep disturbances Respiratory: No cough, no shortness of air, no recurring pulmonary infections Cardiovascular/peripheral vascular: No chest pain, no palpitations, no edema, no shortness of breath Gastrointestinal: No new onset incontinence, normal bowel movements reported Genitourinary: No new onset incontinence Musculoskeletal: Neck pain, bilateral arm numbness tingling, hand numbness tingling Psychiatric: [Normal mood/affect] Neurological: [Denies weakness in extremities], [denies balance issues] Pain at rest (0-10 scale): 8 Objective Objective:: Physical Exam: General: Alert and oriented x3, no acute distress, pleasant and cooperative Lungs: Respirations even and unlabored, symmetrical chest expansion Eyes: PERRL Musculoskeletal: Flexion and extension of cervical [spine] somewhat guarded secondary to pain, [antalgic gait noted] positive Spurling's test Neurological: Speech clear, no gross sensory deficit Has patient had previous pain injection?: No Conservative treatment options previously tried: Home exercise plan Length of treatment: Longer than 12 weeks Meds Home Medications and Allergies Home Medications ?Medication ?Instructions ?Recorded ?Confirmed ?Type citalopram 20 mg tablet 20 mg PO DAILY dementia 30 days 12/22/22 09/20/24 Rx #90 tabs levocetirizine 5 mg tablet 5 mg PO DAILY 10/11/23 09/20/24 History azelastine 137 mcg (0.1 %) nasal 1 spray intranasal BID 90 days #90 12/01/23 09/20/24 Rx spray mL fluticasone propionate 50 2 spray intranasal DAILY 90 days 12/01/23 09/20/24 Rx mcg/actuation nasal #16 grams spray,suspension (Flonase Allergy Relief) ergocalciferol (vitamin D2) 1,250 1,250 mcg PO Q2W 12/20/23 09/20/24 History mcg (50,000 unit) capsule levothyroxine 50 mcg tablet 50 mcg PO DAILY 03/08/24 09/20/24 History acetaminophen 325 mg tablet 650 mg (2 x 325 mg) PO Q6HP PRN 03/13/24 09/20/24 Rx fever or pain #0 tabs bumetanide 1 mg tablet 2 mg (2 x 1 mg) PO DAILY #180 tabs 03/30/24 09/20/24 Rx cholecalciferol (vitamin D3) 1,250 1,250 mcg PO .every two weeks #7 04/17/24 09/20/24 Rx mcg (50,000 unit) capsule caps collagenase clostridium histo. 250 250 unit topical DIRECTED Skin 04/17/24 09/20/24 History unit/gram topical ointment (Santyl) Condition ketoconazole 2 % topical cream 1 applic topical DIRECTED Skin 04/17/24 09/20/24 History Condition polyethylene glycol 3350 17 17 g PO DAILY 04/17/24 09/20/24 History gram/dose oral powder (Miralax) sennosides 8.6 mg-docusate sodium 1 tab-cap PO HS 04/17/24 09/20/24 History 50 mg tablet (Senna with Docusate Sodium) atorvastatin 80 mg tablet 80 mg PO DAILY #90 tabs 06/05/24 09/20/24 Rx albuterol sulfate 90 mcg/actuation 1 inh inhalation QID PRN shortness 06/08/24 09/20/24 Rx aerosol inhaler of breath or wheezing 90 days #8.5 grams apixaban 5 mg tablet (Eliquis) 5 mg PO BID #180 tabs 06/19/24 09/20/24 Rx thiamine HCl (vitamin B1) 100 mg See Rx Instructions .Route 06/20/24 09/20/24 Rx tablet .COMPLEX #30 tabs methylprednisolone 4 mg tablets in See Rx Instructions PO PER PKG DIR 06/26/24 09/20/24 Rx a dose pack (Medrol ([place])) #21 tabs ciprofloxacin 0.3 %-dexamethasone 4 drp otic (ear) BID 06/28/24 09/20/24 History 0.1 % ear drops,suspension memantine 10 mg tablet See Rx Instructions .Route 07/24/24 09/20/24 Rx .COMPLEX #60 tabs fluticasone fur. 100 mcg-umeclid 1 inh inhalation DAILY 90 days #90 08/24/24 09/20/24 Rx 62.5 mcg-vilant 25 mcg ea inhalat.powder (Trelegy Ellipta) New Prescriptions to Start Prescriptions: Allergies Allergy/AdvReac Type Severity Reaction Status Date / Time No Known Allergies Allergy Verified 07/13/24 13:19 Assessment and Plan *Assessment and plan (1) Cervical radiculopathy: Status: Acute Category: Medical Code(s): M54.12 - Radiculopathy, cervical region (2) Degenerative disc disease, cervical: Status: Acute Category: Medical Code(s): M50.30 - Other cervical disc degeneration, unspecified cervical region Plan I did discuss with the patient and his spouse that I do believe he would still be a very beneficial candidate of the cervical epidural. Patient would like our office to reach back out to Dr. Martinez's office to see about doing the Lovenox bridge. Patient was counseled that we will call him once I have an update regarding this. I will in the meantime sending in a prescription of methocarbamol 750 mg 3 times a day. With a 2-week supply. We will follow-up in future on how this helps. Patient has been instructed to contact the clinic with any concerns before the next appointment. Dr. Mendoza has reviewed this note and agrees with this plan of care. This note was dictated using voice recognition software and make contain errors or omissions. All injections are used with Lidocaine, Bupivacaine and dexamethasone. Occasionally urine drug screen is needed to verify patient's compliance with our office pain contract. This is ordered based off specific treatments related to chronic pain with the potential to abuse certain medications.
== END 2024-09-20 23:59 | disposition home or self-care (01) ==
PROVIDERS: PCP Internal Medicine Adolescent Medicine; Visit Provider Nurse Practitioner Family
DX: M54.12 Radiculopathy, cervical region (principal); M50.30 Other cervical disc degeneration, unspecified cervical region
CPT/HCPCS: 99212; G0463

== ENCOUNTER 2024-10-31 12:49 | Day surgery (SDC) | payer MEDICARE, SELFPAY ==
[2024-10-31 13:02] VITALS: BP 144/65; PULSE 75; RESP 18; O2SAT 94; BMI 40.1
--- NOTE | 2024-10-31 13:18 | P.PCN_ITS ---
Procedure Date: 10/31/24 Time: 13:00 Anesthesiologist:: Chandler Doherty CRNA Complications:: None Pre-procedure Diagnosis:: Degenerative disc cervical spine multilevels. Cervical radiculopathy Post-procedure Diagnosis:: Same Indications for Procedure:: Patient is a very pleasant 74-year-old male who comes our clinic today for cervical epidural steroid injection. Patient describes posterior cervical neck pain as well as bilateral arm radicular symptoms at times. He rates his pain 7/10. Procedure Details:: Procedure:Cervical epidural steroid injection Informed consent was obtained and the risks and benefits of the procedure were explained to the patient. The patient was taken to the procedure room and noninvasive monitors placed, including noninvasive blood pressure cuff and pulse oximeter. The neck was prepped using Chloraprep as a cleansing solution. The C6- C7 interspace was viewed using fluroscopy. The skin and subcutaneous tissues were anesthetized using lidocaine 1.5% and a 25-gauge needle. After this an 18- gauge Touhy epidural needle was placed into the C6-C7 interspace under fluroscopy guidance and advanced using loss of resistance to air until the epidural space was encountered. After confirmation of needle placement in the epidural space using contrast dye, dexamethasone 10 mg ( 1 ML) was incrementally injected into the cervical epidural space.~ The patient tolerated the procedure well with no complications. The patient was observed in the Pain Clinic and then discharged home neurologically intact. Plan and Disposition:: Patient was discharged without incident.
[2024-10-31 13:28] VITALS: BP 148/64; PULSE 68; RESP 18; O2SAT 95
[2024-10-31] MEDS: DEXAMETHASONE 10MG/ML 1ML VIAL 10 MG (13:37)
[2024-10-31 14:17] VITALS: BP 144/65; PULSE 75; RESP 18; O2SAT 94
[2024-10-31 14:18] VITALS: BP 144/65; PULSE 75; RESP 18; O2SAT 94
== END 2024-10-31 13:28 | disposition home or self-care (01) ==
PROVIDERS: PCP Internal Medicine Adolescent Medicine; Visit Provider Nurse Anesthetist, Certified Registered
DX: M50.123 Cervical disc disorder at C6-C7 level with radiculopathy (principal); I25.10 Atherosclerotic heart disease of native coronary artery without angina pectoris; I11.0 Hypertensive heart disease with heart failure; I50.9 Heart failure, unspecified; J44.9 Chronic obstructive pulmonary disease, unspecified; Z86.718 Personal history of other venous thrombosis and embolism; E78.5 Hyperlipidemia, unspecified; I35.0 Nonrheumatic aortic (valve) stenosis; I27.20 Pulmonary hypertension, unspecified; G47.30 Sleep apnea, unspecified; Z87.891 Personal history of nicotine dependence; Z79.899 Other long term (current) drug therapy
CPT/HCPCS: 64479; J1100

== ENCOUNTER 2024-12-13 16:21 | Emergency (ER) | payer MEDICARE, SELFPAY ==
--- OUTSIDE RECORDS SUMMARY | 2024-08-30 12:00 | XMS_ITS ---
Author Organization [facility] Address [address] [facility] [address] [facility] [address] [place] [address] Care Team Providers Care Geothermal Technician Name Role Phone Maurilio Hi Primary Care Provider [phone] REASON FOR VISIT 4 week follow up Encounters Encounter Location Date Provider Diagnosis [facility] [address] [place], [place] [address] 08/30/2024 Maurilio Hi Plan Of Treatment Next Appt Details Provider Name:Maurilio Hi, 01/01/2025 12:30:00 PM, [address], [address], [place], [place], [address], Progress Notes * Reji WELLER CeciliaDOB: [birth year] (74 yo M)Acc No.[id number]:08/30/2024 Progress Notes Patient: Reji CUADRA Provider: Abdiaziz Hi MD :1950 A ge:73 Y S ex:Male Date:08/30/2024 Address:[address] [id number] Subjective: * Chief Complaints: * 1 . 4 week follow up. * Medical History: Objective: * Vitals: Assessment: Plan: * Treatment: * * Electronic signature of Robert Hi MD FAAP on 12/13/2024 at 04:40 PM EDT Sign off status: Pending * Provider: Abdiaziz Hi MD Date: 0 08/30/2024 Generated for Tierney abad/Lisa/Kenyatta on: 0 12/13/2024 04:40 PM EDT
--- OUTSIDE RECORDS SUMMARY | 2024-10-30 08:00 | XMS_ITS ---
Author Organization [facility] Address [address] [place] [address] Care Team Providers Care Dredge Runner Name Role Phone Mykelselina Maurilio Primary Care Provider [phone] Allergies No Known Allergies Results Component Value Reference Range Notes THYROID PANEL WITH TSH (7444 ) Reviewed date:11/03/2024 08:28:23 AM Interpretation: Performing Lab:[facility]AN [facility] Uoge[address] [employer]Authorly, Vishay Precision GroupUauzGW[address] Fredi Mendoza Notes/Report: NON-FASTING; NON-FASTING; NON-FASTING; NON-FASTING; NON-FAST T3 UPTAKE 27 22-35 % T4 (THYROXINE), TOTAL 5.4 4.9-10.5 mcg/dL FREE T4 INDEX (T7) 1.5 1.4-3.8 TSH 6.90 0.40-4.50 mIU/L LIPID PANEL, STANDARD (7600) Reviewed date:11/03/2024 08:28:23 AM Interpretation: Performing Lab:[facility] Gohp1233 [employer] Companytel [place], Vishay Precision GroupOxtySS[address] Fredi Mendoza Notes/Report: NON-FASTING; NON-FASTING; NON-FASTING; NON-FASTING; NON-FAST CHOLESTEROL, TOTAL 113 <200 mg/dL HDL CHOLESTEROL 32 > OR = 40 mg/dL TRIGLYCERIDES 158 <150 mg/dL LDL-CHOLESTEROL 57 Reference range: <100 Desirable range <100 mg/dL for primary prevention; <70 mg/dL for patients with CHD or diabetic patients with > or = 2 CHD risk factors. LDL-C is now calculated using the Gabriel-Breanne calculation, which is a validated novel method providing better accuracy than the Friedewald equation in the estimation of LDL-C. Gabriel NEAL et al. DEANDRE. 2013;310(40): 8036-0750 (http://[employer] Network/faq/QTW575) CHOL/HDLC RATIO 3.5 <5.0 (calc) NON HDL CHOLESTEROL 81 <130 mg/dL (calc) factor, treating to a non-HDL-C goal of <100 mg/dL (LDL-C of <70 mg/dL) is considered a therapeutic option. For patients with diabetes plus 1 major ASCVD risk COMPREHENSIVE METABOLIC PANDolly ([facility]) (97681) Reviewed date:11/03/2024 08:28:23 AM Interpretation: Performing Lab:[facility] Rccd7288 [facility] CenterbillNew [facility] Fredi Mendoza Notes/Report: NON-FASTING; NON-FASTING; NON-FASTING; NON-FASTING; NON-FAST GLUCOSE 91 65-99 mg/dL Fasting reference interval UREA NITROGEN (BUN) 26 7-25 mg/dL CREATININE 1.44 0.70-1.28 mg/dL EGFR 52 > OR = 60 mL/min/1.73m2 BUN/CREATININE RATIO 18 6-22 (calc) SODIUM 137 135-146 mmol/L POTASSIUM 4.4 3.5-5.3 mmol/L CHLORIDE 101 98-110 mmol/L CARBON DIOXIDE 30 20-32 mmol/L CALCIUM 9.5 8.6-10.3 mg/dL PROTEIN, TOTAL 7.0 6.1-8.1 g/dL ALBUMIN 4.3 3.6-5.1 g/dL GLOBULIN 2.7 1.9-3.7 g/dL (calc) ALBUMIN/GLOBULIN RATIO 1.6 1.0-2.5 (calc) BILIRUBIN, TOTAL 0.8 0.2-1.2 mg/dL ALKALINE PHOSPHATASE 126 35-144 U/L AST 18 10-35 U/L ALT 16 9-46 U/L MAGNESIUM (622) Reviewed date:11/03/2024 08:28:23 AM Interpretation: Performing Lab:STEPHAN [facility] [place] [address], [facility] HospitalNufhYS[address] Fredi Mendoza Notes/Report: NON-FASTING; NON-FASTING; NON-FASTING; NON-FASTING; NON-FAST MAGNESIUM 2.2 1.5-2.5 mg/dL PHOSPHATE ( PHOSPHORUS) (7 18) Reviewed date:11/03/2024 08:28:23 AM Interpretation: Performing Lab:STEPHAN, [facility] [address], [facility] HospitalLgpfON[address] Fredi Mendoza Notes/Report: NON-FASTING; NON-FASTING; NON-FASTING; NON-FASTING; NON-FAST PHOSPHATE ( PHOSPHORUS) 3.6 2.1-4.3 mg/dL CBC (INCLUDES DIFF/PLT) (639 9) Reviewed date:11/03/2024 08:28:23 AM Interpretation: Performing Lab:[facility] G[address]qc[address], [facility] HospitalNblwYY[address] Fredi Mendoza Notes/Report: NON-FASTING; NON-FASTING; NON-FASTING; NON-FASTING; NON-FAST WHITE BLOOD CELL COUNT 16.6 3.8-10.8 Thousand/ uL RED BLOOD CELL COUNT 4.71 4.20-5.80 Million/uL HEMOGLOBIN 14.9 13.2-17.1 g/dL HEMATOCRIT 46.8 38.5-50.0 % MCV 99.4 80.0-100.0 fL MCH 31.6 27.0-33.0 pg MCHC 31.8 32.0-36.0 g/dL For adults, a slight decrease in the calculated MCHC value (in the range of 30 to 32 g/dL) is most likely not clinically significant; however, it should be interpreted with caution in correlation with other red cell parameters and the patient's clinical condition. RDW 14.2 11.0-15.0 % PLATELET COUNT 382 140-400 Thousand/uL MPV 11.6 7.5-12.5 fL ABSOLUTE NEUTROPHILS 6657 0671-9828 cells/uL ABSOLUTE LYMPHOCYTES 7470 850-3900 cells/uL ABSOLUTE MONOCYTES 1760 200-950 cells/uL ABSOLUTE EOSINOPHILS 515 15-500 cells/uL ABSOLUTE BASOPHILS 199 0-200 cells/uL NEUTROPHILS 40.1 LYMPHOCYTES 45.0 MONOCYTES 10.6 EOSINOPHILS 3.1 BASOPHILS 1.2 RPR (MONITOR) W/REFL TITER ( 799) Reviewed date:11/03/2024 08:28:23 AM Interpretation: Performing Lab:[facility] [address]oc[address], Yasir SmithDixkDG[address] Fredi Mendoza Notes/Report: NON-FASTING; NON-FASTING; NON-FASTING; NON-FASTING; NON-FAST RPR (MONITOR) W/REFL TITER NON-REACTIVE NON-REACTIVE HEMOGLOBIN A1c (496) Reviewed date:11/03/2024 08:28:24 AM Interpretation: Performing Lab:[facility] [address], Yasir SmithDnguGP[address] Fredi Mendoza Notes/Report: NON-FASTING; NON-FASTING; NON-FASTING; NON-FASTING; NON-FAST HEMOGLOBIN A1c 5.8 <5.7 % considerations. This assay result is consistent with an increased risk of diabetes. Currently, no consensus exists regarding use of hemoglobin A1c for diagnosis of diabetes for children. For someone without known diabetes, a hemoglobin A1c value between 5.7% and 6.4% is consistent with prediabetes and should be confirmed with a follow-up test. For someone with known diabetes, a value <7% indicates that their diabetes is well controlled. A1c targets should be individualized based on duration of diabetes, age, comorbid conditions, and other VITAMIN B12/FOLATE, SERUM PA TROY (1204) Reviewed date:11/03/2024 08:28:24 AM Interpretation: Performing Lab:[facility] [address], Yasir ManuelJtfbHB[address] Fredi Mendoza Notes/Report: NON-FASTING; NON-FASTING; NON-FASTING; NON-FASTING; NON-FAST VITAMIN B12 437 038-2235 pg/mL Please Note: Although the reference range for vitamin B12 is 200-1100 pg/mL, it has been reported that between 5 and 10% of patients with values between 200 and 400 pg/mL may experience neuropsychiatric and hematologic abnormalities due to occult B12 deficiency; less than 1% of patients with values above 400 pg/mL will have symptoms. FOLATE, SERUM 7.7 Normal: >5.4 Reference Range Low: <3.4 Borderline: 3.4-5.4 VITAMIN D,25-OH,TOTAL,IA (17 306) Reviewed date:11/03/2024 08:28:24 AM Interpretation: Performing Lab:CB, [place] [address], Yasir ManuelLedfBQ[address] Fredi Mendoza Notes/Report: NON-FASTING; NON-FASTING; NON-FASTING; NON-FASTING; NON-FAST VITAMIN D,25-OH,TOTAL,IA 47 30-100 ng/mL http://education.Appature/faq/DYK878 (This link is being provided for informational/ educational purposes only.) Vitamin D Status 25-OH Vitamin D: Deficiency: <20 ng/mL Insufficiency: 20 - 29 ng/mL Optimal: > or = 30 ng/mL For 25-OH Vitamin D testing on patients on D2-supplementation and patients for whom quantitation of D2 and D3 fractions is required, the QuestAssureD(TM) 25-OH VIT D, (D2,D3), LC/MS/MS is recommended: order code 38655 (patients >2yrs). See Note 1 Note 1 For additional information, please refer to REASON FOR VISIT 2 month follow up, elevated bp in the am., tingling in hands, not walking much, wants weight loss meds Medications Medication SIG (Take, Route, Frequency, Duration) Notes Start Date End Date Status PROAIR HFA 90 MCG/INH INHALE 2 PUFFS BY MOUTH EVERY 4 HOURS NEEDED; Duration: 50 *Please review for potential replacement for e-prescription and drug interaction check* Active Carvedilol 3.125 MG 1 tab(s) orally 2 times a day Active MiraLax - DIRECTED ORALLY ONCE A DAY prn *Please review and pick correct strength-formulati on from PeerAppspan options. If intended option is not shown, discontinue and re-order from Quick Search* Active OXYGEN CONSERVER DIRECTED DX: J44.9 DIRECTED 2L *Please review for potential replacement for e-prescription and drug interaction check* 08/09/2017 Active Vitamin B1 100 MG 1 tab(s) orally once a day; Duration: 7 day(s) Active Ciclopirox 8 % 1 application at bedtime Externally Once a day; Duration: 90 days 10/30/2024 Active CPAP MACHINE WITH ADULT SETUP *Please review for potential replacement for e-prescription and drug interaction check* Active Trelegy Ellipta 100 MCG-62.5 MCG-25 MCG/INH 1 INH INHALED ONCE A DAY *Please review and pick correct strength-formulati on from Buy buy tea options. If intended option is not shown, discontinue and re-order from Quick Search* Active Levocetirizine Dihydrochloride 5 MG 1 tab(s) orally once a day (in the evening) Active Tylenol 325 MG 2 tab(s) orally every 6 hours Active Xhance 93 MCG/ACT 2 sprays (1 spray in each nostril) Nasally Twice a day Active Vitamin D (Ergocalciferol) 1.25 MG (09463 UT) 1 cap(s) orally every 2 weeks Active Senna 8.6 MG 1 tab(s) orally once a day (at bedtime); Duration: 90 days Active Clobetasol Propionate 0.05 % 1 vasyl applied topically 2 times a day; Duration: 14 days 05/22/2024 Active Eliquis 5 MG as directed Orally Active Euthyrox 50 MCG (0.05 MG) 1 TAB(S) ORALLY ONCE A DAY; Duration: 30 DAYS *Please review and pick correct strength-formulati on from Buy buy tea options. If intended option is not shown, discontinue and re-order from Quick Search* Active Memantine HCl 10 MG 1 tab orally twice a day; Duration: 30 days Active Citalopram Hydrobromide 20 MG 1 tab(s) orally once a day; Duration: 90 days Active metOLazone 5 MG 1 tab(s) orally once a day; Duration: 30 days 05/18/2024 Active Apixaban 5 MG as directed orally 2 times a day Active Bumetanide 1 MG 2tabs orally in the morning; Duration: 30 days Active Atorvastatin Calcium 80 MG 1 tab(s) orally once a day; Duration: 30 days Active Social History Tobacco Use: Social History Observation Description Date Details (start date - stop date) Former Smoker NA - NA Smoking: Question Answer Notes Are you a: former smoker How long has it been since you last smoked? > 10 years Problems Problem Type SNOMED Code ICD Code Onset Dates Problem Status W/U Status Risk Notes Problem Paresthesia (82147389) Paresthesia (R20.2) Active confirmed Problem Ataxia (70855885) Ataxia (R27.0) Active confirm ed Problem Vitamin D deficiency (15603843) Vitamin D deficiency (E55.9) Active confirmed Problem Cerebrovascular disease (21248966) Cerebrovascular disease (I67.9) Active confirmed Vital Signs Temperature 97.1 degrees Fahrenheit 10/31/19 25 Blood pressure systolic 140 mm Hg 10/31/19 25 Blood pressure diastolic 62 mm Hg 025 Heart Rate 80 /min 10/30/2024 Height 66.5 in 10/30/2024 Weight 263 lbs 10/30/2024 BMI 41.81 kg/m2 10/30/2024 Encounters Encounter Location Date Provider Diagnosis [facility] [address] [place] [address] 10/30/2024 Maurilio Kolton Paresthesia R20.2 ; Toenail fungus B35.1 ; Encounter for weight management Z76.89 ; Other malaise R53.81 ; Other fatigue R53.83 ; Ataxia R27.0 ; Vitamin D deficiency E55.9 and Cerebrovascular disease I67.9 Assessments Encounter Date Diagnosis (ICD Code) Assessment Notes Treatment Notes Treatment Clinical Notes Section Notes 10/30/2024 Paresthesia (ICD-10 - R20.2) Given involvment of first 3 digits, highly suspiscous for median nerve entrapement. Negative Phalen's + compression test. Parasthesia start mid forearm, so possible median nerve entrapement at the elbow. Will recommend Elbow braces and check paresthesia labs today. 10/30/2024 Toenail fungus (ICD-10 - B35.1) Hesistent to start oral systemic therapy due to amount of medications, will start topical ciclopirox and then can consider terbinifine if no improvement. 10/30/2024 Encounter for weight management (ICD-10 - Z76.89) Will repeat A1c today and then consider starting GLP-1 if A1c elevated. 10/30/2024 Other malaise (ICD-10 - R53.81) 10/30/2024 Other fatigue (ICD-10 - R53.83) 10/30/2024 Ataxia (ICD-10 - R27.0) 10/30/2024 Vitamin D deficiency (ICD-10 - E55.9) 10/30/2024 Cerebrovascular disease (ICD-10 - I67.9) Plan Of Treatment Medication Medication Name Sig Start Date Stop Date Notes Ciclopirox 8 % 1 application at bed time Externally Once a day; Duration: 90 days 10/30/2024 Treatment Notes Assessment Notes Paresthesia Given involvment of first 3 digits, highly suspiscous for median nerve entrapement. Negative Phalen's + compression test. Parasthesia start mid forearm, so possible median nerve entrapement at the elbow. Will recommend Elbow braces and check paresthesia labs today. Toenail fungus Hesistent to start o ral systemic therapy due to amount of medications, will start topical ciclopirox and then can consider terbinifine if no improvement. Encounter for weight management Will rep eat A1c today and then consider starting GLP-1 if A1c elevated. Next Appt Details Follow Up: prn,2 Months, [place] son: Provider Name:Maurilio Hi, 01/01/2025 12:30:00 PM, [address] [facility] [address] [facility], [address], [place], [address], Progress Notes * Reji WELLERDOB: [birth year] (74 yo M)Acc No.[id number]:10/30/2024 Progress Notes Patient: Reji CUADRA Provider: Abdiaziz Hi MD :1950 A ge:74 Y S ex:Male Date:10/30/2024 [address] [id number] Subjective: * Chief Complaints: * 1 . 2 month follow up, elevated bp in the am.. 2. Tingling in hands. 3. Not walking much. 4. Wants weight loss meds. * HPI: g en: Arms and shoulders are really hurting, tingling in first 3 digits in both hands to mid wrist. No weakness, hurts all day long, even at night. He is going to pain center tomorrow. Hes going to get an epidural. (-) philen test. Has been wearing braces which has helped symptoms. Blood pressure has been elevated at home. SBP in 130s-140s.Usually before he takes his medications. Needs some teeth pulled. * Medical History: P ulmonary Embolism, blood clot LLE, HTN, Old cerebellar infarct seen on CT, Memory loss since PE, Chronic back and knee pain on Percocet, MSO4 and gabapentin per Dr Jhonathan Howard, Sleep apnea on CPAP - equipment through [facility], left heart catheter November 2017 with 20-30% [...] failure, lack of oxygen 02/2016, Lt leg surgery- 02/2024, [place] 03/2024. * Family History: [...] , Taking Vitamin D (Ergocalciferol) 1.25 MG (89406 UT) Capsule 1 cap(s) orally every 2 weeks , Taking CPAP MACHINE WITH ADULT SETUP , Notes to Pharmacist: *Please review for potential replacement for e-prescription and drug interaction check*, Taking Trelegy Ellipta 100 MCG-62.5 MCG-25 MCG/INH POWDER 1 INH INHALED ONCE A DAY , Notes to Pharmacist: *Please review and pick correct strength-formulation from Buy buy tea options. If intended option is not shown, [...] *Please review and pick correct strength-formulation from Buy buy tea options. If intended option is not shown, [...] *Please review and pick correct strength-formulation from Buy buy tea options. If intended option is not shown, [...] Vitals: N urse: be, Pain: 6, Temp: 97.1, RR: 20, HR: 80, BP: 140/62, Ht: 66.5, Wt: 263, BMI:41.81. * Examination: G eneral Examination: General P leasant and Cooperative, NAD on RA,. Heart: C rescendo-Descrendo systolic Murmur best heard at the RUSB, does not radiate to the carotids.. Lungs: L CTAB, No wheezes, crackles or rhonchi, Good air movement,. Abdomen: S oft, NTND, BSNA, No organomegaly or peritoneal signs.. Extremities: N egative Phalen's sign, negative carpal tunnel compression test. Assessment: * Assessment: 1. P aresthesia - R20.2 (Primary) 2 . T oenail fungus - B35.1 ?3. E ncounter for weight management - Z76.89 4 . O ther malaise - R53.81? 5. O ther fatigue - R53.83 6 . A taxia - R27.0 7. V itamin D deficiency - E55.9 8 . C erebrovascular disease - I67.9? Plan: * Treatment: Value Reference Range T 3 UPTAKE 27 22-35 - % * T 4 (THYROXINE), TOTAL 5.4 4.9-10.5 - mcg/dL * F REE T4 INDEX (T7) 1.5 1.4-3.8 - * T SH 6.90 H 0.40-4.50 - mIU/L * Soni Salas 11/03/2024 08: 27:56 AM EDT > Zuly Raya lab was reviewed by Soni Salas on 11/03/2024 at 08:28 AM EDT ?LAB: LIPID PANEL, STANDARD (1550)* Value Reference Range T RIGLYCERIDES 158 H <150 - mg/dL * C HOLESTEROL, TOTAL 113 <200 - mg/dL * H DL CHOLESTEROL 32 L > OR = 40 - mg/dL * L DL-CHOLESTEROL 57 - mg/dL (calc) * C HOL/HDLC RATIO 3.5 <5.0 - (calc) * N ON HDL CHOLESTEROL 81 <130 - mg/dL (calc) * Soni Salas 11/03/2024 08: 27:56 AM EDT > Zuly Raya lab was reviewed by Soni Salas on 11/03/2024 at 08:28 AM EDT ?LAB: COMPREHENSIVE METABOLIC PANEL (REFL) (11928)* Value Reference Range G LUCOSE 91 65-99 - mg/dL * U JADE NITROGEN (BUN) 26 H 7-25 - mg/dL * C REATININE 1.44 H 0.70-1.28 - mg/dL * B UN/CREATININE RATIO 18 6-22 - (calc) * S ODIUM 137 135-146 - mmol/L * P OTASSIUM 4.4 3.5-5.3 - mmol/L * C HLORIDE 101 98-110 - mmol/L * C ARBON DIOXIDE 30 20-32 - mmol/L * C ALCIUM 9.5 8.6-10.3 - mg/dL * P ROTEIN, TOTAL 7.0 6.1-8.1 - g/dL * A LBUMIN 4.3 3.6-5.1 - g/dL * G LOBULIN 2.7 1.9-3.7 - g/dL (calc ) * A LBUMIN/GLOBULIN RATIO 1.6 1.0-2.5 - (calc) * B ILIRUBIN, TOTAL 0.8 0.2-1.2 - mg/dL * A LKALINE PHOSPHATASE 126 35-144 - U/L * A ST 18 10-35 - U/L * A LT 16 9-46 - U/L * E GFR 52 L > OR = 60 - mL/min/1 .73m2 * Soni Salas 11/03/2024 08: 27:56 AM EDT > Zuly Raya lab was reviewed by Soni Salas on 11/03/2024 at 08:28 AM EDT ?LAB: MAGNESIUM (622)* Value Reference Range M AGNESIUM 2.2 1.5-2.5 - mg/dL * Soni Salas 11/03/2024 08: 27:56 AM EDT > Zuly informedThis lab was reviewed by Soni Salas on 11/03/2024 at 08:28 AM EDT ?LAB: PHOSPHATE ( PHOSPHORUS) (718)* Value Reference Range P HOSPHATE ( PHOSPHORUS) 3.6 2.1-4.3 - mg/dL * Soni Salas 11/03/2024 08: 27:56 AM EDT > Zuly informedThis lab was reviewed by Soni Salas on 11/03/2024 at 08:28 AM EDT ?LAB: CBC (INCLUDES DIFF/PLT) (4298)* Value Reference Range W EVE BLOOD CELL COUNT 16.6 H 3.8-10.8 - Thousan d/uL * R ED BLOOD CELL COUNT 4.71 4.20-5.80 - Million/ uL * H EMOGLOBIN 14.9 13.2-17.1 - g/dL * H EMATOCRIT 46.8 38.5-50.0 - % * M CV 99.4 80.0-100.0 - fL * M CH 31.6 27.0-33.0 - pg * M CHC 31.8 L 32.0-36.0 - g/dL * R DW 14.2 11.0-15.0 - % * P LATELET COUNT 382 140-400 - Thousand/u L * N EUTROPHILS 40.1 - % * A BSOLUTE NEUTROPHILS 6657 6073-4748 - cells/uL * L YMPHOCYTES 45.0 - % * A BSOLUTE LYMPHOCYTES 7470 H 850-3900 - cells/uL * M ONOCYTES 10.6 - % * A BSOLUTE MONOCYTES 1760 H 200-950 - cells/uL * E OSINOPHILS 3.1 - % * A BSOLUTE EOSINOPHILS 515 H 15-500 - cells/uL * B ASOPHILS 1.2 - % * A BSOLUTE BASOPHILS 199 0-200 - cells/uL * M PV 11.6 7.5-12.5 - fL * Soni Salas 11/03/2024 08: 27:56 AM EDT > Zuly informedThis lab was reviewed by Soni Salas on 11/03/2024 at 08:28 AM EDT ?LAB: RPR (MONITOR) W/REFL TITER (799)* Value Reference Range R ND (MONITOR) NON-REACTIVE NON-REACTIVE - * Soni Salas 11/03/2024 08: 27:56 AM EDT > Zuly mcdanielsJustin lab was reviewed by Soni Salas on 11/03/2024 at 08:28 AM EDT ?LAB: HEMOGLOBIN A1c (496)* Value Reference Range H EMOGLOBIN A1c 5.8 H <5.7 - % * Soni Salas 11/03/2024 08: 27:56 AM EDT > Zuly arslanJustin lab was reviewed by Soni Salas on 11/03/2024 at 08:28 AM EDT ?LAB: VITAMIN B12/FOLATE, SERUM PANEL (7065)* Value Reference Range F OLATE, SERUM 7.7 - ng/mL * V ITAMIN B12 464 213-4349 - pg/mL * Soni Salas 11/03/2024 08: 27:56 AM EDT > Zuly arslanJustin lab was reviewed by Soni Salas on 11/03/2024 at 08:28 AM EDT ?LAB: VITAMIN D,25-OH,TOTAL,IA (99248)* Value Reference Range V ITAMIN D,25-OH,TOTAL,IA 47 30-100 - ng/mL * Soni Salas 11/03/2024 08: 27:56 AM EDT > Zuly mcdanielsMashas lab was reviewed by Soni Salas on 11/03/2024 at 08:28 AM EDT Notes: Given involvment of first 3 digits, highly suspiscous for median nerve entrapement. NegativePhalen's + compression test. Parasthesia start mid forearm, so possible median nerve entrapement atthe elbow. Will recommend Elbow braces and check paresthesia labs today. ??2.?Toenail fungus? Start Ciclopirox Kit, 8 %, 1 application at bedtime, Externally, Once a day, 90 days, 3, Refills 3. ? Notes: Hesistent to start oral systemic therapy due to amount of medications, will start topical ciclopirox and then can consider terbinifine if no improvement. ??3.?Encounter for weight management?LAB: THYROID PANEL WITH TSH (7444)* Value Reference Range T 3 UPTAKE 27 22-35 - % * T 4 (THYROXINE), TOTAL 5.4 4.9-10.5 - mcg/dL * F REE T4 INDEX (T7) 1.5 1.4-3.8 - * T SH 6.90 H 0.40-4.50 - mIU/L * Soni Salas 11/03/2024 08: 27:56 AM EDT > Zuly Raya lab was reviewed by Soni Salas on 11/03/2024 at 08:28 AM EDT ?LAB: LIPID PANEL, STANDARD (5790)* Value Reference Range T RIGLYCERIDES 158 H <150 - mg/dL * C HOLESTEROL, TOTAL 113 <200 - mg/dL * H DL CHOLESTEROL 32 L > OR = 40 - mg/dL * L DL-CHOLESTEROL 57 - mg/dL (calc) * C HOL/HDLC RATIO 3.5 <5.0 - (calc) * N ON HDL CHOLESTEROL 81 <130 - mg/dL (calc) * Soni Salas 11/03/2024 08: 27:56 AM EDT > Zuly Raya lab was reviewed by Soni Salas on 11/03/2024 at 08:28 AM EDT ?LAB: COMPREHENSIVE METABOLIC PANEL (REFL) (23397)* Value Reference Range G LUCOSE 91 65-99 - mg/dL * U JADE NITROGEN (BUN) 26 H 7-25 - mg/dL * C REATININE 1.44 H 0.70-1.28 - mg/dL * B UN/CREATININE RATIO 18 6-22 - (calc) * S ODIUM 137 135-146 - mmol/L * P OTASSIUM 4.4 3.5-5.3 - mmol/L * C HLORIDE 101 98-110 - mmol/L * C ARBON DIOXIDE 30 20-32 - mmol/L * C ALCIUM 9.5 8.6-10.3 - mg/dL * P ROTEIN, TOTAL 7.0 6.1-8.1 - g/dL * A LBUMIN 4.3 3.6-5.1 - g/dL * G LOBULIN 2.7 1.9-3.7 - g/dL (calc ) * A LBUMIN/GLOBULIN RATIO 1.6 1.0-2.5 - (calc) * B ILIRUBIN, TOTAL 0.8 0.2-1.2 - mg/dL * A LKALINE PHOSPHATASE 126 35-144 - U/L * A ST 18 10-35 - U/L * A LT 16 9-46 - U/L * E GFR 52 L > OR = 60 - mL/min/1 .73m2 * Soni Salas 11/03/2024 08: 27:56 AM EDT > Zuly informedThis lab was reviewed by Soni Salas on 11/03/2024 at 08:28 AM EDT ?LAB: MAGNESIUM (622)* Value Reference Range M AGNESIUM 2.2 1.5-2.5 - mg/dL * Soni Salas 11/03/2024 08: 27:56 AM EDT > Zuly informedThis lab was reviewed by Soni Salas on 11/03/2024 at 08:28 AM EDT ?LAB: PHOSPHATE ( PHOSPHORUS) (718)* Value Reference Range P HOSPHATE ( PHOSPHORUS) 3.6 2.1-4.3 - mg/dL * Soni Salas 11/03/2024 08: 27:56 AM EDT > Zuly informedThis lab was reviewed by Soni Salas on 11/03/2024 at 08:28 AM EDT ?LAB: CBC (INCLUDES DIFF/PLT) (5952)* Value Reference Range W EVE BLOOD CELL COUNT 16.6 H 3.8-10.8 - Thousan d/uL * R ED BLOOD CELL COUNT 4.71 4.20-5.80 - Million/ uL * H EMOGLOBIN 14.9 13.2-17.1 - g/dL * H EMATOCRIT 46.8 38.5-50.0 - % * M CV 99.4 80.0-100.0 - fL * M CH 31.6 27.0-33.0 - pg * M CHC 31.8 L 32.0-36.0 - g/dL * R DW 14.2 11.0-15.0 - % * P LATELET COUNT 382 140-400 - Thousand/u L * N EUTROPHILS 40.1 - % * A BSOLUTE NEUTROPHILS 6657 9253-2615 - cells/uL * L YMPHOCYTES 45.0 - % * A BSOLUTE LYMPHOCYTES 7470 H 850-3900 - cells/uL * M ONOCYTES 10.6 - % * A BSOLUTE MONOCYTES 1760 H 200-950 - cells/uL * E OSINOPHILS 3.1 - % * A BSOLUTE EOSINOPHILS 515 H 15-500 - cells/uL * B ASOPHILS 1.2 - % * A BSOLUTE BASOPHILS 199 0-200 - cells/uL * M PV 11.6 7.5-12.5 - fL * Soni Salas 11/03/2024 08: 27:56 AM EDT > [facility] lab was reviewed by Soni Salas on 11/03/2024 at 08:28 AM EDT ?LAB: RPR (MONITOR) W/REFL TITER (799)* Value Reference Range R ND (MONITOR) NON-REACTIVE NON-REACTIVE - * Soni Salas 11/03/2024 08: 27:56 AM EDT > [facility] lab was reviewed by Soni Salas on 11/03/2024 at 08:28 AM EDT ?LAB: HEMOGLOBIN A1c (496)* Value Reference Range H EMOGLOBIN A1c 5.8 H <5.7 - % * Soni Salas 11/03/2024 08: 27:56 AM EDT > [facility] lab was reviewed by Soni Salas on 11/03/2024 at 08:28 AM EDT Notes: Will repeat A1c today and then consider starting GLP-1 if A1c elevated. ?? * Procedure Codes: G 2211 Complex e/m visit add on * Follow Up: p rn,2 Months * * Sign off status: Completed true * Provider: Abdiaziz Hi MD Date: 0 10/30/2024 Generated for Printi ng/Faxing/eTransmitting on: 0 12/13/2024 04:40 PM EDT History and Physical Notes * HPI (History of Present Illness) Category Sub-Category Detail Notes Category Not es gen Arms and shoulders are really hurting, tingling in first 3 digits in both hands to mid wrist. No weakness, hurts all day long, even at night. He is going to pain center tomorrow. Hes going to get an epidural. (-) philen test. Has been wearing braces which has helped symptoms. Blood pressure has been elevated at home. SBP in 130s-140s.Usually before he takes his medications. Needs some teeth pulled. Examination Category Sub-Category Detail Notes Category Not es General Examination Heart: Crescendo-De screndo systolic Murmur best heard at the RUSB, does not radiate to the carotids. Lungs: LCTAB, No wheezes, c rackles or rhonchi, Good air movement, Abdomen: Soft, NTND, BSNA, No organomegaly or peritoneal signs. Extremities: Negative Phalen's si gn, negative carpal tunnel compression test General [place] and [place] tive, NAD on RA,
--- OUTSIDE RECORDS SUMMARY | 2024-12-08 10:00 | XMS_ITS ---
Author Organization [facility] Address [address] [facility] [address] [place], [place] [address] Care Team Providers Care Acquisition Manager Name Role Phone Maurilio Hi Primary Care Provider REASON FOR VISIT Tingling in hands, sore thumbs, swollen Encounters Encounter Location Date Provider Diagnosis [facility] [address] [place], [place] [address] 12/08/2024 Maurilio Hi Plan Of Treatment Next Appt Details Provider Name:Maurilio Hi, 01/01/2025 12:30:00 PM, [address], [address], [place], [place], [address], Progress Notes * Reji WELLER CeciliaDOB: [birth year] (74 yo M)Acc No.[id number]:12/08/2024 Progress Notes Patient: Reji CUADRA Provider: Abdiaziz Hi MD :1950 A ge:74 Y S ex:Male Date:12/08/2024 Address:[address] [id number] Subjective: * Chief Complaints: * 1 . Tingling in hands, sore thumbs, swollen. * Medical History: Objective: * Vitals: Assessment: Plan: * Treatment: * * Electronic signature of Robert Hi MD FAAP on 12/13/2024 at 04:40 PM EDT Sign off status: Pending * Provider: Abdiaziz Hi MD Date: 12/08/2024 Generated for Tierney abad/Lisa/Kenyatta on: 12/13/2024 04:40 PM EDT
[2024-12-13 16:28] VITALS: BP 146/87; PULSE 87; RESP 16; TEMP 36.8; O2SAT 96; BMI 40.3
--- OUTSIDE RECORDS SUMMARY | 2024-12-13 16:41 | XMS_ITS | Clinical Summary ---
Author Organization [facility] Address [address] [place] [address] Care Team Providers Care Lead Network Engineer Name Role Phone Lidya Douglas Primary Care Provider [phone] Allergies No known active allergies Medications albuterol (PROVENTIL HFA;VENTOLIN HFA) 108 (90 BASE) MCG/ACT inhaler Inhale 2 puffs Every 4 (Four) Hours As Needed for Wheezing. Active Ergocalciferol (VITAMIN D2 PO) Take 1.25 mg by mouth Every 14 (Fourteen) Days. Next dose due 02/29/24 Active thiamine (VITAMIN B1) 100 MG tablet Take 1 tablet by mouth Daily. 6 Active citalopram (CeleXA) 20 MG tablet Take 1 tablet by mouth Daily. Active Memantine HCl-Donepezil HCl (NAMZARIC PO) Take 10 mg by mouth 2 (Two) Times a Day. Active Enoxaparin Sodium (LOVENOX) 120 MG/0.8ML solution prefilled syringe syringe Inject 0.8 mL under the skin into the appropriate area as directed Every 12 (Twelve) Hours. To Start on 03/01/24 in preparation for shoulder surgery Active Fluticasone-Ume clidin-Vilant (Trelegy Ellipta) 100-62.5-25 MCG/ACT inhaler Inhale 1 puff Daily. Active azelastine (ASTELIN) 0.1 % nasal spray Administer 2 sprays into the nostril(s) as directed by provider 2 (Two) Times a Day. Use in each nostril as directed Active empagliflozin (Jardiance) 10 MG tablet tablet Take 1 tablet by mouth Daily. Active levocetirizine (XYZAL) 5 MG tablet Take 1 tablet by mouth Every Evening. Active atorvastatin (LIPITOR) 80 MG tablet Take 1 tablet by mouth Daily. Active nystatin (MYCOSTATIN) 440846 UNIT/GM ointment Apply 1 Application topically to the appropriate area as directed 2 (Two) Times a Day As Needed (jose r area). Active levothyroxine (SYNTHROID, LEVOTHROID) 50 MCG tablet Take 1 tablet by mouth Daily. Active bumetanide (BUMEX) 2 MG tablet Take 1 tablet by mouth Daily. Active carvedilol (COREG) 3.125 MG tablet Take 1 tablet by mouth 2 (Two) Times a Day With Meals. Active warfarin (COUMADIN) 5 MG tablet Take by mouth Daily. Patient instructed to start holding 02/29/24 prior to shoulder surgery Dose adjustments prn 7.5mg Wednesday's and Wednesday's 5mg on the other days Active Active Problems Problem Noted Date Diagnosed Date Chronic obstructive pulmonar y disease with acute exacerbation 05/06/2016 Pulmonary embolism with acute cor pulmonale 07/2015 Acute respiratory failure with hypoxia 6 R/O Left LE DVT 02/24/2016 Alcohol dependence, binge pattern 02/24/2016 Altered mental status 02/24/2016 Recent total left knee replacement 02/24/2016 Prior total left knee replacement 02/24/2016 Obesity 02/24/2016 ISAAC (On nasal CPAP) 02/24/2016 Family History Relation Name Status Comments Father Mother Social History Tobacco Use Types Packs/Day Years Used Date Smoking Tobacco: Former Cigarettes 0.5 22 1 974 - 1996 Smokeless Tobacco: Never Tobacco Cessation:Counseling Given: Not Answered Alcohol Use Standard Drinks/Week Comments Yes 0 (1 standard drink = 0.6 oz pure alcohol) 4oz joanne x 2 daily except Wednesday's Abuse Screen Answer Date Recorded Feels Unsafe at Home or Work/School no 02/22/2024 Feels Threatened by Someone no 05/2023 Does Anyone Try to Keep You From Having Contact with Others or Doing Things Outside Your Home? no 02/22/2024 Physical Signs of Abuse Present no 02/22/2024 Education Answer Date Recorded Help with school or training? Not on file Preferred Language [place] 02/22/2024 Sex and Gender Information Value Date Recorded Sex Assigned at Not on file Legal Sex Male 11:29 AM EDT Gender Identity Not on file Sexual Orientation Not on file Last Filed Vital Signs Vital Sign Reading Time Taken Comments Blood Pressure 136/74 05/06/2016 10:32 AM EST Pulse 65 05/06/2016 10:32 AM EST Temperature 36.9 C (98.5 F) 03/02/2016 5:20 AM EST Respiratory Rate 18 03/02/2016 5:20 AM EST Oxygen Saturation 81% 05/06/2016 10:32 AM EST Inhaled Oxygen Concentration - - Weight 118 kg (261 lb 3.9 oz) 02/22/2024 3:01 PM EST Height 172.7 cm (5' 8 ) 02/22/2024 3:01 PM EST Body Mass Index 39.72 02/22/2024 3:01 PM EST Plan of Treatment Health Maintenance Due Date Last Done Comments COLOGUARD 1997 COLON CANCER SCREENING 5 YEA R SIGMOIDOSCOPY 1997 CT COLONOGRAPHY 1997 FECAL OCCULT BLOOD TEST 1997 FIT Testing (1 year) 1997 ANNUAL WELLNESS VISIT 02/21/2024 HEPATITIS C SCREENING 02/21/2024 INFLUENZA VACCINE 10/20/2024 12/31/2022, , 01/05/2020, Additional history exists COVID-19 Vaccine (2024-04 6 season) 2024 02/18/2021, 07/03/2020, 06/05/2020 COLONOSCOPY 03/22/2027 03/22/2017 COLORECTAL CANCER SCREENING 03/22/2027 TDAP/TD VACCINES (2 - Td or Tdap) 03/18/2030 020 Pneumococcal Vaccine 50+ Completed 019, 12/08/2017, 12/04/2016 ZOSTER VACCINE Completed 05/17/2020, 02/20, 12/02/2016 AAA SCREEN ONCE Completed 03/16/2024 Insurance 2023 [place] [address] [employer] NON PAR MEDICARE A & B Member Subscriber Plan / Payer (Ef fective 2017-Present) Name:Reji Carrillo Member ID:[id number] Relation to Subscriber:Self Name:Reji Carrillo Subscriber ID:[id number] Payer ID:[id number] Group ID:Not on file Type:Not on file Address: [address] [place] [id number] [facility] Care Teams Lead Network Engineer Relationship Specialty Start Date End Date Lidya Douglas PA [address] [place] [id number] PCP - General Physician 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
--- OUTSIDE RECORDS SUMMARY | 2024-12-13 16:41 | XMS_ITS | Patient Health Record ---
Author Organization [facility] Address [address] [place] [address] Care Team Providers Care Spark Tester Name Role Phone Maurilio Hi Primary Care Provider Migration, Provider Unavailable Unavailable Allergies No Known Allergies Results Component Value Reference Range Notes BASIC METABOLIC PANEL (28473 ) Reviewed date:08/11/2024 12:39:58 PM Interpretation: Performing Lab:STEPHAN, [facility] [id number] [employer] [employer], PoikosVhmpOL[address] Fredi Mendoza Notes/Report: NON-FASTING GLUCOSE 96 65-99 [...] Reviewed date:05/24/2024 11:17:01 AM Interpretation: Performing Lab:CB, [facility] [id number], [employer] co.LtorOP[address] Fredi Mendoza Notes/Report: NON-FASTING; NON-FASTING; NON-FASTING; NON-FASTING; NON-FAST T3 UPTAKE 27 22-35 % T4 (THYROXINE), TOTAL 6.6 4.9-10.5 mcg/dL FREE T4 INDEX (T7) 1.8 1.4-3.8 TSH 1.94 0.40-4.50 mIU/L COMPREHENSIVE METABOLIC PANE L (61888) Reviewed date:05/24/2024 11:17:01 AM Interpretation: Performing Lab:STEPHAN [email or web address] [employer], [facility] HospitalEtwsPC[address] Fredi Mendoza Notes/Report: NON-FASTING; NON-FASTING; NON-FASTING; NON-FASTING; [...] Reviewed date:05/24/2024 11:17:01 AM Interpretation: Performing Lab:STEPHAN [email or web address] [employer], [employer] co.OzytPA[address] Fredi Mendoza Notes/Report: NON-FASTING; NON-FASTING; NON-FASTING; NON-FASTING; NON-FAST MAGNESIUM 2.1 1.5-2.5 mg/dL CBC (INCLUDES DIFF/PLT) (639 9) Reviewed date:05/24/2024 11:17:02 AM Interpretation: Performing Lab:STEPHAN [facility] [id number] [employer], [place] QyleGB[address] Fredi Mendoza Notes/Report: NON-FASTING; NON-FASTING; NON-FASTING; NON-FASTING; [...] MPV 12.0 7.5-12.5 fL ABSOLUTE NEUTROPHILS 8390 9245-5113 cells/uL ABSOLUTE LYMPHOCYTES 7489 850-3900 cells/uL ABSOLUTE MONOCYTES 1858 200-950 cells/uL ABSOLUTE EOSINOPHILS 534 15-500 cells/uL ABSOLUTE BASOPHILS 129 0-200 cells/uL NEUTROPHILS 45.6 LYMPHOCYTES 40.7 MONOCYTES 10.1 EOSINOPHILS 2.9 BASOPHILS 0.7 PROTHROMBIN TIME-INR (8847) Reviewed date:05/24/2024 11:17:02 AM Interpretation: Performing Lab:STEPHAN [employer] co.e1355 L[employer] Master, [facility] HospitalCcffER[address] Fredi Mendoza Notes/Report: NON-FASTING; NON-FASTING; NON-FASTING; NON-FASTING; NON-FAST INR 1.1 Reference Range 0.9-1.1 Moderate-intensity Warfarin Therapy 2.0-3.0 Higher-intensity Warfarin Therapy 3.0-4.0 PT 11.8 9.0-11.5 sec educational purposes only.) For additional information, please refer to http://education.Incentivyze.BiOM/faq/ECY959 (This link is being provided for informational/ VITAMIN D,25-OH,TOTAL,IA (17 306) Reviewed date:11/03/2024 08:28:24 AM Interpretation: Performing Lab:STEPHAN [facility] [address], [employer] co.IrqkHS[address] Fredi Mendoza Notes/Report: NON-FASTING; NON-FASTING; NON-FASTING; NON-FASTING; NON-FAST VITAMIN D,25-OH,TOTAL,IA 47 30-100 ng/mL http://education.BoxCast/faq/RIK865 (This link is being provided for informational/ educational purposes only.) Vitamin D Status 25-OH Vitamin D: Deficiency: <20 ng/mL Insufficiency: 20 - 29 ng/mL Optimal: > or = 30 ng/mL For 25-OH Vitamin D testing on patients on D2-supplementation and patients for whom quantitation of D2 and D3 fractions is required, the QuestAssureD(TM) 25-OH VIT D, (D2,D3), LC/MS/MS is recommended: order code 19212 (patients >2yrs). See Note 1 Note 1 For additional information, please refer to VITAMIN B12/FOLATE, SERUM PA TROY (9982) Reviewed date:11/03/2024 08:28:24 AM Interpretation: Performing Lab:STEPHAN [facility] [id number], [employer] co.AxiyOC[address] Fredi Mendoza Notes/Report: NON-FASTING; NON-FASTING; NON-FASTING; NON-FASTING; NON-FAST VITAMIN B12 753 704-6677 pg/mL Please Note: Although the reference range [...] >5.4 Reference Range Low: <3.4 Borderline: 3.4-5.4 HEMOGLOBIN A1c (496) Reviewed date:11/03/2024 08:28:24 AM Interpretation: Performing Lab:STEPHAN [facility] [address], [employer] co.QgnmIN[address] Fredi Mendoza Notes/Report: NON-FASTING; NON-FASTING; NON-FASTING; NON-FASTING; [...] of diabetes, age, comorbid conditions, and other RPR (MONITOR) W/REFL TITER ( 799) Reviewed date:11/03/2024 08:28:23 AM Interpretation: Performing Lab:STEPHAN [facility] [id number] [employer]te[employer], Yasir SmithYqnmVX[address] Fredi Mendoza Notes/Report: NON-FASTING; NON-FASTING; NON-FASTING; NON-FASTING; NON-FAST RPR (MONITOR) W/REFL TITER NON-REACTIVE NON-REACTIVE CBC (INCLUDES DIFF/PLT) (639 9) Reviewed date:11/03/2024 08:28:23 AM Interpretation: Performing Lab:STEPHAN [facility] [id number] reBouncesl [employer], Yasir ManuelSrdiKG[address] Fredi Mendoza Notes/Report: NON-FASTING; NON-FASTING; NON-FASTING; NON-FASTING; [...] MPV 11.6 7.5-12.5 fL ABSOLUTE NEUTROPHILS 6657 2847-0911 cells/uL ABSOLUTE LYMPHOCYTES 7470 850-3900 cells/uL ABSOLUTE MONOCYTES 1760 200-950 cells/uL ABSOLUTE EOSINOPHILS 515 15-500 cells/uL ABSOLUTE BASOPHILS 199 0-200 cells/uL NEUTROPHILS 40.1 LYMPHOCYTES 45.0 MONOCYTES 10.6 EOSINOPHILS 3.1 BASOPHILS 1.2 PHOSPHATE ( PHOSPHORUS) (7 18) Reviewed date:11/03/2024 08:28:23 AM Interpretation: Performing Lab:STEPHAN, [facility] [id number], [employer] co.NbufMD[address] Fredi Mendoza Notes/Report: NON-FASTING; NON-FASTING; NON-FASTING; NON-FASTING; NON-FAST PHOSPHATE ( PHOSPHORUS) 3.6 2.1-4.3 mg/dL MAGNESIUM (622) Reviewed date:11/03/2024 08:28:23 AM Interpretation: Performing Lab:STEPHAN [employer] co.e1355 [employer]tel [facility], [facility] HospitalPdkaBX[address] Fredi Mendoza Notes/Report: NON-FASTING; NON-FASTING; NON-FASTING; NON-FASTING; NON-FAST MAGNESIUM 2.2 1.5-2.5 mg/dL COMPREHENSIVE METABOLIC PANE L ([facility]) (01217) Reviewed date:11/03/2024 08:28:23 AM Interpretation: Performing Lab:STEPHAN [email or web address], [facility] HospitalPvvxWY[address] Fredi Mendoza Notes/Report: NON-FASTING; NON-FASTING; NON-FASTING; NON-FASTING; [...] 18 10-35 U/L ALT 16 9-46 U/L LIPID PANEL, STANDARD (7600) Reviewed date:11/03/2024 08:28:23 AM Interpretation: Performing Lab:STEPHAN [employer] co.e1355 [employer], [place] LlduFQ[address] Fredi Mendoza Notes/Report: NON-FASTING; NON-FASTING; NON-FASTING; NON-FASTING; NON-FAST CHOLESTEROL, TOTAL 113 <200 mg/dL HDL CHOLESTEROL 32 > OR = 40 mg/dL TRIGLYCERIDES 158 <150 mg/dL LDL-CHOLESTEROL 57 Reference range: <100 Desirable range <100 mg/dL for primary prevention; <70 mg/dL for patients with CHD or diabetic patients with > or = 2 CHD risk factors. LDL-C is now calculated using the Gabriel-Raymundo calculation, which is a validated novel method providing better accuracy than the Friedewald equation in the estimation of LDL-C. Gabriel SS et al. DEANDRE. 2013;310(19): 0890-9128 (http://education.Groupsite.com/faq/RSZ871) CHOL/HDLC RATIO 3.5 <5.0 (calc) NON HDL CHOLESTEROL 81 <130 mg/dL (calc) factor, treating to a non-HDL-C goal of <100 mg/dL (LDL-C of <70 mg/dL) is considered a therapeutic option. For patients with diabetes plus 1 major ASCVD risk THYROID PANEL WITH TSH (7644 ) Reviewed date:11/03/2024 08:28:23 AM Interpretation: Performing Lab:STEPHAN [email or web address] [employer], [place] JbdqEP[address] Fredi Mendoza Notes/Report: NON-FASTING; NON-FASTING; NON-FASTING; NON-FASTING; NON-FAST T3 UPTAKE 27 22-35 % T4 (THYROXINE), TOTAL 5.4 4.9-10.5 mcg/dL FREE T4 INDEX (T7) 1.5 1.4-3.8 TSH 6.90 0.40-4.50 mIU/L Reason For Referral Reason Patient is having CT scan on Wednesday at [facility], see if they can do abdominal ultrasound on Wednesday morning Diagnosis 1 Right sided abdomina l pain (R10.9) Referral Organization [facility] Referring Provider First Name Maurilio Referring Provider Last Name Kolton Referring Provider Speciality Internal edicine General Notes Jaime Powell 09/2024 10:11:51 AM > faxed to [facility] and they will add if they can Referral Priority Urgent Reason New PT - Denominational? See if they can pick him up Diagnosis 1 Age-related physical debility (R54) Referral Organization [facility] Referring Provider First Name Maurilio Referring Provider Last Name Kolton Referring Provider Speciality Internal edicine Referred Provider Specialty [facility] General Notes Iwona Flores 2024 04:15:51 PM >sent to [facility] Referral Priority Routine Reason Dr. Mendoza Currently being d/c from [facility] physical therapy but pain is still an 10/29. Please eval Diagnosis 1 Back pain (M54.9) Referral Organization [facility] Referring Provider First Name Maurilio Referring Provider Last Name Kolton Referring Provider Speciality Internal edicine Referred Organization [facility] Referred Address [address] [place] [address], [place], [place],[address], Referred Provider Specialty Pain Managem ent General Notes Iwona Flores 2024 12:48:34 PM >Sent to Dr. Mendoza Referral Priority Routine Medications Medication SIG (Take, Route, Frequency, Duration) Notes Start Date End Date Status Vitamin D (Ergocalciferol) 1.25 MG (21097 UT) 1 cap(s) orally every 2 weeks; Duration: 30 days Active PROAIR HFA 90 MCG/INH INHALE 2 PUFFS BY MOUTH EVERY 4 HOURS NEEDED; Duration: 50 *Please review for potential replacement for e-prescription and drug interaction check* Active Ciclopirox 8 % 1 application at bedtime Externally Once a day; Duration: 90 days 10/30/2024 Active Xhance 93 MCG/ACT 2 sprays (1 spray in each nostril) Nasally Twice a day Active Bumetanide 1 MG 2tabs orally in the morning; Duration: 30 days Active Euthyrox 75 MCG 1 tab Orally Once a day; Duration: 90 days Active Atorvastatin Calcium 80 MG 1 tab(s) orally once a day; Duration: 30 days Active CPAP MACHINE WITH ADULT SETUP *Please review for potential replacement for e-prescription and drug interaction check* Active Trelegy Ellipta 100 MCG-62.5 MCG-25 MCG/INH 1 INH INHALED ONCE A DAY *Please review and pick correct strength-formulati on from TVTY options. If intended option is not shown, discontinue and re-order from Quick Search* Active Memantine HCl 10 MG 1 tab orally twice a day; Duration: 30 days Active Levocetirizine Dihydrochloride 5 MG 1 tab(s) orally once a day (in the evening) Active Citalopram Hydrobromide 20 MG 1 tab(s) orally once a day; Duration: 90 days Active Tylenol 325 MG 2 tab(s) orally every 6 hours Active metOLazone 5 MG 1 tab(s) orally once a day; Duration: 30 days 05/18/2024 Active Carvedilol 3.125 MG 1 tab(s) orally 2 times a day Active Apixaban 5 MG as directed orally 2 times a day Active MiraLax - DIRECTED ORALLY ONCE A DAY prn *Please review and pick correct strength-formulati on from TVTY options. If intended option is not shown, discontinue and re-order from Quick Search* Active Senna 8.6 MG 1 tab(s) orally once a day (at bedtime); Duration: 90 days Active OXYGEN CONSERVER DIRECTED DX: J44.9 DIRECTED 2L *Please review for potential replacement for e-prescription and drug interaction check* 08/09/2017 Active Clobetasol Propionate 0.05 % 1 vasyl applied topically 2 times a day; Duration: 14 days 05/22/2024 Active Vitamin B1 100 MG 1 tab(s) orally once a day; Duration: 7 day(s) Active Eliquis 5 MG as directed Orally Active Immunizations Vaccine Route Administration Date Status [...] Notes Problem Vascular dementia without behavioral disturbance (11945810190713918 ) Vascular dementia 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) Active confirmed Problem Chronic pain (65615905) Other chronic pain (G89.29) Active confirmed Problem Chronic kidney disease due to hypertension (688324687327827) Hypertensive chronic kidney disease with stage 1 through stage 4 chronic kidney disease, or unspecified chronic kidney disease (I12.9) Active confirmed Problem Seasonal allergic rhinitis (962714490) Other seasonal allergic rhinitis (J30.2) Active confirmed Problem Allergic rhinitis (53173468) Other allergic rhinitis (J30.89) Active confirmed Problem Sciatica (77179697) Lumbago with sciatica, unspecified side (M54.40) Active confirmed Problem Sciatica (78317836) Lumbago with sciatica, left side (M54.42) Active confirmed Problem Frailty (finding) (669049803) Age-related physical debility (R54) Active confirmed Problem Mixed anxiety and depressive disorder (402553970) Depression with anxiety (F41.8) Active confirmed Problem Paresthesia (37307590) Paresthesia (R20.2) Active confirmed Problem Vitamin D deficiency (59023641) Vitamin D deficiency (E55.9) Active confirmed Problem Cerebrovascular disease (27424711) Cerebrovascular disease (I67.9) Active confirmed Problem Hyperlipidemia (60826488) Hyperlipidemia (E78.5) Active confirmed Problem Essential hypertension (84062332) Essential hypertension (I10) Active confirmed Problem Erectile dysfunction (disorder) (098493011) Erectile dysfunction, unspecified erectile dysfunction type (N52.9) Active confirmed Problem COPD - Chronic obstructive pulmonary disease (81336849) Chronic obstructive pulmonary disease, unspecified COPD type (J44.9) Active confirmed Problem Acquired hypothyroidism (331330398) Acquired hypothyroidism (E03.9) Active confirmed Problem Non-rheumatic mitral regurgitation (634493503) Non-rheumatic mitral regurgitation (I34.0) Active confirmed Problem Ataxia (66014793) Ataxia (R27.0) Active confirm ed Problem Chronic pulmonary embolism (781777818975704) Other chronic pulmonary embolism (I27.82) Active confirmed Problem Dysthymia (85128120) Dysthymia (F34.1) Active confirmed Problem Tricuspid valve disorder, non-rheumatic (641059230) Non-rheumatic tricuspid valve insufficiency (I36.1) Active confirmed Problem Obstructive sleep apnea syndrome (31830757) ISAAC (obstructive sleep apnea) (G47.33) Active confirmed Problem Atherosclerotic heart disease of [place] coronary artery without angina pectoris (894793744540736) Atherosclerotic heart disease (I25.10) Active confirmed Problem Dry eyes (455428091) Dry eyes (H04.123) Active confirmed Problem Multi-infarct dementia, uncomplicated (03428820) Multi-infarct dementia, 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) Active confirmed Problem Left ventricular diastolic dysfunction (373962149) Diastolic CHF with preserved left ventricular function, NYHA class 2 (I50.30) Active confirmed Problem Aortic stenosis, non-rheumatic (397986078) Nonrheumatic aortic valve stenosis (I35.0) Active confirmed Problem History of cerebrovascular accident without residual deficits (756197162) History of CVA (cerebrovascular accident) (Z86.73) Active confirmed Problem Chronic diastolic heart failure (839208202) CHF NYHA class II, chronic, diastolic (I50.32) Active confirmed Problem Mild cognitive disorder (497028068) Mild cognitive impairment with memory loss (G31.84) Active confirmed Problem Mild major depression, single episode (94901735) Mild single current episode of major depressive disorder (F32.0) Active confirmed Problem Leukocytosis (376817302) Leukocytosis, unspecified type (D72.829) Active confirmed Problem Acute exacerbation of chronic obstructive airways disease (092579911) Acute exacerbation of chronic obstructive pulmonary disease (COPD) (J44.1) Active confirmed Problem Other acute pulmonary embolism with acute cor pulmonale (I26.09) Active confirmed Problem Chronic renal failure syndrome (60891548) Chronic kidney disease, unspecified CKD stage (N18.9) Active confirmed Problem Myocardial infarction due to demand ischemia (disorder) (95103017042158335 ) Myocardial infarction type 2 (I21.A1) Active confirmed Problem Thyroid enlargement (6865358) Thyroid enlargement (E04.9) Active confirmed Problem Laboratory test result abnormal (979441850) Abnormal laboratory test result (R89.9) Active confirmed Problem Hypertensive heart failure (44944369) Hypertensive heart disease with congestive heart failure, unspecified heart failure type (I11.0) Active confirmed Vital Signs Heart Rate 80 /min 10/30/2024 Temperature 97.1 degrees Fahrenheit 10/30/2024 Oximetry 93 05/22/2024 93% RA Blood pressure diastolic 62 mm Hg 10/30/2024 Height 66.5 in 10/30/2024 Blood pressure systolic 140 mm Hg 10/30/2024 Weight 263 lbs 10/30/2024 BMI 41.81 kg/m2 10/30/2024 Encounters Encounter Location Date Provider Diagnosis [facility] [address] [place] [address] 06/24/2024 Provider Migration [facility] [address] [place] [address] 04/17/2024 Maurilio Hi Encounter for examination following treatment at hospital Z09 ; Nontraumatic compartment syndrome of left lower extremity M79.A22 ; Essential hypertension I10 ; Chronic kidney disease, unspecified CKD stage N18.9 and Hyperlipidemia E78.5 [facility] [address] [place] [address] 05/22/2024 Maurilio Hi Acquired aplastic anemia D61.89 ; History of CVA (cerebrovascular accident) Z86.73 ; Diastolic CHF with preserved left ventricular function, NYHA class 2 I50.30 ; Acquired hypothyroidism E03.9 ; Compartment syndrome of left lower extremity, sequela T79.A22S ; Facial rash R21 and Routine medical exam Z00.00 [facility] [address] [facility] [address] [place] [address] 05/26/2024 Maurilio Besson Right sided abdomina l pain R10.9 [facility] [address] [facility] [address] [place], [place] [address] 07/26/2024 Maurilio Besson Other chronic pulmon apollo embolism I27.82 ; Chronic kidney disease, unspecified CKD stage N18.9 ; CHF NYHA class II, chronic, diastolic I50.32 ; History of CVA (cerebrovascular accident) Z86.73 ; Essential hypertension I10 ; Chronic obstructive pulmonary disease, unspecified COPD type J44.9 ; Mild cognitive impairment with memory loss G31.84 ; Hyperlipidemia E78.5 and Age-related physical debility R54 [facility] [address] [facility] [address] [place], [place] [address] 08/09/2024 Maurilio Besson Diastolic CHF with preserved left ventricular function, NYHA class 2 I50.30 ; Seborrheic dermatitis L21.9 and Other seasonal allergic rhinitis J30.2 [facility] [address] [facility] [address] [place] [address] 08/28/2024 Maurilio Besson Wound of left lower extremity, sequela S81.802S [facility] [address] [facility] [address] [place], [place] [address] 10/30/2024 Maurilio Besson Paresthesia R20.2 ; Toenail fungus B35.1 ; Encounter for weight management Z76.89 ; Other malaise R53.81 ; Other fatigue R53.83 ; Ataxia R27.0 ; Vitamin D deficiency E55.9 and Cerebrovascular disease I67.9 [facility] [address] [facility] [address] [place] [address] 12/13/2024 Maurilio Besson [facility] [address] [facility] [address] [place] [address] 03/29/2024 Maurilio Besson [facility] [address] [facility] [address] [place] [address] 04/01/2024 Maurilio Besson [facility] [address] [place] [address] 04/13/2024 Maurilio Besson [facility] [address] [place] [address] 04/14/2024 Maurilio Besson [facility] [address] [place] [address] 04/18/2024 Maurilio Besson [facility] [address] [place] [address] 04/24/2024 Maurilio Besson [facility] [address] [place] [address] 04/25/2024 Maurilio Besson [facility] [address] [place] [address] 05/01/2024 Maurilio Besson [facility] [address] [facility] [address] [place] [address] 05/15/2024 Maurilio Besson [facility] [address] [place] [address] 05/18/2024 Maurilio Besson [facility] [address] [place] [address] 05/26/2024 Maurilio Besson [facility] [address] [place] [address] 06/12/2024 Maurilio Besson [facility] [address] [place] [address] 06/16/2024 Maurilio Besson [facility] [address] [place] [address] 08/17/2024 Maurilio Besson [facility] [address] [place] [address] 08/17/2024 Maurilio Besson [facility] [address] [place] [address] 08/21/2024 Maurilio Besson [facility] [address] [place] [address] 08/23/2024 Maurilio Besson [facility] [address] [place] [address] 08/31/2024 Maurilio Besson [facility] [address] [place] [address] 09/04/2024 Maurilio Besson [facility] [address] [place] [address] 09/06/2024 Maurilio Besson [facility] [address] [place] [address] 10/10/2024 Maurilio Besson [facility] [address] [facility] [place], [place] [address] 10/31/2024 Maurilio Besson [facility] [address] [place] [address] 11/03/2024 Maurilio Besson [facility] [address] [place] [address] 05/18/2024 Maurilio Besson Assessments Encounter Date Diagnosis [...] of at home. She specifically request the [employer] number and I gave this to her. She will investigate whether or not this is an option. Otherwise continue home health. Reviewed as noted 04/17/2024 Encounter for examination following treatment at hospital (ICD-10 - Z09) Patient developed RSV pneumonia and was transferred from [facility] to for higher acuity care. During his stay, he developed compartment syndrome and underwent fasciotomy. He was sent to [facility] for rehab. Since returning home, he is being seen by home health for wound care and dressing changes. His is interested in shelter facility due to her struggling to take care of him. I gave them information for [employer]. 05/22/2024 History of CVA (cerebrovascular accident) (ICD-10 [...] Recommended mild compression if it bothers him 10/30/2024 Paresthesia (ICD-10 - R20.2) Given involvment [...] then consider starting GLP-1 if A1c elevated. 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 Watched signs/symptoms of infection 10/30/2024 Ataxia (ICD-10 - R27.0) 10/30/2024 Vitamin D deficiency (ICD-10 - E55.9) 07/26/2024 Mild cognitive impairment with memory loss (ICD-10 - G31.84) 05/22/2024 Routine medical exam (ICD-10 - Z00.00) Patient not a candidate for colonoscopy or other cancer screening at this point given his significant frailty and his dementia. Up-to-date with vaccines. Will give new Prevnar 21 type vaccine at next visit. Fall risk high, prevention plan in place. Functional care plan in place. is healthcare surrogate. 10/30/2024 Cerebrovascular disease (ICD-10 - I67.9) 07/26/2024 Hyperlipidemia (ICD-10 - E78.5) 07/26/2024 Age-related [...] to in home PTOT I performed a hvxk-ze-wrxs evaluation on this patient today, and determined that this patient cannot leave home without significant difficulty based on pain, immobility and ataxia issues. They qualify for home health evaluation for PT/OT evaluation as well as nursing care, home safety and follow-up medical care. 04/17/2024 Other Follow up in 3 weeks. 07/26/2024 Other Please note I spent over 30minutes in direcct patient care Plan Of Treatment Pending Test [...] 07/04/2019 Next Appt Details Provider Name:Maurilio Hi, 01/01/2025 12:30:00 PM, [address], [address], [place], [address], Insurance Providers Payer Name Payer Address Payer Phone Subscriber Number Group Number Insured Name Patient Relationship to Insured Coverage Start Date Coverage End Date [place] [address] [place] [phone] [id number] Reji Carrillo Self - patient is the insured [employer] [address] [address] [place] [address] [phone] [id number] Reji Carrillo Self - patient is the [...] Surgery Date(Month/Year) removal of spleen 1953 Appendectomy 1963 T & A 1953 back surgeries - [...]
--- OUTSIDE RECORDS SUMMARY | 2024-12-13 16:41 | XMS_ITS | Clinical Summary ---
Author Organization Healthcare Address [address] [place] [address] Care Team Providers [employer] Name Role Phone Naresh Moura MD Primary Care Provider [phone] Allergies No known active allergies Medications albuterol [...] day. Active ergocalciferol (Vitamin D-2) 1.25 MG (01187 UT) capsule Take 1 capsule (50,000 Units) [...] other nostril if symptoms continue 1 each 5 Active Additional Information Patient not taking.Reported on [...] Severe obesity (BMI 35.0-39.9) with comorbidity 04/11/2024 Class III obesity with body mass index (BMI) of 40.0 or higher 03/18/2024 Resolved Problems Problem Noted Date Diagnosed Date Resolved Date Traumatic hematoma 04/11/2024 5 Overview (04/11/2024): 03/15 anterior/posterior LLE fasciotomy Will plan for skin grafting with Dr. Thompson Thigh hematoma, left, initial encounter 03/14/2024 03/25/2024 [...] money to buy more. Never true 03/16/20 Within the past 12 months, t he [...] any time in the past 12 [facility], were you homeless or living in a alf (including now)? No 03/16/2024 Utilities Answer Date [...] Screening 1950 [facility]icare Annual Wellness (AWV) 1950 [facility]-Infant/Child/Adol SDOH Screenings 1950 Diabetes: Dental Exam 1962 CT Colonography 1997 Colonoscopy 1997 FIT-DNA 1997 FIT 1997 FOBT 1997 Sigmoidoscopy 1997 [facility]-Colorectal Cancer Screening 1997 [facility]-RSV Vaccine: 60+ Years or (1 - Risk 60-74 years 1-dose series) 2012 [facility]-Abdominal Aortic Aneurysm (AAA) Screening 2017 [facility]-Diabetes: Hemoglobin A1C 08/21/2024 02/22/2024 [facility]- SDOH Screenings 09/14/2024 [facility]-Adult SDOH Screenings 09/14/2024 03/16/2024 [id number] Vaccine ( season) 2024 02/18/2021, 07/03/2020, 06/05/2020 [facility]-Influenza Vaccine (#1) 11/20/202412/31, 11/28/2021, 12/26/2020, Additional history exists [facility]-DTaP,Tdap,and Td [...] age to complete this topic Insurance MEDICARE [facility] Advance Directives Documents on File Type Date Recorded Patient Infant Caregiver Expl anation Advance Directives and Livin g Will 03/25/2024 10:29 AM * Full Code (Latest Code Status on File) Date Activated Date Inactivated Comments 03/25/2024 11:45 AM * Full Code Date Activated Date Inactivated Comments 03/14/2024 12:59 PM 03/25/2024 11:45 AM Question Answer Comments Patient has decision-making capacity? Yes [employer] Principal Relationship Specialty Start Date End Date Naresh Moura MD [address] [place] [address] PCP - General 08/02/20
--- NOTE | 2024-12-13 16:47 | XR_ITS ---
PROCEDURE INFORMATION: Exam: XR Left Tibia and Fibula Exam date and time: 12/13/2024 5:08 PM Age: 74 years old Clinical indication: Pain; Ankle; Left; Additional info: Pain edema TECHNIQUE: Imaging protocol: Radiologic exam of the left tibia and fibula. Views: 2 views. Total images: 4 COMPARISON: CR XR ANKLE LT MIN 3V 12/13/2024 5:08 PM FINDINGS: Bones/joints: Medial partial knee replacement. No evidence of complications as imaged. No evidence of acute fracture or dislocation. Calcaneal spurs are present. Soft tissues: Mild soft tissue swelling. Vasculature: Moderate atherosclerotic disease. IMPRESSION: 1. Medial partial knee replacement. No evidence of complications as imaged. 2. Mild soft tissue swelling. 3. No evidence of acute fracture or dislocation.
--- NOTE | 2024-12-13 16:48 | CT_ITS ---
PROCEDURE INFORMATION: Exam: CTA Chest With Contrast Exam date and time: 12/13/2024 5:57 PM Age: 74 years old Clinical indication: Condition or disease; Other: Rib fractures TECHNIQUE: Imaging protocol: Computed tomographic angiography of the chest with contrast. Exam focused on the arteries. 3D rendering (Not supervised by radiologist): MIP and/or 3D reconstructed images were created by the technologist. Radiation optimization: All CT scans at this facility use at least one of these dose optimization techniques: automated exposure control; mA and/or kV adjustment per patient size (includes targeted exams where dose is matched to clinical indication); or iterative reconstruction. Contrast material: ISO 370; Contrast volume: 80 ml; Contrast route: INTRAVENOUS (IV); COMPARISON: CT ANGIO CHEST PE PROTOCOL 03/07/2024 3:17 PM FINDINGS: Pulmonary arteries: Evaluation of pulmonary arteries is limited due to suboptimal contrast opacification. No evidence of pulmonary embolus. Aorta: Moderate atherosclerotic calcification throughout the aorta. No evidence of aneurysm or dissection. Lungs: Mild hypoaeration changes. No consolidation. No masses. Pleural spaces: Unremarkable. No pneumothorax. No pleural effusion. Heart: Unremarkable. No cardiomegaly. No pericardial effusion. Lymph nodes: Unremarkable. No enlarged lymph nodes. Bones/joints: Moderate multilevel anterior osteophyte/syndesmophyte formation throughout the thoracic spine. No vertebral body compression. No acute fracture. Soft tissues: Unremarkable. IMPRESSION: No significant acute abnormality. Chronic appearing findings as noted.
--- NOTE | 2024-12-13 16:48 | XR_ITS ---
PROCEDURE INFORMATION: Exam: XR Left Ankle Exam date and time: 12/13/2024 5:08 PM Age: 74 years old Clinical indication: Pain; Ankle; Left; Additional info: Pain edema TECHNIQUE: Imaging protocol: Radiologic exam of the left ankle. Views: 3 or more views. Total images: 3 COMPARISON: CR XR TIBIA FIBULA LT 2V 12/13/2024 5:08 PM FINDINGS: Bones/joints: No evidence of acute fracture or dislocation. Calcaneal spurs are present. Soft tissues: Soft tissues are within normal limits. Vasculature: Mild atherosclerotic disease. IMPRESSION: No evidence of acute fracture or dislocation.
--- NOTE | 2024-12-13 16:50 | CT_ITS ---
PROCEDURE INFORMATION: Exam: CT Abdomen And Pelvis With Contrast Exam date and time: 12/13/2024 5:57 PM Age: 74 years old Clinical indication: Injury or trauma; Fall; Blunt; Generalized TECHNIQUE: Imaging protocol: Computed tomography of the abdomen and pelvis with contrast. Radiation optimization: All CT scans at this facility use at least one of these dose optimization techniques: automated exposure control; mA and/or kV adjustment per patient size (includes targeted exams where dose is matched to clinical indication); or iterative reconstruction. Contrast material: ISOVUE; Contrast volume: 80 ml; Contrast route: IV; COMPARISON: CT ANGIO ABDOMEN/FEMORAL 03/13/2024 10:42 AM FINDINGS: Liver: Normal. No mass. Gallbladder and biliary ducts: Large (6 x 3 x 3 cm) gallstone exhibiting lamellar calcification noted in the gallbladder. No significant biliary ductal dilation. Pancreas: Normal. No ductal dilation. Spleen: Normal. No splenomegaly. Adrenal glands: Normal. No mass. Kidneys and ureters: Normal. No hydronephrosis. Stomach and bowel: Unremarkable. No obstruction. No mucosal thickening. Appendix: No evidence of appendicitis. Intraperitoneal space: Unremarkable. No free air. No significant fluid collection. Vasculature: Moderate atherosclerotic calcification throughout the aorta and iliac arteries. 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 No evidence of aortic dissection. Retroaortic left renal vein incidentally noted. Lymph nodes: Unremarkable. No enlarged lymph nodes. Urinary bladder: Unremarkable as visualized. Reproductive: Unremarkable as visualized. Bones/joints: Right hip prosthesis in place. Partial osseous fusion of the bilateral sacroiliac joints. Postoperative changes with posterior osseous fusion noted in the lower lumbosacral spine. Moderate multilevel degenerative disc changes. No vertebral body compression. No acute fracture. Soft tissues: Small fat containing umbilical hernia. IMPRESSION: No acute abnormality. Stable chronic findings as noted.
--- NOTE | 2024-12-13 16:54 | ED_ITS ---
Discharge Plan Disposition Patient Disposition: Home, Self-Care Condition: Fair Prescriptions Prescriptions: No Action ergocalciferol (vitamin D2) 1,250 mcg (50,000 unit) capsule 1,250 mcg PO Q2W Patient Comments: TAKE 1 CAPSULE BY MOUTH EVERY TWO WEEKS Xhance 93 mcg/actuation aerosol breath activated 1 spray intranasal . baclofen 10 mg tablet 10 mg PO TID Qty: 90 0RF gabapentin 300 mg capsule 300 mg PO TID Qty: 90 0RF levocetirizine 5 mg tablet 5 mg PO DAILY Patient Comments: TAKE 1 TABLET BY MOUTH ONCE DAILY DIRECTED FOR ALLERGIES sennosides-docusate sodium [Senna with Docusate Sodium] 8.6-50 mg tablet 1 tab-cap PO HS Santyl 250 unit/gram ointment 250 unit topical DIRECTED polyethylene glycol 3350 [Miralax] 17 gram/dose powder 17 g PO DAILY ketoconazole 2 % cream 1 applic topical DIRECTED cholecalciferol (vitamin D3) 1,250 mcg (50,000 unit) capsule 1,250 mcg PO .every two weeks Qty: 7 0RF levothyroxine 75 mcg tablet 75 mcg PO Patient Comments: TAKE 1 TABLET BY MOUTH ONCE DAILY Xhance 93 mcg/actuation aerosol breath activated 1 spray intranasal .daily Qty: 16 4RF Rx Instructions: into each nostril citalopram 20 mg tablet 20 mg PO DAILY 30 Days Qty: 90 3RF bumetanide 1 mg tablet 2 mg PO DAILY Qty: 180 3RF Eliquis 5 mg tablet 5 mg PO BID Qty: 180 1RF thiamine HCl (vitamin B1) 100 mg tablet See Rx Instructions .ROUTE .COMPLEX Qty: 30 11RF Dose Instruction: Take 1 tablet by mouth once daily Rx Instructions: Take 1 tablet by mouth once daily memantine 10 mg tablet See Rx Instructions .ROUTE .COMPLEX Qty: 60 11RF Dose Instruction: TAKE 1 TABLET BY MOUTH TWICE DAILY FOR DEMENTIA Rx Instructions: TAKE 1 TABLET BY MOUTH TWICE DAILY FOR DEMENTIA Trelegy Ellipta 100-62.5-25 mcg blister with device 1 inh inhalation DAILY 90 Days Qty: 90 2RF atorvastatin 80 mg tablet 80 mg PO DAILY Qty: 90 1RF albuterol sulfate 90 mcg/actuation HFA aerosol inhaler See Rx Instructions .ROUTE .COMPLEX Qty: 9 0RF Dose Instruction: INHALE 1 PUFF BY MOUTH 4 TIMES DAILY NEEDED FOR SHORTNESS OF BREATH OR WHEEZING Rx Instructions: INHALE 1 PUFF BY MOUTH 4 TIMES DAILY NEEDED FOR SHORTNESS OF BREATH OR WHEEZING acetaminophen 325 mg Tablet 650 mg PO Q6HP PRN (Reason: fever or pain) Qty: 0 0RF methocarbamol 750 mg tablet 750 mg PO TID Qty: 42 0RF methocarbamol 750 mg tablet 750 mg PO TID Qty: 90 0RF Referrals Follow up/Referrals: Maurilio Hi MD [Primary Care Provider, Internal Medicine] - See instructions Activity Restrictions/Add. Instructions Additional Instructions/Restrictions: You likely need to wear your oxygen at home during the day as well. I would like you to use your portable oxygen tanks and measure your oxygen at home. If you drop lower than 88% while ambulating you need to wear the oxygen. Follow-up with your primary care provider. You have a an appointment scheduled on January 01 but call them to see if you can get an earlier appointment. Return to the emergency department if you have any acute or worsening symptoms worsening shortness of breath. Or if you have any other acute concerns Clinical Impressions Clinical Impression: Acute leg pain Print Language Print Language: Albanian Discharge ED Provider: Lidya Barfield General Adult HPI <Alexandraraza Moy (ED), SENIOR ASSET MANAGER - Last Filed: 12/13/24 19:10> General Chief complaint: PAIN Stated complaint: swelling in left leg and knee Time Seen by Provider: 12/13/24 16:34 Mode of Arrival: Ambulatory Source of Information: Patient and Spouse Description of Symptoms (Recalled from ER Triage Doc. by RN): patient presents to the ED with his with multiple complaints. patient fell according to the on Wednesday trying to get out of his chair. patient his his entire right side but not his head. patinet on eliquis. patient complaining of right sided pain from his rib area down to his right ankle. also states his left ankle is swollen more than normal and patient has a history of compartment syndrome in the elft lower extremity. patient states my left foot is killing me . Related Data Home Medications ?Medication ?Instructions ?Recorded ?Confirmed levocetirizine 5 mg tablet 5 mg PO DAILY 10/11/2311/20 ergocalciferol (vitamin D2) 1,250 1,250 mcg PO Q2W 11/30/24 mcg (50,000 unit) capsule collagenase clostridium histo. 250 250 unit topical DIRECTED Skin 04/17/24 11/30/24 unit/gram topical ointment (Santyl) Condition ketoconazole 2 % topical cream 1 applic topical DIR ECTED Skin 04/17/24 11/30/24 Condition polyethylene glycol 3350 17 17 g PO DAILY 04/17/2402/13 gram/dose oral powder (Miralax) sennosides 8.6 mg-docusate sodium 1 tab-cap PO HS 03/2311/30/24 50 mg tablet (Senna with Docusate Sodium) fluticasone propionate 93 1 spray intranasal . 5 11/30/24 mcg/actuation breath activated aerosol (Xhance) levothyroxine 75 mcg tablet 75 mcg PO 11/15/24 5 Previous Rx's ?Medication ?Instructions ?Recorded citalopram 20 mg tablet 20 mg PO DAILY dementia 30 d ays 12/22/22 #90 tabs acetaminophen 325 mg tablet 650 mg (2 x 325 mg) PO Q6H P PRN 03/13/24 fever or pain #0 tabs bumetanide 1 mg tablet 2 mg (2 x 1 mg) PO DAILY #18 0 tabs 03/30/24 cholecalciferol (vitamin D3) 1,250 1,250 mcg PO .every two weeks #7 04/17/24 mcg (50,000 unit) capsule caps apixaban 5 mg tablet (Eliquis) 5 mg PO BID #180 tabs 0 06/19/24 thiamine HCl (vitamin B1) 100 mg See Rx Instructions . Route 06/20/24 tablet .COMPLEX #30 tabs memantine 10 mg tablet See Rx Instructions .Route 0 07/24/24 .COMPLEX #60 tabs fluticasone fur. 100 mcg-umeclid 1 inh inhalation JOSEFINA Y 90 days #90 08/24/24 62.5 mcg-vilant 25 mcg ea inhalat.powder (Trelegy Ellipta) methocarbamol 750 mg tablet 750 mg PO TID #42 tabs 05/16 methocarbamol 750 mg tablet 750 mg PO TID #90 tabs 12/14 fluticasone propionate 93 1 spray intranasal .daily #1 6 mL 11/15/24 mcg/actuation breath activated aerosol (Xhance) atorvastatin 80 mg tablet 80 mg PO DAILY #90 tabs 12/14 baclofen 10 mg tablet 10 mg PO TID #90 tabs gabapentin 300 mg capsule 300 mg PO TID #90 caps 11/30 albuterol sulfate 90 mcg/actuation See Rx Instructions .Route 12/11/24 aerosol inhaler .COMPLEX #9 grams Allergies Allergy/AdvReac Type Severity Reaction Status Date / Time No Known Allergies Allergy Verified 11/30/24 11:48 PFS <Alexandra Moy (ED), SENIOR ASSET MANAGER - Last Filed: 12/13/24 19:10> FORMERLY [facility], [facility] Disclaimer: The information contained in this section may have been updated after the patient was seen, as this information can be updated by other users. Medical History Compartment syndrome Non-functioning tympanostomy tube Debris in left ear canal Chronic sinusitis Acute and chronic respiratory failure with hypoxia SNHL (sensorineural hearing loss) ILD (interstitial lung disease) Sleep apnea Gall stone History of sleep apnea COPD exacerbation Allergic rhinitis Restrictive lung disease Allergic rhinitis History of smoking 30 or more pack years Dyspnea on exertion COPD (chronic obstructive pulmonary disease) Dyspnea on exertion Moderate aortic stenosis Active follow-up with cardiology at [facility] Mild aortic stenosis Pre-op evaluation HLD (hyperlipidemia) Pulmonary embolism CHF (congestive heart failure) Pulmonary hypertension HHD (hypertensive heart disease) CAD (coronary artery disease) DVT (deep venous thrombosis) Fatigue HTN (hypertension) Aortic valve stenosis Surgical History Status post arthroscopy of hip History of arthroscopic knee surgery Family History Other Stroke Social History Smoking Status: Never smoker second hand exposure: No alcohol intake: never substance use type: denies use current occupational status: retired Travel in the last 8 weeks?: None household members: significant other housing: house current occupational exposures/hazards: No caffeine: Yes Have you lived/traveled outside [place] in past 30 days?: No Contact w/someone who lives/traveled outside US past 30 days?: No Exposure to someone with infectious disease in past 14 days?: No Do you have a fever (greater than 100.4 F or 38 C)?: No Have you tested positive for COVID-19?: No Exposed to someone with COVID-19 in past 14 days?: No Do you have a sore throat?: No Do you have a cough?: No Do you have any weakness?: No Do you have any diarrhea?: No Are you experiencing any unusual bleeding?: No Do you have any muscle aches/pain?: No Do you have any abdominal pain?: No Are you experiencing loss of taste or smell?: No Other Medical History Have you received the Flu Vaccine for this season: No Have you received the Pneumonia Vaccine: Yes <Alexandra Moy (ED), SENIOR ASSET MANAGER - Last Filed: 12/13/24 19:10> ROS Obtained: Yes Systems reviewed as appropriate & no additional complaints except as documented Constitutional Constitutional: Reports as per HPI Physical Exam <Alexandra Moy (ED), SENIOR ASSET MANAGER - Last Filed: 12/13/24 19:10> General General appearance: alert and in distress (Appears short of breath but does not say he is short of breath) Head Head exam: atraumatic Eye Eye exam: Present PERRL and EOMI ENT ENT exam: Present normal oropharynx and mucous membranes moist Chest Chest inspection: Present tenderness (To right rib) Respiratory Respiratory exam: Present wheezes and other (Rhonchi throughout) Cardiovascular Cardiovascular exam: Present regular rate, +S1 and +S2 Abdominal Exam Abdominal exam: Present soft and normal bowel sounds Extremities Exam Extremities exam: Present normal capillary refill and edema (To left ankle and foot) Neurological Exam Neurological exam: Present alert and oriented X3 Skin Skin exam: Present warm and dry Medical Decision Making <Alexandra Moy (ED), SENIOR ASSET MANAGER - Last Filed: 12/13/24 19:10> Medical Records Screening: Per USPSTF and CDC recommendations, given the prevalence of disease in our region, it is our hospital?s policy to screen for HIV and viral Hepatitis for all patients aged 18 and over and those with ongoing risk factors. Win Inquiry Pt receiving controlled substance: No Win was queried for this patient: No Vital Signs: 12/13/24 16:28 12/13/24 18:12 12/13/24 18:30 Temperature 98.2 F Temperature Source Temporal Artery Scan Pulse Rate 86 94 H Pulse Rate [Right Radial] 87 Respiratory Rate 16 14 21 Blood Pressure 132/75 132/75 Blood Pressure [Right Arm] 146/87 H Blood Pressure Mean 94 Blood Pressure Mean [Right Arm] 106 Blood Pressure Source [Right Arm] Automatic Cuff Blood Pressure Position [Right Arm] Sitting 02 Sat by Pulse Oximetry 96 93 L 93 L Oxygen Delivery Method Room Air 12/13/24 20:43 Temperature 98.4 F Temperature Source Pulse Rate 85 Pulse Rate [Right Radial] Respiratory Rate 20 Blood Pressure 132/75 Blood Pressure [Right Arm] Blood Pressure Mean Blood Pressure Mean [Right Arm] Blood Pressure Source [Right Arm] Blood Pressure Position [Right Arm] 02 Sat by Pulse Oximetry Oxygen Delivery Method Room Air Lab Data Lab Results 12/13/24 16:45: WBC 16.5 H, RBC 4.57 L, Hgb 14.2, Hct 42.5, MCV 93.0, MCH 31.1, MCHC 33.4, RDW 13.7, Plt Count 378, MPV 11.8 H, Neut % (Auto) 51.4, Lymph % (Auto) 32.3, Ponce % (Auto) 11.7 H, Eos % (Auto) 2.9, Baso % (Auto) 1.2, Neut # (Auto) 8.5 H, Lymph # (Auto) 5.3 H, Ponce # (Auto) 1.9 H, Eos # (Auto) 0.5 H, Baso # (Auto) 0.2, Total Counted 100, Neutrophils % (Manual) 43, Lymphocytes % (Manual) 37, Monocytes % (Manual) 11 H, Eosinophils % (Manual) 7 H, Basophils % (Manual) 1.0, Metamyelocytes % 1.0, Platelet Estimate Normal, Giant Platelets 1+, RBC Morphology Not Reportable, Polychromasia 1+, Poikilocytosis 1+, Anisocytosis 1+, Microcytosis 1+, Macrocytosis 1+, VBG pH 7.34, VBG pCO2 50.2, VBG pO2 39.8, VBG HCO3 26.2, VBG Total CO2 27.8 H, VBG O2 Saturation 74.5 H, VBG Base Excess 0.4, VBG Lactic Acid 2.2 H, Sodium 140, Potassium 3.8, Chloride 100, Carbon Dioxide 29, Anion Gap 14.8, BUN 20, Creatinine 1.40 H, Estimated Creat Clear 81, Estimated GFR 50 L, Est GFR ( Amer) 60, Glucose 143 H, Calcium 9.1, Magnesium 1.9, Total Bilirubin 1.2, AST 36, ALT 20, Alkaline Phosphatase 125, Troponin I 0.03, NT-Pro-B Natriuret Pep 409 H, Total Protein 7.2, Albumin 4.3, Globulin 2.9, Albumin/Globulin Ratio 1.5, Lipase 46 12/13/24 20:04: Troponin I 0.04 H 12/13/24 16:45 12/13/24 16:45 Orders (Tests/Meds): ED MEDICATIONS Discontinued Medications Generic Name Dose Route Start Last Admin Trade Name Freq PRN Reason Stop Dose Admin Magnesium Sulfate 2 gm in 50 mls @ 50 mls/hr 12/13/24 16:56 12/13/24 18:37 Magnesium Sulfate 2gm/50ml Premix IV 12/13/24 17:55 Infused ONCE ONE Infusion Ceftriaxone Sodium 2 gm/ 100 mls @ 200 mls/hr 12/13/24 17:45 12/13/24 18:51 Sodium Chloride IV 12/23/24 17:44 Infused Q24H CLAUDIO Infusion Azithromycin 500 mg/ Sodium 250 mls @ 250 mls/hr 12/13/24 17:45 12/13/24 20:22 Chloride IV 12/23/24 17:44 Infused Q24H CLAUDIO Infusion Iopamidol 80 ml 12/13/24 17:54 12/13/24 17:57 Iopamidol-370 (76%);100ml Bottle IV 12/13/24 17:55 80 ml ONCE ONE Administration Methylprednisolone Sodium Succinate 125 mg 12/13/24 16:56 12/13/24 17:39 Methylprednisolone Sod Succ 125mg Vial IV 12/13/24 16:57 125 mg ONCE ONE Administration Sodium Chloride 50 ml 12/13/24 17:54 12/13/24 17:56 0.9 % Sodium Chloride 50 Ml Vial IV 12/13/24 17:55 50 ml ONCE ONE Administration Sodium Chloride 10 ml 12/13/24 17:54 12/13/24 17:57 Sodium Chloride 0.9% 10ml Syr (Rad Only) IV 12/13/24 17:55 10 ml ONCE ONE Administration ORDERS Category Date Time Status CT abdomen pelvis w con Stat Cat Scan 12/13/24 16:[address] angio chest PE protocol Stat Cat Scan 12/13/24 16:[address] cervical spine wo con Stat Cat Scan 12/13/24 17:[address] head/brain wo con Stat Cat Scan 12/13/24 16:59 Completed Ankle XR - Left minimum 3 Views [XR ankle LT min 3V] Exams 12/13/24 16:48 Completed Stat Fibula/tibia XR left 2 views [XR tibia fibula LT 2V] Exams 12/13/24 16:47 Completed Stat BNP [NT Pro Brain Natriuretic Pep.] Stat Lab 12/13/24 16:45 Completed CBC [Complete Blood Count Auto Diff] Stat Lab 12/13/24 16:45 Completed Comprehensive Metabolic Panel Stat Lab 12/13/24 16:45 Completed Lipase Stat Lab 12/13/24 16:45 Completed Magnesium Stat Lab 12/13/24 16:45 Completed Trop I [Troponin I] Stat Lab 12/13/24 16:45 Completed Troponin I Q3H Lab 12/13/24 20:04 Completed Blood Culture Stat Micro 12/13/24 18:15 Results VBG [Venous Blood Gas] Stat RT 12/13/24 16:45 Completed Medical Decision Narrative: Ipatient is a 74-year-old male presenting to the emergency department for evaluation of left ankle swelling, fall out of the chair with right rib pain and no complaints of shortness of breath but visual shortness of breath present. Patient is hemodynamically stable and short of air-appearing upon arrival, afebrile. Differential diagnosis includes COPD exacerbation, CHF exacerbation, right rib fracture, left ankle, among other. Workup will be conducted with hematologic labs, specific imaging. Initial inventions include analgesics. Initial workup reviewed by me hematologic labs are remarkable for elevated white count of 16.5. Due to this white count I did go ahead and get blood cultures and lactic acid. I also went ahead and started Rocephin and azithromycin for suspected infection. Patient appears short of breath although he does not complain of shortness of breath. I did not order the sepsis bolus as patient has CHF. I have discussed patient with Dr. Tellez who will take over care of patient. <Lidya Barfield, DO - Last Filed: 12/16/24 13:00> Vital Signs: 12/13/24 16:28 12/13/24 18:12 12/13/24 18:30 Temperature 98.2 F Temperature Source Temporal Artery Scan Pulse Rate 86 94 H Pulse Rate [Right Radial] 87 Respiratory Rate 16 14 21 Blood Pressure 132/75 132/75 Blood Pressure [Right Arm] 146/87 H Blood Pressure Mean 94 Blood Pressure Mean [Right Arm] 106 Blood Pressure Source [Right Arm] Automatic Cuff Blood Pressure Position [Right Arm] Sitting 02 Sat by Pulse Oximetry 96 93 L 93 L Oxygen Delivery Method Room Air 12/13/24 20:43 Temperature 98.4 F Temperature Source Pulse Rate 85 Pulse Rate [Right Radial] Respiratory Rate 20 Blood Pressure 132/75 Blood Pressure [Right Arm] Blood Pressure Mean Blood Pressure Mean [Right Arm] Blood Pressure Source [Right Arm] Blood Pressure Position [Right Arm] 02 Sat by Pulse Oximetry Oxygen Delivery Method Room Air Lab Data Lab results reviewed: Yes I reviewed the patient's lab results. Lab Results 12/13/24 16:45: WBC 16.5 H, RBC 4.57 L, Hgb 14.2, Hct 42.5, MCV 93.0, MCH 31.1, MCHC 33.4, RDW 13.7, Plt Count 378, MPV 11.8 H, Neut % (Auto) 51.4, Lymph % (Auto) 32.3, Ponce % (Auto) 11.7 H, Eos % (Auto) 2.9, Baso % (Auto) 1.2, Neut # (Auto) 8.5 H, Lymph # (Auto) 5.3 H, Ponce # (Auto) 1.9 H, Eos # (Auto) 0.5 H, Baso # (Auto) 0.2, Total Counted 100, Neutrophils % (Manual) 43, Lymphocytes % (Manual) 37, Monocytes % (Manual) 11 H, Eosinophils % (Manual) 7 H, Basophils % (Manual) 1.0, Metamyelocytes % 1.0, Platelet Estimate Normal, Giant Platelets 1+, RBC Morphology Not Reportable, Polychromasia 1+, Poikilocytosis 1+, Anisocytosis 1+, Microcytosis 1+, Macrocytosis 1+, VBG pH 7.34, VBG pCO2 50.2, VBG pO2 39.8, VBG HCO3 26.2, VBG Total CO2 27.8 H, VBG O2 Saturation 74.5 H, VBG Base Excess 0.4, VBG Lactic Acid 2.2 H, Sodium 140, Potassium 3.8, Chloride 100, Carbon Dioxide 29, Anion Gap 14.8, BUN 20, Creatinine 1.40 H, Estimated Creat Clear 81, Estimated GFR 50 L, Est GFR ( Amer) 60, Glucose 143 H, Calcium 9.1, Magnesium 1.9, Total Bilirubin 1.2, AST 36, ALT 20, Alkaline Phosphatase 125, Troponin I 0.03, NT-Pro-B Natriuret Pep 409 H, Total Protein 7.2, Albumin 4.3, Globulin 2.9, Albumin/Globulin Ratio 1.5, Lipase 46 12/13/24 20:04: Troponin I 0.04 H Orders (Tests/Meds): ED MEDICATIONS Discontinued Medications Generic Name Dose Route Start Last Admin Trade Name Freq PRN Reason Stop Dose Admin Magnesium Sulfate 2 gm in 50 mls @ 50 mls/hr 12/13/24 16:56 12/13/24 18:37 Magnesium Sulfate 2gm/50ml Premix IV 12/13/24 17:55 Infused ONCE ONE Infusion Ceftriaxone Sodium 2 gm/ 100 mls @ 200 mls/hr 12/13/24 17:45 12/13/24 18:51 Sodium Chloride IV 12/23/24 17:44 Infused Q24H CLAUDIO Infusion Azithromycin 500 mg/ Sodium 250 mls @ 250 mls/hr 12/13/24 17:45 12/13/24 20:22 Chloride IV 12/23/24 17:44 Infused Q24H CLAUDIO Infusion Iopamidol 80 ml 12/13/24 17:54 12/13/24 17:57 Iopamidol-370 (76%);100ml Bottle IV 12/13/24 17:55 80 ml ONCE ONE Administration Methylprednisolone Sodium Succinate 125 mg 12/13/24 16:56 12/13/24 17:39 Methylprednisolone Sod Succ 125mg Vial IV 12/13/24 16:57 125 mg ONCE ONE Administration Sodium Chloride 50 ml 12/13/24 17:54 12/13/24 17:56 0.9 % Sodium Chloride 50 Ml Vial IV 12/13/24 17:55 50 ml ONCE ONE Administration Sodium Chloride 10 ml 12/13/24 17:54 12/13/24 17:57 Sodium Chloride 0.9% 10ml Syr (Rad Only) IV 12/13/24 17:55 10 ml ONCE ONE Administration ORDERS Category Date Time Status CT abdomen pelvis w con Stat Cat Scan 12/13/24 16:[address] angio chest PE protocol Stat Cat Scan 12/13/24 16:[address] cervical spine wo con Stat Cat Scan 12/13/24 17:[address] head/brain wo con Stat Cat Scan 12/13/24 16:59 Completed Ankle XR - Left minimum 3 Views [XR ankle LT min 3V] Exams 12/13/24 16:48 Completed Stat Fibula/tibia XR left 2 views [XR tibia fibula LT 2V] Exams 12/13/24 16:47 Completed Stat BNP [NT Pro Brain Natriuretic Pep.] Stat Lab 12/13/24 16:45 Completed CBC [Complete Blood Count Auto Diff] Stat Lab 12/13/24 16:45 Completed Comprehensive Metabolic Panel Stat Lab 12/13/24 16:45 Completed Lipase Stat Lab 12/13/24 16:45 Completed Magnesium Stat Lab 12/13/24 16:45 Completed Trop I [Troponin I] Stat Lab 12/13/24 16:45 Completed Troponin I Q3H Lab 12/13/24 20:04 Completed Blood Culture Stat Micro 12/13/24 18:15 Results VBG [Venous Blood Gas] Stat RT 12/13/24 16:45 Completed Medical Decision Narrative: Ipatient is a 74-year-old male presenting to the emergency department for evaluation of left ankle swelling, fall out of the chair with right rib pain and no complaints of shortness of breath but visual shortness of breath present. Patient is hemodynamically stable and short of air-appearing upon arrival, afebrile. Differential diagnosis includes COPD exacerbation, CHF exacerbation, right rib fracture, left ankle, among other. Workup will be conducted with hematologic labs, specific imaging. Initial inventions include analgesics. Initial workup reviewed by me hematologic labs are remarkable for elevated white count of 16.5. Due to this white count I did go ahead and get blood cultures and lactic acid. I also went ahead and started Rocephin and azithromycin for suspected infection. Patient appears short of breath although he does not complain of shortness of breath. I have discussed patient with Dr. Barfield who will take over care of patient. Lidya Barfield, DO I assumed care of the patient Labs reviewed and interpreted by myself: CBC did show mild leukocytosis, hemoglobin was stable, VBG was unremarkable. X-rays of the lower extremity showed no acute fractures or other acute pathology. CT head showed no acute pathology, CT cervical spine showed no acute pathology. Patient CT scans were reviewed and interpreted by myself which showed no acute pulmonary pathology no associated rib fractures. CT abdomen showed no acute pathology. Although patient does visibly look short of breath, patient states this is his typical breathing pattern. Patient has a equipment tech that he follows with. Patient's main complaint was right sided rib pain after a fall. Patient had oxygen at home and patient uses oxygen at night. Patient states that he intermittently uses oxygen during the day and has portable tanks. Patient did an O2 ambulatory test in the emergency department and patient dropped to about 88% on room air. Given patient's history of COPD I felt this was appropriate. I recommended that patient stay in the emergency department, but patient wished to discharge home. I told the patient that he needs to check his oxygen at home with ambulation and if his oxygen continues to drop at home that he needs to wear his portable oxygen. I recommended that patient follow-up with his primary care provider as well as his equipment tech and to return to the emergency department for any acute or worsening symptoms. Critical Care <Alexandra Moy (ED), SENIOR ASSET MANAGER - Last Filed: 12/13/24 19:10> Critical Care Time Critical Care Time: No
--- NOTE | 2024-12-13 16:59 | CT_ITS ---
PROCEDURE INFORMATION: Exam: CT Head Without Contrast Exam date and time: 12/13/2024 5:51 PM Age: 74 years old Clinical indication: Injury or trauma; Other: Fall on blood thinners TECHNIQUE: Imaging protocol: Computed tomography of the head without contrast. Radiation optimization: All CT scans at this facility use at least one of these dose optimization techniques: automated exposure control; mA and/or kV adjustment per patient size (includes targeted exams where dose is matched to clinical indication); or iterative reconstruction. COMPARISON: CT HEAD/BRAIN WO CON 06/24/2023 5:07 PM FINDINGS: Brain: There are severe bilateral periventricular low-attenuation white matter foci consistent with cerebral chronic small vessel disease. Mild global cerebral volume loss identified. No evidence for selective atrophy. 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 Cerebral ventricles: No ventriculomegaly. Paranasal sinuses: Visualized sinuses are unremarkable. No fluid levels. Mastoid air cells: Visualized mastoid air cells are well aerated. Bones: Unremarkable. No acute fracture. Soft tissues: Unremarkable. IMPRESSION: 1. 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 Senescent changes within the brain as discussed. 2. No acute intracranial process is identified.
--- NOTE | 2024-12-13 17:00 | CT_ITS ---
PROCEDURE INFORMATION: Exam: CT Cervical Spine Without Contrast Exam date and time: 12/13/2024 5:53 PM Age: 74 years old Clinical indication: Injury or trauma; Fall; Blunt trauma TECHNIQUE: Imaging protocol: Computed tomography of the cervical spine without contrast. Radiation optimization: All CT scans at this facility use at least one of these dose optimization techniques: automated exposure control; mA and/or kV adjustment per patient size (includes targeted exams where dose is matched to clinical indication); or iterative reconstruction. COMPARISON: CT CERVICAL SPINE WO CON 06/24/2023 5:13 PM FINDINGS: Bones: Multilevel degenerative disc space loss with endplate osteophyte formation, facet and uncovertebral hypertrophy. No acute fracture. Lungs: Lung apices are normal. Soft tissues: Unremarkable. IMPRESSION: No evidence for acute fracture.
[2024-12-13 17:02] LABS: Lactate Venous 2.2 mmol/L (0.4-2.0); VBG HCO3 26.2 mmol/L (23-30); VBG PCO2 50.2 mmol/L (35-51); VBG PH 7.34 mmol/L (7.31-7.41); VBG PO2 39.8 mmol/L (28-40)
[2024-12-13 17:03] LABS: Hematocrit 42.5 % (42.0-52.0); Hemoglobin 14.2 g/dL (14.1-18.0); Immature Granulocytes % 0.5 %; Mean Corpuscular HGB Conc 33.4 g/dL (31.8-35.4); Mean Corpuscular Hemoglobin 31.1 pg (27.0-31.2); Mean Corpuscular Volume 93.0 fl (80-94); Nucleated Red Blood Cells % 0 %; Platelet Count 378 K/mm3 (142-424); Red Blood Count 4.57 M/mm3 (4.60-6.20); Red Cell Distribution Width-SD 46.0 fL; White Blood Count 16.5 K/mm3 (4.8-10.8)
--- NOTE | 2024-12-13 17:04 | ECG_ITS ---
APPROVED REPORT Exam: Resting ECG HR:86 bpm ECG Measurements Heart Rate 86 AXES SC 227 P 46 QRSd 96 QRS 13 QT 378 T -55 QTc 421 Conclusion SINUS RHYTHM WITH FIRST DEGREE AV BLOCK WITH OCCASIONAL VENTRICULAR PREMATURE COMPLEXES NONSPECIFIC T-WAVE ABNORMALITY ABNORMAL ECG Electronically signed by : BETY NEWMAN, 12/14/2024 09:18:55
[2024-12-13 17:05] LABS: Albumin Level 4.3 g/dl (3.5-5.0); Chloride 100 mmol/L (98-107); Sodium 140 mmol/L (136-145)
[2024-12-13 17:06] LABS: Potassium 3.8 mmoL/L (3.5-5.1)
[2024-12-13 17:08] LABS: Alanine Aminotransferase 20 U/L (12-78); Albumin/Globulin Ratio 1.5 (1.1-1.8); Alkaline Phosphatase 125 U/L (38-126); Anion Gap 14.8 mEq/L (5-15); Aspartate Amino Transferase 36 U/L (17-59); Bilirubin,Total 1.2 mg/dl (0.2-1.3); Blood Urea Nitrogen 20 mg/dl (9-20); Calcium 9.1 mg/dl (8.4-10.2); Carbon Dioxide 29 mmol/L (22.0-30.0); Creatinine Clearance Estimated 81 mL/min (50-200); Creatinine,Serum 1.40 mg/dl (0.66-1.25); Estimated Glomerular Filt Rate 50 ml/min (>60); GFR (African American) 60 ML/MIN (>60); Globulin 2.9 g/dL (1.3-3.2); Glucose 143 mg/dl (74-100); Lipase 46 U/L (23-300); Total Protein,Serum 7.2 g/dl (6.3-8.2)
[2024-12-13 17:09] LABS: Magnesium 1.9 mg/dl (1.6-2.3)
[2024-12-13 17:17] LABS: NT Pro Brain Natriuretic Pep. 409 pg/mL (0-125)
[2024-12-13 17:20] LABS: Troponin I 0.03 ng/ml (0.00-0.034)
[2024-12-13 17:32] LABS: Total Cells Counted 100
[2024-12-13 17:33] LABS: Anisocytosis 1+; Macrocytosis 1+; Microcytosis 1+; Poikilocytosis 1+; Polychromasia 1+
[2024-12-13 17:34] LABS: Giant Platelets 1+
[2024-12-13] MEDS: METHYLPREDNISOLONE SOD SUCC 125MG VIAL 125 MG IV (17:39)
[2024-12-13] MEDS: MAGNESIUM SULFATE IN WATER 2 GM/50 ML PIGGYBACK IV (17:39)
[2024-12-13] MEDS: 0.9 % SODIUM CHLORIDE 50 ML VIAL IV (17:56)
[2024-12-13] MEDS: SODIUM CHLORIDE 0.9% 10ML SYR (RAD ONLY) 10 ML IV (17:57)
[2024-12-13] MEDS: IOPAMIDOL-370 (76%);100ML BOTTLE 80 ML IV (17:57)
[2024-12-13 18:12] VITALS: BP 132/75; PULSE 86; RESP 14; O2SAT 93
[2024-12-13 18:30] VITALS: BP 132/75; PULSE 94; RESP 21; O2SAT 93
[2024-12-13] MEDS: AZITHROMYCIN 500 MG in 0.9 % SODIUM CHLORIDE 250 ML 250 MG IV (18:48)
--- NOTE | 2024-12-13 20:10 | PC.NURSE ---
rounded on pt, pt is lying in bed and call light within reach. pt nor family needs anything at this time
--- NOTE | 2024-12-13 20:20 | PC.NURSE ---
walked pt, O2 stat dropped to 83. pt is now back in his room, dr del rosario.
[2024-12-13 20:37] LABS: Troponin I 0.04 ng/ml (0.00-0.034)
[2024-12-13 20:43] VITALS: BP 132/75; PULSE 85; RESP 20; TEMP 36.9; O2SAT 98
[2024-12-13 21:03] LABS: Reflex Lactic Add Lactic Reflex
== END 2024-12-13 20:57 | disposition home or self-care (01) ==
PROVIDERS: Nurse Practitioner; Emergency Provider Student in an Organized Health Care Education/Training Program; PCP Internal Medicine Adolescent Medicine
DX: R07.81 Pleurodynia (principal); M79.672 Pain in left foot; R60.0 Localized edema; R06.89 Other abnormalities of breathing; R74.02 Elevation of levels of lactic acid dehydrogenase [LDH]; J44.9 Chronic obstructive pulmonary disease, unspecified; I11.0 Hypertensive heart disease with heart failure; I50.9 Heart failure, unspecified; Z87.891 Personal history of nicotine dependence
CPT/HCPCS: 70450; 71275; 72125; 73590; 73610; 74177; 80053; 82803; 83690; 83735; 83880; 84484; 85007; 85025; 87040; 93005; 96365; 96366; 96367; 96375; 99284; 99285; J0456; J0696; J2919; J3475; J7050; Q9967

== ENCOUNTER 2025-01-16 13:39 | Outpatient (CLI) | payer MEDICARE, SELFPAY ==
--- OUTSIDE RECORDS SUMMARY | 2024-06-24 17:30 | XMS_ITS ---
Author Organization [facility] Address [address] [place] [address] Care Team Providers Care Restoration Officer Name Role Phone Maurilio Hi Primary Care Provider [phone] Migration, Provider Unavailable Unavailable REASON FOR VISIT Mult[facility] To [facility] Conversion Encounter Medications Medication SIG (Take, Route, Frequency, Duration) Notes Start Date End Date Status Citalopram Hydrobromide 20 MG 1 tab(s) orally once a day; Duration: 90 days Active Atorvastatin Calcium 80 MG 1 tab(s) orally once a day; Duration: 30 days Active Bumetanide 1 MG 2tabs orally in the morning; Duration: 30 days Active Memantine HCl 10 MG 1 tab orally twice a day; Duration: 30 days Active Euthyrox 50 MCG (0.05 MG) 1 TAB(S) ORALLY ONCE A DAY; Duration: 30 DAYS *Please review and pick correct [facility]. If intended option is not shown, discontinue and re-order from Quick Search* Active PROAIR HFA 90 MCG/INH INHALE 2 PUFFS BY MOUTH EVERY 4 HOURS NEEDED; Duration: 50 *Please review for potential replacement for e-prescription and drug interaction check* Active Vitamin B1 100 MG 1 tab(s) orally once a day; Duration: 7 day(s) Active OXYGEN CONSERVER DIRECTED DX: J44.9 DIRECTED 2L *Please review for potential replacement for e-prescription and drug interaction check* 08/09/2017 Active Azelastine HCl 137 MCG/SPRAY 2 spray(s) intranasally 2 times a day Active Fluticasone Propionate (Inhal) FUROATE 50 MCG DIRECTED INHALED EVERY 24 HOURS *Please review and pick correct strength-formulat ion from [employer]-NOK options. If intended option is not shown, discontinue and re-order from Quick Search* Active MiraLax - DIRECTED ORALLY ONCE A DAY prn *Please review and pick correct strength-formulat ion from [employer]-NOK options. If intended option is not shown, discontinue and re-order from Quick Search* Active Carvedilol 3.125 MG 1 tab(s) orally 2 times a day Active COLLAGENASE TOPICAL 250 UNITS/G 1 VASYL APPLIED TOPICALLY ONCE A DAY *Please review for potential replacement for e-prescription and drug interaction check* Active Tylenol 325 MG 2 tab(s) orally every 6 hours Active Vitamin D3 1250 MCG 1 CAP(S) ORALLY EVERY 2 WEEKS *Please review and pick correct strength-formulat ion from [employer]K options. If intended option is not shown, discontinue and re-order from Quick Search* Active CPAP MACHINE WITH ADULT SETUP *Please review for potential replacement for e-prescription and drug interaction check* Active Vitamin D (Ergocalciferol) 1.25 MG (41922 UT) 1 cap(s) orally every 2 weeks Active Clobetasol Propionate 0.05 % 1 vasyl applied topically 2 times a day; Duration: 14 days 05/22/2024 Active Trelegy Ellipta 100 MCG-62.5 MCG-25 MCG/INH 1 INH INHALED ONCE A DAY *Please review and pick correct strength-formulat ion from Secure-NOK options. If intended option is not shown, discontinue and re-order from Quick Search* Active Levocetirizine Dihydrochloride 5 MG 1 tab(s) orally once a day (in the evening) Active metOLazone 5 MG 1 tab(s) orally once a day; Duration: 30 days 05/18/2024 Active Senna 8.6 MG 1 tab(s) orally once a day (at bedtime); Duration: 90 days Active Apixaban 5 MG as directed orally 2 times a day Active Encounters Encounter Location Date Provider Diagnosis [facility] [address] [facility] [address] [place] [address] 06/24/2024 Provider Migration Plan Of Treatment Next Appt Details Provider Name:Maurilio Hi, 01/17/2025 02:30:00 PM, [address], [place], [address], Provider Name:Maurilio Hi, 02/07/2025 12:30:00 PM, [address] [facility] [address] [facility], [address], [place], [address], Progress Notes * Reji WELLERDOB: [birth year] (74 yo M)Acc No.[id number]:06/24/2024 Patient: Reji CUADRA Provider: Hayley Alfonso :1950 A ge:73 Y S ex:Male Date:06/24/2024 [address] [id number] Pcp:Maurilio Hi Subjective: * Chief Complaints: * 1 . Multum To [facility] Conversion Encounter. * Medical History: * Medications: T aking Vitamin D (Ergocalciferol) 1.25 MG (62139 UT) Capsule 1 cap(s) orally every 2 weeks , Taking CPAP MACHINE WITH ADULT SETUP , Notes to Pharmacist: *Please review for potential replacement for e-prescription and drug interaction check*, Taking Trelegy Ellipta 100 MCG-62.5 MCG-25 MCG/INH POWDER 1 INH INHALED ONCE A DAY , Notes to Pharmacist: *Please review and pick correct strength-formulation from Medispan options. If intended option is not shown, discontinue and re-order from Quick Search*, Taking Levocetirizine Dihydrochloride 5 MG Tablet 1 tab(s) orally once a day (in the evening) , Taking COLLAGENASE TOPICAL 250 UNITS/G OINTMENT 1 VASYL APPLIED TOPICALLY ONCE A DAY , Notes to Pharmacist: *Please review for potential replacement for e-prescription and drug interaction check*, Taking Vitamin D3 1250 MCG CAPSULE 1 CAP(S) ORALLY EVERY 2 WEEKS , Notes to Pharmacist: *Please review and pick correct strength-formulation from Medispan options. If intended option is not shown, discontinue and re-order from Quick Search*, Taking Tylenol 325 MG Tablet 2 tab(s) orally every 6 hours , Taking Carvedilol 3.125 MG Tablet 1 tab(s) orally 2 times a day , Taking MiraLax - POWDER FOR RECONSTITUTION DIRECTED ORALLY ONCE A DAY , Notes to Pharmacist: prn *Please review and pick correct strength-formulation from Secure-NOK options. If intended option is not shown, discontinue and re-order from Quick Search*, Taking Fluticasone Propionate (Inhal) FUROATE 50 MCG POWDER DIRECTED INHALED EVERY 24 HOURS , Notes to Pharmacist: *Please review and pick correct strength-formulation from Secure-NOK options. If intended option is not shown, discontinue and re-order from Quick Search*, Taking Azelastine HCl 137 MCG/SPRAY Solution 2 spray(s) intranasally 2 times a day , Taking OXYGEN CONSERVER DIRECTED DX: J44.9 DIRECTED , Notes to Pharmacist: 2L *Please review for potential replacement for e-prescription and drug interaction check*, Taking Vitamin B1 100 MG Tablet 1 tab(s) orally once a day , Taking PROAIR HFA 90 MCG/INH AEROSOL INHALE 2 PUFFS BY MOUTH EVERY 4 HOURS NEEDED , Notes to Pharmacist: *Please review for potential replacement for e-prescription and drug interaction check*, Taking Bumetanide 1 MG Tablet 2tabs orally in the morning , Taking Atorvastatin Calcium 80 MG Tablet 1 tab(s) orally once a day , Taking Euthyrox 50 MCG (0.05 MG) TABLET 1 TAB(S) ORALLY ONCE A DAY , Notes to Pharmacist: *Please review and pick correct strength-formulation from Secure-NOK options. If intended option is not shown, discontinue and re-order from Quick Search*, Taking Memantine HCl 10 MG Tablet 1 tab orally twice a day , Taking Citalopram Hydrobromide 20 MG Tablet 1 tab(s) orally once a day , Taking metOLazone 5 MG Tablet 1 tab(s) orally once a day , Taking Apixaban 5 MG Tablet as directed orally 2 times a day , Taking Senna 8.6 MG Tablet 1 tab(s) orally once a day (at bedtime) , Taking Clobetasol Propionate 0.05 % Solution 1 vasyl applied topically 2 times a day Objective: * Vitals: Assessment: Plan: * Treatment: * * Electronic signature of Prov ider Migration on 01/17/2025 at 12:48 PM EDT Sign off status: Pending * Provider: Hayley morales Migration Date: 0 06/24/2024 Generated for Tierney abad/Lisa/Kenyatta on: 1 12:48 PM EDT
--- OUTSIDE RECORDS SUMMARY | 2024-08-30 12:00 | XMS_ITS ---
Author Organization [facility] Address [address] [facility] [address] [facility] [address] [place] [address] Care Team Providers Care Intel Analyst Name Role Phone Maurilio Hi Primary Care Provider REASON FOR VISIT 4 week follow up Encounters Encounter Location Date Provider Diagnosis [facility] [address] [facility] [address] [place], [place] [address] 08/30/2024 Maurilio Hi Plan Of Treatment Next Appt Details Provider Name:Maurilio Hi, 01/17/2025 02:30:00 PM, [address] [facility], [address], [place], [place], [address], Provider Name:Maurilio Hi, 02/07/2025 12:30:00 PM, [address] [facility], [address], [place], [place], [address], Progress Notes * Reji WELLER JDOB: [birth year] (74 yo M)Acc No.[id number]:08/30/2024 Progress Notes Patient: Reji CUADRA Provider: Abdiaziz Hi MD :1950 A ge:73 Y S ex:Male Date:08/30/2024 Address:[address] [id number] Subjective: * Chief Complaints: * 1 . 4 week follow up. * Medical History: Objective: * Vitals: Assessment: Plan: * Treatment: * * Electronic signature of Robert Hi MD FAAP on 01/17/2025 at 12:48 PM EDT Sign off status: Pending * Provider: Abdiaziz Hi MD Date: 0 08/30/2024 Generated for Tierney abad/Lisa/Amandoitting on: 1 12:48 PM EDT
--- OUTSIDE RECORDS SUMMARY | 2024-12-08 10:00 | XMS_ITS ---
Author Organization [facility] Address [address] [facility] [address] [place] [address] Care Team Providers Care Etl Informatica Developer Name Role Phone Maurilio Hi Primary Care Provider REASON FOR VISIT Tingling in hands, sore thumbs, swollen Encounters Encounter Location Date Provider Diagnosis [facility] [address] [place] [address] 12/08/2024 Maurilio Hi Plan Of Treatment Next Appt Details Provider Name:Maurilio Hi, 01/17/2025 02:30:00 PM, [address] [facility], [address], [place], [place], [address], Provider Name:Maurilio Hi, 02/07/2025 12:30:00 PM, [address] [facility], [address], [place], [place], [address], Progress Notes * Reji WELLER CeciliaDOB: [birth year] (74 yo M)Acc No.[id number]:12/08/2024 Progress Notes Patient: Reji CUADRA Provider: Abdiaziz Hi MD :1950 A ge:74 Y S ex:Male Date:12/08/2024 Address:[address] [id number] Subjective: * Chief Complaints: * 1 . Tingling in hands, sore thumbs, swollen. * Medical History: Objective: * Vitals: Assessment: Plan: * Treatment: * * Electronic signature of Robert iH MD FAAP on 01/17/2025 at 12:48 PM EDT Sign off status: Pending * Provider: Abdiaziz Hi MD Date: 0 12/08/2024 Generated for Tierney abad/Lisa/Amandoitting on: 1 12:48 PM EDT
--- OUTSIDE RECORDS SUMMARY | 2024-12-15 07:30 | XMS_ITS ---
Author Organization [facility] Address [address] [place] [address] Care Team Providers Care Harp Regulator Name Role Phone Maurilio Hi Primary Care Provider Allergies No Known Allergies Reason For Referral Reason [facility] home [facility] for PT OT evaluation at home Diagnosis 1 Unspecified fall, kwong bsequent encounter (W19.XXXD) Referral Organization [facility] Referring Provider First Name Maurilio Referring Provider Last Name Kolton Referring Provider Speciality Internal M edicine Referred Organization [facility] Referred Address [address], [place], [place],[address], Referred Provider Specialty [facility] General Notes Iwona Flores 2024 12:22:02 PM >sent to [facility] Referral Priority Routine REASON FOR VISIT [facility] ER F/U- Ankles swollen and low O2 levels when walking Medications Medication SIG (Take, Route, Frequency, Duration) Notes Start Date End Date Status Memantine HCl 10 MG 1 tab orally twice a day; Duration: 30 days Active Atorvastatin Calcium 80 MG 1 tab(s) oral ly once a day; Duration: 30 days Active Bumetanide 1 MG 2tabs orally in the morning; Duration: 30 days Active PROAIR HFA 90 MCG/INH INHALE 2 PUFFS BY MOUTH EVERY 4 HOURS NEEDED; Duration: 50 Active Vitamin B1 100 MG 1 tab(s) orally once a day; Duration: 7 day(s) Active Tylenol 325 MG 2 tab(s) orally ever y 6 hours Active Levocetirizine Dihydrochloride 5 MG 1 tab(s) orally once a day (in the evening) Active OXYGEN CONSERVER DIRECTED DX: J44. 9 DIRECTED 2L 08/09/2017 Active MiraLax - DIRECTED ORALLY O NCE A DAY prn Active Carvedilol 3.125 MG 1 tab(s) orally 2 ti mes a day Active Trelegy Ellipta 100 MCG-62.5 MCG-25 MCG/INH 1 INH INHALED ONCE A DAY A ctive CPAP MACHINE WITH ADULT SETUP Active Xhance 93 MCG/ACT 2 sprays (1 spray in each nostril) Nasally Twice a day Active Eliquis 5 MG as directed Orally Active Vitamin D (Ergocalciferol) 1.25 MG (97947 UT) 1 cap(s) orally every 2 weeks; Duration: 30 days Active Apixaban 5 MG as directed orally 2 times a day Active Euthyrox 75 MCG 1 tab Orally Once a day; Duration: 90 days Active Ciclopirox 8 % 1 application at bed time Externally Once a day; Duration: 90 days 10/30/2024 Active Clobetasol Propionate 0.05 % 1 vasyl appli ed topically 2 times a day; Duration: 14 days 05/22/2024 Active Senna 8.6 MG 1 tab(s) orally once a day (at bedtime); Duration: 90 days Active metOLazone 5 MG 1 tab(s) orally once a day; Duration: 30 days 05/18/2024 Active Citalopram Hydrobromide 20 MG 1 tab(s) orally once a day; Duration: 90 days Active Social History Tobacco Use: Social History Observation Description Date Details (start date - stop date) Former Smoker NA - NA Smoking: Question Answer Notes Are you a: former smoker How long has it been since you last smoked? > 10 years Problems Problem Type SNOMED Code ICD Code Onset Dates Problem Status W/U Status Risk Notes Problem Chronic respiratory failure (93883042) Chronic respiratory failure with hypoxia (J96.11) Active confirmed Vital Signs Temperature 97.6 degrees Fahrenheit 12/16/19 25 Blood pressure systolic 116 mm Hg 12/16/19 25 Blood pressure diastolic 70 mm Hg 025 Heart Rate 78 /min 12/15/2024 Height 66.5 in 12/15/2024 Weight 266 lbs 12/15/2024 BMI 42.29 kg/m2 12/15/2024 Oximetry 76 12/15/2024 Encounters Encounter Location Date Provider Diagnosis Sami Cowan [facility] [address] [facility] [address] [place] [address] 12/15/2024 Maurilio Hi Chronic obstructive pulmonary disease, unspecified COPD type J44.9 ; Essential hypertension I10 ; Unspecified fall, subsequent encounter W19.XXXD ; Unspecified place in unspecified non-institutional (private) residence as the place of occurrence of the external cause Y92.009 ; Hospital discharge follow-up Z09 and Chronic respiratory failure with hypoxia J96.11 Assessments Encounter Date Diagnosis (ICD Code) Assessment Notes Treatment Notes Treatment Clinical Notes Section Notes 12/15/2024 Chronic obstructive pulmonary disease, unspecified COPD type (ICD-10 - J44.9) Patient is on nebulizer treatment at home and inhalers. He needs his oxygen 12/10. Have encouraged him to do this. Portable oxygen equipment is not working. His will call [facility] medical. I have encouraged him when he sits in his recliner to start doing his oxygen on a regular basis. He does not really like to do this because I just do not want to. 12/15/2024 Essential hypertension (ICD-10 - I10) Blood pressure under good control 12/15/2024 Unspecified fall, subsequent encounter (ICD-10 - W19.XXXD) Has not been doing home health physical therapy after he completed the program about 6 weeks ago. Recurrent falls and hypoxia. Is at risk for problems and his fall would give me a sign that he would benefit from another round of PT 12/15/[address] in unspecified non-institutional (private) residence as the place of occurrence of the external cause (ICD-10 - Y92.009) I performed a bwod-[id number]-[id number] evaluation on this patient today, and determined that this patient cannot leave home without significant difficulty based on pain, immobility and ataxia issues. They qualify for home health evaluation for PT/OT evaluation as well as nursing care, home safety and follow-up medical care. 12/15/2024 Hospital discharge follow-up (ICD-10 - Z09) I reviewed ER notes available from emergency department. Reviewed labs, reviewed discharge plan, personally reconciled medication. 12/15/2024 Chronic respiratory failure with hypoxia (ICD-10 - J96.11) Instructions for oxygen as noted above Plan Of Treatment Treatment Notes Assessment Notes Chronic obstructive pulmonar y disease, unspecified COPD type Patient is on nebulizer treatment at home and inhalers. He needs his oxygen 12/10. Have encouraged him to do this. Portable oxygen equipment is not working. His will call [facility]. I have encouraged him when he sits in his recliner to start doing his oxygen on a regular basis. He does not really like to do this because I just do not want to. Essential hypertension Blood pressure un bmabi good control Unspecified fall, subsequent encounter Has not been doing home health physical therapy after he completed the program about 6 weeks ago. Recurrent falls and hypoxia. Is at risk for problems and his fall would give me a sign that he would benefit from another round of PT Unspecified place in unspeci fied non-institutional (private) residence as the place of occurrence of the external cause I performed a vtsd-uv-[id number] evaluation on this patient today, and determined that this patient cannot leave home without significant difficulty based on pain, immobility and ataxia issues. They qualify for home health evaluation for PT/OT evaluation as well as nursing care, home safety and follow-up medical care. Hospital discharge follow-up I reviewed ER notes available from emergency department. Reviewed labs, reviewed discharge plan, personally reconciled medication. Chronic respiratory failure with hypoxia Instructions for oxygen as noted above Referrals Referral Date Details 12/15/2024 12/15/2024, [facility] for PT OT evaluation at home, [address] [place], [address], Next Appt Details Follow Up: prn, Reason: Provider Name:Maurilio Hi, 01/17/2025 02:30:00 PM, [address] [facility], [address], [place], [address], Provider Name:Maurilio Hi, 02/07/2025 12:30:00 PM, [address] [facility], [address], [place], [address], Progress Notes * Reji WELLER: [birth year] (74 yo M)Acc No.[id number]:12/15/2024 Progress Notes Patient: Reji CUADRA Provider: Abdiaziz Hi MD :[id number] A ge:74 Y S ex:Male Date:12/15/2024 Address:[address], [id number] Subjective: * Chief Complaints: * 1 . [facility] ER F/U- Ankles swollen and low O2 levels when walking. * HPI: g en: Here for evaluation after he had a fall at home on 12/09/2024. Fell at home try to get out of his chair. Had increasing pain and swelling in his legs and was taken to the emergency department at [facility] on 12/13. Extensive workup including labs, chest x-ray and CTs of abdomen, pelvis, chest, C-spine and brain as well as multiple x-rays were done. Lots of labs were done. None of these revealed any kind of actionable issues, he was given diuretics and the swelling improved. He is back for reevaluation. Does not do a lot at home. Sits in his recliner. Does not wear his oxygen unless he is going to bed. 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 * Family History: F ather: . M other: , diagnosed with Stroke. P aternal Grand Father: . P aternal Grand Mother: . M aternal Grand Father: . M aternal Grand Mother: . P aternal uncle: alive, one . P aternal aunt: alive. M aternal uncle: . M aternal aunt: alive. S iblings: alive, mild diabetes and mild heart disease. C roberten: alive, one , other son is healthy. [...] nostril) Nasally Twice a day , Taking CPAP MACHINE WITH ADULT SETUP , Taking Trelegy Ellipta 100 MCG-62.5 MCG-25 MCG/INH POWDER 1 INH INHALED ONCE A DAY , Taking Levocetirizine Dihydrochloride 5 MG Tablet 1 tab(s) orally once a day (in the evening) , Taking Tylenol 325 MG Tablet 2 tab(s) orally every 6 hours , Taking Carvedilol 3.125 MG Tablet 1 tab(s) orally 2 times a day , Taking MiraLax - POWDER FOR RECONSTITUTION DIRECTED ORALLY ONCE A DAY , Notes to Pharmacist: prn, Taking OXYGEN CONSERVER DIRECTED DX: J44.9 DIRECTED , Notes to Pharmacist: 2L, Taking Vitamin B1 100 MG Tablet 1 tab(s) orally once a day , Taking PROAIR HFA 90 MCG/INH AEROSOL INHALE 2 PUFFS BY MOUTH EVERY 4 HOURS NEEDED , Taking Bumetanide 1 MG Tablet 2tabs orally in the morning , Taking Atorvastatin Calcium 80 MG Tablet 1 tab(s) orally once a day , Taking Memantine HCl 10 MG Tablet 1 [...] applied topically 2 times a day , Taking Ciclopirox 8 % Kit 1 application at bedtime Externally Once a day , Taking Euthyrox 75 MCG Tablet 1 tab Orally Once a day , Taking Vitamin D (Ergocalciferol) 1.25 MG (57134 UT) Capsule 1 cap(s) orally every 2 weeks , Medication List reviewed and reconciled with the patient * Allergies: N .K.D.A. Objective: * Vitals: N urse: jl, Pain: 9, Temp: 97.6, Pulse O2: 76, RR: 20, HR: 78, BP: 116/70, Ht: 66.5, Wt: 266, BMI:42.29. * Examination: G eneral Examination: A lert. Oriented x 2. Lungs have diminished air entry but at baseline. Heart rate regular. Legs are less swollen per . They have trace ankle edema slightly worse on the left which is the side where he has had his fasciotomies. Pulses are diminished but present. No cord formation. Slightly tender throughout his edematous areas. Morbid obesity limits his exam. Can get up out of a chair by himself but it is very difficult for him to walk down the hallway because of dyspnea related to his hypoxia which is currently at 76 to 80% on room air with no oxygen. Assessment: * Assessment: 1. C hronic obstructive pulmonary disease, unspecified COPD type - J44.9 (Primary) ?2. E ssential hypertension - I10 3 . U nspecified fall, subsequent encounter - W19.XXXD [address] in unspecified non-institutional (private) residence as the place of occurrence of the external cause - Y92.009 5 . H ospital discharge follow-up - Z09 6 . C hronic respiratory failure with hypoxia - J96.11 Plan: * Treatment: 2. E ssential hypertension Notes: Blood pressure under good control 3. U nspecified fall, subsequent encounter Notes: Has not been doing home health physical therapy after he completed the program about 6 weeks ago. Recurrent falls and hypoxia. Is at risk for problems and his fall would give me a sign that he would benefit from another round of PT Referral To: Reason:Care tenders home health for PT OT evaluation at home 4. U nspecified place in unspecified non-institutional (private) residence as the place of occurrence of the external cause Notes: I performed a doky-uy-yyac evaluation on this patient today, and determined that this patient cannot leave home without significant difficulty based on pain, immobility and ataxia issues. They qualify for home health evaluation for PT/OT evaluation as well as nursing care, home safety and follow-up medical care. 5. H ospital discharge follow-up Notes: I reviewed ER notes available from emergency department. Reviewed labs, reviewed discharge plan, personally reconciled medication. 6. C hronic respiratory failure with hypoxia Notes: Instructions for oxygen as noted above * Procedure Codes: G 2211 Complex e/m visit add on, 1111F [facility]CH[facility] MED/CURRENT MED MERGE * Follow Up: p rn * * Sign off status: Completed true * Provider: Abdiaziz Hi MD Date: 0 12/15/2024 Generated for Printi ng/Lisa/eTransmitting on: 1 12:48 PM EDT History and Physical Notes * HPI (History of Present Illness) Category Sub-Category Detail Notes Category Not es gen Here for evaluation after he had a fall at home on 12/09/2024. Fell at home try to get out of his chair. Had increasing pain and swelling in his legs and was taken to the emergency department at [facility] on 12/13. Extensive workup including labs, chest x-ray and CTs of abdomen, pelvis, chest, C-spine and brain as well as multiple x-rays were done. Lots of labs were done. None of these revealed any kind of actionable issues, he was given diuretics and the swelling improved. He is back for reevaluation. Does not do a lot at home. Sits in his recliner. Does not wear his oxygen unless he is going to bed. Examination Category Sub-Category Detail Notes Category Not es General Examination Alert. Oriented x 2. Lungs have diminished air entry but at baseline. Heart rate regular. Legs are less swollen per . They have trace ankle edema slightly worse on the left which is the side where he has had his fasciotomies. Pulses are diminished but present. No cord formation. Slightly tender throughout his edematous areas. Morbid obesity limits his exam. Can get up out of a chair by himself but it is very difficult for him to walk down the hallway because of dyspnea related to his hypoxia which is currently at 76 to 80% on room air with no oxygen Consultation Request Notes Referral Date Referring Provider Referred Provider Not es 12/15/2024 Maurilio Hi [facility] for PT OT evaluation at home
--- OUTSIDE RECORDS SUMMARY | 2025-01-01 08:30 | XMS_ITS ---
Author Organization [facility] Address [address] [place] [address] Care Team Providers Care Truck Hopper Name Role Phone Maurilio Hi Primary Care Provider [phone] Allergies No Known Allergies REASON FOR VISIT 2 month follow up, Short term memory is getting worse, tingling in hands, restless leg and lower back pain Medications Medication SIG (Take, Route, Frequency, Duration) Notes Start Date End Date Status Vitamin D (Ergocalciferol) 1.25 MG (07477 UT) 1 cap(s) orally every 2 weeks; Duration: 30 days Active Ciclopirox 8 % 1 application at bed time Externally Once a day; Duration: 90 days 10/30/2024 Active Euthyrox 75 MCG 1 tab Orally Once a day; Duration: 90 days Active Senna 8.6 MG 1 tab(s) orally once a day (at bedtime); Duration: 90 days Active Clobetasol Propionate 0.05 % 1 vasyl appli ed topically 2 times a day; Duration: 14 days 05/22/2024 Active Atorvastatin Calcium 80 MG 1 tab(s) oral ly once a day; Duration: 30 days Active Memantine HCl 10 MG 1 tab orally twice a day; Duration: 30 days Active Apixaban 5 MG as directed orally 2 times a day Active Citalopram Hydrobromide 20 MG 1 tab(s) orally once a day; Duration: 90 days Active metOLazone 5 MG 1 tab(s) orally once a day; Duration: 30 days 05/18/2024 Active PROAIR HFA 90 MCG/INH INHALE 2 PUFFS BY MOUTH EVERY 4 HOURS NEEDED; Duration: 50 Active Bumetanide 1 MG 2tabs orally in the morning; Duration: 30 days Active OXYGEN CONSERVER DIRECTED DX: J44. 9 DIRECTED 2L 08/09/2017 Active Vitamin B1 100 MG 1 tab(s) orally once a day; Duration: 7 day(s) Active MiraLax - DIRECTED ORALLY O NCE A DAY prn Active CPAP MACHINE WITH ADULT SETUP Active Carvedilol 3.125 MG 1 tab(s) orally 2 ti mes a day Active Tylenol 325 MG 2 tab(s) orally ever y 6 hours Active Trelegy Ellipta 100 MCG-62.5 MCG-25 MCG/INH 1 INH INHALED ONCE A DAY A ctive Levocetirizine Dihydrochloride 5 MG 1 tab(s) orally once a day (in the evening) Active Xhance 93 MCG/ACT 2 sprays (1 spray in each nostril) Nasally Twice a day Active Eliquis 5 MG as directed Orally Active Immunizations Vaccine Route Administration Date Status Comme nts Fluzone High Dose IM Intramuscular 01/01/2025 Administered Social History Tobacco Use: Social History Observation Description Date Details (start date - stop date) Former Smoker NA - NA Smoking: Question Answer Notes Are you a: former smoker How long has it been since you last smoked? 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) Active confirmed Vital Signs Temperature 97.9 degrees Fahrenheit 01/02/20 25 Blood pressure systolic 124 mm Hg 01/02/20 25 Blood pressure diastolic 84 mm Hg 025 Heart Rate 76 /min 01/01/2025 Height 66.5 in 01/01/2025 Weight 265.8 lbs 01/01/2025 BMI 42.25 kg/m2 01/01/2025 Encounters Encounter Location Date Provider Diagnosis [facility] [address] [place], [place] [address] 01/01/2025 Maurilio Hi Neuropathy of upper extremity, unspecified laterality G56.90 ; Essential hypertension I10 ; Diastolic CHF with preserved left ventricular function, NYHA class 2 I50.30 and Immunization(s) administered Z23 Assessments Encounter Date Diagnosis (ICD Code) Assessment Notes Treatment Notes Treatment Clinical Notes Section Notes 01/01/2025 Neuropathy of upper extremity, unspecified laterality (ICD-10 - G56.90) Patient most likely has bilateral carpal tunnel. Interestingly he has an appointment in 2 days with neurology but he sees neurology here for sleep apnea. We have put in a referral to ask if that appointment also address his upper extremity neuropathy as they have EMG capability and they have agreed to this. Patient knows about his appointment in 2 days. 01/01/2025 Essential hypertension (ICD-10 - I10) Good blood pressure control, no change in plan 01/01/2025 Diastolic CHF with preserved left ventricular function, NYHA class 2 (ICD-10 - I50.30) Clinically euvolemic. No fluid overload. Labs reviewed from last visit showing stable kidney and liver function. I will see him in February with labs at that point 01/01/2025 Immunization(s) administered (ICD-10 - Z23) Plan Of Treatment Treatment Notes Assessment Notes Neuropathy of upper extremit y, unspecified laterality Patient most likely has bilateral carpal tunnel. Interestingly he has an appointment in 2 days with neurology but he sees neurology here for sleep apnea. We have put in a referral to ask if that appointment also address his upper extremity neuropathy as they have EMG capability and they have agreed to this. Patient knows about his appointment in 2 days. Essential hypertension Good blood pressu re control, no change in plan Diastolic CHF with preserved left ventricular function, NYHA class 2 Clinically euvolemic. No fluid overload. Labs reviewed from last visit showing stable kidney and liver function. I will see him in February with labs at that point Next Appt Details Follow Up: prn, Reason: Provider Name:Maurilio Hi, 01/17/2025 02:30:00 PM, [address] [facility], [address], [place], [address], Provider Name:Maurilio Hi, 02/07/2025 12:30:00 PM, [address] [facility], [address], [place], [address], Progress Notes * Reji WELLER: [birth year] (74 yo M)Acc No.[id number]:01/01/2025 Progress Notes Patient: Reji CUADRA Provider: Abdiaziz Hi MD :1950 A ge:74 Y S ex:Male Date:01/01/2025 Address:[address], [id number] Subjective: * Chief Complaints: * 1 . 2 month follow up. 2. Short term memory is getting worse, tingling in hands, restless leg and lower back pain. * HPI: g en: Here for follow-up of his medical problems. As usual, has a litany of complaints. Most of them today centered around upper extremity pain, numbness and tingling. Reports that he feels like he has neuropathy. He is wearing some carpal tunnel braces but he states they do not help. No falls, no other issues. Legs hurt, but he is doing PT in the L leg where he had his fasciotomy. Breathing is about the same as normal. * Medical History: P ulmonary Embolism, blood [...] , Taking Vitamin D (Ergocalciferol) 1.25 MG (62593 UT) Capsule 1 cap(s) orally every 2 weeks , Medication List reviewed and reconciled with the patient * Allergies: N .K.D.A. Objective: * Vitals: N urse: KJ, Pain: 5, Temp: 97.9, RR: 20, HR: 76, BP: 124/84, Ht: 66.5, Wt: 265.8, BMI:42.25. * Examination: G eneral Examination: A ppears chronically ill but actually appears better than normal in regards to breathing status and overall alertness and gait. Legs look great for him, with only 1+ swelling on the left side and trace on the right side. His hands are trembling and in the carpal tunnel braces. Lungs are clear and well-expanded, O2 saturation 98% on room air. Heart rate regular. Assessment: * Assessment: 1. N europathy of upper extremity, unspecified laterality - G56.90 (Primary) 2 . E ssential hypertension - I10 3 . D iastolic CHF with preserved left ventricular function, NYHA class 2 - I50.30 4 . I mmunization(s) administered - Z23? Plan: * Treatment: 2. E ssential hypertension Notes: Good blood pressure control, no change in plan 3. D iastolic CHF with preserved left ventricular function, NYHA class 2 Notes: Clinically euvolemic. No fluid overload. Labs reviewed from last visit showing stable kidney and liver function. I will see him in February with labs at that point * Immunizations: Fluzone High Dose : 0.7 mL (Route: Intramuscular) given by MYNOR Alvarez on Right Arm (Immunization(s) administered) * Procedure Codes: 9 0662 Influenza High Dose Vaccine >65 Years Old, Units: 1.40 , G0008 ADMINISTRATION-FLU VACCINE MEDICARE ONLY, G2211 Complex e/m visit add on * Follow Up: p rn * * Sign off status: Completed true * Provider: Abdiaziz Hi MD Date: Generated for Tierney abad/Lisa/Ricardosmitting on: 12:48 PM EDT History and Physical Notes * HPI (History of Present Illness) Category Sub-Category Detail Notes Category Not es gen Here for follow-up of his medical problems. As usual, has a litany of complaints. Most of them today centered around upper extremity pain, numbness and tingling. Reports that he feels like he has neuropathy. He is wearing some carpal tunnel braces but he states they do not help. No falls, no other issues. Legs hurt, but he is doing PT in the L leg where he had his fasciotomy. Breathing is about the same as normal Examination Category Sub-Category Detail Notes Category Not es General Examination Appears chronically ill but actually appears better than normal in regards to breathing status and overall alertness and gait. Legs look great for him, with only 1+ swelling on the left side and trace on the right side. His hands are trembling and in the carpal tunnel braces. Lungs are clear and well-expanded, O2 saturation 98% on room air. Heart rate regular.
--- OUTSIDE RECORDS SUMMARY | 2025-01-17 12:49 | XMS_ITS | Data Portability ---
[facility] [place] Address [address] [place] [address] Assessment No assessment recorded. Plan of Treatment [...] abdom en No observ ation record ed. [email or web address] Not Available 2023 15:51:53 Result Notes None recorded. Procedures Surgical History Date Name Laterality Status Provider Name and Address Organization Details Recorded Time 03/22/19 19 Joint Replacement completed Thierry HAMLIN - [facility] [place] 10/28/2023 14:08:33 03/22/19 18 Colonoscopy completed Thierry HAMLIN - [facility] [place] 10/28/2023 14:08:33 03/22/19 18 Hip Surgery completed Thierry HAMLIN - [facility] [place] 10/28/2023 14:08:33 03/22/19 05 LASIK completed Thierry HAMLIN - [facility] [place] 10/28/2023 14:08:33 03/22/18 85 Back Surgery completed Thierry HAMLIN - [facility] [place] 10/28/2023 14:08:33 03/22/18 62 Other completed Thierry HAMLIN - [facility] [place] 10/28/2023 14:08:33 01/01/19 62 Appendectomy completed Thierry HAMLIN - [facility] [place] 10/28/2023 14:08:33 03/22/18 55 Tonsillectomy/Ad enoidectomy completed Thierry HAMLIN - [facility] [place] 10/28/2023 14:08:33 03/22/18 54 Splenectomy completed Thierry HAMLIN - [facility] [place] 10/28/2023 14:08:33 Imaging Results None recorded. Procedure [...] blood by Pulse oximetry Heart rate Systolic And Diastolic Provider Name and Address Organization Details Last Updated DateTime 984152. 65 g 42.6 kg/m2 165.1 cm 98.4 [degF] 88 % 88 % 98 /min 124/64 mm[Hg] Thierry PATEL [facility] [place] 14:13:24 Social History Question Answer Notes LastModified by Organizat ion Details LastModified Time Tobacco Smoking Status Never Smoker Thierry Tunde gonzalez, [place] PATEL [facility] [place] 10/28/2023 14:08:27 Do You Have An Advance Directive? No Information not available 10/28/2023 Are You Blind Or Do You Have Difficulty Seeing? No [email or web address] Information not available 10/28/2023 What Was The Date Of Your Most Recent Tobacco Screening? 10/27/2023 [email or web address] Information not available 10/28/2023 Are You Passively Exposed To Smoke? No [email or web address] Information not available 10/28/2023 How Much Tobacco Do You Smoke? No Information not available 10/28/2023 How Many Years Have You Smoked Tobacco? 0 [email or web address] Information not available 10/28/2023 Sex: Male Functional Status Question Answer Note LastModified by Organizat ion Details LastModified Time Do you use any illicit or recreational drugs? No [email or web address] Information not available 10/28/2023 What is your level of alcohol consumption? Moderate Information not available 10/28/2023 Do you or have you ever used smokeless tobacco? Never used smokeless tobacco [email or web address] Information not available 10/28/2023 What is your exercise level? Occasional [email or web address] Information not available 10/28/2023 Mental Status Question Answer Note LastModified by Organization D etails LastModified Time Do you feel stressed (tense, restless, nervous, or anxious, or unable to sleep at night)? [id number] [email or web address] Information not available 10/28/2023 Family History Nothing Reported. Medical History Condition Response Obesity Y Clotting Disorder Y Arthritis Y High Cholesterol Y Congestive Heart Failure (CHF) Y Back Problems Y Deep Vein Thrombosis Y Hypertension Y Obstructive Sleep Apnea Y COPD Y Past Encounters Encounter ID Performer Location Encounter Start Date Encounter Closed Date Diagnosis/Indication Diagnosis SNOMED-CT Code Diagnosis ICD10 Code Diagnosis IMO Codes Diagnosis Note [id number] Nanda Knox MD [facility] Gen S[facility] [address] [place] [address] 10/28/2023 13:42:36 10/28/2023 14:42:05 [place] [id number] K80.20 Occasional ly symptomati c cholelithi asis. [...] structures . Chronic ob structive pulmonary disease 26726884 J44.9 COPD, not oxygen dependent. Patient walked down the hallway x2 on the way to the [facility] and is visibly short of air. Coronary arteriosclerosis [id number] I25.10 Known coronary artery disease, currently maintained [...] ID Guarantor Name 10/28/2023 1 MEDICARE-[place] (MEDICARE) [facility] [id number] [facility] 10/28/2023 2 [employer]IG[employer] SUPPLEMENTAL - [employer] HE[employer] AND LIFE INSURANCE (MEDICARE SUPPLEMENT) [facility] [id number] [facility] Notes Date Note Type Note Provider Name [...] pain with extensive workup with cardiology in [place]. Per the last cardiology note from July 2023, he was recommended to undergo cardiac catheterization with his normal microfilm operator at [facility]. Patient states that he has not been contacted regarding this. Nanda Knox MD [address] [place] [address], [place], [address], [facility] [place] [facility] [place] 10/28/2023 15:53:21
--- OUTSIDE RECORDS SUMMARY | 2025-01-17 12:49 | XMS_ITS | Clinical Summary ---
[facility] Organization [facility] Address [address] [place] [address] Care Team Providers Care Application Administrator Name Role Phone Lidya Douglas Primary Care Provider Allergies No known active allergies Medications albuterol [...] tablet by mouth Daily. Active nystatin (MYCOSTATIN) 825652 UNIT/GM ointment Apply 1 Application topically to [...] or training? Not on file Preferred Language Luxembourgish 02/22/2024 Sex and Gender Information Value Date [...] TEST 1997 FIT Testing (1 year) 1997 COVID-19 Vaccine (3 - Modern a risk series) 03/18/2021 02/18/2021, 07/03/2020, 06/05/2020 ANNUAL WELLNESS VISIT 02/21/2024 HEPATITIS C SCREENING 02/21/2024 INFLUENZA VACCINE 10/20/2024 12/31/2022, , 01/05/2020, Additional history exists COLONOSCOPY 03/22/2027 03/22/2017 COLORECTAL CANCER SCREENING 03/22/2027 TDAP/TD VACCINES (2 - Td or Tdap) 03/18/2030 020 Pneumococcal Vaccine 50+ Completed 019, 12/08/2017, 12/04/2016 ZOSTER VACCINE Completed 05/17/2020, 02/20, 12/02/2016 AAA SCREEN ONCE Completed 03/16/2024 Insurance 2023 [place] G[place]GO [id number] [employer] NON PAR MEDICARE A & B Member Subscriber Plan / Payer (Ef fective 2017-Present) Name:Reji Carrillo Member ID:[id number] Relation to Subscriber:Self Name:Reji Carrillo Subscriber ID:[id number] Payer ID:[id number] Group ID:Not on file Type:Not on file Address: [address] [place] [id number] [facility] [id number] Care Teams Application Administrator Relationship Specialty Start Date End Date Lidya Douglas PA [address] [place] [address] PCP - General Physician Toddler Nanny 02/22/24
--- OUTSIDE RECORDS SUMMARY | 2025-01-17 12:49 | XMS_ITS | Referral Summary ---
Author Organization [employer] ([place], [place], [place], [place]) Address [address] [place] [address] Care Team Providers Care Biology Teacher Name Role Phone Skyler Guerra MD Unavailable [phone] Randi Baumann MD Unavailable [phone] Humera Kelley Unavailable Provider, Not In System SUPERVISOR ESTERS AND EMULSIFIERS Unavailable Sabine vailable Niels Dawn MD Unavailable [phone] Giovanni Cerrato SUPERVISOR [employer]IERS Unavailable [phone] Grady English MD Unavailable Lidya Douglas PA-C Primary Care Provider [phone] Hilda Jama SUPERVISOR [employer] Unavailable [phone] Allergies No known active allergies Medications albuterol [...] Date Vahid rded Speak language other than Finnish at home Not on file 04/03/2023 Want [...] Not on file Insurance 2023 Y[address] PARKER [id number] [place] [address] Care Teams Biology Teacher Relationship Specialty Start Date End Date Lidya Douglas PA-C [address] [place] [address] PCP - General 08/12/23 Skyler Guerra MD [address] [place] [address] [place] [address] Data Modeler Pulmonary Disease 10/28/22 Randi Baumann MD [address] [place] [address] Consulting Physician General Internal Medicine 10/28/22 Humera Kelley [address] [place] [address] Neurologist Neurology 10/28/22 Provider, Not In System, SUPERVISOR [employer] [place] Referring Physician Cardiology 10/28/22 Niels Dawn MD [address] [facility] [address] [place] [address] Surgeon Cardiothoracic Surgery 11/03/22 Giovanni Cerrato, SUPERVISOR [employer] [address] [facility] [address] [place] [address] Nurse Practitioner Cardiology 06/10/23 Grady English MD [address] [facility] [place] [id number] Interventional Cardiology 06/15/23 Hilda Jama, SUPERVISOR [employer]ERS [address] [facility] [address] [place] [address] Cardiology 08/17/23
--- OUTSIDE RECORDS SUMMARY | 2025-01-17 12:50 | XMS_ITS | Clinical Summary ---
Author Organization [facility] Address [address] [place] [address] Care Team Providers Care Epic Cupid Analyst Name Role Phone Naresh Moura MD Primary Care Provider [phone] Allergies No known active allergies Medications albuterol [...] day. Active ergocalciferol (Vitamin D-2) 1.25 MG (13862 UT) capsule Take 1 capsule (50,000 Units) [...] any time in the past 12 m [facility], were you homeless or living in a usp (including now)? 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 Yes Care Teams Epic Cupid Analyst Relationship Specialty Start Date End Date Naresh Moura MD [address] [place] [address] PCP - General 08/02/20
--- OUTSIDE RECORDS SUMMARY | 2025-01-17 12:50 | XMS_ITS | Clinical Summary ---
Author Organization [employer] ([place], [place], [place], [place]) Address [address] [place] [address] Care Team Providers Care Nail Mill Worker Name Role Phone Skyler Guerra MD Unavailable [phone] Randi Baumann MD Unavailable [phone] Humera Kelley Unavailable Provider, Not In System TANK CHARGER Unavailable Sabine vailable Niels Dawn MD Unavailable [phone] Giovanni Cerrato TANK CHARGER Unavailable [phone] Grady English MD Unavailable Lidya Douglas PA-C Primary Care Provider [phone] Hilda Jama TANK CHARGER Unavailable Allergies No known active allergies Medications [...] Date Vahid rded Speak language other than [place] at home Not on file 04/03/2023 Want [...] series) 2012 Medicare Initial AWV [id number] 09/20/2018 Falls Risk Screening 03/22/2024 Tobacco Cessation Counseling and Screening (12+) 08/16/2024 08/17/2023 COVID-19 VACCINE (2024-2 6 season) 2024 02/18/2021, 07/03/2020, 06/05/2020 Influenza Vaccine (#1) 2024 3, 11/28/2021, 12/26/2020, Additional history exists DTAP/TDAP/TD VACCINES (2 - T d or Tdap) 03/18/2030 03/18/2020 Pneumococcal 50+ years Completed 12/20/2018, 2017 Shingles Vaccine (Zoster) Completed 2020, 03/18/2020, 12/02/2016 Insurance [address] [place] [id number] [place] [address] [address] Care Teams Nail Mill Worker Relationship Specialty Start Date End Date Lidya Douglas PA-C [address] [place] [address] PCP - General 08/12/23 Skyler Guerra MD [address] [place] [phone] Multi Share Program Coordinator Pulmonary Disease 10/28/22 Randi Baumann MD [address] [place] [address] Consulting Physician General Internal Medicine 10/28/22 Humera Kelley [address] [place], [place] [id number] Neurologist Neurology 10/28/22 Provider, Not In System, TANK CHARGER [place] Referring Physician Cardiology 10/28/22 Niels Dawn MD [address] [facility] [address] [place] [address] Surgeon Cardiothoracic Surgery 11/03/22 Giovanni Cerrato, TANK CHARGER [address] [facility] [address] [place], [place] [id number] Nurse Practitioner Cardiology 06/10/23 Grady English MD [address] [facility] [place] [phone] Interventional Cardiology 06/15/23 Hilda Jama, TANK CHARGER [address] [facility] [address] [place], [place] [id number] Cardiology 08/17/23
--- OUTSIDE RECORDS SUMMARY | 2025-01-17 12:50 | XMS_ITS | Patient Health Record ---
Author Organization [facility] Address [address] [facility] [address] [place] [address] Care Team Providers Care Interlocking Machine Operator Name Role Phone Maurilio Hi Primary Care Provider Migration, Provider Unavailable Unavailable Allergies No Known Allergies Results Component Value Reference Range Notes THYROID PANEL WITH TSH (7444 ) Reviewed date:05/24/2024 11:17:01 AM Interpretation: Performing Lab:STEPHAN [employer] [id number] Best Five [id number] Fredi Mendoza Notes/Report: NON-FASTING; NON-FASTING; NON-FASTING; NON-FASTING; NON-FAST T3 UPTAKE 27 22-35 % T4 (THYROXINE), TOTAL 6.6 4.9-10.5 mcg/dL FREE T4 INDEX (T7) 1.8 1.4-3.8 TSH 1.94 0.40-4.50 mIU/L THYROID PANEL WITH TSH (7444 ) Reviewed date:11/03/2024 08:28:23 AM Interpretation: Performing Lab:STEPHAN [employer]Pointe1355 [employer] [place], Cylon ControlsQzfvMF[address] Fredi Mendoza Notes/Report: NON-FASTING; NON-FASTING; NON-FASTING; NON-FASTING; NON-FAST T3 UPTAKE 27 22-35 % T4 (THYROXINE), TOTAL 5.4 4.9-10.5 mcg/dL FREE T4 INDEX (T7) 1.5 1.4-3.8 TSH 6.90 0.40-4.50 mIU/L LIPID PANEL, STANDARD (7600) Reviewed date:11/03/2024 08:28:23 AM Interpretation: Performing Lab:[facility]PHAN [facility]ore-Yasir Manuele[address] [facility], [place] SmithLpmdHG[address] Fredi Mendoza Notes/Report: NON-FASTING; NON-FASTING; NON-FASTING; NON-FASTING; NON-FAST CHOLESTEROL, TOTAL 113 <200 mg/dL HDL CHOLESTEROL 32 > OR = 40 mg/dL TRIGLYCERIDES 158 <150 mg/dL LDL-CHOLESTEROL 57 Reference range: <100 Desirable range <100 mg/dL for primary prevention; <70 mg/dL for patients with CHD or diabetic patients with > or = 2 CHD risk factors. LDL-C is now calculated using the Eri calculation, which is a validated novel method providing better accuracy than the Friedewald equation in the estimation of LDL-C. Gabriel NEAL et al. DEANDRE. 2013;310(19): 6336-9805 (http://education.Searchles.[place]/faq/CZM331) CHOL/HDLC RATIO 3.5 <5.0 (calc) NON HDL CHOLESTEROL 81 <130 mg/dL (calc) factor, treating to a non-HDL-C goal of <100 mg/dL (LDL-C of <70 mg/dL) is considered a therapeutic option. For patients with diabetes plus 1 major ASCVD risk COMPREHENSIVE METABOLIC PANE L (REFL) (75586) Reviewed date:11/03/2024 08:28:23 AM Interpretation: Performing Lab:STEPHAN S[facility]ore-Yasir Manuele13[address] [facility], Yasir ManuelEzjdHI[address] Fredi Mendoza Notes/Report: NON-FASTING; NON-FASTING; NON-FASTING; NON-FASTING; [...] 18 10-35 U/L ALT 16 9-46 U/L COMPREHENSIVE METABOLIC PANE L (02271) Reviewed date:05/24/2024 11:17:01 AM Interpretation: Performing Lab:STEPHAN, [employer] [id number] [employer] WestWing, Cylon ControlsVlebDT[address] Fredi Mendoza Notes/Report: NON-FASTING; NON-FASTING; NON-FASTING; NON-FASTING; [...] 20 10-35 U/L ALT 14 9-46 U/L BASIC METABOLIC PANEL (64185 ) Reviewed date:08/11/2024 12:39:58 PM Interpretation: Performing Lab:STEPHAN, [facility] [address], EcwidXtawMY[address] Fredi Mendoza Notes/Report: NON-FASTING GLUCOSE 96 65-99 mg/dL Fasting reference interval UREA NITROGEN (BUN) 23 7-25 mg/dL CREATININE 1.35 0.70-1.28 mg/dL EGFR 56 > OR = 60 mL/min/1.73m2 BUN/CREATININE RATIO 17 6-22 (calc) SODIUM 142 135-146 mmol/L POTASSIUM 4.1 3.5-5.3 mmol/L CHLORIDE 102 98-110 mmol/L CARBON DIOXIDE 31 20-32 mmol/L CALCIUM 9.7 8.6-10.3 mg/dL MAGNESIUM (622) Reviewed date:05/24/2024 11:17:01 AM Interpretation: Performing Lab:STEPHAN ContactPointe[address], VGo CommunicationsYsceJB[address] Fredi Mendoza Notes/Report: NON-FASTING; NON-FASTING; NON-FASTING; NON-FASTING; NON-FAST MAGNESIUM 2.1 1.5-2.5 mg/dL MAGNESIUM (622) Reviewed date:11/03/2024 08:28:23 AM Interpretation: Performing Lab:STEPHAN [address]Pointe[address], Cylon ControlsQuxbIQ[address] Fredi Mendoza Notes/Report: NON-FASTING; NON-FASTING; NON-FASTING; NON-FASTING; NON-FAST MAGNESIUM 2.2 1.5-2.5 mg/dL PHOSPHATE ( PHOSPHORUS) (7 18) Reviewed date:11/03/2024 08:28:23 AM Interpretation: Performing Lab:STEPHAN [address]inte[address], Cylon ControlsXuztNH[address] Fredi Mendoza Notes/Report: NON-FASTING; NON-FASTING; NON-FASTING; NON-FASTING; NON-FAST PHOSPHATE ( PHOSPHORUS) 3.6 2.1-4.3 mg/dL CBC (INCLUDES DIFF/PLT) (639 9) Reviewed date:11/03/2024 08:28:23 AM Interpretation: Performing Lab:STEPHAN [address], Cylon ControlsJfmgOV[address] Fredi Mendoza Notes/Report: NON-FASTING; NON-FASTING; NON-FASTING; NON-FASTING; [...] MPV 11.6 7.5-12.5 fL ABSOLUTE NEUTROPHILS 6657 0940-3326 cells/uL ABSOLUTE LYMPHOCYTES 7470 850-3900 cells/uL ABSOLUTE MONOCYTES 1760 200-950 cells/uL ABSOLUTE EOSINOPHILS 515 15-500 cells/uL ABSOLUTE BASOPHILS 199 0-200 cells/uL NEUTROPHILS 40.1 LYMPHOCYTES 45.0 MONOCYTES 10.6 EOSINOPHILS 3.1 BASOPHILS 1.2 CBC (INCLUDES DIFF/PLT) (639 9) Reviewed date:05/24/2024 11:17:02 AM Interpretation: Performing Lab:CB, [facility]-Yasir Manuele1355 [facility], Yasir SmithCcjpTJ[address] Fredi Mendoza Notes/Report: NON-FASTING; NON-FASTING; NON-FASTING; NON-FASTING; [...] MPV 12.0 7.5-12.5 fL ABSOLUTE NEUTROPHILS 8390 6348-1500 cells/uL ABSOLUTE LYMPHOCYTES 7489 850-3900 cells/uL ABSOLUTE MONOCYTES 1858 200-950 cells/uL ABSOLUTE EOSINOPHILS 534 15-500 cells/uL ABSOLUTE BASOPHILS 129 0-200 cells/uL NEUTROPHILS 45.6 LYMPHOCYTES 40.7 MONOCYTES 10.1 EOSINOPHILS 2.9 BASOPHILS 0.7 PROTHROMBIN TIME-INR (8847) Reviewed date:05/24/2024 11:17:02 AM Interpretation: Performing Lab:STEPHAN Solicore-Ecwide1355 [employer], Datil FisbDL[address] Fredi Mendoza Notes/Report: NON-FASTING; NON-FASTING; NON-FASTING; NON-FASTING; NON-FAST INR 1.1 Reference Range 0.9-1.1 Moderate-intensity Warfarin Therapy 2.0-3.0 Higher-intensity Warfarin Therapy 3.0-4.0 PT 11.8 9.0-11.5 sec educational purposes only.) For additional information, please refer to http://education.BeVocal/faq/IZH933 (This link is being provided for informational/ RPR (MONITOR) W/REFL TITER ( 799) Reviewed date:11/03/2024 08:28:23 AM Interpretation: Performing Lab:STEPHAN Solicore-Ecwide13[address] [employer] BlSportEmp[employer], Datil HqpyZL[address] Fredi Mendoza Notes/Report: NON-FASTING; NON-FASTING; NON-FASTING; NON-FASTING; NON-FAST RPR (MONITOR) W/REFL TITER NON-REACTIVE NON-REACTIVE HEMOGLOBIN A1c (496) Reviewed date:11/03/2024 08:28:24 AM Interpretation: Performing Lab:STEPHAN Solicore-Ecwide13[address] [employer], Cylon ControlsFlieRR[address] Fredi Mendoza Notes/Report: NON-FASTING; NON-FASTING; NON-FASTING; NON-FASTING; [...] and other VITAMIN B12/FOLATE, SERUM PA TROY (8765) Reviewed date:11/03/2024 08:28:24 AM Interpretation: Performing Lab:STEPHAN [employer] [id number] [employer], Cylon ControlsAtnpAV[address] Fredi Mendoza Notes/Report: NON-FASTING; NON-FASTING; NON-FASTING; NON-FASTING; NON-FAST VITAMIN B12 365 102-1412 pg/mL Please Note: Although the reference range [...] Low: <3.4 Borderline: 3.4-5.4 VITAMIN D,25-OH,TOTAL,IA (17 810) Reviewed date:11/03/2024 08:28:24 AM Interpretation: Performing Lab:STEPHAN [employer] [id number] [employer], Cylon ControlsPqdaXO[address] Fredi Mendoza Notes/Report: NON-FASTING; NON-FASTING; NON-FASTING; NON-FASTING; NON-FAST VITAMIN D,25-OH,TOTAL,IA 47 30-100 ng/mL http://education.Koinify/faq/ZBJ798 (This link is being provided for informational/ educational purposes only.) Vitamin D Status 25-OH Vitamin D: Deficiency: <20 ng/mL Insufficiency: 20 - 29 ng/mL Optimal: > or = 30 ng/mL For 25-OH Vitamin D testing on patients on D2-supplementation and patients for whom quantitation of D2 and D3 fractions is required, the QuestAssureD(TM) 25-OH VIT D, (D2,D3), LC/MS/MS is recommended: order code 30973 (patients >2yrs). See Note 1 Note 1 For additional information, please refer to Ultrasound : Abdomen Reviewed date:06/12/2024 11:42:24 AM Interpretation: Performing Lab: Notes/Report: Reason For Referral Reason Patient is having CT scan on Wednesday at [facility], see if they can do abdominal ultrasound on Wednesday morning Diagnosis 1 Right sided abdomina l pain (R10.9) Referral Organization [facility] Referring Provider First Name Maurilio Referring Provider Last Name Kolton Referring Provider Speciality Internal M edicine General Notes Jaime Powell 09/2024 10:11:51 AM > faxed to [facility] and they will add if they can Referral Priority Urgent Reason New PT - Zoroastrian? See if they can pick him up Diagnosis 1 Age-related physical debility (R54) Referral Organization [facility] Referring Provider First Name Maurilio Referring Provider Last Name Kolton Referring Provider Speciality Internal edicine Referred Provider Specialty [facility] General Notes Iwona Flores 2024 04:15:51 PM >sent to [facility] Referral Priority Routine Reason Dr. Mendoza Currently being d/c from [facility] physical therapy but pain is still an 10/29. Please eval Diagnosis 1 Back pain (M54.9) Referral Organization [facility] Referring Provider First Name Maurilio Referring Provider Last Name Kolton Referring Provider Speciality Internal edicine Referred Organization [facility] Referred Address [address],[address],[place] Referred Provider Specialty Pain Managem ent General Notes Iwona Flores 2024 12:48:34 PM >Sent to Dr. Mendoza Referral Priority Routine Reason Care tenders home he alth for PT OT evaluation at home Diagnosis 1 Unspecified fall, kwong bsequent encounter (W19.XXXD) Referral Organization [facility] Referring Provider First Name Maurilio Referring Provider Last Name Kolton Referring Provider Speciality Internal edicine Referred Organization [facility] Referred Address [address] [facility], [place], [place],[address], Referred Provider Specialty [facility] General Notes Iwona Flores 2024 12:22:02 PM >sent to [facility] Referral Priority Routine Medications Medication SIG (Take, Route, Frequency, Duration) Notes Start Date End Date Status Apixaban 5 MG as directed orally 2 times a day Active Xhance 93 MCG/ACT 2 sprays (1 spray in each nostril) Nasally Twice a day Active Atorvastatin Calcium 80 MG 1 tab(s) oral ly once a day; Duration: 30 days Active CPAP MACHINE WITH ADULT SETUP Active Memantine HCl 10 MG 1 tab orally twice a day; Duration: 30 days Active PROAIR HFA 90 MCG/INH INHALE 2 PUFFS BY MOUTH EVERY 4 HOURS NEEDED; Duration: 50 Active Vitamin D (Ergocalciferol) 1.25 MG (62369 UT) 1 cap(s) orally every 2 weeks; Duration: 30 days Active Eliquis 5 MG as directed Orally Active Bumetanide 1 MG 2tabs orally in the morning; Duration: 30 days Active OXYGEN CONSERVER DIRECTED DX: J44. 9 DIRECTED 2L 08/09/2017 Active Ciclopirox 8 % 1 application at bed time Externally Once a day; Duration: 90 days 10/30/2024 Active Vitamin B1 100 MG 1 tab(s) orally once a day; Duration: 7 day(s) Active Euthyrox 75 MCG 1 tab Orally Once a day; Duration: 90 days Active Carvedilol 3.125 MG 1 tab(s) orally 2 ti mes a day Active Senna 8.6 MG 1 tab(s) orally once a day (at bedtime); Duration: 90 days Active MiraLax - DIRECTED ORALLY O NCE A DAY prn Active Clobetasol Propionate 0.05 % 1 vasyl appli ed topically 2 times a day; Duration: 14 days 05/22/2024 Active Tylenol 325 MG 2 tab(s) orally ever y 6 hours Active Trelegy Ellipta 100 MCG-62.5 MCG-25 MCG/INH 1 INH INHALED ONCE A DAY A ctive Citalopram Hydrobromide 20 MG 1 tab(s) orally once a day; Duration: 90 days Active Levocetirizine Dihydrochloride 5 MG 1 tab(s) orally once a day (in the evening) Active metOLazone 5 MG 1 tab(s) orally once a day; Duration: 30 days 05/18/2024 Active Immunizations Vaccine Route Administration Date Status Comme nts Boostrix Unknown 03/18/2020 Administered Covid Moderna Unknown 06/05/2020 Administered Covid Moderna Unknown 07/03/2020 Administered Fluzone High Dose IM Intramuscular 12/20/2018 Administered Fluzone High Dose IM Intramuscular 01/05/2020 Administered Fluzone High Dose IM Intramuscular 12/26/2020 Administered Fluzone High Dose IM Intramuscular 01/01/2025 Administered Influenza-Fluzone 3+years (NON-MEDICARE) IM Intramuscular 12/02/2016 [...] Notes Problem Vascular dementia without behavioral disturbance (94086235345917507 ) Vascular dementia 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) Active confirmed Problem Chronic pain (18934061) Other chronic pain (G89.29) Active confirmed Problem Chronic kidney disease due to hypertension (121008363617843) Hypertensive chronic kidney disease with stage 1 through stage 4 chronic kidney disease, or unspecified chronic kidney disease (I12.9) Active confirmed Problem Seasonal allergic rhinitis (209714641) Other seasonal allergic rhinitis (J30.2) Active confirmed Problem Allergic rhinitis (72402691) Other allergic rhinitis (J30.89) Active confirmed Problem Chronic respiratory failure (16877988) Chronic respiratory failure with hypoxia (J96.11) Active confirmed Problem Sciatica (66783142) Lumbago with sciatica, unspecified side (M54.40) Active confirmed Problem Sciatica (51439699) Lumbago with sciatica, left side (M54.42) Active confirmed Problem Frailty (finding) (423179897) Age-related physical debility (R54) Active confirmed Problem Mixed anxiety and depressive disorder (298657113) Depression with anxiety (F41.8) Active confirmed Problem Paresthesia (47023691) Paresthesia (R20.2) Active confirmed Problem Vitamin D deficiency (93896753) Vitamin D deficiency (E55.9) Active confirmed Problem Cerebrovascular disease (42295757) Cerebrovascular disease (I67.9) Active confirmed Problem Hyperlipidemia (18780946) Hyperlipidemia (E78.5) Active confirmed Problem Essential hypertension (16121833) Essential hypertension (I10) Active confirmed Problem Erectile dysfunction (disorder) (925642288) Erectile dysfunction, unspecified erectile dysfunction type (N52.9) Active confirmed Problem COPD - Chronic obstructive pulmonary disease (97071494) Chronic obstructive pulmonary disease, unspecified COPD type (J44.9) Active confirmed Problem Acquired hypothyroidism (615014730) Acquired hypothyroidism (E03.9) Active confirmed Problem Non-rheumatic mitral regurgitation (202836448) Non-rheumatic mitral regurgitation (I34.0) Active confirmed Problem Ataxia (00887849) Ataxia (R27.0) Active confirm ed Problem Chronic pulmonary embolism (144560974041841) Other chronic pulmonary embolism (I27.82) Active confirmed Problem Dysthymia (34895943) Dysthymia (F34.1) Active confirmed Problem Tricuspid valve disorder, non-rheumatic (299514414) Non-rheumatic tricuspid valve insufficiency (I36.1) Active confirmed Problem Obstructive sleep apnea syndrome (63901251) ISAAC (obstructive sleep apnea) (G47.33) Active confirmed Problem Atherosclerotic heart disease of [place] coronary artery without angina pectoris (939263796289833) Atherosclerotic heart disease (I25.10) Active confirmed Problem Dry eyes (153334772) Dry eyes (H04.123) Active confirmed Problem Multi-infarct dementia, uncomplicated (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, 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) Active confirmed Problem Left ventricular diastolic dysfunction (758342410) Diastolic CHF with preserved left ventricular function, NYHA class 2 (I50.30) Active confirmed Problem Aortic stenosis, non-rheumatic (232197800) Nonrheumatic aortic valve stenosis (I35.0) Active confirmed Problem History of cerebrovascular accident without residual deficits (902146709) History of CVA (cerebrovascular accident) (Z86.73) Active confirmed Problem Chronic diastolic heart failure (088666056) CHF NYHA class II, chronic, diastolic (I50.32) Active confirmed Problem Mild cognitive disorder (266097402) Mild cognitive impairment with memory loss (G31.84) Active confirmed Problem Mild major depression, single episode (66238911) Mild single current episode of major depressive disorder (F32.0) Active confirmed Problem Leukocytosis (778179929) Leukocytosis, unspecified type (D72.829) Active confirmed Problem Acute exacerbation of chronic obstructive airways disease (349747457) Acute exacerbation of chronic obstructive pulmonary disease (COPD) (J44.1) Active confirmed Problem Other acute pulmonary embolism with acute cor pulmonale (I26.09) Active confirmed Problem Chronic renal failure syndrome (85124134) Chronic kidney disease, unspecified CKD stage (N18.9) Active confirmed Problem Myocardial infarction due to demand ischemia (disorder) (57084238353054377 ) Myocardial infarction type 2 (I21.A1) Active confirmed Problem Thyroid enlargement (1222845) Thyroid enlargement (E04.9) Active confirmed Problem Laboratory test result abnormal (413990508) Abnormal laboratory test result (R89.9) Active confirmed Problem Dysthymia (76966666) Chronic major depressive disorder (F34.1) Active confirmed Problem Chronic hypoxemic respiratory failure (796632735) Chronic hypoxemic respiratory failure (J96.11) Active confirmed Problem Neuropathy of upper limb (disorder) (123070774) Neuropathy of upper extremity, 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) Active confirmed Problem Hypertensive heart failure (36943446) Hypertensive heart disease with congestive heart failure, unspecified heart failure type (I11.0) Active confirmed Problem Acute obliterating bronchiolitis (97194573) Acute obliterating bronchiolitis (J44.9) Active confirmed Problem Vascular dementi a with mood disturbance, unspecified dementia severity (F01.53) Active confirmed Vital Signs Heart Rate 76 /min 01/01/2025 Temperature 97.9 degrees Fahrenheit 01/01/2025 Oximetry 76 12/15/2024 Blood pressure diastolic 84 mm Hg 01/01/2025 Height 66.5 in 01/01/2025 Blood pressure systolic 124 mm Hg 01/01/2025 Weight 265.8 lbs 01/01/2025 BMI 42.25 kg/m2 01/01/2025 Encounters Encounter Location Date Provider Diagnosis [facility] [address] [place] [address] 06/24/2024 Provider Migration [facility] [address] [place] [address] 04/17/2024 Maurilio Hi Encounter for examination following treatment at hospital Z09 ; Nontraumatic compartment syndrome of left lower extremity M79.A22 ; Essential hypertension I10 ; Chronic kidney disease, unspecified CKD stage N18.9 and Hyperlipidemia E78.5 [facility] [address] [place] [address] 05/22/2024 Maurilioalex Hi Acquired aplastic anemia D61.89 ; History of CVA (cerebrovascular accident) Z86.73 ; Diastolic CHF with preserved left ventricular function, NYHA class 2 I50.30 ; Acquired hypothyroidism E03.9 ; Compartment syndrome of left lower extremity, sequela T79.A22S ; Facial rash R21 and Routine medical exam Z00.00 [facility] [address] [place] [address] 05/26/2024 Maurilio Besselina Right sided abdomina l pain R10.9 [facility] [address] [place] [facility] [address] [place] [address] 07/26/2024 Maurilioalex Hi Other chronic pulmon apollo embolism I27.82 ; Chronic kidney disease, unspecified CKD stage N18.9 ; CHF NYHA class II, chronic, diastolic I50.32 ; History of CVA (cerebrovascular accident) Z86.73 ; Essential hypertension I10 ; Chronic obstructive pulmonary disease, unspecified COPD type J44.9 ; Mild cognitive impairment with memory loss G31.84 ; Hyperlipidemia E78.5 and Age-related physical debility R54 [facility] [address] [place] [facility] [address] [place] [address] 08/09/2024 Maurilioalex Hi Diastolic CHF with preserved left ventricular function, NYHA class 2 I50.30 ; Seborrheic dermatitis L21.9 and Other seasonal allergic rhinitis J30.2 [facility] [address] [place] [facility] [address] [place] [address] 08/28/2024 Maurilioalex Hi Wound of left lower extremity, sequela S81.802S [facility] [address] [place] [address] 10/30/2024 Maurilio Besson Paresthesia R20.2 ; Toenail fungus B35.1 ; Encounter for weight management Z76.89 ; Other malaise R53.81 ; Other fatigue R53.83 ; Ataxia R27.0 ; Vitamin D deficiency E55.9 and Cerebrovascular disease I67.9 [facility] [address] [facility] [address] [place] [address] 12/15/2024 Maurilio Besson Chronic obstructive pulmonary disease, unspecified COPD type J44.9 ; Essential hypertension I10 ; Unspecified fall, subsequent encounter W19.XXXD ; Unspecified place in unspecified non-institutional (private) residence as the place of occurrence of the external cause Y92.009 ; Hospital discharge follow-up Z09 and Chronic respiratory failure with hypoxia J96.11 [facility] [address] [facility] [address] [place] [address] 01/01/2025 Maurilio Besson Neuropathy of upper extremity, unspecified laterality G56.90 ; Essential hypertension I10 ; Diastolic CHF with preserved left ventricular function, NYHA class 2 I50.30 and Immunization(s) administered Z23 [facility] [address] [facility] [address] [place] [address] 03/29/2024 Maurilio Besson [facility] [address] [facility] [address] [place] [address] 04/01/2024 Maurilio Besson [facility] [address] [place] [address] 04/13/2024 Maurilio Besson [facility] [address] [place] [address] 04/14/2024 Maurilio Besson [facility] [address] [facility] [address] [place] [address] 04/18/2024 Maurilio Besson [facility] [address] [facility] [address] [place] [address] 04/24/2024 Maurilio Besson [facility] [address] [address] 04/25/2024 Maurilio Besson [facility] [address] [place] [address] 05/01/2024 Maurilio Besson [facility] [address] [facility] [address] [place] [address] 05/15/2024 Maurilio Besson [facility] [address] [place] [address] 05/18/2024 Maurilio Besson [facility] [address] [facility] [address] [place] [address] 05/26/2024 Maurilio Besson [facility] [address] [place] [address] 06/12/2024 Maurilio Besson [facility] [address] [place] [address] 06/16/2024 Maurilio Besson [facility] [address] [facility] [address] [place] [address] 08/17/2024 Muarilio Besson [facility] [address] [place] [address] 08/17/2024 Maurilio Besson [facility] [address] [place] [address] 08/21/2024 Maurilio Besson [facility] [address] [place] [address] 08/23/2024 Maurilio Besson [facility] [address] [place] [address] 08/31/2024 Maurilio Besson [facility] [address] [place] [address] 09/04/2024 Maurilio Besson [facility] [address] [place] [address] 09/06/2024 Maurilio Besson [facility] [address] [place] [address] 10/10/2024 Maurilio Besson [facility] [address] [facility] [place] [address] 10/31/2024 Maurilio Besson [facility] [address] [place] [address] 11/03/2024 [facility] [address] [address] [place] [address] 12/13/2024 [facility] [address] [place] [address] 05/18/2024 Maurilio Hi Assessments Encounter Date Diagnosis (ICD Code) Assessment [...] of at home. She specifically request the [employer] number and I gave this to her. She will investigate whether or not this is an option. Otherwise continue home health. Reviewed as noted 04/17/2024 Encounter for examination following treatment at hospital (ICD-10 - Z09) Patient developed RSV pneumonia and was transferred from [facility] to for higher acuity care. During his stay, he developed compartment syndrome and underwent fasciotomy. He was sent to [facility] for rehab. Since returning home, he is being seen by home health for wound care and dressing changes. His is interested in long term facility due to her struggling to take care of him. I gave them information for Latonia Garvey. 05/22/2024 History of CVA (cerebrovascular accident) (ICD-10 [...] then can consider terbinifine if no improvement. 12/15/2024 Essential hypertension (ICD-10 - I10) Blood pressure under good control 12/15/2024 Chronic obstructive pulmonary disease, unspecified COPD [...] because I just do not want to. 01/01/2025 Essential hypertension (ICD-10 - I10) Good blood pressure control, no change in plan 01/01/2025 Neuropathy of upper extremity, unspecified laterality [...] about his appointment in 2 days. 01/01/2025 Diastolic CHF with preserved left ventricular function, NYHA class 2 (ICD-10 - I50.30) Clinically euvolemic. No fluid overload. Labs reviewed from last visit showing stable kidney and liver function. I will see him in February with labs at that point 10/30/2024 Encounter for weight management (ICD-10 - Z76.89) Will repeat A1c today and then consider starting GLP-1 if A1c elevated. 12/15/2024 Unspecified fall, subsequent encounter (ICD-10 - W19.XXXD) Has not been doing home health physical therapy after he completed the program about 6 weeks ago. Recurrent falls and hypoxia. 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 They qualify for home health evaluation for PT/OT evaluation as well as nursing care, home safety and follow-up medical care. 01/01/2025 Immunization(s) administered (ICD-10 - Z23) 12/15/2024 Hospital discharge follow-up (ICD-10 - Z09) I reviewed ER notes available from emergency department. Reviewed labs, reviewed discharge plan, personally reconciled medication. 10/30/2024 Other fatigue (ICD-10 - R53.83) 07/26/2024 [...] help with irritation. Watched signs/symptoms of infection 12/15/2024 Chronic respiratory failure with hypoxia (ICD-10 - J96.11) Instructions for oxygen as noted above 10/30/2024 Ataxia (ICD-10 - R27.0) 10/30/2024 Vitamin [...] to in home PTOT I performed a fpxf-wu-qysg evaluation on this patient today, and determined that this patient cannot leave home without significant difficulty based on pain, immobility and ataxia issues. They qualify for home health evaluation for PT/OT evaluation as well as nursing care, home safety and follow-up medical care. 04/17/2024 Other Follow up in 3 weeks. 07/26/2024 Other Please note I spent over 30minutes in [facility] patient care Plan Of Treatment Pending Test [...] 07/04/2019 Next Appt Details Provider Name:Maurilio Hi, 01/17/2025 02:30:00 PM, [address] [facility] [address] [facility] [address], [address], [place], [address], Provider Name:Maurilio Hi, 02/07/2025 12:30:00 PM, [address] [facility] [address] [facility], [address], [place], [address], Insurance Providers Payer Name Payer Address Payer Phone Subscriber Number Group Number Insured Name Patient Relationship to Insured Coverage Start Date Coverage End Date [place] [address] [place] [address] [id number] Reji Carrillo Self - patient is the insured [employer] [address] [address] [place] [address] [phone] [id number] Reji Carrillo Self - patient is the [...]
== END 2025-01-16 23:59 | disposition home or self-care (01) ==
LOC: LAB.DROPOF 01-17 12:44
PROVIDERS: PCP Student in an Organized Health Care Education/Training Program; Visit Provider Student in an Organized Health Care Education/Training Program
DX: H66.92 Otitis media, unspecified, left ear (principal)
CPT/HCPCS: 87070

== ENCOUNTER 2025-01-17 15:24 | Outpatient (CLI) | payer MEDICARE, SELFPAY ==
--- OUTSIDE RECORDS SUMMARY | 2025-01-17 10:30 | XMS_ITS ---
Author Organization [facility] Address [address] [place] [address] Care Team Providers Care Electric Motor Analyst Name Role Phone Maurilio Hi Primary Care Provider [phone] Allergies No Known Allergies REASON FOR VISIT Possible gout-lt foot-great toe Medications Medication SIG (Take, Route, Frequency, Duration) Notes Start Date End Date Status Clobetasol Propionate 0.05 % 1 vasyl appli ed topically 2 times a day; Duration: 14 days 05/22/2024 Active Ciclopirox 8 % 1 application at bed time Externally Once a day; Duration: 90 days 10/30/2024 Active Colchicine 0.6 MG 1 tablet Orally Twice a day; Duration: 7 days As needed 01/17/2025 Active Euthyrox 75 MCG 1 tab Orally Once a day; Duration: 90 days Active Vitamin D (Ergocalciferol) 1.25 MG (09650 UT) 1 cap(s) orally every 2 weeks; Duration: 30 days Active Apixaban 5 MG as directed orally 2 times a day Active Senna 8.6 MG 1 tab(s) orally once a day (at bedtime); Duration: 90 days Active Citalopram Hydrobromide 20 MG 1 tab(s) orally once a day; Duration: 90 days Active metOLazone 5 MG 1 tab(s) orally once a day; Duration: 30 days 05/18/2024 Active Memantine HCl 10 MG 1 tab orally twice a day; Duration: 30 days Active OXYGEN CONSERVER DIRECTED DX: Cecilia44. 9 DIRECTED 2L 08/09/2017 Active Bumetanide 1 MG 2tabs orally in the morning; Duration: 30 days Active Atorvastatin Calcium 80 MG 1 tab(s) oral ly once a day; Duration: 30 days Active Vitamin B1 100 MG 1 tab(s) orally once a day; Duration: 7 day(s) Active PROAIR HFA 90 MCG/INH INHALE 2 PUFFS BY MOUTH EVERY 4 HOURS NEEDED; Duration: 50 Active MiraLax - DIRECTED ORALLY O NCE A DAY prn Active Carvedilol 3.125 MG 1 tab(s) orally 2 ti mes a day Active Trelegy Ellipta 100 MCG-62.5 MCG-25 MCG/INH 1 INH INHALED ONCE A DAY A ctive Levocetirizine Dihydrochloride 5 MG 1 tab(s) orally once a day (in the evening) Active CPAP MACHINE WITH ADULT SETUP Active Eliquis 5 MG as directed Orally Active Xhance 93 MCG/ACT 2 sprays (1 spray in each nostril) Nasally Twice a day Active Clotrimazole 1 % 1 application Front Desk Lead ally Twice a day Active Ciprofloxacin-dexAMETHasone 0.3-0.1 % 3 drops in left ear Otic Twice a day Active Tylenol Extra Strength 500 MG 2 tablets Orally daily Activ e Social History Tobacco Use: Social History Observation Description Date Details (start date - stop date) Former Smoker NA - NA Smoking: Question Answer Notes Are you a: former smoker How long has it been since you last smoked? > 10 years Problems Problem Type SNOMED Code ICD Code Onset Dates Problem Status W/U Status Risk Notes Problem Gouty arthritis of left great toe (1215008558146 100) Gouty arthritis of left great toe (M10.9) Active confirmed Vital Signs Temperature 97.6 degrees Fahrenheit 01/18/20 25 Heart Rate 94 /min 01/17/2025 Blood pressure systolic 130 mm Hg 01/18/20 25 Blood pressure diastolic 60 mm Hg 025 Height 66.5 in 01/17/2025 Weight 268 lbs 01/17/2025 BMI 42.6 kg/m2 01/17/2025 Encounters Encounter Location Date Provider Diagnosis [facility] [address] [place] [address] 01/17/2025 Maurilio Hi Gouty arthritis of left great toe M10.9 ; Pain in right foot M79.671 and Pain in left foot M79.672 Assessments Encounter Date Diagnosis (ICD Code) Assessment Notes Treatment Notes Treatment Clinical Notes Section Notes 01/17/2025 Gouty arthritis of left great toe (ICD-10 - M10.9) Probable gouty arthritis, check labs, start colchicine. Discussed side effects of colchicine. Check x-rays to look for crystals and also to make sure there is no other problems given his history of trauma and arthritis Please note I will review labs and x-rays personally 01/17/2025 Pain in right foot (ICD-10 - M79.671) 01/17/2025 Pain in left foot (ICD-10 - M79.672) Plan Of Treatment Medication Medication Name Sig Start Date Stop Date Notes Colchicine 0.6 MG 1 tablet Orally Twic e a day; Duration: 7 days 01/17/2025 Treatment Notes Assessment Notes Gouty arthritis of left great toe Probable gouty arthritis, check labs, start colchicine. Discussed side effects of colchicine. Check x-rays to look for crystals and also to make sure there is no other problems given his history of trauma and arthritis Please note I will review labs and x-rays personally Pending Test Test Name Order Date X ray : Foot, Left 01/17/2025 X ray : Foot, Right 01/17/2025 BASIC METABOLIC PANEL (48424) 01/17/2025 URIC ACID (905) 01/17/2025 CBC (INCLUDES DIFF/PLT) (6399) SED RATE BY MODIFIED WESTERGREN (809) Next Appt Details Follow Up: prn, Reason: Provider Name:Maurilio Hi, 02/07/2025 12:30:00 PM, [address] [facility], [address], [place], [address], Progress Notes * Reji WELLERDOB: [birth year] (74 yo M)Acc No.[id number]:01/17/2025 Progress Notes Patient: Reji CUADRA Provider: Abdiaziz Hi MD :1950 A ge:74 Y S ex:Male Date:01/17/2025 Address:[address], [id number] Subjective: * Chief Complaints: * 1 . Possible gout-lt foot-great toe. * HPI: g en: Home health nurses called us today, patient had swelling of the MCP joint on the left foot, no trauma, no fevers. No other joints involved, denies any tripping, denies any other symptomatology. 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 Medical therapy recommended, Wound on Left Hip. * Social History: S moking A re you a: f ormer smoker, H ow long has it been since you last smoked??> 10 years. R ecreational drug use: no. Exercise: no. Home smoke detector use: yes. Caffeine: yes, frequency: 1 cup coffee. Living Will: No. Alcohol: no. Sexually active: yes. Travel outside [place]: no. Occupation: Retired. * Medications: T aking Tylenol Extra Strength 500 MG Tablet 2 tablets Orally daily , Taking Clotrimazole 1 % Solution 1 application Externally Twice a day , Taking Ciprofloxacin-dexAMETHasone 0.3-0.1 % Suspension 3 drops in left ear Otic Twice a day , Taking Eliquis 5 MG Tablet as directed Orally [...] a day (in the evening) , Taking Carvedilol 3.125 MG Tablet 1 [...] , Taking Vitamin D (Ergocalciferol) 1.25 MG (37273 UT) Capsule 1 cap(s) orally every 2 weeks , Discontinued Tylenol 325 MG Tablet 2 tab(s) orally every 6 hours , Medication List reviewed and reconciled with the patient * Allergies: N .K.D.A. Objective: * Vitals: N urse: jl, Pain: 0, Temp: 97.6, RR: 20, HR: 94, BP: 130/60, Ht: 66.5, Wt: 268, BMI:42.6. * Examination: G eneral Examination: Hayley cuellar has bunions bilaterally, they are both little bit red but the left one is tender especially with flexion of the MCP joint. The toe is slightly red but no evidence of crepitus or cellulitis, he does have significant onychomycosis on all of his toenails. Assessment: * Assessment: 1. G outy arthritis of left great toe - M10.9 (Primary) 2 . P ain in right foot - M79.671 3 . P ain in left foot - M79.672 Plan: * Treatment: ?Imaging: X ray : Foot, Right* Notes: Probable gouty arthritis, check labs, start colchicine. Discussed side effects of colchicine. Check x-rays to look for crystals and also to make sure there is no other problems given his history of trauma and arthritis Please note I will review labs and x-rays personally??2.?Pain in right foot?LAB: BASIC METABOLIC PANEL (14295) ?LAB: URIC ACID (905) ?LAB: CBC (INCLUDES DIFF/PLT) (6399) ?LAB: SED RATE BY MODIFIED WESTERGREN (809) ?Imaging: X ray : Foot, Left * ?Imaging: X ray : Foot, Right* 3.?Pain in left foot?LAB: BASIC METABOLIC PANEL (62950) ?LAB: URIC ACID (905) ?LAB: CBC (INCLUDES DIFF/PLT) (6399) ?LAB: SED RATE BY MODIFIED WESTERGREN (809) ?Imaging: X ray : Foot, Left * ?Imaging: X ray : Foot, Right* * Procedure Codes: G 2211 Complex e/m visit add on * Follow Up: p rn * * Sign off status: Completed true * Provider: Abdiaziz Hi MD Date: Generated for Tierney abad/Lisa/eTransmitting on: 03:43 PM EDT History and Physical Notes * HPI (History of Present Illness) Category Sub-Category Detail Notes Category Not es [facility]annette ses called us today, patient had swelling of the MCP joint on the left foot, no trauma, no fevers. No other joints involved, denies any tripping, denies any other symptomatology Examination Category Sub-Category Detail Notes Category Not es General Examination Patient has bunions bilaterally, they are both little bit red but the left one is tender especially with flexion of the MCP joint. The toe is slightly red but no evidence of crepitus or cellulitis, he does have significant onychomycosis on all of his toenails.
--- NOTE | 2025-01-17 15:30 | XR_ITS ---
FINAL REPORT CLINICAL HISTORY: GOUTY OF LEFT GREAT TOE PAIN IN RIGHT AND LEFT FOOT COMPARISON: None FINDINGS: LEFT FOOT Three views of the left foot demonstrate no acute fracture or dislocation. There is advanced joint space narrowing of the first MTP joint. Mild lateral subluxation is noted of the first proximal phalange. There is an accessory navicular. Moderate plantar spur is noted. The soft tissues are unremarkable. IMPRESSION: No acute bony abnormality. Hypertrophic changes of osteoarthritis most evident at the first MTP joint. Reviewed, Interpreted and Dictated by Juan F Posadas MD Transcribed by Danay Smith Authenticated and . [facility]
--- NOTE | 2025-01-17 15:30 | XR_ITS ---
FINAL REPORT CLINICAL HISTORY: gout in great toe COMPARISON: None FINDINGS: RIGHT FOOT Three views of the right foot demonstrate no acute fracture or dislocation. There is advanced joint space narrowing of the first MTP joint. Mild lateral subluxation is noted of the first proximal phalange. There is an accessory navicular. Moderate plantar spur is noted. The soft tissues are unremarkable. IMPRESSION: No acute bony abnormality. Hypertrophic changes of osteoarthritis most evident at the first MTP joint. Reviewed, Interpreted and Dictated by Juan F Posadas MD Transcribed by Danay Smith Authenticated and [facility]
--- OUTSIDE RECORDS SUMMARY | 2025-01-17 15:44 | XMS_ITS | Clinical Summary ---
[facility] Address [address] [place] [address] Care Team Providers Care Core Feeder Name Role Phone Lidya Douglas Primary Care Provider [phone] Allergies No known active allergies Medications albuterol [...] tablet by mouth Daily. Active nystatin (MYCOSTATIN) 826338 UNIT/GM ointment Apply 1 Application topically to [...] or training? Not on file Preferred Language Hungarian 02/22/2024 Sex and Gender Information Value Date [...] ONCE Completed 03/16/2024 Insurance 2023 [place] [id number] [employer] NON PAR MEDICARE A & B Member Subscriber Plan / Payer (Ef fective 2017-Present) Name:Reji Carrillo Member ID:[id number] Relation to Subscriber:Self Name:Reji Carrillo Subscriber ID:[id number] Payer ID:[id number] Group ID:Not on file Type:Not on file Address: [address] [place] [id number] [facility] [employer] Care Teams Core Feeder Relationship Specialty Start Date End Date Lidya Douglas PA [address] [place] [address] PCP - General Physician Material Chaser 02/22/24
--- OUTSIDE RECORDS SUMMARY | 2025-01-17 15:44 | XMS_ITS | Referral Summary ---
Author Organization [employer] ([place], [place], [place], [place]) Address [address] [place] [address] Care Team Providers Care Milling Planer Operator Name Role Phone Skyler Guerra MD Unavailable [phone] Randi Baumann MD Unavailable [phone] Humera Kelley Unavailable Provider, Not In System MACHINE MOLDER SQUEEZE Unavailable Sabine vailable Niels Dawn MD Unavailable [phone] Giovanni Cerrato MACHINE MOLDER SQUEEZE Unavailable [phone] Grady English MD Unavailable Lidya Douglas PA-C Primary Care Provider [phone] Hilda Jama MACHINE MOLDER SQUEEZE Unavailable Allergies No known active allergies Medications [...] Date Vahid rded Speak language other than Bolivian at home Not on file 04/03/2023 Want [...] Not on file Insurance 2023 [place] [id number] MEDICARE PART A B Care Teams Milling Planer Operator Relationship Specialty Start Date End Date Lidya Douglas PA-C [address] [place] [address] PCP - General 08/12/23 Skyler Guerra MD [address] [place] [address] Chinchilla Machine Operator Pulmonary Disease 10/28/22 Randi Baumann MD [address] [place] [address] Consulting Physician General Internal Medicine 10/28/22 Humera Kelley [address] [place] [address] Neurologist Neurology 10/28/22 Provider, Not In System, MACHINE MOLDER SQUEEZE [place] Referring Physician Cardiology 10/28/22 Niels Dawn MD [address] [facility] [address] [place] [address] Surgeon Cardiothoracic Surgery 11/03/22 Giovanni Cerrato, MACHINE MOLDER SQUEEZE [address] [facility] [address] [place] [address] Nurse Practitioner Cardiology 06/10/23 Grady English MD [address] [facility] [place] [address] Interventional Cardiology 06/15/23 Hilda Jama, MACHINE MOLDER SQUEEZE [address] [facility] [address] [place] [address] Cardiology 08/17/23
--- OUTSIDE RECORDS SUMMARY | 2025-01-17 15:45 | XMS_ITS | Clinical Summary ---
Author Organization Healthcare Address [address] [place] [address] Care Team Providers Care Parallel Computing Software Engineer Name Role Phone Naresh Moura MD Primary Care Provider [phone] Allergies No known active allergies Medications albuterol [...] day. Active ergocalciferol (Vitamin D-2) 1.25 MG (76578 UT) capsule Take 1 capsule (50,000 Units) [...] any time in the past 12 [facility], were you homeless or living in a [...] 2012 [facility]-Abdominal Aortic Aneurysm (AAA) Screening 2017 [facility]-Diabetes: Hemoglobin A1C 08/21/2024 02/22/2024 [facility]- SDOH Screenings 09/14/2024 [facility]-Adult SDOH Screenings 09/14/2024 03/16/2024 [id number] Vaccine ( season) 2024 02/18/2021, 07/03/2020, 06/05/2020 [...] age to complete this topic Insurance MEDICARE [facility] Advance Directives Documents on File Type Date Recorded Patient Boilermaker Fitter Expl anation Advance Directives and Livin g Will 03/25/2024 10:29 AM * Full Code (Latest Code Status on File) Date Activated Date Inactivated Comments 03/25/2024 11:45 AM * Full Code Date Activated Date Inactivated Comments 03/14/2024 12:59 PM 03/25/2024 11:45 AM Question Answer Comments Patient has decision-making capacity? Yes Care Teams Parallel Computing Software Engineer Relationship Specialty Start Date End Date Naresh Moura MD [address] [place] [address] PCP - General 08/02/20
--- OUTSIDE RECORDS SUMMARY | 2025-01-17 15:45 | XMS_ITS | Clinical Summary ---
Author Organization [employer] ([place], [place], [place], [place]) Address [address] [place] [address] Care Team Providers Care Fire Tower Keeper Name Role Phone Skyler Guerra MD Unavailable [phone] Randi Baumann MD Unavailable [phone] Humera Kelley Unavailable Provider, Not In System CUTTING SUPERVISOR Unavailable Sabine vailable Niels Dawn MD Unavailable [phone] Giovanni Cerrato CUTTING SUPERVISOR Unavailable [phone] Grady English MD Unavailable Lidya Douglas PA-C Primary Care Provider [phone] Hilda Jama CUTTING SUPERVISOR Unavailable [phone] Allergies No known active allergies Medications albuterol [...] Date Vahid rded Speak language other than Cameroonian at home Not on file 04/03/2023 Want [...] 03/18/2020, 12/02/2016 Insurance [address] [place] [id number] [address] [place] [address] [place] [address] Care Teams Fire Tower Keeper Relationship Specialty Start Date End Date Lidya Douglas PA-C [address] [place] [address] PCP - General 08/12/23 Skyler Guerra MD [address] [place] [id number] Sheet Rock Taper Pulmonary Disease 10/28/22 Randi Baumann MD [address] [place] [address] Consulting Physician General Internal Medicine 10/28/22 Humera Kelley [address] [place], [place] [address] Neurologist Neurology 10/28/22 Provider, Not In System, CUTTING SUPERVISOR [place] Referring Physician Cardiology 10/28/22 Niels Dawn MD [address] [facility] [address] [place] [address] Surgeon Cardiothoracic Surgery 11/03/22 Giovanni Cerrato, CUTTING SUPERVISOR [address] [facility] [address] [place], [place] [id number] Nurse Practitioner Cardiology 06/10/23 Grady English MD [address] [facility] [place] [phone] Interventional Cardiology 06/15/23 Hilda Jama, CUTTING SUPERVISOR [address] [facility] [address] [place], [place] [id number] Cardiology 08/17/23
== END 2025-01-17 23:59 | disposition home or self-care (01) ==
LOC: RAD 15:25
PROVIDERS: PCP Internal Medicine Adolescent Medicine; Visit Provider Internal Medicine Adolescent Medicine
DX: M19.072 Primary osteoarthritis, left ankle and foot (principal); M19.071 Primary osteoarthritis, right ankle and foot; M10.9 Gout, unspecified
CPT/HCPCS: 73630

== ENCOUNTER 2025-02-27 08:55 | Day surgery (SDC) | payer MEDICARE, SELFPAY ==
[2025-02-27 08:56] VITALS: BP 138/63; PULSE 59; RESP 18; O2SAT 95; BMI 41.5
[2025-02-27 09:26] VITALS: BP 138/63; PULSE 59; RESP 18; O2SAT 95
[2025-02-27] MEDS: DEXAMETHASONE 10MG/ML 1ML VIAL 10 MG (09:31)
[2025-02-27 09:32] VITALS: BP 138/63; PULSE 59; RESP 18; O2SAT 95
--- NOTE | 2025-02-27 09:35 | P.PCN_ITS ---
Procedure Date: 02/27/25 Time: 09:15 Anesthesiologist:: Jl Doherty CRNA Complications:: None Pre-procedure Diagnosis:: Degenerative disc cervical spine multilevels. Cervical radiculopathy. Post-procedure Diagnosis:: Same Indications for Procedure:: Patient very pleasant 74-year-old male who comes to clinic today for cervical epidural steroid injection. Patient describes posterior cervical neck pain as well as bilateral shoulder and arm radicular symptoms at times. He rates his pain 7/10. Procedure Details:: Procedure:Cervical epidural steroid injection Informed consent was obtained and the risks and benefits of the procedure were explained to the patient. The patient was taken to the procedure room and noninvasive monitors placed, including noninvasive blood pressure cuff and pulse oximeter. The neck was prepped using Chloraprep as a cleansing solution. The C6- C7 interspace was viewed using fluroscopy. The skin and subcutaneous tissues were anesthetized using lidocaine 1.5% and a 25-gauge needle. After this an 18- gauge Touhy epidural needle was placed into the C6-C7 interspace under fluroscopy guidance and advanced using loss of resistance to air until the epidural space was encountered. After confirmation of needle placement in the epidural space using contrast dye, dexamethasone 10 mg ( 1 ML) was incrementally injected into the cervical epidural space.~ The patient tolerated the procedure well with no complications. The patient was observed in the Pain Clinic and then discharged home neurologically intact. Plan and Disposition:: Patient was discharged without incident.
[2025-02-27 09:39] VITALS: BP 115/61; PULSE 77; RESP 16; O2SAT 92
== END 2025-02-27 09:39 | disposition home or self-care (01) ==
PROVIDERS: PCP Internal Medicine Adolescent Medicine; Visit Provider Nurse Anesthetist, Certified Registered
DX: M50.10 Cervical disc disorder with radiculopathy, unspecified cervical region (principal); Z87.891 Personal history of nicotine dependence
CPT/HCPCS: 62321; J1100